=== PATIENT | female | born 1945 | race Caucasian/White ===

== ENCOUNTER 2016-05-20 13:05 | Observation (INO) | payer MEDICARE, OTHER ==
[2016-05-20] MEDS ORDERED: NITROGLYCERIN SL TABS 0.4 MG TAB SUBLINGUAL STA (13:31)
--- NOTE | 2016-05-20 13:36 | ED ---
Chest Pain HPI - General Chief Complaint: Chest Pain Stated Complaint: Gas, Chest Ache Time Seen by Provider: 05/20/16 13:17 Source: patient, RN notes reviewed Mode of arrival: wheelchair Limitations: no limitations - History of Present Illness Initial Comments: This is a 71-year-old female with a history of extensive heart disease including ND. A cath with stents and coronary artery bypass 3 who states she had the onset of chest pain and pressure for the past couple days. She states it's 4-5/10 in severity she then belching a lot which does seem to help the pain and pressure. She does have a history of cholecystectomy in the past. She also has reflux no history of ulcers. She denies any fevers chills overt nausea vomiting or sweats. MD Complaint: chest pain, other - Related Data Home Medications Medication Instructions Recorded Confirmed Atorvastatin [Lipitor] 80 mg PO DAILY 08/08/14 05/20/16 Calcium Carbonate/Vitamin D3 2 tab PO DAILY 08/08/14 05/20/16 [Calcium 600-Vit D3 400 Tablet] Fenofibrate Nanocrystallized 145 mg PO DAILY 08/08/14 05/20/16 [Tricor] Insulin Glargine [Lantus] 50 unit SQ HS 08/08/14 05/20/16 Insulin Glulisine [Apidra] See Protocol SQ ACHS PRN 08/08/14 05/20/16 Nitroglycerin Sl Tabs [Nitrostat] 0.4 mg SUBLINGUAL Q5M PRN 08/08/14 05/20/16 Sertraline [Zoloft] 50 mg PO DAILY 08/08/14 05/20/16 Isosorbide Mononitrate ER [Imdur] 60 mg PO DAILY 11/14/14 05/20/16 Clopidogrel [Plavix] 75 mg PO HS 11/22/14 05/20/16 Lansoprazole [Prevacid] 30 mg PO DAILY 11/22/14 05/20/16 Aspirin EC [Ecotrin] 325 mg PO DAILY 05/20/16 05/20/16 Carvedilol [Coreg] 25 mg PO BID 05/20/16 05/20/16 Previous Rx's Medication Instructions Recorded Lisinopril [Zestril] 10 mg PO DAILY #30 tab 08/10/14 Spironolactone [Aldactone] 25 mg PO DAILY #30 tab 08/10/14 Allergies Allergy/AdvReac Type Severity Reaction Status Date / Time adhesive Allergy Itching Verified 05/20/16 14:03 codeine Allergy Hallucinati Verified 05/20/16 14:03 ons dipyridamole Allergy heart Verified 05/20/16 14:03 [From Persantine] stopped metformin AdvReac Unknown Verified 05/20/16 14:03 Review of Systems ROS Statement: Those systems with pertinent positive or pertinent negative responses have been documented in the HPI. ROS Other: All systems not noted in ROS Statement are negative. EKG Findings - EKG Results: EKG: interpreted by ERMD (Additionally the EKG was compared with one submitted from 12/15/14 no definite acute changes), sinus rhythm (Sinus rhythm a rate of 83 OK interval 198 QRS duration 122 QT/QTC of 420/493 evidence of old inferior changes nonspecific ST-T wave configuration.) Past Medical History Past Medical History: Coronary Artery Disease (CAD), Chest Pain / Angina, Diabetes Mellitus, GERD/Reflux, Hyperlipidemia, Hypertension, Myocardial Infarction (ND), Osteoarthritis (OA), Syncope Additional Past Medical History / Comment(s): POLIO, ISCHEMIC CARDIOMYOPATHY EF 30%, PAD, ARRYTHMIA, SEE H&P Last Myocardial Infarction Date:: 2012 History of Any Multi-Drug Resistant Organisms: None Reported Past Surgical History: Appendectomy, Cholecystectomy, Coronary Bypass/CABG, Heart Catheterization, Heart Catheterization With Stent, Hysterectomy Additional Past Surgical History / Comment(s): joanna carotid endarderectomies, ovarian cyst, STENT LT SUBCLAVIAN - TOTAL 4 STENTS. Past Anesthesia/Blood Transfusion Reactions: No Reported Reaction Date of Last Stent Placement:: 11/2014 Type of Cardiac Device: AICD Past Psychological History: Depression Smoking Status: Never smoker Past Alcohol Use History: None Reported Past Drug Use History: None Reported - Past Family History Father Family Medical History: Cancer Mother Family Medical History: Coronary Artery Disease (CAD), Hyperlipidemia, Hypertension Additional Family Medical History / Comment(s): CABG General Exam - General Exam Comments Initial Comments: This is a well-developed well-nourished awake alert oriented 3 female she is actively belching Limitations: no limitations General appearance: alert, anxious Head exam: Present: atraumatic, normocephalic, normal inspection Eye exam: Present: normal appearance, PERRL, EOMI. Absent: scleral icterus, conjunctival injection, periorbital swelling ENT exam: Present: normal exam, mucous membranes moist Neck exam: Present: normal inspection. Absent: tenderness, meningismus, lymphadenopathy Respiratory exam: Present: normal lung sounds bilaterally. Absent: respiratory distress, wheezes, rales, rhonchi, stridor Cardiovascular Exam: Present: regular rate, normal rhythm, normal heart sounds. Absent: systolic murmur, diastolic murmur, rubs, gallop, clicks GI/Abdominal exam: Present: soft, normal bowel sounds, other (Increased tympany no tenderness on palpation no guarding rebound masses or bruits). Absent: distended, tenderness, guarding, rebound, rigid Extremities exam: Present: normal inspection, full ROM, normal capillary refill. Absent: tenderness, pedal edema, joint swelling, calf tenderness Back exam: Present: normal inspection Neurological exam: Present: alert, oriented X3, CN II-XII intact Psychiatric exam: Present: normal affect, normal mood Skin exam: Present: warm, dry, intact, normal color. Absent: rash Course Vital Signs 05/20/16 05/20/16 05/20/16 13:12 15:25 16:08 Temperature 98.4 F Pulse Rate 82 86 82 Respiratory 16 16 Rate Blood Pressure 165/67 163/74 155/64 O2 Sat by Pulse 95 97 100 Oximetry - Reevaluation(s) Reevaluation #1: 05/20/16 16:14 Patient states he had minimal relief from nitroglycerin the GI cocktail however did help somewhat Chest Pain MDM - MDM Any review the imaging no acute findings. Patient states she still have recurrent retrosternal chest discomfort with belching she later stated that she has she did get some relief in the nitroglycerin. I did discuss the case with Dr. Lewis the patient will be admitted with cardiology consultation. Critical Care Time Critical Care Time: Yes Critical Care Time: 31 minutes of critical care time which includes initial presentation with history physical lab and x-ray orders. Reevaluation the patient multiple occasions discussion with the patient and family regarding findings as well as the admitting physician. Evaluation x-ray and lab orders documentation. Disposition Clinical Impression: Unstable angina pectoris, Atypical chest pain Disposition: [facility] Condition: Stable
[2016-05-20 13:48] LABS: Basophils % (A) 0 %; CH 28.8; CHCM 33.3; Eosinophils # (A) 0.1 k/uL (0-0.7); Eosinophils % (A) 0 %; HCT 34.8 % (34.0-46.0); HDW 2.94; HGB 11.5 gm/dL (11.4-16.0); Luc # (Auto) 0.12; Luc % (Auto) 1; Lymphocytes # (A) 0.8 k/uL (1.0-4.8); Lymphocytes % (A) 7 %; MCH 28.8 pg (25.0-35.0); MCHC 33.1 g/dL (31.0-37.0); MCV 86.9 fL (80.0-100.0); Monocytes # (A) 0.5 k/uL (0-1.0); Monocytes % (A) 4 %; Neutrophils # (A) 10.7 k/uL (1.3-7.7); Neutrophils % (A) 88 %; WBC 12.1 k/uL (3.8-10.6); WBC (Perox) 12.68
--- NOTE | 2016-05-20 13:56 | XR ---
EXAMINATION TYPE: XR chest 2V DATE OF EXAM: 05/20/2016 1:48 PM COMPARISON: 01/11/2015 HISTORY: Chest pain FINDINGS: The lungs are clear and there is no pneumothorax, pleural effusion, or focal pneumonia. Heart is enl arged, cardiac device, and postsurgical changes noted. Atherosclerotic change aorta. Surgical clips in the abdomen. Hypertrophic change of the spine. IMPRESSION: 1. No acute process.
[2016-05-20] MEDS ORDERED: MAG HYDROX/AL HYDROX/SIMETH 30 ML, HYOSCYAMINE ELIXIR 10 ML, CIMETIDINE HCL 300 MG PO STA ×3 (14:00)
[2016-05-20 14:01] LABS: ALT 30 U/L (9-52); AST 26 U/L (14-36); Alkaline Phosphatase 66 U/L (38-126); Amylase <30 U/L (30-110); Anion Gap 17 mmol/L; Blood Urea Nitrogen 25 mg/dL (7-17); Calcium 9.7 mg/dL (8.4-10.2); Carbon Dioxide 24 mmol/L (22-30); Chloride 95 mmol/L (98-107); Glucose 356 mg/dL (74-99); INR 1.2 (<1.1); Magnesium 1.3 mg/dL (1.6-2.3); Non-African American GFR(MDRD) >60 (>60 ml/min/1.73 sqM); Partial Thromboplastin Time 23.2 sec (22.0-30.0); Potassium 4.5 mmol/L (3.5-5.1); Prothrombin Time 11.7 sec (9.0-12.0); Sodium 136 mmol/L (137-145); Total Bilirubin 0.9 mg/dL (0.2-1.3)
[2016-05-20 14:07] LABS: Creatine Kinase 21 U/L (30-135)
[2016-05-20] MEDS ORDERED: MAGNESIUM SULFATE-D5W PMX 1 GM in DEXTROSE/WATER 1 100ML.BAG IVPB ONE (14:09)
[2016-05-20] MEDS ORDERED: SODIUM CHLORIDE 0.9% 1,000 ML IV STA (14:09)
[2016-05-20 14:20] LABS: Creatine Kinase MB <0.2 ng/mL (0.0-2.4); Troponin I <0.012 ng/mL (0.000-0.034)
[2016-05-20] MEDS ORDERED: NITROGLYCERIN OINT 1 INCH/GM PACKET TOPICAL STA (16:13)
[2016-05-20] MEDS ORDERED: HEPARIN SODIUM,PORCINE 5,000 UNIT/ML 1 ML VIAL IV ONE (16:17)
[2016-05-20] MEDS ORDERED: NITROGLYCERIN SL TABS 0.4 MG TAB SUBLINGUAL PRN (16:17)
[2016-05-20] MEDS ORDERED: HEPARIN SODIUM,PORCINE/D5W PMX 25,000 UNIT in DEXTROSE/WATER 1 500ML.BAG IV SCH (16:30)
[2016-05-20 17:16] LABS: Glucose,Whole Blood 294 mg/dL (75-99)
[2016-05-20 18:12] VITALS: BMI 29.2
[2016-05-20] MEDS: NITROGLYCERIN OINT 1 INCH/GM PACKET TOPICAL SCH (18:40)
[2016-05-20] MEDS: CARVEDILOL 12.5 MG TAB PO SCH (18:44)
[2016-05-20] MEDS: CLOPIDOGREL 75 MG TAB PO SCH (20:26)
[2016-05-20 20:28] LABS: Creatine Kinase 27 U/L (30-135)
[2016-05-20] MEDS: MAG HYDROX/AL HYDROX/SIMETH 30 ML CUP PO PRN (20:28)
[2016-05-20] MEDS ORDERED: PROCHLORPERAZINE 5 MG TAB PO PRN (20:45)
[2016-05-20] MEDS: ONDANSETRON 4 MG/2 ML VIAL IVP PRN (20:49)
[2016-05-20 21:09] LABS: Creatine Kinase MB <0.2 ng/mL (0.0-2.4); Troponin I 0.013 ng/mL (0.000-0.034)
[2016-05-20 21:29] LABS: Glucose,Whole Blood 335 mg/dL (75-99)
[2016-05-20] MEDS: INSULIN LISPRO (humaLOG) 300 UNIT/3 ML VIAL SQ SCH (21:34)
[2016-05-20] MEDS: INSULIN GLARGINE 100 UNIT/ML 10 ML VIAL SQ SCH (21:34)
[2016-05-20] MEDS: PANTOPRAZOLE 40 MG/10 ML VIAL IVP SCH (22:12)
[2016-05-21] MEDS ORDERED: HEPARIN SODIUM,PORCINE 5,000 UNIT/ML 1 ML VIAL IV STA (00:44)
[2016-05-21] MEDS: NITROGLYCERIN OINT 1 INCH/GM PACKET TOPICAL SCH ×4 (01:10→17:48)
[2016-05-21 02:04] LABS: Creatine Kinase 35 U/L (30-135)
[2016-05-21 02:18] LABS: Creatine Kinase MB <0.2 ng/mL (0.0-2.4); Troponin I 0.021 ng/mL (0.000-0.034)
[2016-05-21] MEDS: ONDANSETRON 4 MG/2 ML VIAL IVP PRN ×2 (04:30→12:31)
[2016-05-21 06:37] LABS: Glucose,Whole Blood 99 mg/dL (75-99)
[2016-05-21] MEDS ORDERED: PANTOPRAZOLE 40 MG TABLET PO SCH (07:30)
[2016-05-21 08:27] LABS: Anion Gap 12 mmol/L; Blood Urea Nitrogen 20 mg/dL (7-17); Calcium 8.8 mg/dL (8.4-10.2); Carbon Dioxide 27 mmol/L (22-30); Chloride 100 mmol/L (98-107); Cholesterol 114 mg/dL (<200); Glucose 88 mg/dL (74-99); HDL Cholesterol 31 mg/dL (40-60); Magnesium 1.8 mg/dL (1.6-2.3); Non-African American GFR(MDRD) >60 (>60 ml/min/1.73 sqM); Sodium 139 mmol/L (137-145); Triglycerides 130 mg/dL (<150)
[2016-05-21] MEDS ORDERED: ISOSORBIDE MONONITRATE ER 60 MG TAB.ER.24H PO SCH (09:00)
--- NOTE | 2016-05-21 09:10 | P.CRDCN ---
History of Present Illness Consult date: 05/21/16 History of present illness: This is a 71-year-old female with history of coronary artery disease and previous bypass surgery and also subclavian stenosis status post stent placement comes to the hospital with complaints of gaseous abdominal and chest discomfort and belching. She doesn't complain of any significant chest pain that reminded her off the previous ischemic episodes. She did have a bowel movement prior to coming to the hospital. Doesn't seem to be warming. She still has mild discomfort in the abdomen. Abdomen is distended. This patient has history of previous bypass surgery and also AICD placement and follows with Dr. Gutierrez. Her EKGs did not reveal any acute changes of ischemia. Her cardiac enzymes studies are negative for myocardial infarction. At this point I 'm going to get a plain x-ray of the abdomen and also get a the surgical or GI consult for further evaluation of the symptoms which seemed to be continue. If GI workup is negative, may consider doing a nuclear stress test to rule out any progression of ischemic heart disease. We'll also obtain an echocardiogram Review of Systems As per the chart Past Medical History Past Medical History: Coronary Artery Disease (CAD), Chest Pain / Angina, Diabetes Mellitus, GERD/Reflux, Hyperlipidemia, Hypertension, Myocardial Infarction (HI), Osteoarthritis (OA), Syncope Additional Past Medical History / Comment(s): POLIO, ISCHEMIC CARDIOMYOPATHY EF 30%, PAD, ARRYTHMIA, SEE H&P Last Myocardial Infarction Date:: 2012 History of Any Multi-Drug Resistant Organisms: None Reported Past Surgical History: Appendectomy, Cholecystectomy, Coronary Bypass/CABG, Heart Catheterization, Heart Catheterization With Stent, Hysterectomy Additional Past Surgical History / Comment(s): joanna carotid endarderectomies, ovarian cyst, STENT LT SUBCLAVIAN - TOTAL 4 STENTS. Past Anesthesia/Blood Transfusion Reactions: No Reported Reaction Date of Last Stent Placement:: 11/2014 Type of Cardiac Device: AICD Past Psychological History: Anxiety Additional Psychological History / Comment(s): pt. states she has a history of anxiety and it is controlled with Zoloft Smoking Status: Never smoker Past Alcohol Use History: None Reported Past Drug Use History: None Reported - Past Family History Father Family Medical History: Cancer Additional Family Medical History / Comment(s): pt. states her father had throat cancer Mother Family Medical History: Coronary Artery Disease (CAD), Hyperlipidemia, Hypertension Additional Family Medical History / Comment(s): CABG Medications and Allergies Home Medications Medication Instructions Recorded Confirmed Type Atorvastatin [Lipitor] 80 mg PO DAILY 08/08/14 05/20/16 History Calcium Carbonate/Vitamin D3 2 tab PO DAILY 08/08/14 05/20/16 History [Calcium 600-Vit D3 400 Tablet] Fenofibrate Nanocrystallized 145 mg PO DAILY 08/08/14 05/20/16 History [Tricor] Insulin Glargine [Lantus] 50 unit SQ HS 08/08/14 05/20/16 History Insulin Glulisine [Apidra] See Protocol SQ ACHS PRN 08/08/14 05/20/16 History Nitroglycerin Sl Tabs [Nitrostat] 0.4 mg SUBLINGUAL Q5M PRN 08/08/14 05/20/16 History Sertraline [Zoloft] 50 mg PO DAILY 08/08/14 05/20/16 History Isosorbide Mononitrate ER [Imdur] 60 mg PO DAILY 11/14/14 05/20/16 History Clopidogrel [Plavix] 75 mg PO HS 11/22/14 05/20/16 History Lansoprazole [Prevacid] 30 mg PO DAILY 11/22/14 05/20/16 History Aspirin EC [Ecotrin] 325 mg PO DAILY 05/20/16 05/20/16 History Carvedilol [Coreg] 25 mg PO BID 05/20/16 05/20/16 History Allergies Allergy/AdvReac Type Severity Reaction Status Date / Time adhesive Allergy Itching Verified 05/20/16 14:03 codeine Allergy Hallucinati Verified 05/20/16 14:03 ons dipyridamole Allergy heart Verified 05/20/16 14:03 [From Persantine] stopped metformin AdvReac Unknown Verified 05/20/16 14:03 Physical Exam Vitals: Vital Signs Temp Pulse Pulse Resp BP BP Pulse Ox 05/21/16 07:34 100.7 F H 82 16 133/52 95 05/21/16 04:00 100.1 F H 82 18 104/48 98 05/21/16 00:00 100 F H 84 18 120/50 94 L 05/20/16 20:00 84 16 05/20/16 19:54 98.2 F 84 16 151/61 97 05/20/16 19:05 18 01/02/17 17:14 92 20 132/62 97 05/20/16 16:39 99.0 F 85 16 158/61 97 Intake and Output 05/20/16 05/21/16 05/21/16 22:59 06:59 14:59 Intake Total 222 645.192 Balance 222 645.192 Intake: IV 463 0.9 NS @ KVO 240 Heparin Sodium,Porcine/ 223 D5w Pmx 25,000 unit In Dextrose/Water 1 500ml. bag @ 12 UNITS/KG/HR 16. 32 mls/hr IV .Q24H NOE Rx #:[id number] Intake, IV Titration 132.192 Amount Heparin Sodium,Porcine/ 132.192 D5w Pmx 25,000 unit In Dextrose/Water 1 500ml. bag @ 12 UNITS/KG/HR 16. 32 mls/hr IV .Q24H NOE Rx #:[id number] Oral 222 50 Other: Voiding Method Toilet Toilet # Voids 1 1 Weight 68.039 kg GENERAL EXAM: Patient is alert and oriented and doesn't appear to be in any acute distress HEENT: Normocephalic. Normal reaction of pupils, equal size, normal range of extraocular motion. NECK: No masses, no nuchal rigidity. Carotid bruit heard bilaterally CHEST: No chest wall deformity. LUNGS: Equal air entry with no crackles or wheeze. HEART: S1 and S2 normal systolic murmur heard in the aortic area ABDOMEN: Distended, soft, and no rigidity or guarding. Mild tenderness SKIN: No rashes CENTRAL NERVOUS SYSTEM: No focal deficits. EXTREMITIES: No cyanosis, clubbing or edema. Results 05/20/16 13:31 05/21/16 07:20 Cardiac Enzymes 05/20/16 05/21/16 Range/Units 19:45 01:11 CK-MB (CK-2) <0.2 <0.2 (0.0-2.4) ng/mL Troponin I 0.013 0.021 (0.000-0.034) ng/mL Coagulation 05/20/16 05/21/16 Range/Units 23:30 07:20 APTT 30.9 H 49.6 H (22.0-30.0) sec Lipids 05/21/16 Range/Units 07:20 Triglycerides 130 (<150) mg/dL Cholesterol 114 (<200) mg/dL HDL Cholesterol 31 L (40-60) mg/dL Comprehensive Metabolic Panel 05/21/16 Range/Units 07:20 Sodium 139 (137-145) mmol/L Potassium 4.0 (3.5-5.1) mmol/L Chloride 100 (98-107) mmol/L Carbon Dioxide 27 (22-30) mmol/L BUN 20 H (7-17) mg/dL Creatinine 0.85 (0.52-1.04) mg/dL Glucose 88 (74-99) mg/dL Calcium 8.8 (8.4-10.2) mg/dL Current Medications Generic Name Dose Route Start Last Admin Trade Name Freq PRN Reason Stop Dose Admin Al Hydroxide/Mg Hydroxide 30 ml 05/20/16 18:30 05/20/16 20:28 Maalox PO 30 ml QID PRN Administration GI Upset Aspirin 325 mg 05/21/16 09:00 Aspirin PO DAILY [facility] Atorvastatin Calcium 80 mg 05/21/16 09:00 Lipitor PO DAILY [facility] Calcium Carbonate 2 each 05/21/16 09:00 Oscal 500+D PO DAILY [facility] Carvedilol 25 mg 05/20/16 17:30 05/20/16 18:44 Coreg PO 25 mg BID-W/MEALS NOE Administration Clopidogrel Bisulfate 75 mg 05/20/16 21:00 05/20/16 20:26 Plavix PO 75 mg HS [facility] Administration Fenofibrate 160 mg 05/21/16 09:00 Lofibra PO DAILY [facility] Heparin Sodium/Dextrose 25,000 500 mls @ 16.32 mls/hr 05/20/16 16:30 00:42 unit/ IV Solution IV 15 units/kg/hr .Q24H [facility] 20.41 mls/hr Protocol Titration 12 UNITS/KG/HR Insulin Glargine 50 unit 05/20/16 21:00 05/20/16 21:34 Lantus SQ 50 unit HS [facility] Administration Insulin Human Lispro 0 unit 05/20/16 21:00 05/20/16 21:34 Humalog SQ 6 unit ACHS [facility] Administration Protocol Lisinopril 10 mg 05/21/16 09:00 Zestril PO DAILY [facility] Nitroglycerin 1 inch 05/20/16 18:00 05/21/16 05:45 Nitro-Bid Oint TOPICAL Not Given Q6HR [facility] Nitroglycerin 0.4 mg 05/20/16 16:17 Nitrostat SUBLINGUAL Q5M PRN Chest Pain Ondansetron HCl 4 mg 05/20/16 18:29 05/21/16 04:30 Zofran IVP 4 mg Q6HR PRN Administration Nausea And Vomiting Pantoprazole Sodium 40 mg 05/20/16 20:45 05/20/16 22:12 Protonix IVP 40 mg DAILY NOE Administration Prochlorperazine Maleate 5 mg 05/20/16 20:45 Compazine PO Q6HR PRN Nausea And Vomiting Sertraline HCl 50 mg 05/21/16 09:00 Zoloft PO DAILY NOE Spironolactone 25 mg 05/21/16 09:00 Aldactone PO DAILY NOE Intake and Output 05/20/16 05/21/16 05/21/16 22:59 06:59 14:59 Intake Total 222 645.192 Balance 222 645.192 Intake: IV 463 0.9 NS @ KVO 240 Heparin Sodium,Porcine/ 223 D5w Pmx 25,000 unit In Dextrose/Water 1 500ml. bag @ 12 UNITS/KG/HR 16. 32 mls/hr IV .Q24H NOE Rx #:[id number] Intake, IV Titration 132.192 Amount Heparin Sodium,Porcine/ 132.192 D5w Pmx 25,000 unit In Dextrose/Water 1 500ml. bag @ 12 UNITS/KG/HR 16. 32 mls/hr IV .Q24H NOE Rx #:[id number] Oral 222 50 Other: Voiding Method Toilet Toilet # Voids 1 1 Weight 68.039 kg 05/21/16 07:20 EKG Interpretations (text) Sinus rhythm without any acute changes Assessment and Plan (1) Flatulence, eructation and gas pain Status: Acute (2) Atypical chest pain Status: Acute (3) Diabetes Status: Acute (4) Hx of CABG Status: Acute (5) Hyperlipidemia Status: Acute (6) Hypotension Status: Acute (7) Ischemic cardiomyopathy Status: Acute Plan: Her symptoms appear to be atypical for angina. I would recommend obtaining GI/ surgical consult. We'll get a plain x-ray of the abdomen. I'll also obtain an echocardiogram to assess LV function and also to rule out significant aortic stenosis. If GI workup is negative, may consider doing a Lexiscan stress test to rule out any progression of ischemic heart disease.
[2016-05-21 09:11] LABS: Basophils % (A) 0 %; CH 28.6; CHCM 33.3; Eosinophils % (A) 0 %; HCT 29.6 % (34.0-46.0); HDW 2.86; Luc # (Auto) 0.09; Luc % (Auto) 1; Lymphocytes % (A) 12 %; MCH 29.1 pg (25.0-35.0); MCHC 33.8 g/dL (31.0-37.0); MCV 86.2 fL (80.0-100.0); Mean Platelet Volume 9.4; Monocytes # (A) 0.4 k/uL (0-1.0); Monocytes % (A) 5 %; Neutrophils # (A) 6.8 k/uL (1.3-7.7); Neutrophils % (A) 82 %; RBC 3.43 m/uL (3.80-5.40); WBC 8.3 k/uL (3.8-10.6); WBC (Perox) 8.73
[2016-05-21] MEDS: PANTOPRAZOLE 40 MG/10 ML VIAL IVP SCH (09:33)
[2016-05-21] MEDS: INSULIN LISPRO (humaLOG) 300 UNIT/3 ML VIAL SQ SCH ×4 (09:33→22:18)
[2016-05-21 11:07] LABS: Glucose,Whole Blood 90 mg/dL (75-99)
[2016-05-21] MEDS ORDERED: RX INFO: IV CONTRAST WAS GIVEN 1 EACH MISC MISCELLANE PRN (11:49)
[2016-05-21] MEDS: IOHEXOL 350 MG/ML 25 ML BOTTLE (ORAL USE) PO PRN ×2 (12:23→13:33)
--- NOTE | 2016-05-21 12:26 | XR ---
Abdomen HISTORY: Distention, left lower quadrant pain Of the abdomen submitted on 2 images and correlated to previous of 16 November 2012 Surgical clips again noted in the right upper quadrant and right groin. There are vascular calcificat ions present. Intracardiac defibrillator lead is overlying the right ventricle. There is a spinal cur vature. There are overlying cardiac leads. No pneumoperitoneum or bowel obstruction. IMPRESSION: No acute abnormalities evident.
--- NOTE | 2016-05-21 12:26 | ECHOF ---
Referral Reason:assess LV function,rule out stenosis MEASUREMENTS -------- HEIGHT: 152.4 cm WEIGHT: 68.0 kg BP: IVSd: 1.3 cm (0.6 - 1.1) LVIDd: 4.8 cm (3.9 - 5.3) LVPWd: 1.0 cm (0.6 - 1.1) IVSs: 1.7 cm LVIDs: 4.0 cm LVPWs: 0.9 cm Ao Diam: 2.4 cm (2.0 - 3.7) AV Cusp: 1.6 cm (1.5 - 2.6) LA Diam: 4.1 cm (2.7 - 3.8) MV EXCURSION: 21.171 mm (> 18.000) MV EF SLOPE: 73 mm/s (70 - 150) EPSS: 0.7 cm MV E Chauncey: 1.25 m/s MV DecT: 152 ms MV A Chauncey: 1.17 m/s MV E/A Ratio: 1.07 RAP: 5.00 mmHg RVSP: 13.75 mmHg FINDINGS -------- Sinus rhythm. Pacerwire seen in RV and RA. AICD This was a technically good study. There is mild concentric left ventricular hypertrophy. Overall left ventricular systolic function is moderate-severely impaired with, an EF between 30 - 35 %. Inferiorlateral Hypokinesis Septal Hypokinesis The right ventricle is normal in size and function. The left atrium is mildly dilated. The right atrium is normal in size. Aortic valve is trileaflet and is mildly thickened. The mitral valve leaflets are mildly thickened. Mild mitral annular calcification present. Moderate mitral regurgitation is present. Mild tricuspid regurgitation present. The right ventricular systolic pressure, as measured by Doppler, is 13.75mmHg. Pulmonic valve appears structurally normal. The aortic root size is normal. The pericardium is normal. CONCLUSIONS -------- 1. Sinus rhythm. 2. The left atrium is mildly dilated. 3. The right atrium is normal in size. 4. Aortic valve is trileaflet and is mildly thickened. 5. The mitral valve leaflets are mildly thickened. 6. Mild mitral annular calcification present. 7. Moderate mitral regurgitation is present. 8. Mild tricuspid regurgitation present. 9. The right ventricular systolic pressure, as measured by Doppler, is 13.75mmHg. 10. Pulmonic valve appears structurally normal. 11. The aortic root size is normal. 12. Pacerwire seen in RV and RA. 13. The pericardium is normal. 14. AICD 15. This was a technically good study. 16. There is mild concentric left ventricular hypertrophy. 17. Overall left ventricular systolic function is moderate-severely impaired with, an EF between 30 - 35 %. 18. Inferiorlateral Hypokinesis 19. Septal Hypokinesis 20. The right ventricle is normal in size and function. PROTOTYPE CARPENTER: Rima Christianson RDCS
[2016-05-21 12:54] LABS: Hemoglobin A1C 6.4 % (4.2-6.1)
--- NOTE | 2016-05-21 14:17 | P.CONS ---
History of Present Illness - Reason for Consult Consult date: 05/21/16 Abdominal distention excessive belching Requesting physician: Adriana Lewis - History of Present Illness 71-year-old female patient of Dr. Azul with a past medical history of coronary artery disease on aspirin and Plavix, ischemic cardiomyopathy, carotid endarterectomy, subclavian stenosis with stent, AICD, CABG, diabetes mellitus, hypertension, [place], and hyperlipidemia. Presents with 4 day history of abdominal distention, nausea, excessive gaseous belching without chest pain. No history of GERD or EGD. Denies weight loss, vomiting, fever, chills, hematemesis, hematochezia, or melena however T-max 100.7 early this morning. Evaluated by cardiology; EKG did not reveal acute changes of ischemia, troponins negative for [place]. GI workup recommended by cardiology. White count 12.1 currently 8.1. Hemoglobin 11.5 currently 10. Platelet 118. Abdominal x-ray no acute abnormalities evident. Review of Systems All systems: negative (See HPI) Past Medical History Past Medical History: Coronary Artery Disease (CAD), Chest Pain / Angina, Diabetes Mellitus, GERD/Reflux, Hyperlipidemia, Hypertension, Myocardial Infarction ([place]), Osteoarthritis (OA), Syncope Additional Past Medical History / Comment(s): POLIO, ISCHEMIC CARDIOMYOPATHY EF 30%, PAD, ARRYTHMIA, SEE H&P Last Myocardial Infarction Date:: 2012 History of Any Multi-Drug Resistant Organisms: None Reported Past Surgical History: Appendectomy, Cholecystectomy, Coronary Bypass/CABG, Heart Catheterization, Heart Catheterization With Stent, Hysterectomy Additional Past Surgical History / Comment(s): joanna carotid endarderectomies, ovarian cyst, STENT LT SUBCLAVIAN - TOTAL 4 STENTS. Past Anesthesia/Blood Transfusion Reactions: No Reported Reaction Date of Last Stent Placement:: 11/2014 Type of Cardiac Device: AICD Past Psychological History: Anxiety Additional Psychological History / Comment(s): pt. states she has a history of anxiety and it is controlled with Zoloft Smoking Status: Never smoker Past Alcohol Use History: None Reported Past Drug Use History: None Reported - Past Family History Father Family Medical History: Cancer Additional Family Medical History / Comment(s): pt. states her father had throat cancer Mother Family Medical History: Coronary Artery Disease (CAD), Hyperlipidemia, Hypertension Additional Family Medical History / Comment(s): CABG Medications and Allergies Home Medications Medication Instructions Recorded Confirmed Type Atorvastatin [Lipitor] 80 mg PO DAILY 08/08/14 05/20/16 History Calcium Carbonate/Vitamin D3 2 tab PO DAILY 08/08/14 05/20/16 History [Calcium 600-Vit D3 400 Tablet] Fenofibrate Nanocrystallized 145 mg PO DAILY 08/08/14 05/20/16 History [Tricor] Insulin Glargine [Lantus] 50 unit SQ HS 08/08/14 05/20/16 History Insulin Glulisine [Apidra] See Protocol SQ ACHS PRN 08/08/14 05/20/16 History Nitroglycerin Sl Tabs [Nitrostat] 0.4 mg SUBLINGUAL Q5M PRN 08/08/14 05/20/16 History Sertraline [Zoloft] 50 mg PO DAILY 08/08/14 05/20/16 History Isosorbide Mononitrate ER [Imdur] 60 mg PO DAILY 11/14/14 05/20/16 History Clopidogrel [Plavix] 75 mg PO HS 11/22/14 05/20/16 History Lansoprazole [Prevacid] 30 mg PO DAILY 11/22/14 05/20/16 History Aspirin EC [Ecotrin] 325 mg PO DAILY 05/20/16 05/20/16 History Carvedilol [Coreg] 25 mg PO BID 05/20/16 05/20/16 History Allergies Allergy/AdvReac Type Severity Reaction Status Date / Time adhesive Allergy Itching Verified 05/20/16 14:03 codeine Allergy Hallucinati Verified 05/20/16 14:03 ons dipyridamole Allergy heart Verified 05/20/16 14:03 [From Persantine] stopped metformin AdvReac Unknown Verified 05/20/16 14:03 Physical Exam Vitals: Vital Signs Temp Pulse Pulse Resp BP BP Pulse Ox 05/21/16 12:00 86 16 05/21/16 11:41 99.1 F 86 16 97/50 96 05/21/16 08:00 82 16 05/21/16 07:34 100.7 F H 82 16 133/52 95 05/21/16 04:00 100.1 F H 82 18 104/48 98 05/21/16 00:00 100 F H 84 18 120/50 94 L 05/20/16 20:00 84 16 05/20/16 19:54 98.2 F 84 16 151/61 97 05/20/16 19:05 18 05/20/16 17:14 92 20 132/62 97 05/20/16 16:39 99.0 F 85 16 158/61 97 Intake and Output 05/20/16 05/21/16 05/21/16 22:59 06:59 14:59 Intake Total 222 645.192 Balance 222 645.192 Intake: IV 463 0.9 NS @ KVO 240 Heparin Sodium,Porcine/ 223 D5w Pmx 25,000 unit In Dextrose/Water 1 500ml. bag @ 12 UNITS/KG/HR 16. 32 mls/hr IV .Q24H NOE Rx #:[id number] Intake, IV Titration 132.192 Amount Heparin Sodium,Porcine/ 132.192 D5w Pmx 25,000 unit In Dextrose/Water 1 500ml. bag @ 12 UNITS/KG/HR 16. 32 mls/hr IV .Q24H NOE Rx #:[id number] Oral 222 50 Other: Voiding Method Toilet Toilet Toilet # Voids 1 1 Weight 68.039 kg General appearance: The patient is alert, oriented, in no acute distress. Excessive belching throughout exam. HET: Head is normocephalic and atraumatic. Pupils are equal and reactive. Oropharynx is clear without lesions. Neck: Supple without lymphadenopathy. Trachea midline. Heart: S1 S2. Regular rate and rhythm. Lungs: No crackles or wheezes are heard. Abdomen: Soft, nontender, nondistended with bowel sounds. No peritoneal signs. No palpable organomegaly or masses. Extremities: Normal skin color and turgor. No cyanosis, rash, ulceration, clubbing, or edema. Radial and pedal pulses are 2/4 bilaterally. Neurological: No focal deficits. Strength and sensation are grossly intact. Results CBC & Chem 7: 05/21/16 07:20 05/21/16 07:20 Labs: Abnormal Lab Results - Last 24 Hours (Table) 05/20/16 05/20/16 05/20/16 Range/Units 17:09 19:45 21:17 RBC (3.80-5.40) m/uL Hgb (11.4-16.0) gm/dL Hct (34.0-46.0) % Plt Count (150-450) k/uL APTT (22.0-30.0) sec BUN (7-17) mg/dL POC Glucose (mg/dL) 294 H 335 H (75-99) mg/dL Total Creatine Kinase 27 L (30-135) U/L HDL Cholesterol (40-60) mg/dL 05/20/16 05/21/16 05/21/16 Range/Units 23:30 07:20 07:20 RBC 3.43 L (3.80-5.40) m/uL Hgb 10.0 L D (11.4-16.0) gm/dL Hct 29.6 L (34.0-46.0) % Plt Count 118 L (150-450) k/uL APTT 30.9 H (22.0-30.0) sec BUN 20 H (7-17) mg/dL POC Glucose (mg/dL) (75-99) mg/dL Total Creatine Kinase (30-135) U/L HDL Cholesterol 31 L (40-60) mg/dL 05/21/16 Range/Units 07:20 RBC (3.80-5.40) m/uL Hgb (11.4-16.0) gm/dL Hct (34.0-46.0) % Plt Count (150-450) k/uL APTT 49.6 H (22.0-30.0) sec BUN (7-17) mg/dL POC Glucose (mg/dL) (75-99) mg/dL Total Creatine Kinase (30-135) U/L HDL Cholesterol (40-60) mg/dL Abdominal x-ray: report reviewed (Review by Dr. Oro) Assessment and Plan (1) Eructation Narrative/Plan: 71-year-old female with significant cardiac history presents with 4 day history of excessive belching gaseous distention without abdominal pain and weight loss. Status: Acute (2) Abdominal distension (gaseous) Status: Acute Plan: 1. Continue with IV Protonix daily. Hold aspirin and Plavix tonight may resume after EGD evaluation tomorrow. 2. Will proceed with EGD evaluation tomorrow. The aerial tram operator has discussed the risks, benefits and alternative therapies for the above-mentioned procedure and for both sedation/analgesia as well as necessary blood product administration, if indicated, as they pertain to this patient. The patient has indicated understanding and acceptance of the risks and procedures discussed. Thank you for this kind referral and the opportunity to participate in the care of your patient. This consultation was discussed with Dr. Oro. The impression and plan of care have been directed as dictated.
[2016-05-21] MEDS: CARVEDILOL 12.5 MG TAB PO SCH ×2 (14:45→17:48)
[2016-05-21] MEDS: ASPIRIN 325 MG TAB PO SCH (14:46)
[2016-05-21] MEDS: LISINOPRIL 10 MG TAB PO SCH (14:46)
[2016-05-21] MEDS: ATORVASTATIN 80 MG TAB PO SCH (14:46)
[2016-05-21] MEDS: FENOFIBRATE 160 MG TAB PO SCH (14:46)
[2016-05-21] MEDS: CALCIUM CARB-VIT D 500MG-200UN 1 EACH TAB PO SCH (14:46)
[2016-05-21] MEDS: SPIRONOLACTONE 25 MG TAB PO SCH (14:47)
[2016-05-21] MEDS: SERTRALINE 50 MG TAB PO SCH (14:47)
[2016-05-21] MEDS ORDERED: NITROGLYCERIN SL TABS 0.4 MG TAB SUBLINGUAL PRN (15:46)
--- NOTE | 2016-05-21 15:50 | P.HPIM ---
History of Present Illness H&P Date: 05/21/16 Chief Complaint: Belching This is a 71-year-old female patient of Dr. Azul with past history of coronary artery disease status post coronary artery bypass graft and ischemic cardiomyopathy with EF 30%status post AICD placement, diabetes mellitus type 2, gastroesophageal reflux disease, hyperlipidemia, hypertension, syncope episode, polio, peripheral artery disease. Patient states that she had sudden onset of belching for the past 3-4 days that is bothering her a lot. She denies having any diarrhea, blood in her stools. She states she vomited once after she took medications but has not been vomiting regularly. She denies any weight loss. She complains of pain in her left shoulder and left groin. She states her last colonoscopy was 10 years ago without any abnormal findings. She complains of abdominal bloating. She is passing flatus. She has some left lower quadrant pain. The belching does not seem to be related to food that happens all day long. Patient was placed in the observation unit and consult placed with cardiology for chest pain. Cardiology has seen her and recommended GI consult. Echocardiogram was ordered. Consult with Dr. Lopez added and CT of the abdomen and pelvis with contrast ordered. She is scheduled for EGD tomorrow. Temperature max is 100.7. No leukocytosis. Hemoglobin 10.0 hemoglobin A1c 6.4.. Troponin 0.0-1. Triglycerides 1:30, cholesterol 114, LDL 57, HDL 31. Chest x-ray showed no acute process. Abdominal film shows no acute abnormalities. Echocardiogram reveals moderate mitral regurgitation, mild tricuspid regurgitation, mild concentric left ventricular hypertrophy, EF 30-35%. Review of Systems All systems: negative Constitutional: Denies chills, Denies fever Eyes: denies blurred vision, denies pain Ears, nose, mouth and throat: Denies headache, Denies sore throat Cardiovascular: Reports chest pain, Denies shortness of breath Respiratory: Denies cough Gastrointestinal: Reports abdominal pain, Reports belching, Reports bloating, Reports loss of appetite, Denies diarrhea, Denies nausea, Denies vomiting Genitourinary: Denies dysuria, Denies hematuria Musculoskeletal: Denies myalgias Integumentary: Denies pruritus, Denies rash Neurological: Denies numbness, Denies weakness Psychiatric: Denies anxiety, Denies depression Endocrine: Denies fatigue, Denies weight change Past Medical History Past Medical History: Coronary Artery Disease (CAD), Chest Pain / Angina, Diabetes Mellitus, GERD/Reflux, Hyperlipidemia, Hypertension, Myocardial Infarction ([place]), Osteoarthritis (OA), Syncope Additional Past Medical History / Comment(s): POLIO, ISCHEMIC CARDIOMYOPATHY EF 30%, PAD, ARRYTHMIA, SEE H&P Last Myocardial Infarction Date:: 2012 History of Any Multi-Drug Resistant Organisms: None Reported Past Surgical History: Appendectomy, Cholecystectomy, Coronary Bypass/CABG, Heart Catheterization, Heart Catheterization With Stent, Hysterectomy Additional Past Surgical History / Comment(s): joanna carotid endarderectomies, ovarian cyst, STENT LT SUBCLAVIAN - TOTAL 4 STENTS 1. Past Anesthesia/Blood Transfusion Reactions: No Reported Reaction Date of Last Stent Placement:: 11/2014 Type of Cardiac Device: AICD Past Psychological History: Anxiety Additional Psychological History / Comment(s): pt. states she has a history of anxiety and it is controlled with Zoloft Smoking Status: Never smoker Past Alcohol Use History: None Reported Past Drug Use History: None Reported - Past Family History Father Family Medical History: Cancer Additional Family Medical History / Comment(s): pt. states her father had throat cancer Mother Family Medical History: Coronary Artery Disease (CAD), Hyperlipidemia, Hypertension Additional Family Medical History / Comment(s): CABG Medications and Allergies Home Medications Medication Instructions Recorded Confirmed Type Atorvastatin [Lipitor] 80 mg PO DAILY 08/08/14 05/20/16 History Calcium Carbonate/Vitamin D3 2 tab PO DAILY 08/08/14 05/20/16 History [Calcium 600-Vit D3 400 Tablet] Fenofibrate Nanocrystallized 145 mg PO DAILY 08/08/14 05/20/16 History [Tricor] Insulin Glargine [Lantus] 50 unit SQ HS 08/08/14 05/20/16 History Insulin Glulisine [Apidra] See Protocol SQ ACHS PRN 08/08/14 05/20/16 History Nitroglycerin Sl Tabs [Nitrostat] 0.4 mg SUBLINGUAL Q5M PRN 08/08/14 05/20/16 History Sertraline [Zoloft] 50 mg PO DAILY 08/08/14 05/20/16 History Isosorbide Mononitrate ER [Imdur] 60 mg PO DAILY 11/14/14 05/20/16 History Clopidogrel [Plavix] 75 mg PO HS 11/22/14 05/20/16 History Lansoprazole [Prevacid] 30 mg PO DAILY 11/22/14 05/20/16 History Aspirin EC [Ecotrin] 325 mg PO DAILY 05/20/16 05/20/16 History Carvedilol [Coreg] 25 mg PO BID 05/20/16 05/20/16 History Allergies Allergy/AdvReac Type Severity Reaction Status Date / Time adhesive Allergy Itching Verified 05/20/16 14:03 codeine Allergy Hallucinati Verified 05/20/16 14:03 ons dipyridamole Allergy heart Verified 05/20/16 14:03 [From Persantine] stopped metformin AdvReac Unknown Verified 05/20/16 14:03 Physical Exam Vitals: Vital Signs Temp Pulse Pulse Resp BP BP Pulse Ox 05/21/16 11:41 99.1 F 86 16 97/50 96 05/21/16 08:00 82 16 05/21/16 07:34 100.7 F H 82 16 133/52 95 05/21/16 04:00 100.1 F H 82 18 104/48 98 05/21/16 00:00 100 F H 84 18 120/50 94 L 05/20/16 20:00 84 16 05/20/16 19:54 98.2 F 84 16 151/61 97 05/20/16 19:05 18 05/20/16 17:14 92 20 132/62 97 05/20/16 16:39 99.0 F 85 16 158/61 97 Intake and Output 05/20/16 05/21/16 05/21/16 22:59 06:59 14:59 Intake Total 222 645.192 Balance 222 645.192 Intake: IV 463 0.9 NS @ KVO 240 Heparin Sodium,Porcine/ 223 D5w Pmx 25,000 unit In Dextrose/Water 1 500ml. bag @ 12 UNITS/KG/HR 16. 32 mls/hr IV .Q24H NOE Rx #:[id number] Intake, IV Titration 132.192 Amount Heparin Sodium,Porcine/ 132.192 D5w Pmx 25,000 unit In Dextrose/Water 1 500ml. bag @ 12 UNITS/KG/HR 16. 32 mls/hr IV .Q24H NOE Rx #:[id number] Oral 222 50 Other: Voiding Method Toilet Toilet Toilet # Voids 1 1 Weight 68.039 kg Gen: This is a 71-year-old female. She is sitting up in bed and appears to be somewhat uncomfortable due to constant belching. HEENT: Head is atraumatic, normocephalic. Pupils equal, round. Sclerae is anicteric. NECK: Supple. No JVD. No lymphadenopathy. No thyromegaly. LUNGS: Clear to auscultation. No wheezes or rhonchi. No intercostal retractions. HEART: Regular rate and rhythm. Systolic murmur. ABDOMEN: Soft. Distended. Bowel sounds are present. No masses. Mild tenderness to the left lower quadrant. EXTREMITIES: No pedal edema. No calf tenderness. NEUROLOGICAL: Patient is awake, alert and oriented x3. Cranial nerves 2 through 12 are grossly intact. Results CBC & Chem 7: 05/21/16 07:20 05/21/16 07:20 Labs: Abnormal Lab Results - Last 24 Hours (Table) 05/20/16 05/20/16 05/20/16 Range/Units 17:09 19:45 21:17 RBC (3.80-5.40) m/uL Hgb (11.4-16.0) gm/dL Hct (34.0-46.0) % Plt Count (150-450) k/uL APTT (22.0-30.0) sec BUN (7-17) mg/dL POC Glucose (mg/dL) 294 H 335 H (75-99) mg/dL Total Creatine Kinase 27 L (30-135) U/L HDL Cholesterol (40-60) mg/dL 05/20/16 05/21/16 05/21/16 Range/Units 23:30 07:20 07:20 RBC 3.43 L (3.80-5.40) m/uL Hgb 10.0 L D (11.4-16.0) gm/dL Hct 29.6 L (34.0-46.0) % Plt Count 118 L (150-450) k/uL APTT 30.9 H (22.0-30.0) sec BUN 20 H (7-17) mg/dL POC Glucose (mg/dL) (75-99) mg/dL Total Creatine Kinase (30-135) U/L HDL Cholesterol 31 L (40-60) mg/dL 05/21/16 Range/Units 07:20 RBC (3.80-5.40) m/uL Hgb (11.4-16.0) gm/dL Hct (34.0-46.0) % Plt Count (150-450) k/uL APTT 49.6 H (22.0-30.0) sec BUN (7-17) mg/dL POC Glucose (mg/dL) (75-99) mg/dL Total Creatine Kinase (30-135) U/L HDL Cholesterol (40-60) mg/dL Thrombosis Risk Factor Assmnt - DVT/VTE Prophylaxis DVT/VTE Prophylaxis: Pharmacologic Prophylaxis ordered - Choose All That Apply Any of the Below Risk Factors Present?: Yes Each Factor Represents 1 point: Obesity (BMI >25) Other Risk Factors: Yes Each Risk Factor Represents 2 Points: Age 61-74 years Other congenital or acquired thrombophilia - If yes, enter type in comment: No Thrombosis Risk Factor Assessment Total Risk Factor Score: 3 Thrombosis Risk Factor Assessment Level: Moderate Risk Assessment and Plan Plan: 1. Severe eructation. Consult with Dr. Lopez in place with plan for EGD tomorrow. 2. Chest pain most likely due to irritation. Cardiology consult is appreciated. Echocardiogram as above. 3. Severe ischemic cardiomyopathy, stable. Patient is normally on Imdur 60 mg daily, TriCor 45 mg daily, Plavix and aspirin, Coreg 25 mg twice daily, Lipitor. 4. Severe PAD: Patient had subclavian artery repair recently and stent placement and had carotid surgery in the past. 5. Diabetes mellitus type II, insulin requiring. Continue Humalog scale before meals and at bedtime, Lantus 15 units at bedtime. 6. Hypertension. Continue lisinopril 10 mg daily, Coreg 25 mg twice daily. 7. Hyperlipidemia. Continue TriCor 145 mg daily and Lipitor 80 mg daily. 8. Severe GERD. Continue Protonix 40 mg IV push daily 9. Depression, recurrent. Continue Zoloft 50 mg daily. Discharge plan: To be determined most likely return home. Patient placed in the observation unit. Impression and plan of care have been directed as dictated by the signing physician. Edie Martinez nurse practitioner acting as scribe for signing physician. Time with Patient: Greater than 30
[2016-05-21] MEDS ORDERED: ACETAMINOPHEN TAB 325 MG TAB PO PRN (16:10)
[2016-05-21 16:21] LABS: Glucose,Whole Blood 108 mg/dL (75-99)
--- NOTE | 2016-05-21 16:37 | CT ---
EXAMINATION TYPE: CT abdomen pelvis w con DATE OF EXAM: 05/21/2016 2:34 PM COMPARISON: NONE INDICATION: Patient having left sided pain for past 2-3 days DLP: 592.9 mGycm, Automated exposure control for dose reduction was used. CONTRAST: 100 mL of Omnipaque 300. Study performed with Oral Contrast TECHNIQUE: Axial images were obtained from above the diaphragm to the pubic rami in the axial plane a t 5 mm thick sections. Reconstructed images are reviewed on the computer in the coronal plane. FINDINGS: Limited CT sections are obtained the lung bases. The lung bases are clear. CT ABDOMEN: Liver: Normal Spleen: Normal Pancreas: Normal Adrenal glands: The adrenal glands are normal. Gallbladder: Normal Kidneys: No masses are evident. No hydronephrosis is present. No cysts are present. Aorta: Vascular calcification is within the aorta. Inferior vena cava: Normal. CT PELVIS: Loops of bowel within the abdomen and pelvis are normal. There are loops of bowel which are incom pletely distended or lack oral contrast limiting their evaluation. Appendix: Normal as visualized. Urinary bladder: Normal. Genitourinary structures: Uterus is absent. Adnexal regions are clear. Osseous structures: No suspicious lytic or sclerotic lesions. IMPRESSIONS: 1. Unremarkable CT abdomen and pelvis.
[2016-05-21] MEDS: MAG HYDROX/AL HYDROX/SIMETH 30 ML CUP PO PRN (17:51)
[2016-05-21] MEDS ORDERED: LIDOCAINE 1% 20 ML VIAL (10MG/ML) FOR IV START INTRADERMA PRN (18:27)
[2016-05-21] MEDS ORDERED: LACTATED RINGERS 1,000 ML IV SCH (18:30)
[2016-05-21 20:56] LABS: Glucose,Whole Blood 151 mg/dL (75-99)
[2016-05-21] MEDS: INSULIN GLARGINE 100 UNIT/ML 10 ML VIAL SQ SCH (22:18)
[2016-05-22] MEDS: CLOPIDOGREL 75 MG TAB PO SCH (02:50)
[2016-05-22] MEDS: NITROGLYCERIN OINT 1 INCH/GM PACKET TOPICAL SCH ×4 (02:51→17:17)
[2016-05-22 07:14] LABS: Glucose,Whole Blood 182 mg/dL (75-99)
[2016-05-22 08:09] VITALS: RESP 18
[2016-05-22] MEDS: INSULIN LISPRO (humaLOG) 300 UNIT/3 ML VIAL SQ SCH ×3 (08:47→17:21)
[2016-05-22] MEDS: FENOFIBRATE 160 MG TAB PO SCH (08:51)
[2016-05-22] MEDS: CARVEDILOL 12.5 MG TAB PO SCH ×2 (08:51→17:46)
[2016-05-22] MEDS: PANTOPRAZOLE 40 MG/10 ML VIAL IVP SCH (08:51)
[2016-05-22] MEDS: SERTRALINE 50 MG TAB PO SCH (08:51)
[2016-05-22] MEDS: ATORVASTATIN 80 MG TAB PO SCH (08:52)
[2016-05-22] MEDS: CALCIUM CARB-VIT D 500MG-200UN 1 EACH TAB PO SCH (08:52)
[2016-05-22] MEDS ORDERED: PROPOFOL 10 MG/ML 20 ML VIAL IV ONE (10:54)
[2016-05-22] MEDS ORDERED: LIDOCAINE 1% INJ 10MG/ML (20 ML MDV) ONE (10:54)
[2016-05-22] MEDS ORDERED: IV FLUID CONTINUATION 1,000 ML IV ONE ×2 (10:56)
--- NOTE | 2016-05-22 11:16 | P.PCN ---
Date of Procedure: 05/22/16 Procedure(s) Performed: BRIEF HISTORY: Patient is a 71-year-old, pleasant, white female, admitted to the hospital with atypical chest pain, abdominal pain, excessive belching for the last 3-4 days duration. She had CT of the abdomen and pelvis done yesterday was unremarkable. Because of the symptoms she is scheduled for an upper endoscopy to evaluate further. PROCEDURE PERFORMED: Esophagogastroduodenoscopy with biopsy. PREOPERATIVE DIAGNOSIS: Abdominal pain, excessive belching and atypical chest pain. IV sedation per anesthesia. PROCEDURE: After informed consent was obtained, the patient was brought into the endoscopy unit. IV conscious sedation was administered by Anesthesia under continuous monitoring. Initially the Olympus GIF-140 video endoscope was inserted into the mouth. Esophagus intubated without any difficulty. It was gradually advanced into the stomach and duodenum and carefully examined. The bulb and the second part of the duodenum appeared normal. The scope at this time was withdrawn to the stomach, adequately insufflated with air, and upon careful examination, mucosa of the antrum, had mild mottling of the mucosa and biopsies were done from this area. The body, cardia and the fundus appeared normal. The scope was then withdrawn into the esophagus. Small hiatal hernia noted. The GE junction was located at 36 cm from the incisors. The esophagus appeared normal. There were no erosions or ulcerations seen and the patient tolerated the procedure well. IMPRESSION: 1. Mild antral gastritis. 2. Small hiatal hernia, no evidence of esophagitis or Lee's esophagus. RECOMMENDATIONS: The findings of this examination were discussed with the patient . She was advised to follow with the biopsy results. She can continue with Protonix 40 mg daily.
[2016-05-22 12:09] LABS: Glucose,Whole Blood 179 mg/dL (75-99)
[2016-05-22] MEDS: LISINOPRIL 10 MG TAB PO SCH (12:09)
[2016-05-22] MEDS: SPIRONOLACTONE 25 MG TAB PO SCH (12:12)
[2016-05-22 12:19] VITALS: BP 101/49; PULSE 81; TEMP 98.2
[2016-05-22] MEDS: ASPIRIN 325 MG TAB PO SCH (13:05)
[2016-05-22] MEDS ORDERED: LOPERAMIDE 2 MG CAP PO STA (13:53)
[2016-05-22 17:18] LABS: Glucose,Whole Blood 215 mg/dL (75-99)
--- NOTE | 2016-05-23 10:21 | P.DS ---
Providers Date of admission: 05/20/16 16:17 Expected date of discharge: 05/22/16 Attending physician: Adriana Lewis Consults: 05/21/16 11:44 Consult Physician Urgent Consulting Provider: Matt Dixon Consult Reason/Comments: Belching,abdomen distention,nausea,fever Do you want consulting provider notified?: Yes Primary care physician: Vladimir Azul Hospital Course: This is a 71-year-old female patient of Dr. Azul with past history of coronary artery disease status post coronary artery bypass graft and ischemic cardiomyopathy with EF 30%status post AICD placement, diabetes mellitus type 2, gastroesophageal reflux disease, hyperlipidemia, hypertension, syncope episode, polio, peripheral artery disease. Patient states that she had sudden onset of belching for the past 3-4 days that is bothering her a lot. She denies having any diarrhea, blood in her stools. She states she vomited once after she took medications but has not been vomiting regularly. She denies any weight loss. She complains of pain in her left shoulder and left groin. She states her last colonoscopy was 10 years ago without any abnormal findings. She complains of abdominal bloating. She is passing flatus. She has some left lower quadrant pain. The belching does not seem to be related to food that happens all day long. Patient was placed in the observation unit and consult placed with cardiology for chest pain. Cardiology has seen her and recommended GI consult. Echocardiogram was ordered. Consult with Dr. Lopez added and CT of the abdomen and pelvis with contrast ordered. She is scheduled for EGD tomorrow. Temperature max is 100.7. No leukocytosis. Hemoglobin 10.0 hemoglobin A1c 6.4.. Troponin 0.0-1. Triglycerides 1:30, cholesterol 114, LDL 57, HDL 31. Chest x-ray showed no acute process. Abdominal film shows no acute abnormalities. Echocardiogram reveals moderate mitral regurgitation, mild tricuspid regurgitation, mild concentric left ventricular hypertrophy, EF 30-35%. Tatian by Dr. Lopez and underwent EGD that showed mild antral gastritis and small hiatal hernia with no evidence of esophagitis or Lee's esophagus. Recommendations for 4 Protonix 40 mg daily. Patient did have 4 episodes of diarrhea following the EGD for which she was given Imodium with improvement. Patient was discharged home in stable condition. Belching did improve but continued to be frequent. Discharge diagnoses: 1. Severe eructation. 2. Chest pain most likely due to eructation. 3. Severe ischemic cardiomyopathy, stable. 4. Severe PAD: Patient had subclavian artery repair and stent placement and had carotid surgery in the past. 5. Diabetes mellitus type II, insulin requiring. 6. Hypertension. 7. Hyperlipidemia. 8. Severe GERD. 9. Depression, recurrent. Discharge plan: return home. Impression and plan of care have been directed as dictated by the signing physician. Edie Martinez nurse practitioner acting as scribe for signing physician. Patient Condition at Discharge: Good Plan - Discharge Summary New Discharge Prescriptions: Carvedilol [Coreg] 25 mg PO BID #60 tablet Discharge Medication List Atorvastatin [Lipitor] 80 mg PO DAILY 08/08/14 [History] Calcium Carbonate/Vitamin D3 [Calcium 600-Vit D3 400 Tablet] 2 tab PO DAILY [History] Fenofibrate Nanocrystallized [Tricor] 145 mg PO DAILY 08/08/14 [History] Insulin Glargine [Lantus] 50 unit SQ HS 08/08/14 [History] Insulin Glulisine [Apidra] See Protocol SQ ACHS PRN 08/08/14 [History] Nitroglycerin Sl Tabs [Nitrostat] 0.4 mg SUBLINGUAL Q5M PRN 08/08/14 [History] Sertraline [Zoloft] 50 mg PO DAILY 08/08/14 [History] Lisinopril [Zestril] 10 mg PO DAILY #30 tab 08/10/14 [Rx] Spironolactone [Aldactone] 25 mg PO DAILY #30 tab 08/10/14 [Rx] Isosorbide Mononitrate ER [Imdur] 60 mg PO DAILY 11/14/14 [History] Clopidogrel [Plavix] 75 mg PO HS 11/22/14 [History] Aspirin EC [Ecotrin] 325 mg PO DAILY 05/20/16 [History] Carvedilol [Coreg] 25 mg PO BID #60 tablet 05/22/16 [Rx] Pantoprazole [Protonix] 0 mg PO DAILY #30 tablet. 05/22/16 [Rx] Follow up Appointment(s)/Referral(s): Vladimir Azul MD [Primary Care Provider] - 05/29/16 2:15 pm () Glenny Oro MD [STAFF PHYSICIAN] - 2 Weeks (Appointment made for at3:30pm.) Preethi Carpio MD [STAFF PHYSICIAN] - 1 Week (keep appointment for at 3:30pm.) Patient Instructions/Handouts: Chest Pain (DC) Discharge Disposition: HOME SELF-CARE
== END 2016-05-22 17:50 | disposition home or self-care (01) ==
LOC: EC 13:05 → 3OBS 16:17
PROVIDERS: ADMIT Internal Medicine; ATTEND Internal Medicine
DX: K29.50 Unspecified chronic gastritis without bleeding (principal); R07.89 Other chest pain; I25.5 Ischemic cardiomyopathy; I10 Essential (primary) hypertension; I73.9 Peripheral vascular disease, unspecified; E78.5 Hyperlipidemia, unspecified; K44.9 Diaphragmatic hernia without obstruction or gangrene; R19.7 Diarrhea, unspecified; E11.9 Type 2 diabetes mellitus without complications; K21.9 Gastro-esophageal reflux disease without esophagitis; F32.9 Major depressive disorder, single episode, unspecified; I95.9 Hypotension, unspecified; F41.9 Anxiety disorder, unspecified; M19.90 Unspecified osteoarthritis, unspecified site; I25.2 Old myocardial infarction; I25.10 Atherosclerotic heart disease of native coronary artery without angina pectoris; I08.1 Rheumatic disorders of both mitral and tricuspid valves; Z95.1 Presence of aortocoronary bypass graft; Z95.5 Presence of coronary angioplasty implant and graft; Z95.810 Presence of automatic (implantable) cardiac defibrillator; Z86.12 Personal history of poliomyelitis; Z79.4 Long term (current) use of insulin; Z79.02 Long term (current) use of antithrombotics/antiplatelets; Z79.82 Long term (current) use of aspirin; Z79.899 Other long term (current) drug therapy; Z88.5 Allergy status to narcotic agent; Z82.49 Family history of ischemic heart disease and other diseases of the circulatory system; Z80.8 Family history of malignant neoplasm of other organs or systems
CPT/HCPCS: 99291 ×2; 96365 ×2; 96367 ×2; 96376 ×2; 96361 ×2; 36415; 93005; 93306; 85379; 88305; 83880; 80061; 80053; 80048; 82150; 83036; 82550 ×2; 82553 ×2; 83690; 83735 ×2; 84484 ×2; 85025 ×2; 85610; 85730 ×2; 88342; 71020; 74000; 74177; 43239; G0378 ×3; J1644 ×3; J2405 ×2; J2001; J3475; Q9967; J2704; C9113 ×3; 96366; 96375

== ENCOUNTER 2016-08-21 14:37 | Emergency (ER) | payer MEDICARE, OTHER ==
[2016-08-21 14:48] VITALS: RESP 18
[2016-08-21] MEDS ORDERED: SODIUM CHLORIDE 0.9% 500 ML IV ONE (15:16)
--- NOTE | 2016-08-21 15:25 | ED ---
General Adult HPI - General Chief complaint: Extremity Problem,Nontraumatic Stated complaint: NUMBNESS AND TINGLING, RT LEG Time Seen by Provider: 08/21/16 14:54 Source: patient, family, EMS, RN notes reviewed, old records reviewed Mode of arrival: EMS Limitations: no limitations - History of Present Illness Initial comments: Chief complaint and history of present illness this is a 71-year-old female here with her . Patient reports that around 12:30 noon today she had difficulty getting out of her chair because she felt numb and tingling to her right leg. She reports she has this happen on occasion every night she has numbness tingling to her right foot. She does have a past history of polio that affected the right leg. Patient was able to ambulate with the use of holding onto furniture to the bathroom where she had a bowel movement. At that time she said urine and stool Hemoccult on their own. But now she has control over sphincters. Denies any headache or any other problems - Related Data Home Medications Medication Instructions Recorded Confirmed Atorvastatin [Lipitor] 80 mg PO DAILY 08/08/14 08/21/16 Calcium Carbonate/Vitamin D3 2 tab PO DAILY 08/08/14 08/21/16 [Calcium 600-Vit D3 400 Tablet] Fenofibrate Nanocrystallized 145 mg PO DAILY 08/08/14 08/21/16 [Tricor] Insulin Glargine [Lantus] 50 unit SQ HS 08/08/14 08/21/16 Insulin Glulisine [Apidra] See Protocol SQ ACHS PRN 08/08/14 08/21/16 Nitroglycerin Sl Tabs [Nitrostat] 0.4 mg SUBLINGUAL Q5M PRN 08/08/14 08/21/16 Sertraline [Zoloft] 50 mg PO DAILY 08/08/14 08/21/16 Isosorbide Mononitrate ER [Imdur] 60 mg PO DAILY 11/14/14 08/21/16 Clopidogrel [Plavix] 75 mg PO HS 11/22/14 08/21/16 Aspirin EC [Ecotrin] 325 mg PO DAILY 05/20/16 08/21/16 Pantoprazole [Protonix] 40 mg PO DAILY 08/21/16 08/21/16 Previous Rx's Medication Instructions Recorded Lisinopril [Zestril] 10 mg PO DAILY #30 tab 08/10/14 Spironolactone [Aldactone] 25 mg PO DAILY #30 tab 08/10/14 Carvedilol [Coreg] 25 mg PO BID #60 tablet 05/22/16 Allergies Allergy/AdvReac Type Severity Reaction Status Date / Time adhesive Allergy Itching Verified 08/21/16 15:52 codeine Allergy Hallucinati Verified 08/21/16 15:52 ons dipyridamole Allergy heart Verified 08/21/16 15:52 [From Persantine] stopped latex AdvReac Rash/Hives Verified 08/21/16 15:52 metformin AdvReac Unknown Verified 08/21/16 15:52 Review of Systems ROS Statement: Those systems with pertinent positive or pertinent negative responses have been documented in the HPI. Review of systems no complaints of any headache or visual acuity changes no chest pain or shortness of breath no abdominal pain. No back pain. She describes chronic problems with her right leg because of previous polio. States she's had on-again off-again numbness tingling. All systems are reviewed. Past medical problems significant for coronary artery disease, insulin- dependent diabetes mellitus, GERD, hyperlipidemia, hypertension, previous PA, osteoarthritis, syncopal episodes, polio and ischemic peripheral vascular disease. Her surgeries include appendectomy, cholecystectomy,s graft, several heart catheterizations with 45 stents. Partial hysterectomy and bilateral carotid endarterectomy. She has ALLERGIES to adhesives, codeine, dipyridamole and metformin. Patient reports she does not smoke usually drink alcohol socially rarely. ROS Other: All systems not noted in ROS Statement are negative. Past Medical History Past Medical History: Coronary Artery Disease (CAD), Chest Pain / Angina, Diabetes Mellitus, GERD/Reflux, Hyperlipidemia, Hypertension, Myocardial Infarction (PA), Osteoarthritis (OA), Syncope Additional Past Medical History / Comment(s): POLIO, ISCHEMIC CARDIOMYOPATHY EF 30%, PAD, ARRYTHMIA, SEE H&P Last Myocardial Infarction Date:: 2012 History of Any Multi-Drug Resistant Organisms: None Reported Past Surgical History: Appendectomy, Cholecystectomy, Coronary Bypass/CABG, Heart Catheterization, Heart Catheterization With Stent, Hysterectomy Additional Past Surgical History / Comment(s): joanna carotid endarderectomies, ovarian cyst, STENT LT SUBCLAVIAN - TOTAL 4 STENTS 1. Past Anesthesia/Blood Transfusion Reactions: No Reported Reaction Date of Last Stent Placement:: 11/2014 Type of Cardiac Device: AICD Past Psychological History: Anxiety Additional Psychological History / Comment(s): pt. states she has a history of anxiety and it is controlled with Zoloft Smoking Status: Never smoker Past Alcohol Use History: None Reported Past Drug Use History: None Reported - Past Family History Father Family Medical History: Cancer Additional Family Medical History / Comment(s): pt. states her father had throat cancer Mother Family Medical History: Coronary Artery Disease (CAD), Hyperlipidemia, Hypertension Additional Family Medical History / Comment(s): CABG General Exam - General Exam Comments Initial Comments: General: The patient is awake and alert, in no distress, and does not appear acutely ill. Patient states the symptoms lasted approximately 90 minutes are gone now. She is able ambulate no known usual fashion and just the normal amount of numbness and tingling to her foot which she has almost every day. She denies having any chest pain or back pain. No nausea no vomiting. No injuries. Patient has not fallen. Vital signs show temperature 96.9 pulse 70 her story rate 18 pulse ox 97% room air blood pressure 97/44 Eye: Pupils are equal, , pupils equal reactive to light, extra-ocular movements are intact; there is normal conjunctiva bilaterally. No signs of icterus. Ears, nose, mouth and throat: There are moist mucous membranes and no oral lesions. Poor dentition. Neck: The neck is supple, no neck pain. Cardiovascular: There is a regular rate and rhythm. Faint systolic murmur, no rub or gallop is appreciated. Respiratory: Lungs are clear to auscultation, respirations are non-labored, breath sounds are equal. No wheezes, stridor, rales, or rhonchi. Gastrointestinal: Soft, non-distended, non-tender abdomen without masses or organomegaly noted. There is no rebound or guarding present. No CVA tenderness. Bowel sounds are unremarkable. Back: There is no tenderness to palpation in the midline. There is no obvious deformity. No rashes noted. Musculoskeletal: Normal ROM, no tenderness, There is no pedal edema. There is no calf tenderness or swelling. Sensation intact. Pulses equal bilaterally 2+. Patient's had polio affecting the right leg and states she's had on-again off-again numbness tingling especially to her feet at night. Earlier today she had weakness after sitting in a chair for half an hour, affect in the right leg which is since come back to normal. Neurological: Neurologically: Intact except for her complaint of some numbness and increased weakness to the right leg. Past history of polio. Cranial nerves II through XII intact. No drift in the upper extremities. Patient is able to hold the right leg up against gravity but with some movement as compared to the left, i.e. right leg weaker than the left which has been chronic problems since she had polio. Posterior tibial pulse palpable Skin: Skin is warm and dry and no rashes or lesions are noted. Patient does often pick it small lesions on her legs. No signs of cellulitis. Limitations: no limitations Course Vital Signs 08/21/16 14:44 Temperature 96.9 F L Pulse Rate 70 Respiratory 18 Rate Blood Pressure 97/44 O2 Sat by Pulse 97 Oximetry Medical Decision Making - Medical Decision Making Medical decision making; patient's white count 12.8 hemoglobin 11 hematocrit 34 , potassium 5.7. BUN 43 creatinine 1.14 GFR 47. Glucose 162 X-rays of the lumbosacral spine were done and reviewed by radiologist his final impression is; right L5 assimilation joint with the sacrum. 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 Leftward truncal shift could reflect muscle spasm. Advanced hypertrophic facet arthropathy mid to lower lumbar spine with grade 1 anterolisthesis at L3-L4 and L4-L5. Mild to moderate multilevel degenerative disc disease especially lower lumbar spine. Baastrop's disease lower lumbar spine. As read by Dr. Mcdonald Patient received IV fluids states she is feeling much better. States her leg is back to normal with no complaints of any loss of rectal or bladder control. Patient states she wants to go home and admission was offered but she states she is back to normal again. We did discuss dehydration and her current kidney function numbers. This with her family physician and discuss whether or not there are some medication that can be stopped if needed because of possible nephrotoxicity. - Lab Data Result diagrams: 08/21/16 15:45 08/21/16 15:45 Lab Results 08/21/16 08/21/16 Range/Units 15:45 15:45 WBC 12.8 H (3.8-10.6) k/uL RBC 4.08 (3.80-5.40) m/uL Hgb 11.5 (11.4-16.0) gm/dL Hct 34.1 (34.0-46.0) % MCV 83.5 (80.0-100.0) fL MCH 28.3 (25.0-35.0) pg MCHC 33.9 (31.0-37.0) g/dL RDW 15.2 (11.5-15.5) % Plt Count 211 (150-450) k/uL Neutrophils % 85 % Lymphocytes % 11 % Monocytes % 3 % Eosinophils % 1 % Basophils % 0 % Neutrophils # 10.9 H (1.3-7.7) k/uL Lymphocytes # 1.4 (1.0-4.8) k/uL Monocytes # 0.3 (0-1.0) k/uL Eosinophils # 0.2 (0-0.7) k/uL Basophils # 0.0 (0-0.2) k/uL Sodium 142 (137-145) mmol/L Potassium 5.7 H (3.5-5.1) mmol/L Chloride 106 (98-107) mmol/L Carbon Dioxide 22 (22-30) mmol/L Anion Gap 14 mmol/L BUN 43 H (7-17) mg/dL Creatinine 1.14 H (0.52-1.04) mg/dL Est GFR (MDRD) Af Amer 57 (>60 ml/min/1.73 sqM) Est GFR (MDRD) Non-Af 47 (>60 ml/min/1.73 sqM) Glucose 162 H (74-99) mg/dL Calcium 10.2 (8.4-10.2) mg/dL Total Bilirubin 0.7 (0.2-1.3) mg/dL AST 33 (14-36) U/L ALT 29 (9-52) U/L Alkaline Phosphatase 44 (38-126) U/L Total Protein 7.2 (6.3-8.2) g/dL Albumin 4.4 (3.5-5.0) g/dL Disposition Clinical Impression: Post-polio limb muscle weakness, Renal insufficiency, Dehydration Disposition: HOME SELF-CARE Condition: Fair Instructions: Dehydration (ED) Additional Instructions: Increase fluid intake. Follow-up with family physician and discuss medications and kidney function. Time of Disposition: 16:42
[2016-08-21] MEDS ORDERED: SODIUM CHLORIDE 0.9% 1,000 ML IV SCH (15:30)
[2016-08-21 15:54] LABS: Basophils % (A) 0 %; CH 28.3; CHCM 34.1; Eosinophils # (A) 0.2 k/uL (0-0.7); Eosinophils % (A) 1 %; HCT 34.1 % (34.0-46.0); HDW 2.99; HGB 11.5 gm/dL (11.4-16.0); Luc % (Auto) 1; Lymphocytes # (A) 1.4 k/uL (1.0-4.8); Lymphocytes % (A) 11 %; MCH 28.3 pg (25.0-35.0); MCHC 33.9 g/dL (31.0-37.0); MCV 83.5 fL (80.0-100.0); Mean Platelet Volume 8.4; Monocytes # (A) 0.3 k/uL (0-1.0); Monocytes % (A) 3 %; Neutrophils # (A) 10.9 k/uL (1.3-7.7); Neutrophils % (A) 85 %; RBC 4.08 m/uL (3.80-5.40); RDW 15.2 % (11.5-15.5); WBC 12.8 k/uL (3.8-10.6); WBC (Perox) 13.04
[2016-08-21 16:04] LABS: Calcium 10.2 mg/dL (8.4-10.2); Potassium 5.7 mmol/L (3.5-5.1); Total Bilirubin 0.7 mg/dL (0.2-1.3); Total Protein 7.2 g/dL (6.3-8.2)
--- NOTE | 2016-08-21 16:04 | XR ---
EXAMINATION TYPE: XR lumbosacral spine min 4V DATE OF EXAM: 08/21/2016 4:00 PM COMPARISON: NONE HISTORY: 71-year-old female with back pain radiating to the right leg TECHNIQUE: 5 views FINDINGS: Leftward truncal shift is noted. Vertebral body heights are preserved. There appears to be a right L5 assimilation joint with the ipsilateral sacroiliac. No pars interarticularis defect. Multilevel mild to moderate endplate spondylosis. There is hypertrophic facet arthropathy mid to lower lumbar spine with trace grade 1 anterolisthesis at L3-L4 and L4-L5. Mild to moderate degenerative disc height loss at L5-S1. Baastrup's disease lower lumbar spine. Dense atherosclerotic calcifications throughout the abdominal aorta. Cholecystectomy clips. IMPRESSION: 1. Right L5 assimilation joint with the sacrum. Findings can be a source of Bertolotti's syndrome. 2. Leftward truncal shift could reflect muscle spasm. 3. Advanced hypertrophic facet arthropathy mid to lower lumbar spine with grade 1 anterolisthesis at L3-L4 and L4-L5. 4. [id number] multilevel degenerative disc disease especially lower lumbar spine. 5. Baastrup's disease lower lumbar spine.
[2016-08-21 16:50] VITALS: BP 122/72; PULSE 89; TEMP 98.3
== END 2016-08-21 16:50 | disposition home or self-care (01) ==
LOC: EC 14:37
DX: M62.81 Muscle weakness (generalized) (principal); N28.9 Disorder of kidney and ureter, unspecified; E86.0 Dehydration; I25.10 Atherosclerotic heart disease of native coronary artery without angina pectoris; E11.9 Type 2 diabetes mellitus without complications; K21.9 Gastro-esophageal reflux disease without esophagitis; E78.5 Hyperlipidemia, unspecified; I10 Essential (primary) hypertension; I25.2 Old myocardial infarction; M19.90 Unspecified osteoarthritis, unspecified site; Z86.12 Personal history of poliomyelitis; F41.9 Anxiety disorder, unspecified; Z79.4 Long term (current) use of insulin; Z79.899 Other long term (current) drug therapy; Z79.82 Long term (current) use of aspirin; Z88.5 Allergy status to narcotic agent; Z91.040 Latex allergy status
CPT/HCPCS: 36415; 72110; 80053; 85025; 99284

== ENCOUNTER 2016-11-26 11:56 | Emergency (ER) | payer MEDICARE, OTHER ==
[2016-11-26] MEDS ORDERED: SODIUM CHLORIDE 0.9% 1,000 ML IV STA ×3 (12:01→15:47)
[2016-11-26 12:06] VITALS: RESP 18
[2016-11-26 12:08] LABS: Glucose,Whole Blood 219 mg/dL (75-99)
[2016-11-26 12:15] LABS: Basophils % (A) 0 %; CH 28.5; CHCM 34.6; Eosinophils # (A) 0.3 k/uL (0-0.7); Eosinophils % (A) 2 %; HCT 31.4 % (34.0-46.0); HDW 3.19; HGB 11.2 gm/dL (11.4-16.0); Luc % (Auto) 1; Lymphocytes # (A) 2.1 k/uL (1.0-4.8); Lymphocytes % (A) 19 %; MCH 29.6 pg (25.0-35.0); MCHC 35.6 g/dL (31.0-37.0); MCV 83.1 fL (80.0-100.0); Mean Platelet Volume 8.7; Monocytes # (A) 0.4 k/uL (0-1.0); Monocytes % (A) 4 %; Neutrophils # (A) 8.1 k/uL (1.3-7.7); Neutrophils % (A) 74 %; RBC 3.78 m/uL (3.80-5.40); RDW 14.3 % (11.5-15.5); WBC 11.1 k/uL (3.8-10.6); WBC (Perox) 10.62
--- NOTE | 2016-11-26 12:20 | ED ---
Extremity Problem HPI - General Chief complaint: Extremity Problem,Nontraumatic Stated complaint: Extremity Numbness Time Seen by Provider: 11/26/16 11:56 Source: patient, EMS, RN notes reviewed, old records reviewed Mode of arrival: EMS Limitations: no limitations - History of Present Illness Initial comments: This is a 70-year-old female with a history of postpolio syndrome chronic low back pain and numbness to her lower extremities who states she's had increased numbness over last day or so with frequent falls he fell several times yesterday and once this morning. She states she has numbness from her toes up to her low back. She denies any new trauma other than the falls. She did have urinary incontinence apparently this morning also. She states she had a previous similar episode earlier this year which should respond to fluids. She was noted per paramedics have a low blood pressure. / also she is insulin- dependent her glucose was 232 per paramedics. She denies any fevers chills sweats any fecal incontinence. She also complains some slurred speech MD Complaint: other - Related Data Home Medications Medication Instructions Recorded Confirmed Calcium Carbonate/Vitamin D3 1 tab PO BID 08/08/14 11/26/16 [Calcium 600-Vit D3 400 Tablet] Fenofibrate Nanocrystallized 145 mg PO DAILY 08/08/14 11/26/16 [Tricor] Insulin Glargine [Lantus] 51 unit SQ HS 08/08/14 11/26/16 Insulin Glulisine [Apidra] See Protocol SQ ACHS 08/08/14 11/26/16 Nitroglycerin Sl Tabs [Nitrostat] 0.4 mg SUBLINGUAL Q5M PRN 08/08/14 11/26/16 Sertraline [Zoloft] 150 mg PO HS 08/08/14 11/26/16 Isosorbide Mononitrate ER [Imdur] 60 mg PO DAILY 11/14/14 11/26/16 Clopidogrel [Plavix] 75 mg PO HS 11/22/14 11/26/16 Aspirin EC [Ecotrin] 325 mg PO DAILY 05/20/16 11/26/16 Pantoprazole [Protonix] 40 mg PO DAILY 08/21/16 11/26/16 Atorvastatin [Lipitor] 80 mg PO DAILY 11/26/16 11/26/16 Gabapentin [Neurontin] 300 mg PO BID 11/26/16 11/26/16 Multivitamins, Thera [Multivitamin 1 tab PO DAILY 11/26/16 11/26/16 (formulary)] Ubidecarenone [Co Q-10] 100 mg PO DAILY 11/26/16 11/26/16 Previous Rx's Medication Instructions Recorded Lisinopril [Zestril] 10 mg PO DAILY #30 tab 08/10/14 Spironolactone [Aldactone] 25 mg PO DAILY #30 tab 08/10/14 Magnesium 200 mg PO DAILY #14 tablet 11/26/16 Allergies Allergy/AdvReac Type Severity Reaction Status Date / Time adhesive Allergy Itching Verified 11/26/16 13:30 codeine Allergy Hallucinati Verified 11/26/16 13:30 ons dipyridamole Allergy heart Verified 11/26/16 13:30 [From Persantine] stopped latex AdvReac Rash/Hives Verified 11/26/16 13:30 metformin AdvReac Unknown Verified 11/26/16 13:30 Review of Systems ROS Statement: Those systems with pertinent positive or pertinent negative responses have been documented in the HPI. ROS Other: All systems not noted in ROS Statement are negative. Past Medical History Past Medical History: Coronary Artery Disease (CAD), Chest Pain / Angina, Diabetes Mellitus, GERD/Reflux, Hyperlipidemia, Hypertension, Myocardial Infarction (MT), Osteoarthritis (OA), Syncope Additional Past Medical History / Comment(s): POLIO, ISCHEMIC CARDIOMYOPATHY EF 30%, PAD, ARRYTHMIA, SEE H&P Last Myocardial Infarction Date:: 2012 History of Any Multi-Drug Resistant Organisms: None Reported Past Surgical History: Appendectomy, Cholecystectomy, Coronary Bypass/CABG, Heart Catheterization, Heart Catheterization With Stent, Hysterectomy Additional Past Surgical History / Comment(s): joanna carotid endarderectomies, ovarian cyst, STENT LT SUBCLAVIAN - TOTAL 4 STENTS 1. Past Anesthesia/Blood Transfusion Reactions: No Reported Reaction Date of Last Stent Placement:: 11/2014 Type of Cardiac Device: AICD Past Psychological History: Anxiety Smoking Status: Never smoker Past Alcohol Use History: None Reported Past Drug Use History: None Reported - Past Family History Father Family Medical History: Cancer Additional Family Medical History / Comment(s): pt. states her father had throat cancer Mother Family Medical History: Coronary Artery Disease (CAD), Hyperlipidemia, Hypertension Additional Family Medical History / Comment(s): CABG General Exam - General Exam Comments Initial Comments: This is a well-developed well-nourished awake alert oriented 3 female Limitations: no limitations, physical limitation General appearance: alert, in no apparent distress Head exam: Present: atraumatic, normocephalic, normal inspection Eye exam: Present: normal appearance, PERRL, EOMI. Absent: scleral icterus, conjunctival injection, periorbital swelling ENT exam: Present: mucous membranes dry Neck exam: Present: normal inspection. Absent: tenderness, meningismus, lymphadenopathy Respiratory exam: Present: normal lung sounds bilaterally. Absent: respiratory distress, wheezes, rales, rhonchi, stridor Cardiovascular Exam: Present: regular rate, normal rhythm, normal heart sounds. Absent: systolic murmur, diastolic murmur, rubs, gallop, clicks GI/Abdominal exam: Present: soft, normal bowel sounds. Absent: distended, tenderness, guarding, rebound, rigid Extremities exam: Present: full ROM, normal capillary refill, other (Patient states she has numbness to light touch on both extremities though she is able to feel touch to her lateral and medial aspects of her thighs and legs as well as her feet and toes. She does demonstrate multiple excoriations on both extremities). Absent: tenderness, pedal edema, joint swelling, calf tenderness Back exam: Present: normal inspection, tenderness (Tenderness over the mid to lower lumbar spine no step-off or crepitation this is the same area she has chronic pain) Neurological exam: Present: alert, oriented X3, CN II-XII intact, motor sensory deficit Psychiatric exam: Present: normal affect, normal mood Skin exam: Present: warm, dry, normal color. Absent: rash Course Vital Signs 11/26/16 11/26/16 11/26/16 11:56 12:54 13:16 Temperature 97.9 F 97.6 F Pulse Rate 67 93 69 Respiratory 18 18 18 Rate Blood Pressure 85/42 104/46 94/46 O2 Sat by Pulse 96 96 94 L Oximetry 11/26/16 11/26/16 11/26/16 14:06 14:39 15:48 Temperature Pulse Rate 69 74 70 Respiratory 18 18 18 Rate Blood Pressure 100/46 111/53 109/52 O2 Sat by Pulse 96 95 94 L Oximetry - Reevaluation(s) Reevaluation #1: 11/26/16 15:38 EKG showed normal sinus rhythm a 69 appear 200 QRS 118 QT since QTC of 442/473 old inferior changes nonspecific ST-T wave configuration. Medical Decision Making - Medical Decision Making I did qureshi ve several long discussions with the patient and the family who have agreed to take the patient home and follow up in the office to seek home care assistance. I did discuss the case with Dr. Barragan. The patient feels much better and improved and would like to go home. - Lab Data Result diagrams: 11/26/16 12:03 11/26/16 12:03 Lab Results 11/26/16 11/26/16 11/26/16 Range/Units 12:01 12:03 12:03 WBC 11.1 H (3.8-10.6) k/uL RBC 3.78 L (3.80-5.40) m/uL Hgb 11.2 L (11.4-16.0) gm/dL Hct 31.4 L (34.0-46.0) % MCV 83.1 (80.0-100.0) fL MCH 29.6 (25.0-35.0) pg MCHC 35.6 (31.0-37.0) g/dL RDW 14.3 (11.5-15.5) % Plt Count 184 (150-450) k/uL Neutrophils % 74 % Lymphocytes % 19 % Monocytes % 4 % Eosinophils % 2 % Basophils % 0 % Neutrophils # 8.1 H (1.3-7.7) k/uL Lymphocytes # 2.1 (1.0-4.8) k/uL Monocytes # 0.4 (0-1.0) k/uL Eosinophils # 0.3 (0-0.7) k/uL Basophils # 0.0 (0-0.2) k/uL Sodium (137-145) mmol/L Potassium (3.5-5.1) mmol/L Chloride (98-107) mmol/L Carbon Dioxide (22-30) mmol/L Anion Gap mmol/L BUN (7-17) mg/dL Creatinine (0.52-1.04) mg/dL Est GFR (MDRD) Af Amer (>60 ml/min/1.73 sqM) Est GFR (MDRD) Non-Af (>60 ml/min/1.73 sqM) Glucose (74-99) mg/dL POC Glucose (mg/dL) 219 H (75-99) mg/dL POC Glu Non Destructive Testing Inspector ID Ike Jackson Calcium (8.4-10.2) mg/dL Magnesium (1.6-2.3) mg/dL Total Bilirubin (0.2-1.3) mg/dL AST (14-36) U/L ALT (9-52) U/L Alkaline Phosphatase (38-126) U/L Total Creatine Kinase 40 (30-135) U/L CK-MB (CK-2) 0.7 (0.0-2.4) ng/mL CK-MB (CK-2) Rel Index 1.8 Total Protein (6.3-8.2) g/dL Albumin (3.5-5.0) g/dL Urine Color Urine Appearance (Clear) Urine pH (5.0-8.0) Ur Specific [place] (1.001-1.035) Urine Protein (Negative) Urine Glucose (UA) (Negative) Urine Ketones (Negative) Urine Blood (Negative) Urine Nitrite (Negative) Urine Bilirubin (Negative) Urine Urobilinogen (<2.0) mg/dL Ur Leukocyte Esterase (Negative) Urine RBC (0-5) /hpf Urine WBC (0-5) /hpf Ur Squamous Epith Cells (0-4) /hpf Hyaline Casts (0-2) /lpf Urine Mucus (None) /hpf 11/26/16 11/26/16 Range/Units 12:03 12:20 WBC (3.8-10.6) k/uL RBC (3.80-5.40) m/uL Hgb (11.4-16.0) gm/dL Hct (34.0-46.0) % MCV (80.0-100.0) fL MCH (25.0-35.0) pg MCHC (31.0-37.0) g/dL RDW (11.5-15.5) % Plt Count (150-450) k/uL Neutrophils % % Lymphocytes % % Monocytes % % Eosinophils % % Basophils % % Neutrophils # (1.3-7.7) k/uL Lymphocytes # (1.0-4.8) k/uL Monocytes # (0-1.0) k/uL Eosinophils # (0-0.7) k/uL Basophils # (0-0.2) k/uL Sodium 133 L (137-145) mmol/L Potassium 4.3 (3.5-5.1) mmol/L Chloride 99 (98-107) mmol/L Carbon Dioxide 19 L (22-30) mmol/L Anion Gap 15 mmol/L BUN 40 H (7-17) mg/dL Creatinine 1.83 H (0.52-1.04) mg/dL Est GFR (MDRD) Af Amer 33 (>60 ml/min/1.73 sqM) Est GFR (MDRD) Non-Af 27 (>60 ml/min/1.73 sqM) Glucose 208 H (74-99) mg/dL POC Glucose (mg/dL) (75-99) mg/dL POC Glu Non Destructive Testing Inspector ID Calcium 8.9 (8.4-10.2) mg/dL Magnesium 1.5 L (1.6-2.3) mg/dL Total Bilirubin 0.4 (0.2-1.3) mg/dL AST 20 (14-36) U/L ALT 13 (9-52) U/L Alkaline Phosphatase 52 (38-126) U/L Total Creatine Kinase (30-135) U/L CK-MB (CK-2) (0.0-2.4) ng/mL CK-MB (CK-2) Rel Index Total Protein 6.2 L (6.3-8.2) g/dL Albumin 3.6 (3.5-5.0) g/dL Urine Color Yellow Urine Appearance Cloudy H (Clear) Urine pH 5.0 (5.0-8.0) Ur Specific [place] 1.018 (1.001-1.035) Urine Protein Trace H (Negative) Urine Glucose (UA) Negative (Negative) Urine Ketones Negative (Negative) Urine Blood Negative (Negative) Urine Nitrite Negative (Negative) Urine Bilirubin Negative (Negative) Urine Urobilinogen 2.0 (<2.0) mg/dL Ur Leukocyte Esterase Trace H (Negative) Urine RBC 1 (0-5) /hpf Urine WBC 9 H (0-5) /hpf Ur Squamous Epith Cells 2 (0-4) /hpf Hyaline Casts 17 H (0-2) /lpf Urine Mucus Rare H (None) /hpf - EKG Data -: EKG Interpreted by Me (Sinus rhythm rate of 69 RI interval 200 QRS 118 daily since QTC of 442/473 ) - Radiology Data Radiology results: report reviewed, image reviewed (Review of the inaging reveals no acute findings.) Disposition Clinical Impression: Dehydration, Hypomagnesemia syndrome, Prerenal azotemia, Post-polio syndrome, Fall Disposition: HOME SELF-CARE Condition: Good Instructions: Dehydration (ED), Hypomagnesemia (ED), Fall Prevention (ED), Fall Prevention for Older Adults (ED) Prescriptions: Magnesium 200 mg PO DAILY #14 tablet Referrals: Vladimir Azul MD [Primary Care Provider] - 1-2 days
[2016-11-26 12:23] LABS: Calcium 8.9 mg/dL (8.4-10.2); Magnesium 1.5 mg/dL (1.6-2.3); Potassium 4.3 mmol/L (3.5-5.1); Total Bilirubin 0.4 mg/dL (0.2-1.3); Total Protein 6.2 g/dL (6.3-8.2)
[2016-11-26 12:33] LABS: Appearance,Urine Cloudy (Clear); Bilirubin,Urine Negative (Negative); Glucose,Urine (UA) Negative (Negative); Ketones,Urine Negative (Negative); Leukocyte Esterase,Urine Trace (Negative); Mucus,Urine Rare /hpf; Nitrite,Urine Negative (Negative); Particle Count 2123; Protein,Urine Trace (Negative); RBC,Urine 1 /hpf (0-5); Specific Gravity,Urine 1.018 (1.001-1.035); Squamous Epithelial Cell,Urine 2 /hpf (0-4); UA Billing (MACRO vs. MICRO) MICRO; WBC,Urine 9 /hpf (0-5)
[2016-11-26 12:45] LABS: Creatine Kinase MB 0.7 ng/mL (0.0-2.4)
--- NOTE | 2016-11-26 12:56 | CT ---
EXAMINATION TYPE: CT brain wo con DATE OF EXAM: 11/26/2016 COMPARISON: 12/16/2014 HISTORY: 71-year-old female with complaints of headache and bilateral pelvic and extremity numbness t o the toes. TECHNIQUE: Examination was done in axial plane without intravenous contrast. Coronal and sagittal r econstructions performed. CT DLP: 1058 mGycm Automated exposure control for dose reduction was used. FINDINGS: There is no evidence of acute intracranial hemorrhage, acute ischemic changes, mass, mass-effect, or extra-axial fluid collection. There is no effacement of cerebral sulci or basal subarachnoid cister ns. There is no hydrocephalus. There is no midline shift. Pearson-white matter distinction is preserv ed. There is mild generalized supratentorial volume loss and old area of encephalomalacia within the left occipital lobe. Paranasal sinuses and mastoid air cells well pneumatized. Orbits and globes are intact. IMPRESSION: No acute intracranial abnormality seen. Stable mild generalized atrophy and encephalomalacia in the l eft occipital lobe from prior vascular or traumatic insult.
--- NOTE | 2016-11-26 13:03 | CT ---
EXAMINATION TYPE: CT lumbar spine wo con DATE OF EXAM: 11/26/2016 COMPARISON: Lumbar spine x-ray August 21, 2016. CT abdomen and pelvis May 21, 2016 HISTORY: Patient complains of headache and bilateral pelvic and extremity numbness to the toes. CT DLP: 976 mGycm Automated exposure control for dose reduction was used. FINDINGS: There is transitional-type L6 vertebra which is sacralized on the right only. Abnormal unilateral art iculation L6 S1 level can cause symptoms of pain. Given above assumption 5 lumbar type vertebra ident ified. There is slight dextroconvex scoliotic positioning again seen. Vertebral body heights and disc space heights are fairly well-maintained. Spinal canal is grossly preserved. No large posterior disc herniations are present. No significant spurring is seen. Review of axial images shows T12-L1 through L2-L3 levels to appear within normal limits. Axial images at L3-L4 level show mild to moderate facet arthropathy and ligamentum flavum hypertrophy effacing posterior lateral thecal sac and mild broad disc bulge effacing anterior thecal sac on axia l image 39. Bilateral neural foramina are patent. Axial images at L4-L5 level shows severe facet arthropathy and ligamentum flavum hypertrophy with mod erate broad disc bulge. There is prominent spinal canal stenosis at this level on axial image 50. Thi s is not significantly changed from prior study. There is moderate to severe left and and mild to mod erate right-sided neural foraminal narrowing at this level identified. Axial images at L5-L6 level show advanced facet arthropathy. There is perhaps surgical change posteri ashia with partial spinous process resection. Clinical correlation advised. There is broad-based poste rior disc protrusion. There is spinal canal stenosis at this level near axial image 60. There is mode rate left-sided neural foraminal narrowing and mild right-sided neural foraminal narrowing at this le mary identified. Axial images at L6-S1 level show moderate facet arthropathy bilaterally. Spinal canal is preserved. Densely calcified severe atherosclerotic change of the aorta is redemonstrated extending into branch vessels. Significant central calcification is most prominent on axial image 33. IMPRESSION: MULTILEVEL DEGENERATIVE CHANGES IN LUMBAR SPINE DETAILED ABOVE WITH SPINAL CANAL STENOSIS NOTED AT L4-L5 AND TO GREATER DEGREE AT L3-L4 LEVELS. IN ADDITION THERE IS SEVERE ATHEROSCLEROTIC CALCIFICATI ON WITH SIGNIFICANT STENOSIS DIFFICULT TO EXCLUDE IN THE DISTAL ABDOMINAL AORTA. EITHER CHRONIC FINDI NG COULD ACCOUNT FOR PATIENT'S SYMPTOMS. NO SIGNIFICANT CHANGE FROM PRIOR CT NOTED.
[2016-11-26] MEDS ORDERED: MAGNESIUM SULFATE-D5W PMX 1 GM in DEXTROSE/WATER 1 100ML.BAG IVPB ONE (14:14)
[2016-11-26] MEDS ORDERED: SODIUM CHLORIDE 0.9% 500 ML IV STA (14:15)
[2016-11-26 17:42] VITALS: BP 113/79; PULSE 79; TEMP 97
== END 2016-11-26 17:35 | disposition home or self-care (01) ==
LOC: EC 11:56
DX: G14 Postpolio syndrome (principal); E83.42 Hypomagnesemia; E86.0 Dehydration; R32 Unspecified urinary incontinence; R29.6 Repeated falls; E78.5 Hyperlipidemia, unspecified; I10 Essential (primary) hypertension; E11.9 Type 2 diabetes mellitus without complications; I25.10 Atherosclerotic heart disease of native coronary artery without angina pectoris; K21.9 Gastro-esophageal reflux disease without esophagitis; M19.90 Unspecified osteoarthritis, unspecified site; F41.9 Anxiety disorder, unspecified; I25.2 Old myocardial infarction; Z79.02 Long term (current) use of antithrombotics/antiplatelets; Z79.4 Long term (current) use of insulin; Z79.82 Long term (current) use of aspirin; Z79.899 Other long term (current) drug therapy; Z88.5 Allergy status to narcotic agent; Z88.8 Allergy status to other drugs, medicaments and biological substances; Z91.040 Latex allergy status; Z91.09 Other allergy status, other than to drugs and biological substances; Z86.79 Personal history of other diseases of the circulatory system
CPT/HCPCS: 99285; 96365; 96361 ×4; 36415; 93005; 80053; 82550; 82553; 83735; 85025; 81001; 72131; 70450; J3475

== ENCOUNTER 2017-02-02 09:24 | Inpatient (IN) | payer MEDICARE, OTHER ==
[2017-02-02 09:44] LABS: Glucose,Whole Blood 312 mg/dL (75-99)
[2017-02-02] MEDS ORDERED: SODIUM CHLORIDE 0.9% 1,000 ML IV STA ×4 (09:45→14:04)
--- NOTE | 2017-02-02 09:47 | ED ---
Recheck HPI - General Chief Complaint: Recheck/Abnormal Lab/Rx Stated Complaint: Sugar is high Time Seen by Provider: 02/02/17 09:35 Source: patient, RN notes reviewed Mode of arrival: wheelchair Limitations: no limitations - History of Present Illness Initial Comments: This is a 70-year-old female who presents with complaints of not feeling well she initially we is had low blood pressure elevated glucose of glucose was 295 at home she has some nausea she states she's been on Keflex since the of this month for an ear infection she was cut down from 3 times a day to twice a day recently. Also she has had some other medication changes recently. She denies any cough or phlegm production rhinorrhea earaches dysuria or hematuria. She believes she drinks enough fluids. She's not sure where the infection is a she's being treated for. - Related Data Home Medications Medication Instructions Recorded Confirmed Calcium Carbonate/Vitamin D3 1 tab PO BID 08/08/14 02/02/17 [Calcium 600-Vit D3 400 Tablet] Insulin Glargine [Lantus] 51 unit SQ HS 08/08/14 02/02/17 Clopidogrel [Plavix] 75 mg PO DAILY 11/22/14 02/02/17 Atorvastatin [Lipitor] 40 mg PO BID 11/26/16 02/02/17 Ubidecarenone [Co Q-10] 100 mg PO DAILY 11/26/16 02/02/17 Aspirin [Adult Low Dose Aspirin EC] 81 mg PO DAILY 02/02/17 02/02/17 Carvedilol 25 mg PO DAILY 02/02/17 02/02/17 Cholecalciferol [Vitamin D3] 1,000 unit PO DAILY 02/02/17 02/02/17 Cilostazol [Pletal] 100 mg PO BID 02/02/17 02/02/17 DULoxetine HCL [Cymbalta] 60 mg PO DAILY 02/02/17 02/02/17 Lansoprazole [Prevacid] 30 mg PO DAILY 02/02/17 02/02/17 Previous Rx's Medication Instructions Recorded Ondansetron [Zofran ODT] 4 mg PO Q8HR #12 tab 02/02/17 Allergies Allergy/AdvReac Type Severity Reaction Status Date / Time adhesive Allergy Itching Verified 02/02/17 10:17 codeine Allergy Hallucinati Verified 02/02/17 10:17 ons dipyridamole Allergy heart Verified 02/02/17 10:17 [From Persantine] stopped latex AdvReac Rash/Hives Verified 02/02/17 10:17 metformin AdvReac Unknown Verified 02/02/17 10:17 Review of Systems ROS Statement: Those systems with pertinent positive or pertinent negative responses have been documented in the HPI. ROS Other: All systems not noted in ROS Statement are negative. Past Medical History Past Medical History: Coronary Artery Disease (CAD), Chest Pain / Angina, Diabetes Mellitus, GERD/Reflux, Hyperlipidemia, Hypertension, Myocardial Infarction (HI), Osteoarthritis (OA), Syncope Additional Past Medical History / Comment(s): POLIO, ISCHEMIC CARDIOMYOPATHY EF 30%, PAD, ARRYTHMIA, SEE H&P Last Myocardial Infarction Date:: 2012 History of Any Multi-Drug Resistant Organisms: None Reported Past Surgical History: Appendectomy, Cholecystectomy, Coronary Bypass/CABG, Heart Catheterization, Heart Catheterization With Stent, Hysterectomy Additional Past Surgical History / Comment(s): joanna carotid endarderectomies, ovarian cyst, STENT LT SUBCLAVIAN - TOTAL 4 STENTS 1. Past Anesthesia/Blood Transfusion Reactions: No Reported Reaction Date of Last Stent Placement:: 11/2014 Type of Cardiac Device: AICD Past Psychological History: Anxiety Smoking Status: Never smoker Past Alcohol Use History: None Reported Past Drug Use History: None Reported - Past Family History Father Family Medical History: Cancer Additional Family Medical History / Comment(s): pt. states her father had throat cancer Mother Family Medical History: Coronary Artery Disease (CAD), Hyperlipidemia, Hypertension Additional Family Medical History / Comment(s): CABG General Exam - General Exam Comments Initial Comments: This is a well-developed well-nourished awake alert oriented 3 female Limitations: no limitations General appearance: alert, in no apparent distress Head exam: Present: atraumatic, normocephalic, normal inspection Eye exam: Present: normal appearance, PERRL, EOMI. Absent: scleral icterus, conjunctival injection, periorbital swelling ENT exam: Present: mucous membranes dry Neck exam: Present: normal inspection. Absent: tenderness, meningismus, lymphadenopathy Respiratory exam: Present: normal lung sounds bilaterally. Absent: respiratory distress, wheezes, rales, rhonchi, stridor Cardiovascular Exam: Present: regular rate, normal rhythm, normal heart sounds. Absent: systolic murmur, diastolic murmur, rubs, gallop, clicks GI/Abdominal exam: Present: soft, normal bowel sounds. Absent: distended, tenderness, guarding, rebound, rigid Extremities exam: Present: normal inspection, full ROM, normal capillary refill. Absent: tenderness, pedal edema, joint swelling, calf tenderness Back exam: Present: normal inspection Neurological exam: Present: alert, oriented X3, CN II-XII intact Psychiatric exam: Present: normal affect, normal mood Skin exam: Present: warm, dry, intact, normal color. Absent: rash Course Vital Signs 02/02/17 02/02/17 09:30 12:19 Temperature 97.4 F L Pulse Rate 96 101 H Respiratory 20 16 Rate Blood Pressure 94/51 97/54 O2 Sat by Pulse 95 Oximetry Medical Decision Making - Medical Decision Making Patient is feeling much improved. Patient will be discharged she will get a prescription for Zofran. She is follow-up with her doctor return when necessary - Lab Data Result diagrams: 02/02/17 09:51 02/02/17 09:51 Lab Results 02/02/17 02/02/17 02/02/17 Range/Units 09:41 09:51 09:51 WBC (3.8-10.6) k/uL RBC (3.80-5.40) m/uL Hgb (11.4-16.0) gm/dL Hct (34.0-46.0) % MCV (80.0-100.0) fL MCH (25.0-35.0) pg MCHC (31.0-37.0) g/dL RDW (11.5-15.5) % Plt Count (150-450) k/uL Neutrophils % % Lymphocytes % % Monocytes % % Eosinophils % % Basophils % % Neutrophils # (1.3-7.7) k/uL Lymphocytes # (1.0-4.8) k/uL Monocytes # (0-1.0) k/uL Eosinophils # (0-0.7) k/uL Basophils # (0-0.2) k/uL Sodium 130 L (137-145) mmol/L Potassium 5.5 H (3.5-5.1) mmol/L Chloride 95 L (98-107) mmol/L Carbon Dioxide 22 (22-30) mmol/L Anion Gap 13 mmol/L BUN 32 H (7-17) mg/dL Creatinine 1.38 H (0.52-1.04) mg/dL Est GFR (MDRD) Af Amer 46 (>60 ml/min/1.73 sqM) Est GFR (MDRD) Non-Af 38 (>60 ml/min/1.73 sqM) Glucose 336 H (74-99) mg/dL POC Glucose (mg/dL) 312 H (75-99) mg/dL POC Glu Superintendent Pipelines ID Joseph Fields Calcium 11.7 H (8.4-10.2) mg/dL Magnesium 1.4 L (1.6-2.3) mg/dL Total Bilirubin 0.7 (0.2-1.3) mg/dL AST 25 (14-36) U/L ALT 30 (9-52) U/L Alkaline Phosphatase 57 (38-126) U/L Total Creatine Kinase 26 L (30-135) U/L CK-MB (CK-2) 0.8 (0.0-2.4) ng/mL CK-MB (CK-2) Rel Index 3.1 Troponin I 0.028 (0.000-0.034) ng/mL Total Protein 7.2 (6.3-8.2) g/dL Albumin 4.6 (3.5-5.0) g/dL Amylase 37 (30-110) U/L Lipase 160 (23-300) U/L Urine Color Urine Appearance (Clear) Urine pH (5.0-8.0) Ur Specific [place] (1.001-1.035) Urine Protein (Negative) Urine Glucose (UA) (Negative) Urine Ketones (Negative) Urine Blood (Negative) Urine Nitrite (Negative) Urine Bilirubin (Negative) Urine Urobilinogen (<2.0) mg/dL Ur Leukocyte Esterase (Negative) Acetone, Qual Negative (Negative) 02/02/17 02/02/17 Range/Units 09:51 09:51 WBC 10.5 (3.8-10.6) k/uL RBC 4.47 (3.80-5.40) m/uL Hgb 12.7 (11.4-16.0) gm/dL Hct 37.7 (34.0-46.0) % MCV 84.2 (80.0-100.0) fL MCH 28.5 (25.0-35.0) pg MCHC 33.8 (31.0-37.0) g/dL RDW 15.2 (11.5-15.5) % Plt Count 262 (150-450) k/uL Neutrophils % 72 % Lymphocytes % 19 % Monocytes % 4 % Eosinophils % 3 % Basophils % 0 % Neutrophils # 7.5 (1.3-7.7) k/uL Lymphocytes # 2.0 (1.0-4.8) k/uL Monocytes # 0.4 (0-1.0) k/uL Eosinophils # 0.3 (0-0.7) k/uL Basophils # 0.0 (0-0.2) k/uL Sodium (137-145) mmol/L Potassium (3.5-5.1) mmol/L Chloride (98-107) mmol/L Carbon Dioxide (22-30) mmol/L Anion Gap mmol/L BUN (7-17) mg/dL Creatinine (0.52-1.04) mg/dL Est GFR (MDRD) Af Amer (>60 ml/min/1.73 sqM) Est GFR (MDRD) Non-Af (>60 ml/min/1.73 sqM) Glucose (74-99) mg/dL POC Glucose (mg/dL) (75-99) mg/dL POC Glu Superintendent Pipelines ID Calcium (8.4-10.2) mg/dL Magnesium (1.6-2.3) mg/dL Total Bilirubin (0.2-1.3) mg/dL AST (14-36) U/L ALT (9-52) U/L Alkaline Phosphatase (38-126) U/L Total Creatine Kinase (30-135) U/L CK-MB (CK-2) (0.0-2.4) ng/mL CK-MB (CK-2) Rel Index Troponin I (0.000-0.034) ng/mL Total Protein (6.3-8.2) g/dL Albumin (3.5-5.0) g/dL Amylase (30-110) U/L Lipase (23-300) U/L Urine Color Yellow Urine Appearance Clear (Clear) Urine pH 5.5 (5.0-8.0) Ur Specific [place] 1.019 (1.001-1.035) Urine Protein Trace H (Negative) Urine Glucose (UA) 3+ H (Negative) Urine Ketones Negative (Negative) Urine Blood Negative (Negative) Urine Nitrite Negative (Negative) Urine Bilirubin Negative (Negative) Urine Urobilinogen 2.0 (<2.0) mg/dL Ur Leukocyte Esterase Negative (Negative) Acetone, Qual (Negative) - EKG Data -: EKG Interpreted by Me EKG shows normal: sinus rhythm (Sinus rhythm a rate 93. Interval 194 QRS 118 QT /QTC of 366/455 nonspecific anterior changes also nonspecific ST configuration.) - Radiology Data Radiology results: report reviewed (I did review the imaging and reports no acute findings.), image reviewed Disposition Clinical Impression: Uncontrolled diabetes mellitus, Dehydration, Hypotensive episode Disposition: HOME SELF-CARE Condition: Good Instructions: Type 1 Diabetes in Adults (ED), Type 2 Diabetes in Adults (ED), Dehydration (ED) Prescriptions: Ondansetron [Zofran ODT] 4 mg PO Q8HR #12 tab Referrals: Vladimir Azul MD [Primary Care Provider] - 1-2 days
[2017-02-02 10:15] LABS: Basophils % (A) 0 %; CH 29.8; CHCM 35.6; Eosinophils # (A) 0.3 k/uL (0-0.7); Eosinophils % (A) 3 %; HCT 37.7 % (34.0-46.0); HDW 2.88; HGB 12.7 gm/dL (11.4-16.0); Luc # (Auto) 0.19; Luc % (Auto) 2; Lymphocytes % (A) 19 %; MCH 28.5 pg (25.0-35.0); MCHC 33.8 g/dL (31.0-37.0); MCV 84.2 fL (80.0-100.0); Mean Platelet Volume 8.7; Monocytes # (A) 0.4 k/uL (0-1.0); Monocytes % (A) 4 %; Neutrophils # (A) 7.5 k/uL (1.3-7.7); Neutrophils % (A) 72 %; RBC 4.47 m/uL (3.80-5.40); RDW 15.2 % (11.5-15.5); WBC 10.5 k/uL (3.8-10.6); WBC (Perox) 11.06
[2017-02-02 10:23] LABS: Appearance,Urine Clear (Clear); Bilirubin,Urine Negative (Negative); Glucose,Urine (UA) 3+ (Negative); Ketones,Urine Negative (Negative); Leukocyte Esterase,Urine Negative (Negative); Nitrite,Urine Negative (Negative); PH, Urine 5.5 (5.0-8.0); Protein,Urine Trace (Negative); Specific Gravity,Urine 1.019 (1.001-1.035); UA Billing (MACRO vs. MICRO) CHEM
[2017-02-02 10:28] LABS: ALT 30 U/L (9-52); AST 25 U/L (14-36); Alkaline Phosphatase 57 U/L (38-126); Amylase 37 U/L (30-110); Anion Gap 13 mmol/L; Blood Urea Nitrogen 32 mg/dL (7-17); Calcium 11.7 mg/dL (8.4-10.2); Carbon Dioxide 22 mmol/L (22-30); Chloride 95 mmol/L (98-107); Glucose 336 mg/dL (74-99); Magnesium 1.4 mg/dL (1.6-2.3); Non-African American GFR(MDRD) 38 (>60 ml/min/1.73 sqM); Potassium 5.5 mmol/L (3.5-5.1); Sodium 130 mmol/L (137-145); Total Bilirubin 0.7 mg/dL (0.2-1.3); Total Protein 7.2 g/dL (6.3-8.2)
--- NOTE | 2017-02-02 10:46 | XR ---
EXAMINATION TYPE: XR chest 2V DATE OF EXAM: 02/02/2017 HISTORY: cough. REFERENCE: Previous study dated 05/20/2016. FINDINGS: There has been a midline sternotomy. There is a unipolar pacemaker place on the left. The heart is upper limits of normal in size. The lungs are clear. Pleural spaces are clear. IMPRESSION: BORDERLINE CARDIOMEGALY.
[2017-02-02 10:48] LABS: Creatine Kinase MB 0.8 ng/mL (0.0-2.4); Troponin I 0.028 ng/mL (0.000-0.034)
[2017-02-02] MEDS ORDERED: MAGNESIUM SULFATE-D5W PMX 1 GM in DEXTROSE/WATER 1 100ML.BAG IVPB ONE (10:57)
[2017-02-02] MEDS ORDERED: INSULIN REGULAR 100 UNIT/ML VIAL IV ONE (10:59)
[2017-02-02] MEDS ORDERED: ONDANSETRON 4 MG/2 ML VIAL IVP STA (11:36)
[2017-02-02 14:05] LABS: Glucose,Whole Blood 324 mg/dL (75-99)
--- NOTE | 2017-02-02 15:06 | ED ---
Medical Decision Making - Medical Decision Making The initial plan was discharge the patient she was feeling improved her blood pressure however remained low the patient's blood pressure did improve but she started developing chest pain. She still has some nausea. She will be admitted. The case will be discussed with Dr. Lewis - Lab Data Result diagrams: 02/02/17 09:51 02/02/17 09:51 Lab Results 02/02/17 02/02/17 02/02/17 Range/Units 09:41 09:51 09:51 WBC (3.8-10.6) k/uL RBC (3.80-5.40) m/uL Hgb (11.4-16.0) gm/dL Hct (34.0-46.0) % MCV (80.0-100.0) fL MCH (25.0-35.0) pg MCHC (31.0-37.0) g/dL RDW (11.5-15.5) % Plt Count (150-450) k/uL Neutrophils % % Lymphocytes % % Monocytes % % Eosinophils % % Basophils % % Neutrophils # (1.3-7.7) k/uL Lymphocytes # (1.0-4.8) k/uL Monocytes # (0-1.0) k/uL Eosinophils # (0-0.7) k/uL Basophils # (0-0.2) k/uL Sodium 130 L (137-145) mmol/L Potassium 5.5 H (3.5-5.1) mmol/L Chloride 95 L (98-107) mmol/L Carbon Dioxide 22 (22-30) mmol/L Anion Gap 13 mmol/L BUN 32 H (7-17) mg/dL Creatinine 1.38 H (0.52-1.04) mg/dL Est GFR (MDRD) Af Amer 46 (>60 ml/min/1.73 sqM) Est GFR (MDRD) Non-Af 38 (>60 ml/min/1.73 sqM) Glucose 336 H (74-99) mg/dL POC Glucose (mg/dL) 312 H (75-99) mg/dL POC Glu Industrial Engineering Professor ID Joseph Fields Calcium 11.7 H (8.4-10.2) mg/dL Magnesium 1.4 L (1.6-2.3) mg/dL Total Bilirubin 0.7 (0.2-1.3) mg/dL AST 25 (14-36) U/L ALT 30 (9-52) U/L Alkaline Phosphatase 57 (38-126) U/L Total Creatine Kinase 26 L (30-135) U/L CK-MB (CK-2) 0.8 (0.0-2.4) ng/mL CK-MB (CK-2) Rel Index 3.1 Troponin I 0.028 (0.000-0.034) ng/mL Total Protein 7.2 (6.3-8.2) g/dL Albumin 4.6 (3.5-5.0) g/dL Amylase 37 (30-110) U/L Lipase 160 (23-300) U/L Cortisol ug/dL Urine Color Urine Appearance (Clear) Urine pH (5.0-8.0) Ur Specific Clarence (1.001-1.035) Urine Protein (Negative) Urine Glucose (UA) (Negative) Urine Ketones (Negative) Urine Blood (Negative) Urine Nitrite (Negative) Urine Bilirubin (Negative) Urine Urobilinogen (<2.0) mg/dL Ur Leukocyte Esterase (Negative) Acetone, Qual Negative (Negative) 02/02/17 02/02/17 02/02/17 Range/Units 09:51 09:51 09:51 WBC 10.5 (3.8-10.6) k/uL RBC 4.47 (3.80-5.40) m/uL Hgb 12.7 (11.4-16.0) gm/dL Hct 37.7 (34.0-46.0) % MCV 84.2 (80.0-100.0) fL MCH 28.5 (25.0-35.0) pg MCHC 33.8 (31.0-37.0) g/dL RDW 15.2 (11.5-15.5) % Plt Count 262 (150-450) k/uL Neutrophils % 72 % Lymphocytes % 19 % Monocytes % 4 % Eosinophils % 3 % Basophils % 0 % Neutrophils # 7.5 (1.3-7.7) k/uL Lymphocytes # 2.0 (1.0-4.8) k/uL Monocytes # 0.4 (0-1.0) k/uL Eosinophils # 0.3 (0-0.7) k/uL Basophils # 0.0 (0-0.2) k/uL Sodium (137-145) mmol/L Potassium (3.5-5.1) mmol/L Chloride (98-107) mmol/L Carbon Dioxide (22-30) mmol/L Anion Gap mmol/L BUN (7-17) mg/dL Creatinine (0.52-1.04) mg/dL Est GFR (MDRD) Af Amer (>60 ml/min/1.73 sqM) Est GFR (MDRD) Non-Af (>60 ml/min/1.73 sqM) Glucose (74-99) mg/dL POC Glucose (mg/dL) (75-99) mg/dL POC Glu Industrial Engineering Professor ID Calcium (8.4-10.2) mg/dL Magnesium (1.6-2.3) mg/dL Total Bilirubin (0.2-1.3) mg/dL AST (14-36) U/L ALT (9-52) U/L Alkaline Phosphatase (38-126) U/L Total Creatine Kinase (30-135) U/L CK-MB (CK-2) (0.0-2.4) ng/mL CK-MB (CK-2) Rel Index Troponin I (0.000-0.034) ng/mL Total Protein (6.3-8.2) g/dL Albumin (3.5-5.0) g/dL Amylase (30-110) U/L Lipase (23-300) U/L Cortisol 39 ug/dL Urine Color Yellow Urine Appearance Clear (Clear) Urine pH 5.5 (5.0-8.0) Ur Specific Clarence 1.019 (1.001-1.035) Urine Protein Trace H (Negative) Urine Glucose (UA) 3+ H (Negative) Urine Ketones Negative (Negative) Urine Blood Negative (Negative) Urine Nitrite Negative (Negative) Urine Bilirubin Negative (Negative) Urine Urobilinogen 2.0 (<2.0) mg/dL Ur Leukocyte Esterase Negative (Negative) Acetone, Qual (Negative) 02/02/17 Range/Units 14:01 WBC (3.8-10.6) k/uL RBC (3.80-5.40) m/uL Hgb (11.4-16.0) gm/dL Hct (34.0-46.0) % MCV (80.0-100.0) fL MCH (25.0-35.0) pg MCHC (31.0-37.0) g/dL RDW (11.5-15.5) % Plt Count (150-450) k/uL Neutrophils % % Lymphocytes % % Monocytes % % Eosinophils % % Basophils % % Neutrophils # (1.3-7.7) k/uL Lymphocytes # (1.0-4.8) k/uL Monocytes # (0-1.0) k/uL Eosinophils # (0-0.7) k/uL Basophils # (0-0.2) k/uL Sodium (137-145) mmol/L Potassium (3.5-5.1) mmol/L Chloride (98-107) mmol/L Carbon Dioxide (22-30) mmol/L Anion Gap mmol/L BUN (7-17) mg/dL Creatinine (0.52-1.04) mg/dL Est GFR (MDRD) Af Amer (>60 ml/min/1.73 sqM) Est GFR (MDRD) Non-Af (>60 ml/min/1.73 sqM) Glucose (74-99) mg/dL POC Glucose (mg/dL) 324 H (75-99) mg/dL POC Glu Industrial Engineering Professor ID Anel Heard Calcium (8.4-10.2) mg/dL Magnesium (1.6-2.3) mg/dL Total Bilirubin (0.2-1.3) mg/dL AST (14-36) U/L ALT (9-52) U/L Alkaline Phosphatase (38-126) U/L Total Creatine Kinase (30-135) U/L CK-MB (CK-2) (0.0-2.4) ng/mL CK-MB (CK-2) Rel Index Troponin I (0.000-0.034) ng/mL Total Protein (6.3-8.2) g/dL Albumin (3.5-5.0) g/dL Amylase (30-110) U/L Lipase (23-300) U/L Cortisol ug/dL Urine Color Urine Appearance (Clear) Urine pH (5.0-8.0) Ur Specific Clarence (1.001-1.035) Urine Protein (Negative) Urine Glucose (UA) (Negative) Urine Ketones (Negative) Urine Blood (Negative) Urine Nitrite (Negative) Urine Bilirubin (Negative) Urine Urobilinogen (<2.0) mg/dL Ur Leukocyte Esterase (Negative) Acetone, Qual (Negative) Disposition Clinical Impression: Uncontrolled diabetes mellitus, Dehydration, Hypotensive episode, Chest pain Disposition: ADMITTED IP TO THIS HOSP Condition: Good Prescriptions: Ondansetron [Zofran ODT] 4 mg PO Q8HR #12 tab
[2017-02-02] MEDS ORDERED: NALOXONE 0.4 MG/ML 1 ML VIAL IV PRN (15:09)
[2017-02-02 16:14] LABS: Glucose,Whole Blood 248 mg/dL (75-99)
[2017-02-02] MEDS: INSULIN LISPRO (humaLOG) 300 UNIT/3 ML VIAL SQ SCH ×2 (16:53→21:50)
[2017-02-02] MEDS: CALCIUM CARB-VIT D 500MG-200UN 1 EACH TAB PO SCH (16:53)
[2017-02-02] MEDS: CARVEDILOL 12.5 MG TAB PO SCH (16:54)
[2017-02-02 20:49] LABS: Glucose,Whole Blood 258 mg/dL (75-99)
[2017-02-02] MEDS: CILOSTAZOL 100 MG TAB PO SCH (21:49)
[2017-02-02] MEDS: INSULIN GLARGINE 100 UNIT/ML 10 ML VIAL SQ SCH (21:49)
[2017-02-02] MEDS: ACETAMINOPHEN TAB 325 MG TAB PO PRN (21:49)
[2017-02-02] MEDS: SODIUM CHLORIDE 0.9% 1,000 ML IV SCH (21:54)
[2017-02-03 05:55] LABS: Glucose,Whole Blood 199 mg/dL (75-99)
[2017-02-03 06:17] LABS: Basophils % (A) 1 %; CH 28.6; CHCM 33.4; Eosinophils # (A) 0.2 k/uL (0-0.7); Eosinophils % (A) 4 %; HCT 29.9 % (34.0-46.0); HDW 2.83; HGB 10.1 gm/dL (11.4-16.0); Luc % (Auto) 2; Lymphocytes # (A) 1.6 k/uL (1.0-4.8); Lymphocytes % (A) 27 %; MCH 28.9 pg (25.0-35.0); MCHC 33.7 g/dL (31.0-37.0); MCV 85.7 fL (80.0-100.0); Mean Platelet Volume 7.9; Monocytes # (A) 0.3 k/uL (0-1.0); Monocytes % (A) 6 %; Neutrophils # (A) 3.5 k/uL (1.3-7.7); Neutrophils % (A) 61 %; RBC 3.49 m/uL (3.80-5.40); RDW 14.2 % (11.5-15.5); WBC 5.7 k/uL (3.8-10.6); WBC (Perox) 5.87
[2017-02-03 06:25] LABS: Calcium 9.8 mg/dL (8.4-10.2); Potassium 5.1 mmol/L (3.5-5.1); Total Bilirubin 0.2 mg/dL (0.2-1.3); Total Protein 5.5 g/dL (6.3-8.2)
[2017-02-03] MEDS: PANTOPRAZOLE 40 MG TABLET PO SCH (06:54)
[2017-02-03] MEDS: CALCIUM CARB-VIT D 500MG-200UN 1 EACH TAB PO SCH ×2 (06:54→21:03)
[2017-02-03] MEDS: CARVEDILOL 12.5 MG TAB PO SCH ×2 (06:54→16:25)
[2017-02-03] MEDS: INSULIN LISPRO (humaLOG) 300 UNIT/3 ML VIAL SQ SCH ×4 (06:55→21:03)
[2017-02-03] MEDS: ATORVASTATIN 40 MG TAB PO SCH (08:20)
[2017-02-03] MEDS: ASPIRIN 81 MG PO SCH (08:20)
[2017-02-03] MEDS: CLOPIDOGREL 75 MG TAB PO SCH (08:21)
[2017-02-03] MEDS: DULoxetine HCL 60 MG CAPSULE.DR PO SCH (08:21)
[2017-02-03] MEDS: CHOLECALCIFEROL 1,000 UNIT TAB PO SCH (08:21)
[2017-02-03] MEDS: CILOSTAZOL 100 MG TAB PO SCH ×2 (08:21→21:03)
[2017-02-03] MEDS: ACETAMINOPHEN TAB 325 MG TAB PO PRN ×2 (08:21→21:06)
[2017-02-03] MEDS: SODIUM CHLORIDE 0.9% 1,000 ML IV SCH ×2 (08:26→21:03)
[2017-02-03] MEDS ORDERED: NON-FORMULARY DRUG (Ubidecarenone [Co Q-10] 100 MG) PO SCH (09:00)
[2017-02-03 10:01] VITALS: BMI 30.7
--- NOTE | 2017-02-03 10:40 | P.HPIM ---
History of Present Illness H&P Date: 02/03/17 Chief Complaint: chest pain/uncontrolled diabetes mellitus type 2 This is a 71-year-old female one of my patient with a previous medical history significant for coronary artery disease status post coronary artery bypass graft with ischemic cardio myopathy and percutaneous coronary intervention and a total of 4 stents placement last one was put in the LAD back in November 2014, AICD placement, history of left subclavian stenosis status post stenting, carotid artery disease status post bilateral carotid endarterectomies , severe peripheral arterial occlusive disease, patient was recently seen by Dr. Amezcua at [facility], for possible revascularization of the left lower extremity, however patient underwent angiogram was not a candidate for any surgical intervention according to him and she was placed on Pletal 100 mg orally twice every day, patient was doing fine up until recently when she woke up but yesterday took her medication and developed to have a significant left sided chest pressure associated with increased diaphoresis at the same time she was quite hypotensive, she ended up coming to the ER at [facility] she was admitted to the hospital for evaluation she was seen in consultation by cardiology for further recommendation. Review of Systems Constitutional: Reports weakness, Denies anorexia, Denies chronic pain, Denies lethargy, Denies malaise, Denies weight gain, Denies weight loss Eyes: bilateral blurred vision, denies bulging eye, denies decreased vision, denies diplopia, denies discharge Ears: deny: decreased hearing Ears, nose, mouth and throat: Reports vertigo, Denies dysphagia, Denies neck fullness/pressure, Denies neck lump, Denies swelling in throat, Denies sore throat Cardiovascular: Reports chest pain, Reports decreased exercise tolerance, Reports dyspnea on exertion, Reports high blood pressure, Reports shortness of breath, Denies phlebitis, Denies rapid heart beat, Denies syncope Respiratory: Denies congestion, Denies cough, Denies cough with sputum, Denies hemoptysis, Denies home oxygen, Denies sleep apnea, Denies snoring, Denies wheezing Gastrointestinal: Reports bloating, Denies abdominal pain, Denies belching, Denies BRBPR, Denies change in bowel habits, Denies heartburn, Denies hematemesis, Denies hematochezia, Denies melena, Denies nausea, Denies vomiting Genitourinary: Denies dysuria, Denies hematuria Menstruation: Reports post hysterectomy Musculoskeletal: Reports atrophy, Reports gait dysfunction Musculoskeletal: absent: ankle pain, ankle stiffness, ankle swelling, elbow pain , elbow stiffness, elbow swelling, foot pain, foot stiffness, foot swelling, hand pain, hand stiffness, hand swelling, hip pain, hip stiffness, hip swelling , knee pain, knee stiffness, knee swelling, shoulder pain, shoulder stiffness, shoulder swelling, wrist pain, wrist stiffness, wrist swelling Integumentary: Denies pruritus, Denies rash Neurological: Denies numbness, Denies weakness Psychiatric: Reports anxiety, Reports depression Endocrine: Denies fatigue, Denies weight change Past Medical History Past Medical History: Coronary Artery Disease (CAD), Chest Pain / Angina, Heart Failure, CVA/TIA, Diabetes Mellitus, GERD/Reflux, Hyperlipidemia, Hypertension, Myocardial Infarction (CT), Osteoarthritis (OA), Syncope Additional Past Medical History / Comment(s): POLIO, ISCHEMIC CARDIOMYOPATHY EF 30%, PAD, ARRYTHMIA, SEE H&P Last Myocardial Infarction Date:: 2012 History of Any Multi-Drug Resistant Organisms: None Reported Past Surgical History: Appendectomy, Cholecystectomy, Coronary Bypass/CABG, Heart Catheterization, Heart Catheterization With Stent, Hysterectomy Additional Past Surgical History / Comment(s): joanna carotid endarderectomies, ovarian cyst, STENT LT SUBCLAVIAN - TOTAL 4 STENTS 1. Past Anesthesia/Blood Transfusion Reactions: No Reported Reaction Date of Last Stent Placement:: 11/2014 Type of Cardiac Device: AICD Past Psychological History: Anxiety Additional Psychological History / Comment(s): pt. states she has a history of anxiety and it is controlled with Zoloft Smoking Status: Never smoker Past Alcohol Use History: None Reported Past Drug Use History: None Reported - Past Family History Father Family Medical History: Cancer Additional Family Medical History / Comment(s): pt. states her father had throat cancer Mother Family Medical History: Coronary Artery Disease (CAD), Hyperlipidemia, Hypertension Additional Family Medical History / Comment(s): CABG Medications and Allergies Home Medications Medication Instructions Recorded Confirmed Type Calcium Carbonate/Vitamin D3 1 tab PO BID 08/08/14 02/02/17 History [Calcium 600-Vit D3 400 Tablet] Insulin Glargine [Lantus] 51 unit SQ HS 08/08/14 02/02/17 History Clopidogrel [Plavix] 75 mg PO DAILY 11/22/14 02/02/17 History Atorvastatin [Lipitor] 40 mg PO DAILY 11/26/16 02/02/17 History Ubidecarenone [Co Q-10] 100 mg PO DAILY 11/26/16 02/02/17 History Aspirin [Adult Low Dose Aspirin EC] 81 mg PO DAILY 02/02/17 02/02/17 History Carvedilol 25 mg PO BID 02/02/17 02/02/17 History Cholecalciferol [Vitamin D3] 1,000 unit PO DAILY 02/02/17 02/02/17 History Cilostazol [Pletal] 100 mg PO BID 02/02/17 02/02/17 History DULoxetine HCL [Cymbalta] 60 mg PO DAILY 02/02/17 02/02/17 History Lansoprazole [Prevacid] 30 mg PO DAILY 02/02/17 02/02/17 History Ondansetron [Zofran ODT] 4 mg PO Q8HR #12 tab 02/02/17 Rx Allergies Allergy/AdvReac Type Severity Reaction Status Date / Time adhesive Allergy Itching Verified 02/02/17 10:17 codeine Allergy Hallucinati Verified 02/02/17 10:17 ons dipyridamole Allergy heart Verified 02/02/17 10:17 [From Persantine] stopped latex AdvReac Rash/Hives Verified 02/02/17 10:17 metformin AdvReac Unknown Verified 02/02/17 10:17 Physical Exam Vitals: Vital Signs Temp Pulse Pulse Resp BP BP Pulse Ox 02/03/17 04:00 97.6 F 81 18 111/55 98 02/03/17 00:00 96.1 F L 90 18 143/63 96 02/02/17 20:00 97.7 F 98 18 102/52 95 02/02/17 16:48 97 F L 84 16 157/67 97 02/02/17 16:15 98 F 81 16 121/58 95 02/02/17 15:45 98 F 81 16 121/58 95 02/02/17 14:50 95 18 124/57 95 02/02/17 14:05 97 02/02/17 13:54 106 H 18 86/48 02/02/17 12:19 101 H 16 97/54 02/02/17 09:30 97.4 F L 96 20 94/51 95 Intake and Output 02/02/17 02/03/17 02/03/17 22:59 06:59 14:59 Intake Total 600 Balance 600 Intake: IV 600 Sodium Chloride 0.9% 1, 600 000 ml @ 75 mls/hr IV . [id number] [facility] Rx#:[id number] Other: Voiding Method Toilet Toilet # Voids 1 2 # Bowel Movements 1 Weight 69.8 kg 71.2 kg - Constitutional General appearance: average body habitus, mild distress, no acute distress - EENT Eyes: anicteric sclerae, EOMI, PERRLA, no ptosis, no scleral icterus, normal appearance ENT: hearing grossly normal, NA/AT, normal oropharynx, no thrush Ears: bilateral: normal - Neck Neck: no lymphadenopathy, normal ROM, no rigidity, no stridor, no thyromegaly Carotids: bilateral: upstroke delayed - Respiratory Respiratory: bilateral: diminished, negative: dullness, rales, rhonchi, wheezing , prolonged expiration - Cardiovascular Rhythm: regular Heart sounds: normal: S1, S2 Abnormal Heart Sounds: systolic murmur, no rub, S3 Gallop, no click - Gastrointestinal General gastrointestinal: normal bowel sounds, soft, no splenomegaly, no tenderness, no umbilical hernia, no ventral hernia - Integumentary Integumentary: normal, normal turgor - Neurologic Neurologic: CNII-XII intact - Musculoskeletal Musculoskeletal: generalized weakness, strength equal bilaterally - Psychiatric Psychiatric: A&O x's 3, appropriate affect, intact judgment & insight Results CBC & Chem 7: 02/03/17 05:46 02/03/17 05:50 Labs: Abnormal Lab Results - Last 24 Hours (Table) 02/02/17 02/02/17 02/02/17 Range/Units 09:41 09:51 09:51 RBC (3.80-5.40) m/uL Hgb (11.4-16.0) gm/dL Hct (34.0-46.0) % Plt Count (150-450) k/uL Sodium 130 L (137-145) mmol/L Potassium 5.5 H (3.5-5.1) mmol/L Chloride 95 L (98-107) mmol/L BUN 32 H (7-17) mg/dL Creatinine 1.38 H (0.52-1.04) mg/dL Glucose 336 H (74-99) mg/dL POC Glucose (mg/dL) 312 H (75-99) mg/dL Calcium 11.7 H (8.4-10.2) mg/dL Magnesium 1.4 L (1.6-2.3) mg/dL Total Creatine Kinase 26 L (30-135) U/L Total Protein (6.3-8.2) g/dL Albumin (3.5-5.0) g/dL Urine Protein (Negative) Urine Glucose (UA) (Negative) 02/02/17 02/02/17 02/02/17 Range/Units 09:51 14:01 16:12 RBC (3.80-5.40) m/uL Hgb (11.4-16.0) gm/dL Hct (34.0-46.0) % Plt Count (150-450) k/uL Sodium (137-145) mmol/L Potassium (3.5-5.1) mmol/L Chloride (98-107) mmol/L BUN (7-17) mg/dL Creatinine (0.52-1.04) mg/dL Glucose (74-99) mg/dL POC Glucose (mg/dL) 324 H 248 H (75-99) mg/dL Calcium (8.4-10.2) mg/dL Magnesium (1.6-2.3) mg/dL Total Creatine Kinase (30-135) U/L Total Protein (6.3-8.2) g/dL Albumin (3.5-5.0) g/dL Urine Protein Trace H (Negative) Urine Glucose (UA) 3+ H (Negative) 02/02/17 02/03/17 02/03/17 Range/Units 20:46 05:46 05:50 RBC 3.49 L (3.80-5.40) m/uL Hgb 10.1 L (11.4-16.0) gm/dL Hct 29.9 L (34.0-46.0) % Plt Count 147 L (150-450) k/uL Sodium 135 L (137-145) mmol/L Potassium (3.5-5.1) mmol/L Chloride (98-107) mmol/L BUN 25 H (7-17) mg/dL Creatinine 1.10 H (0.52-1.04) mg/dL Glucose 196 H (74-99) mg/dL POC Glucose (mg/dL) 258 H (75-99) mg/dL Calcium (8.4-10.2) mg/dL Magnesium (1.6-2.3) mg/dL Total Creatine Kinase (30-135) U/L Total Protein 5.5 L (6.3-8.2) g/dL Albumin 3.3 L (3.5-5.0) g/dL Urine Protein (Negative) Urine Glucose (UA) (Negative) 02/03/17 Range/Units 05:52 RBC (3.80-5.40) m/uL Hgb (11.4-16.0) gm/dL Hct (34.0-46.0) % Plt Count (150-450) k/uL Sodium (137-145) mmol/L Potassium (3.5-5.1) mmol/L Chloride (98-107) mmol/L BUN (7-17) mg/dL Creatinine (0.52-1.04) mg/dL Glucose (74-99) mg/dL POC Glucose (mg/dL) 199 H (75-99) mg/dL Calcium (8.4-10.2) mg/dL Magnesium (1.6-2.3) mg/dL Total Creatine Kinase (30-135) U/L Total Protein (6.3-8.2) g/dL Albumin (3.5-5.0) g/dL Urine Protein (Negative) Urine Glucose (UA) (Negative) Thrombosis Risk Factor Assmnt - DVT/VTE Prophylaxis DVT/VTE Prophylaxis: Pharmacologic Prophylaxis ordered, Mechanical Prophylaxis ordered Assessment and Plan Plan: Assessment and plan: 1. Chest discomfort and the patient with a prior history of CAD with ischemic cardiomyopathy and multiple PCI's including the last one in then LAD back in 2014 and left subclavian stenosis post intervention as well, patient will be admitted to the hospital, she will be kept on heparin drip for now continue aspirin 81 mg once every day, Plavix 75 mg orally once every day Lipitor 80 mg orally once every day, Coreg 25 mg orally twice every day, cardiology evaluation , echocardiogram. 2. CAD post CABG with ischemic cardiopathy post AICD. Continue treatment as in paragraph #1. 3. Severe PAD post evaluation by vascular surgery. Continue Pletal 100 mg orally twice every day. 4. Carotid artery disease status post carotid endarterectomies. Continue with aspirin, Plavix, Lipitor for secondary prevention. 5. Ucontrolled diabetes mellitus type 2. Continue Lantus 51 units at bedtime along with the Humalog per sliding scale. Continue BGM before each meal and bedtime. 6. Hypertension and hypertensive cardio vascular disease. Continue patient on Coreg 25 mg orally twice every day. 7. Hyperlipidemia. Continue patient on Lipitor 80 mg orally once every day. 8. History of left subclavian stenosis. Post stenting. Stable at this time. 9. Post polio. 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 10. History of GERD. Continue patient on Prevacid 30 mg orally once every day. 11. Vitamin D deficiency. Continue patient on vitamin D 1000 units once every day. 12. Depression. Continue Cymbalta 60 mg orally once every day. 13. DVT prophylaxis. Continue heparin drip. 14. GI prophylaxis. Continue PPI. 15. Admit to inpatient. Estimated length of stay 2 midnights. 16. Patient is full code.
--- NOTE | 2017-02-03 10:52 | P.CRDCN ---
History of Present Illness Consult date: 02/03/17 Chief complaint: Chest discomfort History of present illness: This is a pleasant 71-year-old female patient who was a patient of Dr. Gutierrez in the past with a past medical history significant for CAD with prior revascularization in the term of bypass surgery as well as stenting with unknown details, severe ischemic cardiomyopathy with a known EF around 30%, diabetes, hypertension, dyslipidemia, and extensive peripheral arterial disease , presented to the hospital complaining of chest discomfort. The patient describes intermittent episodes of chest discomfort, as a dull sensation in the chest, without any radiation to the left arm or to the neck or the shoulder. She was also experiencing some shortness of breath and dizziness and lightheadedness with this. The discomfort is of variable duration but it was lasted for few minutes most of the time. She was not having any chest discomfort prior to the last several days. She noticed that the blood sugar was high and the blood pressure was low over the last few days. The EKG showed sinus rhythm with non-specific changes in the high lateral leads 1 and aVL which seems to be the same as before. We have only one set of cardiac enzyme came in to be unremarkable. The patient has been chest pain-free. She is known to have severe underlying PAD with known severe aortoiliac disease and she was seen recently by a vascular surgeon out of the town who performed a peripheral angiogram on her and that showed severe disease where the patient deemed to be not candidate for surgical and or percutaneous revascularization. On physical examination I was unable to feed any pulse in both femoral arteries. She has good bilateral radial pulses. She is also known to have severe bilateral carotid disease and she underwent bilateral carotid endarterectomy in the past. Past Medical History Past Medical History: Coronary Artery Disease (CAD), Chest Pain / Angina, Heart Failure, CVA/TIA, Diabetes Mellitus, GERD/Reflux, Hyperlipidemia, Hypertension, Myocardial Infarction ([place]), Osteoarthritis (OA), Syncope Additional Past Medical History / Comment(s): POLIO, ISCHEMIC CARDIOMYOPATHY EF 30%, PAD, ARRYTHMIA, SEE H&P Last Myocardial Infarction Date:: 2012 History of Any Multi-Drug Resistant Organisms: None Reported Past Surgical History: Appendectomy, Cholecystectomy, Coronary Bypass/CABG, Heart Catheterization, Heart Catheterization With Stent, Hysterectomy Additional Past Surgical History / Comment(s): joanna carotid endarderectomies, ovarian cyst, STENT LT SUBCLAVIAN - TOTAL 4 STENTS 1. Past Anesthesia/Blood Transfusion Reactions: No Reported Reaction Date of Last Stent Placement:: 11/2014 Type of Cardiac Device: AICD Past Psychological History: Anxiety Additional Psychological History / Comment(s): pt. states she has a history of anxiety and it is controlled with Zoloft Smoking Status: Never smoker Past Alcohol Use History: None Reported Past Drug Use History: None Reported - Past Family History Father Family Medical History: Cancer Additional Family Medical History / Comment(s): pt. states her father had throat cancer Mother Family Medical History: Coronary Artery Disease (CAD), Hyperlipidemia, Hypertension Additional Family Medical History / Comment(s): CABG Medications and Allergies Home Medications Medication Instructions Recorded Confirmed Type Calcium Carbonate/Vitamin D3 1 tab PO BID 08/08/14 02/02/17 History [Calcium 600-Vit D3 400 Tablet] Insulin Glargine [Lantus] 51 unit SQ HS 08/08/14 02/02/17 History Clopidogrel [Plavix] 75 mg PO DAILY 11/22/14 02/02/17 History Atorvastatin [Lipitor] 40 mg PO DAILY 11/26/16 02/02/17 History Ubidecarenone [Co Q-10] 100 mg PO DAILY 11/26/16 02/02/17 History Aspirin [Adult Low Dose Aspirin EC] 81 mg PO DAILY 02/02/17 02/02/17 History Carvedilol 25 mg PO BID 02/02/17 02/02/17 History Cholecalciferol [Vitamin D3] 1,000 unit PO DAILY 02/02/17 02/02/17 History Cilostazol [Pletal] 100 mg PO BID 02/02/17 02/02/17 History DULoxetine HCL [Cymbalta] 60 mg PO DAILY 02/02/17 02/02/17 History Lansoprazole [Prevacid] 30 mg PO DAILY 02/02/17 02/02/17 History Ondansetron [Zofran ODT] 4 mg PO Q8HR #12 tab 02/02/17 Rx Allergies Allergy/AdvReac Type Severity Reaction Status Date / Time adhesive Allergy Itching Verified 02/02/17 10:17 codeine Allergy Hallucinati Verified 02/02/17 10:17 ons dipyridamole Allergy heart Verified 02/02/17 10:17 [From Persantine] stopped latex AdvReac Rash/Hives Verified 02/02/17 10:17 metformin AdvReac Unknown Verified 02/02/17 10:17 Physical Exam Vitals: Vital Signs Temp Pulse Pulse Resp BP BP Pulse Ox 02/03/17 08:00 97.7 F 80 18 119/58 95 02/03/17 04:00 97.6 F 81 18 111/55 98 02/03/17 00:00 96.1 F L 90 18 143/63 96 02/02/17 20:00 97.7 F 98 18 102/52 95 02/02/17 16:48 97 F L 84 16 157/67 97 02/02/17 16:15 98 F 81 16 121/58 95 02/02/17 15:45 98 F 81 16 121/58 95 02/02/17 14:50 95 18 124/57 95 02/02/17 14:05 97 02/02/17 13:54 106 H 18 86/48 02/02/17 12:19 101 H 16 97/54 Intake and Output 02/02/17 02/03/17 02/03/17 22:59 06:59 14:59 Intake Total 600 Balance 600 Intake: IV 600 Sodium Chloride 0.9% 1, 600 000 ml @ 75 mls/hr IV . [id number] [facility] Rx#:[id number] Other: Voiding Method Toilet Toilet Toilet # Voids 1 2 # Bowel Movements 1 Weight 69.8 kg 71.2 kg 71.2 kg Patient Weight 02/04/17 06:59 Weight 71.2 kg - Constitutional General appearance: no acute distress - Respiratory Respiratory: bilateral: CTA - Cardiovascular Rhythm: regular Heart sounds: normal: S1, S2 Abnormal Heart Sounds: systolic murmur Results 02/03/17 05:46 02/03/17 05:50 Cardiac Enzymes 02/02/17 02/03/17 Range/Units 09:51 05:50 AST 19 (14-36) U/L CK-MB (CK-2) 0.8 (0.0-2.4) ng/mL Troponin I 0.028 (0.000-0.034) ng/mL CBC 02/03/17 Range/Units 05:46 WBC 5.7 (3.8-10.6) k/uL RBC 3.49 L (3.80-5.40) m/uL Hgb 10.1 L (11.4-16.0) gm/dL Hct 29.9 L (34.0-46.0) % Plt Count 147 L (150-450) k/uL Comprehensive Metabolic Panel 02/03/17 Range/Units 05:50 Sodium 135 L (137-145) mmol/L Potassium 5.1 (3.5-5.1) mmol/L Chloride 106 (98-107) mmol/L Carbon Dioxide 22 (22-30) mmol/L BUN 25 H (7-17) mg/dL Creatinine 1.10 H (0.52-1.04) mg/dL Glucose 196 H (74-99) mg/dL Calcium 9.8 (8.4-10.2) mg/dL AST 19 (14-36) U/L ALT 31 (9-52) U/L Alkaline Phosphatase 42 (38-126) U/L Total Protein 5.5 L (6.3-8.2) g/dL Albumin 3.3 L (3.5-5.0) g/dL Current Medications Generic Name Dose Route Start Last Admin Trade Name Freq PRN Reason Stop Dose Admin Acetaminophen 650 mg 02/02/17 21:19 02/03/17 08:21 Tylenol Tab PO 650 mg Q4HR PRN Administration Fever and/ or Mild Pain Aspirin 81 mg 02/03/17 09:00 02/03/17 08:20 Aspirin PO 81 mg DAILY NOE Administration Atorvastatin Calcium 40 mg 02/03/17 09:00 02/03/17 08:20 Lipitor PO 40 mg DAILY NOE Administration Calcium Carbonate 1 each 02/02/17 17:30 02/03/17 06:54 Oscal 500+D PO 1 each BID-W/MEALS NOE Administration Carvedilol 25 mg 02/02/17 17:30 02/03/17 06:54 Coreg PO 25 mg BID-W/MEALS NOE Administration Cholecalciferol 1,000 unit 02/03/17 12:00 02/03/17 08:21 Vitamin D3 PO 1,000 unit 1200 NOE Administration Cilostazol 100 mg 02/02/17 21:00 02/03/17 08:21 Pletal PO 100 mg BID NOE Administration Clopidogrel Bisulfate 75 mg 02/03/17 09:00 02/03/17 08:21 Plavix PO 75 mg DAILY NOE Administration Duloxetine HCl 60 mg 02/03/17 09:00 02/03/17 08:21 Cymbalta PO 60 mg DAILY NOE Administration Sodium Chloride 1,000 mls @ 75 mls/hr 02/02/17 21:30 02/03/17 08:26 Saline 0.9% IV 75 mls/hr .[id number] NOE Administration Insulin Glargine 51 unit 02/02/17 21:00 02/02/17 21:49 Lantus SQ 51 unit HS NOE Administration Insulin Human Lispro 0 unit 02/02/17 17:30 02/03/17 06:55 Humalog SQ 2 unit ACHS NOE Administration Protocol Naloxone HCl 0.2 mg 02/02/17 15:09 Narcan IV Q2M PRN Opioid Reversal Pantoprazole Sodium 40 mg 02/03/17 07:30 02/03/17 06:54 Protonix PO 40 mg [id number] NOE Administration Intake and Output 02/02/17 02/03/17 02/03/17 22:59 06:59 14:59 Intake Total 600 Balance 600 Intake: IV 600 Sodium Chloride 0.9% 1, 600 000 ml @ 75 mls/hr IV . [id number] [facility] Rx#:[id number] Other: Voiding Method Toilet Toilet Toilet # Voids 1 2 # Bowel Movements 1 Weight 69.8 kg 71.2 kg 71.2 kg Patient Weight 02/04/17 06:59 Weight 71.2 kg 02/03/17 05:46 02/03/17 05:50 Assessment and Plan Plan: This is a pleasant 71-year-old female patient with a known CAD, PAD, diabetes, hypertension, dyslipidemia as well as carotid disease presented to the hospital complaining of intermittent episodes of chest discomfort. The EKG showed no evidence of changes compared to before. We have only one set of cardiac enzyme came in to be unremarkable. We'll follow-up with the serial cardiac enzymes before we decide the next step in management. Currently the patient is on aspirin, statin, beta adilia we'll continue that. We will obtain an echocardiogram was Doppler to assess the LV function. Obtain the previous medical records from the office. Follow-up with the patient.
[2017-02-03 11:23] LABS: Glucose,Whole Blood 198 mg/dL (75-99)
[2017-02-03 12:05] LABS: Hemoglobin A1C 9.2 % (4.2-6.1)
[2017-02-03 16:30] LABS: Glucose,Whole Blood 234 mg/dL (75-99)
[2017-02-03 20:42] LABS: Glucose,Whole Blood 199 mg/dL (75-99)
[2017-02-03] MEDS: INSULIN GLARGINE 100 UNIT/ML 10 ML VIAL SQ SCH (21:03)
[2017-02-04 06:04] LABS: Glucose,Whole Blood 163 mg/dL (75-99)
[2017-02-04] MEDS: CALCIUM CARB-VIT D 500MG-200UN 1 EACH TAB PO SCH ×2 (06:55→15:47)
[2017-02-04] MEDS: INSULIN LISPRO (humaLOG) 300 UNIT/3 ML VIAL SQ SCH ×6 (06:55→22:13)
[2017-02-04] MEDS: CARVEDILOL 12.5 MG TAB PO SCH ×2 (06:55→15:47)
[2017-02-04] MEDS: PANTOPRAZOLE 40 MG TABLET PO SCH (06:56)
[2017-02-04] MEDS: SODIUM CHLORIDE 0.9% 1,000 ML IV SCH (06:59)
[2017-02-04 08:57] LABS: Basophils % (A) 0 %; CH 28.1; CHCM 33.1; Eosinophils # (A) 0.2 k/uL (0-0.7); Eosinophils % (A) 4 %; HDW 2.88; HGB 10.4 gm/dL (11.4-16.0); Luc # (Auto) 0.07; Luc % (Auto) 1; Lymphocytes # (A) 1.2 k/uL (1.0-4.8); Lymphocytes % (A) 24 %; MCH 28.6 pg (25.0-35.0); MCHC 33.5 g/dL (31.0-37.0); MCV 85.3 fL (80.0-100.0); Mean Platelet Volume 7.6; Monocytes # (A) 0.2 k/uL (0-1.0); Monocytes % (A) 5 %; Neutrophils # (A) 3.4 k/uL (1.3-7.7); Neutrophils % (A) 67 %; RBC 3.63 m/uL (3.80-5.40); RDW 14.5 % (11.5-15.5); WBC 5.1 k/uL (3.8-10.6); WBC (Perox) 5.18
[2017-02-04 09:00] LABS: INR 1.1 (<1.2); Prothrombin Time 11.4 sec (9.0-12.0)
[2017-02-04 09:05] LABS: ALT 31 U/L (9-52); AST 20 U/L (14-36); Alkaline Phosphatase 38 U/L (38-126); Anion Gap 10 mmol/L; Blood Urea Nitrogen 17 mg/dL (7-17); Calcium 9.2 mg/dL (8.4-10.2); Carbon Dioxide 21 mmol/L (22-30); Chloride 109 mmol/L (98-107); Glucose 144 mg/dL (74-99); Magnesium 1.3 mg/dL (1.6-2.3); Non-African American GFR(MDRD) 57 (>60 ml/min/1.73 sqM); Potassium 4.7 mmol/L (3.5-5.1); Sodium 140 mmol/L (137-145); Total Bilirubin 0.2 mg/dL (0.2-1.3); Total Protein 5.9 g/dL (6.3-8.2)
[2017-02-04] MEDS: CLOPIDOGREL 75 MG TAB PO SCH (09:40)
[2017-02-04] MEDS: ATORVASTATIN 40 MG TAB PO SCH (09:40)
[2017-02-04] MEDS: CILOSTAZOL 100 MG TAB PO SCH ×2 (09:40→22:13)
[2017-02-04] MEDS: ASPIRIN 81 MG PO SCH (09:40)
[2017-02-04] MEDS: DULoxetine HCL 60 MG CAPSULE.DR PO SCH (09:40)
[2017-02-04] MEDS: CHOLECALCIFEROL 1,000 UNIT TAB PO SCH (09:41)
[2017-02-04] MEDS ORDERED: AMINOPHYLLINE 500 MG/20 ML VIAL IV PRN (09:53)
[2017-02-04] MEDS ORDERED: REGADENOSON 0.4 MG/5 ML SYRINGE IV ONE (09:53)
--- NOTE | 2017-02-04 11:08 | P.PN ---
Subjective Principal diagnosis: Chest discomfort This is a pleasant 71-year-old female who used to follow regularly with Dr. Gutierrez in the office. She has a known history of coronary artery disease with prior bypass surgery, severe ischemic cardio myopathy with documented ejection fraction of 30%, diabetes, hypertension, hyperlipidemia, and extensive peripheral arterial disease. She presented to the hospital with symptoms of chest discomfort. EKG showed normal sinus rhythm with nonspecific ST-T wave changes similar to prior EKGs. Initial troponin on admission 0.028, subsequent troponin 0.021. Hemoglobin 10.4 this morning, 12.7 on admission, potassium 4.7, BUN 17, creatinine 0.9. Blood pressure 130/50 with a heart rate in the 70s, 94% on room air. Patient denies any chest discomfort this morning, no difficulty in breathing. We will schedule the patient for a Lexiscan stress test today, based on those findings further recommendations will be made. Objective - Vital Signs Vital signs: Vital Signs Temp 97.1 F L 02/04/17 08:00 Pulse 79 02/04/17 08:00 Resp 18 02/04/17 08:00 BP 132/54 02/04/17 08:00 Pulse Ox 94 L 02/04/17 08:00 Intake & Output 02/03/17 02/04/17 02/04/17 18:59 06:59 18:59 Intake Total 420 600 Output Total 700 1 Balance -280 599 Weight 71.2 kg 71.6 kg Intake: IV 600 Sodium Chloride 0.9% 1, 600 000 ml @ 75 mls/hr IV . [id number] [facility] Rx#:[id number] Oral 420 Output: Urine 700 Urine/Stool Mix 1 Other: Voiding Method Toilet Toilet Toilet # Voids 2 1 - Exam PHYSICAL EXAMINATION: HEENT: Head is atraumatic, normocephalic. Pupils equal, round. Neck is supple. There is no elevated jugular venous pressure. HEART EXAMINATION: Heart S1 and S2 systolic murmur is heard. CHEST EXAMINATION: Lungs are clear to auscultation and precussion. No chest wall tenderness is noted on palpation or with deep breathing. ABDOMEN: Soft, nontender. Bowel sounds are heard. No organomegaly noted. EXTREMITIES: No palpable femoral pulses, patient does have palpable radial pulses. . NEUROLOGIC patient is awake, alert and oriented -3. . - Labs CBC & Chem 7: 02/04/17 08:48 02/04/17 08:48 Labs: Abnormal Lab Results - Last 24 Hours (Table) 02/02/17 02/03/17 02/03/17 Range/Units 09:51 11:17 16:24 RBC (3.80-5.40) m/uL Hgb (11.4-16.0) gm/dL Hct (34.0-46.0) % Chloride (98-107) mmol/L Carbon Dioxide (22-30) mmol/L Glucose (74-99) mg/dL POC Glucose (mg/dL) 198 H 234 H (75-99) mg/dL Hemoglobin A1c 9.2 H (4.2-6.1) % Magnesium (1.6-2.3) mg/dL Total Protein (6.3-8.2) g/dL 02/03/17 02/04/17 02/04/17 Range/Units 20:40 05:55 08:48 RBC 3.63 L (3.80-5.40) m/uL Hgb 10.4 L (11.4-16.0) gm/dL Hct 31.0 L (34.0-46.0) % Chloride (98-107) mmol/L Carbon Dioxide (22-30) mmol/L Glucose (74-99) mg/dL POC Glucose (mg/dL) 199 H 163 H (75-99) mg/dL Hemoglobin A1c (4.2-6.1) % Magnesium (1.6-2.3) mg/dL Total Protein (6.3-8.2) g/dL 02/04/17 Range/Units 08:48 RBC (3.80-5.40) m/uL Hgb (11.4-16.0) gm/dL Hct (34.0-46.0) % Chloride 109 H (98-107) mmol/L Carbon Dioxide 21 L (22-30) mmol/L Glucose 144 H (74-99) mg/dL POC Glucose (mg/dL) (75-99) mg/dL Hemoglobin A1c (4.2-6.1) % Magnesium 1.3 L (1.6-2.3) mg/dL Total Protein 5.9 L (6.3-8.2) g/dL Assessment and Plan (1) Chest pain Status: Acute (2) PAD (peripheral artery disease) Status: Acute (3) Uncontrolled diabetes mellitus Status: Acute (4) CAD (coronary artery disease) Status: Acute (5) Diabetes Status: Acute (6) HTN (hypertension) Status: Acute (7) Hx of CABG Status: Acute (8) Hyperlipidemia Status: Acute (9) Ischemic cardiomyopathy Status: Acute Plan: From cardiology standpoint, patient is scheduled to undergo a Lexiscan stress test today. Further recommendations will be based on these findings. DNP note has been reviewed, I agree with a documented findings and plan of care. Patient was seen and examined.
[2017-02-04 12:35] LABS: Glucose,Whole Blood 147 mg/dL (75-99)
--- NOTE | 2017-02-04 12:49 | NM ---
EXAMINATION TYPE: NM stress lexiscan cardiolite DATE OF EXAM: 02/04/2017 COMPARISON: NONE HISTORY: Precordial chest pain and abnormal EKG. TECHNIQUE: After the intravenous administration of 10.74 mCi Tc 99m Sestamibi - Cardiolite resting S PECT images acquired 45 minutes post injection. The patient received 0.4mg Lexiscan, 26.9 mCi Tc 99m Sestamibi - Stress images obtained [address] injection FINDINGS: Review of stress and rest SPECT images demonstrates fixed defect in the region of the cardiac apex an d lateral wall near its base. Decreased perfusion anterior lateral wall on the stress images compatib le with stress-induced ischemia. Probable attenuation artifact inferior wall. There is global hypokin esia. Estimated ejection fraction of 33%. IMPRESSION: 1. Stress-induced ischemia anterolateral wall. 2. Areas of remote insult as noted. Hypokinesia and diminished ejection fraction.
[2017-02-04] MEDS: ACETAMINOPHEN TAB 325 MG TAB PO PRN ×2 (13:41→23:45)
[2017-02-04] MEDS ORDERED: NITROGLYCERIN SL TABS 0.4 MG TAB SUBLINGUAL PRN (13:49)
[2017-02-04] MEDS ORDERED: ATORVASTATIN 80 MG TAB PO STA (13:49)
[2017-02-04] MEDS ORDERED: ALPRAZolam 0.25 MG TAB PO PRN (13:49)
[2017-02-04] MEDS ORDERED: ASPIRIN 325 MG TAB PO STA (13:49)
[2017-02-04] MEDS ORDERED: SODIUM CHLORIDE 0.9% 1,000 ML in EMPTY BAG 1 BAG IV ONE (13:49)
--- NOTE | 2017-02-04 13:57 | P.PN ---
Subjective This is a 71-year-old female one of my patient with a previous medical history significant for coronary artery disease status post coronary artery bypass graft with ischemic cardio myopathy and percutaneous coronary intervention and a total of 4 stents placement last one was put in the LAD back in November 2014, AICD placement, history of left subclavian stenosis status post stenting, carotid artery disease status post bilateral carotid endarterectomies , severe peripheral arterial occlusive disease, patient was recently seen by Dr. Amezcua at [facility], for possible revascularization of the left lower extremity, however patient underwent angiogram was not a candidate for any surgical intervention according to him and she was placed on Pletal 100 mg orally twice every day, patient was doing fine up until recently when she woke up but yesterday took her medication and developed to have a significant left sided chest pressure associated with increased diaphoresis at the same time she was quite hypotensive, she ended up coming to the ER at [facility] she was admitted to the hospital for evaluation she was seen in consultation by cardiology for further recommendation. 02/04: Patient was seen and evaluated today. Patient denies any further episodes of chest pain, and her blood pressure remains stable, she is not had any further episodes of hypotension. She was seen in consultation by Dr. Brady yesterday. Her EKG showed no evidence of any acute changes as compared to prior , cardiac enzymes have been negative so far. She is scheduled for echocardiogram with Doppler to assess LV function today and also a Lexiscan scan stress test today. Her A1c was noted to be 9.2%, Accu-Cheks have been elevated, Humalog increased to 7 units. Objective - Vital Signs Vital signs: Vital Signs Temp 96.8 F L 02/04/17 04:00 Pulse 84 02/04/17 04:00 Resp 18 02/04/17 04:00 BP 99/45 02/04/17 04:00 Pulse Ox 97 02/04/17 04:00 Intake & Output 02/03/17 02/04/17 02/04/17 18:59 06:59 18:59 Intake Total 420 600 Output Total 700 1 Balance -280 599 Weight 71.2 kg 71.6 kg Intake: IV 600 Sodium Chloride 0.9% 1, 600 000 ml @ 75 mls/hr IV . [id number] [facility] Rx#:[id number] Oral 420 Output: Urine 700 Urine/Stool Mix 1 Other: Voiding Method Toilet Toilet # Voids 2 - Exam - Constitutional General appearance: average body habitus, mild distress, no acute distress - EENT Eyes: anicteric sclerae, EOMI, PERRLA, no ptosis, no scleral icterus, normal appearance ENT: hearing grossly normal, NA/AT, normal oropharynx, no thrush Ears: bilateral: normal - Neck Neck: no lymphadenopathy, normal ROM, no rigidity, no stridor, no thyromegaly Carotids: bilateral: upstroke delayed - Respiratory Respiratory: bilateral: diminished, negative: dullness, rales, rhonchi, wheezing , prolonged expiration - Cardiovascular Rhythm: regular Heart sounds: normal: S1, S2 Abnormal Heart Sounds: systolic murmur, no rub, S3 Gallop, no click - Gastrointestinal General gastrointestinal: normal bowel sounds, soft, no splenomegaly, no tenderness, no umbilical hernia, no ventral hernia - Integumentary Integumentary: normal, normal turgor - Neurologic Neurologic: CNII-XII intact - Musculoskeletal Musculoskeletal: generalized weakness, strength equal bilaterally - Psychiatric Psychiatric: A&O x's 3, appropriate affect, intact judgment & insight - Labs CBC & Chem 7: 02/04/17 08:48 02/04/17 08:48 Labs: Abnormal Lab Results - Last 24 Hours (Table) 02/02/17 02/03/17 02/03/17 Range/Units 09:51 11:17 16:24 POC Glucose (mg/dL) 198 H 234 H (75-99) mg/dL Hemoglobin A1c 9.2 H (4.2-6.1) % 02/03/17 02/04/17 Range/Units 20:40 05:55 POC Glucose (mg/dL) 199 H 163 H (75-99) mg/dL Hemoglobin A1c (4.2-6.1) % Assessment and Plan Plan: 1. Chest discomfort and the patient with a prior history of CAD with ischemic cardiomyopathy and multiple PCI's including the last one in then LAD back in 2014 and left subclavian stenosis post intervention as well, patient will be admitted to the hospital, she will be kept on heparin drip for now continue aspirin 81 mg once every day, Plavix 75 mg orally once every day Lipitor 80 mg orally once every day, Coreg 25 mg orally twice every day. Cardiology is on consult, patient is scheduled for a Lexiscan stress test today. 2. CAD post CABG with ischemic cardiopathy post AICD. Continue treatment as in paragraph #1 3. Severe PAD post evaluation by vascular surgery. Continue Pletal 100 mg orally twice every day. 4. Carotid artery disease status post carotid endarterectomies. Continue with aspirin, Plavix, Lipitor for secondary prevention. 5. Ucontrolled diabetes mellitus type 2. Continue Lantus 51 units at bedtime, Humalog was increased to 7 units. Continue BGM before each meal and bedtime. A1c was 9.2. 6. Hypertension and hypertensive cardio vascular disease. Continue patient on Coreg 25 mg orally twice every day. 7. Hyperlipidemia. Continue patient on Lipitor 80 mg orally once every day. 8. History of left subclavian stenosis. Post stenting. Stable at this time. 9. Post polio. 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 10. History of GERD. Continue patient on Prevacid 30 mg orally once every day. 11. Vitamin D deficiency. Continue patient on vitamin D 1000 units once every day. 12. Depression. Continue Cymbalta 60 mg orally once every day. 13. DVT prophylaxis. Continue heparin drip. 14. GI prophylaxis. Continue PPI. 15. Admit to inpatient. Estimated length of stay 2 midnights. 16. Patient is full code. The above impression and plan of care have been discussed and directed by signing physician. Rosetta Whatley nurse practitioner acting as scribe for signing physician.
[2017-02-04 17:35] LABS: Glucose,Whole Blood 172 mg/dL (75-99)
--- NOTE | 2017-02-04 18:25 | ECHOF ---
Referral Reason:chest pain MEASUREMENTS -------- HEIGHT: 152.4 cm WEIGHT: 71.2 kg BP: 99/45 RVIDd: 2.2 cm (< 3.3) IVSd: 1.1 cm (0.6 - 1.1) LVIDd: 5.1 cm (3.9 - 5.3) LVPWd: 0.6 cm (0.6 - 1.1) IVSs: 1.4 cm LVIDs: 4.3 cm LVPWs: 0.8 cm LA Diam: 4.0 cm (2.7 - 3.8) LAESV Index (A-L): 34.91 ml/m Ao Diam: 2.7 cm (2.0 - 3.7) AV Cusp: 0.9 cm (1.5 - 2.6) LA Diam: 3.9 cm (2.7 - 3.8) MV EXCURSION: 19.089 mm (> 18.000) MV EF SLOPE: 62 mm/s (70 - 150) EPSS: 0.9 cm MV E Chauncey: 0.92 m/s MV DecT: 227 ms MV A Chauncey: 0.91 m/s MV E/A Ratio: 1.02 RAP: 5.00 mmHg RVSP: 19.30 mmHg FINDINGS -------- Paced rhythm. This was a technically adequate study. There is mild concentric left ventricular hypertrophy. Overall left ventricular systolic function is mild-moderately impaired with, an EF between 40 - 45 %. Mid posterior LV wall motion is akinetic. Mid inferior LV wall motion is akinetic. Posterior hypokinesis The right ventricle is normal in size. LA is moderately dilated 34-39 ml/m2 The right atrial size is normal. There is mild aortic valve sclerosis. There is no evidence of aortic regurgitation. Mild mitral annular calcification present. Mild mitral regurgitation is present. Mild tricuspid regurgitation present. There is no evidence of pulmonary hypertension. The right ventricular systolic pressure, as measured by Doppler, is 19.30mmHg. Trace/mild (physiologic) pulmonic regurgitation. The aortic root size is normal. There is no pericardial effusion. CONCLUSIONS -------- 1. There is mild concentric left ventricular hypertrophy. 2. There is no evidence of pulmonary hypertension. 3. The right ventricular systolic pressure, as measured by Doppler, is 19.30mmHg. 4. Trace/mild (physiologic) pulmonic regurgitation. 5. The aortic root size is normal. 6. There is no pericardial effusion. 7. Overall left ventricular systolic function is mild-moderately impaired with, an EF between 40 - 45 %. 8. Posterior hypokinesis 9. LA is moderately dilated 34-39 ml/m2 10. The right atrial size is normal. 11. There is mild aortic valve sclerosis. 12. Mild mitral annular calcification present. 13. Mild mitral regurgitation is present. 14. Mild tricuspid regurgitation present. DIE STAMPING PRESS OPERATOR: Alyssa Winter RDCS
--- NOTE | 2017-02-04 19:57 | EST ---
EXERCISE STRESS AGE: 71 SEX: Female HT: 60" WT: 157 lbs. PROTOCOL: Lexiscan Cardiolite STAGE: DURATION OF EXERCISE: HEART RATE REST: 76 BLOOD PRESSURE REST: 169/54 MAXIMUM HEART RATE ACHIEVED: 101 MAXIMUM BLOOD PRESSURE: 173/55 85% MPHR: 128 100% MPHR: 151 METS: INDICATIONS: Chest pain. CLINICAL INFORMATION: History of chest discomfort. Baseline heart rate 76 beats per minute. Baseline blood pressure 169/54 mmHg. Baseline 12-lead ECG shows sinus rhythm with a mildly prolonged [place] interval, narrow QRS, poor R-wave progression in the anterior and precordial leads. No definite ST-segment abnormalities. The patient received Lexiscan infusion per protocol. There was no definite ECG evidence for ischemia. No arrhythmias. Nuclear portion of the stress test will be reported separately. MMODL / IJN: [id number] /
[2017-02-04 20:48] LABS: Glucose,Whole Blood 213 mg/dL (75-99)
[2017-02-04] MEDS: INSULIN GLARGINE 100 UNIT/ML 10 ML VIAL SQ SCH (22:13)
[2017-02-04] MEDS: ALPRAZolam 0.5 MG TAB PO PRN (23:45)
[2017-02-05] MEDS ORDERED: ASPIRIN 325 MG TAB PO ONE (06:00)
[2017-02-05] MEDS ORDERED: ATORVASTATIN 80 MG TAB PO ONE (06:00)
[2017-02-05] MEDS: ATORVASTATIN 40 MG TAB PO SCH (06:06)
[2017-02-05] MEDS: ASPIRIN 81 MG PO SCH (06:06)
[2017-02-05 06:09] LABS: Glucose,Whole Blood 145 mg/dL (75-99)
[2017-02-05] MEDS: CARVEDILOL 12.5 MG TAB PO SCH ×2 (06:28→16:53)
[2017-02-05] MEDS: CLOPIDOGREL 75 MG TAB PO SCH (06:28)
[2017-02-05] MEDS: CALCIUM CARB-VIT D 500MG-200UN 1 EACH TAB PO SCH ×2 (06:28→16:53)
[2017-02-05] MEDS: DULoxetine HCL 60 MG CAPSULE.DR PO SCH (06:28)
[2017-02-05] MEDS: INSULIN LISPRO (humaLOG) 300 UNIT/3 ML VIAL SQ SCH ×7 (06:28→21:39)
[2017-02-05] MEDS: CILOSTAZOL 100 MG TAB PO SCH ×2 (06:28→21:57)
[2017-02-05] MEDS: SODIUM CHLORIDE 0.9% 1,000 ML IV SCH ×2 (06:29→11:17)
[2017-02-05] MEDS: CHOLECALCIFEROL 1,000 UNIT TAB PO SCH (09:05)
[2017-02-05] MEDS: PANTOPRAZOLE 40 MG TABLET PO SCH (09:05)
[2017-02-05] MEDS ORDERED: MIDAZOLAM 2 MG/2 ML VIAL IV ONE (11:25)
[2017-02-05] MEDS ORDERED: LIDOCAINE 2% INJ 20 MG/ML SQ ONE (11:27)
[2017-02-05] MEDS: VERAPAMIL SYRINGE (5 MG/10 ML) INTRAARTER ONE ×2 (11:28→12:19)
[2017-02-05] MEDS: HYDROmorphone 2 MG/ML 1 ML SYRINGE IV ONE ×2 (11:44→11:57)
[2017-02-05] MEDS ORDERED: IODIXANOL 320 MG/ML 100 ML INTRAARTER ONE (12:19)
[2017-02-05] MEDS ORDERED: RX INFO: IV CONTRAST WAS GIVEN 1 EACH MISC MISCELLANE PRN (12:27)
--- NOTE | 2017-02-05 12:27 | P.PN ---
Subjective This is a 71-year-old female one of my patient with a previous medical history significant for coronary artery disease status post coronary artery bypass graft with ischemic cardio myopathy and percutaneous coronary intervention and a total of 4 stents placement last one was put in the LAD back in November 2014, AICD placement, history of left subclavian stenosis status post stenting, carotid artery disease status post bilateral carotid endarterectomies , severe peripheral arterial occlusive disease, patient was recently seen by Dr. Amezcua at [facility], for possible revascularization of the left lower extremity, however patient underwent angiogram was not a candidate for any surgical intervention according to him and she was placed on Pletal 100 mg orally twice every day, patient was doing fine up until recently when she woke up but yesterday took her medication and developed to have a significant left sided chest pressure associated with increased diaphoresis at the same time she was quite hypotensive, she ended up coming to the ER at [facility] she was admitted to the hospital for evaluation she was seen in consultation by cardiology for further recommendation. 02/04: Patient was seen and evaluated today. Patient denies any further episodes of chest pain, and her blood pressure remains stable, she is not had any further episodes of hypotension. She was seen in consultation by Dr. Brady yesterday. Her EKG showed no evidence of any acute changes as compared to prior , cardiac enzymes have been negative so far. She is scheduled for echocardiogram with Doppler to assess LV function today and also a Lexiscan scan stress test today. Her A1c was noted to be 9.2%, Accu-Cheks have been elevated, Humalog increased to 7 units. 02/05: Lexiscan stress test showed stress-induced ischemia and anterior lateral wall. Areas of remote insult as noted. Hypokinesia and diminished ejection fraction. Echocardiogram reveals mild concentric left ventricular hypertrophy, EF 40-45%, posterior hypokinesia, elevated moderately dilated 34-39, mild mitral regurgitation, mild tricuspid regurgitation. Patient is scheduled for heart catheterization this afternoon. She denies any chest pain at this time. She does states she has shortness of breath with activity.. Her blood glucoses are running between 145 and 213. Patient is currently on Lantus 51 units at bedtime and Humalog scheduled 7 units with meals and scale. Objective - Vital Signs Vital signs: Vital Signs Temp 97 F L 02/05/17 04:00 Pulse 84 02/05/17 04:00 Resp 18 02/05/17 04:00 BP 113/50 02/05/17 04:00 Pulse Ox 96 02/05/17 04:00 Intake & Output 02/04/17 02/05/17 02/05/17 18:59 06:59 18:59 Intake Total 360 600 Balance 360 600 Weight 71.214 kg 71.1 kg Intake: IV 600 Sodium Chloride 0.9% 1, 600 000 ml @ 75 mls/hr IV . [id number] [facility] Rx#:[id number] Oral 360 Other: Voiding Method Toilet Toilet # Voids 2 1 - Exam General appearance: average body habitus, mild distress, no acute distress - EENT Eyes: anicteric sclerae, EOMI, PERRLA, no ptosis, no scleral icterus, normal appearance ENT: hearing grossly normal, NA/AT, normal oropharynx, no thrush Ears: bilateral: normal - Neck Neck: no lymphadenopathy, normal ROM, no rigidity, no stridor, no thyromegaly Carotids: bilateral: upstroke delayed - Respiratory Respiratory: bilateral: diminished, negative: dullness, rales, rhonchi, wheezing , prolonged expiration - Cardiovascular Rhythm: regular Heart sounds: normal: S1, S2 Abnormal Heart Sounds: systolic murmur, no rub, S3 Gallop, no click - Gastrointestinal General gastrointestinal: normal bowel sounds, soft, no splenomegaly, no tenderness, no umbilical hernia, no ventral hernia - Integumentary Integumentary: normal, normal turgor - Neurologic Neurologic: CNII-XII intact - Musculoskeletal Musculoskeletal: generalized weakness, strength equal bilaterally - Psychiatric Psychiatric: A&O x's 3, appropriate affect, intact judgment & insight - Labs CBC & Chem 7: 02/04/17 08:48 02/04/17 08:48 Labs: Abnormal Lab Results - Last 24 Hours (Table) 02/04/17 02/04/17 02/04/17 Range/Units 08:48 08:48 12:31 RBC 3.63 L (3.80-5.40) m/uL Hgb 10.4 L (11.4-16.0) gm/dL Hct 31.0 L (34.0-46.0) % Chloride 109 H (98-107) mmol/L Carbon Dioxide 21 L (22-30) mmol/L Glucose 144 H (74-99) mg/dL POC Glucose (mg/dL) 147 H (75-99) mg/dL Magnesium 1.3 L (1.6-2.3) mg/dL Total Protein 5.9 L (6.3-8.2) g/dL 02/04/17 02/04/17 02/05/17 Range/Units 17:32 20:46 06:07 RBC (3.80-5.40) m/uL Hgb (11.4-16.0) gm/dL Hct (34.0-46.0) % Chloride (98-107) mmol/L Carbon Dioxide (22-30) mmol/L Glucose (74-99) mg/dL POC Glucose (mg/dL) 172 H 213 H 145 H (75-99) mg/dL Magnesium (1.6-2.3) mg/dL Total Protein (6.3-8.2) g/dL Assessment and Plan Plan: 1. Chest discomfort and the patient with a prior history of CAD with ischemic cardiomyopathy and multiple PCI's including the last one in then LAD back in 2014 and left subclavian stenosis post intervention as well, continue aspirin 81 mg once every day, Plavix 75 mg orally once every day Lipitor 80 mg orally once every day, Coreg 25 mg orally twice every day. Cardiology is on consult, heart catheterization today. 2. CAD post CABG with ischemic cardiopathy post AICD. Continue treatment as in paragraph #1 3. Severe PAD post evaluation by vascular surgery. Continue Pletal 100 mg orally twice every day. 4. Carotid artery disease status post carotid endarterectomies. Continue with aspirin, Plavix, Lipitor for secondary prevention. 5. Ucontrolled diabetes mellitus type 2. Continue Lantus 51 units at bedtime, Humalog was increased to 7 units. Continue BGM before each meal and bedtime. A1c was 9.2. 6. Hypertension and hypertensive cardio vascular disease. Continue patient on Coreg 25 mg orally twice every day. 7. Hyperlipidemia. Continue patient on Lipitor 80 mg orally once every day. 8. History of left subclavian stenosis. Post stenting. Stable at this time. 9. Post polio. 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 10. History of GERD. Continue patient on Prevacid 30 mg orally once every day. 11. Vitamin D deficiency. Continue patient on vitamin D 1000 units once every day. 12. Depression. Continue Cymbalta 60 mg orally once every day. 13. DVT prophylaxis. Continue heparin drip. 14. GI prophylaxis. Continue PPI. 15. Admit to inpatient. Estimated length of stay 2 midnights. 16. Patient is full code. Discharge plan: Return home Impression and plan of care have been directed as dictated by the signing physician. Edie Martinez nurse practitioner acting as scribe for signing physician.
[2017-02-05] MEDS ORDERED: SODIUM CHLORIDE 0.9% 1,000 ML IV SCH (12:30)
[2017-02-05] MEDS: ACETAMINOPHEN TAB 325 MG TAB PO PRN ×2 (16:52→21:58)
[2017-02-05 17:16] LABS: Glucose,Whole Blood 171 mg/dL (75-99)
--- NOTE | 2017-02-05 18:08 | CC ---
CARDIAC CATHETERIZATION REPORT DATE OF PROCEDURE: 02/05/2017. PERFORMING PHYSICIAN: Jean Pierre Lizama M.D., finishing room operator. PROCEDURES PERFORMED: 1. Selective left and right coronary angiogram. 2. SVG to RCA angiogram. 3. Left internal mammary artery angiogram. 4. Abdominal aortogram. 5. Bilateral iliac artery angiogram. INDICATION: This is a pleasant 71-year-old female patient who used to see Dr. Yonatan Carpio in the past with a known history of coronary artery disease. Her last heart catheterization in 2014 showed severe left and right coronary systems with patent HA to LAD and patent SVG to RCA. She presented to the hospital with chest discomfort and underwent myocardial perfusion imaging stress test that showed apical ischemia. In view of that, she was scheduled to undergo a heart catheterization. Please note that the patient also was noted to have severe PAD with severe infrarenal aortic disease. APPROACH: Left radial artery. COMPLICATIONS: None. LEVEL OF SEDATION: Moderate with sedation length of 57 minutes. PROCEDURE DESCRIPTION: After obtaining informed consent, the patient was brought to the cardiac blood bank laboratory technologist. The left radial artery was cannulated using micropuncture technique and ultrasound guidance. The micropuncture wire passed easily. Then I placed a 6-Ecuadorean sheath in the left radial artery. Subsequently I did selective left and right coronary angiogram using JL3.5 and JR4 catheters. After that, I did SVG to RCA angiogram using multipurpose catheter. The HA to LAD angiogram was performed using the IM catheter. After that, I did an abdominal aortogram and bilateral iliac artery angiogram using a pigtail catheter as well as a multipurpose catheter. The procedure was completed without any complication. SELECTIVE CORONARY ANGIOGRAM: 1. The left main is angiographically normal. 2. The left circumflex is chronically occluded in the proximal portion. 3. The LAD is chronically occluded in the proximal portion. 4. The RCA is chronically occluded by the ostium. CORONARY BYPASS ANGIOGRAM: 1. HA to LAD is patent. 2. The SVG to RCA is patent. SELECTIVE PERIPHERAL ANGIOGRAM: 1. The infrarenal aorta has critical disease and seems to be subtotally occluded. 2. Common iliac arteries. The left common iliac artery has mild disease only and the right common iliac artery is occluded. 3. External iliac arteries. The right external iliac artery is occluded and the left external iliac artery appeared to be patent. CONCLUSION: 1. Severe triple-vessel coronary artery disease. 2. Patent HA to LAD. 3. Patent SVG to RCA. 4. The SVG to left circumflex is known to be occluded in the past. 5. Severe peripheral arterial disease with severe infrarenal aortic disease and severe bilateral iliac disease. POSTPROCEDURE MANAGEMENT: 1. Maximize medical treatment. 2. Follow up with the patient. MMODL / IJN: [id number] /
[2017-02-05 21:44] LABS: Glucose,Whole Blood 94 mg/dL (75-99)
[2017-02-05] MEDS: INSULIN GLARGINE 100 UNIT/ML 10 ML VIAL SQ SCH (21:57)
[2017-02-05] MEDS: ALPRAZolam 0.5 MG TAB PO PRN (21:57)
[2017-02-06] MEDS: SODIUM CHLORIDE 0.9% 1,000 ML IV SCH (05:02)
[2017-02-06 05:33] VITALS: RESP 18
[2017-02-06 06:03] LABS: Glucose,Whole Blood 131 mg/dL (75-99)
[2017-02-06] MEDS: CARVEDILOL 12.5 MG TAB PO SCH (06:40)
[2017-02-06] MEDS: CALCIUM CARB-VIT D 500MG-200UN 1 EACH TAB PO SCH (06:40)
[2017-02-06] MEDS: PANTOPRAZOLE 40 MG TABLET PO SCH (06:40)
[2017-02-06] MEDS: INSULIN LISPRO (humaLOG) 300 UNIT/3 ML VIAL SQ SCH ×2 (06:54)
[2017-02-06 06:58] LABS: CH 29.6; CHCM 33.8; HCT 30.7 % (34.0-46.0); HGB 10.1 gm/dL (11.4-16.0); MCH 28.8 pg (25.0-35.0); MCHC 32.8 g/dL (31.0-37.0); Mean Platelet Volume 8.6; RBC 3.49 m/uL (3.80-5.40); RDW 15.7 % (11.5-15.5); WBC 5.3 k/uL (3.8-10.6)
[2017-02-06 07:13] LABS: Anion Gap 9 mmol/L; Blood Urea Nitrogen 13 mg/dL (7-17); Calcium 9.4 mg/dL (8.4-10.2); Carbon Dioxide 23 mmol/L (22-30); Chloride 108 mmol/L (98-107); Glucose 123 mg/dL (74-99); Non-African American GFR(MDRD) >60 (>60 ml/min/1.73 sqM); Potassium 4.5 mmol/L (3.5-5.1); Sodium 140 mmol/L (137-145)
[2017-02-06] MEDS: CHOLECALCIFEROL 1,000 UNIT TAB PO SCH (09:27)
[2017-02-06] MEDS: CILOSTAZOL 100 MG TAB PO SCH (09:28)
[2017-02-06] MEDS: ATORVASTATIN 40 MG TAB PO SCH (09:28)
[2017-02-06] MEDS: CLOPIDOGREL 75 MG TAB PO SCH (09:28)
[2017-02-06] MEDS: ASPIRIN 81 MG PO SCH (09:28)
[2017-02-06] MEDS: DULoxetine HCL 60 MG CAPSULE.DR PO SCH (09:28)
[2017-02-06] MEDS ORDERED: ISOSORBIDE MONONITRATE ER 30 MG TAB.ER.24H PO SCH (09:30)
[2017-02-06 10:05] VITALS: BP 118/55; PULSE 86; TEMP 97
[2017-02-06 11:41] LABS: Glucose,Whole Blood 168 mg/dL (75-99)
--- NOTE | 2017-02-07 14:07 | P.DS ---
Providers Date of admission: 02/02/17 15:10 Expected date of discharge: 02/06/17 Attending physician: Adriana Lewis Consults: 02/02/17 17:03 Consult Physician Routine Consulting Provider: Jean Pierre Lizama Consult Reason/Comments: Chest Pain Do you want consulting provider notified?: Yes [facility] Course: This is a 71-year-old female one of my patient with a previous medical history significant for coronary artery disease status post coronary artery bypass graft with ischemic cardio myopathy and percutaneous coronary intervention and a total of 4 stents placement last one was put in the LAD back in November 2014, AICD placement, history of left subclavian stenosis status post stenting, carotid artery disease status post bilateral carotid endarterectomies , severe peripheral arterial occlusive disease, patient was recently seen by Dr. Amezcua at [facility], for possible revascularization of the left lower extremity, however patient underwent angiogram was not a candidate for any surgical intervention according to him and she was placed on Pletal 100 mg orally twice every day, patient was doing fine up until recently when she woke up but yesterday took her medication and developed to have a significant left sided chest pressure associated with increased diaphoresis at the same time she was quite hypotensive, she ended up coming to the ER at [facility] she was admitted to the hospital for evaluation she was seen in consultation by cardiology for further recommendation. 02/04: Patient was seen and evaluated today. Patient denies any further episodes of chest pain, and her blood pressure remains stable, she is not had any further episodes of hypotension. She was seen in consultation by Dr. Brady yesterday. Her EKG showed no evidence of any acute changes as compared to prior , cardiac enzymes have been negative so far. She is scheduled for echocardiogram with Doppler to assess LV function today and also a Lexiscan scan stress test today. Her A1c was noted to be 9.2%, Accu-Cheks have been elevated, Humalog increased to 7 units. 02/05: Lexiscan stress test showed stress-induced ischemia and anterior lateral wall. Areas of remote insult as noted. Hypokinesia and diminished ejection fraction. Echocardiogram reveals mild concentric left ventricular hypertrophy, EF 40-45%, posterior hypokinesia, elevated moderately dilated 34-39, mild mitral regurgitation, mild tricuspid regurgitation. Patient is scheduled for heart catheterization this afternoon. She denies any chest pain at this time. She does states she has shortness of breath with activity.. Her blood glucoses are running between 145 and 213. Patient is currently on Lantus 51 units at bedtime and Humalog scheduled 7 units with meals and scale. 02/06: Patient has been cleared by mechanical designer for discharge home. Patient is on Imdur 60 mg daily which is not on her home medication list. Insulin dosing is slightly different from home. Patient will be discharged home today in stable condition. Discharge diagnoses: 1. Chest discomfort and the patient with a prior history of CAD with ischemic cardiomyopathy and multiple PCI's including the last one in then LAD back in 2014 and left subclavian stenosis post intervention as well 2. CAD post CABG with ischemic cardiopathy post AICD. 3. Severe PAD post evaluation by vascular surgery. 4. Carotid artery disease status post carotid endarterectomies. 5. Ucontrolled diabetes mellitus type 2. 6. Hypertension and hypertensive cardio vascular disease. 7. Hyperlipidemia. 8. History of left subclavian stenosis. Post stenting. Stable at this time. 9. Post polio. 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 10. History of GERD. 11. Vitamin D deficiency. 12. Depression, recurrent. Discharge plan: Return home Impression and plan of care have been directed as dictated by the signing physician. Edie Martinez nurse practitioner acting as scribe for signing physician. Patient Condition at Discharge: Good Plan - Discharge Summary New Discharge Prescriptions: New INSULIN LISPRO (humaLOG) [humaLOG (formulary)] 7 unit SQ AC-TID vial INSULIN LISPRO (humaLOG) [humaLOG (formulary)] 0 unit SQ ACHS vial Isosorbide Mononitrate ER [Imdur] 60 mg PO DAILY tab Magnesium Oxide 400 mg PO DAILY #30 tablet Continue Calcium Carbonate/Vitamin D3 [Calcium 600-Vit D3 400 Tablet] 1 tab PO BID Insulin Glargine [Lantus] 51 unit SQ HS Clopidogrel [Plavix] 75 mg PO DAILY Ubidecarenone [Co Q-10] 100 mg PO DAILY Atorvastatin [Lipitor] 40 mg PO DAILY Lansoprazole [Prevacid] 30 mg PO DAILY Cilostazol [Pletal] 100 mg PO BID DULoxetine HCL [Cymbalta] 60 mg PO DAILY Cholecalciferol [Vitamin D3] 1,000 unit PO DAILY Carvedilol 25 mg PO BID Aspirin [Adult Low Dose Aspirin EC] 81 mg PO DAILY Discharge Medication List Calcium Carbonate/Vitamin D3 [Calcium 600-Vit D3 400 Tablet] 1 tab PO BID [History] Insulin Glargine [Lantus] 51 unit SQ HS 08/08/14 [History] Clopidogrel [Plavix] 75 mg PO DAILY 11/22/14 [History] Atorvastatin [Lipitor] 40 mg PO DAILY 11/26/16 [History] Ubidecarenone [Co Q-10] 100 mg PO DAILY 11/26/16 [History] Aspirin [Adult Low Dose Aspirin EC] 81 mg PO DAILY 02/02/17 [History] Carvedilol 25 mg PO BID 02/02/17 [History] Cholecalciferol [Vitamin D3] 1,000 unit PO DAILY 02/02/17 [History] Cilostazol [Pletal] 100 mg PO BID 02/02/17 [History] DULoxetine HCL [Cymbalta] 60 mg PO DAILY 02/02/17 [History] Lansoprazole [Prevacid] 30 mg PO DAILY 02/02/17 [History] INSULIN LISPRO (humaLOG) [humaLOG (formulary)] 0 unit SQ ACHS vial 02/06/17 [Rx ] INSULIN LISPRO (humaLOG) [humaLOG (formulary)] 7 unit SQ AC-TID vial 02/06/17 [ Rx] Isosorbide Mononitrate ER [Imdur] 60 mg PO DAILY tab 02/06/17 [Rx] Magnesium Oxide 400 mg PO DAILY #30 tablet 02/06/17 [Rx] Follow up Appointment(s)/Referral(s): Vladimir Azul MD [Primary Care Provider] - 02/11/17 3:30 pm Jean Pierre Lizama MD [STAFF PHYSICIAN] - 02/11/17 3:00 pm Patient Instructions/Handouts: *Surgery [facility] - After Heart Catheterization - Pediatric Psychiatrist Instructions, Hypotension (DC), Hypomagnesemia (DC), Diabetic Hyperglycemia (DC) Discharge Disposition: HOME SELF-CARE
== END 2017-02-06 11:48 | disposition home or self-care (01) | DRG 287 ==
LOC: EC 09:24 → 6SEL 15:10
PROVIDERS: ADMIT Internal Medicine; ATTEND Internal Medicine
PROC: B2181ZZ Fluoroscopy of Left Internal Mammary Bypass Graft using Low Osmolar Contrast (ICD-10-PCS; principal; 2017-02-05 11:00)
PROC: B41D1ZZ Fluoroscopy of Aorta and Bilateral Lower Extremity Arteries using Low Osmolar Contrast (ICD-10-PCS; principal; 2017-02-05 11:00)
PROC: B2121ZZ Fluoroscopy of Single Coronary Artery Bypass Graft using Low Osmolar Contrast (ICD-10-PCS; principal; 2017-02-05 11:00)
PROC: B2111ZZ Fluoroscopy of Multiple Coronary Arteries using Low Osmolar Contrast (ICD-10-PCS; principal; 2017-02-05 11:00)
DX: I25.10 Atherosclerotic heart disease of native coronary artery without angina pectoris (principal); I11.0 Hypertensive heart disease with heart failure; I50.9 Heart failure, unspecified; E11.65 Type 2 diabetes mellitus with hyperglycemia; I70.1 Atherosclerosis of renal artery; I70.203 Unspecified atherosclerosis of native arteries of extremities, bilateral legs; I70.0 Atherosclerosis of aorta; E55.9 Vitamin D deficiency, unspecified; E78.5 Hyperlipidemia, unspecified; E86.0 Dehydration; F32.9 Major depressive disorder, single episode, unspecified; F41.9 Anxiety disorder, unspecified; I08.1 Rheumatic disorders of both mitral and tricuspid valves; I25.2 Old myocardial infarction; I25.5 Ischemic cardiomyopathy; K21.9 Gastro-esophageal reflux disease without esophagitis; Z79.02 Long term (current) use of antithrombotics/antiplatelets; Z79.4 Long term (current) use of insulin; Z79.82 Long term (current) use of aspirin; Z79.899 Other long term (current) drug therapy; Z80.8 Family history of malignant neoplasm of other organs or systems; Z82.49 Family history of ischemic heart disease and other diseases of the circulatory system; Z86.73 Personal history of transient ischemic attack (TIA), and cerebral infarction without residual deficits; Z95.1 Presence of aortocoronary bypass graft; Z95.810 Presence of automatic (implantable) cardiac defibrillator; Z95.5 Presence of coronary angioplasty implant and graft; Z88.5 Allergy status to narcotic agent; Z91.040 Latex allergy status
CPT/HCPCS: 36200; 36415; 71020; 75625; 75716; 78452; 80048; 80053; 81003; 82009; 82150; 82533; 82550; 82553; 83036; 83690; 83735; 84484; 85025; 85027; 85610; 93005; 93017; 93306; 93459; 96361; 96365; 96366; 96375; 99285

== ENCOUNTER 2017-06-24 07:18 | Day surgery (SDC) | payer MEDICARE, OTHER ==
[~2017-06-24 07:18] MED LIST: DEXAMETHASONE SOD PHOSPHATE 10 MG/ML 1 ML VIAL IV ONE; LACTATED RINGERS 1,000 ML IV SCH; LIDOCAINE 1% 20 ML VIAL (10MG/ML) FOR IV START INTRADERMA PRN; ONDANSETRON 4 MG/2 ML VIAL IVP ONE
[2017-06-24] MEDS: PHENYLEPHRINE 10% OPHTH DROPS 5 ML BTL OP ONE ×3 (07:45→08:03)
[2017-06-24] MEDS: CYCLOPENTOLATE 1% OPHTH SOLN 2 ML BTL OP ONE ×3 (07:48→08:06)
[2017-06-24] MEDS: FLURBIPROFEN 0.03% OPHTH DROPS 2.5 ML BTL OP ONE ×3 (07:51→08:09)
[2017-06-24 08:13] VITALS: TEMP 97.3
[2017-06-24] MEDS ORDERED: INSULIN ASPART 100 UNIT/ML 1 ML 10 ML VIAL SQ ONE (08:22)
[2017-06-24 08:41] LABS: Glucose,Whole Blood 311 mg/dL (75-99)
[2017-06-24] MEDS ORDERED: PROPOFOL 10 MG/ML 20 ML VIAL IV ONE (08:42)
[2017-06-24] MEDS ORDERED: BALANCED SALT IRRIG SOLN COMB2 15 ML IRRIG.SOLN INTRAOCULA ONE (08:51)
[2017-06-24] MEDS ORDERED: NEOMYCIN-POLYMYXIN-DEXAMETH OINT 3.5 GM TUBE LEFT EYE ONE (08:51)
[2017-06-24] MEDS ORDERED: HYALURONATE SODIUM INTRAOCULAR 1 EACH SYRINGE (10MG/ML) INTRAOCULA ONE (08:52)
[2017-06-24] MEDS ORDERED: EPINEPHrine (PF) 0.5 ML in BALANCED SALT IRRIG SOLN COMB2 500 ML IRRIGATION ONE (08:57)
--- NOTE | 2017-06-24 09:10 | P.OP ---
Date of Procedure: 06/24/17 Procedure(s) Performed: PREOPERATIVE DIAGNOSIS: Cataract, left eye. POSTOPERATIVE DIAGNOSIS: Cataract, left eye. OPERATION: Phacoemulsification cataract, left eye. DESCRIPTION OF PROCEDURE: The patient was taken to the preoperative holding area. Intravenous Propofol was given so as to bring about adequate sedation. The following mixture was given for local anesthesia: 5 mL of 2% lidocaine, 5 mL of 0.75% Marcaine, and 1 mL of Wydase. Approximately 4 mL was injected in the retrobulbar space of the surgical eye. Additional 1 mL was then directed to the temporal area of the surgical eye. This was performed to allow adequate neurological block of the facial muscles. The patient was revived and then taken into the operative room. The patient was prepped and draped in the usual sterile manner for the operative eye. A lid speculum was put into position. The conjunctiva was resected back from the limbus in the 12 o'clock position. Bleeding was controlled with electrocautery. A #69 blade was then used and a half-thickness scleral incision approximately 1-mm posterior to the limbus was made on bare sclera. This was shelved in the clear cornea using a crescent knife. Next a 15-degree blade was used to make a stab incision at the 3 o' clock position at the corneolimbal interface. Keratome blade was then used and the superior wound was extended into the anterior chamber. Viscoelastic was injected into the anterior chamber and to maintain its form. Next, a cystotome was used and a continuous anterior capsulotomy was made without difficulty. Hydrodissection using a blunt cannula and BSS was performed. Phaco probe was then employed and a groove extending from 12 to 6 o'clock in the lens was created. A Antione wand was used through the stab incision so as to perform a divide and conquer technique. Next an irrigation aspiration probe was utilized and any residual cortex was removed from the eye. Again, viscoelastic was injected into the anterior chamber. An Elier Restor 2.5 posterior chamber lens implant was placed in the cartridge and injected into the anterior chamber without difficulty. The Sinskey hook was utilized to spin the lens into position and this was again performed without any difficulty. The irrigation and aspiration probe was again employed and any residual viscoelastic was removed from the eye. Then BSS was injected into the limbal stab incision and the anterior chamber re-inflated. The conjunctiva was reapproximated using electrocautery. One drop of 0.25% Timoptic was placed over the corneal along with TobraDex ophthalmic ointment. Two sterile patches and a [place] eye shield were taped into position. The patient was transported to the recovery room in stable condition. Pathology: none sent Condition: stable Disposition: same day
[2017-06-24 09:39] VITALS: BP 187/70; PULSE 62; RESP 18
[2017-06-24] MEDS ORDERED: BUPIVACAINE (PF) 0.75% 5 ML, HYALURONIDASE, HUMAN RECOMB 150 UNIT, LIDOCAINE 2% (PF) 10... MISCELLANE ONE ×3 (23:00)
[2017-06-24] MEDS ORDERED: GENTAMICIN/PREDNISOL AC OPHTH OINT 3.5GM OPHTHALMIC ONE (23:00)
[2017-06-24] MEDS ORDERED: TIMOLOL 0.5% OPHTH DROPS 5 ML BTL OP ONE (23:00)
== END 2017-06-24 09:45 | disposition home or self-care (01) ==
LOC: OR 07:18
PROVIDERS: ATTEND Ophthalmology
DX: E11.36 Type 2 diabetes mellitus with diabetic cataract (principal); M19.90 Unspecified osteoarthritis, unspecified site; K21.9 Gastro-esophageal reflux disease without esophagitis; I25.10 Atherosclerotic heart disease of native coronary artery without angina pectoris; I11.0 Hypertensive heart disease with heart failure; I50.9 Heart failure, unspecified; Z95.810 Presence of automatic (implantable) cardiac defibrillator; Z95.1 Presence of aortocoronary bypass graft; Z88.5 Allergy status to narcotic agent; Z88.8 Allergy status to other drugs, medicaments and biological substances; Z91.040 Latex allergy status; Z91.048 Other nonmedicinal substance allergy status; Z86.73 Personal history of transient ischemic attack (TIA), and cerebral infarction without residual deficits; Z79.02 Long term (current) use of antithrombotics/antiplatelets; Z79.4 Long term (current) use of insulin; Z79.82 Long term (current) use of aspirin; Z79.899 Other long term (current) drug therapy; Z95.5 Presence of coronary angioplasty implant and graft
CPT/HCPCS: 66984; V2632; V2788; J3470; J2001; J0171; J2704

== ENCOUNTER 2017-08-05 06:52 | Day surgery (SDC) | payer MEDICARE, OTHER ==
[~2017-08-05 06:52] MED LIST changes: -DEXAMETHASONE SOD PHOSPHATE 10 MG/ML 1 ML VIAL IV ONE
[2017-08-05] MEDS: PHENYLEPHRINE 10% OPHTH DROPS 5 ML BTL OP ONE ×3 (07:17→07:35)
[2017-08-05] MEDS: CYCLOPENTOLATE 1% OPHTH SOLN 2 ML BTL OP ONE ×2 (07:20→07:29)
[2017-08-05] MEDS: FLURBIPROFEN 0.03% OPHTH DROPS 2.5 ML BTL OP ONE ×2 (07:23→07:32)
[2017-08-05 07:31] VITALS: RESP 16; TEMP 97.7
[2017-08-05 07:35] LABS: Glucose,Whole Blood 109 mg/dL (75-99)
[2017-08-05] MEDS ORDERED: LIDOCAINE 1% INJ 10MG/ML (20 ML MDV) ONE (08:29)
[2017-08-05] MEDS ORDERED: PROPOFOL 10 MG/ML 20 ML VIAL IV ONE (08:29)
[2017-08-05] MEDS ORDERED: TETRACAINE 0.5% OPHTH (PF) DROPS 4 ML BTL RIGHT EYE ONE (08:30)
[2017-08-05] MEDS ORDERED: EPINEPHrine (PF) 0.5 ML in BALANCED SALT IRRIG SOLN COMB2 500 ML IRRIGATION ONE (08:31)
[2017-08-05] MEDS ORDERED: BALANCED SALT IRRIG SOLN COMB2 15 ML IRRIG.SOLN INTRAOCULA ONE (08:37)
[2017-08-05] MEDS ORDERED: HYALURONATE SODIUM INTRAOCULAR 1 EACH SYRINGE (10MG/ML) INTRAOCULA ONE (08:37)
--- NOTE | 2017-08-05 09:00 | P.OP ---
Date of Procedure: 08/05/17 Procedure(s) Performed: PREOPERATIVE DIAGNOSIS: Cataract, right eye. POSTOPERATIVE DIAGNOSIS: Cataract, right eye. OPERATION: Phacoemulsification cataract, right eye. DESCRIPTION OF PROCEDURE: The patient was taken to the preoperative holding area. Intravenous Propofol was given so as to bring about adequate sedation. The following mixture was given for local anesthesia: 5 mL of 2% lidocaine, 5 mL of 0.75% Marcaine, and 1 mL of Wydase. Approximately 4 mL was injected in the retrobulbar space of the surgical eye. Additional 1 mL was then directed to the temporal area of the surgical eye. This was performed to allow adequate neurological block of the facial muscles. The patient was revived and then taken into the operative room. The patient was prepped and draped in the usual sterile manner for the operative eye. A lid speculum was put into position. The conjunctiva was resected back from the limbus in the 12 o'clock position. Bleeding was controlled with electrocautery. A #69 blade was then used and a half-thickness scleral incision approximately 1-mm posterior to the limbus was made on bare sclera. This was shelved in the clear cornea using a crescent knife. The steep axis of astigmatism was marked using a pre-inked corneal marking device. Next a 15-degree blade was used to make a stab incision at the 3 o'clock position at the corneolimbal interface. Keratome blade was then used and the superior wound was extended into the anterior chamber. Viscoelastic was injected into the anterior chamber and to maintain its form. Next, a cystotome was used and a continuous anterior capsulotomy was made without difficulty. Hydrodissection using a blunt cannula and BSS was performed. Phaco probe was then employed and a groove extending from 12 to 6 o' clock in the lens was created. A Antione wand was used through the stab incision so as to perform a divide and conquer technique. Next an irrigation aspiration probe was utilized and any residual cortex was removed from the eye. Again, viscoelastic was injected into the anterior chamber. An RAUDEL Symfony toric posterior chamber lens implant was placed in the cartridge and injected into the anterior chamber without difficulty. The Sinskey hook was utilized to spin the lens into position and this was again performed without any difficulty. The irrigation and aspiration probe was again employed and any residual viscoelastic was removed from the eye. Then BSS was injected into the limbal stab incision and the anterior chamber re-inflated. The conjunctiva was reapproximated using electrocautery. One drop of 0.25% Timoptic was placed over the corneal along with TobraDex ophthalmic ointment. Two sterile patches and a [place] eye shield were taped into position. The patient was transported to the recovery room in stable condition. Pathology: none sent Condition: stable Disposition: same day
[2017-08-05 09:09] LABS: Glucose,Whole Blood 108 mg/dL (75-99)
[2017-08-05 09:23] VITALS: BP 186/66; PULSE 73
[2017-08-05] MEDS ORDERED: GENTAMICIN/PREDNISOL AC OPHTH OINT 3.5GM OPHTHALMIC ONE (23:00)
[2017-08-05] MEDS ORDERED: TIMOLOL 0.5% OPHTH DROPS 5 ML BTL OP ONE (23:00)
[2017-08-05] MEDS ORDERED: BUPIVACAINE (PF) 0.75% 5 ML, HYALURONIDASE, HUMAN RECOMB 150 UNIT, LIDOCAINE 2% (PF) 10... MISCELLANE ONE ×3 (23:00)
== END 2017-08-05 09:35 | disposition home or self-care (01) ==
LOC: OR 06:52
PROVIDERS: ATTEND Ophthalmology
DX: E11.36 Type 2 diabetes mellitus with diabetic cataract (principal); I10 Essential (primary) hypertension; M19.90 Unspecified osteoarthritis, unspecified site; Z95.1 Presence of aortocoronary bypass graft; Z95.810 Presence of automatic (implantable) cardiac defibrillator; I25.10 Atherosclerotic heart disease of native coronary artery without angina pectoris; I25.2 Old myocardial infarction; E78.5 Hyperlipidemia, unspecified; K21.9 Gastro-esophageal reflux disease without esophagitis; Z86.73 Personal history of transient ischemic attack (TIA), and cerebral infarction without residual deficits; Z79.02 Long term (current) use of antithrombotics/antiplatelets; Z79.4 Long term (current) use of insulin; Z79.899 Other long term (current) drug therapy; Z90.710 Acquired absence of both cervix and uterus; Z88.5 Allergy status to narcotic agent; Z91.040 Latex allergy status; Z91.048 Other nonmedicinal substance allergy status; Z88.8 Allergy status to other drugs, medicaments and biological substances; Z81.1 Family history of alcohol abuse and dependence; Z82.61 Family history of arthritis; Z83.3 Family history of diabetes mellitus; Z82.49 Family history of ischemic heart disease and other diseases of the circulatory system; Z83.511 Family history of glaucoma
CPT/HCPCS: 66984; V2787; C1780; J3470; J2001 ×2; J0171; J2704

== ENCOUNTER 2017-09-18 12:27 | Emergency (ER) | payer MEDICARE, OTHER ==
[2017-09-18] MEDS ORDERED: ONDANSETRON 4 MG/2 ML VIAL IVP STA (13:21)
[2017-09-18] MEDS ORDERED: HYDROcodone/APAP 5-325MG 1 EACH TAB PO STA (13:21)
[2017-09-18] MEDS ORDERED: SODIUM CHLORIDE 0.9% 1,000 ML IV STA (13:21)
--- NOTE | 2017-09-18 13:32 | ED ---
Recheck HPI - General Chief Complaint: Recheck/Abnormal Lab/Rx Stated Complaint: bilat diabetic foot sores Time Seen by Provider: 09/18/17 13:11 Source: patient, RN notes reviewed Mode of arrival: wheelchair Limitations: no limitations - History of Present Illness Initial Comments: This is a 72-year-old female presents emergency Department with multiple complaints. Patient states that she has chronic issues leg and which she is scheduled see vascular surgery again she has several times. Patient states that she currently takes. Aspirin and Plavix. She states her feet have become red and has sores. She states that she has sores on her left foot third and fourth digit along with an injury to her right foot from dropping a phone on it. Patient also complains of nauseated today with vomiting. She has had nausea the last 3-4 days. She denies any chest pain or shortness of breath. She states she has some abdominal cramping diarrhea. No dysuria no hematuria at this time. - Related Data Home Medications Medication Instructions Recorded Confirmed Calcium Carbonate/Vitamin D3 1 tab PO BID 08/08/14 09/18/17 [Calcium 600-Vit D3 400 Tablet] Clopidogrel [Plavix] 75 mg PO DAILY 11/22/14 09/18/17 Atorvastatin [Lipitor] 40 mg PO BID 11/26/16 09/18/17 Cholecalciferol [Vitamin D3] 2,000 unit PO DAILY 02/02/17 09/18/17 Cilostazol [Pletal] 100 mg PO BID 02/02/17 09/18/17 DULoxetine HCL [Cymbalta] 60 mg PO DAILY 02/02/17 09/18/17 Lansoprazole [Prevacid] 30 mg PO DAILY 02/02/17 09/18/17 Aspirin 325 mg PO HS 06/16/17 09/18/17 Fenofibrate Nanocrystallized 145 mg PO DAILY 06/16/17 09/18/17 [Tricor] Insulin Aspart [NovoLOG Flexpen] 7 units SQ AC-BRKFST 06/16/17 09/18/17 Insulin Aspart [NovoLOG Flexpen] 10 units SQ AC-SUPPER 06/16/17 09/18/17 Insulin Aspart [NovoLOG Flexpen] 12 units SQ AC-LUNCH 06/16/17 09/18/17 Insulin Glargine,Hum.rec.anlog 48 units SQ HS 06/16/17 09/18/17 [Cruz Castrejon] Multivitamins, Thera [Multivitamin 1 tab PO DAILY 06/16/17 09/18/17 (formulary)] Ubidecarenone [Co Q-10] 400 mg PO DAILY 06/16/17 09/18/17 Bifidobacterium Infantis [Align] 4 mg PO DAILY 09/18/17 09/18/17 Isosorbide Mononitrate ER [Imdur] 60 mg PO DAILY 09/18/17 09/18/17 Lisinopril [Zestril] 10 mg PO DAILY 09/18/17 09/18/17 Metoprolol Tartrate [Lopressor] 100 mg PO BID 09/18/17 09/18/17 Nitroglycerin Sl Tabs [Nitrostat] 0.4 mg SUBLINGUAL Q5M PRN 09/18/17 09/18/17 Previous Rx's Medication Instructions Recorded Hydrocodone/Acetaminophen [[place] 1 tab PO Q6HR PRN #12 tab 09/18/17 5-325] Sulfamethox-Tmp 800-160Mg [Bactrim 1 each PO Q12HR #20 tab 09/18/17 Ds] Allergies Allergy/AdvReac Type Severity Reaction Status Date / Time adhesive Allergy Itching Verified 09/18/17 13:16 codeine Allergy Hallucinati Verified 09/18/17 13:16 ons dipyridamole Allergy heart Verified 09/18/17 13:16 [From Persantine] stopped latex AdvReac Rash/Hives Verified 09/18/17 13:16 metformin AdvReac "passed Verified 09/18/17 13:16 out" Review of Systems ROS Statement: Those systems with pertinent positive or pertinent negative responses have been documented in the HPI. ROS Other: All systems not noted in ROS Statement are negative. Past Medical History Past Medical History: Coronary Artery Disease (CAD), Chest Pain / Angina, Heart Failure, CVA/TIA, Diabetes Mellitus, GERD/Reflux, Hyperlipidemia, Hypertension, Myocardial Infarction ([place]), Osteoarthritis (OA), Syncope Additional Past Medical History / Comment(s): HX OF POLIO, PAD, ISCHEMIC CARDIOMYOPATHY., RT CATARACTS., USES WALKER. Last Myocardial Infarction Date:: 2012 History of Any Multi-Drug Resistant Organisms: None Reported Past Surgical History: AICD, Appendectomy, Section, Cholecystectomy, Coronary Bypass/CABG, Heart Catheterization, Heart Catheterization With Stent, Hysterectomy Additional Past Surgical History / Comment(s): ABIMBOLA CAROTID ENDARTERECTOMY., OVARIAN CYST., STENT LT SUBCLAVIAN - TOTAL 4 STENTS ., [employer]IFIC AICD. , LT CATARACT REMOVED Past Anesthesia/Blood Transfusion Reactions: No Reported Reaction Date of Last Stent Placement:: 11/2014 Type of Cardiac Device: AICD Device Placement Date:: 2014 Past Psychological History: Anxiety, Depression Smoking Status: Never smoker Past Alcohol Use History: None Reported Past Drug Use History: None Reported - Past Family History Father Family Medical History: Cancer Additional Family Medical History / Comment(s): pt. states her father had throat cancer Mother Family Medical History: Coronary Artery Disease (CAD), Hyperlipidemia, Hypertension Additional Family Medical History / Comment(s): CABG General Exam Limitations: no limitations General appearance: alert, in no apparent distress Head exam: Present: atraumatic, normocephalic, normal inspection Eye exam: Present: normal appearance, PERRL, EOMI. Absent: scleral icterus, conjunctival injection, periorbital swelling Respiratory exam: Present: normal lung sounds bilaterally. Absent: respiratory distress, wheezes, rales, rhonchi, stridor Cardiovascular Exam: Present: regular rate, normal rhythm, normal heart sounds. Absent: systolic murmur, diastolic murmur, rubs, gallop, clicks GI/Abdominal exam: Present: soft, tenderness (Mild left-sided), normal bowel sounds. Absent: distended, guarding, rebound, rigid Extremities exam: Present: other (Bilateral lower extremities there are multiple erythematous ulcerated areas, bilateral erythematous feet from the mid foot to the toes legs are cool and very faint pulse palpable.) Back exam: Absent: CVA tenderness (R), CVA tenderness (L) Skin exam: Present: warm, dry Course Vital Signs 09/18/17 09/18/17 12:47 15:51 Temperature 98.1 F Pulse Rate 100 98 Respiratory 20 18 Rate Blood Pressure 120/62 137/60 O2 Sat by Pulse 98 97 Oximetry Medical Decision Making - Medical Decision Making 72-year-old female presented for multiple complaints. Patient has had some nausea no vomiting here. She was hydrated. Patient is found a urinary tract infection. Patient is no chest pain no shortness of breath. Patient has no vascular disease has pulses in bilateral lower extremities. She does have some mild cellulitis no evidence of osteomyelitis. Patient had bilateral foot x- rays. Patient will be in antibiotics here, discharge on antibiotics she is to follow-up tomorrow for recheck and return return for any worsening symptoms. - Lab Data Result diagrams: 09/18/17 13:46 09/18/17 13:46 Lab Results 09/18/17 09/18/17 09/18/17 Range/Units 13:46 13:46 13:46 WBC 13.0 H (3.8-10.6) k/uL RBC 4.34 (3.80-5.40) m/uL Hgb 12.6 (11.4-16.0) gm/dL Hct 37.9 (34.0-46.0) % MCV 87.2 (80.0-100.0) fL MCH 29.0 (25.0-35.0) pg MCHC 33.2 (31.0-37.0) g/dL RDW 14.6 (11.5-15.5) % Plt Count 300 (150-450) k/uL Neutrophils % 79 % Lymphocytes % 13 % Monocytes % 5 % Eosinophils % 2 % Basophils % 0 % Neutrophils # 10.2 H (1.3-7.7) k/uL Lymphocytes # 1.7 (1.0-4.8) k/uL Monocytes # 0.6 (0-1.0) k/uL Eosinophils # 0.3 (0-0.7) k/uL Basophils # 0.0 (0-0.2) k/uL PT (9.0-12.0) sec INR (<1.2) APTT (22.0-30.0) sec Sodium 141 (137-145) mmol/L Potassium 4.6 (3.5-5.1) mmol/L Chloride 101 (98-107) mmol/L Carbon Dioxide 25 (22-30) mmol/L Anion Gap 15 mmol/L BUN 20 H (7-17) mg/dL Creatinine 0.82 (0.52-1.04) mg/dL Est GFR (CKD-EPI)AfAm 84 (>60 ml/min/1.73 sqM) Est GFR (CKD-EPI)NonAf 73 (>60 ml/min/1.73 sqM) Glucose 180 H (74-99) mg/dL Calcium 10.2 (8.4-10.2) mg/dL Total Bilirubin 0.6 (0.2-1.3) mg/dL AST 22 (14-36) U/L ALT 16 (9-52) U/L Alkaline Phosphatase 69 (38-126) U/L Total Creatine Kinase 42 (30-135) U/L CK-MB (CK-2) 0.9 (0.0-2.4) ng/mL CK-MB (CK-2) Rel Index 2.1 Troponin I 0.017 (0.000-0.034) ng/mL Total Protein 6.8 (6.3-8.2) g/dL Albumin 4.2 (3.5-5.0) g/dL Amylase 57 (30-110) U/L Lipase 210 (23-300) U/L Urine Color Urine Appearance (Clear) Urine pH (5.0-8.0) Ur Specific [place] (1.001-1.035) Urine Protein (Negative) Urine Glucose (UA) (Negative) Urine Ketones (Negative) Urine Blood (Negative) Urine Nitrite (Negative) Urine Bilirubin (Negative) Urine Urobilinogen (<2.0) mg/dL Ur Leukocyte Esterase (Negative) Urine RBC (0-5) /hpf Urine WBC (0-5) /hpf Ur Squamous Epith Cells (0-4) /hpf Urine Bacteria (None) /hpf Urine Mucus (None) /hpf 09/18/17 09/18/17 Range/Units 13:46 15:10 WBC (3.8-10.6) k/uL RBC (3.80-5.40) m/uL Hgb (11.4-16.0) gm/dL Hct (34.0-46.0) % MCV (80.0-100.0) fL MCH (25.0-35.0) pg MCHC (31.0-37.0) g/dL RDW (11.5-15.5) % Plt Count (150-450) k/uL Neutrophils % % Lymphocytes % % Monocytes % % Eosinophils % % Basophils % % Neutrophils # (1.3-7.7) k/uL Lymphocytes # (1.0-4.8) k/uL Monocytes # (0-1.0) k/uL Eosinophils # (0-0.7) k/uL Basophils # (0-0.2) k/uL PT 10.3 (9.0-12.0) sec INR 1.1 (<1.2) APTT 21.6 L (22.0-30.0) sec Sodium (137-145) mmol/L Potassium (3.5-5.1) mmol/L Chloride (98-107) mmol/L Carbon Dioxide (22-30) mmol/L Anion Gap mmol/L BUN (7-17) mg/dL Creatinine (0.52-1.04) mg/dL Est GFR (CKD-EPI)AfAm (>60 ml/min/1.73 sqM) Est GFR (CKD-EPI)NonAf (>60 ml/min/1.73 sqM) Glucose (74-99) mg/dL Calcium (8.4-10.2) mg/dL Total Bilirubin (0.2-1.3) mg/dL AST (14-36) U/L ALT (9-52) U/L Alkaline Phosphatase (38-126) U/L Total Creatine Kinase (30-135) U/L CK-MB (CK-2) (0.0-2.4) ng/mL CK-MB (CK-2) Rel Index Troponin I (0.000-0.034) ng/mL Total Protein (6.3-8.2) g/dL Albumin (3.5-5.0) g/dL Amylase (30-110) U/L Lipase (23-300) U/L Urine Color Light Yellow Urine Appearance Clear (Clear) Urine pH 7.5 (5.0-8.0) Ur Specific [place] 1.007 (1.001-1.035) Urine Protein Negative (Negative) Urine Glucose (UA) Negative (Negative) Urine Ketones Negative (Negative) Urine Blood Negative (Negative) Urine Nitrite Negative (Negative) Urine Bilirubin Negative (Negative) Urine Urobilinogen <2.0 (<2.0) mg/dL Ur Leukocyte Esterase Small H (Negative) Urine RBC <1 (0-5) /hpf Urine WBC 24 H (0-5) /hpf Ur Squamous Epith Cells <1 (0-4) /hpf Urine Bacteria Occasional H (None) /hpf Urine Mucus Rare H (None) /hpf Disposition Clinical Impression: Cellulitis of both feet, UTI (urinary tract infection), PVD (peripheral vascular disease), Nausea Disposition: HOME SELF-CARE Condition: Stable Instructions: Cellulitis (ED) Prescriptions: Hydrocodone/Acetaminophen [[place] 5-325] 1 tab PO Q6HR PRN #12 tab PRN Reason: Pain Sulfamethox-Tmp 800-160Mg [Bactrim Ds] 1 each PO Q12HR #20 tab Is patient prescribed a controlled substance at d/c from ED?: Yes If prescribed controlled substance>3 days was MAPS reviewed?: No When asked, does pt state using other controlled substances?: No Referrals: Vladimir Azul MD [Primary Care Provider] - 1-2 days Time of Disposition: 15:57
[2017-09-18 14:01] LABS: Basophils % (A) 0 %; Eosinophils # (A) 0.3 k/uL (0-0.7); Eosinophils % (A) 2 %; HCT 37.9 % (34.0-46.0); HGB 12.6 gm/dL (11.4-16.0); Lymphocytes # (A) 1.7 k/uL (1.0-4.8); Lymphocytes % (A) 13 %; MCHC 33.2 g/dL (31.0-37.0); MCV 87.2 fL (80.0-100.0); Mean Platelet Volume 8.2; Monocytes # (A) 0.6 k/uL (0-1.0); Monocytes % (A) 5 %; Neutrophils # (A) 10.2 k/uL (1.3-7.7); Neutrophils % (A) 79 %; Platelet Count 300 k/uL (150-450); RBC 4.34 m/uL (3.80-5.40); RDW 14.6 % (11.5-15.5)
[2017-09-18 14:11] LABS: Albumin 4.2 g/dL (3.5-5.0); Calcium 10.2 mg/dL (8.4-10.2); Potassium 4.6 mmol/L (3.5-5.1); Total Bilirubin 0.6 mg/dL (0.2-1.3); Total Protein 6.8 g/dL (6.3-8.2)
[2017-09-18 14:24] LABS: INR 1.1 (<1.2); Prothrombin Time 10.3 sec (9.0-12.0)
[2017-09-18 14:34] LABS: Partial Thromboplastin Time 21.6 sec (22.0-30.0)
[2017-09-18 14:49] LABS: Creatine Kinase MB 0.9 ng/mL (0.0-2.4); Troponin I 0.017 ng/mL (0.000-0.034)
--- NOTE | 2017-09-18 15:01 | XR ---
EXAMINATION TYPE: XR KUB DATE OF EXAM: 09/18/2017 2:54 PM CLINICAL HISTORY: Abdominal pain TECHNIQUE: Single upright image of the abdomen is obtained. COMPARISON: 11/16/2012. FINDINGS: Scattered gas is seen in nondilated small bowel loops. Gas and fecal material is seen in no n-distended colon. There coronary partial visualization of is no visceromegaly, pneumoperitoneum, or abnormal calcification appreciated. The lung bases are clear and the osseous structures are intact. C holecystectomy clips are noted within the right upper quadrant. Vascular calcifications are seen with in the abdomen. Coronary artery stent graft is seen with median sternotomy wires and cardiac device l ead. Moderate degenerative changes of the lumbosacral spine are present. IMPRESSION: Nonobstructive bowel gas pattern.
--- NOTE | 2017-09-18 15:06 | XR ---
EXAMINATION TYPE: XR foot complete bilateral DATE OF EXAM: 09/18/2017 CLINICAL HISTORY: Bilateral foot pain. History of diabetes with right fourth digit wound. TECHNIQUE: Frontal, lateral, and oblique images of both feet are obtained. COMPARISON: None FINDINGS: There is no acute fracture/dislocation evident in either foot. There is generalized osseous demineral ization of both feet and peripheral arterial atherosclerosis. Mild degenerative changes of the first metatarsophalangeal joint and distal interphalangeal joints are seen as minimal joint space narrowing , marginal osteophytes and subchondral sclerosis. No subcutaneous emphysema is seen. Healed fracture deformity of the proximal phalanx of the distal metaphysis is noted. With attention to the fourth dig it of the right foot in the area the patient's stated ulcer no periosteal reaction or cortical thicke julius is present. Small Achilles enthesophyte is seen on the right. Bilateral mild talonavicular arth ropathy is seen as osseous irregularity. IMPRESSION: 1. No acute fracture or dislocation in either foot. 2. No radiographic sequela of osteomyelitis. 2. Generalized osseous demineralization, mild degenerative changes, and right Achilles enthesophyte a re incidentally noted.
[2017-09-18 15:49] LABS: Appearance,Urine Clear (Clear); Bacteria,Urine Occasional /hpf; Bilirubin,Urine Negative (Negative); Blood,Urine Negative (Negative); Color,Urine Light Yellow; Glucose,Urine (UA) Negative (Negative); Ketones,Urine Negative (Negative); Leukocyte Esterase,Urine Small (Negative); Mucus,Urine Rare /hpf; Nitrite,Urine Negative (Negative); PH, Urine 7.5 (5.0-8.0); Protein,Urine Negative (Negative); RBC,Urine <1 /hpf (0-5); Specific Gravity,Urine 1.007 (1.001-1.035); Squamous Epithelial Cell,Urine <1 /hpf (0-4); Urobilinogen,Urine <2.0 mg/dL (<2.0); WBC,Urine 24 /hpf (0-5)
[2017-09-18 15:53] VITALS: PULSE 98; RESP 18
[2017-09-18] MEDS ORDERED: ceFAZolin IN SWFI 2 GM/20 ML SYRINGE IVP STA (15:55)
[2017-09-18 16:25] VITALS: BP 122/66; TEMP 98.4
== END 2017-09-18 16:25 | disposition home or self-care (01) ==
LOC: EC 12:27
DX: E11.628 Type 2 diabetes mellitus with other skin complications (principal); L03.116 Cellulitis of left lower limb; L03.115 Cellulitis of right lower limb; L03.032 Cellulitis of left toe; L03.031 Cellulitis of right toe; N39.0 Urinary tract infection, site not specified; E11.51 Type 2 diabetes mellitus with diabetic peripheral angiopathy without gangrene; R11.0 Nausea; R10.9 Unspecified abdominal pain; R19.7 Diarrhea, unspecified; E78.5 Hyperlipidemia, unspecified; I11.0 Hypertensive heart disease with heart failure; I50.9 Heart failure, unspecified; I25.10 Atherosclerotic heart disease of native coronary artery without angina pectoris; K21.9 Gastro-esophageal reflux disease without esophagitis; M19.90 Unspecified osteoarthritis, unspecified site; F32.9 Major depressive disorder, single episode, unspecified; F41.9 Anxiety disorder, unspecified; I25.2 Old myocardial infarction; Z79.02 Long term (current) use of antithrombotics/antiplatelets; Z79.4 Long term (current) use of insulin; Z79.82 Long term (current) use of aspirin; Z79.899 Other long term (current) drug therapy; Z88.5 Allergy status to narcotic agent; Z88.8 Allergy status to other drugs, medicaments and biological substances; Z91.040 Latex allergy status; Z91.09 Other allergy status, other than to drugs and biological substances; Z86.79 Personal history of other diseases of the circulatory system; Z86.73 Personal history of transient ischemic attack (TIA), and cerebral infarction without residual deficits; Z82.49 Family history of ischemic heart disease and other diseases of the circulatory system; Z90.49 Acquired absence of other specified parts of digestive tract; W20.8XXA Other cause of strike by thrown, projected or falling object, initial encounter
CPT/HCPCS: 36415; 93005; 80053; 82150; 82550; 82553; 83690; 84484; 85025; 85610; 85730; 81001; 87086; 73630; 74018; 99284; 96374; 96375; 96361 ×2; J2405; J0690

== ENCOUNTER 2017-09-22 18:53 | Observation (INO) | payer MEDICARE, OTHER ==
[2017-09-22] MEDS ORDERED: SODIUM CHLORIDE 0.9% 1,000 ML IV ONE ×2 (19:27)
[2017-09-22] MEDS ORDERED: MORPHINE SULFATE 4 MG/ML SYRINGE IV STA (19:27)
--- NOTE | 2017-09-22 19:58 | ED ---
Fall HPI - General Chief Complaint: Fall Stated Complaint: weakness Time Seen by Provider: 09/22/17 19:18 Source: EMS, RN notes reviewed, old records reviewed Mode of arrival: EMS - History of Present Illness Initial Comments: 72-year-old female presents emergency Department a chief complaint of frequent falls today. She complains of left hip pain. She states that she also has a bruise over her left ribs. She is on blood thinners. She states that she did not hit her head. Denies any neck pain. Patient states that she felt like her legs were just giving way she was getting up to go the bathroom and she fell on her hip and knee. Patient denies any fevers or chills. She denies any chest pain or shortness of breath. She denies him to home pain, nausea or vomiting. Normal bowel habits. She reports that she does have peripheral vascular disease. She states that her legs and to have chronic pain and they feel better with her significant on the edge of the bed. Patient states that she follows up with the vascular surgeon [place]. - Related Data Home Medications Medication Instructions Recorded Confirmed Calcium Carbonate/Vitamin D3 1 tab PO BID 08/08/14 09/22/17 [Calcium 600-Vit D3 400 Tablet] Clopidogrel [Plavix] 75 mg PO DAILY 11/22/14 09/22/17 Atorvastatin [Lipitor] 40 mg PO BID 11/26/16 09/22/17 Cholecalciferol [Vitamin D3] 2,000 unit PO DAILY 02/02/17 09/22/17 Cilostazol [Pletal] 100 mg PO BID 02/02/17 09/22/17 DULoxetine HCL [Cymbalta] 60 mg PO DAILY 02/02/17 09/22/17 Lansoprazole [Prevacid] 30 mg PO DAILY 02/02/17 09/22/17 Aspirin 325 mg PO HS 06/16/17 09/22/17 Fenofibrate Nanocrystallized 145 mg PO DAILY 06/16/17 09/22/17 [Tricor] Insulin Aspart [NovoLOG Flexpen] 7 units SQ AC-BRKFST 06/16/17 09/22/17 Insulin Aspart [NovoLOG Flexpen] 10 units SQ AC-SUPPER 06/16/17 09/22/17 Insulin Aspart [NovoLOG Flexpen] 12 units SQ AC-LUNCH 06/16/17 09/22/17 Insulin Glargine,Hum.rec.anlog 55 units SQ HS 06/16/17 09/22/17 [Cruz Castrejon] Multivitamins, Thera [Multivitamin 1 tab PO DAILY 06/16/17 09/22/17 (formulary)] Ubidecarenone [Co Q-10] 400 mg PO DAILY 06/16/17 09/22/17 Bifidobacterium Infantis [Align] 4 mg PO DAILY 09/18/17 09/22/17 Isosorbide Mononitrate ER [Imdur] 60 mg PO DAILY 09/18/17 09/22/17 Lisinopril [Zestril] 10 mg PO DAILY 09/18/17 09/22/17 Metoprolol Tartrate [Lopressor] 100 mg PO BID 09/18/17 09/22/17 Nitroglycerin Sl Tabs [Nitrostat] 0.4 mg SUBLINGUAL Q5M PRN 09/18/17 09/22/17 Dulaglutide [Trulicity] 0.75 mg SQ WE 09/22/17 09/22/17 Sulfamethox-Tmp 800-160Mg [Bactrim 1 tab PO Q12HR 09/22/17 09/22/17 Ds] Previous Rx's Medication Instructions Recorded Hydrocodone/Acetaminophen [[place] 1 tab PO Q6HR PRN #12 tab 09/18/17 5-325] Allergies Allergy/AdvReac Type Severity Reaction Status Date / Time adhesive Allergy Itching Verified 09/22/17 20:21 codeine Allergy Hallucinati Verified 09/22/17 20:21 ons dipyridamole Allergy heart Verified 09/22/17 20:21 [From Persantine] stopped latex AdvReac Rash/Hives Verified 09/22/17 20:21 metformin AdvReac "passed Verified 09/22/17 20:21 out" Review of Systems ROS Statement: Those systems with pertinent positive or pertinent negative responses have been documented in the HPI. ROS Other: All systems not noted in ROS Statement are negative. Past Medical History Past Medical History: Coronary Artery Disease (CAD), Chest Pain / Angina, Heart Failure, CVA/TIA, Diabetes Mellitus, GERD/Reflux, Hyperlipidemia, Hypertension, Myocardial Infarction ([place]), Osteoarthritis (OA), Syncope Additional Past Medical History / Comment(s): HX OF POLIO, PAD, ISCHEMIC CARDIOMYOPATHY., RT CATARACTS., USES WALKER. Last Myocardial Infarction Date:: 2012 History of Any Multi-Drug Resistant Organisms: None Reported Past Surgical History: AICD, Appendectomy, Section, Cholecystectomy, Coronary Bypass/CABG, Heart Catheterization, Heart Catheterization With Stent, Hysterectomy Additional Past Surgical History / Comment(s): ABIMBOLA CAROTID ENDARTERECTOMY., OVARIAN CYST., STENT LT SUBCLAVIAN - TOTAL 4 STENTS ., [employer] AICD. , LT CATARACT REMOVED Past Anesthesia/Blood Transfusion Reactions: No Reported Reaction Date of Last Stent Placement:: 11/2014 Type of Cardiac Device: AICD Device Placement Date:: 2014 Past Psychological History: Anxiety, Depression Smoking Status: Never smoker Past Alcohol Use History: None Reported Past Drug Use History: None Reported - Past Family History Father Family Medical History: Cancer Additional Family Medical History / Comment(s): pt. states her father had throat cancer Mother Family Medical History: Coronary Artery Disease (CAD), Hyperlipidemia, Hypertension Additional Family Medical History / Comment(s): CABG General Exam - General Exam Comments Initial Comments: Alert 72-year-old female. No distress. Limitations: no limitations General appearance: alert, in no apparent distress Head exam: Present: atraumatic, normocephalic, normal inspection Eye exam: Present: normal appearance, PERRL, EOMI. Absent: scleral icterus, conjunctival injection, periorbital swelling ENT exam: Present: normal exam, mucous membranes moist Neck exam: Present: normal inspection. Absent: tenderness, meningismus, lymphadenopathy Respiratory exam: Present: normal lung sounds bilaterally. Absent: respiratory distress, wheezes, rales, rhonchi, stridor Cardiovascular Exam: Present: regular rate, normal rhythm, normal heart sounds. Absent: systolic murmur, diastolic murmur, rubs, gallop, clicks GI/Abdominal exam: Present: soft, normal bowel sounds. Absent: distended, tenderness, guarding, rebound, rigid Back exam: Present: normal inspection Neurological exam: Present: alert, oriented X3, CN II-XII intact Psychiatric exam: Present: normal affect, normal mood Skin exam: Present: warm, dry, intact, normal color, other (Patient has multiple nonhealing wounds of her bilateral lower extremities.). Absent: rash Course Vital Signs 09/22/17 09/22/17 09/22/17 19:10 21:58 23:26 Temperature 97.4 F L 97.9 F 97.8 F Pulse Rate 92 98 95 Respiratory 18 16 18 Rate Blood Pressure 116/55 102/57 108/58 O2 Sat by Pulse 98 100 100 Oximetry - Reevaluation(s) Reevaluation #1: 09/22/17 21:29 Patient was reevaluated and resting comfortably in bed. Medical Decision Making - Medical Decision Making 9-year-old female presents today after 2 falls. She is of left hip pain. She reports really fever down her left she fell. Did not hit her head. Patient was evaluated in the ER a few days ago for wounds on her legs. She was given Bactrim. This time her wounds did not appear to be acute or worsening. She does have vascular disease, does follow with a vascular surgeon and multiple mother. She does have an appointment next Friday. Patient was given IV fluids and lab work obtained. EKG reading did show A. fib however there are some P waves noted. Troponins negative. She does have an elevation of BUN/ creatinine. Hyperkalemia. Given a dose of Kayexalate. Patient admitted at this time for acute kidney injury, hyperkalemia. Discussed with Dr. Doss. - Lab Data Result diagrams: 09/22/17 19:50 09/22/17 19:50 Lab Results 09/22/17 09/22/17 09/22/17 Range/Units 19:50 19:50 19:50 WBC 12.0 H (3.8-10.6) k/uL RBC 3.84 (3.80-5.40) m/uL Hgb 11.4 (11.4-16.0) gm/dL Hct 33.1 L (34.0-46.0) % MCV 86.3 (80.0-100.0) fL MCH 29.6 (25.0-35.0) pg MCHC 34.3 (31.0-37.0) g/dL RDW 14.8 (11.5-15.5) % Plt Count 358 (150-450) k/uL Neutrophils % 76 % Lymphocytes % 18 % Monocytes % 3 % Eosinophils % 1 % Basophils % 0 % Neutrophils # 9.1 H (1.3-7.7) k/uL Lymphocytes # 2.2 (1.0-4.8) k/uL Monocytes # 0.4 (0-1.0) k/uL Eosinophils # 0.2 (0-0.7) k/uL Basophils # 0.0 (0-0.2) k/uL PT 10.4 (9.0-12.0) sec INR 1.1 (<1.2) APTT 22.9 (22.0-30.0) sec Sodium 134 L (137-145) mmol/L Potassium 5.7 H (3.5-5.1) mmol/L Chloride 99 (98-107) mmol/L Carbon Dioxide 19 L (22-30) mmol/L Anion Gap 16 mmol/L BUN 29 H (7-17) mg/dL Creatinine 1.80 H (0.52-1.04) mg/dL Est GFR (CKD-EPI)AfAm 32 (>60 ml/min/1.73 sqM) Est GFR (CKD-EPI)NonAf 28 (>60 ml/min/1.73 sqM) Glucose 137 H (74-99) mg/dL Calcium 10.4 H (8.4-10.2) mg/dL Total Bilirubin 0.4 (0.2-1.3) mg/dL AST 31 (14-36) U/L ALT 18 (9-52) U/L Alkaline Phosphatase 68 (38-126) U/L Troponin I (0.000-0.034) ng/mL Total Protein 6.1 L (6.3-8.2) g/dL Albumin 3.8 (3.5-5.0) g/dL Urine Color Urine Appearance (Clear) Urine pH (5.0-8.0) Ur Specific [place] (1.001-1.035) Urine Protein (Negative) Urine Glucose (UA) (Negative) Urine Ketones (Negative) Urine Blood (Negative) Urine Nitrite (Negative) Urine Bilirubin (Negative) Urine Urobilinogen (<2.0) mg/dL Ur Leukocyte Esterase (Negative) Ur Squamous Epith Cells (0-4) /hpf Uric Acid Crystals (None) /hpf Hyaline Casts (0-2) /lpf 09/22/17 09/22/17 Range/Units 19:50 21:25 WBC (3.8-10.6) k/uL RBC (3.80-5.40) m/uL Hgb (11.4-16.0) gm/dL Hct (34.0-46.0) % MCV (80.0-100.0) fL MCH (25.0-35.0) pg MCHC (31.0-37.0) g/dL RDW (11.5-15.5) % Plt Count (150-450) k/uL Neutrophils % % Lymphocytes % % Monocytes % % Eosinophils % % Basophils % % Neutrophils # (1.3-7.7) k/uL Lymphocytes # (1.0-4.8) k/uL Monocytes # (0-1.0) k/uL Eosinophils # (0-0.7) k/uL Basophils # (0-0.2) k/uL PT (9.0-12.0) sec INR (<1.2) APTT (22.0-30.0) sec Sodium (137-145) mmol/L Potassium (3.5-5.1) mmol/L Chloride (98-107) mmol/L Carbon Dioxide (22-30) mmol/L Anion Gap mmol/L BUN (7-17) mg/dL Creatinine (0.52-1.04) mg/dL Est GFR (CKD-EPI)AfAm (>60 ml/min/1.73 sqM) Est GFR (CKD-EPI)NonAf (>60 ml/min/1.73 sqM) Glucose (74-99) mg/dL Calcium (8.4-10.2) mg/dL Total Bilirubin (0.2-1.3) mg/dL AST (14-36) U/L ALT (9-52) U/L Alkaline Phosphatase (38-126) U/L Troponin I 0.016 (0.000-0.034) ng/mL Total Protein (6.3-8.2) g/dL Albumin (3.5-5.0) g/dL Urine Color Yellow Urine Appearance Turbid H (Clear) Urine pH 5.5 (5.0-8.0) Ur Specific [place] 1.019 (1.001-1.035) Urine Protein Negative (Negative) Urine Glucose (UA) Negative (Negative) Urine Ketones Negative (Negative) Urine Blood Negative (Negative) Urine Nitrite Negative (Negative) Urine Bilirubin Negative (Negative) Urine Urobilinogen <2.0 (<2.0) mg/dL Ur Leukocyte Esterase Negative (Negative) Ur Squamous Epith Cells 3 (0-4) /hpf Uric Acid Crystals Many H (None) /hpf Hyaline Casts 14 H (0-2) /lpf - Radiology Data Radiology results: report reviewed EKG shows atrial fibrillation. Ventricular rate of 97 bpm. Animal detected. Inferior infarct age undetermined. ST wave and T-wave abnormality considering lateral ischemia. QRS duration 110 ms. QT QTc is 4 5412/523 ms. 09/22/17 22:00 Patient's chest x-ray was reviewed and shows no acute abnormalities. Hip and pelvis x-ray performed and shows no acute abdomen maladies as well. Disposition Clinical Impression: Fall, Contusion of rib on left side, Dehydration, [place] (acute kidney injury), Hyperkalemia Disposition: ADMITTED IP TO THIS HOSP Condition: Stable Is patient prescribed a controlled substance at d/c from ED?: No If prescribed controlled substance>3 days was MAPS reviewed?: No When asked, does pt state using other controlled substances?: No Time of Disposition: 22:18
[2017-09-22 20:13] LABS: INR 1.1 (<1.2); Partial Thromboplastin Time 22.9 sec (22.0-30.0); Prothrombin Time 10.4 sec (9.0-12.0)
[2017-09-22 20:14] LABS: Basophils % (A) 0 %; Eosinophils # (A) 0.2 k/uL (0-0.7); Eosinophils % (A) 1 %; HCT 33.1 % (34.0-46.0); HGB 11.4 gm/dL (11.4-16.0); Lymphocytes # (A) 2.2 k/uL (1.0-4.8); Lymphocytes % (A) 18 %; MCH 29.6 pg (25.0-35.0); MCHC 34.3 g/dL (31.0-37.0); MCV 86.3 fL (80.0-100.0); Mean Platelet Volume 7.4; Monocytes # (A) 0.4 k/uL (0-1.0); Monocytes % (A) 3 %; Neutrophils # (A) 9.1 k/uL (1.3-7.7); Neutrophils % (A) 76 %; Platelet Count 358 k/uL (150-450); RBC 3.84 m/uL (3.80-5.40); RDW 14.8 % (11.5-15.5)
[2017-09-22 20:15] LABS: Albumin 3.8 g/dL (3.5-5.0); Calcium 10.4 mg/dL (8.4-10.2); Potassium 5.7 mmol/L (3.5-5.1); Total Bilirubin 0.4 mg/dL (0.2-1.3); Total Protein 6.1 g/dL (6.3-8.2)
--- NOTE | 2017-09-22 21:13 | XR ---
EXAMINATION TYPE: XR chest 2V DATE OF EXAM: 09/22/2017 COMPARISON: 02/02/2017 HISTORY: Fall. Chest pain. TECHNIQUE: Frontal and lateral views of the chest are obtained. FINDINGS: There is no heart failure nor confluent pneumonic infiltrate. Heart size is normal. There is left axillary pacemaker with the lead tip in the right ventricle. There are chest leads. There are sternal wires. Diaphragm is normal. Bony thorax appears intact. IMPRESSION: No active cardiopulmonary disease. No change.
--- NOTE | 2017-09-22 21:22 | XR ---
EXAMINATION TYPE: XR Hip LT and AP Pelvis DATE OF EXAM: 09/22/2017 COMPARISON: NONE HISTORY: Left hip pain TECHNIQUE: A single AP view of the pelvis is obtained. Two views of the left hip are obtained. FINDINGS: The pelvic ring appears intact. There is vascular calcification. Proximal left femur and h ip joint appear intact. Sacroiliac joints appear normal. CONCLUSION: Negative pelvis and left hip exam.
[2017-09-22] MEDS ORDERED: SODIUM POLYSTYRENE SULFONATE 15 GM/60 ML BOTTLE PO STA (22:10)
[2017-09-22 22:29] LABS: Appearance,Urine Turbid (Clear); Bilirubin,Urine Negative (Negative); Blood,Urine Negative (Negative); Color,Urine Yellow; Glucose,Urine (UA) Negative (Negative); Hyaline Casts,Urine 14 /lpf (0-2); Ketones,Urine Negative (Negative); Leukocyte Esterase,Urine Negative (Negative); Nitrite,Urine Negative (Negative); PH, Urine 5.5 (5.0-8.0); Protein,Urine Negative (Negative); Specific Gravity,Urine 1.019 (1.001-1.035); Squamous Epithelial Cell,Urine 3 /hpf (0-4); Uric Acid Crystals,Urine Many /hpf; Urobilinogen,Urine <2.0 mg/dL (<2.0)
[2017-09-22] MEDS ORDERED: NALOXONE 0.4 MG/ML 1 ML VIAL IV PRN (23:02)
[2017-09-22] MEDS ORDERED: ONDANSETRON 4 MG/2 ML VIAL IVP PRN (23:02)
[2017-09-22] MEDS ORDERED: IBUPROFEN 400 MG TAB PO PRN (23:02)
[2017-09-22] MEDS ORDERED: ACETAMINOPHEN TAB 325 MG TAB PO PRN (23:02)
[2017-09-22] MEDS ORDERED: HYDROcodone/APAP 5-325MG 1 EACH TAB PO PRN ×2 (23:02→23:04)
[2017-09-22] MEDS ORDERED: NITROGLYCERIN SL TABS 0.4 MG TAB SUBLINGUAL PRN (23:04)
[2017-09-23] MEDS: SODIUM CHLORIDE 0.9% 1,000 ML IV SCH ×4 (00:05→20:45)
[2017-09-23] MEDS: MORPHINE SULFATE 4 MG/ML SYRINGE IV PRN ×2 (03:08→09:18)
[2017-09-23 07:23] LABS: Glucose,Whole Blood 123 mg/dL (75-99)
[2017-09-23] MEDS: INSULIN ASPART 100 UNIT/ML 1 ML 10 ML VIAL SQ SCH ×2 (08:20→12:46)
[2017-09-23] MEDS: ATORVASTATIN 40 MG TAB PO SCH ×2 (08:21→20:46)
[2017-09-23] MEDS: CLOPIDOGREL 75 MG TAB PO SCH (08:21)
[2017-09-23] MEDS: CHOLECALCIFEROL 1,000 UNIT TAB PO SCH (08:21)
[2017-09-23] MEDS: DULoxetine HCL 60 MG CAPSULE.DR PO SCH (08:21)
[2017-09-23] MEDS: CILOSTAZOL 100 MG TAB PO SCH ×2 (08:21→20:46)
[2017-09-23] MEDS: CALCIUM CARB-VIT D 500MG-200UN 1 EACH TAB PO SCH ×2 (08:21→20:46)
[2017-09-23] MEDS: FENOFIBRATE 160 MG TAB PO SCH (08:22)
[2017-09-23] MEDS: ISOSORBIDE MONONITRATE ER 60 MG TAB.ER.24H PO SCH (08:22)
[2017-09-23] MEDS: METOPROLOL TARTRATE 50 MG TAB PO SCH ×2 (08:22→20:46)
[2017-09-23] MEDS: MULTIVITAMINS, THERA 1 EACH TAB PO SCH (08:23)
[2017-09-23] MEDS: PANTOPRAZOLE 40 MG TABLET PO SCH (08:23)
[2017-09-23] MEDS: LACTOBACILLUS ACIDOPH & BULGAR 1 EACH PACKET PO SCH (08:48)
[2017-09-23] MEDS ORDERED: PANTOPRAZOLE 40 MG/10 ML VIAL IV SCH (09:00)
[2017-09-23] MEDS ORDERED: LISINOPRIL 10 MG TAB PO SCH (09:00)
[2017-09-23] MEDS ORDERED: NON-FORMULARY DRUG (Ubidecarenone [Co Q-10] 400 MG) PO SCH (09:00)
--- NOTE | 2017-09-23 10:11 | US ---
EXAMINATION TYPE: US kidneys/renal and bladder DATE OF EXAM: 09/23/2017 COMPARISON: CT 05/21/2016, US 11/15/2011 CLINICAL HISTORY: 72-year-old female acute kidney injury. TECHNIQUE: Multiple sonographic images of the kidneys and bladder are obtained. FINDINGS: EXAM MEASUREMENTS: Right Kidney: 10.2 x 5.8 x 5.3 cm Left Kidney: 10.6 x 5.1 x 4.5 cm Right Kidney: No hydronephrosis. Left Kidney: No hydronephrosis. Lobular renal contour incidentally noted. Bladder: wnl Bilateral Jets seen: yes IMPRESSION: No hydronephrosis. Both ureteral jets are seen.
[2017-09-23 11:35] LABS: Glucose,Whole Blood 90 mg/dL (75-99)
[2017-09-23] MEDS: MORPHINE ORAL SOLN 10 MG/5 ML CUP PO PRN ×2 (13:22→18:15)
--- NOTE | 2017-09-23 16:21 | P.HPIM ---
History of Present Illness H&P Date: 09/23/17 Chief Complaint: Acute sudden inability to walk numbness both legs, falls This is a 71-year-old female one of Dr. Azul with a previous medical history significant for coronary artery disease status post coronary artery bypass graft with ischemic cardio myopathy and percutaneous coronary intervention and a total of 4 stents placement last one was put in the LAD back in November 2014, AICD placement, history of left subclavian stenosis status post stenting, carotid artery disease status post bilateral carotid endarterectomies , severe peripheral arterial occlusive disease, vasculitis patient was recently seen by Dr. Amezcua at [facility], for possible revascularization of the left lower extremity, however patient underwent angiogram was not a candidate for any surgical intervention according to him and she was placed on Pletal She presented to emergency room secondary to falls as the patient was not able to feel the legs and cannot move the legs and has subsequently fallen down. This has lasted for approximately 3 hours, both legs are symmetrically involved , patient complains offnumbness bilaterally from the sacral region downward, no trauma to the spine, patient denies any spinnous process pain, has history of polio in the past affecting right leg weakness, patient denies any other focal neurologic deficits in speech and vision and both upper extremity motor functioning. Patient denies loss of consciousness or headache or visual changes or visual pain. 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 neck pain, Denies bleeding gums, Denies dental pain, Denies dysphagia, Denies epistaxis, Denies headache, Denies hoarseness, Denies mouth pain, Denies nasal congestion, Denies nasal discharge, Denies neck fullness/pressure, Denies neck lump, Denies nose pain, Denies odynophagia, Denies post-nasal drip, Denies sinus pain, Denies sinus pressure, Denies swelling in mouth, Denies swelling in throat, Denies sore throat, Denies vertigo, Denies voice changes Cardiovascular: Reports as per HPI, Denies chest pain, Denies claudication, Denies decreased exercise tolerance, Denies dyspnea on exertion, Denies edema, Denies high blood pressure, Denies irregular heart beat, Denies leg edema, Denies lightheadedness, Denies orthopnea, Denies palpitations, Denies paroxysmal nocturnal dyspnea, Denies phlebitis, Denies rapid heart beat, Denies shortness of breath, Denies syncope Respiratory: Reports as per HPI Gastrointestinal: Reports as per HPI, Denies abdominal pain, Denies belching, Denies bloating, Denies BRBPR, Denies change in bowel habits, Denies coffee ground emesis, Denies constipation, Denies diarrhea, Denies dyspepsia, Denies early satiety, Denies excessive gas, Denies heartburn, Denies hematemesis, Denies hematochezia, Denies indigestion, Denies jaundice, Denies lactose intolerance, Denies loss of appetite, Denies melena, Denies nausea, Denies vomiting Genitourinary: Reports as per HPI, Denies abnormal vaginal bleeding, Denies decreased libido, Denies difficulty conceiving, Denies difficulty voiding, Denies dysmenorrhea, Denies dyspareunia, Denies dysuria, Denies flank pain, Denies genital sores, Denies hematuria, Denies hot flashes, Denies incomplete emptying, Denies kidney stones, Denies menorrhagia, Denies mixed incontinence, Denies nocturia, Denies pelvic pain, Denies post void dribbling, Denies , Denies prolapse symptoms, Denies stress incontinence, Denies urge incontinence , Denies urgency, Denies urinary frequency, Denies vaginal discharge, Denies vaginal dryness, Denies vaginal itching, Denies vaginal odor Musculoskeletal: Reports as per HPI, Reports arm numbness/tingling, Reports gait dysfunction, Reports leg numbness/tingling, Reports limitation of motion, Reports low back pain, Reports muscle weakness, Reports shooting leg pain Integumentary: Reports as per HPI, Denies acne, Denies boils, Denies brittle nails, Denies change in hair/nails, Denies color changes, Denies darkening of skin, Denies depigmentation, Denies dryness, Denies foot/leg ulcers, Denies growths, Denies hirsutism, Denies lesions, Denies onychomycosis, Denies pruritus , Denies rash, Denies sores, Denies striae, Denies unusual bruising, Denies wounds Neurological: Reports as per HPI, Denies aphasia, Denies ataxia, Denies balance difficulties, Denies burning pain, Denies change in mentation, Denies change in smell/taste, Denies change in speech, Denies confusion, Denies convulsions, Denies double vision, Denies gait dysfunction, Denies head injury, Denies headaches, Denies hearing difficulties, Denies lack of coordination, Denies loss of vision, Denies memory loss, Denies migraines, Denies motor disturbance, Denies numbness, Denies paralysis, Denies paresthesias, Denies seizures, Denies sensory deficit, Denies spasticity, Denies syncope, Denies tic, Denies tingling , Denies transient paralysis, Denies tremors, Denies vertigo, Denies weakness, Denies visual changes Psychiatric: Reports as per HPI, Denies anhedonia, Denies anxiety, Denies anxiety attacks, Denies change in appetite, Denies change in libido, Denies change in sleep habits, Denies confusion, Denies depression, Denies difficulty concentrating, Denies disorientation, Denies hallucinations, Denies hopelessness , Denies hypersomnia, Denies insomnia, Denies irritability, Denies memory loss, Denies mood swings, Denies paranoia, Denies sadness/tearfulness, Denies sleep disturbances, Denies suicidal ideation Endocrine: Reports as per HPI, Denies cold intolerance, Denies deepening of the voice, Denies excessive sweating, Denies excessive thirst, Denies fatigue, Denies flushing, Denies heat intolerance, Denies high blood sugars, Denies increase in ring/shoe/hat size, Denies low blood sugars, Denies nocturia, Denies palpitations, Denies polydipsia, Denies polyphagia, Denies polyuria, Denies proptosis, Denies recent glucocorticoid use, Denies thyroid mass, Denies weight change Hematologic/Lymphatic: Reports as per HPI, Denies easy bleeding, Denies easy bruising, Denies lymphadenopathy, Denies lymphedema, Denies thrombophilia Allergic/Immunologic: Reports as per HPI, Denies allergic rhinitis, Denies anaphylaxis, Denies angioedema, Denies gluten intolerance, Denies persistent infections, Denies seasonal allergies, Denies urticaria, Denies wheezing Past Medical History Past Medical History: Coronary Artery Disease (CAD), Chest Pain / Angina, Heart Failure, CVA/TIA, Diabetes Mellitus, GERD/Reflux, Hyperlipidemia, Hypertension, Myocardial Infarction (NE), Osteoarthritis (OA), Syncope Additional Past Medical History / Comment(s): HX OF POLIO, PAD, ISCHEMIC CARDIOMYOPATHY., RT CATARACTS., USES WALKER. Last Myocardial Infarction Date:: 2012 History of Any Multi-Drug Resistant Organisms: None Reported Past Surgical History: AICD, Appendectomy, Section, Cholecystectomy, Coronary Bypass/CABG, Heart Catheterization, Heart Catheterization With Stent, Hysterectomy Additional Past Surgical History / Comment(s): ABIMBOLA CAROTID ENDARTERECTOMY., OVARIAN CYST., STENT LT SUBCLAVIAN - TOTAL 4 STENTS ., [employer] AICD. , LT CATARACT REMOVED Past Anesthesia/Blood Transfusion Reactions: No Reported Reaction Date of Last Stent Placement:: 11/2014 Type of Cardiac Device: AICD Device Placement Date:: 2014 Past Psychological History: Anxiety, Depression Smoking Status: Never smoker Past Alcohol Use History: None Reported Past Drug Use History: None Reported - Past Family History Father Family Medical History: Cancer Additional Family Medical History / Comment(s): pt. states her father had throat cancer Mother Family Medical History: Coronary Artery Disease (CAD), Hyperlipidemia, Hypertension Additional Family Medical History / Comment(s): CABG Medications and Allergies Home Medications Medication Instructions Recorded Confirmed Type Calcium Carbonate/Vitamin D3 1 tab PO BID 08/08/14 09/22/17 History [Calcium 600-Vit D3 400 Tablet] Clopidogrel [Plavix] 75 mg PO DAILY 11/22/14 09/22/17 History Atorvastatin [Lipitor] 40 mg PO BID 11/26/16 09/22/17 History Cholecalciferol [Vitamin D3] 2,000 unit PO DAILY 02/02/17 09/22/17 History Cilostazol [Pletal] 100 mg PO BID 02/02/17 09/22/17 History DULoxetine HCL [Cymbalta] 60 mg PO DAILY 02/02/17 09/22/17 History Lansoprazole [Prevacid] 30 mg PO DAILY 02/02/17 09/22/17 History Aspirin 325 mg PO HS 06/16/17 09/22/17 History Fenofibrate Nanocrystallized 145 mg PO DAILY 06/16/17 09/22/17 History [Tricor] Insulin Aspart [NovoLOG Flexpen] 7 units SQ AC-BRKFST 06/16/17 09/22/17 History Insulin Aspart [NovoLOG Flexpen] 10 units SQ AC-SUPPER 06/16/17 09/22/17 History Insulin Aspart [NovoLOG Flexpen] 12 units SQ AC-LUNCH 06/16/17 09/22/17 History Insulin Glargine,Hum.rec.anlog 55 units SQ HS 06/16/17 09/22/17 History [Cruz Castrejon] Multivitamins, Thera [Multivitamin 1 tab PO DAILY 06/16/17 09/22/17 History (formulary)] Ubidecarenone [Co Q-10] 400 mg PO DAILY 06/16/17 09/22/17 History Bifidobacterium Infantis [Align] 4 mg PO DAILY 09/18/17 09/22/17 History Hydrocodone/Acetaminophen [[place]ron 1 tab PO Q6HR PRN #12 tab 09/18/17 09/22/17 Rx 5-325] Isosorbide Mononitrate ER [Imdur] 60 mg PO DAILY 09/18/17 09/22/17 History Lisinopril [Zestril] 10 mg PO DAILY 09/18/17 09/22/17 History Metoprolol Tartrate [Lopressor] 100 mg PO BID 09/18/17 09/22/17 History Nitroglycerin Sl Tabs [Nitrostat] 0.4 mg SUBLINGUAL Q5M PRN 09/18/17 09/22/17 History Dulaglutide [Trulicity] 0.75 mg SQ WE 09/22/17 09/22/17 History Sulfamethox-Tmp 800-160Mg [Bactrim 1 tab PO Q12HR 09/22/17 09/22/17 History Ds] Allergies Allergy/AdvReac Type Severity Reaction Status Date / Time adhesive Allergy Itching Verified 09/22/17 20:21 codeine Allergy Hallucinati Verified 09/22/17 20:21 ons dipyridamole Allergy heart Verified 09/22/17 20:21 [From Persantine] stopped latex AdvReac Rash/Hives Verified 09/22/17 20:21 metformin AdvReac "passed Verified 09/22/17 20:21 out" Physical Exam Vitals: Vital Signs Temp Pulse Pulse Resp BP BP Pulse Ox 09/23/17 14:05 98.3 F 102 H 16 116/54 96 09/23/17 07:03 97.8 F 102 H 16 143/65 99 09/23/17 00:02 96.8 F L 90 18 110/45 97 09/22/17 23:26 97.8 F 95 18 108/58 100 09/22/17 21:58 97.9 F 98 16 102/57 100 09/22/17 19:10 97.4 F L 92 18 116/55 98 Intake and Output 09/23/17 09/23/17 09/23/17 06:59 14:59 22:59 Intake Total 350 Balance 350 Intake: Intake, IV Titration 350 Amount Sodium Chloride 0.9% 1, 200 000 ml @ 100 mls/hr IV . Q10H NOE Rx#:[id number] Sodium Chloride 0.9% 1, 150 000 ml @ 75 mls/hr IV . [id number] NOE Rx#:[id number] Other: Voiding Method Bedside Commode Diaper # Voids 1 3 Weight 69.853 kg - Constitutional General appearance: cooperative, no acute distress - EENT Eyes: anicteric sclerae, EOMI, PERRLA ENT: NA/AT, normal oropharynx - Neck Neck: no lymphadenopathy, normal ROM, no other, no rigidity, no stridor, no thyromegaly - Respiratory Respiratory: bilateral: CTA, negative: diminished, dullness, rales, rhonchi - Cardiovascular Rhythm: regular Heart sounds: normal: S1, S2 Abnormal Heart Sounds: no systolic murmur, no diastolic murmur, no rub, no S3 Gallop, no S4 Gallop, no click, no other - Gastrointestinal General gastrointestinal: normal bowel sounds, soft - Integumentary Integumentary: normal, normal turgor - Neurologic Neurologic: CNII-XII intact - Musculoskeletal Musculoskeletal: gait normal, strength equal bilaterally - Psychiatric Psychiatric: A&O x's 3, appropriate affect, intact judgment & insight Results CBC & Chem 7: 09/22/17 19:50 09/22/17 19:50 Labs: Abnormal Lab Results - Last 24 Hours (Table) 09/22/17 09/22/17 09/22/17 Range/Units 19:50 19:50 21:25 WBC 12.0 H (3.8-10.6) k/uL Hct 33.1 L (34.0-46.0) % Neutrophils # 9.1 H (1.3-7.7) k/uL Sodium 134 L (137-145) mmol/L Potassium 5.7 H (3.5-5.1) mmol/L Carbon Dioxide 19 L (22-30) mmol/L BUN 29 H (7-17) mg/dL Creatinine 1.80 H (0.52-1.04) mg/dL Glucose 137 H (74-99) mg/dL POC Glucose (mg/dL) (75-99) mg/dL Calcium 10.4 H (8.4-10.2) mg/dL Total Protein 6.1 L (6.3-8.2) g/dL Urine Appearance Turbid H (Clear) Uric Acid Crystals Many H (None) /hpf Hyaline Casts 14 H (0-2) /lpf 09/23/17 Range/Units 07:04 WBC (3.8-10.6) k/uL Hct (34.0-46.0) % Neutrophils # (1.3-7.7) k/uL Sodium (137-145) mmol/L Potassium (3.5-5.1) mmol/L Carbon Dioxide (22-30) mmol/L BUN (7-17) mg/dL Creatinine (0.52-1.04) mg/dL Glucose (74-99) mg/dL POC Glucose (mg/dL) 123 H (75-99) mg/dL Calcium (8.4-10.2) mg/dL Total Protein (6.3-8.2) g/dL Urine Appearance (Clear) Uric Acid Crystals (None) /hpf Hyaline Casts (0-2) /lpf Microbiology - Last 24 Hours (Table) 09/23/17 08:35 Urine Culture - Preliminary Urine,Clean Catch Laboratory Results WBC 12.0 k/uL (3.8-10.6) H 09/22/17 19:50 RBC 3.84 m/uL (3.80-5.40) 09/22/17 19:50 Hgb 11.4 gm/dL (11.4-16.0) 09/22/17 19:50 Hct 33.1 % (34.0-46.0) L 09/22/17 19:50 MCV 86.3 fL (80.0-100.0) 09/22/17 19:50 MCH 29.6 pg (25.0-35.0) 09/22/17 19:50 MCHC 34.3 g/dL (31.0-37.0) 09/22/17 19:50 RDW 14.8 % (11.5-15.5) 09/22/17 19:50 Plt Count 358 k/uL (150-450) 09/22/17 19:50 Neutrophils % 76 % 09/22/17 19:50 Lymphocytes % 18 % 09/22/17 19:50 Monocytes % 3 % 09/22/17 19:50 Eosinophils % 1 % 09/22/17 19:50 Basophils % 0 % 09/22/17 19:50 Neutrophils # 9.1 k/uL (1.3-7.7) H 09/22/17 19:50 Lymphocytes # 2.2 k/uL (1.0-4.8) 09/22/17 19:50 Monocytes # 0.4 k/uL (0-1.0) 09/22/17 19:50 Eosinophils # 0.2 k/uL (0-0.7) 09/22/17 19:50 Basophils # 0.0 k/uL (0-0.2) 09/22/17 19:50 PT 10.4 sec (9.0-12.0) 09/22/17 19:50 INR 1.1 (<1.2) 09/22/17 19:50 APTT 22.9 sec (22.0-30.0) 09/22/17 19:50 Sodium 134 mmol/L (137-145) L 09/22/17 19:50 Potassium 5.7 mmol/L (3.5-5.1) H 09/22/17 19:50 Chloride 99 mmol/L (98-107) 09/22/17 19:50 Carbon Dioxide 19 mmol/L (22-30) L 09/22/17 19:50 Anion Gap 16 mmol/L 09/22/17 19:50 BUN 29 mg/dL (7-17) H 09/22/17 19:50 Creatinine 1.80 mg/dL (0.52-1.04) H 09/22/17 19:50 Est GFR (CKD-EPI)AfAm 32 (>60 ml/min/1.73 sqM) 09/22/17 19:50 Est GFR (CKD-EPI)NonAf 28 (>60 ml/min/1.73 sqM) 09/22/17 19:50 Glucose 137 mg/dL (74-99) H 09/22/17 19:50 POC Glucose (mg/dL) 90 mg/dL (75-99) 09/23/17 11:33 POC Glu Programmer Operator Numerical Control Slime Baker 09/23/17 11:33 Calcium 10.4 mg/dL (8.4-10.2) H 09/22/17 19:50 Total Bilirubin 0.4 mg/dL (0.2-1.3) 09/22/17 19:50 AST 31 U/L (14-36) 09/22/17 19:50 ALT 18 U/L (9-52) 09/22/17 19:50 Alkaline Phosphatase 68 U/L (38-126) 09/22/17 19:50 Troponin I 0.016 ng/mL (0.000-0.034) 09/22/17 19:50 Total Protein 6.1 g/dL (6.3-8.2) L 09/22/17 19:50 Albumin 3.8 g/dL (3.5-5.0) 09/22/17 19:50 Urine Color Yellow 09/22/17 21:25 Urine Appearance Turbid (Clear) H 09/22/17 21:25 Urine pH 5.5 (5.0-8.0) 09/22/17 21:25 Ur Specific [place] 1.019 (1.001-1.035) 09/22/17 21:25 Urine Protein Negative (Negative) 09/22/17 21:25 Urine Glucose (UA) Negative (Negative) 09/22/17 21:25 Urine Ketones Negative (Negative) 09/22/17 21:25 Urine Blood Negative (Negative) 09/22/17 21:25 Urine Nitrite Negative (Negative) 09/22/17 21:25 Urine Bilirubin Negative (Negative) 09/22/17 21:25 Urine Urobilinogen <2.0 mg/dL (<2.0) 09/22/17 21:25 Ur Leukocyte Esterase Negative (Negative) 09/22/17 21:25 Ur Squamous Epith Cells 3 /hpf (0-4) 09/22/17 21:25 Uric Acid Crystals Many /hpf (None) H 09/22/17 21:25 Hyaline Casts 14 /lpf (0-2) H 09/22/17 21:25 Thrombosis Risk Factor Assmnt - DVT/VTE Prophylaxis DVT/VTE Prophylaxis: Pharmacologic Prophylaxis ordered, Contraindicated - See note - Choose All That Apply Each Factor Represents 1 point: Obesity (BMI >25) Each Risk Factor Represents 2 Points: Age 61-74 years Thrombosis Risk Factor Assessment Total Risk Factor Score: 3 Thrombosis Risk Factor Assessment Level: Moderate Risk Assessment and Plan Plan: 1. Acute loss of motor functioning bilateral leg accompanied by sudden paresthesias bilaterally lower extremity, underlying history of vasculitis, MRI of the brain with and without contrast and MRI of lumbar spine to evaluate for spinal stenosis, neurology consultation, physical therapy consultation patient follows with Dr. Amezcua at the vascular clinic along with Dr. Lizama cardiology. 2. 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 discontinue Bactrim. Admitting creatinine of 1.8. Motrin discontinued, GELA inhibitor is currently on hold once creatinine would improve, his room lisinopril 3. CAD post CABG with ischemic cardiopathy post AICD. Continue treatment as in paragraph #1. 4. Severe PAD post evaluation by vascular surgery. Continue Pletal 100 mg orally twice every day. 5. Carotid artery disease status post carotid endarterectomies. Continue with aspirin, Plavix, Lipitor for secondary prevention. 6. Ucontrolled diabetes mellitus type 2 with PVD complications, neuropathy, A1c 9.2 last January 2017, recently started on trulicity. tudjeo 55 units at bedtime along with the Humalog per sliding scale. Continue BGM before each meal and bedtime. 7. Hypertension and hypertensive cardio vascular disease. Continue patient on Coreg 25 mg orally twice every day. 8. Hyperlipidemia. Continue patient on Lipitor 80 mg orally once every day. 9. History of left subclavian stenosis. Post stenting. Stable at this time. 10 Hyperkalemia most likely secondary to rise in creatinine, GELA inhibitor would be temporarily be held, Kayexalate given from the emergency room 10. History of GERD. Continue patient on Prevacid 30 mg orally once every day. 11. Vitamin D deficiency. Continue patient on vitamin D 1000 units once every day. 12. Depression. Continue Cymbalta 60 mg orally once every day. 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 14. 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 Discontinue Bactrim, will replace with doxycycline DVT prophylaxis. GI prophylaxis. Continue PPI. 15. Admit to inpatient. Estimated length of stay 2 midnights. 16. Patient is full code. 17. Recurrent falls, physical therapy and occupational therapy to see the patient
[2017-09-23 17:22] LABS: Glucose,Whole Blood 87 mg/dL (75-99)
[2017-09-23] MEDS ORDERED: INSULIN ASPART 100 UNIT/ML 1 ML 10 ML VIAL SQ SCH (17:30)
[2017-09-23 20:28] LABS: Glucose,Whole Blood 138 mg/dL (75-99)
[2017-09-23] MEDS ORDERED: ASPIRIN 325 MG TAB PO SCH (21:00)
[2017-09-23] MEDS ORDERED: INSULIN DETEMIR 100 UNIT/ML 10 ML VIAL SQ SCH (21:00)
--- NOTE | 2017-09-23 21:34 | CT ---
EXAMINATION TYPE: CT lumbar spine wo con DATE OF EXAM: 09/23/2017 8:22 PM COMPARISON: 11/26/2016 HISTORY: Patient complains of bilateral leg numbness. CT DLP: 777 mGycm Automated exposure control for dose reduction was used. Unenhanced CT of the lumbar spine was performed. Bone and soft tissue window settings are submitted as well as coronal and sagittal reconstructions. The lumbar vertebra have fairly normal alignment. There is no significant disc space narrowing. There is no compression fracture. There is posterior disc bulging with facet arthropathy and ligamentum fl avum thickening at L3-4 with moderately severe spinal stenosis. There is similar less severe stenosis at L4-5. I see no focal bone destruction. There is no lumbar paraspinal mass. There is multilevel fa cet arthropathy. Abdominal aorta is atheromatous. There is significant calcification in the abdominal aorta and probably aortic stenosis. This is seen in the lower abdominal aorta. The sacroiliac joints are intact. I see no focal bone destruction. IMPRESSION: There is spinal stenosis at L3-4 and L4-5. This is worse at L3-4. There is not a significant change c ompared to old exam. No compression fracture. Atherosclerotic vascular disease. There is probably abd ominal aortic stenosis. There is calcification in the lumen of the lower abdominal aorta that appears to completely occlude the lumen. This is seen at the L2 level. Are there femoral pulses?
[2017-09-24] MEDS: MORPHINE ORAL SOLN 10 MG/5 ML CUP PO PRN ×2 (01:40→10:28)
[2017-09-24 07:35] LABS: Glucose,Whole Blood 112 mg/dL (75-99)
[2017-09-24 07:52] VITALS: RESP 16; TEMP 97.9
[2017-09-24] MEDS: INSULIN ASPART 100 UNIT/ML 1 ML 10 ML VIAL SQ SCH ×2 (08:20→12:53)
[2017-09-24] MEDS: ISOSORBIDE MONONITRATE ER 60 MG TAB.ER.24H PO SCH (08:24)
[2017-09-24] MEDS: METOPROLOL TARTRATE 50 MG TAB PO SCH ×2 (08:25→13:12)
[2017-09-24] MEDS: FENOFIBRATE 160 MG TAB PO SCH ×2 (08:27→08:28)
[2017-09-24] MEDS: PANTOPRAZOLE 40 MG TABLET PO SCH (08:27)
[2017-09-24] MEDS: MULTIVITAMINS, THERA 1 EACH TAB PO SCH (08:27)
[2017-09-24] MEDS: CHOLECALCIFEROL 1,000 UNIT TAB PO SCH (08:27)
[2017-09-24] MEDS: CALCIUM CARB-VIT D 500MG-200UN 1 EACH TAB PO SCH (08:27)
[2017-09-24] MEDS: CILOSTAZOL 100 MG TAB PO SCH (08:27)
[2017-09-24] MEDS: ATORVASTATIN 40 MG TAB PO SCH (08:27)
[2017-09-24] MEDS: LACTOBACILLUS ACIDOPH & BULGAR 1 EACH PACKET PO SCH (08:28)
[2017-09-24] MEDS: CLOPIDOGREL 75 MG TAB PO SCH (08:28)
[2017-09-24] MEDS: DULoxetine HCL 60 MG CAPSULE.DR PO SCH (08:28)
[2017-09-24] MEDS: SODIUM CHLORIDE 0.9% 1,000 ML IV SCH (08:36)
[2017-09-24] MEDS ORDERED: Dulaglutide [Trulicity] 0.75 MG SQ SCH (09:00)
[2017-09-24 09:18] LABS: HCT 32.3 % (34.0-46.0); HGB 10.5 gm/dL (11.4-16.0); Hypochromasia Slight; MCH 29.8 pg (25.0-35.0); MCHC 32.5 g/dL (31.0-37.0); Mean Platelet Volume 7.7; Platelet Count 281 k/uL (150-450); RBC 3.53 m/uL (3.80-5.40); WBC 8.6 k/uL (3.8-10.6)
[2017-09-24 09:31] LABS: MCV 91.5 fL (80.0-100.0)
--- NOTE | 2017-09-24 09:34 | CONS ---
CONSULTATION DATE OF CONSULTATION: 09/23/2017 CHIEF COMPLAINT: Recurrent lower extremity numbness. HISTORY OF PRESENT ILLNESS: Mrs. Colon is a pleasant 72-year-old female who is being evaluated by the Neurology Service today on 09/23/2017 per the request of Dr. Mcginnis for recurrent lower extremity numbness. The patient was brought into [facility] Emergency Room with the main complaints of recurrent episodes of lower extremity numbness and weakness. The patient states that she has had at least 4 of these episodes over the past 2 weeks where she suddenly feels numb from waist down and believes that she is weaker at that time because she has difficulty ambulating. The symptoms last anywhere from 2-4 hours and the symptoms are symmetrical involving both legs. She denies any low back pain and denies any recent injuries. She states that she has had these episodes over the past few years, but they would occur once every 3-6 months back then. She does have a history of vascular disease and has had coronary artery stenting done before. She also has history of bilateral carotid endarterectomies and subclavian artery stent placements. Her CBC on admission was normal except for mild leukocytosis at 12.0. Her comprehensive metabolic profile showed mild hyponatremia at 134, hyperkalemia at 5.7, and renal insufficiency with a BUN of 29 and creatinine of 1.8. Her urinalysis was normal. At the time of my evaluation, she is lying in her bed and appears to be in no acute distress. She denies any current neurological symptoms. PAST MEDICAL HISTORY: Coronary artery disease, angina, heart failure, transient ischemic attacks, diabetes, gastroesophageal reflux disease, dyslipidemia, hypertension, history of myocardial infarction, arthritis, polio, peripheral vascular disease, ischemic cardiomyopathy, history of cataract surgery, pacemaker placement, appendectomy, , cholecystectomy, coronary artery bypass grafting, hysterectomy, bilateral carotid endarterectomies, multiple peripheral vascular stent placements. She also has history of depression and anxiety disorder. SOCIAL HISTORY: She denies any tobacco, alcohol or drug use. FAMILY HISTORY: Positive for heart disease and cancer. HOME MEDICATIONS: Reviewed in the chart. ALLERGIES: ADHESIVE TAPE, CODEINE, PERSANTINE, LATEX, METFORMIN. REVIEW OF SYSTEM: CONSTITUTIONAL: Negative. EYES: Positive for chronic diminished vision. ENT: Negative. CARDIOVASCULAR: As mentioned above. RESPIRATORY: Negative. NEUROLOGICAL: As mentioned above. MUSCULOSKELETAL: Positive for occasional joint pain. She denies any low back pain. GASTROINTESTINAL: Positive for occasional heartburn. GENITOURINARY: Negative. DERMATOLOGICAL: Negative. ENDOCRINE: Positive for diabetes. PSYCHIATRIC: Positive for history of depression and anxiety disorder. PHYSICAL EXAM: Vital signs show a temperature of 98.3, pulse 102, respirations 16, blood pressure 116/54. GENERAL APPEARANCE: The patient is a well-developed, elderly female, who appears to be in no acute distress. HEENT: Normocephalic, atraumatic. \no facial asymmetry is seen. NECK: Supple with no masses felt. CARDIOVASCULAR: Regular rate and rhythm. ABDOMEN: Nontender, nondistended. Extremities showed no edema. Multiple skin lesions are noticed in the lower extremities. NEUROLOGICAL EXAM: The patient is alert, aware and oriented x3. Speech and language are normal. Strength is full in all 4 extremities. Sensory exam was normal to light touch in all 4 extremities. No pronator drift is seen. No tremors or seizure-like activity is noticed. No facial asymmetry is seen on cranial nerve testing. IMPRESSION: 1. Recurrent lower extremity numbness. 2. Recurrent lower extremity weakness. 3. Renal insufficiency. 4. History of peripheral vascular disease. RECOMMENDATION: The patient's symptoms are not consistent with any neurological disorder. Her symptoms are symmetrical and involving both lower extremities every time. She does have a significant history of peripheral arterial disease and I do recommend a Vascular Surgery consultation. The patient will likely need a lower extremity arterial Doppler and possibly an aortogram to check for the abdominal aorta. Continue anti-platelet therapy. Although it is less likely, I will order a CT scan of the lumbar spine to rule out any structural abnormality. Continue physical therapy and neuro checks. I will continue to follow with you. Further recommendations to follow. Thank you for allowing me to participate in the care of your patient. If you have any questions, please feel free to contact me. MMODL / IJN: [id number] /
[2017-09-24 09:49] LABS: Calcium 9.5 mg/dL (8.4-10.2)
[2017-09-24 11:08] LABS: Glucose,Whole Blood 152 mg/dL (75-99)
[2017-09-24 13:10] VITALS: BP 98/52; PULSE 105
--- NOTE | 2017-09-24 14:20 | P.PN ---
Subjective Progress Note Date: 09/24/17 Principal diagnosis: Lower extremity numbness Is a pleasant 72-year-old female continuing be evaluated by the neurology service for recurrent lower extremity numbness. She has experienced at least 4 episodes in the last 2 weeks of bilateral numbness from the waist down. Each episode lasts anywhere from 2-4 hours. She has had similar episodes over the last few years but they are worsening. She has a very significant history of peripheral vascular disease and aortic stenosis. She does have a history of some back pain so we did obtain a CT of the lumbar spine which showed no obvious etiology for her bilateral leg numbness. CT did show some mild spinal canal stenosis and degenerative disc disease. No evidence of nerve root impingement was seen. A CT was unchanged from her previous study. Exam she is sitting up at her bedside in no acute distress. Objective - Vital Signs Vital signs: Vital Signs Temp 97.9 F 09/24/17 07:15 Pulse 105 H 09/24/17 13:09 Resp 16 09/24/17 07:15 BP 98/52 09/24/17 13:09 Pulse Ox 97 09/24/17 07:15 Intake & Output 09/23/17 09/24/17 09/24/17 18:59 06:59 18:59 Intake Total 350 1380 Balance 350 1380 Intake: Intake, IV Titration 350 900 Amount Sodium Chloride 0.9% 1, 200 000 ml @ 100 mls/hr IV . Q10H NOE Rx#:[id number] Sodium Chloride 0.9% 1, 150 900 000 ml @ 75 mls/hr IV . [id number] NOE Rx#:[id number] Oral 480 Other: Voiding Method Bedside Commode Bedside Commode Bedside Commode Diaper Diaper Diaper # Voids 3 1 - Constitutional General appearance: Present: average body habitus, cooperative, no acute distress - EENT Eyes: Present: EOMI, PERRLA. Absent: abnormal pupil ENT: Present: hearing grossly normal - Neck Neck: Present: normal ROM. Absent: rigidity - Respiratory Respiratory: negative: prolonged expiration, prolonged inspiration - Cardiovascular Rhythm: regular - Gastrointestinal General gastrointestinal: Absent: distended - Neurologic Neurologic Comment(s): The patient is alert awake and oriented 3. Speech and language are normal. There is no facial asymmetry. Strength is 5 out of 5 in bilateral upper and lower extremities. There is no sensory deficit. No tremors or seizures are seen. Cranial nerves II through XII are intact globally. - Labs CBC & Chem 7: 09/24/17 07:39 09/24/17 07:39 Labs: Abnormal Lab Results - Last 24 Hours (Table) 09/23/17 09/24/17 09/24/17 Range/Units 20:26 07:16 07:39 RBC 3.53 L (3.80-5.40) m/uL Hgb 10.5 L (11.4-16.0) gm/dL Hct 32.3 L (34.0-46.0) % POC Glucose (mg/dL) 138 H 112 H (75-99) mg/dL 09/24/17 Range/Units 11:04 RBC (3.80-5.40) m/uL Hgb (11.4-16.0) gm/dL Hct (34.0-46.0) % POC Glucose (mg/dL) 152 H (75-99) mg/dL Microbiology - Last 24 Hours (Table) 09/23/17 08:35 Urine Culture - Final Urine,Clean Catch 09/23/17 04:41 Blood Culture - Preliminary Blood No Growth after 24 hours Assessment and Plan (1) Lower extremity numbness Current Visit: Yes Status: Chronic Code(s): R20.0 - ANESTHESIA OF SKIN SNOMED Code(s): 673585142 (2) YASMANY (acute kidney injury) Current Visit: Yes Status: Acute Code(s): N17.9 - ACUTE KIDNEY FAILURE, UNSPECIFIED SNOMED Code(s): 48018096 (3) PAD (peripheral artery disease) Current Visit: No Status: Chronic Code(s): I73.9 - PERIPHERAL VASCULAR DISEASE, UNSPECIFIED SNOMED Code(s): 156432653 Plan: The patient's symptoms are symmetrical in both lower extremities. This is not consistent with any neurological disorder. As above her CT lumbar spine was relatively unchanged from her previous study. She does have significant, we'll aortic stenosis which is being followed in outpatient setting. No further neurological workup is needed. I have performed a history and physical on the above patient. I have reviewed the above note, and agree.
--- NOTE | 2017-09-24 14:28 | P.DS ---
Providers Date of admission: 09/22/17 22:52 Expected date of discharge: 09/24/17 Attending physician: Audra Mcginnis Consults: 09/23/17 12:45 Consult Physician Routine Consulting Provider: Lashaun Nelson Consult Reason/Comments: numbness bilat lower extremity Do you want consulting provider notified?: Yes Primary care physician: Vladimir Azul [facility] Course: This is a 71-year-old female one of Dr. Azul with a previous medical history significant for coronary artery disease status post coronary artery bypass graft with ischemic cardio myopathy and percutaneous coronary intervention and a total of 4 stents placement last one was put in the LAD back in November 2014, AICD placement, history of left subclavian stenosis status post stenting, carotid artery disease status post bilateral carotid endarterectomies , severe peripheral arterial occlusive disease, vasculitis patient was recently seen by Dr. Amezcua at [facility], for possible revascularization of the left lower extremity, however patient underwent angiogram was not a candidate for any surgical intervention according to him and she was placed on Pletal She presented to emergency room secondary to falls as the patient was not able to feel the legs and cannot move the legs and has subsequently fallen down. This has lasted for approximately 3 hours, both legs are symmetrically involved , patient complains offnumbness bilaterally from the sacral region downward, no trauma to the spine, patient denies any spinnous process pain, has history of polio in the past affecting right leg weakness, patient denies any other focal neurologic deficits in speech and vision and both upper extremity motor functioning. Patient denies loss of consciousness or headache or visual changes or visual pain. Patient has chronic lower extremity folliculitis scattered all throughout bilateral legs In the emergency room and was noted to have hyperkalemia, urinalysis was negative except for hyaline cast specific gravity for 1.019, satting of 1.8 glucose 137% count of 12.0 09/24: CT of the lumbar spine showed spinal stenosis at L3 4 and L4 5 worse at L3 4. Not a significant change compared to old exam. No compression fracture. Atherosclerotic vascular disease. Probably abdominal aortic stenosis. Calcification in the lumen of the lower abdominal aorta that appears to be completely occluded the lumen. This is at the L2 level. Renal ultrasound showed no hydronephrosis. Both ureteral jets are seen. Urine culture is in progress. Blood cultures showing no growth after [address] Nelson with symptoms not consistent with neurological disorder. He recommended a vascular surgery consultation. Patient is not have asked her problems and has appointment tomorrow with Dr. Barker. Plan is a patient will be discharged today, follow-up with her vascular surgeon as scheduled and home care with physical therapy will be arranged. Patient's lisinopril dose has been decreased from 10 mg to 2 mg due to renal failure and Bactrim was discontinued. Patient will be placed on doxycycline instead. Patient will be discharged home today in stable condition. Repeat BUN 15 and creatinine 0.91. Discharge diagnoses: 1. Acute loss of motor functioning bilateral leg accompanied by sudden paresthesias bilaterally lower extremity, underlying history of vasculitis, due to spinal stenosis 2. Acute renal failure on chronic CKD stage II due to Bactrim most likely secondary to interstitial nephritis 3. CAD post CABG with ischemic cardiopathy post AICD. 4. Severe PAD 5. Carotid artery disease status post carotid endarterectomies. 6. Uncontrolled diabetes mellitus type 2 with PVD complications, neuropathy, A1c 9.2 01/2017 7. Hypertension and hypertensive cardio vascular disease. 8. Hyperlipidemia. 9. History of left subclavian stenosis. Post stenting. 10 Hyperkalemia secondary to renal failure 11. History of GERD. 12. Vitamin D deficiency. 13. Recurrent depression. 14. Post polio. 17. 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 Discharge plan: PT and OT consults. Impression and plan of care have been directed as dictated by the signing physician. Edie Martinez nurse practitioner acting as scribe for signing physician. Patient Condition at Discharge: Good Plan - Discharge Summary New Discharge Prescriptions: New Doxycycline Hyclate 100 mg PO TID #30 tab Lisinopril [Zestril] 2.5 mg PO HS #30 tab Gabapentin [Neurontin] 100 mg PO TID #90 cap Continue Calcium Carbonate/Vitamin D3 [Calcium 600-Vit D3 400 Tablet] 1 tab PO BID Clopidogrel [Plavix] 75 mg PO DAILY Atorvastatin [Lipitor] 40 mg PO BID Lansoprazole [Prevacid] 30 mg PO DAILY Cilostazol [Pletal] 100 mg PO BID DULoxetine HCL [Cymbalta] 60 mg PO DAILY Cholecalciferol [Vitamin D3] 2,000 unit PO DAILY Fenofibrate Nanocrystallized [Tricor] 145 mg PO DAILY Multivitamins, Thera [Multivitamin (formulary)] 1 tab PO DAILY Insulin Glargine,Hum.rec.anlog [Toujeo Solostar] 55 units SQ HS Aspirin 325 mg PO HS Ubidecarenone [Co Q-10] 400 mg PO DAILY Insulin Aspart [NovoLOG Flexpen] 7 units SQ AC-BRKFST Insulin Aspart [NovoLOG Flexpen] 12 units SQ AC-LUNCH Insulin Aspart [NovoLOG Flexpen] 10 units SQ AC-SUPPER Nitroglycerin Sl Tabs [Nitrostat] 0.4 mg SUBLINGUAL Q5M PRN PRN Reason: Chest Pain Bifidobacterium Infantis [Align] 4 mg PO DAILY Metoprolol Tartrate [Lopressor] 100 mg PO BID Isosorbide Mononitrate ER [Imdur] 60 mg PO DAILY Hydrocodone/Acetaminophen [[place] 5-325] 1 tab PO Q6HR PRN #12 tab PRN Reason: Pain Dulaglutide [Trulicity] 0.75 mg SQ WE Discontinued Lisinopril [Zestril] 10 mg PO DAILY Sulfamethox-Tmp 800-160Mg [Bactrim Ds] 1 tab PO Q12HR Discharge Medication List Calcium Carbonate/Vitamin D3 [Calcium 600-Vit D3 400 Tablet] 1 tab PO BID [History] Clopidogrel [Plavix] 75 mg PO DAILY 11/22/14 [History] Atorvastatin [Lipitor] 40 mg PO BID 11/26/16 [History] Cholecalciferol [Vitamin D3] 2,000 unit PO DAILY 02/02/17 [History] Cilostazol [Pletal] 100 mg PO BID 02/02/17 [History] DULoxetine HCL [Cymbalta] 60 mg PO DAILY 02/02/17 [History] Lansoprazole [Prevacid] 30 mg PO DAILY 02/02/17 [History] Aspirin 325 mg PO HS 06/16/17 [History] Fenofibrate Nanocrystallized [Tricor] 145 mg PO DAILY 06/16/17 [History] Insulin Aspart [NovoLOG Flexpen] 7 units SQ AC-BRKFST 06/16/17 [History] Insulin Aspart [NovoLOG Flexpen] 10 units SQ AC-SUPPER 06/16/17 [History] Insulin Aspart [NovoLOG Flexpen] 12 units SQ AC-LUNCH 06/16/17 [History] Insulin Glargine,Hum.rec.anlog [Toujeo Solostar] 55 units SQ HS 06/16/17 [ History] Multivitamins, Thera [Multivitamin (formulary)] 1 tab PO DAILY 06/16/17 [History ] Ubidecarenone [Co Q-10] 400 mg PO DAILY 06/16/17 [History] Bifidobacterium Infantis [Align] 4 mg PO DAILY 09/18/17 [History] Hydrocodone/Acetaminophen [[place] 5-325] 1 tab PO Q6HR PRN #12 tab 09/18/17 [Rx] Isosorbide Mononitrate ER [Imdur] 60 mg PO DAILY 09/18/17 [History] Metoprolol Tartrate [Lopressor] 100 mg PO BID 09/18/17 [History] Nitroglycerin Sl Tabs [Nitrostat] 0.4 mg SUBLINGUAL Q5M PRN 09/18/17 [History] Dulaglutide [Trulicity] 0.75 mg SQ WE 09/22/17 [History] Doxycycline Hyclate 100 mg PO TID #30 tab 09/24/17 [Rx] Gabapentin [Neurontin] 100 mg PO TID #90 cap 09/24/17 [Rx] Lisinopril [Zestril] 2.5 mg PO HS #30 tab 09/24/17 [Rx] Follow up Appointment(s)/Referral(s): Vladimir Azul MD [Primary Care Provider] - 10/01/17 10:30 am René Ortiz DO [Doctor of Osteopathic Medicine] - 2 Weeks (neurogenic claudication, spinal stenosis) Lashaun Nelson MD [STAFF PHYSICIAN] - 3 Weeks ( office will call patient to set up appt) Patient Instructions/Handouts: Lisinopril (By mouth), Doxycycline (By mouth), Gabapentin (By mouth), Dehydration (DC), Acute Kidney Injury (DC), Foot Care for People with Diabetes (DC), Hyperkalemia (DC) Activity/Diet/Wound Care/Special Instructions: Follow up with Dr. Barker tomorrow as scheduled.
--- NOTE | 2017-09-27 10:41 | CDI ---
Outpatient Documentation Clarification Form Date: 09-27-17 CDS/Rental Car Porter Name: KARI CRAIG Phone: If any questions, call Stephanie Chaudhry Director Of Market Analysis at [phone] Patient Name: DIONI LAO Admit Date: 09-22-17 Discharge Date: 09-24-17 ATTENTION: The [facility] Coding Staff appreciate your assistance in clarifying documentation. Please respond to the clarification below the line at the bottom and electronically sign. The [facility] Coding staff will review the response and follow-up if needed. Please note: Queries are made part of the Legal Health Record. If you have any questions, please contact the Director Of Market Analysis. Dear , Please specify the uncontrolled diabetes mellitus as "hyperglycemia or hypoglycemia below the line. Thank you for your time, Kari Craig diabetes mellitus with hyperglycemia and severe PAD, neuralgia/neuropathy MTDD
== END 2017-09-24 14:25 | disposition home or self-care (01) ==
LOC: EC 18:53 → 5MS5E 22:52
PROVIDERS: ADMIT Family Medicine; ATTEND Family Medicine
DX: M48.061 Spinal stenosis, lumbar region without neurogenic claudication (principal); I77.6 Arteritis, unspecified; E86.0 Dehydration; R29.6 Repeated falls; M25.552 Pain in left hip; E11.51 Type 2 diabetes mellitus with diabetic peripheral angiopathy without gangrene; G89.29 Other chronic pain; I25.10 Atherosclerotic heart disease of native coronary artery without angina pectoris; K21.9 Gastro-esophageal reflux disease without esophagitis; E78.5 Hyperlipidemia, unspecified; I50.9 Heart failure, unspecified; I11.9 Hypertensive heart disease without heart failure; I25.2 Old myocardial infarction; E11.22 Type 2 diabetes mellitus with diabetic chronic kidney disease; I13.0 Hypertensive heart and chronic kidney disease with heart failure and stage 1 through stage 4 chronic kidney disease, or unspecified chronic kidney disease; N17.9 Acute kidney failure, unspecified; N18.2 Chronic kidney disease, stage 2 (mild); M19.90 Unspecified osteoarthritis, unspecified site; S20.212A Contusion of left front wall of thorax, initial encounter; I25.5 Ischemic cardiomyopathy; F41.9 Anxiety disorder, unspecified; E11.65 Type 2 diabetes mellitus with hyperglycemia; E87.5 Hyperkalemia; E87.1 Hypo-osmolality and hyponatremia; E55.9 Vitamin D deficiency, unspecified; L73.9 Follicular disorder, unspecified; F33.9 Major depressive disorder, recurrent, unspecified; I35.0 Nonrheumatic aortic (valve) stenosis; M54.9 Dorsalgia, unspecified; E66.9 Obesity, unspecified; Z68.30 Body mass index [BMI] 30.0-30.9, adult; N12 Tubulo-interstitial nephritis, not specified as acute or chronic; Z79.02 Long term (current) use of antithrombotics/antiplatelets; Z79.82 Long term (current) use of aspirin; Z79.899 Other long term (current) drug therapy; Z88.5 Allergy status to narcotic agent; Z91.048 Other nonmedicinal substance allergy status; Z79.4 Long term (current) use of insulin; Z86.12 Personal history of poliomyelitis; Z88.8 Allergy status to other drugs, medicaments and biological substances; Z91.040 Latex allergy status; Z86.73 Personal history of transient ischemic attack (TIA), and cerebral infarction without residual deficits; Z79.2 Long term (current) use of antibiotics; Z95.810 Presence of automatic (implantable) cardiac defibrillator; Z95.5 Presence of coronary angioplasty implant and graft; Z95.1 Presence of aortocoronary bypass graft; Z95.828 Presence of other vascular implants and grafts; Z80.8 Family history of malignant neoplasm of other organs or systems; W19.XXXA Unspecified fall, initial encounter; T37.0X5A Adverse effect of sulfonamides, initial encounter; E11.40 Type 2 diabetes mellitus with diabetic neuropathy, unspecified
CPT/HCPCS: 99285 ×2; 96374 ×2; 96361 ×5; 96376; 36415; 93005; 97161; 97165; 80053; 80048; 84484; 85025; 85027; 85610; 85730; 81001; 87040; 87086; 73502; 71046; 76770; 72131; G0378 ×3; J2270 ×2

== ENCOUNTER 2017-10-31 23:02 | Inpatient (IN) | payer MEDICARE, OTHER ==
[2017-10-31] MEDS ORDERED: ONDANSETRON 4 MG/2 ML VIAL IVP STA (23:08)
[2017-10-31] MEDS ORDERED: FAMOTIDINE 20 MG/2 ML VIAL IV STA (23:08)
[2017-10-31] MEDS ORDERED: LORazepam 2 MG/ML INJ IV STA (23:08)
[2017-10-31] MEDS ORDERED: PANTOPRAZOLE 40 MG/10 ML VIAL IVP STA (23:08)
--- NOTE | 2017-10-31 23:10 | ED ---
General Adult HPI - General Stated complaint: Vomiting Time Seen by Provider: 10/31/17 23:03 Source: RN notes reviewed, old records reviewed - History of Present Illness Initial comments: This is a 9-year-old female the ER for evaluation. Patient was essay for evaluation regarding positive nausea vomiting, severe nausea vomiting with chest pain. Patient is complicated recent medical history surgical history. Multiple vascular surgery secondary to severe prefer and atherosclerotic arterial disease. Patient just discharged from hospital yesterday. She states she is taking all medication as prescribed. Denies fever, she is actively vomiting, unable to keep anything down. No modifying factors for symptoms, patient's poor historian secondary to severe medical condition - Related Data Home Medications Medication Instructions Recorded Confirmed Clopidogrel [Plavix] 75 mg PO DAILY@89911/22/14 11/01/17 Cholecalciferol [Vitamin D3] 2,000 unit PO DAILY@89902/02/17 11/01/17 DULoxetine HCL [Cymbalta] 60 mg PO DAILY@89902/02/17 11/01/17 Lansoprazole [Prevacid] 30 mg PO DAILY@89902/02/17 11/01/17 Multivitamins, Thera [Multivitamin 1 tab PO DAILY@89906/16/17 11/01/17 (formulary)] Ubidecarenone [Co Q-10] 400 mg PO DAILY@89906/16/17 11/01/17 Bifidobacterium Infantis [Align] 4 mg PO DAILY@89909/18/17 11/01/17 Isosorbide Mononitrate ER [Imdur] 60 mg PO DAILY@89909/18/17 11/01/17 Nitroglycerin Sl Tabs [Nitrostat] 0.4 mg SUBLINGUAL Q5M PRN 09/18/17 11/01/17 Apixaban [Eliquis] 5 mg PO BID@899,209910/31/17 11/01/17 Aspirin 81 mg PO DAILY@89910/31/17 11/01/17 Atorvastatin [Lipitor] 80 mg PO HS@209910/31/17 11/01/17 Calcium Carbonate 648mg 648 mg PO BID@10/31/17 11/01/17 Dulaglutide [Trulicity] 0.75 mg SQ WE 10/31/17 11/01/17 Fenofibrate [Lofibra] 160 mg PO DAILY@0900 10/31/17 11/01/17 Gabapentin [Neurontin] 100 mg PO TID@0900,1200,1700 10/31/17 11/01/17 INSULIN LISPRO (humaLOG) [humaLOG] 4 units SQ AC-TID@09,12,17 10/31/17 11/01/17 INSULIN LISPRO (humaLOG) [humaLOG] See Protocol SQ ACHS 10/31/17 11/01/17 Insulin Glargine [Lantus] 10 units SQ HS@2100 10/31/17 11/01/17 Ketorolac 0.5% Ophth Soln [Acular 1 drops LEFT EYE BID 10/31/17 11/01/17 0.5%] Lifitegrast [Xiidra] 1 drop BOTH EYES BID 10/31/17 11/01/17 Lisinopril [Zestril] 5 mg PO DAILY@0900 10/31/17 11/01/17 Previous Rx's Medication Instructions Recorded Metoprolol Succinate (ER) [Toprol 100 mg PO DAILY@0900 tab.er.24h 11/05/17 XL] Midodrine [ProAmatine] 5 mg PO TID #30 tablet 11/05/17 Spironolactone [Aldactone] 25 mg PO DAILY@1200 tab 11/05/17 metroNIDAZOLE [Flagyl] 500 mg PO TID #15 tab 11/05/17 traMADol HCL [Ultram] 50 mg PO Q4HR PRN #30 tablet 11/05/17 Metoprolol Succinate (ER) [Toprol 100 mg PO DAILY #30 tab 11/06/17 XL] Midodrine [ProAmatine] 5 mg PO TID #30 tablet 11/06/17 Spironolactone [Aldactone] 25 mg PO DAILY #20 tablet 11/06/17 metroNIDAZOLE [Flagyl] 500 mg PO TID #15 tab 11/06/17 Allergies Allergy/AdvReac Type Severity Reaction Status Date / Time adhesive Allergy Itching Verified 11/01/17 11:24 codeine Allergy Hallucinati Verified 11/01/17 11:24 ons dipyridamole Allergy heart Verified 11/01/17 11:24 [From Persantine] stopped latex AdvReac Rash/Hives Verified 11/01/17 11:24 metformin AdvReac "passed Verified 11/01/17 11:24 out" Review of Systems ROS Statement: Those systems with pertinent positive or pertinent negative responses have been documented in the HPI. ROS Other: All systems not noted in ROS Statement are negative. Past Medical History Past Medical History: Coronary Artery Disease (CAD), Chest Pain / Angina, Heart Failure, CVA/TIA, Diabetes Mellitus, GERD/Reflux, Hyperlipidemia, Hypertension, Myocardial Infarction ([place]), Osteoarthritis (OA), Syncope Additional Past Medical History / Comment(s): HX OF POLIO, PAD, ISCHEMIC CARDIOMYOPATHY., RT CATARACTS., USES WALKER. Last Myocardial Infarction Date:: 2012 History of Any Multi-Drug Resistant Organisms: None Reported Past Surgical History: AICD, Appendectomy, Section, Cholecystectomy, Coronary Bypass/CABG, Heart Catheterization, Heart Catheterization With Stent, Hysterectomy Additional Past Surgical History / Comment(s): ABIMBOLA CAROTID ENDARTERECTOMY., OVARIAN CYST., STENT LT SUBCLAVIAN - TOTAL 4 STENTS ., [employer] AICD. , LT CATARACT REMOVED Past Anesthesia/Blood Transfusion Reactions: No Reported Reaction Date of Last Stent Placement:: 11/2014 Type of Cardiac Device: AICD Device Placement Date:: 2014 Past Psychological History: Anxiety, Depression Smoking Status: Never smoker Past Alcohol Use History: None Reported Past Drug Use History: None Reported - Past Family History Father Family Medical History: Cancer Additional Family Medical History / Comment(s): pt. states her father had throat cancer Mother Family Medical History: Coronary Artery Disease (CAD), Hyperlipidemia, Hypertension Additional Family Medical History / Comment(s): CABG General Exam General appearance: alert, anxious, in distress Head exam: Present: atraumatic, normocephalic, normal inspection Eye exam: Present: normal appearance, PERRL, EOMI. Absent: scleral icterus, conjunctival injection, periorbital swelling ENT exam: Present: normal exam, mucous membranes moist Neck exam: Present: normal inspection. Absent: tenderness, meningismus, lymphadenopathy Respiratory exam: Present: normal lung sounds bilaterally. Absent: respiratory distress, wheezes, rales, rhonchi, stridor Cardiovascular Exam: Present: regular rate, normal rhythm, normal heart sounds. Absent: systolic murmur, diastolic murmur, rubs, gallop, clicks GI/Abdominal exam: Present: soft, normal bowel sounds. Absent: distended, tenderness, guarding, rebound, rigid Extremities exam: Present: normal inspection, full ROM, normal capillary refill. Absent: tenderness, pedal edema, joint swelling, calf tenderness Back exam: Present: normal inspection Neurological exam: Present: alert, oriented X3, CN II-XII intact Psychiatric exam: Present: normal affect, normal mood Skin exam: Present: warm, dry, intact, normal color. Absent: rash Course Vital Signs 10/31/17 10/31/17 11/01/17 23:06 23:36 00:22 Temperature 97 F L Pulse Rate 122 H 116 H 118 H Pulse Rate [ Pulse Oximetery ] Respiratory 20 18 16 Rate Blood Pressure 162/80 147/75 137/75 Blood Pressure [Left Arm] O2 Sat by Pulse 96 97 98 Oximetry 11/01/17 11/01/17 00:48 00:58 Temperature 97 F L 97.1 F L Pulse Rate 119 H Pulse Rate [ 116 H Pulse Oximetery ] Respiratory 18 18 Rate Blood Pressure 137/87 Blood Pressure 132/80 [Left Arm] O2 Sat by Pulse 97 97 Oximetry EKG Findings - EKG Comments: EKG Findings:: EKG shows sinus tachycardia rate 120, MI 192, QRS 114, QTc 503 Medical Decision Making - Medical Decision Making 72 female the ER for evasive persistent nausea vomiting, patient will be admitted to the ER for evaluation of electronically replacement, monitoring control symptoms - Lab Data Result diagrams: 11/06/17 05:35 11/05/17 06:08 Lab Results 10/31/17 10/31/17 10/31/17 Range/Units 23:24 23:24 23:24 WBC 8.4 (3.8-10.6) k/uL RBC 3.89 (3.80-5.40) m/uL Hgb 11.8 (11.4-16.0) gm/dL Hct 36.0 (34.0-46.0) % MCV 92.5 (80.0-100.0) fL MCH 30.2 (25.0-35.0) pg MCHC 32.6 (31.0-37.0) g/dL RDW 15.7 H (11.5-15.5) % Plt Count 378 (150-450) k/uL Neutrophils % 85 % Lymphocytes % 10 % Monocytes % 4 % Eosinophils % 0 % Basophils % 0 % Neutrophils # 7.1 (1.3-7.7) k/uL Lymphocytes # 0.8 L (1.0-4.8) k/uL Monocytes # 0.3 (0-1.0) k/uL Eosinophils # 0.0 (0-0.7) k/uL Basophils # 0.0 (0-0.2) k/uL Hypochromasia Marked Poikilocytosis Slight PT (9.0-12.0) sec INR (<1.2) APTT (22.0-30.0) sec Sodium (137-145) mmol/L Potassium (3.5-5.1) mmol/L Chloride (98-107) mmol/L Carbon Dioxide (22-30) mmol/L Anion Gap mmol/L BUN (7-17) mg/dL Creatinine (0.52-1.04) mg/dL Est GFR (CKD-EPI)AfAm (>60 ml/min/1.73 sqM) Est GFR (CKD-EPI)NonAf (>60 ml/min/1.73 sqM) Glucose (74-99) mg/dL Calcium (8.4-10.2) mg/dL Magnesium (1.6-2.3) mg/dL Total Bilirubin (0.2-1.3) mg/dL AST (14-36) U/L ALT (9-52) U/L Alkaline Phosphatase (38-126) U/L Total Creatine Kinase 30 (30-135) U/L CK-MB (CK-2) 1.4 (0.0-2.4) ng/mL CK-MB (CK-2) Rel Index 4.7 Troponin I 0.060 H* (0.000-0.034) ng/mL NT-Pro-B Natriuret Pep pg/mL Total Protein (6.3-8.2) g/dL Albumin (3.5-5.0) g/dL Lipase (23-300) U/L Blood Type A Positive Blood Type Recheck No Antibody Screen NEGATIVE Spec Expiration Date 11/03/2017 - 232310/31/17 10/31/17 10/31/17 Range/Units 23:24 23:24 23:24 WBC (3.8-10.6) k/uL RBC (3.80-5.40) m/uL Hgb (11.4-16.0) gm/dL Hct (34.0-46.0) % MCV (80.0-100.0) fL MCH (25.0-35.0) pg MCHC (31.0-37.0) g/dL RDW (11.5-15.5) % Plt Count (150-450) k/uL Neutrophils % % Lymphocytes % % Monocytes % % Eosinophils % % Basophils % % Neutrophils # (1.3-7.7) k/uL Lymphocytes # (1.0-4.8) k/uL Monocytes # (0-1.0) k/uL Eosinophils # (0-0.7) k/uL Basophils # (0-0.2) k/uL Hypochromasia Poikilocytosis PT 11.5 (9.0-12.0) sec INR 1.2 H (<1.2) APTT 22.4 (22.0-30.0) sec Sodium 137 (137-145) mmol/L Potassium 4.2 (3.5-5.1) mmol/L Chloride 101 (98-107) mmol/L Carbon Dioxide 17 L (22-30) mmol/L Anion Gap 19 mmol/L BUN 19 H (7-17) mg/dL Creatinine 0.80 (0.52-1.04) mg/dL Est GFR (CKD-EPI)AfAm 87 (>60 ml/min/1.73 sqM) Est GFR (CKD-EPI)NonAf 75 (>60 ml/min/1.73 sqM) Glucose 336 H (74-99) mg/dL Calcium 9.6 (8.4-10.2) mg/dL Magnesium 1.5 L (1.6-2.3) mg/dL Total Bilirubin 0.6 (0.2-1.3) mg/dL AST 26 (14-36) U/L ALT 25 (9-52) U/L Alkaline Phosphatase 79 (38-126) U/L Total Creatine Kinase (30-135) U/L CK-MB (CK-2) (0.0-2.4) ng/mL CK-MB (CK-2) Rel Index Troponin I (0.000-0.034) ng/mL NT-Pro-B Natriuret Pep 9330 pg/mL Total Protein 6.0 L (6.3-8.2) g/dL Albumin 3.8 (3.5-5.0) g/dL Lipase 276 (23-300) U/L Blood Type Blood Type Recheck Antibody Screen Spec Expiration Date - Radiology Data Radiology results: report reviewed (X-ray abdominal series negative for acute disease), image reviewed Disposition Clinical Impression: Nausea with vomiting, Dehydration Disposition: ADMITTED IP TO THIS HOSP Condition: Good Is patient prescribed a controlled substance at d/c from ED?: No
[2017-10-31] MEDS: SODIUM CHLORIDE 0.9% 1,000 ML IV STA (23:28)
[2017-10-31 23:41] LABS: Basophils % (A) 0 %; Eosinophils % (A) 0 %; HGB 11.8 gm/dL (11.4-16.0); Hypochromasia Marked; Lymphocytes # (A) 0.8 k/uL (1.0-4.8); Lymphocytes % (A) 10 %; MCH 30.2 pg (25.0-35.0); MCHC 32.6 g/dL (31.0-37.0); MCV 92.5 fL (80.0-100.0); Mean Platelet Volume 7.6; Monocytes # (A) 0.3 k/uL (0-1.0); Monocytes % (A) 4 %; Neutrophils # (A) 7.1 k/uL (1.3-7.7); Neutrophils % (A) 85 %; Platelet Count 378 k/uL (150-450); Poikilocytosis Slight; RBC 3.89 m/uL (3.80-5.40); RDW 15.7 % (11.5-15.5); WBC 8.4 k/uL (3.8-10.6)
[2017-10-31 23:43] LABS: INR 1.2 (<1.2); Partial Thromboplastin Time 22.4 sec (22.0-30.0); Prothrombin Time 11.5 sec (9.0-12.0)
[2017-10-31 23:47] LABS: Albumin 3.8 g/dL (3.5-5.0); Calcium 9.6 mg/dL (8.4-10.2); Magnesium 1.5 mg/dL (1.6-2.3); Potassium 4.2 mmol/L (3.5-5.1); Total Bilirubin 0.6 mg/dL (0.2-1.3)
[2017-11-01] MEDS: MAGNESIUM SULFATE-D5W PMX 1 GM in DEXTROSE/WATER 1 100ML.BAG IVPB SCH ×4 (00:17→15:12)
[2017-11-01 00:27] LABS: Creatine Kinase MB 1.4 ng/mL (0.0-2.4)
--- NOTE | 2017-11-01 00:28 | XR ---
EXAMINATION TYPE: XR abdomen acute w cxr DATE OF EXAM: 11/01/2017 COMPARISON: 09/18/2017 HISTORY: Short of breath and nausea TECHNIQUE: Chest x-ray and supine and upright abdomen FINDINGS: There is no sign of intestinal obstruction or pneumoperitoneum. There is left iliac artery stent. The re are no pathologic calcifications over the kidneys. There is no heart failure nor confluent pneumon ic infiltrate. There are sternal wires. There are chest leads. There is left axillary pacemaker with the lead tip in the right ventricle. IMPRESSION: Nonacute abdomen. No active cardiopulmonary disease.
[2017-11-01 00:32] LABS: Troponin I 0.06 ng/mL (0.000-0.034)
[2017-11-01] MEDS ORDERED: MORPHINE SULFATE 2 MG/ML SYRINGE IVP PRN (00:33)
[2017-11-01] MEDS ORDERED: SODIUM CHLORIDE 0.9% 1,000 ML IV ONE ×2 (00:33→08:32)
[2017-11-01] MEDS ORDERED: MORPHINE SULFATE 2 MG/ML SYRINGE IVP STA (00:33)
[2017-11-01] MEDS ORDERED: SODIUM CHLORIDE 0.9% 1,000 ML IV STA (00:33)
[2017-11-01] MEDS ORDERED: LORazepam 2 MG/ML INJ IV STA (00:33)
[2017-11-01] MEDS ORDERED: SODIUM CHLORIDE 0.9% 500 ML IV STA (00:33)
[2017-11-01] MEDS: ONDANSETRON 4 MG/2 ML VIAL IVP PRN ×2 (01:28→08:26)
[2017-11-01 01:29] LABS: Glucose,Whole Blood 313 mg/dL (75-99)
[2017-11-01] MEDS: SODIUM CHLORIDE 0.9% 1,000 ML IV STA (01:29)
[2017-11-01 01:38] VITALS: BMI 24.2
[2017-11-01] MEDS ORDERED: INSULIN ASPART 100 UNIT/ML 1 ML 10 ML VIAL SQ ONE (01:45)
[2017-11-01 05:45] LABS: Glucose,Whole Blood 254 mg/dL (75-99)
[2017-11-01] MEDS: INSULIN ASPART 100 UNIT/ML 1 ML 10 ML VIAL SQ SCH ×6 (05:48→20:50)
[2017-11-01] MEDS ORDERED: HEPARIN SODIUM,PORCINE 5,000 UNIT/ML 1 ML VIAL IV PRN (08:56)
[2017-11-01] MEDS ORDERED: IOPAMIDOL-300 CONTRAST 30 ML VIAL (ORAL USE) PO PRN ×2 (08:59→10:20)
[2017-11-01] MEDS ORDERED: METOPROLOL SUCCINATE (ER) 25 MG TAB.ER.24H PO SCH (09:45)
[2017-11-01] MEDS ORDERED: HEPARIN SODIUM,PORCINE 5,000 UNIT/ML 1 ML VIAL IV ONE (09:45)
[2017-11-01] MEDS ORDERED: LEVOFLOXACIN 500MG-D5W PMX 500 MG in DEXTROSE/WATER 1 100ML.BAG IVPB SCH (10:00)
[2017-11-01] MEDS: IOPAMIDOL-300 CONTRAST 30 ML VIAL (ORAL USE) PO PRN ×2 (10:25→11:23)
[2017-11-01] MEDS ORDERED: Magnesium Replacement Protocol 1 EACH MISC MISCELLANE PRN (11:07)
--- NOTE | 2017-11-01 11:12 | P.HPIM ---
History of Present Illness H&P Date: 11/01/17 Chief Complaint: Nausea, vomiting This is a 72-year-old female patient of Dr. Azul with a previous medical history significant for coronary artery disease status post coronary artery bypass graft with ischemic cardiomyopathy and percutaneous coronary intervention and a total of 4 stents placement last one was put in the LAD back in November 2014, AICD placement, history of left subclavian stenosis status post stenting, carotid artery disease status post bilateral carotid endarterectomies , severe peripheral arterial occlusive disease. She follows with Dr. Amezcua at [facility], vascular surgeon for possible revascularization of the left lower extremity, however patient underwent angiogram was not a candidate for any surgical intervention according to him and she was placed on Pletal. She had a recent hospitalization in September for acute loss of motor functioning bilateral leg accompanied by sudden paresthesias bilaterally lower extremity due to spinal stenosis and acute kidney injury and discharged home. Pataient was recently hospitalized at [facility] for total of 5 weeks and 3 weeks of that being rehab. She had extensive procedures done by her vascular surgeon. She apparently was discharged from rehab yesterday. Last night Dr. Polanco received a call from her regarding her blood pressure being high. She also had nausea and vomiting. Patient is also complaining of abdominal pain. She denies any blood in her stools. Her stools have been dark but not black. She came into [facility] emergency center for evaluation. White count was 8.4, troponins were 0.060 and 0.308. Patient did develop chest pain after she was here and she received M morphine 4 mg which has resolved the pain. She stated the pain was in the midsternal area. Chest x -ray showed no acute findings as well as abdominal series. Patient was admitted to the selective care unit and has been seen by Dr. Ying and patient was started on heparin drip. Consult was also admitted for Dr. Jimenez. Patient is noted to have black toes on the left third and fourth digits and blackness at the tips of toes on the right. Patient is to return to Dr. Amezcua in 2 weeks for removal of stitches. Review of Systems All systems: negative Constitutional: Denies chills, Denies fever, Denies weight loss Eyes: denies blurred vision, denies pain Ears, nose, mouth and throat: Denies headache, Denies sore throat Cardiovascular: Reports chest pain, Reports leg edema, Denies lightheadedness, Denies shortness of breath, Denies syncope Respiratory: Denies cough, Denies cough with sputum, Denies dyspnea, Denies excessive sputum, Denies hemoptysis, Denies home oxygen Gastrointestinal: Reports abdominal pain, Reports nausea, Reports vomiting, Denies diarrhea Genitourinary: Denies dysuria, Denies hematuria, Denies urgency, Denies urinary frequency Musculoskeletal: Denies myalgias Integumentary: Reports wounds, Denies pruritus, Denies rash Neurological: Denies numbness, Denies weakness Psychiatric: Denies anxiety, Denies depression Endocrine: Denies fatigue, Denies weight change Past Medical History Past Medical History: Coronary Artery Disease (CAD), Chest Pain / Angina, Heart Failure, CVA/TIA, Diabetes Mellitus, GERD/Reflux, Hyperlipidemia, Hypertension, Myocardial Infarction ([place]), Osteoarthritis (OA), Syncope Additional Past Medical History / Comment(s): HX OF POLIO, PAD, ISCHEMIC CARDIOMYOPATHY., RT CATARACTS., USES WALKER. Last Myocardial Infarction Date:: 2012 History of Any Multi-Drug Resistant Organisms: None Reported Past Surgical History: AICD, Appendectomy, Section, Cholecystectomy, Coronary Bypass/CABG, Heart Catheterization, Heart Catheterization With Stent, Hysterectomy Additional Past Surgical History / Comment(s): ABIMBOLA CAROTID ENDARTERECTOMY., OVARIAN CYST., STENT LT SUBCLAVIAN - TOTAL 4 STENTS ., [employer] AICD. , LT CATARACT REMOVED Past Anesthesia/Blood Transfusion Reactions: No Reported Reaction Date of Last Stent Placement:: 11/2014 Type of Cardiac Device: AICD Device Placement Date:: 2014 Past Psychological History: Anxiety, Depression Additional Psychological History / Comment(s): . Smoking Status: Never smoker Past Alcohol Use History: None Reported Past Drug Use History: None Reported - Past Family History Father Family Medical History: Cancer Additional Family Medical History / Comment(s): pt. states her father had throat cancer Mother Family Medical History: Coronary Artery Disease (CAD), Hyperlipidemia, Hypertension Additional Family Medical History / Comment(s): CABG Medications and Allergies Home Medications Medication Instructions Recorded Confirmed Type Clopidogrel [Plavix] 75 mg PO DAILY@0900 11/22/14 10/31/17 History Cholecalciferol [Vitamin D3] 2,000 unit PO DAILY@0900 09/17/17 06/15/18 History DULoxetine HCL [Cymbalta] 60 mg PO DAILY@89902/02/17 10/31/17 History Lansoprazole [Prevacid] 30 mg PO DAILY@89902/02/17 10/31/17 History Multivitamins, Thera [Multivitamin 1 tab PO DAILY@89906/16/17 10/31/17 History (formulary)] Ubidecarenone [Co Q-10] 400 mg PO DAILY@89906/16/17 10/31/17 History Bifidobacterium Infantis [Align] 4 mg PO DAILY@89909/18/17 10/31/17 History Isosorbide Mononitrate ER [Imdur] 60 mg PO DAILY@89909/18/17 10/31/17 History Nitroglycerin Sl Tabs [Nitrostat] 0.4 mg SUBLINGUAL Q5M PRN 09/18/17 10/31/17 History Apixaban [Eliquis] 5 mg PO BID@10/31/17 10/31/17 History Aspirin 81 mg PO DAILY@89910/31/17 10/31/17 History Atorvastatin [Lipitor] 80 mg PO HS@2100 10/31/17 10/31/17 History Calcium Carbonate 648mg 648 mg PO BID@10/31/17 10/31/17 History Dulaglutide [Trulicity] 0.75 mg SQ WE 10/31/17 10/31/17 History Fenofibrate [Lofibra] 160 mg PO DAILY@89910/31/17 10/31/17 History Gabapentin [Neurontin] 100 mg PO TID@,,10/31/17 10/31/17 History HYDROcodone/APAP 10-325MG [[place] 1 tab PO Q4HR PRN 10/31/17 10/31/17 History 10-325] INSULIN LISPRO (humaLOG) [humaLOG] 4 units SQ AC-TID@,,10/31/17 10/31/17 History INSULIN LISPRO (humaLOG) [humaLOG] See Protocol SQ ACHS 10/31/17 10/31/17 History Insulin Glargine [Lantus] 10 units SQ HS@2100 10/31/17 10/31/17 History Ketorolac 0.5% Ophth Soln [Acular] 1 drops LEFT EYE BID 10/31/17 10/31/17 History Lifitegrast [Xiidra] 1 drop BOTH EYES BID 10/31/17 10/31/17 History Lisinopril [Zestril] 5 mg PO DAILY@0900 10/31/17 10/31/17 History Metoprolol Succinate (ER) [Toprol 75 mg PO DAILY@0910/31/17 10/31/17 History Xl] traMADol HCL [Ultram] 50 mg PO Q4HR PRN 10/31/17 10/31/17 History Allergies Allergy/AdvReac Type Severity Reaction Status Date / Time adhesive Allergy Itching Verified 10/31/17 23:33 codeine Allergy Hallucinati Verified 10/31/17 23:33 ons dipyridamole Allergy heart Verified 10/31/17 23:33 [From Persantine] stopped latex AdvReac Rash/Hives Verified 10/31/17 23:33 metformin AdvReac "passed Verified 10/31/17 23:33 out" Physical Exam Vitals: Vital Signs Temp Pulse Pulse Resp BP BP Pulse Ox 11/01/17 02:16 97.4 F L 116 H 18 109/70 97 11/01/17 00:58 97.1 F L 116 H 18 132/80 97 11/01/17 00:48 97 F L 119 H 18 137/87 97 11/01/17 00:22 118 H 16 137/75 98 10/31/17 23:36 116 H 18 147/75 97 10/31/17 23:06 97 F L 122 H 20 162/80 96 Intake and Output 10/31/17 11/01/17 11/01/17 22:59 06:59 14:59 Intake Total 0 Output Total 250 Balance -250 Intake: Oral 0 Output: Urine 250 Other: Voiding Method Toilet Diaper Weight 60 kg General appearance: cooperative, no acute distress - EENT Eyes: anicteric sclerae, EOMI, PERRLA ENT: NA/AT, normal oropharynx - Neck Neck: no lymphadenopathy, normal ROM, no other, no rigidity, no stridor, no thyromegaly - Respiratory Respiratory: bilateral: CTA, negative: diminished, dullness, rales, rhonchi - Cardiovascular Rhythm: regular Heart sounds: normal: S1, S2 Abnormal Heart Sounds: systolic murmur, no diastolic murmur, no rub, no S3 Gallop, no S4 Gallop, no click, no other - Gastrointestinal General gastrointestinal: normal bowel sounds, soft - Integumentary Integumentary: normal, normal turgor. There is 1+ pedal edema bilaterally. On the right foot tips of all her toes are black. On the left third and fourth toes are black at the distal phalanx. Pulses by Doppler. - Neurologic Neurologic: CNII-XII intact - Musculoskeletal Musculoskeletal: gait normal, strength equal bilaterally - Psychiatric Psychiatric: A&O x's 3, appropriate affect, intact judgment & insight Results CBC & Chem 7: 10/31/17 23:24 10/31/17 23:24 Labs: Abnormal Lab Results - Last 24 Hours (Table) 10/31/17 10/31/17 10/31/17 Range/Units 23:24 23:24 23:24 RDW 15.7 H (11.5-15.5) % Lymphocytes # 0.8 L (1.0-4.8) k/uL INR (<1.2) Carbon Dioxide 17 L (22-30) mmol/L BUN 19 H (7-17) mg/dL Glucose 336 H (74-99) mg/dL POC Glucose (mg/dL) (75-99) mg/dL Magnesium 1.5 L (1.6-2.3) mg/dL Troponin I 0.060 H* (0.000-0.034) ng/mL Total Protein 6.0 L (6.3-8.2) g/dL 10/31/17 11/01/17 11/01/17 Range/Units 23:24 01:27 05:42 RDW (11.5-15.5) % Lymphocytes # (1.0-4.8) k/uL INR 1.2 H (<1.2) Carbon Dioxide (22-30) mmol/L BUN (7-17) mg/dL Glucose (74-99) mg/dL POC Glucose (mg/dL) 313 H 254 H (75-99) mg/dL Magnesium (1.6-2.3) mg/dL Troponin I (0.000-0.034) ng/mL Total Protein (6.3-8.2) g/dL 11/01/17 Range/Units 05:49 RDW (11.5-15.5) % Lymphocytes # (1.0-4.8) k/uL INR (<1.2) Carbon Dioxide (22-30) mmol/L BUN (7-17) mg/dL Glucose (74-99) mg/dL POC Glucose (mg/dL) (75-99) mg/dL Magnesium (1.6-2.3) mg/dL Troponin I 0.308 H* (0.000-0.034) ng/mL Total Protein (6.3-8.2) g/dL Thrombosis Risk Factor Assmnt - DVT/VTE Prophylaxis DVT/VTE Prophylaxis: Pharmacologic Prophylaxis ordered - Choose All That Apply Each Risk Factor Represents 2 Points: Age 61-74 years, Arthroscopic surgery Thrombosis Risk Factor Assessment Total Risk Factor Score: 4 Thrombosis Risk Factor Assessment Level: Moderate Risk Assessment and Plan Plan: 1. Acute nausea and vomiting most likely secondary to gastroenteritis, possible viral. Continue Levaquin and Flagyl, morphine for pain, Zofran for nausea. Diet clear liquid only. CAT scan of the abdomen and pelvis with contrast ordered. 2. Chest pain with abnormal EKG and elevated the second troponin, rule out for non-ST elevated myocardial infarction. Dr. Ying has evaluated and patient started on heparin drip. Continue aspirin, Lipitor, Imdur, Pradaxa, Plavix, fenofibrate, Toprol-XL. Echocardiogram ordered 3. Severe peripheral artery disease post extensive surgical treatment by her vascular surgeon at [facility] and subsequently completed 3 weeks of rehab. Patient is noted to have a black toes on her left and black tips of her toes on the right with pulses by Doppler. Consult with Dr. Jimenez. We have requested records from [facility]. 4. Hypertension, hypertensive cardiovascular disease with elevated blood sugars at home. Continue lisinopril 5 mg daily, Imdur 60 mg daily, Toprol-XL. 5. Chronic CKD stage II, stable. 6. CAD post CABG with ischemic cardiopathy post AICD. Continue treatment as in paragraph #2. 7. Carotid artery disease status post carotid endarterectomies. Continue with aspirin, Plavix, Lipitor for secondary prevention. 8. Ucontrolled diabetes mellitus type 2 with hyperglycemia and PVD complications, neuropathy. Check A1c. Continue Levemir 10 units at bedtime, NovoLog 4 units with meals and scale. At home patient is on trulicity, Lantus 10 units at bedtime and Humalog 4 units with meals and as scheduled. 9. Hyperlipidemia. Continue patient on Lipitor 80 mg orally once every day. 10. History of left subclavian stenosis. Post stenting. Stable at this time. 11. Hypomagnesemia, replacement. 12. History of GERD. Continue patient on Prevacid 30 mg orally once every day. 13. Vitamin D deficiency. Continue patient on vitamin D 1000 units once every day. 14. Recurrent depression. Continue Cymbalta 60 mg orally once every day. 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 18. DVT prophylaxis. 19. GI prophylaxis. Continue PPI. CODE STATUS: full code. Patient will be admitted for a minimum of 2 night stay. Discharge plan: To be determined Impression and plan of care have been directed as dictated by the signing physician. Edie Martinez nurse practitioner acting as scribe for signing physician.
[2017-11-01] MEDS: HEPARIN SODIUM,PORCINE/D5W PMX 25,000 UNIT in DEXTROSE/WATER 1 500ML.BAG IV SCH (11:26)
--- NOTE | 2017-11-01 11:26 | CONS ---
CONSULTATION Caren Colon was admitted with nausea, vomiting, and abdominal pain. Cardiology is consulted because this morning she started complaining of severe chest discomfort that was relieved with nitroglycerin. When I saw her, the pain was relieved with nitroglycerin and morphine. A 12-lead ECG showed sinus tachycardia with ST depression in lead V6. This patient is initially admitted with nausea, vomiting. She has been taking medications regularly. MEDICATIONS: Her medications include Plavix, vitamins, isosorbide, apixaban, aspirin, atorvastatin, insulin, lisinopril metoprolol. She did not receive her metoprolol yesterday and she did not receive any IV metoprolol either when she came in with nausea and vomiting. ALLERGIES: To ADHESIVE TAPE, LATEX, METFORMIN. REVIEW OF SYSTEMS: No fever chills or night. No cough or expectoration. She had nausea, vomiting. No diarrhea, hematuria, dysuria. No strokes, seizures or skin lesions. No musculoskeletal complaints. PAST HISTORY: Past history of coronary artery disease, status post stenting. Past history of peripheral vascular disease, status post stenting and surgery. Past history coronary artery bypass grafting, past surgery of hysterectomy and bilateral carotid endarterectomy. EXAMINATION: On examination her blood pressure was 162/80 mmHg, 147/75 mmHg and was elevated and she had not taken her medications yesterday. Pulse rate is 118 beats per minute. She is afebrile. Bilateral carotid bruits are audible. Systolic murmur over the precordium. Breath sounds are reduced bilaterally. Abdomen is soft. Extremities are warm. Trophic changes are noted. LABS: Reviewed. First troponin was normal. ECG was reviewed. ST depression noted in V6 only. IMPRESSION: A 72-year-old female with known severe coronary artery disease and peripheral vascular disease, who initially and was admitted with nausea and vomiting, could not keep her medications down, did not receive oral medications. Her blood pressure is elevated this morning. She was having chest pain with sinus tachycardia with ST depression in V6 only. First troponin normal. SUGGEST: 1. Start IV heparin. 2. Blood pressure control. Discussed with primary attending. Resumption of home medications discussed. 3. Serial cardiac enzymes and a 2D echo and Doppler study. MMODL / IJN: [id number] /
[2017-11-01] MEDS: ASPIRIN 81 MG PO SCH (12:40)
[2017-11-01] MEDS: CHOLECALCIFEROL 1,000 UNIT TAB PO SCH (12:40)
[2017-11-01] MEDS: FENOFIBRATE 160 MG TAB PO SCH (12:41)
[2017-11-01] MEDS: CLOPIDOGREL 75 MG TAB PO SCH (12:41)
[2017-11-01] MEDS: GABAPENTIN 100 MG CAP PO SCH ×3 (12:41→16:53)
[2017-11-01] MEDS: APIXABAN 5 MG TAB PO SCH ×2 (12:41→20:16)
[2017-11-01] MEDS: DULoxetine HCL 60 MG CAPSULE.DR PO SCH (12:41)
[2017-11-01] MEDS: ISOSORBIDE MONONITRATE ER 60 MG TAB.ER.24H PO SCH (12:42)
[2017-11-01] MEDS: CALCIUM CARBONATE 500 MG CHEWABLE PO SCH ×2 (12:42→20:16)
[2017-11-01] MEDS: LACTOBACILLUS ACIDOPH & BULGAR 1 EACH PACKET PO SCH (12:42)
[2017-11-01] MEDS: LISINOPRIL 5 MG TAB PO SCH (12:43)
[2017-11-01] MEDS: PANTOPRAZOLE 40 MG TABLET PO SCH (12:43)
[2017-11-01] MEDS: Lifitegrast [Xiidra] 1 DROP BOTH EYES SCH ×2 (12:43→20:19)
[2017-11-01] MEDS: metroNIDAZOLE 500 MG TAB PO SCH ×3 (12:43→20:16)
[2017-11-01 12:44] LABS: Glucose,Whole Blood 281 mg/dL (75-99)
--- NOTE | 2017-11-01 12:47 | CONS ---
CONSULTATION This is 72-year-old female. She has been admitted with history of chest pain, nausea, vomiting. The patient had a long-standing history of coronary artery disease. Patient had a coronary stent surgery inserted and CABG in the past. The patient also has history of subclavian carotid stenting and also post bilateral carotid endarterectomy. The patient has severe peripheral vascular disease. Patient went to [facility]. The patient had extensive vascular procedure done, most likely aortobifemoral bypass. She has developed some dry gangrene changes of the toes and she has some chronic wound on the dorsal aspect of the foot. The patient is supposed to see her vascular surgeon in 2 weeks period of time. She has been admitted for medical reason. PAST SURGICAL HISTORY: History of coronary artery disease and bypass, history of CVA in the past, history of diabetes mellitus, history of hyperlipidemia, hypertension. EXAMINATION: Patient was seen in her room patient and lying comfortably. NECK: Supple. Chest has a few crackles. ABDOMEN: Soft. The patient has abdominal incision and also both groin incision from the bypass. Posterior tibial by the Doppler. The patient has some pregangrenous changes of the toes. At this point, patient is stable from a vascular point of view. When patient is discharged from the hospital, she will follow with his vascular surgeon at [facility]. At this point, patient does not need any major vascular intervention. MMODL / IJN: [id number] /
--- NOTE | 2017-11-01 12:49 | CT ---
EXAMINATION TYPE: CT abdomen pelvis w con DATE OF EXAM: 11/01/2017 COMPARISON: 05/21/2016 HISTORY: Abdominal pain, vomiting, nausea and diarrhea CT DLP: 1192 mGycm Automated exposure control for dose reduction was used. TECHNIQUE: Helical acquisition of images was performed from the lung bases through the pelvis. CONTRAST: Performed with Oral Contrast and with IV Contrast, patient injected with 100 mL of Isovue 3 00. FINDINGS: LUNG BASES: Tiny pleural effusions noted, greater on the right. There is evidence of mild interstitia l phase pulmonary edema. Cardiac pacemaker, changes incidentals to CABG, mild-moderate cardiomegaly. No pericardial effusion. LIVER/GB: No significant abnormality is appreciated. PANCREAS: No significant abnormality is seen. SPLEEN: No significant abnormality is seen. ADRENALS: No significant abnormality is seen. KIDNEYS: No significant abnormality is seen. PERITONEAL CAVITY: No free air is visualized. ABDOMINAL ADENOPATHY: None visualized REPRODUCTIVE ORGANS: No significant abnormality is seen URINARY BLADDER: No significant abnormality is seen. PELVIC ADENOPATHY: None visualized. OSSEOUS STRUCTURES: No significant abnormality is seen. BOWEL: The colon is collapsed and rather featureless, nonspecific findings. There are occasional subc entimeter diverticula noted. The small bowel is collapsed. The stomach is distended, the duodenum is collapsed. VASCULATURE: No acute findings. IMPRESSION: 1. HOLLOW VISCERA: NONSPECIFIC GASTRIC DISTENTION. 2. INCIDENTAL: MILD INTERSTITIAL PHASE PULMONARY EDEMA WITH BILATERAL SMALL PLEURAL EFFUSIONS, GREAT ER ON THE RIGHT.
[2017-11-01 13:41] LABS: Hemoglobin A1C 5.2 % (4.0-6.0)
[2017-11-01] MEDS: HYDROcodone/APAP 10-325MG 1 EACH TAB PO PRN ×2 (15:31→20:21)
[2017-11-01 16:39] LABS: Glucose,Whole Blood 313 mg/dL (75-99)
[2017-11-01] MEDS: KETOROLAC 0.5% OPHTH DROPS 5 ML BTL LEFT EYE SCH ×2 (16:54→20:19)
[2017-11-01] MEDS: LEVOFLOXACIN 500MG-D5W PMX 500 MG in DEXTROSE/WATER 1 100ML.BAG IVPB SCH (18:30)
[2017-11-01] MEDS: ATORVASTATIN 80 MG TAB PO SCH (20:16)
[2017-11-01 20:36] LABS: Glucose,Whole Blood 99 mg/dL (75-99)
[2017-11-01] MEDS: INSULIN DETEMIR 100 UNIT/ML 10 ML VIAL SQ SCH (20:54)
[2017-11-02 06:07] LABS: Glucose,Whole Blood 170 mg/dL (75-99)
[2017-11-02] MEDS: INSULIN ASPART 100 UNIT/ML 1 ML 10 ML VIAL SQ SCH ×7 (06:34→21:08)
[2017-11-02 06:37] LABS: Basophils % (A) 0 %; Eosinophils # (A) 0.1 k/uL (0-0.7); Eosinophils % (A) 1 %; HCT 29.7 % (34.0-46.0); Hypochromasia Marked; Lymphocytes # (A) 1.2 k/uL (1.0-4.8); Lymphocytes % (A) 18 %; MCH 28.7 pg (25.0-35.0); MCHC 30.8 g/dL (31.0-37.0); MCV 93.3 fL (80.0-100.0); Mean Platelet Volume 7.6; Monocytes # (A) 0.4 k/uL (0-1.0); Monocytes % (A) 5 %; Neutrophils # (A) 5.3 k/uL (1.3-7.7); Neutrophils % (A) 75 %; Platelet Count 258 k/uL (150-450); Poikilocytosis Slight; RBC 3.18 m/uL (3.80-5.40); RDW 15.7 % (11.5-15.5)
[2017-11-02 06:43] LABS: Calcium 8.8 mg/dL (8.4-10.2); Potassium 4.5 mmol/L (3.5-5.1)
[2017-11-02 06:44] LABS: HGB 9.1 gm/dL (11.4-16.0)
[2017-11-02] MEDS: ASPIRIN 81 MG PO SCH (09:55)
[2017-11-02] MEDS: CALCIUM CARBONATE 500 MG CHEWABLE PO SCH ×2 (09:55→19:49)
[2017-11-02] MEDS: LACTOBACILLUS ACIDOPH & BULGAR 1 EACH PACKET PO SCH (10:03)
[2017-11-02] MEDS: METOPROLOL SUCCINATE (ER) 100 MG TAB.ER.24H PO SCH (10:03)
[2017-11-02] MEDS: Lifitegrast [Xiidra] 1 DROP BOTH EYES SCH ×2 (10:03→19:45)
[2017-11-02] MEDS: CHOLECALCIFEROL 1,000 UNIT TAB PO SCH (10:07)
[2017-11-02] MEDS: DULoxetine HCL 60 MG CAPSULE.DR PO SCH (10:07)
[2017-11-02] MEDS: CLOPIDOGREL 75 MG TAB PO SCH (10:07)
[2017-11-02] MEDS: FENOFIBRATE 160 MG TAB PO SCH (10:07)
[2017-11-02] MEDS: GABAPENTIN 100 MG CAP PO SCH ×3 (10:08→19:45)
[2017-11-02] MEDS: ISOSORBIDE MONONITRATE ER 60 MG TAB.ER.24H PO SCH (10:08)
[2017-11-02] MEDS: KETOROLAC 0.5% OPHTH DROPS 5 ML BTL LEFT EYE SCH ×2 (10:09→19:45)
[2017-11-02] MEDS: metroNIDAZOLE 500 MG TAB PO SCH ×3 (10:09→19:46)
[2017-11-02] MEDS: PANTOPRAZOLE 40 MG TABLET PO SCH (10:10)
[2017-11-02] MEDS: HYDROcodone/APAP 10-325MG 1 EACH TAB PO PRN (10:14)
[2017-11-02] MEDS: LISINOPRIL 5 MG TAB PO SCH (10:15)
--- NOTE | 2017-11-02 11:38 | P.PN ---
Subjective Progress Note Date: 11/02/17 This is a 72-year-old female patient of Dr. Azul with a previous medical history significant for coronary artery disease status post coronary artery bypass graft with ischemic cardiomyopathy and percutaneous coronary intervention and a total of 4 stents placement last one was put in the LAD back in November 2014, AICD placement, history of left subclavian stenosis status post stenting, carotid artery disease status post bilateral carotid endarterectomies , severe peripheral arterial occlusive disease. She follows with Dr. Amezcua at [facility], vascular surgeon for possible revascularization of the left lower extremity, however patient underwent angiogram was not a candidate for any surgical intervention according to him and she was placed on Pletal. She had a recent hospitalization in September for acute loss of motor functioning bilateral leg accompanied by sudden paresthesias bilaterally lower extremity due to spinal stenosis and acute kidney injury and discharged home. Pataialbino was recently hospitalized at [facility] for total of 5 weeks and 3 weeks of that being rehab. She had extensive procedures done by her vascular surgeon. She apparently was discharged from rehab yesterday. Last night Dr. Polanco received a call from her regarding her blood pressure being high. She also had nausea and vomiting. Patient is also complaining of abdominal pain. She denies any blood in her stools. Her stools have been dark but not black. She came into [facility] emergency center for evaluation. White count was 8.4, troponins were 0.060 and 0.308. Patient did develop chest pain after she was here and she received M morphine 4 mg which has resolved the pain. She stated the pain was in the midsternal area. Chest x -ray showed no acute findings as well as abdominal series. Patient was admitted to the selective care unit and has been seen by Dr. Ying and patient was started on heparin drip. Consult was also admitted for Dr. Jimenez. Patient is noted to have black toes on the left third and fourth digits and blackness at the tips of toes on the right. Patient is to return to Dr. Amezcua in 2 weeks for removal of stitches. 11/02: : Nonspecific gastric distention. Incidental mild interstitial phase pulmonary edema with bilateral small pleural effusions greater on the right. Patient is followed by cardiology. Dr. Jimenez has seen the patient and from a vascular point of view, is stable for discharge and follow-up with her vascular surgeon in [facility]. Third troponin was 0.445. She is tentatively scheduled for heart catheterization tomorrow. She denies having any chest pain. Capillary blood glucose has been running anywhere from 99-313. Diet will be advanced to full liquid for today. Objective - Vital Signs Vital signs: Vital Signs Temp 97.6 F 11/01/17 20:00 Pulse 128 H 11/02/17 04:00 Resp 18 11/02/17 04:00 BP 132/80 11/02/17 04:00 Pulse Ox 96 11/02/17 04:00 Intake & Output 11/01/17 11/02/17 11/02/17 18:59 06:59 18:59 Intake Total 1404.88 466.4 Output Total 0 Balance 1404.88 466.4 Weight 63.7 kg Intake: Intake, IV Titration 1404.88 176.4 Amount Heparin Sodium,Porcine/ 104.88 176.4 D5w Pmx 25,000 unit In Dextrose/Water 1 500ml. bag @ 12 UNITS/KG/HR 14.4 mls/hr IV .Q24H [facility] Rx#: [id number] Magnesium Sulfate-D5w Pmx 200 1 gm In Dextrose/Water 1 100ml.bag @ 100 mls/hr IVPB Q1H [facility] Rx#: [id number] Sodium Chloride 0.9% 1, 100 000 ml @ 100 mls/hr IV . Q10H [facility] Rx#:[id number] Sodium Chloride 0.9% 1, 1000 000 ml @ 999 mls/hr IV . Q1H1M [facility] Rx#:[id number] Oral 290 Output: Urine 0 Other: Voiding Method Toilet Toilet Diaper Diaper # Voids 2 - Exam General appearance: cooperative, no acute distress - EENT Eyes: anicteric sclerae, EOMI, PERRLA ENT: NA/AT, normal oropharynx - Neck Neck: no lymphadenopathy, normal ROM, no other, no rigidity, no stridor, no thyromegaly - Respiratory Respiratory: bilateral: CTA, negative: diminished, dullness, rales, rhonchi - Cardiovascular Rhythm: regular Heart sounds: normal: S1, S2 Abnormal Heart Sounds: systolic murmur, no diastolic murmur, no rub, no S3 Gallop, no S4 Gallop, no click, no other - Gastrointestinal General gastrointestinal: normal bowel sounds, soft - Integumentary Integumentary: normal, normal turgor. There is 1+ pedal edema bilaterally. On the right foot tips of all her toes are black. On the left third and fourth toes are black at the distal phalanx. Pulses by Doppler. - Neurologic Neurologic: CNII-XII intact - Musculoskeletal Musculoskeletal: gait normal, strength equal bilaterally - Psychiatric Psychiatric: A&O x's 3, appropriate affect, intact judgment & insight - Labs CBC & Chem 7: 11/02/17 05:38 11/02/17 05:38 Labs: Abnormal Lab Results - Last 24 Hours (Table) 11/01/17 11/01/17 11/01/17 Range/Units 08:45 12:40 16:35 RBC (3.80-5.40) m/uL Hgb (11.4-16.0) gm/dL Hct (34.0-46.0) % MCHC (31.0-37.0) g/dL RDW (11.5-15.5) % APTT (22.0-30.0) sec Sodium (137-145) mmol/L Glucose (74-99) mg/dL POC Glucose (mg/dL) 281 H 313 H (75-99) mg/dL Troponin I 0.445 H* (0.000-0.034) ng/mL 11/01/17 11/02/17 11/02/17 Range/Units 18:06 05:38 05:38 RBC 3.18 L (3.80-5.40) m/uL Hgb 9.1 L D (11.4-16.0) gm/dL Hct 29.7 L (34.0-46.0) % MCHC 30.8 L (31.0-37.0) g/dL RDW 15.7 H (11.5-15.5) % APTT 65.7 H (22.0-30.0) sec Sodium 136 L (137-145) mmol/L Glucose 147 H (74-99) mg/dL POC Glucose (mg/dL) (75-99) mg/dL Troponin I (0.000-0.034) ng/mL 11/02/17 11/02/17 Range/Units 05:38 06:06 RBC (3.80-5.40) m/uL Hgb (11.4-16.0) gm/dL Hct (34.0-46.0) % MCHC (31.0-37.0) g/dL RDW (11.5-15.5) % APTT 35.2 H (22.0-30.0) sec Sodium (137-145) mmol/L Glucose (74-99) mg/dL POC Glucose (mg/dL) 170 H (75-99) mg/dL Troponin I (0.000-0.034) ng/mL Assessment and Plan Plan: 1. Acute nausea and vomiting most likely secondary to gastroenteritis, possible viral. Continue Levaquin and Flagyl, morphine for pain, Zofran for nausea. Diet advanced to full liquids. CAT scan of the abdomen and pelvis with contrast ordered. 2. Chest pain with non-ST elevated myocardial infarction. Dr. Ying has evaluated and patient started on heparin drip. Continue aspirin, Lipitor, Imdur , Pradaxa, Plavix, fenofibrate, Toprol-XL. Echocardiogram as above. Heart catheterization for tomorrow. 3. Severe peripheral artery disease post extensive surgical treatment by her vascular surgeon at [facility] and subsequently completed 3 weeks of rehab. Patient is noted to have a black toes on her left and black tips of her toes on the right with pulses by Doppler. Consult with Dr. Jimenez is appreciated. Patient has been cleared for discharge with recommendations to follow up with her vascular surgeon at [facility]. 4. Hypertension, hypertensive cardiovascular disease with elevated blood sugars at home. Continue lisinopril 5 mg daily, Imdur 60 mg daily, Toprol-XL. 5. Chronic CKD stage II, stable. 6. CAD post CABG with ischemic cardiopathy post AICD. Continue treatment as in paragraph #2. 7. Carotid artery disease status post carotid endarterectomies. Continue with aspirin, Plavix, Lipitor for secondary prevention. 8. Ucontrolled diabetes mellitus type 2 with hyperglycemia and PVD complications, neuropathy. Check A1c. Continue Levemir 10 units at bedtime, NovoLog 4 units with meals and scale. At home patient is on trulicity, Lantus 10 units at bedtime and Humalog 4 units with meals and as scheduled. 9. Hyperlipidemia. Continue patient on Lipitor 80 mg orally once every day. 10. History of left subclavian stenosis. Post stenting. Stable at this time. 11. Hypomagnesemia, replacement. 12. History of GERD. Continue patient on Prevacid 30 mg orally once every day. 13. Vitamin D deficiency. Continue patient on vitamin D 1000 units once every day. 14. Recurrent depression. Continue Cymbalta 60 mg orally once every day. 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 18. DVT prophylaxis. 19. GI prophylaxis. Continue PPI. CODE STATUS: full code. Discharge plan: To be determined Impression and plan of care have been directed as dictated by the signing physician. Edie Martinez nurse practitioner acting as scribe for signing physician.
[2017-11-02] MEDS: ONDANSETRON 4 MG/2 ML VIAL IVP PRN ×2 (11:50→17:48)
[2017-11-02 11:58] LABS: Glucose,Whole Blood 197 mg/dL (75-99)
--- NOTE | 2017-11-02 12:15 | PN ---
PROGRESS NOTE Caren Colon is a 72-year-old female who had chest discomfort yesterday consistent with angina. She did have abnormal cardiac enzymes consistent with acute myocardial injury. She also has sinus tachycardia and I am not sure why. EXAMINATION: Her blood pressure is 101/55 mmHg, pulse rate is 100 beats per minute. She is afebrile. SUGGEST: Increase her dose of metoprolol to 100 mg p.o. daily. Hemoglobin is 9.1. Continue aspirin, atorvastatin and Plavix and continue IV heparin and stop IV heparin tomorrow. I will review her data from the office and I may consider further workup for coronary artery disease. I will discuss this with the primary whizzer operator tomorrow. MMODL / IJN: [id number] /
[2017-11-02] MEDS: HEPARIN SODIUM,PORCINE/D5W PMX 25,000 UNIT in DEXTROSE/WATER 1 500ML.BAG IV SCH (12:47)
[2017-11-02 16:24] LABS: Glucose,Whole Blood 169 mg/dL (75-99)
[2017-11-02] MEDS: NITROGLYCERIN SL TABS 0.4 MG TAB SUBLINGUAL PRN ×2 (16:49→16:55)
[2017-11-02] MEDS: LEVOFLOXACIN 500MG-D5W PMX 500 MG in DEXTROSE/WATER 1 100ML.BAG IVPB SCH (17:44)
[2017-11-02] MEDS: LORazepam 2 MG/ML INJ IV PRN (19:46)
[2017-11-02] MEDS: ATORVASTATIN 80 MG TAB PO SCH (19:49)
[2017-11-02 20:49] LABS: Glucose,Whole Blood 200 mg/dL (75-99)
[2017-11-02] MEDS: INSULIN DETEMIR 100 UNIT/ML 10 ML VIAL SQ SCH (21:08)
[2017-11-03] MEDS: NITROGLYCERIN OINT 1 INCH/GM PACKET TOPICAL SCH ×4 (00:23→21:45)
[2017-11-03] MEDS: LORazepam 2 MG/ML INJ IV PRN (02:03)
[2017-11-03 06:20] LABS: Glucose,Whole Blood 190 mg/dL (75-99)
[2017-11-03 06:24] LABS: Basophils % (A) 0 %; Eosinophils % (A) 0 %; HCT 32.6 % (34.0-46.0); Hypochromasia Marked; Lymphocytes # (A) 1.2 k/uL (1.0-4.8); Lymphocytes % (A) 17 %; MCH 28.7 pg (25.0-35.0); MCHC 30.6 g/dL (31.0-37.0); MCV 93.6 fL (80.0-100.0); Mean Platelet Volume 7.6; Monocytes # (A) 0.4 k/uL (0-1.0); Monocytes % (A) 5 %; Neutrophils # (A) 5.3 k/uL (1.3-7.7); Neutrophils % (A) 76 %; Platelet Count 265 k/uL (150-450); RBC 3.49 m/uL (3.80-5.40); RDW 15.4 % (11.5-15.5)
[2017-11-03] MEDS: INSULIN ASPART 100 UNIT/ML 1 ML 10 ML VIAL SQ SCH ×7 (06:33→21:33)
[2017-11-03] MEDS ORDERED: ALPRAZolam 0.5 MG TAB PO PRN (08:36)
[2017-11-03] MEDS ORDERED: NITROGLYCERIN SL TABS 0.4 MG TAB SUBLINGUAL PRN (08:36)
[2017-11-03] MEDS ORDERED: SODIUM CHLORIDE 0.9% 1,000 ML in EMPTY BAG 1 BAG IV ONE (08:36)
[2017-11-03] MEDS ORDERED: ALPRAZolam 0.25 MG TAB PO PRN (08:36)
[2017-11-03] MEDS ORDERED: ASPIRIN 325 MG TAB PO STA (08:36)
[2017-11-03] MEDS ORDERED: ATORVASTATIN 80 MG TAB PO STA (08:36)
[2017-11-03] MEDS: ASPIRIN 81 MG PO SCH (08:49)
[2017-11-03] MEDS: CALCIUM CARBONATE 500 MG CHEWABLE PO SCH ×2 (08:49→21:40)
[2017-11-03] MEDS: GABAPENTIN 100 MG CAP PO SCH ×3 (08:50→17:07)
[2017-11-03] MEDS: metroNIDAZOLE 500 MG TAB PO SCH ×3 (08:50→21:43)
[2017-11-03] MEDS: CHOLECALCIFEROL 1,000 UNIT TAB PO SCH (08:51)
[2017-11-03] MEDS: LACTOBACILLUS ACIDOPH & BULGAR 1 EACH PACKET PO SCH (08:51)
[2017-11-03] MEDS: DULoxetine HCL 60 MG CAPSULE.DR PO SCH (08:51)
[2017-11-03] MEDS: FENOFIBRATE 160 MG TAB PO SCH (08:51)
[2017-11-03] MEDS: CLOPIDOGREL 75 MG TAB PO SCH (08:51)
[2017-11-03] MEDS: METOPROLOL SUCCINATE (ER) 100 MG TAB.ER.24H PO SCH (08:52)
[2017-11-03] MEDS: PANTOPRAZOLE 40 MG TABLET PO SCH (08:52)
[2017-11-03] MEDS: ISOSORBIDE MONONITRATE ER 60 MG TAB.ER.24H PO SCH (08:52)
[2017-11-03] MEDS: LISINOPRIL 5 MG TAB PO SCH (08:53)
[2017-11-03] MEDS: Lifitegrast [Xiidra] 1 DROP BOTH EYES SCH ×2 (08:53→21:45)
[2017-11-03 09:41] LABS: Glucose,Whole Blood 230 mg/dL (75-99)
[2017-11-03] MEDS: KETOROLAC 0.5% OPHTH DROPS 5 ML BTL LEFT EYE SCH ×2 (09:50→21:45)
--- NOTE | 2017-11-03 10:23 | ECHOF ---
Referral Reason:cp/cad MEASUREMENTS -------- HEIGHT: 165.1 cm WEIGHT: 59.9 kg BP: IVSd: 1.3 cm (0.6 - 1.1) LVIDd: 5.4 cm (3.9 - 5.3) LVPWd: 0.8 cm (0.6 - 1.1) IVSs: 1.6 cm LVIDs: 5.0 cm LVPWs: 0.6 cm LA Diam: 4.2 cm (2.7 - 3.8) LAESV Index (A-L): 34.34 ml/m Ao Diam: 2.4 cm (2.0 - 3.7) AV Cusp: 1.1 cm (1.5 - 2.6) LA Diam: 4.8 cm (2.7 - 3.8) MV EXCURSION: 16.659 mm (> 18.000) MV EF SLOPE: 125 mm/s (70 - 150) EPSS: 1.0 cm MV E Chauncey: 1.77 m/s MV DecT: 84 ms MV A Chauncey: 0.65 m/s MV E/A Ratio: 2.71 RAP: 5.00 mmHg RVSP: 63.30 mmHg FINDINGS -------- Paced rhythm. There is a severe generalized hypokinesia with evidence of akinetic anteroapical and also mid and apical septal area suggestive of ischemic cardiomyopathy This was a technically adequate study. The left ventricular size is normal. There is severe global hypokinesis of LV . Overall left vent ricular systolic function is severely impaired with, an EF between 20 - 25 %. The right ventricle is normal in size. The left atrium is markedly dilated. LA is moderately dilated 34-39 ml/m2 The right atrial size is normal. There is mild aortic valve sclerosis. There is no evidence of aortic regurgitation. Mild mitral annular calcification present. Moderate mitral regurgitation is present. Mild tricuspid regurgitation present. There is moderate pulmonary hypertension. The right ventric ular systolic pressure, as measured by Doppler, is 63.30mmHg. Trace/mild (physiologic) pulmonic regurgitation. The aortic root size is normal. There is no pericardial effusion. CONCLUSIONS -------- 1. Paced rhythm. 2. There is a severe generalized hypokinesia with evidence of akinetic anteroapical and also mid and apical septal area suggestive of ischemic cardiomyopathy 3. The left ventricular size is normal. 4. There is severe global hypokinesis of LV . 5. Overall left ventricular systolic function is severely impaired with, an EF between 20 - 25 %. 6. The right ventricle is normal in size. 7. The left atrium is markedly dilated. 8. LA is moderately dilated 34-39 ml/m2 9. There is mild aortic valve sclerosis. 10. Mild mitral annular calcification present. 11. Moderate mitral regurgitation is present. 12. Mild tricuspid regurgitation present. 13. There is moderate pulmonary hypertension. 14. The right ventricular systolic pressure, as measured by Doppler, is 63.30mmHg. 15. Trace/mild (physiologic) pulmonic regurgitation. 16. The aortic root size is normal. 17. There is no pericardial effusion. PLANT UTILITY PERSON: Alyssa Winter RDCS
[2017-11-03 11:10] LABS: Glucose,Whole Blood 226 mg/dL (75-99)
--- NOTE | 2017-11-03 11:36 | P.PN ---
Subjective Progress Note Date: 11/03/17 This is a 72-year-old female patient of Dr. Azul with a previous medical history significant for coronary artery disease status post coronary artery bypass graft with ischemic cardiomyopathy and percutaneous coronary intervention and a total of 4 stents placement last one was put in the LAD back in November 2014, AICD placement, history of left subclavian stenosis status post stenting, carotid artery disease status post bilateral carotid endarterectomies , severe peripheral arterial occlusive disease. She follows with Dr. Amezcua at [facility], vascular surgeon for possible revascularization of the left lower extremity, however patient underwent angiogram was not a candidate for any surgical intervention according to him and she was placed on Pletal. She had a recent hospitalization in September for acute loss of motor functioning bilateral leg accompanied by sudden paresthesias bilaterally lower extremity due to spinal stenosis and acute kidney injury and discharged home. Pataialbino was recently hospitalized at [facility] for total of 5 weeks and 3 weeks of that being rehab. She had extensive procedures done by her vascular surgeon. She apparently was discharged from rehab yesterday. Last night Dr. Polanco received a call from her regarding her blood pressure being high. She also had nausea and vomiting. Patient is also complaining of abdominal pain. She denies any blood in her stools. Her stools have been dark but not black. She came into [facility] emergency center for evaluation. White count was 8.4, troponins were 0.060 and 0.308. Patient did develop chest pain after she was here and she received M morphine 4 mg which has resolved the pain. She stated the pain was in the midsternal area. Chest x -ray showed no acute findings as well as abdominal series. Patient was admitted to the selective care unit and has been seen by Dr. Ying and patient was started on heparin drip. Consult was also admitted for Dr. Jimenez. Patient is noted to have black toes on the left third and fourth digits and blackness at the tips of toes on the right. Patient is to return to Dr. Amezcua in 2 weeks for removal of stitches. 11/02: : Nonspecific gastric distention. Incidental mild interstitial phase pulmonary edema with bilateral small pleural effusions greater on the right. Patient is followed by cardiology. Dr. Jimenez has seen the patient and from a vascular point of view, is stable for discharge and follow-up with her vascular surgeon in [facility]. Third troponin was 0.445. She is tentatively scheduled for heart catheterization tomorrow. She denies having any chest pain. Capillary blood glucose has been running anywhere from 99-313. Diet will be advanced to full liquid for today. 11/03: Echocardiogram reveals EF of 20-25% with severe global hypokinesia of the LV, LA moderately dilated at 34-39, mild aortic valve sclerosis, moderate mitral regurgitation, mild tricuspid regurgitation, moderate pulmonary hypertension. Yesterday, patient had episode of nausea and retching with chest pain. She received nitroglycerin 2. Cardiology was contacted and Nitropaste was placed and additional dose of metoprolol succinate with increased to 100 mg daily. Heart rate is running now in the 90s. Pulse ox is 97 on room air. Patient are interested in subacute rehab at [facility]. PT and OT will be added. Objective - Vital Signs Vital signs: Vital Signs Temp 97.4 F L 11/02/17 19:54 Pulse 102 H 11/03/17 03:41 Resp 18 11/03/17 03:41 BP 125/58 11/03/17 03:41 Pulse Ox 97 11/03/17 03:41 Intake & Output 11/02/17 11/03/17 11/03/17 18:59 06:59 18:59 Intake Total 584.7 842.44 Output Total 0 Balance 584.7 842.44 Weight 63.7 kg Intake: Intake, IV Titration 104.7 362.44 Amount Heparin Sodium,Porcine/ 104.7 362.44 D5w Pmx 25,000 unit In Dextrose/Water 1 500ml. bag @ 12 UNITS/KG/HR 14.4 mls/hr IV .Q[facility]H [facility] Rx#: [id number] Oral 480 480 Output: Urine 0 Other: Voiding Method Toilet Diaper # Voids 1 2 # Bowel Movements 1 1 - Exam General appearance: cooperative, no acute distress - EENT Eyes: anicteric sclerae, EOMI, PERRLA ENT: NA/AT, normal oropharynx - Neck Neck: no lymphadenopathy, normal ROM, no other, no rigidity, no stridor, no thyromegaly - Respiratory Respiratory: bilateral: CTA, negative: diminished, dullness, rales, rhonchi - Cardiovascular Rhythm: regular Heart sounds: normal: S1, S2 Abnormal Heart Sounds: systolic murmur, no diastolic murmur, no rub, no S3 Gallop, no S4 Gallop, no click, no other - Gastrointestinal General gastrointestinal: normal bowel sounds, soft - Integumentary Integumentary: normal, normal turgor. There is 1+ pedal edema bilaterally. On the right foot tips of all her toes are black. On the left third and fourth toes are black at the distal phalanx. Pulses by Doppler. - Neurologic Neurologic: CNII-XII intact - Musculoskeletal Musculoskeletal: gait normal, strength equal bilaterally - Psychiatric Psychiatric: A&O x's 3, appropriate affect, intact judgment & insight - Labs CBC & Chem 7: 11/03/17 05:48 11/02/17 05:38 Labs: Abnormal Lab Results - Last 24 Hours (Table) 11/02/17 11/02/17 11/02/17 Range/Units 11:52 11:56 16:20 RBC (3.80-5.40) m/uL Hgb (11.4-16.0) gm/dL Hct (34.0-46.0) % MCHC (31.0-37.0) g/dL APTT 43.9 H (22.0-30.0) sec POC Glucose (mg/dL) 197 H 169 H (75-99) mg/dL 11/02/17 11/02/17 11/03/17 Range/Units 18:51 20:47 05:48 RBC 3.49 L (3.80-5.40) m/uL Hgb 10.0 L (11.4-16.0) gm/dL Hct 32.6 L (34.0-46.0) % MCHC 30.6 L (31.0-37.0) g/dL APTT 65.1 H (22.0-30.0) sec POC Glucose (mg/dL) 200 H (75-99) mg/dL 11/03/17 Range/Units :18 RBC (3.80-5.40) m/uL Hgb (11.4-16.0) gm/dL Hct (34.0-46.0) % MCHC (31.0-37.0) g/dL APTT (22.0-30.0) sec POC Glucose (mg/dL) 190 H (75-99) mg/dL Assessment and Plan Plan: 1. Acute nausea and vomiting most likely secondary to gastroenteritis, possible viral. Continue Levaquin and Flagyl, morphine for pain, Zofran for nausea. Diet was advanced and the patient is nothing by mouth for heart cath. CAT scan of the abdomen and pelvis as above. 2. Chest pain with abnormal EKG and elevated the second troponin, rule out for non-ST elevated myocardial infarction. Dr. Ying has evaluated and patient started on heparin drip. Continue aspirin, Lipitor, Imdur, Pradaxa, Plavix, fenofibrate, Toprol-XL. Echocardiogram as above. Heart catheterization today with Dr. Lizama. 3. Tachycardia. Dr. Ying has increased metoprolol succinate to 100 mg daily. 4. Severe peripheral artery disease post extensive surgical treatment by her vascular surgeon at [facility] and subsequently completed 3 weeks of rehab. Patient is noted to have a black toes on her left and black tips of her toes on the right with pulses by Doppler. Consult with Dr. Tony osorio. We have requested records from [facility]. 5. Hypertension, hypertensive cardiovascular disease with elevated blood sugars at home. Continue lisinopril 5 mg daily, Imdur 60 mg daily, Toprol-XL. 6. Chronic CKD stage II, stable. 7. CAD post CABG with ischemic cardiopathy post AICD. Continue treatment as in paragraph #2. 7. Carotid artery disease status post carotid endarterectomies. Continue with aspirin, Plavix, Lipitor for secondary prevention. 8. Ucontrolled diabetes mellitus type 2 with hyperglycemia and PVD complications, neuropathy. Check A1c. Continue Levemir 10 units at bedtime, NovoLog 4 units with meals and scale. At home patient is on trulicity, Lantus 10 units at bedtime and Humalog 4 units with meals and as scheduled. 9. Hyperlipidemia. Continue patient on Lipitor 80 mg orally once every day. 10. History of left subclavian stenosis. Post stenting. Stable at this time. 11. Hypomagnesemia, replacement. 12. History of GERD. Continue patient on Prevacid 30 mg orally once every day. 13. Vitamin D deficiency. Continue patient on vitamin D 1000 units once every day. 14. Recurrent depression. Continue Cymbalta 60 mg orally once every day. 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 18. DVT prophylaxis. 19. GI prophylaxis. Continue PPI. CODE STATUS: full code. Discharge plan: PT and OT. Case management is following. Impression and plan of care have been directed as dictated by the signing physician. Edie Martinez nurse practitioner acting as scribe for signing physician.
[2017-11-03] MEDS: HEPARIN SODIUM,PORCINE/D5W PMX 25,000 UNIT in DEXTROSE/WATER 1 500ML.BAG IV SCH (13:38)
--- NOTE | 2017-11-03 14:22 | P.PN ---
Subjective Progress Note Date: 11/03/17 This is a 72-year-old female patient of Dr. Lizama in the office with a previous medical history significant for coronary artery disease status post coronary artery bypass graft with ischemic cardiomyopathy and percutaneous coronary intervention and a total of 4 stents placement last one was put in the LAD back in November 2014, AICD placement, history of left subclavian stenosis status post stenting, carotid artery disease status post bilateral carotid endarterectomies, severe peripheral arterial occlusive disease. She follows with Dr. Amezcua at [facility], vascular surgeon for possible revascularization of the left lower extremity, however patient underwent angiogram was not a candidate for any surgical intervention according to him and she was placed on Pletal. She had a recent hospitalization in September for acute loss of motor functioning bilateral leg accompanied by sudden paresthesias bilaterally lower extremity due to spinal stenosis and acute kidney injury and discharged home. Pataient was recently hospitalized at [facility] for total of 5 weeks and 3 weeks of that being rehab. She had extensive procedures done by her vascular surgeon. Patient underwent exploratory laparotomy, aortogram with runoff via ultrasound-guided access to the left arm approach, endovascular placement of aortic stents for occlusive disease of the aorta. Left iliac stents, fem-fem bypass with right great saphenous vein. During that hospitalization patient also underwent a Lexiscan which revealed a perfusion defect in the apical anterior wall region subsequently patient underwent a cardiac catheterization which revealed stable ischemic heart disease with a patent HA, saphenous vein graft to the RCA. 100% occluded circumflex with collaterals. Abnormal systolic/diastolic function, PAD. Medical therapy advised at that time. She also underwent an echocardiogram with Doppler study during that admission to [facility] which revealed an ejection fraction of 43%. Patient presented to the hospital with symptoms of nausea and vomiting, subsequent to her admission here she developed chest discomfort . Most of the data from [facility] was just received today, patient was actually scheduled to undergo cardiac catheterization today by Dr. Brady, once the information from [facility] was reviewed, the cardiac catheterization was deferred. She is denying any chest discomfort today, just complains of feeling tired. Echocardiogram with Doppler study which was performed here revealed an ejection fraction of 20-25% with severe global hypokinesia, moderate mitral regurg and moderate pulmonary hypertension. Objective - Vital Signs Vital signs: Vital Signs Temp 98.0 F 11/03/17 11:13 Pulse 79 11/03/17 13:12 Resp 16 11/03/17 13:12 BP 128/76 11/03/17 11:13 Pulse Ox 97 11/03/17 11:13 Intake & Output 11/02/17 11/03/17 11/03/17 18:59 06:59 18:59 Intake Total 584.7 842.44 456 Output Total 0 Balance 584.7 842.44 456 Weight 63.7 kg Intake: Intake, IV Titration 104.7 362.44 106 Amount Heparin Sodium,Porcine/ 104.7 362.44 106 D5w Pmx 25,000 unit In Dextrose/Water 1 500ml. bag @ 12 UNITS/KG/HR 14.4 mls/hr IV .Q24H [facility] Rx#: [id number] Oral 480 480 350 Output: Urine 0 Other: Voiding Method Toilet Toilet Diaper Diaper # Voids 1 2 # Bowel Movements 1 1 - Exam PHYSICAL EXAMINATION: GENERAL: HEENT: Head is atraumatic, normocephalic. Pupils equal, round. Sclera anicteric. Conjunctiva are clear. Mucous membranes of the mouth are moist. Neck is supple. There is no elevated jugular venous pressure.] bruit is heard. HEART EXAMINATION: Heart S1 and S2 1 systolic murmur is heard. CHEST EXAMINATION: Lungs are clear to auscultation and precussion. No chest wall tenderness is noted on palpation or with deep breathing. ABDOMEN: Soft, nontender. Bowel sounds are heard. No organomegaly noted. EXTREMITIES: 1+ bilateral peripheral edema. On the right foot, tips of the toes are black, on the left third and fourth toes a blackened discoloration is also noted. Patient has an incision at the right inner thigh, dry and intact, and place.. NEUROLOGIC patient is awake, alert and oriented -3. . - Labs CBC & Chem 7: 11/03/17 05:48 11/02/17 05:38 Labs: Abnormal Lab Results - Last 24 Hours (Table) 11/02/17 11/02/17 11/02/17 Range/Units 16:20 18:51 20:47 RBC (3.80-5.40) m/uL Hgb (11.4-16.0) gm/dL Hct (34.0-46.0) % MCHC (31.0-37.0) g/dL APTT 65.1 H (22.0-30.0) sec POC Glucose (mg/dL) 169 H 200 H (75-99) mg/dL 11/03/17 11/03/17 11/03/17 Range/Units 05:48 06:18 09:29 RBC 3.49 L (3.80-5.40) m/uL Hgb 10.0 L (11.4-16.0) gm/dL Hct 32.6 L (34.0-46.0) % MCHC 30.6 L (31.0-37.0) g/dL APTT (22.0-30.0) sec POC Glucose (mg/dL) 190 H 230 H (75-99) mg/dL 11/03/17 Range/Units 11:09 RBC (3.80-5.40) m/uL Hgb (11.4-16.0) gm/dL Hct (34.0-46.0) % MCHC (31.0-37.0) g/dL APTT (22.0-30.0) sec POC Glucose (mg/dL) 226 H (75-99) mg/dL Assessment and Plan Plan: Assessment and plan #1 acute nausea and vomiting, likely secondary to gastroenteritis, possibly viral #2 chest pain with abnormal EKG and mildly abnormal troponin. Patient recently underwent a cardiac catheterization earlier this month medical therapy advised. #3 severe peripheral arterial disease, status post recent endovascular placement of aortic stent for occlusive disease of the aorta, left iliac stent, and fem-fem bypass with great saphenous vein at [facility]. #4 Severe peripheral vascular disease #5 Hypertension #6 Chronic kidney disease stage II stable #7 Hypertension #8 CAD with prior bypass surgery and stent placements #9 Ischemic cardiomyopathy with prior AICD #10 Diabetes, uncontrolled #11 Hyperlipidemia #12 History of left subclavian stenosis status post stenting #13 Post polio #14 GERD #15 anemia Plan From cardiology's perspective, we'll maximize medical therapy. Continue IV heparin for 24 hours. Continue beta adilia, GELA inhibitor, aspirin, Lipitor, at a small dose of Aldactone to her medication regime. DNP note has been reviewed, I agree with a documented findings and plan of care. Patient was seen and examined.
[2017-11-03 16:40] LABS: Glucose,Whole Blood 103 mg/dL (75-99)
[2017-11-03] MEDS: SPIRONOLACTONE 25 MG TAB PO SCH (17:07)
[2017-11-03] MEDS: LEVOFLOXACIN 500MG-D5W PMX 500 MG in DEXTROSE/WATER 1 100ML.BAG IVPB SCH (17:13)
[2017-11-03] MEDS: HYDROcodone/APAP 10-325MG 1 EACH TAB PO PRN (17:14)
[2017-11-03 20:56] LABS: Glucose,Whole Blood 107 mg/dL (75-99)
[2017-11-03] MEDS ORDERED: METOPROLOL SUCCINATE (ER) 50 MG TAB.ER.24H PO SCH (21:00)
[2017-11-03] MEDS: INSULIN DETEMIR 100 UNIT/ML 10 ML VIAL SQ SCH (21:33)
[2017-11-03] MEDS: ATORVASTATIN 80 MG TAB PO SCH (21:40)
[2017-11-03] MEDS: APIXABAN 5 MG TAB PO SCH (21:40)
[2017-11-04 00:01] LABS: Basophils % (A) 0 %; Eosinophils # (A) 0.1 k/uL (0-0.7); Eosinophils % (A) 2 %; HCT 29.9 % (34.0-46.0); HGB 9.4 gm/dL (11.4-16.0); Hypochromasia Marked; Lymphocytes # (A) 1.5 k/uL (1.0-4.8); Lymphocytes % (A) 28 %; MCH 28.8 pg (25.0-35.0); MCHC 31.3 g/dL (31.0-37.0); Mean Platelet Volume 7.9; Monocytes # (A) 0.3 k/uL (0-1.0); Monocytes % (A) 6 %; Neutrophils # (A) 3.2 k/uL (1.3-7.7); Neutrophils % (A) 62 %; Platelet Count 215 k/uL (150-450); RBC 3.26 m/uL (3.80-5.40); RDW 15.3 % (11.5-15.5); WBC 5.2 k/uL (3.8-10.6)
[2017-11-04] MEDS: HYDROcodone/APAP 10-325MG 1 EACH TAB PO PRN ×4 (03:53→20:16)
[2017-11-04 06:09] LABS: Basophils % (A) 0 %; Eosinophils # (A) 0.1 k/uL (0-0.7); Eosinophils % (A) 2 %; HGB 9.1 gm/dL (11.4-16.0); Hypochromasia Marked; Lymphocytes # (A) 1.1 k/uL (1.0-4.8); Lymphocytes % (A) 23 %; MCH 28.1 pg (25.0-35.0); MCHC 30.5 g/dL (31.0-37.0); MCV 92.3 fL (80.0-100.0); Mean Platelet Volume 8.1; Monocytes # (A) 0.3 k/uL (0-1.0); Monocytes % (A) 6 %; Neutrophils # (A) 3.2 k/uL (1.3-7.7); Neutrophils % (A) 67 %; Platelet Count 209 k/uL (150-450); RBC 3.25 m/uL (3.80-5.40); RDW 15.2 % (11.5-15.5); WBC 4.8 k/uL (3.8-10.6)
[2017-11-04 06:10] LABS: Glucose,Whole Blood 143 mg/dL (75-99)
[2017-11-04 06:18] LABS: Calcium 8.4 mg/dL (8.4-10.2)
[2017-11-04] MEDS: INSULIN ASPART 100 UNIT/ML 1 ML 10 ML VIAL SQ SCH ×7 (06:40→21:24)
[2017-11-04] MEDS: SPIRONOLACTONE 25 MG TAB PO SCH ×2 (09:00→11:30)
[2017-11-04] MEDS: LISINOPRIL 5 MG TAB PO SCH ×2 (09:00→11:30)
[2017-11-04] MEDS: NITROGLYCERIN OINT 1 INCH/GM PACKET TOPICAL SCH (09:14)
[2017-11-04] MEDS: CHOLECALCIFEROL 1,000 UNIT TAB PO SCH (09:37)
[2017-11-04] MEDS: ASPIRIN 81 MG PO SCH (09:37)
[2017-11-04] MEDS: METOPROLOL SUCCINATE (ER) 100 MG TAB.ER.24H PO SCH (09:37)
[2017-11-04] MEDS: metroNIDAZOLE 500 MG TAB PO SCH ×3 (09:38→20:15)
[2017-11-04] MEDS: DULoxetine HCL 60 MG CAPSULE.DR PO SCH (09:38)
[2017-11-04] MEDS: FENOFIBRATE 160 MG TAB PO SCH (09:38)
[2017-11-04] MEDS: CALCIUM CARBONATE 500 MG CHEWABLE PO SCH ×2 (09:38→20:15)
[2017-11-04] MEDS: APIXABAN 5 MG TAB PO SCH ×2 (09:38→20:14)
[2017-11-04] MEDS: ISOSORBIDE MONONITRATE ER 60 MG TAB.ER.24H PO SCH (09:38)
[2017-11-04] MEDS: CLOPIDOGREL 75 MG TAB PO SCH (09:38)
[2017-11-04] MEDS: GABAPENTIN 100 MG CAP PO SCH ×3 (09:38→16:30)
[2017-11-04] MEDS: LACTOBACILLUS ACIDOPH & BULGAR 1 EACH PACKET PO SCH (09:39)
[2017-11-04] MEDS: Lifitegrast [Xiidra] 1 DROP BOTH EYES SCH ×2 (09:39→20:15)
[2017-11-04] MEDS: PANTOPRAZOLE 40 MG TABLET PO SCH (09:39)
[2017-11-04] MEDS: KETOROLAC 0.5% OPHTH DROPS 5 ML BTL LEFT EYE SCH ×2 (10:19→20:15)
[2017-11-04 10:51] LABS: Cholesterol 96 mg/dL (<200); HDL Cholesterol 34 mg/dL (40-60); LDL Cholesterol,Calculated 42 mg/dL (0-99); Triglycerides 101 mg/dL (<150)
[2017-11-04 11:07] LABS: Glucose,Whole Blood 146 mg/dL (75-99)
--- NOTE | 2017-11-04 12:24 | P.PN ---
Subjective Progress Note Date: 11/04/17 This is a 72-year-old female patient of Dr. Azul with a previous medical history significant for coronary artery disease status post coronary artery bypass graft with ischemic cardiomyopathy and percutaneous coronary intervention and a total of 4 stents placement last one was put in the LAD back in November 2014, AICD placement, history of left subclavian stenosis status post stenting, carotid artery disease status post bilateral carotid endarterectomies , severe peripheral arterial occlusive disease. She follows with Dr. Amezcua at [facility], vascular surgeon for possible revascularization of the left lower extremity, however patient underwent angiogram was not a candidate for any surgical intervention according to him and she was placed on Pletal. She had a recent hospitalization in September for acute loss of motor functioning bilateral leg accompanied by sudden paresthesias bilaterally lower extremity due to spinal stenosis and acute kidney injury and discharged home. Pataialbino was recently hospitalized at [facility] for total of 5 weeks and 3 weeks of that being rehab. She had extensive procedures done by her vascular surgeon. She apparently was discharged from rehab yesterday. Last night Dr. Polanco received a call from her regarding her blood pressure being high. She also had nausea and vomiting. Patient is also complaining of abdominal pain. She denies any blood in her stools. Her stools have been dark but not black. She came into [facility] emergency center for evaluation. White count was 8.4, troponins were 0.060 and 0.308. Patient did develop chest pain after she was here and she received M morphine 4 mg which has resolved the pain. She stated the pain was in the midsternal area. Chest x -ray showed no acute findings as well as abdominal series. Patient was admitted to the selective care unit and has been seen by Dr. Ying and patient was started on heparin drip. Consult was also admitted for Dr. Jimenez. Patient is noted to have black toes on the left third and fourth digits and blackness at the tips of toes on the right. Patient is to return to Dr. Amezcua in 2 weeks for removal of stitches. 11/02: : Nonspecific gastric distention. Incidental mild interstitial phase pulmonary edema with bilateral small pleural effusions greater on the right. Patient is followed by cardiology. Dr. Jimenez has seen the patient and from a vascular point of view, is stable for discharge and follow-up with her vascular surgeon in [facility]. Third troponin was 0.445. She is tentatively scheduled for heart catheterization tomorrow. She denies having any chest pain. Capillary blood glucose has been running anywhere from 99-313. Diet will be advanced to full liquid for today. 11/03: Echocardiogram reveals EF of 20-25% with severe global hypokinesia of the LV, LA moderately dilated at 34-39, mild aortic valve sclerosis, moderate mitral regurgitation, mild tricuspid regurgitation, moderate pulmonary hypertension. Yesterday, patient had episode of nausea and retching with chest pain. She received nitroglycerin 2. Cardiology was contacted and Nitropaste was placed and additional dose of metoprolol succinate with increased to 100 mg daily. Heart rate is running now in the 90s. Pulse ox is 97 on room air. Patient are interested in subacute rehab at [facility] [place]. PT and OT will be added. 11/04: [place] information was received yesterday and on review patient had a heart catheterization done at [facility] recently. Heart catheterization planned for yesterday with Dr. Lizama was then deferred. Dr. Ying would like to start the patient on new medication for hyperlipidemia and Aldactone was added. Patient is now planning to go to [facility] which will occur tomorrow. Objective - Vital Signs Vital signs: Vital Signs Temp 97.1 F L 11/04/17 11:50 Pulse 56 L 11/04/17 11:50 Resp 16 11/04/17 11:50 BP 112/64 11/04/17 11:50 Pulse Ox 98 11/04/17 11:50 Intake & Output 11/03/17 11/04/17 11/04/17 18:59 06:59 18:59 Intake Total 816 170 222 Output Total 225 Balance 591 170 222 Weight 66 kg Intake: IV 170 0.9 170 Intake, IV Titration 346 Amount Heparin Sodium,Porcine/ 106 D5w Pmx 25,000 unit In Dextrose/Water 1 500ml. bag @ 12 UNITS/KG/HR 14.4 mls/hr IV .Q24H [facility] Rx#: [id number] Sodium Chloride 0.9% 1, 240 000 ml In Empty Bag 1 bag @ 1 ML/KG/HR 63.7 mls/hr IV .[id number] [facility] Rx#: [id number] Oral 470 222 Output: Urine 225 Other: Voiding Method Toilet Bedside Commode Bedside Commode Diaper # Voids 1 # Bowel Movements 1 - Exam General appearance: cooperative, no acute distress - EENT Eyes: anicteric sclerae, EOMI, PERRLA ENT: NA/AT, normal oropharynx - Neck Neck: no lymphadenopathy, normal ROM, no other, no rigidity, no stridor, no thyromegaly - Respiratory Respiratory: bilateral: CTA, negative: diminished, dullness, rales, rhonchi - Cardiovascular Rhythm: regular Heart sounds: normal: S1, S2 Abnormal Heart Sounds: systolic murmur, no diastolic murmur, no rub, no S3 Gallop, no S4 Gallop, no click, no other - Gastrointestinal General gastrointestinal: normal bowel sounds, soft - Integumentary Integumentary: normal, normal turgor. There is 1+ pedal edema bilaterally. On the right foot tips of all her toes are black. On the left third and fourth toes are black at the distal phalanx. Pulses by Doppler. - Neurologic Neurologic: CNII-XII intact - Musculoskeletal Musculoskeletal: gait normal, strength equal bilaterally - Psychiatric Psychiatric: A&O x's 3, appropriate affect, intact judgment & insight - Labs CBC & Chem 7: 11/04/17 05:40 11/04/17 05:40 Labs: Abnormal Lab Results - Last 24 Hours (Table) 11/03/17 11/03/17 11/03/17 Range/Units 16:25 20:50 23:18 RBC 3.26 L (3.80-5.40) m/uL Hgb 9.4 L (11.4-16.0) gm/dL Hct 29.9 L (34.0-46.0) % MCHC (31.0-37.0) g/dL Sodium (137-145) mmol/L BUN (7-17) mg/dL Glucose (74-99) mg/dL POC Glucose (mg/dL) 103 H 107 H (75-99) mg/dL HDL Cholesterol (40-60) mg/dL 11/04/17 11/04/17 11/04/17 Range/Units 05:40 05:40 05:40 RBC 3.25 L (3.80-5.40) m/uL Hgb 9.1 L (11.4-16.0) gm/dL Hct 30.0 L (34.0-46.0) % MCHC 30.5 L (31.0-37.0) g/dL Sodium 134 L (137-145) mmol/L BUN 20 H (7-17) mg/dL Glucose 140 H (74-99) mg/dL POC Glucose (mg/dL) (75-99) mg/dL HDL Cholesterol 34 L (40-60) mg/dL 11/04/17 11/04/17 Range/Units 05:49 11:05 RBC (3.80-5.40) m/uL Hgb (11.4-16.0) gm/dL Hct (34.0-46.0) % MCHC (31.0-37.0) g/dL Sodium (137-145) mmol/L BUN (7-17) mg/dL Glucose (74-99) mg/dL POC Glucose (mg/dL) 143 H 146 H (75-99) mg/dL HDL Cholesterol (40-60) mg/dL Assessment and Plan Plan: 1. Acute nausea and vomiting most likely secondary to gastroenteritis, possible viral. Continue Levaquin and Flagyl, morphine for pain, Zofran for nausea. Diet full liquid and advance as tolerated. CAT scan of the abdomen and pelvis as above. 2. Chest pain with abnormal EKG and elevated the second troponin, rule out for non-ST elevated myocardial infarction. Heparin drip discontinued. Continue aspirin, Lipitor, Imdur, Pradaxa, Plavix, fenofibrate, Toprol-XL. Echocardiogram as above. Heart catheterization done recently at [facility] 3. Tachycardia. [address] Ying has increased metoprolol succinate to 100 mg daily. 4. Severe peripheral artery disease post extensive surgical treatment by her vascular surgeon at [facility] and subsequently completed 3 weeks of rehab. Patient is noted to have a black toes on her left and black tips of her toes on the right with pulses by Doppler. Consult with Dr. Jimenez appreciated. We have requested records from [facility]. 5. Hypertension, hypertensive cardiovascular disease with elevated blood sugars at home. Continue lisinopril 5 mg daily, Imdur 60 mg daily, Toprol-XL. 6. Chronic CKD stage II, stable. 7. CAD post CABG with ischemic cardiopathy post AICD. Continue treatment as in paragraph #2. 7. Carotid artery disease status post carotid endarterectomies. Continue with aspirin, Plavix, Lipitor for secondary prevention. 8. Ucontrolled diabetes mellitus type 2 with hyperglycemia and PVD complications, neuropathy. Check A1c. Continue Levemir 10 units at bedtime, NovoLog 4 units with meals and scale. At home patient is on trulicity, Lantus 10 units at bedtime and Humalog 4 units with meals and as scheduled. 9. Hyperlipidemia. Continue patient on Lipitor 80 mg orally once every day. 10. History of left subclavian stenosis. Post stenting. Stable at this time. 11. Hypomagnesemia, replacement. 12. History of GERD. Continue patient on Prevacid 30 mg orally once every day. 13. Vitamin D deficiency. Continue patient on vitamin D 1000 units once every day. 14. Recurrent depression. Continue Cymbalta 60 mg orally once every day. 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 18. DVT prophylaxis. 19. GI prophylaxis. Continue PPI. CODE STATUS: full code. [facility] Impression and plan of care have been directed as dictated by the signing physician. Edie Martinez nurse practitioner acting as scribe for signing physician.
--- NOTE | 2017-11-04 12:36 | P.PN ---
Subjective Progress Note Date: 11/04/17 This is a 72-year-old female patient of Dr. Lizama in the office with a previous medical history significant for coronary artery disease status post coronary artery bypass graft with ischemic cardiomyopathy and percutaneous coronary intervention and a total of 4 stents placement last one was put in the LAD back in November 2014, AICD placement, history of left subclavian stenosis status post stenting, carotid artery disease status post bilateral carotid endarterectomies, severe peripheral arterial occlusive disease. She follows with Dr. Amezcua at [facility], vascular surgeon for possible revascularization of the left lower extremity, however patient underwent angiogram was not a candidate for any surgical intervention according to him and she was placed on Pletal. She had a recent hospitalization in September for acute loss of motor functioning bilateral leg accompanied by sudden paresthesias bilaterally lower extremity due to spinal stenosis and acute kidney injury and discharged home. Pataient was recently hospitalized at [facility] for total of 5 weeks and 3 weeks of that being rehab. She had extensive procedures done by her vascular surgeon. Patient underwent exploratory laparotomy, aortogram with runoff via ultrasound-guided access to the left arm approach, endovascular placement of aortic stents for occlusive disease of the aorta. Left iliac stents, fem-fem bypass with right great saphenous vein. During that hospitalization patient also underwent a Lexiscan which revealed a perfusion defect in the apical anterior wall region subsequently patient underwent a cardiac catheterization which revealed stable ischemic heart disease with a patent HA, saphenous vein graft to the RCA. 100% occluded circumflex with collaterals. Abnormal systolic/diastolic function, PAD. Medical therapy advised at that time. She also underwent an echocardiogram with Doppler study during that admission to [place] which revealed an ejection fraction of 43%. Patient presented to the hospital with symptoms of nausea and vomiting, subsequent to her admission here she developed chest discomfort . Most of the data from [facility] was just received today, patient was actually scheduled to undergo cardiac catheterization today by Dr. Brady, once the information from [place] was reviewed, the cardiac catheterization was deferred. She is denying any chest discomfort today, just complains of feeling tired. Echocardiogram with Doppler study which was performed here revealed an ejection fraction of 20-25% with severe global hypokinesia, moderate mitral regurg and moderate pulmonary hypertension. 11/04/2017 Patient was seen and examined this morning, overall feeling stronger today. Denies any chest discomfort, breathing overall is stable. Let pressure 112/60 with a heart rate in the 60s, 98% on room air. White blood cell count 4.8, hemoglobin 9.1, platelet count 209. Sodium 134, potassium 4.0, BUN 20, creatinine 0.8. Objective - Vital Signs Vital signs: Vital Signs Temp 97.1 F L 11/04/17 11:50 Pulse 56 L 11/04/17 11:50 Resp 16 11/04/17 11:50 BP 112/64 11/04/17 11:50 Pulse Ox 98 11/04/17 11:50 Intake & Output 11/03/17 11/04/17 11/04/17 18:59 06:59 18:59 Intake Total 816 170 222 Output Total 225 Balance 591 170 222 Weight 66 kg Intake: IV 170 0.9 170 Intake, IV Titration 346 Amount Heparin Sodium,Porcine/ 106 D5w Pmx 25,000 unit In Dextrose/Water 1 500ml. bag @ 12 UNITS/KG/HR 14.4 mls/hr IV .Q24H [facility] Rx#: [id number] Sodium Chloride 0.9% 1, 240 000 ml In Empty Bag 1 bag @ 1 ML/KG/HR 63.7 mls/hr IV .[id number] ONE Rx#: [id number] Oral 470 222 Output: Urine 225 Other: Voiding Method Toilet Bedside Commode Bedside Commode Diaper # Voids 1 # Bowel Movements 1 - Exam PHYSICAL EXAMINATION: GENERAL: HEENT: Head is atraumatic, normocephalic. Pupils equal, round. Sclera anicteric. Conjunctiva are clear. Mucous membranes of the mouth are moist. Neck is supple. There is no elevated jugular venous pressure.] bruit is heard. HEART EXAMINATION: Heart S1 and S2 1 systolic murmur is heard. CHEST EXAMINATION: Lungs are clear to auscultation and precussion. No chest wall tenderness is noted on palpation or with deep breathing. ABDOMEN: Soft, nontender. Bowel sounds are heard. No organomegaly noted. EXTREMITIES: 1+ bilateral peripheral edema. On the right foot, tips of the toes are black, on the left third and fourth toes a blackened discoloration is also noted. Patient has an incision at the right inner thigh, dry and intact, and place.. NEUROLOGIC patient is awake, alert and oriented -3. . - Labs CBC & Chem 7: 11/04/17 05:40 11/04/17 05:40 Labs: Abnormal Lab Results - Last 24 Hours (Table) 11/03/17 11/03/17 11/03/17 Range/Units 16:25 20:50 23:18 RBC 3.26 L (3.80-5.40) m/uL Hgb 9.4 L (11.4-16.0) gm/dL Hct 29.9 L (34.0-46.0) % MCHC (31.0-37.0) g/dL Sodium (137-145) mmol/L BUN (7-17) mg/dL Glucose (74-99) mg/dL POC Glucose (mg/dL) 103 H 107 H (75-99) mg/dL HDL Cholesterol (40-60) mg/dL 11/04/17 11/04/17 11/04/17 Range/Units 05:40 05:40 05:40 RBC 3.25 L (3.80-5.40) m/uL Hgb 9.1 L (11.4-16.0) gm/dL Hct 30.0 L (34.0-46.0) % MCHC 30.5 L (31.0-37.0) g/dL Sodium 134 L (137-145) mmol/L BUN 20 H (7-17) mg/dL Glucose 140 H (74-99) mg/dL POC Glucose (mg/dL) (75-99) mg/dL HDL Cholesterol 34 L (40-60) mg/dL 11/04/17 11/04/17 Range/Units 05:49 11:05 RBC (3.80-5.40) m/uL Hgb (11.4-16.0) gm/dL Hct (34.0-46.0) % MCHC (31.0-37.0) g/dL Sodium (137-145) mmol/L BUN (7-17) mg/dL Glucose (74-99) mg/dL POC Glucose (mg/dL) 143 H 146 H (75-99) mg/dL HDL Cholesterol (40-60) mg/dL Assessment and Plan Plan: Assessment and plan #1 acute nausea and vomiting, likely secondary to gastroenteritis, possibly viral #2 chest pain with abnormal EKG and mildly abnormal troponin. Patient recently underwent a cardiac catheterization earlier this month medical therapy advised. #3 severe peripheral arterial disease, status post recent endovascular placement of aortic stent for occlusive disease of the aorta, left iliac stent, and fem-fem bypass with great saphenous vein at [facility]. #4 Severe peripheral vascular disease #5 Hypertension #6 Chronic kidney disease stage II stable #7 Hypertension #8 CAD with prior bypass surgery and stent placements #9 Ischemic cardiomyopathy with prior AICD #10 Diabetes, uncontrolled #11 Hyperlipidemia #12 History of left subclavian stenosis status post stenting #13 Post polio #14 GERD #15 anemia Plan From cardiology's perspective, we'll maximize medical therapy. We will check a fasting lipid profile, if LDL remains above 50 we will consider initiating a PCSK9 inhibitor. DNP note has been reviewed, I agree with a documented findings and plan of care. Patient was seen and examined.
[2017-11-04 16:17] LABS: Glucose,Whole Blood 112 mg/dL (75-99)
[2017-11-04] MEDS: LEVOFLOXACIN 500MG-D5W PMX 500 MG in DEXTROSE/WATER 1 100ML.BAG IVPB SCH (16:29)
[2017-11-04 17:32] LABS: Hemoglobin A1C 5.3 % (4.0-6.0)
[2017-11-04] MEDS: ATORVASTATIN 80 MG TAB PO SCH (20:14)
[2017-11-04 21:08] LABS: Glucose,Whole Blood 133 mg/dL (75-99)
[2017-11-04] MEDS: INSULIN DETEMIR 100 UNIT/ML 10 ML VIAL SQ SCH (21:25)
[2017-11-05 06:22] LABS: Glucose,Whole Blood 118 mg/dL (75-99)
[2017-11-05 06:26] LABS: Basophils % (A) 0 %; Eosinophils # (A) 0.2 k/uL (0-0.7); Eosinophils % (A) 3 %; HCT 30.9 % (34.0-46.0); HGB 9.3 gm/dL (11.4-16.0); Hypochromasia Marked; Lymphocytes % (A) 22 %; MCH 27.4 pg (25.0-35.0); MCV 91.3 fL (80.0-100.0); Mean Platelet Volume 8.3; Monocytes # (A) 0.3 k/uL (0-1.0); Monocytes % (A) 8 %; Neutrophils % (A) 65 %; Platelet Count 195 k/uL (150-450); RBC 3.38 m/uL (3.80-5.40); RDW 15.4 % (11.5-15.5); WBC 4.6 k/uL (3.8-10.6)
[2017-11-05] MEDS: INSULIN ASPART 100 UNIT/ML 1 ML 10 ML VIAL SQ SCH ×7 (06:35→22:03)
[2017-11-05] MEDS ORDERED: ACETAMINOPHEN TAB 325 MG TAB PO PRN (06:35)
[2017-11-05 07:22] LABS: Calcium 8.8 mg/dL (8.4-10.2); Magnesium 1.6 mg/dL (1.6-2.3); Potassium 4.7 mmol/L (3.5-5.1)
[2017-11-05] MEDS: DULoxetine HCL 60 MG CAPSULE.DR PO SCH (08:39)
[2017-11-05] MEDS: ISOSORBIDE MONONITRATE ER 60 MG TAB.ER.24H PO SCH (08:39)
[2017-11-05] MEDS: CALCIUM CARBONATE 500 MG CHEWABLE PO SCH ×2 (08:39→22:03)
[2017-11-05] MEDS: APIXABAN 5 MG TAB PO SCH ×2 (08:39→22:02)
[2017-11-05] MEDS: LACTOBACILLUS ACIDOPH & BULGAR 1 EACH PACKET PO SCH (08:39)
[2017-11-05] MEDS: PANTOPRAZOLE 40 MG TABLET PO SCH (08:39)
[2017-11-05] MEDS: CLOPIDOGREL 75 MG TAB PO SCH (08:40)
[2017-11-05] MEDS: CHOLECALCIFEROL 1,000 UNIT TAB PO SCH (08:40)
[2017-11-05] MEDS: metroNIDAZOLE 500 MG TAB PO SCH ×3 (08:40→23:45)
[2017-11-05] MEDS: FENOFIBRATE 160 MG TAB PO SCH (08:40)
[2017-11-05] MEDS: KETOROLAC 0.5% OPHTH DROPS 5 ML BTL LEFT EYE SCH ×2 (08:41→22:04)
[2017-11-05] MEDS: Lifitegrast [Xiidra] 1 DROP BOTH EYES SCH ×2 (08:41→23:44)
[2017-11-05] MEDS: ASPIRIN 81 MG PO SCH ×2 (08:42→08:43)
[2017-11-05] MEDS: METOPROLOL SUCCINATE (ER) 100 MG TAB.ER.24H PO SCH (08:43)
[2017-11-05] MEDS: GABAPENTIN 100 MG CAP PO SCH ×3 (08:43→17:31)
[2017-11-05] MEDS: HYDROcodone/APAP 10-325MG 1 EACH TAB PO PRN ×2 (08:59→13:35)
[2017-11-05] MEDS ORDERED: Dulaglutide [Trulicity] 0.75 MG SQ SCH (09:00)
[2017-11-05] MEDS: LISINOPRIL 5 MG TAB PO SCH (11:03)
[2017-11-05] MEDS: SPIRONOLACTONE 25 MG TAB PO SCH (11:03)
--- NOTE | 2017-11-05 11:08 | P.DS ---
Providers Date of admission: 11/01/17 00:33 Expected date of discharge: 11/05/17 Attending physician: Vladimir Azul Consults: 11/01/17 08:32 Consult Physician Stat Consulting Provider: Mc Ying Consult Reason/Comments: chest pain, elevated troponin on admission Do you want consulting provider notified?: Yes 11/01/17 09:03 Consult Physician Routine Consulting Provider: Darius Jimenez Consult Reason/Comments: eval bilat feet, sees Dr. Amezcua Do you want consulting provider notified?: Yes [facility] Course: This is a 72-year-old female patient of Dr. Azul with a previous medical history significant for coronary artery disease status post coronary artery bypass graft with ischemic cardiomyopathy and percutaneous coronary intervention and a total of 4 stents placement last one was put in the LAD back in November 2014, AICD placement, history of left subclavian stenosis status post stenting, carotid artery disease status post bilateral carotid endarterectomies , severe peripheral arterial occlusive disease. She follows with Dr. Amezcua at [facility], vascular surgeon for possible revascularization of the left lower extremity, however patient underwent angiogram was not a candidate for any surgical intervention according to him and she was placed on Pletal. She had a recent hospitalization in September for acute loss of motor functioning bilateral leg accompanied by sudden paresthesias bilaterally lower extremity due to spinal stenosis and acute kidney injury and discharged home. Pataient was recently hospitalized at [facility] for total of 5 weeks and 3 weeks of that being rehab. She had extensive procedures done by her vascular surgeon. She apparently was discharged from rehab yesterday. Last night Dr. Polanco received a call from her regarding her blood pressure being high. She also had nausea and vomiting. Patient is also complaining of abdominal pain. She denies any blood in her stools. Her stools have been dark but not black. She came into [facility] emergency center for evaluation. White count was 8.4, troponins were 0.060 and 0.308. Patient did develop chest pain after she was here and she received M morphine 4 mg which has resolved the pain. She stated the pain was in the midsternal area. Chest x -ray showed no acute findings as well as abdominal series. Patient was admitted to the selective care unit and has been seen by Dr. Ying and patient was started on heparin drip. Consult was also admitted for Dr. Jimenez. Patient is noted to have black toes on the left third and fourth digits and blackness at the tips of toes on the right. Patient is to return to Dr. Amezcua in 2 weeks for removal of stitches. 11/02: : Nonspecific gastric distention. Incidental mild interstitial phase pulmonary edema with bilateral small pleural effusions greater on the right. Patient is followed by cardiology. Dr. Jimenez has seen the patient and from a vascular point of view, is stable for discharge and follow-up with her vascular surgeon in [facility]. Third troponin was 0.445. She is tentatively scheduled for heart catheterization tomorrow. She denies having any chest pain. Capillary blood glucose has been running anywhere from 99-313. Diet will be advanced to full liquid for today. 11/03: Echocardiogram reveals EF of 20-25% with severe global hypokinesia of the LV, LA moderately dilated at 34-39, mild aortic valve sclerosis, moderate mitral regurgitation, mild tricuspid regurgitation, moderate pulmonary hypertension. Yesterday, patient had episode of nausea and retching with chest pain. She received nitroglycerin 2. Cardiology was contacted and Nitropaste was placed and additional dose of metoprolol succinate with increased to 100 mg daily. Heart rate is running now in the 90s. Pulse ox is 97 on room air. Patient are interested in subacute rehab at [facility] [place]. PT and OT will be added. 11/04: [place] information was received yesterday and on review patient had a heart catheterization done at [facility] recently. Heart catheterization planned for yesterday with Dr. Lizama was then deferred. Dr. Ying would like to start the patient on new medication for hyperlipidemia and Aldactone was added. [facility] [place] [facility] will occur [facility]. 11/05: His blood pressure has been running on the low side. She has been increased and metipranolol Gil 8-100 mg daily and also Aldactone was added during this hospitalization. Med a drain will be added 5 mg 3 times daily if needed for systolic blood pressure less than 100. Patient will be discharged to [facility] today in stable condition. Discharge diagnoses: 1. Acute nausea and vomiting most likely secondary to gastroenteritis, possible viral. 2. Chest pain with abnormal EKG and elevated the second troponin, rule out for non-ST elevated myocardial infarction. 3. Tachycardia. 4. Severe peripheral artery disease post extensive surgical treatment by her vascular surgeon at [facility] and subsequently completed 3 weeks of rehab. Patient is noted to have a black toes on her left and black tips of her toes on the right with pulses by Doppler. 5. Hypertension, hypertensive cardiovascular disease with elevated blood pressures at home. 6. Chronic CKD stage II, stable. 7. CAD post CABG with ischemic cardiopathy post AICD. 7. Carotid artery disease status post carotid endarterectomies. 8. Ucontrolled diabetes mellitus type 2 with hyperglycemia and PVD complications, neuropathy. 9. Hyperlipidemia. 10. History of left subclavian stenosis. Post stenting. 11. Hypomagnesemia, replacement. 12. History of GERD. 13. Vitamin D deficiency. 14. Recurrent depression. 14. Post polio. Stable Discharge plan: [facility] under the care of Dr. Azul. Impression and plan of care have been directed as dictated by the signing physician. Edie Martinez nurse practitioner acting as scribe for signing physician. Patient Condition at Discharge: Good Plan - Discharge Summary Discharge Rx Participant: No New Discharge Prescriptions: New Metoprolol Succinate (ER) [Toprol XL] 100 mg PO DAILY@0900 tab.er.24h metroNIDAZOLE [Flagyl] 500 mg PO TID #15 tab Spironolactone [Aldactone] 25 mg PO DAILY@1200 tab Midodrine [ProAmatine] 5 mg PO TID #30 tablet Continue Clopidogrel [Plavix] 75 mg PO DAILY@0900 Lansoprazole [Prevacid] 30 mg PO DAILY@0900 DULoxetine HCL [Cymbalta] 60 mg PO DAILY@0900 Cholecalciferol [Vitamin D3] 2,000 unit PO DAILY@0900 Multivitamins, Thera [Multivitamin (formulary)] 1 tab PO DAILY@0900 Ubidecarenone [Co Q-10] 400 mg PO DAILY@0900 Nitroglycerin Sl Tabs [Nitrostat] 0.4 mg SUBLINGUAL Q5M PRN PRN Reason: Chest Pain Bifidobacterium Infantis [Align] 4 mg PO DAILY@0900 Isosorbide Mononitrate ER [Imdur] 60 mg PO DAILY@09 Lifitegrast [Xiidra] 1 drop BOTH EYES BID Dulaglutide [Trulicity] 0.75 mg SQ WE Lisinopril [Zestril] 5 mg PO DAILY@0900 Ketorolac 0.5% Ophth Soln [Acular 0.5%] 1 drops LEFT EYE BID INSULIN LISPRO (humaLOG) [humaLOG] 4 units SQ AC-TID@,, Insulin Glargine [Lantus] 10 units SQ HS@2100 INSULIN LISPRO (humaLOG) [humaLOG] See Protocol SQ ACHS Gabapentin [Neurontin] 100 mg PO TID@0900,1200,1700 Fenofibrate [Lofibra] 160 mg PO DAILY@09 Calcium Carbonate 648mg 648 mg PO BID@ Atorvastatin [Lipitor] 80 mg PO HS@2100 Aspirin 81 mg PO DAILY@09 Apixaban [Eliquis] 5 mg PO BID@09,2099 traMADol HCL [Ultram] 50 mg PO Q4HR PRN #30 tablet PRN Reason: Pain Discontinued Metoprolol Succinate (ER) [Toprol Xl] 75 mg PO DAILY@09 HYDROcodone/APAP 10-325MG [[place] 10-325] 1 tab PO Q4HR PRN PRN Reason: Moderate To Severe Pain Discharge Medication List Clopidogrel [Plavix] 75 mg PO DAILY@89911/22/14 [History] Cholecalciferol [Vitamin D3] 2,000 unit PO DAILY@89902/02/17 [History] DULoxetine HCL [Cymbalta] 60 mg PO DAILY@89902/02/17 [History] Lansoprazole [Prevacid] 30 mg PO DAILY@89902/02/17 [History] Multivitamins, Thera [Multivitamin (formulary)] 1 tab PO DAILY@89906/16/17 [ History] Ubidecarenone [Co Q-10] 400 mg PO DAILY@89906/16/17 [History] Bifidobacterium Infantis [Align] 4 mg PO DAILY@89909/18/17 [History] Isosorbide Mononitrate ER [Imdur] 60 mg PO DAILY@89909/18/17 [History] Nitroglycerin Sl Tabs [Nitrostat] 0.4 mg SUBLINGUAL Q5M PRN 09/18/17 [History] Apixaban [Eliquis] 5 mg PO BID@0900,209910/31/17 [History] Aspirin 81 mg PO DAILY@0910/31/17 [History] Atorvastatin [Lipitor] 80 mg PO HS@209910/31/17 [History] Calcium Carbonate 648mg 648 mg PO BID@,10/31/17 [History] Dulaglutide [Trulicity] 0.75 mg SQ WE 10/31/17 [History] Fenofibrate [Lofibra] 160 mg PO DAILY@89910/31/17 [History] Gabapentin [Neurontin] 100 mg PO TID@0900,1200,1700 10/31/17 [History] INSULIN LISPRO (humaLOG) [humaLOG] 4 units SQ AC-TID@09,12,17 10/31/17 [History] INSULIN LISPRO (humaLOG) [humaLOG] See Protocol SQ ACHS 10/31/17 [History] Insulin Glargine [Lantus] 10 units SQ HS@209910/31/17 [History] Ketorolac 0.5% Ophth Soln [Acular 0.5%] 1 drops LEFT EYE BID 10/31/17 [History] Lifitegrast [Xiidra] 1 drop BOTH EYES BID 10/31/17 [History] Lisinopril [Zestril] 5 mg PO DAILY@0900 10/31/17 [History] Metoprolol Succinate (ER) [Toprol XL] 100 mg PO DAILY@0900 tab.er.24h 11/05/17 [Rx] Midodrine [ProAmatine] 5 mg PO TID #30 tablet 11/05/17 [Rx] Spironolactone [Aldactone] 25 mg PO DAILY@1200 tab 11/05/17 [Rx] metroNIDAZOLE [Flagyl] 500 mg PO TID #15 tab 11/05/17 [Rx] traMADol HCL [Ultram] 50 mg PO Q4HR PRN #30 tablet 11/05/17 [Rx] Follow up Appointment(s)/Referral(s): Vladimir Azul MD [Primary Care Provider] - 11/10/17 2:00 pm (With Rosetta Azul rounding in hospital this week.) Jean Pierre Lizama MD [STAFF PHYSICIAN] - 1 Week Patient Instructions/Handouts: Acute Coronary Syndrome (DC) Activity/Diet/Wound Care/Special Instructions: Follow up with Dr. Amezcua as scheduled. Discharge Disposition: TRANSFER TO SNF/ECF
[2017-11-05 11:19] LABS: Glucose,Whole Blood 149 mg/dL (75-99)
[2017-11-05] MEDS: EZETIMIBE 10 MG TAB PO SCH (12:36)
--- NOTE | 2017-11-05 12:48 | P.PN ---
Subjective Progress Note Date: 11/05/17 This is a 72-year-old female patient of Dr. Lizama in the office with a previous medical history significant for coronary artery disease status post coronary artery bypass graft with ischemic cardiomyopathy and percutaneous coronary intervention and a total of 4 stents placement last one was put in the LAD back in November 2014, AICD placement, history of left subclavian stenosis status post stenting, carotid artery disease status post bilateral carotid endarterectomies, severe peripheral arterial occlusive disease. She follows with Dr. Amezcua at [facility], vascular surgeon for possible revascularization of the left lower extremity, however patient underwent angiogram was not a candidate for any surgical intervention according to him and she was placed on Pletal. She had a recent hospitalization in September for acute loss of motor functioning bilateral leg accompanied by sudden paresthesias bilaterally lower extremity due to spinal stenosis and acute kidney injury and discharged home. Pataient was recently hospitalized at [facility] for total of 5 weeks and 3 weeks of that being rehab. She had extensive procedures done by her vascular surgeon. Patient underwent exploratory laparotomy, aortogram with runoff via ultrasound-guided access to the left arm approach, endovascular placement of aortic stents for occlusive disease of the aorta. Left iliac stents, fem-fem bypass with right great saphenous vein. During that hospitalization patient also underwent a Lexiscan which revealed a perfusion defect in the apical anterior wall region subsequently patient underwent a cardiac catheterization which revealed stable ischemic heart disease with a patent HA, saphenous vein graft to the RCA. 100% occluded circumflex with collaterals. Abnormal systolic/diastolic function, PAD. Medical therapy advised at that time. She also underwent an echocardiogram with Doppler study during that admission to [place] which revealed an ejection fraction of 43%. Patient presented to the hospital with symptoms of nausea and vomiting, subsequent to her admission here she developed chest discomfort . Most of the data from [facility] was just received today, patient was actually scheduled to undergo cardiac catheterization today by Dr. Brady, once the information from [place] was reviewed, the cardiac catheterization was deferred. She is denying any chest discomfort today, just complains of feeling tired. Echocardiogram with Doppler study which was performed here revealed an ejection fraction of 20-25% with severe global hypokinesia, moderate mitral regurg and moderate pulmonary hypertension. 11/04/2017 Patient was seen and examined this morning, overall feeling stronger today. Denies any chest discomfort, breathing overall is stable. Let pressure 112/60 with a heart rate in the 60s, 98% on room air. White blood cell count 4.8, hemoglobin 9.1, platelet count 209. Sodium 134, potassium 4.0, BUN 20, creatinine 0.8. 11/05/2017 Patient was seen and examined this morning, she is feeling better overall. Slept well through the night last night. Blood pressure this morning 108/60 with a heart rate in the 70s, white blood cell count 4.6, hemoglobin 9.3, platelet count 195. Sodium 138, potassium 4.7, BUN 16, creatinine 0.8. Magnesium 1.6. Objective - Vital Signs Vital signs: Vital Signs Temp 97.3 F L 11/05/17 11:22 Pulse 73 11/05/17 11:24 Resp 18 11/05/17 11:22 BP 107/58 11/05/17 11:22 Pulse Ox 94 L 11/05/17 04:00 Intake & Output 11/04/17 11/05/17 11/05/17 18:59 06:59 18:59 Intake Total 784 20 Output Total 525 50 Balance 259 -30 Weight 65 kg Intake: IV 20 0.9 20 Intake, IV Titration 100 Amount Levofloxacin 500Mg-D5w 100 Pmx 500 mg In Dextrose/ Water 1 100ml.bag @ 100 mls/hr IVPB Q24H [facility] Rx#: [id number] Oral 684 Output: Urine 525 50 Other: Voiding Method Bedside Commode Bedside Commode Bedside Commode # Voids 1 - Exam PHYSICAL EXAMINATION: GENERAL: 72-year-old female in no apparent distress at the time of my examination HEENT: Head is atraumatic, normocephalic. Pupils equal, round. Sclera anicteric. Conjunctiva are clear. Mucous membranes of the mouth are moist. Neck is supple. There is no elevated jugular venous pressure.] bruit is heard. HEART EXAMINATION: Heart S1 and S2 1 systolic murmur is heard. CHEST EXAMINATION: Lungs are clear to auscultation and precussion. No chest wall tenderness is noted on palpation or with deep breathing. ABDOMEN: Soft, nontender. Bowel sounds are heard. No organomegaly noted. EXTREMITIES: 1+ bilateral peripheral edema. On the right foot, tips of the toes are black, on the left third and fourth toes a blackened discoloration is also noted. Patient has an incision at the right inner thigh, dry and intact, and place.. NEUROLOGIC patient is awake, alert and oriented -3. . - Labs CBC & Chem 7: 11/05/17 06:08 11/05/17 06:08 Labs: Abnormal Lab Results - Last 24 Hours (Table) 11/04/17 11/04/17 11/05/17 Range/Units 16:15 21:06 06:08 RBC 3.38 L (3.80-5.40) m/uL Hgb 9.3 L (11.4-16.0) gm/dL Hct 30.9 L (34.0-46.0) % MCHC 30.0 L (31.0-37.0) g/dL Glucose (74-99) mg/dL POC Glucose (mg/dL) 112 H 133 H (75-99) mg/dL 11/05/17 11/05/17 11/05/17 Range/Units 06:08 06:21 11:17 RBC (3.80-5.40) m/uL Hgb (11.4-16.0) gm/dL Hct (34.0-46.0) % MCHC (31.0-37.0) g/dL Glucose 110 H (74-99) mg/dL POC Glucose (mg/dL) 118 H 149 H (75-99) mg/dL Assessment and Plan Plan: Assessment and plan #1 acute nausea and vomiting, likely secondary to gastroenteritis, possibly viral #2 chest pain with abnormal EKG and mildly abnormal troponin. Patient recently underwent a cardiac catheterization earlier this month medical therapy advised. #3 severe peripheral arterial disease, status post recent endovascular placement of aortic stent for occlusive disease of the aorta, left iliac stent, and fem-fem bypass with great saphenous vein at [facility]. #4 Severe peripheral vascular disease #5 Hypertension #6 Chronic kidney disease stage II stable #7 Hypertension #8 CAD with prior bypass surgery and stent placements #9 Ischemic cardiomyopathy with prior AICD #10 Diabetes, uncontrolled #11 Hyperlipidemia #12 History of left subclavian stenosis status post stenting #13 Post polio #14 GERD #15 anemia Plan From cardiology's perspective, we'll continue current medications. She may be able to be discharged home once cleared by primary, we will make her a follow- up appointment to see Dr. Brady in the office post discharge. DNP note has been reviewed, I agree with a documented findings and plan of care. Patient was seen and examined.
[2017-11-05] MEDS ORDERED: MIDODRINE 5 MG TAB PO PRN (16:08)
[2017-11-05 16:40] LABS: Glucose,Whole Blood 109 mg/dL (75-99)
[2017-11-05] MEDS: LEVOFLOXACIN 500MG-D5W PMX 500 MG in DEXTROSE/WATER 1 100ML.BAG IVPB SCH (17:31)
[2017-11-05] MEDS: traMADol 50 MG TAB PO PRN ×2 (18:49→23:51)
[2017-11-05 20:59] LABS: Glucose,Whole Blood 113 mg/dL (75-99)
[2017-11-05] MEDS: ATORVASTATIN 80 MG TAB PO SCH (22:07)
[2017-11-05] MEDS: INSULIN DETEMIR 100 UNIT/ML 10 ML VIAL SQ SCH (22:07)
[2017-11-06 05:39] VITALS: RESP 18
[2017-11-06 06:03] LABS: Basophils % (A) 0 %; Eosinophils # (A) 0.2 k/uL (0-0.7); Eosinophils % (A) 5 %; HCT 32.4 % (34.0-46.0); HGB 9.9 gm/dL (11.4-16.0); Hypochromasia Marked; Lymphocytes % (A) 22 %; MCH 28.3 pg (25.0-35.0); MCHC 30.6 g/dL (31.0-37.0); MCV 92.5 fL (80.0-100.0); Mean Platelet Volume 8.2; Monocytes # (A) 0.4 k/uL (0-1.0); Monocytes % (A) 9 %; Neutrophils # (A) 2.9 k/uL (1.3-7.7); Neutrophils % (A) 63 %; Platelet Count 198 k/uL (150-450); RBC 3.51 m/uL (3.80-5.40); RDW 15.3 % (11.5-15.5); WBC 4.6 k/uL (3.8-10.6)
[2017-11-06 06:38] LABS: Glucose,Whole Blood 143 mg/dL (75-99)
[2017-11-06] MEDS: INSULIN ASPART 100 UNIT/ML 1 ML 10 ML VIAL SQ SCH ×4 (06:43→12:23)
[2017-11-06] MEDS: LACTOBACILLUS ACIDOPH & BULGAR 1 EACH PACKET PO SCH (08:23)
[2017-11-06] MEDS: ASPIRIN 81 MG PO SCH (08:28)
[2017-11-06] MEDS: CALCIUM CARBONATE 500 MG CHEWABLE PO SCH (08:28)
[2017-11-06] MEDS: DULoxetine HCL 60 MG CAPSULE.DR PO SCH (08:28)
[2017-11-06] MEDS: FENOFIBRATE 160 MG TAB PO SCH (08:28)
[2017-11-06] MEDS: CLOPIDOGREL 75 MG TAB PO SCH (08:28)
[2017-11-06] MEDS: GABAPENTIN 100 MG CAP PO SCH ×2 (08:28→12:22)
[2017-11-06] MEDS: CHOLECALCIFEROL 1,000 UNIT TAB PO SCH (08:28)
[2017-11-06] MEDS: EZETIMIBE 10 MG TAB PO SCH (08:28)
[2017-11-06] MEDS: APIXABAN 5 MG TAB PO SCH (08:28)
[2017-11-06] MEDS: metroNIDAZOLE 500 MG TAB PO SCH (08:28)
[2017-11-06] MEDS: METOPROLOL SUCCINATE (ER) 100 MG TAB.ER.24H PO SCH (08:29)
[2017-11-06] MEDS: traMADol 50 MG TAB PO PRN ×2 (08:29→12:29)
[2017-11-06] MEDS: PANTOPRAZOLE 40 MG TABLET PO SCH (08:29)
[2017-11-06] MEDS: ISOSORBIDE MONONITRATE ER 60 MG TAB.ER.24H PO SCH (08:29)
[2017-11-06] MEDS: KETOROLAC 0.5% OPHTH DROPS 5 ML BTL LEFT EYE SCH (08:29)
[2017-11-06] MEDS: Lifitegrast [Xiidra] 1 DROP BOTH EYES SCH (08:35)
--- NOTE | 2017-11-06 11:28 | P.PN ---
Subjective This is a 72-year-old female patient of Dr. Azul with a previous medical history significant for coronary artery disease status post coronary artery bypass graft with ischemic cardiomyopathy and percutaneous coronary intervention and a total of 4 stents placement last one was put in the LAD back in November 2014, AICD placement, history of left subclavian stenosis status post stenting, carotid artery disease status post bilateral carotid endarterectomies , severe peripheral arterial occlusive disease. She follows with Dr. Amezcua at [facility], vascular surgeon for possible revascularization of the left lower extremity, however patient underwent angiogram was not a candidate for any surgical intervention according to him and she was placed on Pletal. She had a recent hospitalization in September for acute loss of motor functioning bilateral leg accompanied by sudden paresthesias bilaterally lower extremity due to spinal stenosis and acute kidney injury and discharged home. Regina was recently hospitalized at [facility] for total of 5 weeks and 3 weeks of that being rehab. She had extensive procedures done by her vascular surgeon. She apparently was discharged from rehab yesterday. Last night Dr. Polanco received a call from her regarding her blood pressure being high. She also had nausea and vomiting. Patient is also complaining of abdominal pain. She denies any blood in her stools. Her stools have been dark but not black. She came into emergency center for evaluation. White count was 8.4, troponins were 0.060 and 0.308. Patient did develop chest pain after she was here and she received M morphine 4 mg which has resolved the pain. She stated the pain was in the midsternal area. Chest x -ray showed no acute findings as well as abdominal series. Patient was admitted to the selective care unit and has been seen by Dr. Ying and patient was started on heparin drip. Consult was also admitted for Dr. Jimenez. Patient is noted to have black toes on the left third and fourth digits and blackness at the tips of toes on the right. Patient is to return to Dr. Amezcua in 2 weeks for removal of stitches. 11/02: : Nonspecific gastric distention. Incidental mild interstitial phase pulmonary edema with bilateral small pleural effusions greater on the right. Patient is followed by cardiology. Dr. Jimenez has seen the patient and from a vascular point of view, is stable for discharge and follow-up with her vascular surgeon in [facility]. Third troponin was 0.445. She is tentatively scheduled for heart catheterization tomorrow. She denies having any chest pain. Capillary blood glucose has been running anywhere from 99-313. Diet will be advanced to full liquid for today. 11/03: Echocardiogram reveals EF of 20-25% with severe global hypokinesia of the LV, LA moderately dilated at 34-39, mild aortic valve sclerosis, moderate mitral regurgitation, mild tricuspid regurgitation, moderate pulmonary hypertension. Yesterday, patient had episode of nausea and retching with chest pain. She received nitroglycerin 2. Cardiology was contacted and Nitropaste was placed and additional dose of metoprolol succinate with increased to 100 mg daily. Heart rate is running now in the 90s. Pulse ox is 97 on room air. Patient are interested in subacute rehab at [facility]. PT and OT will be added. 11/04: [place] information was received yesterday and on review patient had a heart catheterization done at [facility] recently. Heart catheterization planned for yesterday with Dr. Lizama was then deferred. Dr. Ying would like to start the patient on new medication for hyperlipidemia and Aldactone was added. Patient is now planning to go to [facility] [place] which will occur tomorrow. 11/05: His blood pressure has been running on the low side. She has been increased and metipranolol Gil 8-100 mg daily and also Aldactone was added during this hospitalization. Med a drain will be added 5 mg 3 times daily if needed for systolic blood pressure less than 100. Patient will be discharged to ECF today in stable condition. 11/06: Table pressures improved, 105/67, heart rate of 79. She reports she is feeling well. She'll be discharged to ECF today. Agree with discharge planning already in place. Objective - Vital Signs Vital signs: Vital Signs Temp 98.3 F 11/06/17 08:00 Pulse 99 11/06/17 08:00 Resp 18 11/06/17 08:00 BP 115/57 11/06/17 08:00 Pulse Ox 100 11/06/17 08:00 Intake & Output 11/05/17 11/06/17 11/06/17 18:59 06:59 18:59 Intake Total 480 140 190 Output Total 900 Balance -420 140 190 Weight 62.9 kg Intake: IV 40 10 0.9 40 10 Intake, IV Titration 100 Amount Levofloxacin 500Mg-D5w 100 Pmx 500 mg In Dextrose/ Water 1 100ml.bag @ 100 mls/hr IVPB Q24H COUNT INCLUDES THE [facility] Rx#: [id number] Oral 480 180 Output: Urine 900 Other: Voiding Method Bedside Commode Bedside Commode Bedside Commode - Exam - Exam General appearance: cooperative, no acute distress - EENT Eyes: anicteric sclerae, EOMI, PERRLA ENT: NA/AT, normal oropharynx - Neck Neck: no lymphadenopathy, normal ROM, no other, no rigidity, no stridor, no thyromegaly - Respiratory Respiratory: bilateral: CTA, negative: diminished, dullness, rales, rhonchi - Cardiovascular Rhythm: regular Heart sounds: normal: S1, S2 Abnormal Heart Sounds: systolic murmur, no diastolic murmur, no rub, no S3 Gallop, no S4 Gallop, no click, no other - Gastrointestinal General gastrointestinal: normal bowel sounds, soft - Integumentary Integumentary: normal, normal turgor. There is 1+ pedal edema bilaterally. On the right foot tips of all her toes are black. On the left third and fourth toes are black at the distal phalanx. Pulses by Doppler. - Neurologic Neurologic: CNII-XII intact - Musculoskeletal Musculoskeletal: gait normal, strength equal bilaterally - Psychiatric Psychiatric: A&O x's 3, appropriate affect, intact judgment & insight - Labs CBC & Chem 7: 11/06/17 05:35 11/05/17 06:08 Labs: Abnormal Lab Results - Last 24 Hours (Table) 11/05/17 11/05/17 11/06/17 Range/Units 16:38 20:52 05:35 RBC 3.51 L (3.80-5.40) m/uL Hgb 9.9 L (11.4-16.0) gm/dL Hct 32.4 L (34.0-46.0) % MCHC 30.6 L (31.0-37.0) g/dL POC Glucose (mg/dL) 109 H 113 H (75-99) mg/dL 11/06/17 Range/Units 06:34 RBC (3.80-5.40) m/uL Hgb (11.4-16.0) gm/dL Hct (34.0-46.0) % MCHC (31.0-37.0) g/dL POC Glucose (mg/dL) 143 H (75-99) mg/dL Assessment and Plan Plan: 1. Acute nausea and vomiting most likely secondary to gastroenteritis, possible viral. 2. Chest pain with abnormal EKG and elevated the second troponin, rule out for non-ST elevated myocardial infarction. Continue medical management. 3. Tachycardia. Dr. Ying has increased metoprolol succinate to 100 mg daily. 4. Severe peripheral artery disease post extensive surgical treatment by her vascular surgeon at [facility] and subsequently completed 3 weeks of rehab. 5. Hypertension, hypertensive cardiovascular disease with elevated blood sugars at home. Continue lisinopril 5 mg daily, Imdur 60 mg daily, Toprol-XL. 6. Chronic CKD stage II, stable. 7. CAD post CABG with ischemic cardiopathy post AICD. 7. Carotid artery disease status post carotid endarterectomies. Continue with aspirin, Plavix, Lipitor for secondary prevention. 8. Ucontrolled diabetes mellitus type 2 with hyperglycemia and PVD complications, neuropathy. Check A1c. Continue Levemir 10 units at bedtime, NovoLog 4 units with meals and scale. At home patient is on trulicity, Lantus 10 units at bedtime and Humalog 4 units with meals and as scheduled. 9. Hyperlipidemia. Continue patient on Lipitor 80 mg orally once every day. 10. History of left subclavian stenosis. Post stenting. Stable at this time. 11. Hypomagnesemia, replacement. 12. History of GERD. Continue patient on Prevacid 30 mg orally once every day. 13. Vitamin D deficiency. Continue patient on vitamin D 1000 units once every day. 14. Recurrent depression. Continue Cymbalta 60 mg orally once every day. 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 18. DVT prophylaxis. 19. GI prophylaxis. Continue PPI. CODE STATUS: full code. Discharge plan: [facility] today The above impression and plan of care have been discussed and directed by signing physician. Rosetta Whatley nurse practitioner acting as scribe for signing physician.
[2017-11-06 11:33] VITALS: BP 123/58; PULSE 83; TEMP 97.2
--- NOTE | 2017-11-06 11:37 | P.PN ---
Subjective Progress Note Date: 11/06/17 This is a 72-year-old female patient of Dr. Lizama in the office with a previous medical history significant for coronary artery disease status post coronary artery bypass graft with ischemic cardiomyopathy and percutaneous coronary intervention and a total of 4 stents placement last one was put in the LAD back in November 2014, AICD placement, history of left subclavian stenosis status post stenting, carotid artery disease status post bilateral carotid endarterectomies, severe peripheral arterial occlusive disease. She follows with Dr. Amezcua at [facility], vascular surgeon for possible revascularization of the left lower extremity, however patient underwent angiogram was not a candidate for any surgical intervention according to him and she was placed on Pletal. She had a recent hospitalization in September for acute loss of motor functioning bilateral leg accompanied by sudden paresthesias bilaterally lower extremity due to spinal stenosis and acute kidney injury and discharged home. P[place]ient was recently hospitalized at [facility] for total of 5 weeks and 3 weeks of that being rehab. She had extensive procedures done by her vascular surgeon. Patient underwent exploratory laparotomy, aortogram with runoff via ultrasound-guided access to the left arm approach, endovascular placement of aortic stents for occlusive disease of the aorta. Left iliac stents, fem-fem bypass with right great saphenous vein. During that hospitalization patient also underwent a Lexiscan which revealed a perfusion defect in the apical anterior wall region subsequently patient underwent a cardiac catheterization which revealed stable ischemic heart disease with a patent HA, saphenous vein graft to the RCA. 100% occluded circumflex with collaterals. Abnormal systolic/diastolic function, PAD. Medical therapy advised at that time. She also underwent an echocardiogram with Doppler study during that admission to [place] which revealed an ejection fraction of 43%. Patient presented to the hospital with symptoms of nausea and vomiting, subsequent to her admission here she developed chest discomfort . Most of the data from [facility] was just received today, patient was actually scheduled to undergo cardiac catheterization today by Dr. Brady, once the information from [place] was reviewed, the cardiac catheterization was deferred. She is denying any chest discomfort today, just complains of feeling tired. Echocardiogram with Doppler study which was performed here revealed an ejection fraction of 20-25% with severe global hypokinesia, moderate mitral regurg and moderate pulmonary hypertension. 11/04/2017 Patient was seen and examined this morning, overall feeling stronger today. Denies any chest discomfort, breathing overall is stable. Let pressure 112/60 with a heart rate in the 60s, 98% on room air. White blood cell count 4.8, hemoglobin 9.1, platelet count 209. Sodium 134, potassium 4.0, BUN 20, creatinine 0.8. 11/05/2017 Patient was seen and examined this morning, she is feeling better overall. Slept well through the night last night. Blood pressure this morning 108/60 with a heart rate in the 70s, white blood cell count 4.6, hemoglobin 9.3, platelet count 195. Sodium 138, potassium 4.7, BUN 16, creatinine 0.8. Magnesium 1.6. 11/06/2017 was seen and examined this morning, no complaints. Let pressure 122/58, heart rate in the 80s, 100% on room air. White blood cell count 4.6, hemoglobin 9.9, platelet count 198. Objective - Vital Signs Vital signs: Vital Signs Temp 97.2 F L 11/06/17 11:29 Pulse 83 11/06/17 11:29 Resp 18 11/06/17 11:29 BP 123/58 11/06/17 11:29 Pulse Ox 100 11/06/17 11:29 Intake & Output 11/05/17 11/06/17 11/06/17 18:59 06:59 18:59 Intake Total 480 140 190 Output Total 900 Balance -420 140 190 Weight 62.9 kg Intake: IV 40 10 0.9 40 10 Intake, IV Titration 100 Amount Levofloxacin 500Mg-D5w 100 Pmx 500 mg In Dextrose/ Water 1 100ml.bag @ 100 mls/hr IVPB Q24H [facility] Rx#: [id number] Oral 480 180 Output: Urine 900 Other: Voiding Method Bedside Commode Bedside Commode Bedside Commode - Exam PHYSICAL EXAMINATION: GENERAL: 72-year-old female in no apparent distress at the time of my examination HEENT: Head is atraumatic, normocephalic. Pupils equal, round. Sclera anicteric. Conjunctiva are clear. Mucous membranes of the mouth are moist. Neck is supple. There is no elevated jugular venous pressure.] bruit is heard. HEART EXAMINATION: Heart S1 and S2 1 systolic murmur is heard. CHEST EXAMINATION: Lungs are clear to auscultation and precussion. No chest wall tenderness is noted on palpation or with deep breathing. ABDOMEN: Soft, nontender. Bowel sounds are heard. No organomegaly noted. EXTREMITIES: 1+ bilateral peripheral edema. On the right foot, tips of the toes are black, on the left third and fourth toes a blackened discoloration is also noted. Patient has an incision at the right inner thigh, dry and intact, and place.. NEUROLOGIC patient is awake, alert and oriented -3. . - Labs CBC & Chem 7: 11/06/17 05:35 11/05/17 06:08 Labs: Abnormal Lab Results - Last 24 Hours (Table) 11/05/17 11/05/17 11/06/17 Range/Units 16:38 20:52 05:35 RBC 3.51 L (3.80-5.40) m/uL Hgb 9.9 L (11.4-16.0) gm/dL Hct 32.4 L (34.0-46.0) % MCHC 30.6 L (31.0-37.0) g/dL POC Glucose (mg/dL) 109 H 113 H (75-99) mg/dL 11/06/17 Range/Units 06:34 RBC (3.80-5.40) m/uL Hgb (11.4-16.0) gm/dL Hct (34.0-46.0) % MCHC (31.0-37.0) g/dL POC Glucose (mg/dL) 143 H (75-99) mg/dL Assessment and Plan Plan: Assessment and plan #1 acute nausea and vomiting, likely secondary to gastroenteritis, possibly viral #2 chest pain with abnormal EKG and mildly abnormal troponin. Patient recently underwent a cardiac catheterization earlier this month medical therapy advised. #3 severe peripheral arterial disease, status post recent endovascular placement of aortic stent for occlusive disease of the aorta, left iliac stent, and fem-fem bypass with great saphenous vein at [facility]. #4 Severe peripheral vascular disease #5 Hypertension #6 Chronic kidney disease stage II stable #7 Hypertension #8 CAD with prior bypass surgery and stent placements #9 Ischemic cardiomyopathy with prior AICD #10 Diabetes, uncontrolled #11 Hyperlipidemia #12 History of left subclavian stenosis status post stenting #13 Post polio #14 GERD #15 anemia Plan From cardiology's perspective, we'll continue current medications. She may be able to be discharged home once cleared by primary, we will make her a follow- up appointment to see Dr. Brady in the office post discharge. DNP note has been reviewed, I agree with a documented findings and plan of care. Patient was seen and examined.
[2017-11-06 12:10] LABS: Glucose,Whole Blood 183 mg/dL (75-99)
[2017-11-06] MEDS: SPIRONOLACTONE 25 MG TAB PO SCH (12:22)
[2017-11-06] MEDS: LISINOPRIL 5 MG TAB PO SCH (12:22)
== END 2017-11-06 15:34 | DRG 392 ==
LOC: EC 23:02 → 6SEL 11-01 00:33
PROVIDERS: ADMIT Internal Medicine; ATTEND Internal Medicine
DX: K52.9 Noninfective gastroenteritis and colitis, unspecified (principal); E11.52 Type 2 diabetes mellitus with diabetic peripheral angiopathy with gangrene; F33.9 Major depressive disorder, recurrent, unspecified; I13.0 Hypertensive heart and chronic kidney disease with heart failure and stage 1 through stage 4 chronic kidney disease, or unspecified chronic kidney disease; D64.9 Anemia, unspecified; E11.65 Type 2 diabetes mellitus with hyperglycemia; E11.22 Type 2 diabetes mellitus with diabetic chronic kidney disease; E78.5 Hyperlipidemia, unspecified; E83.42 Hypomagnesemia; E86.0 Dehydration; F41.9 Anxiety disorder, unspecified; I08.3 Combined rheumatic disorders of mitral, aortic and tricuspid valves; I25.119 Atherosclerotic heart disease of native coronary artery with unspecified angina pectoris; I25.2 Old myocardial infarction; I25.5 Ischemic cardiomyopathy; I25.82 Chronic total occlusion of coronary artery; I27.20 Pulmonary hypertension, unspecified; I50.9 Heart failure, unspecified; K21.9 Gastro-esophageal reflux disease without esophagitis; N18.2 Chronic kidney disease, stage 2 (mild); Z79.01 Long term (current) use of anticoagulants; Z79.02 Long term (current) use of antithrombotics/antiplatelets; Z79.4 Long term (current) use of insulin; Z79.82 Long term (current) use of aspirin; Z79.899 Other long term (current) drug therapy; Z80.8 Family history of malignant neoplasm of other organs or systems; Z82.49 Family history of ischemic heart disease and other diseases of the circulatory system; Z86.12 Personal history of poliomyelitis; Z86.73 Personal history of transient ischemic attack (TIA), and cerebral infarction without residual deficits; Z90.710 Acquired absence of both cervix and uterus; Z95.1 Presence of aortocoronary bypass graft; Z95.5 Presence of coronary angioplasty implant and graft; Z95.810 Presence of automatic (implantable) cardiac defibrillator; R07.9 Chest pain, unspecified; I70.293 Other atherosclerosis of native arteries of extremities, bilateral legs; R00.0 Tachycardia, unspecified; Z88.5 Allergy status to narcotic agent; Z88.8 Allergy status to other drugs, medicaments and biological substances; Z91.040 Latex allergy status; Z90.49 Acquired absence of other specified parts of digestive tract; Z98.42 Cataract extraction status, left eye
CPT/HCPCS: 36415; 74022; 74177; 80048; 80053; 80061; 82550; 82553; 83036; 83690; 83735; 83880; 84484; 85025; 85610; 85730; 86850; 86900; 86901; 93005; 93306; 93458; 94760; 96361; 96365; 96375; 99285

== ENCOUNTER 2017-12-16 18:24 | Emergency (ER) | payer MEDICARE, OTHER ==
[2017-12-16] MEDS ORDERED: SODIUM CHLORIDE 0.9% 1,000 ML IV STA (18:27)
--- NOTE | 2017-12-16 18:28 | ED ---
General Adult HPI - General Stated complaint: Fall Time Seen by Provider: 12/16/17 18:25 Source: RN notes reviewed, old records reviewed - History of Present Illness Initial comments: This is a 9-year-old female. This patient resents today status post fall. Patient a fall forward hitting head. No loss of consciousness. Patient denies any other significant pain or injury. Patient denies current chest pain shortness of breath or abdominal pain. No recent change in medication - Related Data Home Medications Medication Instructions Recorded Confirmed Clopidogrel [Plavix] 75 mg PO DAILY@89911/22/14 12/19/17 Cholecalciferol [Vitamin D3] 2,000 unit PO DAILY@89902/02/17 12/19/17 DULoxetine HCL [Cymbalta] 60 mg PO DAILY@89902/02/17 12/19/17 Lansoprazole [Prevacid] 30 mg PO DAILY@89902/02/17 12/19/17 Multivitamins, Thera [Multivitamin 1 tab PO DAILY@89906/16/17 12/19/17 (formulary)] Ubidecarenone [Co Q-10] 400 mg PO DAILY@89906/16/17 12/19/17 Bifidobacterium Infantis [Align] 4 mg PO DAILY@89909/18/17 12/19/17 Isosorbide Mononitrate ER [Imdur] 60 mg PO DAILY@89909/18/17 12/19/17 Nitroglycerin Sl Tabs [Nitrostat] 0.4 mg SUBLINGUAL Q5M PRN 09/18/17 12/19/17 Apixaban [Eliquis] 5 mg PO BID@899,209910/31/17 12/19/17 Aspirin 81 mg PO DAILY@89910/31/17 12/19/17 Atorvastatin [Lipitor] 80 mg PO HS@209910/31/17 12/19/17 Calcium Carbonate 648mg 648 mg PO BID@10/31/17 12/19/17 Dulaglutide [Trulicity] 0.75 mg SQ WE 10/31/17 12/19/17 Fenofibrate [Lofibra] 160 mg PO DAILY@89910/31/17 12/19/17 Gabapentin [Neurontin] 100 mg PO TID@0900,1200,1700 06/15/18 08/03/18 INSULIN LISPRO (humaLOG) [humaLOG] 4 units SQ AC-TID@09,12,17 10/31/17 12/19/17 INSULIN LISPRO (humaLOG) [humaLOG] See Protocol SQ ACHS 10/31/17 12/19/17 Insulin Glargine [Lantus] 10 units SQ HS@2100 10/31/17 12/19/17 Ketorolac 0.5% Ophth Soln [Acular 1 drops LEFT EYE BID 10/31/17 12/19/17 0.5%] Lifitegrast [Xiidra] 1 drop BOTH EYES BID 10/31/17 12/19/17 Lisinopril [Zestril] 5 mg PO DAILY@0900 10/31/17 12/19/17 Previous Rx's Medication Instructions Recorded traMADol HCL [Ultram] 50 mg PO Q4HR PRN #30 tablet 11/05/17 Metoprolol Succinate (ER) [Toprol 100 mg PO DAILY #30 tab 11/06/17 XL] Midodrine [ProAmatine] 5 mg PO TID #30 tablet 11/06/17 Spironolactone [Aldactone] 25 mg PO DAILY #20 tablet 11/06/17 Allergies Allergy/AdvReac Type Severity Reaction Status Date / Time adhesive Allergy Itching Verified 12/19/17 14:47 codeine Allergy Hallucinati Verified 12/19/17 14:47 ons dipyridamole Allergy heart Verified 12/19/17 14:47 [From Persantine] stopped latex AdvReac Rash/Hives Verified 12/19/17 14:47 metformin AdvReac "passed Verified 12/19/17 14:47 out" Review of Systems ROS Statement: Those systems with pertinent positive or pertinent negative responses have been documented in the HPI. ROS Other: All systems not noted in ROS Statement are negative. Past Medical History Past Medical History: Coronary Artery Disease (CAD), Chest Pain / Angina, Heart Failure, CVA/TIA, Diabetes Mellitus, GERD/Reflux, Hyperlipidemia, Hypertension, Myocardial Infarction ([place]), Osteoarthritis (OA), Syncope Additional Past Medical History / Comment(s): HX OF POLIO, PAD, ISCHEMIC CARDIOMYOPATHY., RT CATARACTS., USES WALKER. Last Myocardial Infarction Date:: 2012 History of Any Multi-Drug Resistant Organisms: None Reported Past Surgical History: AICD, Appendectomy, Section, Cholecystectomy, Coronary Bypass/CABG, Heart Catheterization, Heart Catheterization With Stent, Hysterectomy Additional Past Surgical History / Comment(s): ABIMBOLA CAROTID ENDARTERECTOMY., OVARIAN CYST., STENT LT SUBCLAVIAN - TOTAL 4 STENTS ., [employer] AICD. , LT CATARACT REMOVED Past Anesthesia/Blood Transfusion Reactions: No Reported Reaction Date of Last Stent Placement:: 11/2014 Type of Cardiac Device: AICD Device Placement Date:: 2014 Past Psychological History: Anxiety, Depression Smoking Status: Never smoker Past Alcohol Use History: None Reported Past Drug Use History: None Reported - Past Family History Father Family Medical History: Cancer Additional Family Medical History / Comment(s): pt. states her father had throat cancer Mother Family Medical History: Coronary Artery Disease (CAD), Hyperlipidemia, Hypertension Additional Family Medical History / Comment(s): CABG General Exam - General Exam Comments Initial Comments: Small abrasion type lacerations to forehead minimal bleeding to no bleeding General appearance: alert, in no apparent distress Head exam: Present: atraumatic, normocephalic, normal inspection Eye exam: Present: normal appearance, PERRL, EOMI. Absent: scleral icterus, conjunctival injection, periorbital swelling ENT exam: Present: normal exam, mucous membranes moist Neck exam: Present: normal inspection. Absent: tenderness, meningismus, lymphadenopathy Respiratory exam: Present: normal lung sounds bilaterally. Absent: respiratory distress, wheezes, rales, rhonchi, stridor Cardiovascular Exam: Present: regular rate, normal rhythm, normal heart sounds. Absent: systolic murmur, diastolic murmur, rubs, gallop, clicks GI/Abdominal exam: Present: soft, normal bowel sounds. Absent: distended, tenderness, guarding, rebound, rigid Extremities exam: Present: normal inspection, full ROM, normal capillary refill. Absent: tenderness, pedal edema, joint swelling, calf tenderness Back exam: Present: normal inspection Neurological exam: Present: alert, oriented X3, CN II-XII intact Psychiatric exam: Present: normal affect, normal mood Skin exam: Present: warm, dry, intact, normal color. Absent: rash Course Vital Signs 12/16/17 18:31 Temperature 97.1 F L Pulse Rate 97 Respiratory 18 Rate Blood Pressure 112/60 O2 Sat by Pulse 100 Oximetry EKG Findings - EKG Comments: EKG Findings:: EKG shows sinus rhythm rate of 7, MA 196, QRS 112, QTc 469 Medical Decision Making - Medical Decision Making 72 female the ER status post fall. Patient is mild for her lacerations. Those are repaired with Dermabond. Patient has normal CT scans and patient can be discharged home - Lab Data Result diagrams: 12/16/17 18:40 12/16/17 18:40 Lab Results 12/16/17 12/16/17 12/16/17 Range/Units 18:40 18:40 18:40 WBC 6.3 (3.8-10.6) k/uL RBC 4.16 (3.80-5.40) m/uL Hgb 11.3 L (11.4-16.0) gm/dL Hct 35.4 (34.0-46.0) % MCV 85.3 D (80.0-100.0) fL MCH 27.3 (25.0-35.0) pg MCHC 32.0 (31.0-37.0) g/dL RDW 14.7 (11.5-15.5) % Plt Count 236 (150-450) k/uL Neutrophils % 71 % Lymphocytes % 22 % Monocytes % 4 % Eosinophils % 1 % Basophils % 0 % Neutrophils # 4.5 (1.3-7.7) k/uL Lymphocytes # 1.4 (1.0-4.8) k/uL Monocytes # 0.3 (0-1.0) k/uL Eosinophils # 0.1 (0-0.7) k/uL Basophils # 0.0 (0-0.2) k/uL Hypochromasia Slight PT (9.0-12.0) sec INR (<1.2) APTT (22.0-30.0) sec Sodium 131 L (137-145) mmol/L Potassium 4.4 (3.5-5.1) mmol/L Chloride 100 (98-107) mmol/L Carbon Dioxide 20 L (22-30) mmol/L Anion Gap 11 mmol/L BUN 20 H (7-17) mg/dL Creatinine 0.80 (0.52-1.04) mg/dL Est GFR (CKD-EPI)AfAm 87 (>60 ml/min/1.73 sqM) Est GFR (CKD-EPI)NonAf 75 (>60 ml/min/1.73 sqM) Glucose 333 H (74-99) mg/dL Plasma Lactic Acid Joshua (0.7-2.0) mmol/L Calcium 9.6 (8.4-10.2) mg/dL Total Bilirubin 0.6 (0.2-1.3) mg/dL AST 31 (14-36) U/L ALT 30 (9-52) U/L Alkaline Phosphatase 50 (38-126) U/L Total Creatine Kinase <20 L (30-135) U/L CK-MB (CK-2) 0.5 (0.0-2.4) ng/mL CK-MB (CK-2) Rel Index Troponin I 0.015 (0.000-0.034) ng/mL Total Protein 5.9 L (6.3-8.2) g/dL Albumin 3.6 (3.5-5.0) g/dL Amylase 44 (30-110) U/L Lipase 288 (23-300) U/L Serum Alcohol <10 mg/dL Blood Type Blood Type Recheck Antibody Screen Spec Expiration Date 12/16/17 12/16/17 12/16/17 Range/Units 18:40 18:40 18:40 WBC (3.8-10.6) k/uL RBC (3.80-5.40) m/uL Hgb (11.4-16.0) gm/dL Hct (34.0-46.0) % MCV (80.0-100.0) fL MCH (25.0-35.0) pg MCHC (31.0-37.0) g/dL RDW (11.5-15.5) % Plt Count (150-450) k/uL Neutrophils % % Lymphocytes % % Monocytes % % Eosinophils % % Basophils % % Neutrophils # (1.3-7.7) k/uL Lymphocytes # (1.0-4.8) k/uL Monocytes # (0-1.0) k/uL Eosinophils # (0-0.7) k/uL Basophils # (0-0.2) k/uL Hypochromasia PT 11.4 (9.0-12.0) sec INR 1.2 H (<1.2) APTT 24.1 (22.0-30.0) sec Sodium (137-145) mmol/L Potassium (3.5-5.1) mmol/L Chloride (98-107) mmol/L Carbon Dioxide (22-30) mmol/L Anion Gap mmol/L BUN (7-17) mg/dL Creatinine (0.52-1.04) mg/dL Est GFR (CKD-EPI)AfAm (>60 ml/min/1.73 sqM) Est GFR (CKD-EPI)NonAf (>60 ml/min/1.73 sqM) Glucose (74-99) mg/dL Plasma Lactic Acid Joshua 1.8 (0.7-2.0) mmol/L Calcium (8.4-10.2) mg/dL Total Bilirubin (0.2-1.3) mg/dL AST (14-36) U/L ALT (9-52) U/L Alkaline Phosphatase (38-126) U/L Total Creatine Kinase (30-135) U/L CK-MB (CK-2) (0.0-2.4) ng/mL CK-MB (CK-2) Rel Index Troponin I (0.000-0.034) ng/mL Total Protein (6.3-8.2) g/dL Albumin (3.5-5.0) g/dL Amylase (30-110) U/L Lipase (23-300) U/L Serum Alcohol mg/dL Blood Type A Positive Blood Type Recheck No Antibody Screen NEGATIVE Spec Expiration Date 12/19/2017 - 8236 - Radiology Data Radiology results: report reviewed (CT brain C-spine and facial bones negative for acute disease x-ray chest and pelvis negative), image reviewed Disposition Clinical Impression: Fall, Hand injury, Forehead laceration Disposition: HOME SELF-CARE Condition: Good Instructions: Laceration (ED), Fall Prevention for Older Adults (ED), Head Injury (ED) Is patient prescribed a controlled substance at d/c from ED?: No Referrals: Bernabe Azul MD [REFERRING] - 1-2 days
[2017-12-16 18:35] VITALS: BP 112/60; PULSE 97; RESP 18; TEMP 97.1
--- NOTE | 2017-12-16 18:52 | XR ---
EXAMINATION TYPE: XR chest 1V portable DATE OF EXAM: 12/16/2017 COMPARISON: 09/22/2017 HISTORY: Chest pain after trauma. TECHNIQUE: Single frontal view of the chest is obtained. FINDINGS: There is no focal air space opacity, pleural effusion, or pneumothorax seen. Single lead l eft-sided cardiac device, cardiac silhouette prominence, and post CABG changes the chest are similar to the prior. Cholecystectomy clips are also seen. The osseous structures are grossly intact with dif fuse osseous demineralization and degenerative changes of the spine and acromio clavicular joints. IMPRESSION: Chronic changes with no acute cardiopulmonary process.
--- NOTE | 2017-12-16 18:55 | XR ---
EXAMINATION TYPE: XR pelvis AP view DATE OF EXAM: 12/16/2017 CLINICAL HISTORY: Trauma and pelvic pain. TECHNIQUE: A single AP view of the pelvis is obtained. COMPARISON: None. FINDINGS: Aortoiliac stent is seen. Postsurgical change of the right inguinal region is also noted. Extensive vascular calcifications are seen of the abdominal aorta and its branches. There is diffuse osseous demineralization seen. No gross evidence of acute fracture or dislocation in the pelvis. Sacr oiliac joints appear symmetric. Degenerative changes of the lumbosacral spine are moderate. No dilate d bowel. Mild femoral acetabular arthropathy is also seen. IMPRESSION: There is no acute fracture or dislocation in the pelvis. Osseous demineralization, exten sive atherosclerosis, postsurgical changes of the vasculature, and degenerative changes of the lumbos acral spine and femoral acetabular joints.
[2017-12-16 19:01] LABS: Basophils % (A) 0 %; Eosinophils # (A) 0.1 k/uL (0-0.7); Eosinophils % (A) 1 %; HCT 35.4 % (34.0-46.0); HGB 11.3 gm/dL (11.4-16.0); Hypochromasia Slight; Lymphocytes # (A) 1.4 k/uL (1.0-4.8); Lymphocytes % (A) 22 %; MCH 27.3 pg (25.0-35.0); Mean Platelet Volume 7.6; Monocytes # (A) 0.3 k/uL (0-1.0); Monocytes % (A) 4 %; Neutrophils # (A) 4.5 k/uL (1.3-7.7); Neutrophils % (A) 71 %; Platelet Count 236 k/uL (150-450); RBC 4.16 m/uL (3.80-5.40); RDW 14.7 % (11.5-15.5); WBC 6.3 k/uL (3.8-10.6)
[2017-12-16 19:02] LABS: MCV 85.3 fL (80.0-100.0)
[2017-12-16 19:07] LABS: INR 1.2 (<1.2); Partial Thromboplastin Time 24.1 sec (22.0-30.0); Prothrombin Time 11.4 sec (9.0-12.0)
[2017-12-16 19:22] LABS: Creatine Kinase <20 U/L (30-135)
--- NOTE | 2017-12-16 19:25 | CT ---
EXAMINATION TYPE: CT brain brad carney con DATE OF EXAM: 12/16/2017 COMPARISON: 11/26/2016 HISTORY: trauma with head and neck pain CT DLP: 1014.9 mGycm. Automated Exposure Control for Dose Reduction was Utilized. TECHNIQUE: CT scan of the head and cervical spine are performed without contrast. FINDINGS: There is no acute intracranial hemorrhage, mass effect, or midline shift identified. The ventricles and sulci are symmetrically prominent compatible with age-related volume loss. The globe s are intact and the visualized sinuses are clear. There is a left frontal scalp hematoma measuring 9 mm in greatest thickness. There is mild grade 1 anterolisthesis of C2 on C3. There is no prevertebral soft tissue swelling evid ent. Subtle cortical defects of the lamina are seen on a single axial view only and not reproduced on the sagittal images and also not seen at the axial slices above or below likely representing promine nt vascular grooves. There are extensive degenerative changes of the cervical spine with advanced uncovertebral hypertroph y and facet arthropathy throughout creating variable degrees of neural foraminal narrowing. No verteb ral body height loss is seen although there is motion artifact within the inferior cervical spine. Th ere is also straightening of usual cervical lordosis. Extensive atherosclerosis is seen of the carotid arteries most significant within the right common ca rotid artery. There is motion artifact through the cervical thoracic junction, however there appears to be minimall y displaced fractures of the transverse processes of T1 and T2 that are indeterminate age as there do es appear to be some callus formation and sclerosis as well as subchondral cystic change. There is partial visualization of a vascular stent within the left subclavian artery. Lung apices dem onstrate no evidence of pneumothorax. Disc osteophyte complex that C2-C3 with small central disc jessica iation creates moderate to severe spinal canal stenosis. IMPRESSION: 1. Slight anterolisthesis of C2 on C3 without prevertebral soft tissue swelling or findings to sugges t acute fracture. This is likely degenerative basis, however slight unusually in location. If there i s focal tenderness MRI could be performed to evaluate for occult fracture and bone marrow edema. 2. Left frontal scalp hematoma measuring 9 mm in greatest thickness with no underlying calvarial frac ture or intracranial hemorrhage appreciated. No acute intracranial process is seen. 3. Likely subacute to chronic fractures of the transverse processes of T1 and T2 although these are a ge indeterminate. These are favored to be subacute to chronic as there is some callus formation and s ubchondral cystic change. 4. Central disc herniation/protrusion at C2-C3 creating moderate to severe spinal canal stenosis. 5. Extensive atherosclerosis of the carotid arteries, likely known to the patient as there is a left subclavian stent partially visualized.
--- NOTE | 2017-12-16 19:27 | CT ---
EXAMINATION TYPE: CT facial bones wo con DATE OF EXAM: 12/16/2017 HISTORY: trauma CT DLP: 795.9 mGycm. Automated Exposure Control for Dose Reduction was Utilized. TECHNIQUE: CT scan of the head is performed without contrast. COMPARISON: CT brain of the same date. FINDINGS: Visualized portions of the brain are discussed in the CT brain dictation of the same date. The paranasal sinuses and visualized portions of the mastoid air cells are well aerated other than a small osseous septum of the left maxillary sinus. Nasal septum and nasal bone appear intact. Orbits are symmetric. Globes appear to maintain a normal rounded morphology. Extraocular muscles are also sy mmetric. Maxillary spine and zygomatic arches are intact. No gross evidence of facial bone fracture. There is redemonstration of a left frontal scalp hematoma as visualized on the recent CT of the same date. Mandibular condyles are located within the mandibular fossa. Ocular lenses appear surgically ab sent or significantly atrophic. IMPRESSION: No evidence of acute facial bone fracture. Left frontal scalp hematoma is seen on the CT brain of the same date.
[2017-12-16 19:34] LABS: Creatine Kinase MB 0.5 ng/mL (0.0-2.4); Troponin I 0.015 ng/mL (0.000-0.034)
[2017-12-16 19:43] LABS: ALT 30 U/L (9-52); AST 31 U/L (14-36); Albumin 3.6 g/dL (3.5-5.0); Alcohol <10 mg/dL; Alkaline Phosphatase 50 U/L (38-126); Amylase 44 U/L (30-110); Anion Gap 11 mmol/L; Blood Urea Nitrogen 20 mg/dL (7-17); Calcium 9.6 mg/dL (8.4-10.2); Carbon Dioxide 20 mmol/L (22-30); Chloride 100 mmol/L (98-107); Glucose 333 mg/dL (74-99); Lipase 288 U/L (23-300); Potassium 4.4 mmol/L (3.5-5.1); Sodium 131 mmol/L (137-145); Total Bilirubin 0.6 mg/dL (0.2-1.3); Total Protein 5.9 g/dL (6.3-8.2)
[2017-12-16] MEDS ORDERED: TOPICAL SKIN ADHESIVE 1 EACH AMP TOPICAL ONE (20:10)
--- NOTE | 2017-12-24 05:01 | CDI ---
Documentation Clarification OP Dear Lopez Mena, DO Please do addendum to ED report for missing length of laceration repair done. Thank you, Nikolas Puri Engine Dynamometer Tester If you have any questions, please contact Ship Rigger Apprentice at [phone] [facility]
== END 2017-12-16 20:45 | disposition home or self-care (01) ==
LOC: EC 18:24
DX: S01.81XA Laceration without foreign body of other part of head, initial encounter (principal); I25.10 Atherosclerotic heart disease of native coronary artery without angina pectoris; I11.0 Hypertensive heart disease with heart failure; I50.9 Heart failure, unspecified; E11.9 Type 2 diabetes mellitus without complications; K21.9 Gastro-esophageal reflux disease without esophagitis; E78.5 Hyperlipidemia, unspecified; I25.2 Old myocardial infarction; M19.90 Unspecified osteoarthritis, unspecified site; I73.9 Peripheral vascular disease, unspecified; I42.9 Cardiomyopathy, unspecified; F41.9 Anxiety disorder, unspecified; F32.9 Major depressive disorder, single episode, unspecified; Z95.810 Presence of automatic (implantable) cardiac defibrillator; Z95.1 Presence of aortocoronary bypass graft; Z90.49 Acquired absence of other specified parts of digestive tract; Z95.5 Presence of coronary angioplasty implant and graft; Z98.890 Other specified postprocedural states; Z79.02 Long term (current) use of antithrombotics/antiplatelets; Z79.01 Long term (current) use of anticoagulants; Z79.82 Long term (current) use of aspirin; Z79.4 Long term (current) use of insulin; Z79.899 Other long term (current) drug therapy; Z88.5 Allergy status to narcotic agent; Z88.8 Allergy status to other drugs, medicaments and biological substances; Z91.040 Latex allergy status; Z91.048 Other nonmedicinal substance allergy status; W06.XXXA Fall from bed, initial encounter; Y92.009 Unspecified place in unspecified non-institutional (private) residence as the place of occurrence of the external cause
CPT/HCPCS: 12011; 36415; 70450; 70486; 71045; 72125; 72170; 80053; 80320; 82150; 82550; 82553; 83605; 83690; 84484; 85025; 85610; 85730; 86850; 86900; 86901; 93005; 99285

== ENCOUNTER 2017-12-19 14:19 | Inpatient (IN) | payer MEDICARE, OTHER ==
[2017-12-19] MEDS ORDERED: SODIUM CHLORIDE 0.9% 500 ML IV STA (14:23)
--- NOTE | 2017-12-19 14:44 | ED ---
General Adult HPI - General Chief complaint: Syncope Stated complaint: Near syncope Time Seen by Provider: 12/19/17 14:23 Source: patient, EMS, RN notes reviewed, old records reviewed Mode of arrival: EMS Limitations: no limitations - History of Present Illness Initial comments: 72-year-old female presents for evaluation of lightheadedness and dizziness. Patient states she has been symptomatic throughout the day today. She has had recent episodes of near-syncope and multiple falls. She most recently fell within the last week with head trauma. She has ecchymosis of the forehead, bilateral eyes and midface. She denies fall today. No new pain complaints. Denies chest pain. Denies abdominal pain. Denies nausea vomiting or diarrhea. Denies any extremity pain. - Related Data Home Medications Medication Instructions Recorded Confirmed Clopidogrel [Plavix] 75 mg PO DAILY@89911/22/14 12/19/17 Cholecalciferol [Vitamin D3] 2,000 unit PO DAILY@89902/02/17 12/19/17 DULoxetine HCL [Cymbalta] 60 mg PO DAILY@89902/02/17 12/19/17 Lansoprazole [Prevacid] 30 mg PO DAILY@89902/02/17 12/19/17 Multivitamins, Thera [Multivitamin 1 tab PO DAILY@89906/16/17 12/19/17 (formulary)] Ubidecarenone [Co Q-10] 400 mg PO DAILY@89906/16/17 12/19/17 Bifidobacterium Infantis [Align] 4 mg PO DAILY@89909/18/17 12/19/17 Isosorbide Mononitrate ER [Imdur] 60 mg PO DAILY@89909/18/17 12/19/17 Nitroglycerin Sl Tabs [Nitrostat] 0.4 mg SUBLINGUAL Q5M PRN 09/18/17 12/19/17 Apixaban [Eliquis] 5 mg PO BID@10/31/17 12/19/17 Aspirin 81 mg PO DAILY@89910/31/17 12/19/17 Atorvastatin [Lipitor] 80 mg PO HS@209910/31/17 12/19/17 Calcium Carbonate 648mg 648 mg PO BID@10/31/17 12/19/17 Dulaglutide [Trulicity] 0.75 mg SQ WE 10/31/17 12/19/17 Fenofibrate [Lofibra] 160 mg PO DAILY@0900 10/31/17 12/19/17 Gabapentin [Neurontin] 100 mg PO TID@0900,1200,1700 10/31/17 12/19/17 INSULIN LISPRO (humaLOG) [humaLOG] 4 units SQ AC-TID@09,12,17 10/31/17 12/19/17 INSULIN LISPRO (humaLOG) [humaLOG] See Protocol SQ ACHS 10/31/17 12/19/17 Insulin Glargine [Lantus] 10 units SQ HS@2100 10/31/17 12/19/17 Ketorolac 0.5% Ophth Soln [Acular 1 drops LEFT EYE BID 10/31/17 12/19/17 0.5%] Lifitegrast [Xiidra] 1 drop BOTH EYES BID 10/31/17 12/19/17 Lisinopril [Zestril] 5 mg PO DAILY@0900 10/31/17 12/19/17 Previous Rx's Medication Instructions Recorded traMADol HCL [Ultram] 50 mg PO Q4HR PRN #30 tablet 11/05/17 Metoprolol Succinate (ER) [Toprol 100 mg PO DAILY #30 tab 11/06/17 XL] Midodrine [ProAmatine] 5 mg PO TID #30 tablet 11/06/17 Spironolactone [Aldactone] 25 mg PO DAILY #20 tablet 11/06/17 Allergies Allergy/AdvReac Type Severity Reaction Status Date / Time adhesive Allergy Itching Verified 12/19/17 14:47 codeine Allergy Hallucinati Verified 12/19/17 14:47 ons dipyridamole Allergy heart Verified 12/19/17 14:47 [From Persantine] stopped latex AdvReac Rash/Hives Verified 12/19/17 14:47 metformin AdvReac "passed Verified 12/19/17 14:47 out" Review of Systems ROS Statement: Those systems with pertinent positive or pertinent negative responses have been documented in the HPI. ROS Other: All systems not noted in ROS Statement are negative. Past Medical History Past Medical History: Coronary Artery Disease (CAD), Chest Pain / Angina, Heart Failure, CVA/TIA, Diabetes Mellitus, GERD/Reflux, Hyperlipidemia, Hypertension, Myocardial Infarction ([place]), Osteoarthritis (OA), Syncope Additional Past Medical History / Comment(s): HX OF POLIO, PAD, ISCHEMIC CARDIOMYOPATHY., RT CATARACTS., USES WALKER. Last Myocardial Infarction Date:: 2012 History of Any Multi-Drug Resistant Organisms: None Reported Past Surgical History: AICD, Appendectomy, Section, Cholecystectomy, Coronary Bypass/CABG, Heart Catheterization, Heart Catheterization With Stent, Hysterectomy Additional Past Surgical History / Comment(s): ABIMBOLA CAROTID ENDARTERECTOMY., OVARIAN CYST., STENT LT SUBCLAVIAN - TOTAL 4 STENTS ., [employer] AICD. , LT CATARACT REMOVED Past Anesthesia/Blood Transfusion Reactions: No Reported Reaction Date of Last Stent Placement:: 11/2014 Type of Cardiac Device: AICD Device Placement Date:: 2014 Past Psychological History: Anxiety, Depression Smoking Status: Never smoker Past Alcohol Use History: None Reported Past Drug Use History: None Reported - Past Family History Father Family Medical History: Cancer Additional Family Medical History / Comment(s): pt. states her father had throat cancer Mother Family Medical History: Coronary Artery Disease (CAD), Hyperlipidemia, Hypertension Additional Family Medical History / Comment(s): CABG General Exam Limitations: no limitations General appearance: alert, in no apparent distress Head exam: Present: other (Significant periorbital ecchymosis, frontal contusion , abrasion, and hematoma) Eye exam: Present: normal appearance, PERRL, EOMI, periorbital swelling. Absent : nystagmus ENT exam: Present: normal exam Neck exam: Present: normal inspection. Absent: tenderness, meningismus Respiratory exam: Present: normal lung sounds bilaterally. Absent: respiratory distress, wheezes Cardiovascular Exam: Present: regular rate, normal rhythm, systolic murmur GI/Abdominal exam: Present: soft. Absent: distended, tenderness, guarding Extremities exam: Present: normal inspection, normal capillary refill. Absent: pedal edema Neurological exam: Present: alert, oriented X3, CN II-XII intact. Absent: motor sensory deficit Psychiatric exam: Present: normal affect, normal mood Skin exam: Present: warm, dry, intact. Absent: cyanosis, diaphoretic Course Vital Signs 12/19/17 12/19/17 12/19/17 14:28 14:50 15:20 Temperature 98.1 F Pulse Rate 69 68 69 Respiratory 18 18 Rate Blood Pressure 78/37 82/45 87/45 O2 Sat by Pulse 100 99 97 Oximetry EKG Findings - EKG Comments: EKG Findings:: EKG: Normal sinus rhythm, Q waves in the inferior lead suggestive of possible inferior infarct, T-wave abnormality in the lateral precordium with T wave inversion, rate of 68, NE interval 196, QRS duration 112 , QTC 476. T-wave inversion appears improved compared to previous EKG. Medical Decision Making - Medical Decision Making 72-year-old female with lightheadedness and near syncope. Found to be hypotensive by EMS. She continues to be hypotensive in the emergency department. She is given a total of 2 L of normal saline with some improvement although her blood pressure remains in the 80s systolic. She is mentating normally with a normal lactic acid. Hemoglobin is 9.4 which is down from previous however this appears close to the patient's baseline. Normal white blood cell count. Magnesium 1.5 which is replaced. Chest x-ray negative for focal pneumonia or air space disease CAT scan was obtained secondary to mild headache and recent facial trauma. This is negative for any acute intracranial pathology. Patient will be admitted for further IV hydration. Echo will be obtained, patient has systolic murmur and wide pulse pressure. Cardiology placed on consult at the request of the patient's admitting physician Dr. Mcginnis. - Lab Data Result diagrams: 12/19/17 14:48 12/19/17 14:48 Lab Results 12/19/17 12/19/17 12/19/17 Range/Units 14:48 14:48 14:48 WBC 6.1 (3.8-10.6) k/uL RBC 3.54 L (3.80-5.40) m/uL Hgb 9.5 L D (11.4-16.0) gm/dL Hct 29.8 L (34.0-46.0) % MCV 84.2 (80.0-100.0) fL MCH 26.8 (25.0-35.0) pg MCHC 31.9 (31.0-37.0) g/dL RDW 14.4 (11.5-15.5) % Plt Count 220 (150-450) k/uL Neutrophils % 64 % Lymphocytes % 27 % Monocytes % 5 % Eosinophils % 3 % Basophils % 0 % Neutrophils # 3.9 (1.3-7.7) k/uL Lymphocytes # 1.6 (1.0-4.8) k/uL Monocytes # 0.3 (0-1.0) k/uL Eosinophils # 0.2 (0-0.7) k/uL Basophils # 0.0 (0-0.2) k/uL Hypochromasia Slight PT (9.0-12.0) sec INR (<1.2) APTT (22.0-30.0) sec Sodium 136 L (137-145) mmol/L Potassium 4.1 (3.5-5.1) mmol/L Chloride 104 (98-107) mmol/L Carbon Dioxide 26 (22-30) mmol/L Anion Gap 6 mmol/L BUN 15 (7-17) mg/dL Creatinine 0.80 (0.52-1.04) mg/dL Est GFR (CKD-EPI)AfAm 87 (>60 ml/min/1.73 sqM) Est GFR (CKD-EPI)NonAf 75 (>60 ml/min/1.73 sqM) Glucose 114 H (74-99) mg/dL Plasma Lactic Acid Joshua (0.7-2.0) mmol/L Calcium 9.3 (8.4-10.2) mg/dL Magnesium 1.5 L (1.6-2.3) mg/dL Total Bilirubin 0.3 (0.2-1.3) mg/dL AST 25 (14-36) U/L ALT 30 (9-52) U/L Alkaline Phosphatase 35 L (38-126) U/L Total Creatine Kinase <20 L (30-135) U/L CK-MB (CK-2) 0.4 (0.0-2.4) ng/mL CK-MB (CK-2) Rel Index Troponin I 0.014 (0.000-0.034) ng/mL Total Protein 5.2 L (6.3-8.2) g/dL Albumin 3.0 L (3.5-5.0) g/dL 12/19/17 12/19/17 Range/Units 14:48 14:48 WBC (3.8-10.6) k/uL RBC (3.80-5.40) m/uL Hgb (11.4-16.0) gm/dL Hct (34.0-46.0) % MCV (80.0-100.0) fL MCH (25.0-35.0) pg MCHC (31.0-37.0) g/dL RDW (11.5-15.5) % Plt Count (150-450) k/uL Neutrophils % % Lymphocytes % % Monocytes % % Eosinophils % % Basophils % % Neutrophils # (1.3-7.7) k/uL Lymphocytes # (1.0-4.8) k/uL Monocytes # (0-1.0) k/uL Eosinophils # (0-0.7) k/uL Basophils # (0-0.2) k/uL Hypochromasia PT 11.6 (9.0-12.0) sec INR 1.2 H (<1.2) APTT 23.4 (22.0-30.0) sec Sodium (137-145) mmol/L Potassium (3.5-5.1) mmol/L Chloride (98-107) mmol/L Carbon Dioxide (22-30) mmol/L Anion Gap mmol/L BUN (7-17) mg/dL Creatinine (0.52-1.04) mg/dL Est GFR (CKD-EPI)AfAm (>60 ml/min/1.73 sqM) Est GFR (CKD-EPI)NonAf (>60 ml/min/1.73 sqM) Glucose (74-99) mg/dL Plasma Lactic Acid Joshua 1.1 (0.7-2.0) mmol/L Calcium (8.4-10.2) mg/dL Magnesium (1.6-2.3) mg/dL Total Bilirubin (0.2-1.3) mg/dL AST (14-36) U/L ALT (9-52) U/L Alkaline Phosphatase (38-126) U/L Total Creatine Kinase (30-135) U/L CK-MB (CK-2) (0.0-2.4) ng/mL CK-MB (CK-2) Rel Index Troponin I (0.000-0.034) ng/mL Total Protein (6.3-8.2) g/dL Albumin (3.5-5.0) g/dL Disposition Clinical Impression: Syncope and collapse, Hypotension, Dehydration Disposition: ADMITTED IP TO THIS [facility] Condition: Stable Is patient prescribed a controlled substance at d/c from ED?: No Referrals: Vladimir Azul MD [Primary Care Provider] - 1-2 days Decision to Admit Reason: Admit from EC Decision Date: 12/19/17 Decision Time: 15:48
[2017-12-19 15:11] LABS: Basophils % (A) 0 %; Eosinophils # (A) 0.2 k/uL (0-0.7); Eosinophils % (A) 3 %; HCT 29.8 % (34.0-46.0); Hypochromasia Slight; INR 1.2 (<1.2); Lymphocytes # (A) 1.6 k/uL (1.0-4.8); Lymphocytes % (A) 27 %; MCH 26.8 pg (25.0-35.0); MCHC 31.9 g/dL (31.0-37.0); MCV 84.2 fL (80.0-100.0); Mean Platelet Volume 7.7; Monocytes # (A) 0.3 k/uL (0-1.0); Monocytes % (A) 5 %; Neutrophils # (A) 3.9 k/uL (1.3-7.7); Neutrophils % (A) 64 %; Partial Thromboplastin Time 23.4 sec (22.0-30.0); Platelet Count 220 k/uL (150-450); Prothrombin Time 11.6 sec (9.0-12.0); RBC 3.54 m/uL (3.80-5.40); RDW 14.4 % (11.5-15.5); WBC 6.1 k/uL (3.8-10.6)
[2017-12-19 15:12] LABS: HGB 9.5 gm/dL (11.4-16.0)
[2017-12-19 15:19] LABS: Creatine Kinase <20 U/L (30-135)
[2017-12-19 15:21] LABS: Calcium 9.3 mg/dL (8.4-10.2); Magnesium 1.5 mg/dL (1.6-2.3); Potassium 4.1 mmol/L (3.5-5.1); Total Bilirubin 0.3 mg/dL (0.2-1.3); Total Protein 5.2 g/dL (6.3-8.2)
--- NOTE | 2017-12-19 15:25 | XR ---
EXAMINATION TYPE: XR chest 2V DATE OF EXAM: 12/19/2017 COMPARISON: 12/17/2019 INDICATION: Weakness fall TECHNIQUE: Frontal and lateral views of the chest are obtained. FINDINGS: The heart size is normal. The pulmonary vasculature is normal. The lungs are clear. No pneumothorax is evident. No displaced fractures are evident. Pacemaker overl ies left chest. Patient post CABG IMPRESSION: 1. No acute pulmonary process.
--- NOTE | 2017-12-19 15:28 | CT ---
EXAMINATION TYPE: CT brain wo con DATE OF EXAM: 12/19/2017 COMPARISON: 11/26/2016 and 12/16/2017 HISTORY: Fall 4 days ago. Continued weakness and headache CT DLP: 1165 mGycm Automated exposure control for dose reduction was used. TECHNIQUE: CT scan of the head is performed without contrast. FINDINGS: There is no acute intracranial hemorrhage or midline shift identified. There is diffuse v entricular and sulcal prominence consistent with diffuse age-related cerebral atrophy. There is dense atherosclerosis of the intracranial vasculature. There is low-attenuation in the periventricular whi te matter consistent with chronic small vessel ischemic change. Similar-appearing slight hyperintensi ty along the tentorium cerebelli relates to calcification as this was present on the prior exam of 03/2017. The globes are intact and the visualized sinuses are clear. 8mm left frontal scalp hematom a is present. IMPRESSION: No acute intracranial process, unchanged from the prior of 12/16/2017. Again there is dif fuse age-related cerebral atrophy and chronic small vessel ischemic change noted.
[2017-12-19 15:31] LABS: Creatine Kinase MB 0.4 ng/mL (0.0-2.4); Troponin I 0.014 ng/mL (0.000-0.034)
[2017-12-19] MEDS ORDERED: MAGNESIUM SULFATE-D5W PMX 1 GM in DEXTROSE/WATER 1 100ML.BAG IVPB ONE (15:33)
[2017-12-19] MEDS ORDERED: SODIUM CHLORIDE 0.9% 500 ML IV ONE ×2 (15:33→15:44)
[2017-12-19] MEDS ORDERED: ACETAMINOPHEN TAB 325 MG TAB PO PRN (15:43)
[2017-12-19] MEDS ORDERED: NALOXONE 0.4 MG/ML 1 ML VIAL IV PRN (15:43)
[2017-12-19] MEDS: SODIUM CHLORIDE 0.9% 1,000 ML IV SCH (16:55)
[2017-12-19] MEDS ORDERED: MIDODRINE 5 MG TAB PO SCH (17:15)
[2017-12-19 17:19] LABS: Appearance,Urine Clear (Clear); Bilirubin,Urine Negative (Negative); Blood,Urine Small (Negative); Color,Urine Yellow; Glucose,Urine (UA) Trace (Negative); Hyaline Casts,Urine 5 /lpf (0-2); Ketones,Urine Negative (Negative); Leukocyte Esterase,Urine Negative (Negative); Nitrite,Urine Negative (Negative); PH, Urine 5.5 (5.0-8.0); Protein,Urine Negative (Negative); RBC,Urine 1 /hpf (0-5); Specific Gravity,Urine 1.012 (1.001-1.035); Squamous Epithelial Cell,Urine 2 /hpf (0-4); Urobilinogen,Urine <2.0 mg/dL (<2.0); WBC,Urine 1 /hpf (0-5)
[2017-12-19] MEDS ORDERED: MIDODRINE 5 MG TAB PO ONE (17:45)
--- NOTE | 2017-12-19 18:28 | P.HPIM ---
History of Present Illness H&P Date: 12/19/17 This is a 72-year-old female one of Dr. Latha Amezcua with a previous medical history significant for coronary artery disease status post coronary artery bypass graft with ischemic cardio myopathy and percutaneous coronary intervention and a total of 4 stents placement last one was put in the LAD back in November 2014, AICD placement, cardiomyopathy EF 43%, CABG with ischemic heart disease, patent HA, saphenous vein graft to RCA, 100% occluded circumflex with collaterals, recent echocardiogram revealed echo 20-25% with severe global hypokinesia, moderate MR, moderate pulmonary hypertension October 2017 echocardiogram.history of left subclavian stenosis status post stenting, carotid artery disease status post bilateral carotid endarterectomies, severe peripheral arterial occlusive disease, vasculitis , severe PAD with recent endovascular placement of aortic stent for occlusive disease of the aorta, left iliac stent, fem-fem bypass with greater saphenous vein at [facility]. [facility]ie at [facility], She presented to emergency room secondary to recurrent fallswith multiple admissions from our facility secondary to falls,the patient was at bedside and attempted to stand, while still in sitting position whe felt light headed and fell forwards hitting face towards floor. sustained bruised in periorbits, face and cheekbones, patient was noted to be hypotensive emergency room with blood pressure of 66 systolic,fluid resuscitation provided, patient denies any lumbar spinnous process pain, has history of polio in the past affecting right leg weakness, patient denies any other focal neurologic deficits in speech and vision no syncope or chestpain. Patient has chronic lower extremity resolving folliculitis scattered all throughout bilateral legs Review of Systems Constitutional: Reports as per HPI, Reports fatigue, Reports malaise, Reports weakness, Denies anorexia, Denies chills, Denies chronic headaches, Denies chronic pain, Denies daytime sleepiness, Denies fever, Denies lethargy, Denies night sweats, Denies poor appetite, Denies sweats, Denies weight gain, Denies weight loss Ears, nose, mouth and throat: Reports as per HPI, Denies ant. neck pain, Denies bleeding gums, Denies dental pain, Denies dysphagia, Denies epistaxis, Denies headache, Denies hoarseness, Denies mouth pain, Denies nasal congestion, Denies nasal discharge, Denies neck fullness/pressure, Denies neck lump, Denies nose pain, Denies odynophagia, Denies post-nasal drip, Denies sinus pain, Denies sinus pressure, Denies swelling in mouth, Denies swelling in throat, Denies sore throat, Denies vertigo, Denies voice changes Cardiovascular: Reports as per HPI, Denies chest pain, Denies claudication, Denies decreased exercise tolerance, Denies dyspnea on exertion, Denies edema, Denies high blood pressure, Denies irregular heart beat, Denies leg edema, Denies lightheadedness, Denies orthopnea, Denies palpitations, Denies paroxysmal nocturnal dyspnea, Denies phlebitis, Denies rapid heart beat, Denies shortness of breath, Denies syncope Respiratory: Reports as per HPI Gastrointestinal: Reports as per HPI, Denies abdominal pain, Denies belching, Denies bloating, Denies BRBPR, Denies change in bowel habits, Denies coffee ground emesis, Denies constipation, Denies diarrhea, Denies dyspepsia, Denies early satiety, Denies excessive gas, Denies heartburn, Denies hematemesis, Denies hematochezia, Denies indigestion, Denies jaundice, Denies lactose intolerance, Denies loss of appetite, Denies melena, Denies nausea, Denies vomiting Genitourinary: Reports as per HPI Menstruation: Reports as per HPI Musculoskeletal: Reports as per HPI Integumentary: Reports as per HPI, Denies acne, Denies boils, Denies brittle nails, Denies change in hair/nails, Denies color changes, Denies darkening of skin, Denies depigmentation, Denies dryness, Denies foot/leg ulcers, Denies growths, Denies hirsutism, Denies lesions, Denies onychomycosis, Denies pruritus , Denies rash, Denies sores, Denies striae, Denies unusual bruising, Denies wounds Neurological: Reports as per HPI, Reports gait dysfunction, Reports lack of coordination, Reports memory loss, Reports weakness, Denies aphasia, Denies ataxia, Denies balance difficulties, Denies burning pain, Denies change in mentation, Denies change in smell/taste, Denies change in speech, Denies confusion, Denies convulsions, Denies double vision, Denies head injury, Denies headaches, Denies hearing difficulties, Denies loss of vision, Denies migraines , Denies motor disturbance, Denies numbness, Denies paralysis, Denies paresthesias, Denies seizures, Denies sensory deficit, Denies spasticity, Denies syncope, Denies tic, Denies tingling, Denies transient paralysis, Denies tremors, Denies vertigo, Denies visual changes Psychiatric: Reports as per HPI, Denies anhedonia, Denies anxiety, Denies anxiety attacks, Denies change in appetite, Denies change in libido, Denies change in sleep habits, Denies confusion, Denies depression, Denies difficulty concentrating, Denies disorientation, Denies hallucinations, Denies hopelessness , Denies hypersomnia, Denies insomnia, Denies irritability, Denies memory loss, Denies mood swings, Denies paranoia, Denies sadness/tearfulness, Denies sleep disturbances, Denies suicidal ideation Endocrine: Reports as per HPI Hematologic/Lymphatic: Reports as per HPI Allergic/Immunologic: Reports as per HPI Past Medical History Past Medical History: Coronary Artery Disease (CAD), Chest Pain / Angina, Heart Failure, CVA/TIA, Diabetes Mellitus, GERD/Reflux, Hyperlipidemia, Hypertension, Myocardial Infarction (IN), Osteoarthritis (OA), Syncope Additional Past Medical History / Comment(s): HX OF POLIO, PAD, ISCHEMIC CARDIOMYOPATHY., RT CATARACTS., USES WALKER. Last Myocardial Infarction Date:: 2012 History of Any Multi-Drug Resistant Organisms: None Reported Past Surgical History: AICD, Appendectomy, Section, Cholecystectomy, Coronary Bypass/CABG, Heart Catheterization, Heart Catheterization With Stent, Hysterectomy Additional Past Surgical History / Comment(s): ABIMBOLA CAROTID ENDARTERECTOMY., OVARIAN CYST., STENT LT SUBCLAVIAN - TOTAL 4 STENTS ., [employer] AICD. , LT CATARACT REMOVED Past Anesthesia/Blood Transfusion Reactions: No Reported Reaction Date of Last Stent Placement:: 11/2014 Type of Cardiac Device: AICD Device Placement Date:: 2014 Past Psychological History: Anxiety, Depression Smoking Status: Never smoker Past Alcohol Use History: None Reported Past Drug Use History: None Reported - Past Family History Father Family Medical History: Cancer Additional Family Medical History / Comment(s): pt. states her father had throat cancer Mother Family Medical History: Coronary Artery Disease (CAD), Hyperlipidemia, Hypertension Additional Family Medical History / Comment(s): CABG Medications and Allergies Home Medications Medication Instructions Recorded Confirmed Type Clopidogrel [Plavix] 75 mg PO DAILY@89911/22/14 12/19/17 History Cholecalciferol [Vitamin D3] 2,000 unit PO DAILY@89902/02/17 12/19/17 History DULoxetine HCL [Cymbalta] 60 mg PO DAILY@89902/02/17 12/19/17 History Lansoprazole [Prevacid] 30 mg PO DAILY@89902/02/17 12/19/17 History Multivitamins, Thera [Multivitamin 1 tab PO DAILY@89906/16/17 12/19/17 History (formulary)] Ubidecarenone [Co Q-10] 400 mg PO DAILY@89906/16/17 12/19/17 History Bifidobacterium Infantis [Align] 4 mg PO DAILY@89909/18/17 12/19/17 History Isosorbide Mononitrate ER [Imdur] 60 mg PO DAILY@89909/18/17 12/19/17 History Nitroglycerin Sl Tabs [Nitrostat] 0.4 mg SUBLINGUAL Q5M PRN 09/18/17 12/19/17 History Apixaban [Eliquis] 5 mg PO BID@0900,209910/31/17 12/19/17 History Aspirin 81 mg PO DAILY@89910/31/17 12/19/17 History Atorvastatin [Lipitor] 80 mg PO HS@2100 10/31/17 12/19/17 History Calcium Carbonate 648mg 648 mg PO BID@10/31/17 12/19/17 History Dulaglutide [Trulicity] 0.75 mg SQ WE 10/31/17 12/19/17 History Fenofibrate [Lofibra] 160 mg PO DAILY@89910/31/17 12/19/17 History Gabapentin [Neurontin] 100 mg PO TID@0900,1200,1700 10/31/17 12/19/17 History INSULIN LISPRO (humaLOG) [humaLOG] 4 units SQ AC-TID@09,12,17 10/31/17 12/19/17 History INSULIN LISPRO (humaLOG) [humaLOG] See Protocol SQ ACHS 10/31/17 12/19/17 History Insulin Glargine [Lantus] 10 units SQ HS@2100 10/31/17 12/19/17 History Ketorolac 0.5% Ophth Soln [Acular 1 drops LEFT EYE BID 10/31/17 12/19/17 History 0.5%] Lifitegrast [Xiidra] 1 drop BOTH EYES BID 10/31/17 12/19/17 History Lisinopril [Zestril] 5 mg PO DAILY@0900 10/31/17 12/19/17 History traMADol HCL [Ultram] 50 mg PO Q4HR PRN #30 tablet 11/05/17 12/19/17 Rx Metoprolol Succinate (ER) [Toprol 100 mg PO DAILY #30 tab 11/06/17 12/19/17 Rx XL] Midodrine [ProAmatine] 5 mg PO TID #30 tablet 11/06/17 12/19/17 Rx Spironolactone [Aldactone] 25 mg PO DAILY #20 tablet 11/06/17 12/19/17 Rx Allergies Allergy/AdvReac Type Severity Reaction Status Date / Time adhesive Allergy Itching Verified 12/19/17 14:47 codeine Allergy Hallucinati Verified 12/19/17 14:47 ons dipyridamole Allergy heart Verified 12/19/17 14:47 [From Persantine] stopped latex AdvReac Rash/Hives Verified 12/19/17 14:47 metformin AdvReac "passed Verified 12/19/17 14:47 out" Physical Exam Vitals: Vital Signs Temp Pulse Resp BP Pulse Ox 12/19/17 15:20 69 18 87/45 97 12/19/17 14:50 68 18 82/45 99 12/19/17 14:28 98.1 F 69 18 78/37 100 Intake and Output 12/19/17 12/19/17 12/19/17 06:59 14:59 22:59 Other: Weight 56.699 kg - Constitutional General appearance: cooperative, no acute distress - EENT Eyes: anicteric sclerae, PERRLA, dentition normal, normal appearance ENT: NA/AT, normal oropharynx - Neck Neck: normal ROM - Respiratory Respiratory: bilateral: CTA, negative: diminished, dullness, rales, rhonchi - Cardiovascular Rhythm: regular Heart sounds: normal: S1, S2 Abnormal Heart Sounds: systolic murmur - Gastrointestinal General gastrointestinal: no absent bowel sounds, no decreased bowel sounds, no distended, no hepatomegaly, no hyperactive bowel sounds, normal bowel sounds, no organomegaly, no rigid, no scaphoid, soft, no splenomegaly, no tenderness, no umbilical hernia, no ventral hernia - Integumentary Integumentary: no calor, no cellulitis, no cyanotic, decreased turgor, no flushed, no jaundiced, normal, no normal turgor, no pale, rash, no ulcer - Neurologic Neurologic: CNII-XII intact - Musculoskeletal Musculoskeletal: generalized weakness, strength equal bilaterally - Psychiatric Psychiatric: A&O x's 3, appropriate affect, intact judgment & insight Results CBC & Chem 7: 12/19/17 14:48 12/19/17 14:48 Labs: Abnormal Lab Results - Last 24 Hours (Table) 12/19/17 12/19/17 12/19/17 Range/Units 14:48 14:48 14:48 RBC 3.54 L (3.80-5.40) m/uL Hgb 9.5 L D (11.4-16.0) gm/dL Hct 29.8 L (34.0-46.0) % INR (<1.2) Sodium 136 L (137-145) mmol/L Glucose 114 H (74-99) mg/dL Magnesium 1.5 L (1.6-2.3) mg/dL Alkaline Phosphatase 35 L (38-126) U/L Total Creatine Kinase <20 L (30-135) U/L Total Protein 5.2 L (6.3-8.2) g/dL Albumin 3.0 L (3.5-5.0) g/dL 12/19/17 Range/Units 14:48 RBC (3.80-5.40) m/uL Hgb (11.4-16.0) gm/dL Hct (34.0-46.0) % INR 1.2 H (<1.2) Sodium (137-145) mmol/L Glucose (74-99) mg/dL Magnesium (1.6-2.3) mg/dL Alkaline Phosphatase (38-126) U/L Total Creatine Kinase (30-135) U/L Total Protein (6.3-8.2) g/dL Albumin (3.5-5.0) g/dL Thrombosis Risk Factor Assmnt - DVT/VTE Prophylaxis DVT/VTE Prophylaxis: Pharmacologic Prophylaxis ordered, Contraindicated - See note - Choose All That Apply Each Risk Factor Represents 2 Points: Age 61-74 years Thrombosis Risk Factor Assessment Total Risk Factor Score: 2 Thrombosis Risk Factor Assessment Level: Low Risk Assessment and Plan Plan: 1. recurrent syncope, with multiple falls, and head concussion last week, multiples, bruises in the facial structures, noted to be hypotensiveon initial ER evaluation. hypovolemic shock without any ongoing GI losses, fluid resuscitation,increase Proamatene 10 mg 3 times a day,all other anihypertensives like Aldactone Imdur Zestril is on hold. 2. 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 CAD post CABGand stent placements with ischemic cardiopathy post AICD. continue risk modifications,beta blockers would be continued with parameters on holding metoprolol, lisinopril and Imdur is on hold, 4. Severe PAD post evaluation by vascular surgery status post recent endovascular placement of aortic stent for occlusive disease of the aorta, left iliac stent, and fem-fem bypass with great saphenous vein at [facility]. Continue Pletal 100 mg orally twice every day. 5. Carotid artery disease status post carotid endarterectomies. Continue with aspirin, Plavix, Lipitor for secondary prevention. 6. Ucontrolled diabetes mellitus type 2 with PVD complications, neuropathy, Lantus 10 units daily NovoLog scale with 4 units pre-meal 3 times a day, on trulicity. along with the Humalog per sliding scale. Continue BGM before each meal and bedtime. 7. Hypertension and hypertensive cardio vascular disease. lisinopril on hold secondary to hypotension, Imdur and hold, metoprolol will be held based on systolic blood pressure less than 100 8. Hyperlipidemia. Continue patient on Lipitor 80 mg orally once every day. 9. History of left subclavian stenosis. Post stenting. Stable at this time. 10. History of GERD. Continue patient on Prevacid 30 mg orally once every day. 11. Vitamin D deficiency. Continue patient on vitamin D 1000 units once every day. 12. Depression. Continue Cymbalta 60 mg orally once every day. 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 14. 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 15 History of left subclavianstenosis status post stenting 16 spinal stenosis L3-L4, L4-L5, severe R L3-L4 area with moderate severe spinal stenosis posterior disc bulging with facet arthropathy, based on CAT scan 09/20/2017physical therapy, might need consult with Dr. Crocker DVT prophylaxis. GI prophylaxis. Continue PPI. 15. Admit to inpatient. Estimated length of stay 2 midnights. 16. Patient is full code. 17. Recurrent falls, physical therapy and occupational therapy to see the patient
[2017-12-19] MEDS: APIXABAN 5 MG TAB PO SCH (20:32)
[2017-12-19] MEDS: traMADol 50 MG TAB PO PRN (20:32)
[2017-12-19] MEDS: ATORVASTATIN 80 MG TAB PO SCH (20:32)
[2017-12-19] MEDS: KETOROLAC 0.5% OPHTH DROPS 5 ML BTL LEFT EYE SCH (20:33)
[2017-12-19] MEDS: NON-FORMULARY DRUG (Lifitegrast [Xiidra] 1 DROP) BOTH EYES SCH (20:33)
[2017-12-19] MEDS: MAGNESIUM OXIDE 400 MG TAB PO SCH (20:34)
[2017-12-19] MEDS: INSULIN DETEMIR 100 UNIT/ML 10 ML VIAL SQ SCH (20:36)
[2017-12-19 20:59] LABS: Glucose,Whole Blood 281 mg/dL (75-99)
[2017-12-20] MEDS: SODIUM CHLORIDE 0.9% 1,000 ML IV SCH ×2 (02:23→10:12)
[2017-12-20] MEDS: traMADol 50 MG TAB PO PRN ×2 (04:01→10:13)
[2017-12-20 06:14] LABS: Glucose,Whole Blood 105 mg/dL (75-99)
[2017-12-20 07:03] LABS: HCT 28.7 % (34.0-46.0); HGB 9.3 gm/dL (11.4-16.0); Hypochromasia Moderate; MCH 27.7 pg (25.0-35.0); MCHC 32.4 g/dL (31.0-37.0); MCV 85.6 fL (80.0-100.0); Mean Platelet Volume 7.3; Platelet Count 196 k/uL (150-450); RBC 3.35 m/uL (3.80-5.40); RDW 14.4 % (11.5-15.5); WBC 4.6 k/uL (3.8-10.6)
[2017-12-20 07:04] LABS: Anion Gap 4 mmol/L; Blood Urea Nitrogen 12 mg/dL (7-17); Calcium 8.7 mg/dL (8.4-10.2); Carbon Dioxide 27 mmol/L (22-30); Chloride 107 mmol/L (98-107); Glucose 115 mg/dL (74-99); Magnesium 1.6 mg/dL (1.6-2.3); Potassium 4.2 mmol/L (3.5-5.1); Sodium 138 mmol/L (137-145)
[2017-12-20] MEDS: MIDODRINE 5 MG TAB PO SCH ×3 (09:26→17:35)
[2017-12-20] MEDS: ASPIRIN 81 MG PO SCH (09:27)
[2017-12-20] MEDS: BIFIDOBACTERIUM INFANTIS 4 MG PO SCH (09:27)
[2017-12-20] MEDS: APIXABAN 5 MG TAB PO SCH ×2 (09:27→21:41)
[2017-12-20] MEDS: CHOLECALCIFEROL 1,000 UNIT TAB PO SCH (09:27)
[2017-12-20] MEDS: FENOFIBRATE 160 MG TAB PO SCH (09:28)
[2017-12-20] MEDS: DULoxetine HCL 60 MG CAPSULE.DR PO SCH (09:28)
[2017-12-20] MEDS: GABAPENTIN 100 MG CAP PO SCH ×2 (09:28→13:41)
[2017-12-20] MEDS: CLOPIDOGREL 75 MG TAB PO SCH (09:28)
[2017-12-20] MEDS: MULTIVITAMINS, THERA 1 EACH TAB PO SCH (09:29)
[2017-12-20] MEDS: KETOROLAC 0.5% OPHTH DROPS 5 ML BTL LEFT EYE SCH ×2 (09:29→20:17)
[2017-12-20] MEDS: MAGNESIUM OXIDE 400 MG TAB PO SCH ×2 (09:29→20:17)
[2017-12-20] MEDS: PANTOPRAZOLE 40 MG TABLET PO SCH (09:29)
[2017-12-20] MEDS: INSULIN ASPART 100 UNIT/ML 1 ML 10 ML VIAL SQ SCH ×3 (09:37→17:35)
[2017-12-20] MEDS: NON-FORMULARY DRUG (Lifitegrast [Xiidra] 1 DROP) BOTH EYES SCH ×2 (09:39→21:43)
--- NOTE | 2017-12-20 10:04 | P.CRDCN ---
History of Present Illness Consult date: 12/20/17 Requesting physician: Audra Mcginnis Consult reason: sycope Chief complaint: Dizziness and lightheadedness History of present illness: This is a 72-year-old female who follows regularly with Dr. Brady in the office. She has a known history of coronary artery disease with prior bypass surgery, ischemic cardio myopathy with prior AICD, prior stent placements , severe PAD with prior endovascular aortic stenting, prior fem-fem and iliac stenting, hypertension, diabetes, hyperlipidemia, prior subclavian stenting, history of falls, she presented to the hospital following a near syncopal episode. According to the patient, she was sitting on the side of her bed became extremely dizzy and lightheaded, the next thing she recalls is falling forward and hitting her face. According to the patient she does not think that she lost complete consciousness. Patient has been experiencing symptoms of dizziness and lightheadedness and states that approximately a month ago medication adjustments have been made in the office by Dr. Brady because her blood pressure was noted to be significantly low. That scan of the brain was performed on arrival here which did not reveal any acute intracranial process. Chest x-ray did not reveal any acute pulmonary process. EKG on arrival here showed a normal sinus rhythm with nonspecific ST-T wave changes in the anterolateral leads. Blood pressure on arrival here 78/30, heart rate in the 60s, 100% on room air. The pressure this morning 112/50 with a heart rate in the 80s, 100% on room air. The patient's home medications include Ultram, co- every 10, ductal and 25 mg daily, multivitamin, Toprol 100 mg daily, Zestril 5 mg daily, Imdur 60 mg daily, insulin, Plavix 75 mg daily, Lipitor 80 mg daily, baby aspirin 81 mg daily, Eliquis 5 mg twice a day. At the time of my examination this morning, patient denies any dizziness or lightheadedness. She did incur significant ecchymosis to her facial area, there is also a hematoma on the forehead noted. Past Medical History Past Medical History: Coronary Artery Disease (CAD), Chest Pain / Angina, Heart Failure, CVA/TIA, Diabetes Mellitus, GERD/Reflux, Hyperlipidemia, Hypertension, Myocardial Infarction ([place]), Osteoarthritis (OA), Syncope Additional Past Medical History / Comment(s): HX OF POLIO, PAD, ISCHEMIC CARDIOMYOPATHY., RT CATARACTS., USES WALKER. Last Myocardial Infarction Date:: 2012 History of Any Multi-Drug Resistant Organisms: None Reported Past Surgical History: AICD, Appendectomy, Section, Cholecystectomy, Coronary Bypass/CABG, Heart Catheterization, Heart Catheterization With Stent, Hysterectomy Additional Past Surgical History / Comment(s): ABIMBOLA CAROTID ENDARTERECTOMY., OVARIAN CYST., STENT LT SUBCLAVIAN - TOTAL 4 STENTS ., [employer] AICD. , LT CATARACT REMOVED Past Anesthesia/Blood Transfusion Reactions: No Reported Reaction Date of Last Stent Placement:: 11/2014 Type of Cardiac Device: AICD Device Placement Date:: 2014 Past Psychological History: Anxiety, Depression Smoking Status: Never smoker Past Alcohol Use History: None Reported Past Drug Use History: None Reported - Past Family History Father Family Medical History: Cancer Additional Family Medical History / Comment(s): pt. states her father had throat cancer Mother Family Medical History: Coronary Artery Disease (CAD), Hyperlipidemia, Hypertension Additional Family Medical History / Comment(s): CABG Medications and Allergies Home Medications Medication Instructions Recorded Confirmed Type Clopidogrel [Plavix] 75 mg PO DAILY@89911/22/14 12/19/17 History Cholecalciferol [Vitamin D3] 2,000 unit PO DAILY@89902/02/17 12/19/17 History DULoxetine HCL [Cymbalta] 60 mg PO DAILY@89902/02/17 12/19/17 History Lansoprazole [Prevacid] 30 mg PO DAILY@89902/02/17 12/19/17 History Multivitamins, Thera [Multivitamin 1 tab PO DAILY@89906/16/17 12/19/17 History (formulary)] Ubidecarenone [Co Q-10] 400 mg PO DAILY@89906/16/17 12/19/17 History Bifidobacterium Infantis [Align] 4 mg PO DAILY@89909/18/17 12/19/17 History Isosorbide Mononitrate ER [Imdur] 60 mg PO DAILY@89909/18/17 12/19/17 History Nitroglycerin Sl Tabs [Nitrostat] 0.4 mg SUBLINGUAL Q5M PRN 09/18/17 12/19/17 History Apixaban [Eliquis] 5 mg PO BID@0900,2100 06/15/18 08/03/18 History Aspirin 81 mg PO DAILY@0900 10/31/17 12/19/17 History Atorvastatin [Lipitor] 80 mg PO HS@209910/31/17 12/19/17 History Calcium Carbonate 648mg 648 mg PO BID@,21 10/31/17 12/19/17 History Dulaglutide [Trulicity] 0.75 mg SQ WE 10/31/17 12/19/17 History Fenofibrate [Lofibra] 160 mg PO DAILY@0900 10/31/17 12/19/17 History Gabapentin [Neurontin] 100 mg PO TID@0900,1200,1700 10/31/17 12/19/17 History INSULIN LISPRO (humaLOG) [humaLOG] 4 units SQ AC-TID@,12,17 10/31/17 12/19/17 History INSULIN LISPRO (humaLOG) [humaLOG] See Protocol SQ ACHS 10/31/17 12/19/17 History Insulin Glargine [Lantus] 10 units SQ HS@209910/31/17 12/19/17 History Ketorolac 0.5% Ophth Soln [Acular 1 drops LEFT EYE BID 10/31/17 12/19/17 History 0.5%] Lifitegrast [Xiidra] 1 drop BOTH EYES BID 10/31/17 12/19/17 History Lisinopril [Zestril] 5 mg PO DAILY@0900 10/31/17 12/19/17 History traMADol HCL [Ultram] 50 mg PO Q4HR PRN #30 tablet 11/05/17 12/19/17 Rx Metoprolol Succinate (ER) [Toprol 100 mg PO DAILY #30 tab 11/06/17 12/19/17 Rx XL] Midodrine [ProAmatine] 5 mg PO TID #30 tablet 11/06/17 12/19/17 Rx Spironolactone [Aldactone] 25 mg PO DAILY #20 tablet 11/06/17 12/19/17 Rx Allergies Allergy/AdvReac Type Severity Reaction Status Date / Time adhesive Allergy Itching Verified 12/19/17 14:47 codeine Allergy Hallucinati Verified 12/19/17 14:47 ons dipyridamole Allergy heart Verified 12/19/17 14:47 [From Persantine] stopped latex AdvReac Rash/Hives Verified 12/19/17 14:47 metformin AdvReac "passed Verified 12/19/17 14:47 out" Physical Exam Vitals: Vital Signs Temp Pulse Pulse Resp BP BP BP 12/20/17 08:00 97.1 F L 83 18 112/52 12/20/17 04:00 99.0 F 84 18 122/61 12/20/17 02:00 94/48 12/20/17 00:30 90/45 12/20/17 00:00 98.8 F 84 18 90/39 12/19/17 20:00 98.6 F 89 18 102/51 12/19/17 18:18 97.5 F L 85 16 125/61 12/19/17 17:33 98.1 F 86 16 96/57 12/19/17 16:55 85 18 90/55 12/19/17 15:20 69 18 87/45 12/19/17 14:50 68 18 82/45 12/19/17 14:28 98.1 F 69 18 78/37 Pulse Ox 12/20/17 08:00 100 12/20/17 04:00 99 12/20/17 02:00 12/20/17 00:30 12/20/17 00:00 97 12/19/17 20:00 98 12/19/17 18:18 98 12/19/17 17:33 100 12/19/17 16:55 100 12/19/17 15:20 97 12/19/17 14:50 99 12/19/17 14:28 100 Intake and Output 12/19/17 12/20/17 12/20/17 22:59 06:59 14:59 Intake Total 700 360 Balance 700 360 Intake: IV 700 Sodium Chloride 0.9% 1, 700 000 ml @ 100 mls/hr IV . Q10H [facility] Rx#:[id number] Oral 360 Other: Voiding Method Toilet Weight 60.1 kg PHYSICAL EXAMINATION: GENERAL: 72-year-old female in no acute distress at the time of my examination HEENT: Head is atraumatic, normocephalic. Significant facial ecchymosis noted, hematoma to the forehead, Pupils equal, round. Sclera anicteric. Conjunctiva are clear. Mucous membranes of the mouth are moist. Neck is supple. There is no elevated jugular venous pressure. No carotid bruit is heard. HEART EXAMINATION: Heart S1, S2 normal. No murmur or gallop heard. CHEST EXAMINATION: Lungs are clear to auscultation and precussion. No chest wall tenderness is noted on palpation or with deep breathing. ABDOMEN: Soft, nontender. Bowel sounds are heard. No organomegaly noted. EXTREMITIES: 2+ peripheral pulses with no evidence of peripheral edema and no calf tenderness noted. NEUROLOGIC patient is awake, alert and orientedX3. . Results 12/20/17 06:30 12/20/17 06:30 Cardiac Enzymes 12/19/17 12/19/17 Range/Units 14:48 14:48 AST 25 (14-36) U/L CK-MB (CK-2) 0.4 (0.0-2.4) ng/mL Troponin I 0.014 (0.000-0.034) ng/mL Coagulation 12/19/17 Range/Units 14:48 PT 11.6 (9.0-12.0) sec APTT 23.4 (22.0-30.0) sec CBC 12/19/17 12/20/17 Range/Units 14:48 06:30 WBC 6.1 4.6 (3.8-10.6) k/uL RBC 3.54 L 3.35 L (3.80-5.40) m/uL Hgb 9.5 L D 9.3 L (11.4-16.0) gm/dL Hct 29.8 L 28.7 L (34.0-46.0) % Plt Count 220 196 (150-450) k/uL Comprehensive Metabolic Panel 12/19/17 12/20/17 Range/Units 14:48 06:30 Sodium 136 L 138 (137-145) mmol/L Potassium 4.1 4.2 (3.5-5.1) mmol/L Chloride 104 107 (98-107) mmol/L Carbon Dioxide 26 27 (22-30) mmol/L BUN 15 12 (7-17) mg/dL Creatinine 0.80 0.75 (0.52-1.04) mg/dL Glucose 114 H 115 H (74-99) mg/dL Calcium 9.3 8.7 (8.4-10.2) mg/dL AST 25 (14-36) U/L ALT 30 (9-52) U/L Alkaline Phosphatase 35 L (38-126) U/L Total Protein 5.2 L (6.3-8.2) g/dL Albumin 3.0 L (3.5-5.0) g/dL Current Medications Generic Name Dose Route Start Last Admin Trade Name Freq PRN Reason Stop Dose Admin Acetaminophen 650 mg 12/19/17 15:43 Tylenol Tab PO Q6HR PRN Mild Pain or Fever > 100.5 Apixaban 5 mg 12/19/17 21:00 12/20/17 09:27 Eliquis PO 5 mg BID@0900,2100 NOE Administration Aspirin 81 mg 12/20/17 09:00 12/20/17 09:27 Aspirin PO 81 mg DAILY@0900 NOE Administration Atorvastatin Calcium 80 mg 12/19/17 21:00 12/19/17 20:32 Lipitor PO 80 mg HS@2100 NOE Administration Cholecalciferol 2,000 unit 12/20/17 09:00 12/20/17 09:27 Vitamin D3 PO 2,000 unit DAILY@0900 NOE Administration Clopidogrel Bisulfate 75 mg 12/20/17 09:00 12/20/17 09:28 Plavix PO 75 mg DAILY@0900 NOE Administration Duloxetine HCl 60 mg 12/20/17 09:00 12/20/17 09:28 Cymbalta PO 60 mg DAILY@0900 NOE Administration Fenofibrate 160 mg 12/20/17 09:00 12/20/17 09:28 Lofibra PO 160 mg DAILY@0900 NOE Administration Gabapentin 100 mg 12/20/17 09:00 12/20/17 09:28 Neurontin PO 100 mg TID@0900,1200,1700 NOE Administration Sodium Chloride 1,000 mls @ 100 mls/hr 12/19/17 15:45 12/20/17 02:23 Saline 0.9% IV 100 mls/hr .Q10H NOE Administration Insulin Aspart 4 unit 12/20/17 09:00 12/20/17 09:37 Novolog SQ 4 unit AC-TID@,,17 NOE Administration Insulin Detemir 10 unit 12/19/17 21:00 12/19/17 20:36 Levemir SQ 10 unit HS@2100 NOE Administration Ketorolac Tromethamine 1 drops 12/19/17 21:00 12/20/17 09:29 Acular LEFT EYE 1 drops BID [facility] Administration Magnesium Oxide 400 mg 12/19/17 21:00 12/20/17 09:29 Mag-Ox PO 400 mg BID@09,21 NOE Administration Midodrine 10 mg 12/20/17 08:00 12/20/17 09:26 Proamatine PO 10 mg TID@0800,1300,1700 [facility] Administration Multivitamins 1 each 12/20/17 09:00 12/20/17 09:29 Theragran PO 1 each DAILY@0900 [facility] Administration Naloxone HCl 0.2 mg 12/19/17 15:43 Narcan IV Q2M PRN Opioid Reversal Non-Formulary Medication 4 mg 12/20/17 09:00 12/20/17 09:27 Bifidobacterium Infantis [Align] PO Not Given DAILY@0900 [facility] Non-Formulary Medication 0.75 mg 12/24/17 17:12 Dulaglutide [Trulicity] SQ WE [facility] Non-Formulary Medication 1 drop 12/19/17 21:00 12/20/17 09:39 Lifitegrast [Xiidra] BOTH EYES Not Given BID [facility] Pantoprazole Sodium 40 mg 12/20/17 09:00 12/20/17 09:29 Protonix PO 40 mg DAILY@0900 [facility] Administration Tramadol HCl 50 mg 12/19/17 17:12 12/20/17 04:01 Ultram PO 50 mg Q4HR PRN Administration Pain Intake and Output 12/19/17 12/20/17 12/20/17 22:59 06:59 14:59 Intake Total 700 360 Balance 700 360 Intake: IV 700 Sodium Chloride 0.9% 1, 700 000 ml @ 100 mls/hr IV . Q10H [facility] Rx#:[id number] Oral 360 Other: Voiding Method Toilet Weight 60.1 kg 12/20/17 06:30 12/20/17 06:30 EKG Interpretations (text) EKG shows normal sinus rhythm with nonspecific ST-T wave changes in the anterolateral leads. Assessment and Plan Plan: Assessment and plan #1 symptoms of dizziness and lightheadedness with fall. No clear-cut syncope. Patient was hypotensive on admission with a blood pressure of 78/30. EKG showed normal sinus rhythm with nonspecific ST-T wave changes. #2 known history of coronary artery disease with prior bypass surgery and stent placements #3 diabetes #4 ischemic cardiomyopathy with prior AICD #5 hypertension history #6 hyperlipidemia #7 PAD and PPD, prior left Subclavian stenting, history of aortofemoral bypass #8 hypotension 9 chronic anemia Plan Patient had an echocardiogram with Doppler study performed in October which revealed an ejection fraction of 20-25%, moderate mitral regurgitation noted. Blood pressure on admission was noted to be quite low, patient did recently see Dr. Brady in the office in November, he stopped her midodrine at that time, and recommended if patient became hypotensive to reduce her dose of Imdur. Midodrine here was resumed by the primary care doctor. Imdur is currently on hold. Patient did receive significant IV fluid boluses and continues to be on 100 and hour, we will reduce the IV fluids to KVO this morning as the patient has known cardiomyopathy. We will also check the AICD. Continue to monitor blood pressures, check orthostatics. Further recommendations to follow. DNP note has been reviewed, I agree with a documented findings and plan of care. Patient was seen and examined.
[2017-12-20 12:08] LABS: Glucose,Whole Blood 150 mg/dL (75-99)
--- NOTE | 2017-12-20 12:58 | P.PN ---
Subjective Progress Note Date: 12/20/17 This is a 72-year-old female one of Dr. Latha Amezcua with a previous medical history significant for coronary artery disease status post coronary artery bypass graft with ischemic cardio myopathy and percutaneous coronary intervention and a total of 4 stents placement last one was put in the LAD back in November 2014, AICD placement, cardiomyopathy EF 43%, CABG with ischemic heart disease, patent HA, saphenous vein graft to RCA, 100% occluded circumflex with collaterals, recent echocardiogram revealed echo 20-25% with severe global hypokinesia, moderate MR, moderate pulmonary hypertension October 2017 echocardiogram.history of left subclavian stenosis status post stenting, carotid artery disease status post bilateral carotid endarterectomies, severe peripheral arterial occlusive disease, vasculitis , severe PAD with recent endovascular placement of aortic stent for occlusive disease of the aorta, left iliac stent, fem-fem bypass with greater saphenous vein at [facility]. [facility] at [facility], She presented to emergency room secondary to recurrent fallswith multiple admissions from our facility secondary to falls,the patient was at bedside and attempted to stand, while still in sitting position whe felt light headed and fell forwards hitting face towards floor. sustained bruised in periorbits, face and cheekbones, patient was noted to be hypotensive emergency room with blood pressure of 66 systolic,fluid resuscitation provided, patient denies any lumbar spinnous process pain, has history of polio in the past affecting right leg weakness, patient denies any other focal neurologic deficits in speech and vision no syncope or chestpain. 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 Is able to comprehend and answers all questions appropriately. Vital signs obtained this morning appears to be better than yesterday with negative orthostatics. We'll hold diuretics and blood pressure medication for now. Hold IV fluid as patient has cardiomyopathy with the EF last reported with 20-25%. Patient denies any further episode of dizziness or lightheadedness. Did complain of some on and off chest pain this morning for which nitro initiated. Objective - Vital Signs Vital signs: Vital Signs Temp 97.6 F 12/20/17 11:54 Pulse 70 12/20/17 11:54 Resp 18 12/20/17 11:54 BP 107/51 12/20/17 11:54 Pulse Ox 97 08/04/18 11:54 Intake & Output 12/19/17 12/20/17 12/20/17 18:59 06:59 18:59 Intake Total 700 1160 Balance 700 1160 Weight 56.699 kg 60.1 kg Intake: IV 700 800 Sodium Chloride 0.9% 1, 700 800 000 ml @ 20 mls/hr IV . Q24H [facility] Rx#:[id number] Oral 360 Other: Voiding Method Toilet # Voids 3 - Exam - Constitutional General appearance: cooperative, no acute distress - EENT Eyes: anicteric sclerae, PERRLA, dentition normal, normal appearance ENT: NA/AT, normal oropharynx - Neck Neck: normal ROM - Respiratory Respiratory: bilateral: CTA, negative: diminished, dullness, rales, rhonchi - Cardiovascular Rhythm: regular Heart sounds: normal: S1, S2 Abnormal Heart Sounds: systolic murmur - Gastrointestinal General gastrointestinal: no absent bowel sounds, no decreased bowel sounds, no distended, no hepatomegaly, no hyperactive bowel sounds, normal bowel sounds, no organomegaly, no rigid, no scaphoid, soft, no splenomegaly, no tenderness, no umbilical hernia, no ventral hernia - Integumentary Integumentary: Significant. Periorbital ecchymosis with a current ecchymosis involving the 4 head and the cheeks. With bumps over the forehead no bleeding Neurologic Neurologic: CNII-XII intact - Musculoskeletal Musculoskeletal: generalized weakness, strength equal bilaterally - Psychiatric Psychiatric: A&O x's 3, appropriate affect, intact judgment & insight - Labs CBC & Chem 7: 12/20/17 06:30 12/20/17 06:30 Labs: Abnormal Lab Results - Last 24 Hours (Table) 12/19/17 12/19/17 12/19/17 Range/Units 14:48 14:48 14:48 RBC 3.54 L (3.80-5.40) m/uL Hgb 9.5 L D (11.4-16.0) gm/dL Hct 29.8 L (34.0-46.0) % INR (<1.2) Sodium 136 L (137-145) mmol/L Glucose 114 H (74-99) mg/dL POC Glucose (mg/dL) (75-99) mg/dL Magnesium 1.5 L (1.6-2.3) mg/dL Alkaline Phosphatase 35 L (38-126) U/L Total Creatine Kinase <20 L (30-135) U/L Total Protein 5.2 L (6.3-8.2) g/dL Albumin 3.0 L (3.5-5.0) g/dL Urine Glucose (UA) (Negative) Urine Blood (Negative) Hyaline Casts (0-2) /lpf 12/19/17 12/19/17 12/19/17 Range/Units 14:48 16:54 20:57 RBC (3.80-5.40) m/uL Hgb (11.4-16.0) gm/dL Hct (34.0-46.0) % INR 1.2 H (<1.2) Sodium (137-145) mmol/L Glucose (74-99) mg/dL POC Glucose (mg/dL) 281 H (75-99) mg/dL Magnesium (1.6-2.3) mg/dL Alkaline Phosphatase (38-126) U/L Total Creatine Kinase (30-135) U/L Total Protein (6.3-8.2) g/dL Albumin (3.5-5.0) g/dL Urine Glucose (UA) Trace H (Negative) Urine Blood Small H (Negative) Hyaline Casts 5 H (0-2) /lpf 12/20/17 12/20/17 12/20/17 Range/Units 06:12 06:30 06:30 RBC 3.35 L (3.80-5.40) m/uL Hgb 9.3 L (11.4-16.0) gm/dL Hct 28.7 L (34.0-46.0) % INR (<1.2) Sodium (137-145) mmol/L Glucose 115 H (74-99) mg/dL POC Glucose (mg/dL) 105 H (75-99) mg/dL Magnesium (1.6-2.3) mg/dL Alkaline Phosphatase (38-126) U/L Total Creatine Kinase (30-135) U/L Total Protein (6.3-8.2) g/dL Albumin (3.5-5.0) g/dL Urine Glucose (UA) (Negative) Urine Blood (Negative) Hyaline Casts (0-2) /lpf 12/20/17 Range/Units 12:07 RBC (3.80-5.40) m/uL Hgb (11.4-16.0) gm/dL Hct (34.0-46.0) % INR (<1.2) Sodium (137-145) mmol/L Glucose (74-99) mg/dL POC Glucose (mg/dL) 150 H (75-99) mg/dL Magnesium (1.6-2.3) mg/dL Alkaline Phosphatase (38-126) U/L Total Creatine Kinase (30-135) U/L Total Protein (6.3-8.2) g/dL Albumin (3.5-5.0) g/dL Urine Glucose (UA) (Negative) Urine Blood (Negative) Hyaline Casts (0-2) /lpf Assessment and Plan Plan: 1. recurrent syncope, with multiple falls, and head concussion last week, multiples, bruises in the facial structures, noted to be hypotensiveon initial ER evaluation. hypovolemic shock without any ongoing GI losses, ejection fraction in the past reported to be 20-25%. Repeat echocardiogram orthostatic negative this morning hold fluid resuscitation, continue midodrine 10 mg 3 times a day,all other anihypertensives like Aldactone Imdur Zestril is on hold. 2. 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 CAD post CABGand stent placements with ischemic cardiopathy post AICD. continue risk modifications,beta blockers would be continued with parameters on holding metoprolol, lisinopril and Imdur is on hold, 4. Severe PAD post evaluation by vascular surgery status post recent endovascular placement of aortic stent for occlusive disease of the aorta, left iliac stent, and fem-fem bypass with great saphenous vein at [facility]. Continue Pletal 100 mg orally twice every day. 5. Carotid artery disease status post carotid endarterectomies. Continue with aspirin, Plavix, Lipitor for secondary prevention. 6. Ucontrolled diabetes mellitus type 2 with PVD complications, neuropathy, Lantus 10 units daily NovoLog scale with 4 units pre-meal 3 times a day, on trulicity. along with the Humalog per sliding scale. Continue BGM before each meal and bedtime. 7. Hypertension and hypertensive cardio vascular disease. lisinopril on hold secondary to hypotension, Imdur and hold, metoprolol will be held based on systolic blood pressure less than 100 8. Hyperlipidemia. Continue patient on Lipitor 80 mg orally once every day. 9. History of left subclavian stenosis. Post stenting. Stable at this time. 10. History of GERD. Continue patient on Prevacid 30 mg orally once every day. 11. Vitamin D deficiency. Continue patient on vitamin D 1000 units once every day. 12. Depression. Continue Cymbalta 60 mg orally once every day. 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 14. 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 15 History of left subclavianstenosis status post stenting 16 spinal stenosis L3-L4, L4-L5, severe R L3-L4 area with moderate severe spinal stenosis posterior disc bulging with facet arthropathy, based on CAT scan 09/20/2017physical therapy, might need consult with Dr. Crocker DVT prophylaxis. GI prophylaxis. Continue PPI.
[2017-12-20 17:28] LABS: Glucose,Whole Blood 91 mg/dL (75-99)
[2017-12-20] MEDS: ATORVASTATIN 80 MG TAB PO SCH (20:17)
[2017-12-20 21:14] LABS: Glucose,Whole Blood 83 mg/dL (75-99)
[2017-12-20] MEDS: INSULIN DETEMIR 100 UNIT/ML 10 ML VIAL SQ SCH (21:41)
[2017-12-21 06:25] LABS: Glucose,Whole Blood 112 mg/dL (75-99)
[2017-12-21] MEDS: APIXABAN 5 MG TAB PO SCH ×2 (09:45→20:46)
[2017-12-21] MEDS: MIDODRINE 5 MG TAB PO SCH ×3 (09:45→17:21)
[2017-12-21] MEDS: CHOLECALCIFEROL 1,000 UNIT TAB PO SCH (09:46)
[2017-12-21] MEDS: BIFIDOBACTERIUM INFANTIS 4 MG PO SCH (09:46)
[2017-12-21] MEDS: DULoxetine HCL 60 MG CAPSULE.DR PO SCH (09:46)
[2017-12-21] MEDS: ASPIRIN 81 MG PO SCH (09:46)
[2017-12-21] MEDS: FENOFIBRATE 160 MG TAB PO SCH (09:46)
[2017-12-21] MEDS: CLOPIDOGREL 75 MG TAB PO SCH (09:46)
[2017-12-21] MEDS: PANTOPRAZOLE 40 MG TABLET PO SCH (09:47)
[2017-12-21] MEDS: KETOROLAC 0.5% OPHTH DROPS 5 ML BTL LEFT EYE SCH ×2 (09:47→20:46)
[2017-12-21] MEDS: MAGNESIUM OXIDE 400 MG TAB PO SCH ×2 (09:47→20:46)
[2017-12-21] MEDS: NON-FORMULARY DRUG (Lifitegrast [Xiidra] 1 DROP) BOTH EYES SCH ×2 (09:47→22:42)
[2017-12-21] MEDS: MULTIVITAMINS, THERA 1 EACH TAB PO SCH (09:47)
[2017-12-21] MEDS: INSULIN ASPART 100 UNIT/ML 1 ML 10 ML VIAL SQ SCH ×3 (09:52→17:22)
[2017-12-21 12:06] LABS: Glucose,Whole Blood 132 mg/dL (75-99)
--- NOTE | 2017-12-21 12:47 | P.PN ---
Subjective Progress Note Date: 12/21/17 This is a 72-year-old female one of Dr. Latha Amezcua with a previous medical history significant for coronary artery disease status post coronary artery bypass graft with ischemic cardio myopathy and percutaneous coronary intervention and a total of 4 stents placement last one was put in the LAD back in November 2014, AICD placement, cardiomyopathy EF 43%, CABG with ischemic heart disease, patent HA, saphenous vein graft to RCA, 100% occluded circumflex with collaterals, recent echocardiogram revealed echo 20-25% with severe global hypokinesia, moderate MR, moderate pulmonary hypertension October 2017 echocardiogram.history of left subclavian stenosis status post stenting, carotid artery disease status post bilateral carotid endarterectomies, severe peripheral arterial occlusive disease, vasculitis , severe PAD with recent endovascular placement of aortic stent for occlusive disease of the aorta, left iliac stent, fem-fem bypass with greater saphenous vein at [facility]. Goldie at [facility], She presented to emergency room secondary to recurrent fallswith multiple admissions from our facility secondary to falls,the patient was at bedside and attempted to stand, while still in sitting position whe felt light headed and fell forwards hitting face towards floor. sustained bruised in periorbits, face and cheekbones, patient was noted to be hypotensive emergency room with blood pressure of 66 systolic,fluid resuscitation provided, patient denies any lumbar spinnous process pain, has history of polio in the past affecting right leg weakness, patient denies any other focal neurologic deficits in speech and vision no syncope or chestpain. Patient has chronic lower extremity resolving folliculitis scattered all throughout bilateral legs 12/20 Patient examined bedside. Is able to comprehend and answers all questions appropriately. Vital signs obtained this morning appears to be better than yesterday with negative orthostatics. We'll hold diuretics and blood pressure medication for now. Hold IV fluid as patient has cardiomyopathy with the EF last reported with 20-25%. Patient denies any further episode of dizziness or lightheadedness. Did complain of some on and off chest pain this morning for which nitro initiated. 12/21 Patient examined bedside. Is able to answer all the questions. Feels better does not have any dizziness since yesterday. No episodes of falls. Blood pressure is staying between systolic 1:30 to 160. Metoprolol initiated at 25 mg today. Continue to hold Imdur. Patient denies any chest pain or breathing difficulty. She does have some subtle throbbing pain in her toes from the peripheral vascular disease and is following with Dr. Amezcua Objective - Vital Signs Vital signs: Vital Signs Temp 96.1 F L 12/21/17 12:00 Pulse 84 12/21/17 12:00 Resp 18 12/21/17 12:00 BP 168/70 12/21/17 12:00 Pulse Ox 100 12/21/17 12:00 Intake & Output 12/20/17 12/21/17 12/21/17 18:59 06:59 18:59 Intake Total 1400 240 Balance 1400 240 Weight 60.4 kg Intake: IV 800 Sodium Chloride 0.9% 1, 800 000 ml @ 20 mls/hr IV . Q24H NOE Rx#:[id number] Oral 600 240 Other: Voiding Method Toilet Toilet Toilet # Voids 1 1 - Exam - Constitutional General appearance: cooperative, no acute distress - EENT Eyes: anicteric sclerae, PERRLA, dentition normal, normal appearance ENT: NA/AT, normal oropharynx - Neck Neck: normal ROM - Respiratory Respiratory: bilateral: CTA, negative: diminished, dullness, rales, rhonchi - Cardiovascular Rhythm: regular Heart sounds: normal: S1, S2 Abnormal Heart Sounds: systolic murmur - Gastrointestinal General gastrointestinal: no absent bowel sounds, no decreased bowel sounds, no distended, no hepatomegaly, no hyperactive bowel sounds, normal bowel sounds, no organomegaly, no rigid, no scaphoid, soft, no splenomegaly, no tenderness, no umbilical hernia, no ventral hernia - Integumentary Integumentary: Significant. Periorbital ecchymosis with a current ecchymosis involving the 4 head and the cheeks. With bumps over the forehead no bleeding Neurologic Neurologic: CNII-XII intact - Musculoskeletal Musculoskeletal: generalized weakness, strength equal bilaterally - Psychiatric Psychiatric: A&O x's 3, appropriate affect, intact judgment & insight - Labs CBC & Chem 7: 12/20/17 06:30 12/20/17 06:30 Labs: Abnormal Lab Results - Last 24 Hours (Table) 12/21/17 12/21/17 Range/Units 06:24 12:00 POC Glucose (mg/dL) 112 H 132 H (75-99) mg/dL Assessment and Plan Plan: 1. recurrent syncope, with multiple falls, and head concussion last week, multiples, bruises in the facial structures, noted to be hypotensiveon initial ER evaluation. hypovolemic shock without any ongoing GI losses, ejection fraction in the past reported to be 20-25%. Repeat echocardiogram orthostatic negative this morning hold fluid resuscitation, continue midodrine 10 mg 3 times a day,all other anihypertensives like Aldactone Imdur Zestril is on hold. 2. 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 CAD post CABGand stent placements with ischemic cardiopathy post AICD. continue risk modifications,beta blockers would be continued with parameters on holding lisinopril and Imdur is on hold. metoprolol initiated at 25 mg po daily 4. Severe PAD post evaluation by vascular surgery status post recent endovascular placement of aortic stent for occlusive disease of the aorta, left iliac stent, and fem-fem bypass with great saphenous vein at [facility]. Continue Pletal 100 mg orally twice every day. 5. Carotid artery disease status post carotid endarterectomies. Continue with aspirin, Plavix, Lipitor for secondary prevention. 6. Ucontrolled diabetes mellitus type 2 with PVD complications, neuropathy, Lantus 10 units daily NovoLog scale with 4 units pre-meal 3 times a day, on trulicity. along with the Humalog per sliding scale. Continue BGM before each meal and bedtime. 7. Hypertension and hypertensive cardio vascular disease. lisinopril on hold secondary to hypotension, Imdur and hold, metoprolol will be held based on systolic blood pressure less than 100 8. Hyperlipidemia. Continue patient on Lipitor 80 mg orally once every day. 9. History of left subclavian stenosis. Post stenting. Stable at this time. 10. History of GERD. Continue patient on Prevacid 30 mg orally once every day. 11. Vitamin D deficiency. Continue patient on vitamin D 1000 units once every day. 12. Depression. Continue Cymbalta 60 mg orally once every day. 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 14. 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 15 History of left subclavianstenosis status post stenting 16 spinal stenosis L3-L4, L4-L5, severe R L3-L4 area with moderate severe spinal stenosis posterior disc bulging with facet arthropathy, based on CAT scan 09/20/2017physical therapy, might need consult with Dr. Crocker DVT prophylaxis. GI prophylaxis. Continue PPI. Discharge plan likely tomorrow based on patient's blood pressure status
[2017-12-21] MEDS: traMADol 50 MG TAB PO PRN ×2 (13:03→20:53)
[2017-12-21] MEDS: METOPROLOL SUCCINATE (ER) 25 MG TAB.ER.24H PO SCH (13:03)
[2017-12-21] MEDS: SODIUM CHLORIDE 0.9% 1,000 ML IV SCH (13:04)
[2017-12-21 17:30] LABS: Glucose,Whole Blood 148 mg/dL (75-99)
[2017-12-21] MEDS: ATORVASTATIN 80 MG TAB PO SCH (20:46)
[2017-12-21] MEDS: INSULIN DETEMIR 100 UNIT/ML 10 ML VIAL SQ SCH (20:46)
[2017-12-21 21:35] LABS: Glucose,Whole Blood 148 mg/dL (75-99)
[2017-12-22 06:23] LABS: Glucose,Whole Blood 91 mg/dL (75-99)
[2017-12-22] MEDS: MIDODRINE 5 MG TAB PO SCH ×3 (08:10→16:57)
[2017-12-22] MEDS: ASPIRIN 81 MG PO SCH (08:10)
[2017-12-22] MEDS: KETOROLAC 0.5% OPHTH DROPS 5 ML BTL LEFT EYE SCH ×2 (08:11→20:51)
[2017-12-22] MEDS: CHOLECALCIFEROL 1,000 UNIT TAB PO SCH (08:11)
[2017-12-22] MEDS: MAGNESIUM OXIDE 400 MG TAB PO SCH ×2 (08:11→20:51)
[2017-12-22] MEDS: CLOPIDOGREL 75 MG TAB PO SCH (08:11)
[2017-12-22] MEDS: DULoxetine HCL 60 MG CAPSULE.DR PO SCH (08:11)
[2017-12-22] MEDS: METOPROLOL SUCCINATE (ER) 25 MG TAB.ER.24H PO SCH (08:11)
[2017-12-22] MEDS: MULTIVITAMINS, THERA 1 EACH TAB PO SCH (08:11)
[2017-12-22] MEDS: PANTOPRAZOLE 40 MG TABLET PO SCH (08:11)
[2017-12-22] MEDS: FENOFIBRATE 160 MG TAB PO SCH (08:11)
[2017-12-22] MEDS: INSULIN ASPART 100 UNIT/ML 1 ML 10 ML VIAL SQ SCH ×3 (08:15→17:01)
[2017-12-22] MEDS: NON-FORMULARY DRUG (Lifitegrast [Xiidra] 1 DROP) BOTH EYES SCH ×2 (08:16→20:49)
[2017-12-22] MEDS: BIFIDOBACTERIUM INFANTIS 4 MG PO SCH (08:16)
--- NOTE | 2017-12-22 09:02 | PN ---
PROGRESS NOTE This patient was admitted with recurrent falls and syncope. Patient's initial blood pressure was low. She is feeling better. Blood pressure is now better. Last blood pressure was 121/67 mmHg. First and second heart sounds are normal. Lungs are clinically clear to auscultation and percussion. I am exactly not sure why this patient is on Eliquis. We will look into the old charts. At present I would recommend to continue the patient on aspirin and Plavix. The patient's EKG this time showed evidence of normal sinus rhythm. The patient is considered a high risk for any treatment of anti thrombolytic therapy. MMODL / IJN: [id number] /
[2017-12-22 10:02] VITALS: BMI 25.7
[2017-12-22 11:30] LABS: Glucose,Whole Blood 119 mg/dL (75-99)
--- NOTE | 2017-12-22 13:08 | P.PN ---
Subjective Progress Note Date: 12/22/17 This is a 72-year-old female who follows regularly with Dr. Brady in the office. She has a known history of coronary artery disease with prior bypass surgery, ischemic cardio myopathy with prior AICD, prior stent placements , severe PAD with prior endovascular aortic stenting, prior fem-fem and iliac stenting, hypertension, diabetes, hyperlipidemia, prior subclavian stenting, history of falls, she presented to the hospital following a near syncopal episode. According to the patient, she was sitting on the side of her bed became extremely dizzy and lightheaded, the next thing she recalls is falling forward and hitting her face. According to the patient she does not think that she lost complete consciousness. Patient has been experiencing symptoms of dizziness and lightheadedness and states that approximately a month ago medication adjustments have been made in the office by Dr. Brady because her blood pressure was noted to be significantly low. That scan of the brain was performed on arrival here which did not reveal any acute intracranial process. Chest x-ray did not reveal any acute pulmonary process. EKG on arrival here showed a normal sinus rhythm with nonspecific ST-T wave changes in the anterolateral leads. Blood pressure on arrival here 78/30, heart rate in the 60s, 100% on room air. The pressure this morning 112/50 with a heart rate in the 80s, 100% on room air. The patient's home medications include Ultram, co- every 10, ductal and 25 mg daily, multivitamin, Toprol 100 mg daily, Zestril 5 mg daily, Imdur 60 mg daily, insulin, Plavix 75 mg daily, Lipitor 80 mg daily, baby aspirin 81 mg daily, Eliquis 5 mg twice a day. At the time of my examination this morning, patient denies any dizziness or lightheadedness. She did incur significant ecchymosis to her facial area, there is also a hematoma on the forehead noted. 12/23/2007. Patient seen and examined this morning, states that she's feeling significantly better overall. She is still noted to have orthostatic hypotension, denies any dizziness or lightheadedness. Patient had been taking Eliquis at home, we will discontinue the Eliquis and keep the patient on a baby aspirin and Plavix. When we reviewed the patient's office note, it does appear that Dr. Brady had instructed her to discontinue the Eliquis. We will continue metoprolol 25 mg daily. Schedule the patient to follow-up with Dr. Brady in the office post discharge. Objective - Vital Signs Vital signs: Vital Signs Temp 96.7 F L 12/22/17 08:00 Pulse 84 12/22/17 11:46 Resp 16 12/22/17 11:46 BP 135/61 12/22/17 11:46 Pulse Ox 99 12/22/17 08:00 Intake & Output 12/21/17 12/22/17 12/22/17 18:59 06:59 18:59 Intake Total 10 0 Balance 10 0 Weight 59.8 kg 59.8 kg Intake: IV 10 Sodium Chloride 0.9% 1, 10 000 ml @ 20 mls/hr IV . Q24H NOE Rx#:[id number] Oral 0 Other: Voiding Method Toilet Toilet # Voids 3 1 - Exam PHYSICAL EXAMINATION: GENERAL: 72-year-old female in no acute distress at the time of my examination HEENT: Head is atraumatic, normocephalic. Significant facial ecchymosis noted, hematoma to the forehead, Pupils equal, round. Sclera anicteric. Conjunctiva are clear. Mucous membranes of the mouth are moist. Neck is supple. There is no elevated jugular venous pressure. No carotid bruit is heard. HEART EXAMINATION: Heart S1, S2 normal. No murmur or gallop heard. CHEST EXAMINATION: Lungs are clear to auscultation and precussion. No chest wall tenderness is noted on palpation or with deep breathing. ABDOMEN: Soft, nontender. Bowel sounds are heard. No organomegaly noted. EXTREMITIES: 2+ peripheral pulses with no evidence of peripheral edema and no calf tenderness noted. NEUROLOGIC patient is awake, alert and orientedX3. . - Labs CBC & Chem 7: 12/20/17 06:30 12/20/17 06:30 Labs: Abnormal Lab Results - Last 24 Hours (Table) 12/21/17 12/21/17 12/22/17 Range/Units 17:14 21:34 11:29 POC Glucose (mg/dL) 148 H 148 H 119 H (75-99) mg/dL Assessment and Plan Plan: Assessment and plan #1 symptoms of dizziness and lightheadedness with fall. No clear-cut syncope. Patient was hypotensive on admission with a blood pressure of 78/30. EKG showed normal sinus rhythm with nonspecific ST-T wave changes. #2 known history of coronary artery disease with prior bypass surgery and stent placements #3 diabetes #4 ischemic cardiomyopathy with prior AICD #5 hypertension history #6 hyperlipidemia #7 PAD and PPD, prior left Subclavian stenting, history of aortofemoral bypass #8 hypotension 9 chronic anemia Plan From cardiology's perspective, patient may be able to be discharged home once cleared by primary. We will continue beta adilia 25 mg by mouth daily. Follow -up appointment with Dr. Brady will be as one week post discharge. DNP note has been reviewed, I agree with a documented findings and plan of care. Patient was seen and examined.
--- NOTE | 2017-12-22 13:58 | P.DS ---
Providers Date of admission: 12/19/17 15:44 Expected date of discharge: 12/22/17 Attending physician: Audra Mcginnis Consults: 12/19/17 15:43 Consult Physician Routine Consulting Provider: Dieter Chavira Consult Reason/Comments: Syncope, hypotension, dehydration Do you want consulting provider notified?: Yes Primary care physician: Vladimir Azul [facility] Course: This is a 72-year-old female one of Dr. Latha Amezcua with a previous medical history significant for coronary artery disease status post coronary artery bypass graft with ischemic cardio myopathy and percutaneous coronary intervention and a total of 4 stents placement last one was put in the LAD back in November 2014, AICD placement, cardiomyopathy EF 43%, CABG with ischemic heart disease, patent HA, saphenous vein graft to RCA, 100% occluded circumflex with collaterals, recent echocardiogram revealed echo 20-25% with severe global hypokinesia, moderate MR, moderate pulmonary hypertension October 2017 echocardiogram.history of left subclavian stenosis status post stenting, carotid artery disease status post bilateral carotid endarterectomies, severe peripheral arterial occlusive disease, vasculitis , severe PAD with recent endovascular placement of aortic stent for occlusive disease of the aorta, left iliac stent, fem-fem bypass with greater saphenous vein at [facility]. Goldie at [facility], She presented to emergency room secondary to recurrent fallswith multiple admissions from our facility secondary to falls,the patient was at bedside and attempted to stand, while still in sitting position whe felt light headed and fell forwards hitting face towards floor. sustained bruised in periorbits, face and cheekbones, patient was noted to be hypotensive emergency room with blood pressure of 66 systolic,fluid resuscitation provided, patient denies any lumbar spinnous process pain, has history of polio in the past affecting right leg weakness, patient denies any other focal neurologic deficits in speech and vision no syncope or chestpain. Patient has chronic lower extremity resolving folliculitis scattered all throughout bilateral legs 8/4 Patient examined bedside. Is able to comprehend and answers all questions appropriately. Vital signs obtained this morning appears to be better than yesterday with negative orthostatics. We'll hold diuretics and blood pressure medication for now. Hold IV fluid as patient has cardiomyopathy with the EF last reported with 20-25%. Patient denies any further episode of dizziness or lightheadedness. Did complain of some on and off chest pain this morning for which nitro initiated. 12/21 Patient examined bedside. Is able to answer all the questions. Feels better does not have any dizziness since yesterday. No episodes of falls. Blood pressure is staying between systolic 1:30 to 160. Metoprolol initiated at 25 mg today. Continue to hold Imdur. Patient denies any chest pain or breathing difficulty. She does have some subtle throbbing pain in her toes from the peripheral vascular disease and is following with Dr. Amezcua 12/22: Patient was orthostatic positive. Cardiology has held eliquis and plan to resume only aspirin and Plavix. They have also decreased Toprol-XL to 25 mg daily and discontinued indoor, lisinopril and Aldactone. Admitted rate was increased to 10 mg 3 times daily. Patient denies any lightheadedness or dizziness. We are planning for discharge to [facility] today once all arrangements are completed. Discharge diagnoses: 1. recurrent syncope, with multiple falls, and head concussion last week, multiples, bruises in the facial structures, secondary to orthostatic hypotension 2. Chronic kidney disease stage II, present on admission 3. CAD post CABG and stent placements with ischemic cardiopathy post AICD. 4. Severe PAD post evaluation by vascular surgery status post recent endovascular placement of aortic stent for occlusive disease of the aorta, left iliac stent, and fem-fem bypass with great saphenous vein at [facility]. 5. Carotid artery disease status post carotid endarterectomies. 6. Uncontrolled diabetes mellitus type 2 due to hyperglycemia with PVD and diabetic neuropathy 7. Hypertension and hypertensive cardio vascular disease. 8. Hyperlipidemia. 9. History of left subclavian stenosis. Post stenting. 10. History of GERD. 11. Vitamin D deficiency. 12. Recurrent depression. 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 14. 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 15 Spinal stenosis L3-L4, L4-L5, severe R L3-L4 area with moderate severe spinal stenosis posterior disc bulging with facet arthropathy, based on CAT scan 09/20/2017 Discharge plan: [facility] under the care of Dr. Azul Impression and plan of care have been directed as dictated by the signing physician. Edie Martinez nurse practitioner acting as scribe for signing physician. Patient Condition at Discharge: Good Plan - Discharge Summary Discharge Rx Participant: Yes New Discharge Prescriptions: New Metoprolol Succinate (ER) [Toprol XL] 25 mg PO DAILY #30 tab.er.24h Midodrine [ProAmatine] 10 mg PO TID@0800,1300,1700 #180 tab Continue Clopidogrel [Plavix] 75 mg PO DAILY@0900 Lansoprazole [Prevacid] 30 mg PO DAILY@0900 DULoxetine HCL [Cymbalta] 60 mg PO DAILY@0900 Cholecalciferol [Vitamin D3] 2,000 unit PO DAILY@0900 Multivitamins, Thera [Multivitamin (formulary)] 1 tab PO DAILY@0900 Ubidecarenone [Co Q-10] 400 mg PO DAILY@0900 Nitroglycerin Sl Tabs [Nitrostat] 0.4 mg SUBLINGUAL Q5M PRN PRN Reason: Chest Pain Bifidobacterium Infantis [Align] 4 mg PO DAILY@0900 Lifitegrast [Xiidra] 1 drop BOTH EYES BID Dulaglutide [Trulicity] 0.75 mg SQ WE Ketorolac 0.5% Ophth Soln [Acular 0.5%] 1 drops LEFT EYE BID INSULIN LISPRO (humaLOG) [humaLOG] 4 units SQ AC-TID@,, Insulin Glargine [Lantus] 10 units SQ HS@2100 INSULIN LISPRO (humaLOG) [humaLOG] See Protocol SQ ACHS Gabapentin [Neurontin] 100 mg PO TID@0900,1200,1700 Fenofibrate [Lofibra] 160 mg PO DAILY@0900 Calcium Carbonate 648mg 648 mg PO BID@ Atorvastatin [Lipitor] 80 mg PO HS@2100 Aspirin 81 mg PO DAILY@0900 traMADol HCL [Ultram] 50 mg PO Q4HR PRN #30 tablet PRN Reason: Pain Discontinued Isosorbide Mononitrate ER [Imdur] 60 mg PO DAILY@0900 Lisinopril [Zestril] 5 mg PO DAILY@0900 Apixaban [Eliquis] 5 mg PO BID@0900,2100 Metoprolol Succinate (ER) [Toprol XL] 100 mg PO DAILY #30 tab Midodrine [ProAmatine] 5 mg PO TID #30 tablet Spironolactone [Aldactone] 25 mg PO DAILY #20 tablet Discharge Medication List Clopidogrel [Plavix] 75 mg PO DAILY@89911/22/14 [History] Cholecalciferol [Vitamin D3] 2,000 unit PO DAILY@89902/02/17 [History] DULoxetine HCL [Cymbalta] 60 mg PO DAILY@89902/02/17 [History] Lansoprazole [Prevacid] 30 mg PO DAILY@89902/02/17 [History] Multivitamins, Thera [Multivitamin (formulary)] 1 tab PO DAILY@89906/16/17 [ History] Ubidecarenone [Co Q-10] 400 mg PO DAILY@89906/16/17 [History] Bifidobacterium Infantis [Align] 4 mg PO DAILY@89909/18/17 [History] Nitroglycerin Sl Tabs [Nitrostat] 0.4 mg SUBLINGUAL Q5M PRN 09/18/17 [History] Aspirin 81 mg PO DAILY@89910/31/17 [History] Atorvastatin [Lipitor] 80 mg PO HS@209910/31/17 [History] Calcium Carbonate 648mg 648 mg PO BID@,10/31/17 [History] Dulaglutide [Trulicity] 0.75 mg SQ WE 10/31/17 [History] Fenofibrate [Lofibra] 160 mg PO DAILY@89910/31/17 [History] Gabapentin [Neurontin] 100 mg PO TID@0900,1200,1700 10/31/17 [History] INSULIN LISPRO (humaLOG) [humaLOG] 4 units SQ AC-TID@,,10/31/17 [History] INSULIN LISPRO (humaLOG) [humaLOG] See Protocol SQ ACHS 10/31/17 [History] Insulin Glargine [Lantus] 10 units SQ HS@209910/31/17 [History] Ketorolac 0.5% Ophth Soln [Acular 0.5%] 1 drops LEFT EYE BID 10/31/17 [History] Lifitegrast [Xiidra] 1 drop BOTH EYES BID 10/31/17 [History] traMADol HCL [Ultram] 50 mg PO Q4HR PRN #30 tablet 11/05/17 [Rx] Metoprolol Succinate (ER) [Toprol XL] 25 mg PO DAILY #30 tab.er.24h 12/22/17 [Rx ] Midodrine [ProAmatine] 10 mg PO TID@0800,1300,1700 #180 tab 12/22/17 [Rx] Follow up Appointment(s)/Referral(s): [facility] [Provider Group] - 1 Week Vladimir Azul MD [Primary Care Provider] - 1 Week Activity/Diet/Wound Care/Special Instructions: ECF on DC Discharge Disposition: TRANSFER TO SNF/ECF
--- NOTE | 2017-12-22 14:34 | P.PN ---
Subjective Progress Note Date: 12/22/17 This is a 72-year-old female one of Dr. Latha Amezcua with a previous medical history significant for coronary artery disease status post coronary artery bypass graft with ischemic cardio myopathy and percutaneous coronary intervention and a total of 4 stents placement last one was put in the LAD back in November 2014, AICD placement, cardiomyopathy EF 43%, CABG with ischemic heart disease, patent HA, saphenous vein graft to RCA, 100% occluded circumflex with collaterals, recent echocardiogram revealed echo 20-25% with severe global hypokinesia, moderate MR, moderate pulmonary hypertension October 2017 echocardiogram.history of left subclavian stenosis status post stenting, carotid artery disease status post bilateral carotid endarterectomies, severe peripheral arterial occlusive disease, vasculitis , severe PAD with recent endovascular placement of aortic stent for occlusive disease of the aorta, left iliac stent, fem-fem bypass with greater saphenous vein at [facility]. Goldie at [facility], She presented to emergency room secondary to recurrent fallswith multiple admissions from our facility secondary to falls,the patient was at bedside and attempted to stand, while still in sitting position whe felt light headed and fell forwards hitting face towards floor. sustained bruised in periorbits, face and cheekbones, patient was noted to be hypotensive emergency room with blood pressure of 66 systolic,fluid resuscitation provided, patient denies any lumbar spinnous process pain, has history of polio in the past affecting right leg weakness, patient denies any other focal neurologic deficits in speech and vision no syncope or chestpain. Patient has chronic lower extremity resolving folliculitis scattered all throughout bilateral legs 12/20 Patient examined bedside. Is able to comprehend and answers all questions appropriately. Vital signs obtained this morning appears to be better than yesterday with negative orthostatics. We'll hold diuretics and blood pressure medication for now. Hold IV fluid as patient has cardiomyopathy with the EF last reported with 20-25%. Patient denies any further episode of dizziness or lightheadedness. Did complain of some on and off chest pain this morning for which nitro initiated. 12/21 Patient examined bedside. Is able to answer all the questions. Feels better does not have any dizziness since yesterday. No episodes of falls. Blood pressure is staying between systolic 1:30 to 160. Metoprolol initiated at 25 mg today. Continue to hold Imdur. Patient denies any chest pain or breathing difficulty. She does have some subtle throbbing pain in her toes from the peripheral vascular disease and is following with Dr. Amezcua 12/22: Patient was orthostatic positive. Cardiology has held eliquis and plan to resume only aspirin and Plavix. They have also decreased Toprol-XL to 25 mg daily and discontinued indoor, lisinopril and Aldactone. Midodrine was increased to 10 mg 3 times daily. Patient denies any lightheadedness or dizziness. We are planning for discharge to [facility] today once all arrangements are completed which will most likely be tomorrow as insurance authorization needs to be obtained.. Objective - Vital Signs Vital signs: Vital Signs Temp 96.7 F L 12/22/17 08:00 Pulse 67 12/22/17 08:00 Resp 16 12/22/17 08:00 BP 126/58 12/22/17 08:00 Pulse Ox 99 12/22/17 08:00 Intake & Output 12/21/17 12/22/17 12/22/17 18:59 06:59 18:59 Intake Total 10 0 Balance 10 0 Weight 59.8 kg 59.8 kg Intake: IV 10 Sodium Chloride 0.9% 1, 10 000 ml @ 20 mls/hr IV . Q24H [facility] Rx#:[id number] Oral 0 Other: Voiding Method Toilet # Voids 3 1 - Exam General appearance: cooperative, no acute distress - EENT Eyes: anicteric sclerae, PERRLA, dentition normal, normal appearance ENT: NA/AT, normal oropharynx - Neck Neck: normal ROM - Respiratory Respiratory: bilateral: CTA, negative: diminished, dullness, rales, rhonchi - Cardiovascular Rhythm: regular Heart sounds: normal: S1, S2 Abnormal Heart Sounds: systolic murmur - Gastrointestinal General gastrointestinal: no absent bowel sounds, no decreased bowel sounds, no distended, no hepatomegaly, no hyperactive bowel sounds, normal bowel sounds, no organomegaly, no rigid, no scaphoid, soft, no splenomegaly, no tenderness, no umbilical hernia, no ventral hernia - Integumentary Integumentary: Significant. Periorbital ecchymosis with a current ecchymosis involving the 4 head and the cheeks. With bumps over the forehead no bleeding Neurologic Neurologic: CNII-XII intact - Musculoskeletal Musculoskeletal: generalized weakness, strength equal bilaterally - Psychiatric Psychiatric: A&O x's 3, appropriate affect, intact judgment & insight - Labs CBC & Chem 7: 12/20/17 06:30 12/20/17 06:30 Labs: Abnormal Lab Results - Last 24 Hours (Table) 12/21/17 12/21/17 12/21/17 Range/Units 12:00 17:14 21:34 POC Glucose (mg/dL) 132 H 148 H 148 H (75-99) mg/dL Assessment and Plan Plan: 1. recurrent syncope, with multiple falls, and head concussion last week, multiples, bruises in the facial structures, secondary to orthostatic hypotension. Midodrine increased to 10 mg 3 times daily. Aldactone Imdur Zestril is on hold. 2. CKD stage II, monitor for renal hypoperfusion related to hypovolemia, maintain fluid resuscitation, 3. CAD post CABGand stent placements with ischemic cardiopathy post AICD. continue risk modifications,beta blockers would be continued with parameters on holding lisinopril and Imdur is on hold. metoprolol initiated at 25 mg po daily 4. Severe PAD post evaluation by vascular surgery status post recent endovascular placement of aortic stent for occlusive disease of the aorta, left iliac stent, and fem-fem bypass with great saphenous vein at [facility]. Continue Pletal 100 mg orally twice every day. 5. Carotid artery disease status post carotid endarterectomies. Continue with aspirin, Plavix, Lipitor for secondary prevention. 6. Ucontrolled diabetes mellitus type 2 with PVD complications, neuropathy, Lantus 10 units daily NovoLog scale with 4 units pre-meal 3 times a day, on trulicity. along with the Humalog per sliding scale. Continue BGM before each meal and bedtime. 7. Hypertension and hypertensive cardio vascular disease. lisinopril on hold secondary to hypotension, Imdur and hold, metoprolol will be held based on systolic blood pressure less than 100 8. Hyperlipidemia. Continue patient on Lipitor 80 mg orally once every day. 9. History of left subclavian stenosis. Post stenting. Stable at this time. 10. History of GERD. Continue patient on Prevacid 30 mg orally once every day. 11. Vitamin D deficiency. Continue patient on vitamin D 1000 units once every day. 12. Depression. Continue Cymbalta 60 mg orally once every day. 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 14. 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 15 History of left subclavianstenosis status post stenting 16 spinal stenosis L3-L4, L4-L5, severe R L3-L4 area with moderate severe spinal stenosis posterior disc bulging with facet arthropathy, based on CAT scan 09/20/2017physical therapy, might need consult with Dr. Crocker DVT prophylaxis. GI prophylaxis. Continue PPI. Discharge plan: To [facility] in the morning. Impression and plan of care have been directed as dictated by the signing physician. Edie Martinez nurse practitioner acting as scribe for signing physician.
[2017-12-22 16:56] LABS: Glucose,Whole Blood 128 mg/dL (75-99)
[2017-12-22] MEDS: SODIUM CHLORIDE 0.9% 1,000 ML IV SCH (20:50)
[2017-12-22] MEDS: ATORVASTATIN 80 MG TAB PO SCH (20:51)
[2017-12-22 20:54] LABS: Glucose,Whole Blood 174 mg/dL (75-99)
[2017-12-22] MEDS: INSULIN DETEMIR 100 UNIT/ML 10 ML VIAL SQ SCH (21:00)
[2017-12-22 21:55] VITALS: RESP 18
[2017-12-22] MEDS: traMADol 50 MG TAB PO PRN (22:01)
[2017-12-23 05:23] VITALS: BP 159/73; PULSE 80; TEMP 98
[2017-12-23 06:13] LABS: Glucose,Whole Blood 123 mg/dL (75-99)
[2017-12-23] MEDS ORDERED: ASPIRIN 81 MG PO SCH (09:00)
[2017-12-23] MEDS: MIDODRINE 5 MG TAB PO SCH ×2 (09:15→12:45)
[2017-12-23] MEDS: PANTOPRAZOLE 40 MG TABLET PO SCH (09:15)
[2017-12-23] MEDS: CHOLECALCIFEROL 1,000 UNIT TAB PO SCH (09:15)
[2017-12-23] MEDS: DULoxetine HCL 60 MG CAPSULE.DR PO SCH (09:15)
[2017-12-23] MEDS: MULTIVITAMINS, THERA 1 EACH TAB PO SCH (09:16)
[2017-12-23] MEDS: KETOROLAC 0.5% OPHTH DROPS 5 ML BTL LEFT EYE SCH (09:16)
[2017-12-23] MEDS: MAGNESIUM OXIDE 400 MG TAB PO SCH (09:16)
[2017-12-23] MEDS: METOPROLOL SUCCINATE (ER) 25 MG TAB.ER.24H PO SCH (09:16)
[2017-12-23] MEDS: CLOPIDOGREL 75 MG TAB PO SCH (09:17)
[2017-12-23] MEDS: FENOFIBRATE 160 MG TAB PO SCH (09:17)
[2017-12-23] MEDS: BIFIDOBACTERIUM INFANTIS 4 MG PO SCH (09:21)
[2017-12-23] MEDS: NON-FORMULARY DRUG (Lifitegrast [Xiidra] 1 DROP) BOTH EYES SCH (09:21)
[2017-12-23] MEDS: INSULIN ASPART 100 UNIT/ML 1 ML 10 ML VIAL SQ SCH ×2 (09:24→12:18)
[2017-12-23 11:59] LABS: Glucose,Whole Blood 101 mg/dL (75-99)
--- NOTE | 2017-12-23 15:07 | P.PN ---
Subjective Progress Note Date: 12/23/17 This is a 72-year-old female who follows regularly with Dr. Brady in the office. She has a known history of coronary artery disease with prior bypass surgery, ischemic cardio myopathy with prior AICD, prior stent placements , severe PAD with prior endovascular aortic stenting, prior fem-fem and iliac stenting, hypertension, diabetes, hyperlipidemia, prior subclavian stenting, history of falls, she presented to the hospital following a near syncopal episode. According to the patient, she was sitting on the side of her bed became extremely dizzy and lightheaded, the next thing she recalls is falling forward and hitting her face. According to the patient she does not think that she lost complete consciousness. Patient has been experiencing symptoms of dizziness and lightheadedness and states that approximately a month ago medication adjustments have been made in the office by Dr. Brady because her blood pressure was noted to be significantly low. That scan of the brain was performed on arrival here which did not reveal any acute intracranial process. Chest x-ray did not reveal any acute pulmonary process. EKG on arrival here showed a normal sinus rhythm with nonspecific ST-T wave changes in the anterolateral leads. Blood pressure on arrival here 78/30, heart rate in the 60s, 100% on room air. The pressure this morning 112/50 with a heart rate in the 80s, 100% on room air. The patient's home medications include Ultram, co- every 10, ductal and 25 mg daily, multivitamin, Toprol 100 mg daily, Zestril 5 mg daily, Imdur 60 mg daily, insulin, Plavix 75 mg daily, Lipitor 80 mg daily, baby aspirin 81 mg daily, Eliquis 5 mg twice a day. At the time of my examination this morning, patient denies any dizziness or lightheadedness. She did incur significant ecchymosis to her facial area, there is also a hematoma on the forehead noted. 12/23/2007. Patient seen and examined this morning, states that she's feeling significantly better overall. She is still noted to have orthostatic hypotension, denies any dizziness or lightheadedness. Patient had been taking Eliquis at home, we will discontinue the Eliquis and keep the patient on a baby aspirin and Plavix. When we reviewed the patient's office note, it does appear that Dr. Brady had instructed her to discontinue the Eliquis. We will continue metoprolol 25 mg daily. Schedule the patient to follow-up with Dr. Brady in the office post discharge. 12/23/2017 Patient seen and examined this morning, feeling well, eager to be discharged home.Hemodynamically stable. Denies any dizziness or lightheadedness. Objective - Vital Signs Vital signs: Vital Signs Temp 98.0 F 12/23/17 04:00 Pulse 80 12/23/17 04:00 Resp 18 12/23/17 11:49 BP 159/73 12/23/17 04:00 Pulse Ox 97 12/23/17 04:00 Intake & Output 12/22/17 12/23/17 12/23/17 18:59 06:59 18:59 Intake Total 150 118 Output Total 300 Balance -150 118 Weight 59.8 kg 57.4 kg Intake: Oral 150 118 Output: Urine 300 Other: Voiding Method Toilet Toilet # Voids 1 - Exam PHYSICAL EXAMINATION: GENERAL: 72-year-old female in no acute distress at the time of my examination HEENT: Head is atraumatic, normocephalic. Significant facial ecchymosis noted, hematoma to the forehead, Pupils equal, round. Sclera anicteric. Conjunctiva are clear. Mucous membranes of the mouth are moist. Neck is supple. There is no elevated jugular venous pressure. No carotid bruit is heard. HEART EXAMINATION: Heart S1, S2 normal. No murmur or gallop heard. CHEST EXAMINATION: Lungs are clear to auscultation and precussion. No chest wall tenderness is noted on palpation or with deep breathing. ABDOMEN: Soft, nontender. Bowel sounds are heard. No organomegaly noted. EXTREMITIES: 2+ peripheral pulses with no evidence of peripheral edema and no calf tenderness noted. NEUROLOGIC patient is awake, alert and orientedX3. . - Labs CBC & Chem 7: 12/20/17 06:30 12/20/17 06:30 Labs: Abnormal Lab Results - Last 24 Hours (Table) 12/22/17 12/22/17 12/23/17 Range/Units 16:55 20:52 06:11 POC Glucose (mg/dL) 128 H 174 H 123 H (75-99) mg/dL 12/23/17 Range/Units 11:57 POC Glucose (mg/dL) 101 H (75-99) mg/dL Assessment and Plan Plan: Assessment and plan #1 symptoms of dizziness and lightheadedness with fall. No clear-cut syncope. Patient was hypotensive on admission with a blood pressure of 78/30. EKG showed normal sinus rhythm with nonspecific ST-T wave changes. #2 known history of coronary artery disease with prior bypass surgery and stent placements #3 diabetes #4 ischemic cardiomyopathy with prior AICD #5 hypertension history #6 hyperlipidemia #7 PAD and PPD, prior left Subclavian stenting, history of aortofemoral bypass #8 hypotension 9 chronic anemia Plan From cardiology's perspective, patient may be able to be discharged home once cleared by primary. We will continue beta adilia 25 mg by mouth daily. Follow -up appointment with Dr. Brady will be as one week post discharge. DNP note has been reviewed, I agree with a documented findings and plan of care. Patient was seen and examined.
[2017-12-24] MEDS ORDERED: NON-FORMULARY DRUG (Dulaglutide [Trulicity] 0.75 MG) SQ SCH (17:12)
== END 2017-12-23 13:22 | disposition home health service (06) | DRG 312 ==
LOC: EC 14:19 → 6SEL 15:44
PROVIDERS: ADMIT Family Medicine; ATTEND Family Medicine
DX: I95.1 Orthostatic hypotension (principal); R57.1 Hypovolemic shock; S06.0X9A Concussion with loss of consciousness of unspecified duration, initial encounter; F33.9 Major depressive disorder, recurrent, unspecified; I13.0 Hypertensive heart and chronic kidney disease with heart failure and stage 1 through stage 4 chronic kidney disease, or unspecified chronic kidney disease; N17.9 Acute kidney failure, unspecified; E11.22 Type 2 diabetes mellitus with diabetic chronic kidney disease; E11.40 Type 2 diabetes mellitus with diabetic neuropathy, unspecified; E86.0 Dehydration; E11.51 Type 2 diabetes mellitus with diabetic peripheral angiopathy without gangrene; I27.20 Pulmonary hypertension, unspecified; I50.9 Heart failure, unspecified; E11.65 Type 2 diabetes mellitus with hyperglycemia; I25.5 Ischemic cardiomyopathy; I34.0 Nonrheumatic mitral (valve) insufficiency; S00.83XA Contusion of other part of head, initial encounter; E55.9 Vitamin D deficiency, unspecified; M48.061 Spinal stenosis, lumbar region without neurogenic claudication; R29.6 Repeated falls; N18.2 Chronic kidney disease, stage 2 (mild); K21.9 Gastro-esophageal reflux disease without esophagitis; E78.5 Hyperlipidemia, unspecified; D64.9 Anemia, unspecified; L73.9 Follicular disorder, unspecified; M46.96 Unspecified inflammatory spondylopathy, lumbar region; M19.91 Primary osteoarthritis, unspecified site; I70.8 Atherosclerosis of other arteries; I25.2 Old myocardial infarction; R53.1 Weakness; B91 Sequelae of poliomyelitis; I25.10 Atherosclerotic heart disease of native coronary artery without angina pectoris; F41.9 Anxiety disorder, unspecified; H26.9 Unspecified cataract; Z79.82 Long term (current) use of aspirin; Z79.01 Long term (current) use of anticoagulants; Z79.02 Long term (current) use of antithrombotics/antiplatelets; Z79.4 Long term (current) use of insulin; Z79.899 Other long term (current) drug therapy; Z86.73 Personal history of transient ischemic attack (TIA), and cerebral infarction without residual deficits; Z95.810 Presence of automatic (implantable) cardiac defibrillator; Z95.5 Presence of coronary angioplasty implant and graft; Z95.1 Presence of aortocoronary bypass graft; Z95.828 Presence of other vascular implants and grafts; Z90.710 Acquired absence of both cervix and uterus; Z90.49 Acquired absence of other specified parts of digestive tract; Z86.79 Personal history of other diseases of the circulatory system; Z91.81 History of falling; Z98.42 Cataract extraction status, left eye; Z91.040 Latex allergy status; Z88.5 Allergy status to narcotic agent; Z88.8 Allergy status to other drugs, medicaments and biological substances; Z91.048 Other nonmedicinal substance allergy status; W19.XXXA Unspecified fall, initial encounter; Z80.8 Family history of malignant neoplasm of other organs or systems; Z82.49 Family history of ischemic heart disease and other diseases of the circulatory system; Z83.49 Family history of other endocrine, nutritional and metabolic diseases
CPT/HCPCS: 36415; 70450; 71046; 80048; 80053; 81001; 82550; 82553; 83605; 83735; 84484; 85025; 85027; 85610; 85730; 93005; 96361; 96365; 96366; 99285

== ENCOUNTER 2017-12-25 11:50 | Inpatient (IN) | payer MEDICARE, OTHER ==
--- NOTE | 2017-12-25 12:01 | ED ---
Syncope HPI - General Stated Complaint: fall Time Seen by Provider: 12/25/17 11:50 Source: patient, EMS, RN notes reviewed, old records reviewed Mode of arrival: EMS - History of Present Illness Initial Comments: This is a 72-year-old female history of a fall in the last couple weeks with facial injuries who currently is in the process of healing who got up off a commode and became lightheaded dizzy with loss of consciousness no head or neck injury she was found have a blood pressure 60/38 she also states that she believes she is drinking enough fluids. She denies any fevers chills nausea vomiting sweats. She's had recent episodes similar to this in the past she did recently have aortic bypass surgery within the last 6 weeks. Per paramedics she did have an episode of passing out while in front of them. It was brief. With about 30 seconds of confusion MD Complaint: almost passed out - Related Data Home Medications Medication Instructions Recorded Confirmed Clopidogrel [Plavix] 75 mg PO DAILY@89911/22/14 12/25/17 Cholecalciferol [Vitamin D3] 2,000 unit PO DAILY@89902/02/17 12/25/17 DULoxetine HCL [Cymbalta] 60 mg PO DAILY@89902/02/17 12/25/17 Lansoprazole [Prevacid] 30 mg PO DAILY@89902/02/17 12/25/17 Multivitamins, Thera [Multivitamin 1 tab PO DAILY@89906/16/17 12/25/17 (formulary)] Ubidecarenone [Co Q-10] 400 mg PO DAILY@89906/16/17 12/25/17 Bifidobacterium Infantis [Align] 4 mg PO DAILY@89909/18/17 12/25/17 Nitroglycerin Sl Tabs [Nitrostat] 0.4 mg SUBLINGUAL Q5M PRN 09/18/17 12/25/17 Aspirin 81 mg PO DAILY@89910/31/17 12/25/17 Atorvastatin [Lipitor] 80 mg PO HS@2100 10/31/17 12/25/17 Calcium Carbonate 648mg 648 mg PO BID@10/31/17 12/25/17 Dulaglutide [Trulicity] 0.75 mg SQ WE 10/31/17 12/25/17 Fenofibrate [Lofibra] 160 mg PO DAILY@0900 10/31/17 12/25/17 Gabapentin [Neurontin] 100 mg PO TID@0900,1200,1700 10/31/17 12/25/17 INSULIN LISPRO (humaLOG) [humaLOG] 4 units SQ AC-TID@09,12,17 10/31/17 12/25/17 INSULIN LISPRO (humaLOG) [humaLOG] See Protocol SQ ACHS 10/31/17 12/25/17 Insulin Glargine [Lantus] 10 units SQ HS@2100 10/31/17 12/25/17 Ketorolac 0.5% Ophth Soln [Acular 1 drops LEFT EYE BID 10/31/17 12/25/17 0.5%] Lifitegrast [Xiidra] 1 drop BOTH EYES BID 10/31/17 12/25/17 Previous Rx's Medication Instructions Recorded traMADol HCL [Ultram] 50 mg PO Q4HR PRN #30 tablet 11/05/17 Metoprolol Succinate (ER) [Toprol 25 mg PO DAILY #30 tab.er.24h 12/22/17 XL] Midodrine [ProAmatine] 10 mg PO TID@0800,1300,1700 #180 12/22/17 tab Allergies Allergy/AdvReac Type Severity Reaction Status Date / Time adhesive Allergy Itching Verified 12/25/17 12:06 codeine Allergy Hallucinati Verified 12/25/17 12:06 ons dipyridamole Allergy heart Verified 12/25/17 12:06 [From Persantine] stopped latex AdvReac Rash/Hives Verified 12/25/17 12:06 metformin AdvReac "passed Verified 12/25/17 12:06 out" Review of Systems ROS Statement: Those systems with pertinent positive or pertinent negative responses have been documented in the HPI. ROS Other: All systems not noted in ROS Statement are negative. Past Medical History Past Medical History: Coronary Artery Disease (CAD), Chest Pain / Angina, Heart Failure, CVA/TIA, Diabetes Mellitus, GERD/Reflux, Hyperlipidemia, Hypertension, Myocardial Infarction (PA), Osteoarthritis (OA), Syncope Additional Past Medical History / Comment(s): HX OF POLIO, PAD, ISCHEMIC CARDIOMYOPATHY., RT CATARACTS., USES WALKER. Last Myocardial Infarction Date:: 2012 History of Any Multi-Drug Resistant Organisms: None Reported Past Surgical History: AICD, Appendectomy, Section, Cholecystectomy, Coronary Bypass/CABG, Heart Catheterization, Heart Catheterization With Stent, Hysterectomy Additional Past Surgical History / Comment(s): ABIMBOLA CAROTID ENDARTERECTOMY., OVARIAN CYST., STENT LT SUBCLAVIAN - TOTAL 4 STENTS ., [employer] AICD. , LT CATARACT REMOVED Past Anesthesia/Blood Transfusion Reactions: No Reported Reaction Date of Last Stent Placement:: 11/2014 Type of Cardiac Device: AICD Device Placement Date:: 2014 Past Psychological History: Anxiety, Depression Smoking Status: Never smoker Past Alcohol Use History: None Reported Past Drug Use History: None Reported - Past Family History Father Family Medical History: Cancer Additional Family Medical History / Comment(s): pt. states her father had throat cancer Mother Family Medical History: Coronary Artery Disease (CAD), Hyperlipidemia, Hypertension Additional Family Medical History / Comment(s): CABG General Exam - General Exam Comments Initial Comments: This a well-developed well-nourished awake alert oriented 3 female demonstrates a [place] Coma Scale 15 Limitations: no limitations General appearance: alert, in no apparent distress, other (He does demonstrate multiple healing bruises over the forehead and bilateral facial region) Head exam: Present: atraumatic, normocephalic, normal inspection Eye exam: Present: normal appearance, PERRL, EOMI. Absent: scleral icterus, conjunctival injection, periorbital swelling ENT exam: Present: mucous membranes dry Neck exam: Present: normal inspection. Absent: tenderness, meningismus, lymphadenopathy Respiratory exam: Present: normal lung sounds bilaterally. Absent: respiratory distress, wheezes, rales, rhonchi, stridor Cardiovascular Exam: Present: regular rate, normal rhythm, normal heart sounds. Absent: systolic murmur, diastolic murmur, rubs, gallop, clicks GI/Abdominal exam: Present: soft, other (Well-healing surgical scars seen over the mid abdomen consistent with her prior surgery a very well-healed right upper quadrant scar. Cystoscopy with a prior cholecystectomy). Absent: bruit, pulsatile mass, hernia Rectal exam: Present: deferred Extremities exam: Present: normal inspection, full ROM, normal capillary refill. Absent: tenderness, pedal edema, joint swelling, calf tenderness Back exam: Present: normal inspection Neurological exam: Present: alert, oriented X3, CN II-XII intact Psychiatric exam: Present: normal affect, normal mood Skin exam: Present: warm, dry, intact, normal color. Absent: rash Course Vital Signs 12/25/17 12/25/17 12/25/17 12:00 12:05 14:49 Temperature 97.4 F L Pulse Rate 75 83 Pulse Rate [ 70 Waxer Tender ] Respiratory 16 18 Rate Blood Pressure 111/53 108/54 O2 Sat by Pulse 100 99 Oximetry 12/25/17 16:25 Temperature Pulse Rate 83 Pulse Rate [ Waxer Tender ] Respiratory 18 Rate Blood Pressure 130/58 O2 Sat by Pulse 95 Oximetry EKG Findings - EKG Results: EKG: interpreted by ERMD, sinus rhythm (Sinus rhythm rate of 70. Interval 192 QRS 80 QT since QTC 426/460 nonspecific inferior and anterior changes as well as nonspecific ST configuration) Medical Decision Making - Medical Decision Making Patient will be admitted she did have a syncopal episode at home which was initially was not given in the information. She's been noted have episodes of hypotension. She will be at admitted for inpatient evaluation and rehydration - Lab Data Result diagrams: 12/25/17 12:25 12/25/17 12:25 Lab Results 12/25/17 12/25/17 12/25/17 Range/Units 12:23 12:25 12:25 WBC 6.2 (3.8-10.6) k/uL RBC 3.90 (3.80-5.40) m/uL Hgb 10.4 L (11.4-16.0) gm/dL Hct 33.1 L (34.0-46.0) % MCV 84.8 (80.0-100.0) fL MCH 26.6 (25.0-35.0) pg MCHC 31.4 (31.0-37.0) g/dL RDW 14.6 (11.5-15.5) % Plt Count 261 (150-450) k/uL Neutrophils % 66 % Lymphocytes % 25 % Monocytes % 5 % Eosinophils % 2 % Basophils % 0 % Neutrophils # 4.1 (1.3-7.7) k/uL Lymphocytes # 1.5 (1.0-4.8) k/uL Monocytes # 0.3 (0-1.0) k/uL Eosinophils # 0.1 (0-0.7) k/uL Basophils # 0.0 (0-0.2) k/uL Hypochromasia Slight PT (9.0-12.0) sec INR (<1.2) APTT (22.0-30.0) sec Sodium (137-145) mmol/L Potassium (3.5-5.1) mmol/L Chloride (98-107) mmol/L Carbon Dioxide (22-30) mmol/L Anion Gap mmol/L BUN (7-17) mg/dL Creatinine (0.52-1.04) mg/dL Est GFR (CKD-EPI)AfAm (>60 ml/min/1.73 sqM) Est GFR (CKD-EPI)NonAf (>60 ml/min/1.73 sqM) Glucose (74-99) mg/dL POC Glucose (mg/dL) 145 H (75-99) mg/dL POC Glu Associate Financial Representative ID Soliz, Donato Calcium (8.4-10.2) mg/dL Magnesium (1.6-2.3) mg/dL Total Bilirubin (0.2-1.3) mg/dL AST (14-36) U/L ALT (9-52) U/L Alkaline Phosphatase (38-126) U/L Total Creatine Kinase 20 L (30-135) U/L CK-MB (CK-2) 0.4 (0.0-2.4) ng/mL CK-MB (CK-2) Rel Index 2.0 Troponin I 0.012 (0.000-0.034) ng/mL Total Protein (6.3-8.2) g/dL Albumin (3.5-5.0) g/dL Urine Color Urine Appearance (Clear) Urine pH (5.0-8.0) Ur Specific [place] (1.001-1.035) Urine Protein (Negative) Urine Glucose (UA) (Negative) Urine Ketones (Negative) Urine Blood (Negative) Urine Nitrite (Negative) Urine Bilirubin (Negative) Urine Urobilinogen (<2.0) mg/dL Ur Leukocyte Esterase (Negative) Urine RBC (0-5) /hpf Urine WBC (0-5) /hpf Ur Squamous Epith Cells (0-4) /hpf Urine Bacteria (None) /hpf Hyaline Casts (0-2) /lpf Urine Mucus (None) /hpf 12/25/17 12/25/17 12/25/17 Range/Units 12:25 12:25 15:05 WBC (3.8-10.6) k/uL RBC (3.80-5.40) m/uL Hgb (11.4-16.0) gm/dL Hct (34.0-46.0) % MCV (80.0-100.0) fL MCH (25.0-35.0) pg MCHC (31.0-37.0) g/dL RDW (11.5-15.5) % Plt Count (150-450) k/uL Neutrophils % % Lymphocytes % % Monocytes % % Eosinophils % % Basophils % % Neutrophils # (1.3-7.7) k/uL Lymphocytes # (1.0-4.8) k/uL Monocytes # (0-1.0) k/uL Eosinophils # (0-0.7) k/uL Basophils # (0-0.2) k/uL Hypochromasia PT 11.0 (9.0-12.0) sec INR 1.1 (<1.2) APTT 21.9 L (22.0-30.0) sec Sodium 136 L (137-145) mmol/L Potassium 4.4 (3.5-5.1) mmol/L Chloride 103 (98-107) mmol/L Carbon Dioxide 23 (22-30) mmol/L Anion Gap 10 mmol/L BUN 28 H (7-17) mg/dL Creatinine 1.70 H (0.52-1.04) mg/dL Est GFR (CKD-EPI)AfAm 35 (>60 ml/min/1.73 sqM) Est GFR (CKD-EPI)NonAf 30 (>60 ml/min/1.73 sqM) Glucose 148 H (74-99) mg/dL POC Glucose (mg/dL) (75-99) mg/dL POC Glu Associate Financial Representative ID Calcium 10.1 (8.4-10.2) mg/dL Magnesium 1.8 (1.6-2.3) mg/dL Total Bilirubin 0.4 (0.2-1.3) mg/dL AST 20 (14-36) U/L ALT 23 (9-52) U/L Alkaline Phosphatase 42 (38-126) U/L Total Creatine Kinase (30-135) U/L CK-MB (CK-2) (0.0-2.4) ng/mL CK-MB (CK-2) Rel Index Troponin I (0.000-0.034) ng/mL Total Protein 5.7 L (6.3-8.2) g/dL Albumin 3.4 L (3.5-5.0) g/dL Urine Color Yellow Urine Appearance Cloudy H (Clear) Urine pH 5.0 (5.0-8.0) Ur Specific [place] 1.015 (1.001-1.035) Urine Protein Trace H (Negative) Urine Glucose (UA) 3+ H (Negative) Urine Ketones Negative (Negative) Urine Blood Negative (Negative) Urine Nitrite Negative (Negative) Urine Bilirubin Negative (Negative) Urine Urobilinogen <2.0 (<2.0) mg/dL Ur Leukocyte Esterase Negative (Negative) Urine RBC 1 (0-5) /hpf Urine WBC 3 (0-5) /hpf Ur Squamous Epith Cells 3 (0-4) /hpf Urine Bacteria Rare H (None) /hpf Hyaline Casts 14 H (0-2) /lpf Urine Mucus Rare H (None) /hpf - Radiology Data Radiology results: report reviewed (I did review the imaging and report no acute findings.), image reviewed Disposition Clinical Impression: Vasovagal syncope, Syncope due to orthostatic hypotension, Dehydration Disposition: ADMITTED IP TO THIS [facility] Condition: Stable Referrals: Vladimir Azul MD [Primary Care Provider] - 1-2 days
[2017-12-25 12:31] LABS: Glucose,Whole Blood 145 mg/dL (75-99)
[2017-12-25] MEDS ORDERED: SODIUM CHLORIDE 0.9% 1,000 ML IV STA (13:26)
[2017-12-25] MEDS ORDERED: SODIUM CHLORIDE 0.9% 500 ML IV STA (13:26)
[2017-12-25 14:02] LABS: Basophils % (A) 0 %; Eosinophils # (A) 0.1 k/uL (0-0.7); Eosinophils % (A) 2 %; HCT 33.1 % (34.0-46.0); HGB 10.4 gm/dL (11.4-16.0); Hypochromasia Slight; Lymphocytes # (A) 1.5 k/uL (1.0-4.8); Lymphocytes % (A) 25 %; MCH 26.6 pg (25.0-35.0); MCHC 31.4 g/dL (31.0-37.0); MCV 84.8 fL (80.0-100.0); Mean Platelet Volume 7.7; Monocytes # (A) 0.3 k/uL (0-1.0); Monocytes % (A) 5 %; Neutrophils # (A) 4.1 k/uL (1.3-7.7); Neutrophils % (A) 66 %; Platelet Count 261 k/uL (150-450); RDW 14.6 % (11.5-15.5); WBC 6.2 k/uL (3.8-10.6)
--- NOTE | 2017-12-25 14:07 | XR ---
EXAMINATION TYPE: XR chest 2V DATE OF EXAM: 12/25/2017 COMPARISON: Chest x-ray from 6 days ago. HISTORY: Syncope and weakness. TECHNIQUE: Frontal and lateral views of the chest are obtained. FINDINGS: Overlying sternal wires and mediastinal clips are redemonstrated. There is no focal air sp demetrice opacity, pleural effusion, or pneumothorax seen. The cardiac silhouette size is stable and upper limits of normal. Single lead pacemaker/AICD is redemonstrated. Atherotic change in aortic knob is a gain seen. Spine is straightened on lateral view. Surgical clips anteriorly upper abdomen are redemon strated likely product of cholecystectomy. IMPRESSION: No acute cardiopulmonary process. No significant change from prior.
--- NOTE | 2017-12-25 14:08 | CT ---
EXAMINATION TYPE: CT brain wo con DATE OF EXAM: 12/25/2017 COMPARISON: 12/19/2017 HISTORY: Multiple falls, possible seizure CT DLP: 994.1 mGycm Automated exposure control for dose reduction was used. TECHNIQUE: CT scan of the head is performed without contrast. FINDINGS: There is a similar appearing 7 mm left frontal scalp hematoma. There is no acute intracran ial hemorrhage or midline shift identified. There is diffuse ventricular and sulcal prominence consis tent with diffuse age-related cerebral atrophy. There is low-attenuation in the periventricular whit e matter consistent with chronic small vessel ischemic change. The globes are intact and the visuali zed sinuses are clear. IMPRESSION: 1. No acute intracranial process. Chronic findings unchanged from the prior of 12/19/2017. 2. Persistent left frontal scalp hematoma measuring 7 mm in greatest thickness.
[2017-12-25 14:14] LABS: INR 1.1 (<1.2); Partial Thromboplastin Time 21.9 sec (22.0-30.0)
[2017-12-25 14:29] LABS: Albumin 3.4 g/dL (3.5-5.0); Calcium 10.1 mg/dL (8.4-10.2); Magnesium 1.8 mg/dL (1.6-2.3); Potassium 4.4 mmol/L (3.5-5.1); Total Bilirubin 0.4 mg/dL (0.2-1.3); Total Protein 5.7 g/dL (6.3-8.2)
[2017-12-25 14:53] LABS: Creatine Kinase MB 0.4 ng/mL (0.0-2.4); Troponin I 0.012 ng/mL (0.000-0.034)
[2017-12-25 15:19] LABS: Appearance,Urine Cloudy (Clear); Bacteria,Urine Rare /hpf; Bilirubin,Urine Negative (Negative); Blood,Urine Negative (Negative); Color,Urine Yellow; Glucose,Urine (UA) 3+ (Negative); Hyaline Casts,Urine 14 /lpf (0-2); Ketones,Urine Negative (Negative); Leukocyte Esterase,Urine Negative (Negative); Mucus,Urine Rare /hpf; Nitrite,Urine Negative (Negative); Protein,Urine Trace (Negative); RBC,Urine 1 /hpf (0-5); Specific Gravity,Urine 1.015 (1.001-1.035); Squamous Epithelial Cell,Urine 3 /hpf (0-4); Urobilinogen,Urine <2.0 mg/dL (<2.0); WBC,Urine 3 /hpf (0-5)
[2017-12-25] MEDS ORDERED: NALOXONE 0.4 MG/ML 1 ML VIAL IV PRN (17:26)
[2017-12-25] MEDS ORDERED: NITROGLYCERIN SL TABS 0.4 MG TAB SUBLINGUAL PRN (17:28)
--- NOTE | 2017-12-25 17:31 | ED ---
Medical Decision Making - Lab Data Result diagrams: 12/25/17 12:25 12/25/17 12:25 Lab Results 12/25/17 12/25/17 12/25/17 Range/Units 12:23 12:25 12:25 WBC 6.2 (3.8-10.6) k/uL RBC 3.90 (3.80-5.40) m/uL Hgb 10.4 L (11.4-16.0) gm/dL Hct 33.1 L (34.0-46.0) % MCV 84.8 (80.0-100.0) fL MCH 26.6 (25.0-35.0) pg MCHC 31.4 (31.0-37.0) g/dL RDW 14.6 (11.5-15.5) % Plt Count 261 (150-450) k/uL Neutrophils % 66 % Lymphocytes % 25 % Monocytes % 5 % Eosinophils % 2 % Basophils % 0 % Neutrophils # 4.1 (1.3-7.7) k/uL Lymphocytes # 1.5 (1.0-4.8) k/uL Monocytes # 0.3 (0-1.0) k/uL Eosinophils # 0.1 (0-0.7) k/uL Basophils # 0.0 (0-0.2) k/uL Hypochromasia Slight PT (9.0-12.0) sec INR (<1.2) APTT (22.0-30.0) sec Sodium (137-145) mmol/L Potassium (3.5-5.1) mmol/L Chloride (98-107) mmol/L Carbon Dioxide (22-30) mmol/L Anion Gap mmol/L BUN (7-17) mg/dL Creatinine (0.52-1.04) mg/dL Est GFR (CKD-EPI)AfAm (>60 ml/min/1.73 sqM) Est GFR (CKD-EPI)NonAf (>60 ml/min/1.73 sqM) Glucose (74-99) mg/dL POC Glucose (mg/dL) 145 H (75-99) mg/dL POC Glu Barrel Loader And Cleaner ID Donato Soliz Calcium (8.4-10.2) mg/dL Magnesium (1.6-2.3) mg/dL Total Bilirubin (0.2-1.3) mg/dL AST (14-36) U/L ALT (9-52) U/L Alkaline Phosphatase (38-126) U/L Total Creatine Kinase 20 L (30-135) U/L CK-MB (CK-2) 0.4 (0.0-2.4) ng/mL CK-MB (CK-2) Rel Index 2.0 Troponin I 0.012 (0.000-0.034) ng/mL Total Protein (6.3-8.2) g/dL Albumin (3.5-5.0) g/dL Urine Color Urine Appearance (Clear) Urine pH (5.0-8.0) Ur Specific [place] (1.001-1.035) Urine Protein (Negative) Urine Glucose (UA) (Negative) Urine Ketones (Negative) Urine Blood (Negative) Urine Nitrite (Negative) Urine Bilirubin (Negative) Urine Urobilinogen (<2.0) mg/dL Ur Leukocyte Esterase (Negative) Urine RBC (0-5) /hpf Urine WBC (0-5) /hpf Ur Squamous Epith Cells (0-4) /hpf Urine Bacteria (None) /hpf Hyaline Casts (0-2) /lpf Urine Mucus (None) /hpf 12/25/17 12/25/17 12/25/17 Range/Units 12:25 12:25 15:05 WBC (3.8-10.6) k/uL RBC (3.80-5.40) m/uL Hgb (11.4-16.0) gm/dL Hct (34.0-46.0) % MCV (80.0-100.0) fL MCH (25.0-35.0) pg MCHC (31.0-37.0) g/dL RDW (11.5-15.5) % Plt Count (150-450) k/uL Neutrophils % % Lymphocytes % % Monocytes % % Eosinophils % % Basophils % % Neutrophils # (1.3-7.7) k/uL Lymphocytes # (1.0-4.8) k/uL Monocytes # (0-1.0) k/uL Eosinophils # (0-0.7) k/uL Basophils # (0-0.2) k/uL Hypochromasia PT 11.0 (9.0-12.0) sec INR 1.1 (<1.2) APTT 21.9 L (22.0-30.0) sec Sodium 136 L (137-145) mmol/L Potassium 4.4 (3.5-5.1) mmol/L Chloride 103 (98-107) mmol/L Carbon Dioxide 23 (22-30) mmol/L Anion Gap 10 mmol/L BUN 28 H (7-17) mg/dL Creatinine 1.70 H (0.52-1.04) mg/dL Est GFR (CKD-EPI)AfAm 35 (>60 ml/min/1.73 sqM) Est GFR (CKD-EPI)NonAf 30 (>60 ml/min/1.73 sqM) Glucose 148 H (74-99) mg/dL POC Glucose (mg/dL) (75-99) mg/dL POC Glu Barrel Loader And Cleaner ID Calcium 10.1 (8.4-10.2) mg/dL Magnesium 1.8 (1.6-2.3) mg/dL Total Bilirubin 0.4 (0.2-1.3) mg/dL AST 20 (14-36) U/L ALT 23 (9-52) U/L Alkaline Phosphatase 42 (38-126) U/L Total Creatine Kinase (30-135) U/L CK-MB (CK-2) (0.0-2.4) ng/mL CK-MB (CK-2) Rel Index Troponin I (0.000-0.034) ng/mL Total Protein 5.7 L (6.3-8.2) g/dL Albumin 3.4 L (3.5-5.0) g/dL Urine Color Yellow Urine Appearance Cloudy H (Clear) Urine pH 5.0 (5.0-8.0) Ur Specific [place] 1.015 (1.001-1.035) Urine Protein Trace H (Negative) Urine Glucose (UA) 3+ H (Negative) Urine Ketones Negative (Negative) Urine Blood Negative (Negative) Urine Nitrite Negative (Negative) Urine Bilirubin Negative (Negative) Urine Urobilinogen <2.0 (<2.0) mg/dL Ur Leukocyte Esterase Negative (Negative) Urine RBC 1 (0-5) /hpf Urine WBC 3 (0-5) /hpf Ur Squamous Epith Cells 3 (0-4) /hpf Urine Bacteria Rare H (None) /hpf Hyaline Casts 14 H (0-2) /lpf Urine Mucus Rare H (None) /hpf Disposition Clinical Impression: Vasovagal syncope, Syncope due to orthostatic hypotension, Dehydration, Renal insufficiency syndrome Disposition: ADMITTED IP TO THIS HOSP Condition: Stable Referrals: Vladimir Azul MD [Primary Care Provider] - 1-2 days
[2017-12-25 18:00] LABS: Glucose,Whole Blood 249 mg/dL (75-99)
[2017-12-25] MEDS: INSULIN ASPART 100 UNIT/ML 1 ML 10 ML VIAL SQ SCH ×2 (18:14→22:30)
[2017-12-25 20:51] LABS: Glucose,Whole Blood 236 mg/dL (75-99)
[2017-12-26] MEDS: HEPARIN SODIUM,PORCINE 5,000 UNIT/ML 1 ML VIAL SQ SCH ×4 (00:15→23:09)
[2017-12-26] MEDS: CALCIUM CARBONATE 500 MG CHEWABLE PO SCH ×3 (00:48→21:09)
[2017-12-26] MEDS: ATORVASTATIN 80 MG TAB PO SCH ×2 (00:48→21:09)
[2017-12-26] MEDS: INSULIN DETEMIR 100 UNIT/ML 10 ML VIAL SQ SCH ×2 (00:49→21:09)
[2017-12-26] MEDS: traMADol 50 MG TAB PO PRN ×2 (00:50→21:14)
[2017-12-26] MEDS: KETOROLAC 0.5% OPHTH DROPS 5 ML BTL LEFT EYE SCH ×3 (00:50→21:09)
[2017-12-26 05:54] LABS: Glucose,Whole Blood 147 mg/dL (75-99)
[2017-12-26] MEDS: SODIUM CHLORIDE 0.9% 1,000 ML IV SCH ×4 (06:20→17:08)
[2017-12-26] MEDS: NON-FORMULARY DRUG (Lifitegrast [Xiidra] 1 DROP) BOTH EYES SCH ×3 (06:21→20:47)
[2017-12-26] MEDS: INSULIN ASPART 100 UNIT/ML 1 ML 10 ML VIAL SQ SCH ×7 (06:22→21:09)
[2017-12-26] MEDS: MIDODRINE 5 MG TAB PO SCH ×3 (08:14→17:05)
[2017-12-26] MEDS: FENOFIBRATE 160 MG TAB PO SCH (08:14)
[2017-12-26] MEDS: MULTIVITAMINS, THERA 1 EACH TAB PO SCH (08:14)
[2017-12-26] MEDS: GABAPENTIN 100 MG CAP PO SCH ×3 (08:14→17:05)
[2017-12-26] MEDS: DULoxetine HCL 60 MG CAPSULE.DR PO SCH (08:14)
[2017-12-26] MEDS: CLOPIDOGREL 75 MG TAB PO SCH (08:14)
[2017-12-26] MEDS: PANTOPRAZOLE 40 MG TABLET PO SCH (08:14)
[2017-12-26] MEDS: CHOLECALCIFEROL 1,000 UNIT TAB PO SCH (08:15)
[2017-12-26] MEDS: METOPROLOL SUCCINATE (ER) 25 MG TAB.ER.24H PO SCH (08:15)
[2017-12-26] MEDS: LACTOBACILLUS ACIDOPH & BULGAR 1 EACH PACKET PO SCH (08:19)
[2017-12-26] MEDS ORDERED: NON-FORMULARY DRUG (Ubidecarenone [Co Q-10] 400 MG) PO SCH (09:00)
--- NOTE | 2017-12-26 09:54 | CONS ---
CONSULTATION This patient's emergency room records and the past records reviewed. The patient was just recently discharged from the hospital after being admitted with hypotension and syncope. Patient's most of the cardiac medications except was discontinued and the patient was discharged home on midodrine and Toprol XL 25 mg daily. Patient did well for a couple of days. Yesterday she was sitting on the commode and she tried to get up and became dizzy and passed out. Initial blood pressure was 60 systolic. This patient has a known history of coronary artery disease with a prior history of coronary artery bypass surgery, stent placement, ischemic cardiomyopathy, and status post AICD placement. The patient also has a severe peripheral vascular disease with prior history of endovascular aortic stenting and fem-pop surgery. Patient recently had surgery at [facility] in [place]. Patient denies any chest pain, denies any shortness of breath, orthopnea or PND, fever or chills. Denies any nausea, vomiting, or diarrhea. PAST MEDICAL HISTORY: Past medical history includes a history of hypertension, hyperlipidemia, ischemic cardiomyopathy, history of TIA and coronary artery disease. History of AICD placement, appendicectomy, hysterectomy, cholecystectomy, bilateral carotid endarterectomy, ovarian cyst, stent to the left subclavian total of 4 stents. MEDICATIONS: The patient's home medications included tramadol p.r.n., midodrine 10 mg t.i.d., metoprolol 25 mg daily, 100 mg t.i.d., Lofibra 160 mg daily, Trulicity 0.75 mg daily, Lipitor 80 mg daily, baby aspirin once a day and Plavix 75 mg daily. PHYSICAL EXAMINATION: Physical examination at present reveals a 72-year-old female, who does not appear to be in any acute distress. She is alert and awake. The patient is afebrile. Blood pressure is 114/56 mmHg. Head/ENT examination is negative. Neck is supple. No significant increase in jugular venous pressure is noted. Both the carotid pulses are felt. There is no bruit. Chest is symmetrical. HEART: The PMI is not felt. First and second heart sounds are normal. There is grade 2/6 ejection systolic murmur noted. Lungs are clinically clear to auscultation and percussion. Abdomen is soft. EXTREMITIES: Peripheral pulses are not palpable. No significant leg edema is noted. The patient's EKG shows normal sinus rhythm with diffuse ST wave changes noted in the anterolateral leads. The patient had an echocardiogram done in October of 2017, which showed overall generalized hypokinesia with akinetic anteroapical and apical septal area suggestive of ischemic cardiomyopathy, ejection fraction was noted to be 20% to 25%. FINAL IMPRESSION: 1. This patient is admitted with recurrent episodes of syncope. The patient was hypotensive at the time of syncope. Patient does have an underlying placement of the AICD. 2. History of severe ischemic cardiomyopathy with ejection fraction of 20% to 25%. 3. Severe peripheral vascular disease. RECOMMENDATIONS: The patient is currently being hydrated. We will check for orthostatic changes. We will also start the patient on Florinef 0.1 mg daily and schedule her for a tilt-table test to see if there is any evidence of significant orthostatic hypotension. The patient's AICD will be interrogated. It is possible that some of the orthostatic hypotension is secondary to patient's diabetic neuropathy. MMODL / IJN: [id number] /
[2017-12-26] MEDS: FLUDROCORTISONE 0.1 MG TAB PO SCH (11:14)
[2017-12-26 11:39] LABS: Glucose,Whole Blood 184 mg/dL (75-99)
--- NOTE | 2017-12-26 14:13 | P.HPIM ---
History of Present Illness H&P Date: 12/26/17 Chief Complaint: Syncope This is a 72-year-old female patient of Dr. Azul, Dr. Lizama, Dr. Amezcua with a previous medical history significant for coronary artery disease status post coronary artery bypass graft with ischemic cardiomyopathy and percutaneous coronary intervention and a total of 4 stents placement last one was put in the LAD back in November 2014, AICD placement, cardiomyopathy EF 43%, CABG with ischemic heart disease, patent HA, saphenous vein graft to RCA, 100 % occluded circumflex with collaterals, recent echocardiogram revealed echo 20- 25% with severe global hypokinesia, moderate MR, moderate pulmonary hypertension October 2017 echocardiogram.history of left subclavian stenosis status post stenting, carotid artery disease status post bilateral carotid endarterectomies, severe peripheral arterial occlusive disease, vasculitis , severe PAD with recent endovascular placement of aortic stent for occlusive disease of the aorta, left iliac stent, fem-fem bypass with greater saphenous vein at [facility]. [facility] at [facility]. Patient had hospitalization December 19 through December 23 at which time she was treated for syncopal episode with multiple falls was found to be hypotensive with systolic of 66 status post fluid resuscitation. Gradually metipranolol was initiated. She was seen by cardiology and eliquis was discontinued and patient was to resume only aspirin and Plavix. Medications Imdur, lisinopril and Aldactone were discontinued for home at the time of discharge. Patient states that when she went home she believes she continued to take her blood pressure medications that were discontinued. She ended up having a fall when she was getting up off the commode. Her was standing behind her was able to help her but she had a full loss of consciousness. She is found her blood pressure 60/38. She has not had any nausea or vomiting. While transported to the hospital, patient also had an episode of passing out while with paramedics. EKG was sinus rhythm. Hemoglobin at 10.4, BUN 28 creatinine 1.7 and blood sugar 148. Troponin was negative. Urinalysis was negative for urinary tract infection. Patient was admitted to the selective care unit and cardiology consult requested. Review of Systems All systems: negative Constitutional: Denies chills, Denies fatigue, Denies fever, Denies poor appetite, Denies weight loss Eyes: denies blurred vision, denies pain Ears, nose, mouth and throat: Denies dysphagia, Denies headache, Denies mouth pain, Denies sore throat Cardiovascular: Reports lightheadedness, Reports syncope, Denies chest pain, Denies decreased exercise tolerance, Denies dyspnea on exertion, Denies leg edema, Denies shortness of breath Respiratory: Denies cough, Denies cough with sputum, Denies dyspnea, Denies excessive sputum, Denies hemoptysis, Denies home oxygen, Denies wheezing Gastrointestinal: Denies abdominal pain, Denies diarrhea, Denies nausea, Denies vomiting Genitourinary: Denies dysuria, Denies hematuria Musculoskeletal: Denies myalgias Integumentary: Denies pruritus, Denies rash Neurological: Denies numbness, Denies weakness Psychiatric: Denies anxiety, Denies depression Endocrine: Denies fatigue, Denies weight change Past Medical History Past Medical History: Coronary Artery Disease (CAD), Chest Pain / Angina, Heart Failure, CVA/TIA, Diabetes Mellitus, GERD/Reflux, Hyperlipidemia, Hypertension, Myocardial Infarction (RI), Osteoarthritis (OA), Syncope Additional Past Medical History / Comment(s): HX OF POLIO, PAD, ISCHEMIC CARDIOMYOPATHY., RT CATARACTS., USES WALKER. Last Myocardial Infarction Date:: 2012 History of Any Multi-Drug Resistant Organisms: None Reported Past Surgical History: AICD, Appendectomy, Section, Cholecystectomy, Coronary Bypass/CABG, Heart Catheterization, Heart Catheterization With Stent, Hysterectomy Additional Past Surgical History / Comment(s): ABIMBOLA CAROTID ENDARTERECTOMY., OVARIAN CYST., STENT LT SUBCLAVIAN - TOTAL 4 STENTS ., [employer] AICD. , LT CATARACT REMOVED, multi surgery in bilateral legs to open arteries to help with blood flow Past Anesthesia/Blood Transfusion Reactions: No Reported Reaction Date of Last Stent Placement:: 11/2014 Type of Cardiac Device: AICD Device Placement Date:: 2014 Past Psychological History: Anxiety, Depression Additional Psychological History / Comment(s): LIVES WITH SPOUSE, USES WALKER WHEN UP. DOES'NT DRIVE. 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 Smoking Status: Never smoker Past Alcohol Use History: None Reported Past Drug Use History: None Reported - Past Family History Father Family Medical History: Cancer Additional Family Medical History / Comment(s): pt. states her father had throat cancer Mother Family Medical History: Coronary Artery Disease (CAD), Hyperlipidemia, Hypertension Additional Family Medical History / Comment(s): CABG Medications and Allergies Home Medications Medication Instructions Recorded Confirmed Type Clopidogrel [Plavix] 75 mg PO DAILY@89911/22/14 12/25/17 History Cholecalciferol [Vitamin D3] 2,000 unit PO DAILY@89902/02/17 12/25/17 History DULoxetine HCL [Cymbalta] 60 mg PO DAILY@89902/02/17 12/25/17 History Lansoprazole [Prevacid] 30 mg PO DAILY@89902/02/17 12/25/17 History Multivitamins, Thera [Multivitamin 1 tab PO DAILY@89906/16/17 12/25/17 History (formulary)] Ubidecarenone [Co Q-10] 400 mg PO DAILY@89906/16/17 12/25/17 History Bifidobacterium Infantis [Align] 4 mg PO DAILY@89909/18/17 12/25/17 History Nitroglycerin Sl Tabs [Nitrostat] 0.4 mg SUBLINGUAL Q5M PRN 09/18/17 12/25/17 History Aspirin 81 mg PO DAILY@89910/31/17 12/25/17 History Atorvastatin [Lipitor] 80 mg PO HS@2100 10/31/17 12/25/17 History Calcium Carbonate 648mg 648 mg PO BID@10/31/17 12/25/17 History Dulaglutide [Trulicity] 0.75 mg SQ WE 10/31/17 12/25/17 History Fenofibrate [Lofibra] 160 mg PO DAILY@89910/31/17 12/25/17 History Gabapentin [Neurontin] 100 mg PO TID@0900,1200,1700 10/31/17 12/25/17 History INSULIN LISPRO (humaLOG) [humaLOG] 4 units SQ AC-TID@,,10/31/17 12/25/17 History INSULIN LISPRO (humaLOG) [humaLOG] See Protocol SQ ACHS 10/31/17 12/25/17 History Insulin Glargine [Lantus] 10 units SQ HS@2100 10/31/17 12/25/17 History Ketorolac 0.5% Ophth Soln [Acular 1 drops LEFT EYE BID 10/31/17 12/25/17 History 0.5%] Lifitegrast [Xiidra] 1 drop BOTH EYES BID 10/31/17 12/25/17 History traMADol HCL [Ultram] 50 mg PO Q4HR PRN #30 tablet 11/05/17 12/25/17 Rx Metoprolol Succinate (ER) [Toprol 25 mg PO DAILY #30 tab.er.24h 12/22/17 Rx XL] Midodrine [ProAmatine] 10 mg PO TID@0800,1300,1700 #180 12/22/17 12/25/17 Rx tab Allergies Allergy/AdvReac Type Severity Reaction Status Date / Time adhesive Allergy Itching Verified 12/25/17 12:06 codeine Allergy Hallucinati Verified 12/25/17 12:06 ons dipyridamole Allergy heart Verified 12/25/17 12:06 [From Persantine] stopped latex AdvReac Rash/Hives Verified 12/25/17 12:06 metformin AdvReac "passed Verified 12/25/17 12:06 out" Physical Exam Vitals: Vital Signs Temp Pulse Pulse Resp BP BP Pulse Ox 12/26/17 08:24 97.6 F 80 16 114/56 99 12/26/17 04:00 97.7 F 84 18 137/63 98 12/26/17 00:00 97.7 F 81 18 148/67 98 12/25/17 21:25 97.6 F 93 18 141/80 100 12/25/17 20:00 93 18 12/25/17 17:59 99.1 F 93 18 115/58 95 12/25/17 16:25 83 18 130/58 95 12/25/17 14:49 83 18 108/54 99 12/25/17 12:05 70 12/25/17 12:00 97.4 F L 75 16 111/53 100 Intake and Output 12/25/17 12/26/17 12/26/17 22:59 06:59 14:59 Other: Voiding Method Toilet Toilet Toilet Weight 58.4 kg General appearance: cooperative, no acute distress - EENT Eyes: anicteric sclerae, PERRLA, dentition normal, normal appearance ENT: NA/AT, normal oropharynx - Neck Neck: normal ROM - Respiratory Respiratory: bilateral: CTA, negative: diminished, dullness, rales, rhonchi - Cardiovascular Rhythm: regular Heart sounds: normal: S1, S2 Abnormal Heart Sounds: systolic murmur - Gastrointestinal General gastrointestinal: no absent bowel sounds, no decreased bowel sounds, no distended, no hepatomegaly, no hyperactive bowel sounds, normal bowel sounds, no organomegaly, no rigid, no scaphoid, soft, no splenomegaly, no tenderness, no umbilical hernia, no ventral hernia - Integumentary Integumentary: Significant. Periorbital ecchymosis with a current ecchymosis involving the forehead and the cheeks. No bleeding Neurologic Neurologic: CNII-XII intact - Musculoskeletal Musculoskeletal: generalized weakness, strength equal bilaterally - Psychiatric Psychiatric: A&O x's 3, appropriate affect, intact judgment & insight Results CBC & Chem 7: 12/25/17 12:25 12/25/17 12:25 Labs: Abnormal Lab Results - Last 24 Hours (Table) 12/25/17 12/25/17 12/25/17 Range/Units 12:23 12:25 12:25 Hgb 10.4 L (11.4-16.0) gm/dL Hct 33.1 L (34.0-46.0) % APTT (22.0-30.0) sec Sodium (137-145) mmol/L BUN (7-17) mg/dL Creatinine (0.52-1.04) mg/dL Glucose (74-99) mg/dL POC Glucose (mg/dL) 145 H (75-99) mg/dL Total Creatine Kinase 20 L (30-135) U/L Total Protein (6.3-8.2) g/dL Albumin (3.5-5.0) g/dL Urine Appearance (Clear) Urine Protein (Negative) Urine Glucose (UA) (Negative) Urine Bacteria (None) /hpf Hyaline Casts (0-2) /lpf Urine Mucus (None) /hpf 12/25/17 12/25/17 12/25/17 Range/Units 12:25 12:25 15:05 Hgb (11.4-16.0) gm/dL Hct (34.0-46.0) % APTT 21.9 L (22.0-30.0) sec Sodium 136 L (137-145) mmol/L BUN 28 H (7-17) mg/dL Creatinine 1.70 H (0.52-1.04) mg/dL Glucose 148 H (74-99) mg/dL POC Glucose (mg/dL) (75-99) mg/dL Total Creatine Kinase (30-135) U/L Total Protein 5.7 L (6.3-8.2) g/dL Albumin 3.4 L (3.5-5.0) g/dL Urine Appearance Cloudy H (Clear) Urine Protein Trace H (Negative) Urine Glucose (UA) 3+ H (Negative) Urine Bacteria Rare H (None) /hpf Hyaline Casts 14 H (0-2) /lpf Urine Mucus Rare H (None) /hpf 12/25/17 12/25/17 12/26/17 Range/Units 17:58 20:49 05:53 Hgb (11.4-16.0) gm/dL Hct (34.0-46.0) % APTT (22.0-30.0) sec Sodium (137-145) mmol/L BUN (7-17) mg/dL Creatinine (0.52-1.04) mg/dL Glucose (74-99) mg/dL POC Glucose (mg/dL) 249 H 236 H 147 H (75-99) mg/dL Total Creatine Kinase (30-135) U/L Total Protein (6.3-8.2) g/dL Albumin (3.5-5.0) g/dL Urine Appearance (Clear) Urine Protein (Negative) Urine Glucose (UA) (Negative) Urine Bacteria (None) /hpf Hyaline Casts (0-2) /lpf Urine Mucus (None) /hpf Thrombosis Risk Factor Assmnt - DVT/VTE Prophylaxis DVT/VTE Prophylaxis: Pharmacologic Prophylaxis ordered - Choose All That Apply Each Risk Factor Represents 2 Points: Age 61-74 years Thrombosis Risk Factor Assessment Total Risk Factor Score: 2 Thrombosis Risk Factor Assessment Level: Low Risk Assessment and Plan Plan: 1. Recurrent syncope, with multiple falls, and head concussion last week, multiples, bruises in the facial structures, secondary to orthostatic hypotension. Patient did not stop blood pressure medications as advised from last discharge. On last admission, the following medications were discontinued : Imdur, lisinopril, spironolactone; 5 medications were changed metoprolol XL from 100 mg to 25 daily and admitted during 5 mg increased to 10 mg 3 times daily. Continue Midodrine 10 mg 3 times daily. Cardiology has added and Florinef 0.1 mg daily. 2. CKD stage II, monitor for renal hypoperfusion related to hypovolemia, maintain fluid resuscitation, 3. CAD post CABG and stent placements with ischemic cardiopathy post AICD. 4. Severe PAD post evaluation by vascular surgery status post recent endovascular placement of aortic stent for occlusive disease of the aorta, left iliac stent, and fem-fem bypass with great saphenous vein at [facility]. Continue Plavix 75 mg daily. 5. Carotid artery disease status post carotid endarterectomies. Continue with aspirin, Plavix, Lipitor for secondary prevention. 6. Uncontrolled diabetes mellitus type 2 with PVD, peripheral neuropathy. Continue Levemir 10 units at bedtime, NovoLog 9, 12 and 17 units with meals, NovoLog scale. 7. Hypertension and hypertensive cardiovascular disease. Continue metoprolol XL 25 mg daily. 8. Hyperlipidemia. Continue patient on Lipitor 80 mg orally once every day. 9. History of left subclavian stenosis. Post stenting. Stable at this time. 10. History of GERD. Continue Protonix. 11. Vitamin D deficiency. Continue patient on vitamin D 1000 units once every day. 12. Recurrent depression. Continue Cymbalta 60 mg orally once every day. 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 14. History of left subclavian stenosis status post stenting. 15. Spinal stenosis L3-L4, L4-L5, severe R L3-L4 area with moderate severe spinal stenosis posterior disc bulging with facet arthropathy, based on CAT scan 09/20/2017 physical therapy. DVT prophylaxis. GI prophylaxis. Continue PPI. Patient will be admitted to the hospital for a minimal of 2 night stay. Discharge plan:home with home care. Impression and plan of care have been directed as dictated by the signing physician. Edie Martinez nurse practitioner acting as scribe for signing physician.
--- NOTE | 2017-12-26 16:17 | CDI ---
Last Revision, April 2017 Documentation Clarification Form Date: 12/26/17 From: Cassi Jackman RN, CCDS Admit Date: 12/25/2017 5:26:00 PM Patient Name: Caren Colon Visit Number: [id number] Discharge Date: ATTENTION: The Clinical Documentation Specialists (CDI) and [facility] Coding Staff appreciate your assistance in clarifying documentation. Please respond to the clarification below the line at the bottom and electronically sign. The CDI & [facility] Coding staff will review the response and follow-up if needed. Please note: Queries are made part of the Legal Health Record. If you have any questions, please contact the author of this message via ITS. Marito Crowder MD H&P documentation has uncontrolled diabetes mellitus type 2 with PVD, peripheral neuropathy History/Risk Factors: DM type 2, Hypertension/Hypertensive cardiovascular disease, CKD stage II Clinical Indicators: Present with recurrent syncope episode ,with multiple falls. Glucose Readings: 145, 249, 236, 147, 184 Treatment: Levemir, Novolog, per orders and scale Monitor Blood sugar In order to capture the severity of Illness and necessary documentation specificity, please further clarify uncontrolled diabetes mellitus type 2: Hyperglycemia Hypoglycemia Other, please specify Unable to Determine Please continue to document in your progress notes and discharge summary in order to capture severity of illness and risk of mortality. Include clinical findings that support your diagnosis. MTDD
[2017-12-26 16:33] LABS: Glucose,Whole Blood 106 mg/dL (75-99)
[2017-12-26 20:55] LABS: Glucose,Whole Blood 140 mg/dL (75-99)
[2017-12-27] MEDS: SODIUM CHLORIDE 0.9% 1,000 ML IV SCH ×3 (01:48→20:49)
[2017-12-27] MEDS: traMADol 50 MG TAB PO PRN (04:43)
[2017-12-27 05:47] LABS: Glucose,Whole Blood 155 mg/dL (75-99)
[2017-12-27] MEDS: INSULIN ASPART 100 UNIT/ML 1 ML 10 ML VIAL SQ SCH ×7 (06:31→20:43)
[2017-12-27] MEDS: CHOLECALCIFEROL 1,000 UNIT TAB PO SCH (08:20)
[2017-12-27] MEDS: LACTOBACILLUS ACIDOPH & BULGAR 1 EACH PACKET PO SCH (08:20)
[2017-12-27] MEDS: CALCIUM CARBONATE 500 MG CHEWABLE PO SCH ×2 (08:20→20:45)
[2017-12-27] MEDS: ASPIRIN 81 MG PO SCH (08:21)
[2017-12-27] MEDS: MIDODRINE 5 MG TAB PO SCH ×3 (08:21→16:27)
[2017-12-27] MEDS: PANTOPRAZOLE 40 MG TABLET PO SCH (08:21)
[2017-12-27] MEDS: DULoxetine HCL 60 MG CAPSULE.DR PO SCH (08:21)
[2017-12-27] MEDS: CLOPIDOGREL 75 MG TAB PO SCH (08:21)
[2017-12-27] MEDS: KETOROLAC 0.5% OPHTH DROPS 5 ML BTL LEFT EYE SCH ×2 (08:21→20:45)
[2017-12-27] MEDS: MULTIVITAMINS, THERA 1 EACH TAB PO SCH (08:21)
[2017-12-27] MEDS: FLUDROCORTISONE 0.1 MG TAB PO SCH (08:21)
[2017-12-27] MEDS: FENOFIBRATE 160 MG TAB PO SCH (08:21)
[2017-12-27] MEDS: METOPROLOL SUCCINATE (ER) 25 MG TAB.ER.24H PO SCH (08:21)
[2017-12-27] MEDS: HEPARIN SODIUM,PORCINE 5,000 UNIT/ML 1 ML VIAL SQ SCH ×3 (08:21→23:30)
[2017-12-27] MEDS: GABAPENTIN 100 MG CAP PO SCH ×3 (08:21→16:27)
[2017-12-27] MEDS: NON-FORMULARY DRUG (Lifitegrast [Xiidra] 1 DROP) BOTH EYES SCH ×2 (08:22→20:46)
--- NOTE | 2017-12-27 09:52 | P.PN ---
Subjective Progress Note Date: 12/27/17 Principal diagnosis: Syncope and fall Patient continued to be hemodynamically stable overnight, her blood pressure was within normal range after holding her blood pressure medication, patient is denying chest pain, shortness breath, nausea, vomiting, dumping, dizziness, lightheadedness or blurry vision. Objective - Vital Signs Vital signs: Vital Signs Temp 97.7 F 12/27/17 08:25 Pulse 80 12/27/17 08:25 Resp 17 12/27/17 08:25 BP 118/50 12/27/17 08:25 Pulse Ox 95 12/27/17 08:25 Intake & Output 12/26/17 12/27/17 12/27/17 18:59 06:59 18:59 Intake Total 720 60 Balance 720 60 Weight 58.2 kg Intake: IV 60 Sodium Chloride 0.9% 1, 60 000 ml @ 20 mls/hr IV . Q24H NOE Rx#:[id number] Oral 720 Other: Voiding Method Toilet Toilet Toilet # Voids 1 1 - Exam Gen.: in stated age, no acute distress Heart: Normal S1-S2 Lungs: Clear to auscultation bilaterally Abdomen: Soft, no tenderness, positive bowel sounds in all 4 quadrant no guarding or rebound Skin: No new rash, multiple bruises on the face with small hematoma on the left front had without obvious bleeding Psych: Alert and oriented 3 Neuro: No focal deficit - Labs CBC & Chem 7: 12/25/17 12:25 12/25/17 12:25 Labs: Abnormal Lab Results - Last 24 Hours (Table) 12/26/17 12/26/17 12/26/17 Range/Units 11:37 16:28 20:53 POC Glucose (mg/dL) 184 H 106 H 140 H (75-99) mg/dL 12/27/17 Range/Units 05:46 POC Glucose (mg/dL) 155 H (75-99) mg/dL Assessment and Plan Assessment: 1. Syncope. 2. Profound hypotension. 3. Dehydration. 4. Mismanagement for medication at home. 5. Severe ischemic cardiomyopathy with ejection fraction 25% status post AICD placement. 6. Diabetes mellitus type 2. 7. Peripheral neuropathy. 8. Chronic kidney disease stage II. 9. Peripheral arterial disease status post intervention in the past. 10. Hyperlipidemia. 11. GERD. 12. Debility and deconditioning. Patient stated that she was rejected by rehab on prior admission and hoping that she can go home to stay with her independently. Cardiology ordered a tilt table test and we will follow-up on test results we would continue holding blood pressure medication, continue gentle hydration, monitor vital signs closely, repeat blood work in the morning and have physical and acute patient will therapy evaluated the patient and follow-up with the recommendation regarding discharge planning
[2017-12-27 11:54] LABS: Glucose,Whole Blood 264 mg/dL (75-99)
[2017-12-27 12:30] LABS: Hemoglobin A1C 7.1 % (4.0-6.0)
[2017-12-27 17:54] LABS: Glucose,Whole Blood 152 mg/dL (75-99)
[2017-12-27 20:40] LABS: Glucose,Whole Blood 102 mg/dL (75-99)
[2017-12-27] MEDS: INSULIN DETEMIR 100 UNIT/ML 10 ML VIAL SQ SCH (20:45)
[2017-12-27] MEDS: ATORVASTATIN 80 MG TAB PO SCH (20:45)
[2017-12-28] MEDS: traMADol 50 MG TAB PO PRN ×2 (00:22→05:45)
--- NOTE | 2017-12-28 03:54 | PN ---
PROGRESS NOTE This patient was admitted with syncope. The patient was noticed to be hypotensive at the time of syncope. The patient is feeling better. Denies any dizziness or lightheadedness. There is no evidence of any orthostatic hypotension. Patient was started on Florinef 0.1 mg daily. In view of this, patient's recurrent episodes of fall and syncope, patient is going to be evaluated with a tilt-table test on Friday. MMODL / IJN: [id number] /
[2017-12-28 07:15] LABS: Glucose,Whole Blood 127 mg/dL (75-99)
[2017-12-28] MEDS: INSULIN ASPART 100 UNIT/ML 1 ML 10 ML VIAL SQ SCH ×7 (07:53→21:48)
[2017-12-28] MEDS: LACTOBACILLUS ACIDOPH & BULGAR 1 EACH PACKET PO SCH (08:13)
[2017-12-28] MEDS: PANTOPRAZOLE 40 MG TABLET PO SCH (08:14)
[2017-12-28] MEDS: NON-FORMULARY DRUG (Lifitegrast [Xiidra] 1 DROP) BOTH EYES SCH ×2 (08:14→21:49)
[2017-12-28] MEDS: CALCIUM CARBONATE 500 MG CHEWABLE PO SCH ×2 (08:15→21:58)
[2017-12-28] MEDS: FLUDROCORTISONE 0.1 MG TAB PO SCH (08:15)
[2017-12-28] MEDS: CHOLECALCIFEROL 1,000 UNIT TAB PO SCH (08:15)
[2017-12-28] MEDS: CLOPIDOGREL 75 MG TAB PO SCH (08:15)
[2017-12-28] MEDS: FENOFIBRATE 160 MG TAB PO SCH (08:15)
[2017-12-28] MEDS: MIDODRINE 5 MG TAB PO SCH ×3 (08:15→17:18)
[2017-12-28] MEDS: ASPIRIN 81 MG PO SCH (08:15)
[2017-12-28] MEDS: METOPROLOL SUCCINATE (ER) 25 MG TAB.ER.24H PO SCH (08:15)
[2017-12-28] MEDS: GABAPENTIN 100 MG CAP PO SCH ×3 (08:15→17:19)
[2017-12-28] MEDS: DULoxetine HCL 60 MG CAPSULE.DR PO SCH (08:15)
[2017-12-28] MEDS: HEPARIN SODIUM,PORCINE 5,000 UNIT/ML 1 ML VIAL SQ SCH ×2 (08:16→17:18)
[2017-12-28] MEDS: SODIUM CHLORIDE 0.9% 1,000 ML IV SCH ×3 (08:16→21:41)
[2017-12-28] MEDS: KETOROLAC 0.5% OPHTH DROPS 5 ML BTL LEFT EYE SCH ×2 (09:35→21:49)
[2017-12-28 12:06] LABS: Glucose,Whole Blood 120 mg/dL (75-99)
[2017-12-28] MEDS: MULTIVITAMINS, THERA 1 EACH TAB PO SCH (12:35)
[2017-12-28 17:26] LABS: Glucose,Whole Blood 98 mg/dL (75-99)
--- NOTE | 2017-12-28 19:04 | P.PN ---
Subjective Progress Note Date: 12/28/17 Principal diagnosis: Syncope and fall Patient continued to be hemodynamically stable overnight, patient is denying any syncopal episode and said that she has been up ambulating without dizziness or lightheadedness tolerating diet without difficulty, patient is denying chest pain, shortness breath, nausea, vomiting, dumping, dizziness, lightheadedness or blurry vision. Objective - Vital Signs Vital signs: Vital Signs Temp 98.1 F 12/28/17 16:00 Pulse 69 12/28/17 16:20 Resp 20 12/28/17 16:20 BP 150/70 12/28/17 16:00 Pulse Ox 97 12/28/17 15:29 Intake & Output 12/28/17 12/28/17 12/29/17 06:59 18:59 06:59 Intake Total 360 240 Balance 360 240 Intake: IV 240 Sodium Chloride 0.9% 1, 240 000 ml @ 20 mls/hr IV . Q24H NOE Rx#:[id number] Oral 120 240 Other: Voiding Method Toilet Toilet # Voids 1 2 # Bowel Movements 1 - Exam Gen.: in stated age, no acute distress Heart: Normal S1-S2 Lungs: Clear to auscultation bilaterally Abdomen: Soft, no tenderness, positive bowel sounds in all 4 quadrant no guarding or rebound Skin: No new rash, multiple bruises on the face with small hematoma on the left front had without obvious bleeding Psych: Alert and oriented 3 Neuro: No focal deficit - Labs CBC & Chem 7: 12/25/17 12:25 12/25/17 12:25 Labs: Abnormal Lab Results - Last 24 Hours (Table) 12/25/17 12/27/17 12/28/17 Range/Units 12:25 20:38 07:14 POC Glucose (mg/dL) 102 H 127 H (75-99) mg/dL Hemoglobin A1c 7.1 H (4.0-6.0) % 12/28/17 Range/Units 12:05 POC Glucose (mg/dL) 120 H (75-99) mg/dL Hemoglobin A1c (4.0-6.0) % Assessment and Plan Assessment: 1. Syncope. 2. Profound hypotension. 3. Dehydration. 4. Mismanagement for medication at home. 5. Severe ischemic cardiomyopathy with ejection fraction 25% status post AICD placement. 6. Diabetes mellitus type 2. 7. Peripheral neuropathy. 8. Chronic kidney disease stage II. 9. Peripheral arterial disease status post intervention in the past. 10. Hyperlipidemia. 11. GERD. 12. Debility and deconditioning. Patient improved dramatically since we held her blood pressure medication and currently patient is normotensive I would like to keep patients over night and monitor vital signs closely consider discharging in the morning after finishing her tilt table test
[2017-12-28 20:29] LABS: Glucose,Whole Blood 141 mg/dL (75-99)
[2017-12-28] MEDS: ATORVASTATIN 80 MG TAB PO SCH (21:48)
[2017-12-28] MEDS: INSULIN DETEMIR 100 UNIT/ML 10 ML VIAL SQ SCH (21:49)
[2017-12-28 22:51] VITALS: RESP 16
[2017-12-29] MEDS: HEPARIN SODIUM,PORCINE 5,000 UNIT/ML 1 ML VIAL SQ SCH ×2 (00:27→08:05)
[2017-12-29 07:15] LABS: Glucose,Whole Blood 138 mg/dL (75-99)
[2017-12-29] MEDS: INSULIN ASPART 100 UNIT/ML 1 ML 10 ML VIAL SQ SCH ×4 (08:05→12:22)
[2017-12-29] MEDS: MIDODRINE 5 MG TAB PO SCH ×2 (08:06→12:22)
[2017-12-29] MEDS: CHOLECALCIFEROL 1,000 UNIT TAB PO SCH (08:06)
[2017-12-29] MEDS: ASPIRIN 81 MG PO SCH (08:06)
[2017-12-29] MEDS: DULoxetine HCL 60 MG CAPSULE.DR PO SCH (08:06)
[2017-12-29] MEDS: MULTIVITAMINS, THERA 1 EACH TAB PO SCH (08:06)
[2017-12-29] MEDS: CLOPIDOGREL 75 MG TAB PO SCH (08:06)
[2017-12-29] MEDS: METOPROLOL SUCCINATE (ER) 25 MG TAB.ER.24H PO SCH (08:06)
[2017-12-29] MEDS: PANTOPRAZOLE 40 MG TABLET PO SCH (08:06)
[2017-12-29] MEDS: GABAPENTIN 100 MG CAP PO SCH ×2 (08:06→16:22)
[2017-12-29] MEDS: CALCIUM CARBONATE 500 MG CHEWABLE PO SCH (08:06)
[2017-12-29] MEDS: FLUDROCORTISONE 0.1 MG TAB PO SCH (08:07)
[2017-12-29] MEDS: KETOROLAC 0.5% OPHTH DROPS 5 ML BTL LEFT EYE SCH (08:08)
[2017-12-29] MEDS: SODIUM CHLORIDE 0.9% 1,000 ML IV SCH ×2 (08:09→08:10)
[2017-12-29] MEDS: NON-FORMULARY DRUG (Lifitegrast [Xiidra] 1 DROP) BOTH EYES SCH (08:09)
[2017-12-29] MEDS: LACTOBACILLUS ACIDOPH & BULGAR 1 EACH PACKET PO SCH (08:10)
[2017-12-29] MEDS: FENOFIBRATE 160 MG TAB PO SCH (09:36)
[2017-12-29 11:13] LABS: Glucose,Whole Blood 150 mg/dL (75-99)
[2017-12-29 11:55] VITALS: BP 139/68; PULSE 69; TEMP 98.6
[2017-12-29] MEDS ORDERED: SODIUM CHLORIDE 0.9% 500 ML IV ONE (14:58)
--- NOTE | 2017-12-30 12:24 | P.PCN ---
Preoperative Diagnosis: Indication for the procedure Recurrent syncope Twelve-lead ECG shows sinus rhythm normal OK narrow QRS T-wave inversions in the lateral precordial leads normal QT interval Tilt table test per protocol Baseline blood pressure 183/83 mmHg patient was tilted upright at an angle of 70 per protocol There was about a 10-20 mm drop in blood pressure almost immediately without any symptoms but thereafter the blood pressure remained in the 150-160s systolic and heart rates remained in the 80s And she was laid supine a blood pressure increased to 186/84 mmHg Impression mild 20 mm orthostatic drop in blood pressure without any symptoms but no evidence for any other changes in the upright position
--- NOTE | 2017-12-30 15:02 | P.DS ---
Providers Date of admission: 12/25/17 17:26 Expected date of discharge: 12/29/17 Attending physician: Marito Polanco MD Consults: 12/26/17 14:00 Consult Physician Routine Consulting Provider: Maia Graves Consult Reason/Comments: syncope, did not stop meds as advised from last discharge Do you want consulting provider notified?: Yes Primary care physician: Vladimir Azul [facility] Course: This is a 72-year-old female patient of Dr. Azul, Dr. Lizama, Dr. Amezcua with a previous medical history significant for coronary artery disease status post coronary artery bypass graft with ischemic cardiomyopathy and percutaneous coronary intervention and a total of 4 stents placement last one was put in the LAD back in November 2014, AICD placement, cardiomyopathy EF 43%, CABG with ischemic heart disease, patent HA, saphenous vein graft to RCA, 100 % occluded circumflex with collaterals, recent echocardiogram revealed echo 20- 25% with severe global hypokinesia, moderate MR, moderate pulmonary hypertension October 2017 echocardiogram.history of left subclavian stenosis status post stenting, carotid artery disease status post bilateral carotid endarterectomies, severe peripheral arterial occlusive disease, vasculitis , severe PAD with recent endovascular placement of aortic stent for occlusive disease of the aorta, left iliac stent, fem-fem bypass with greater saphenous vein at [facility]. [facility] at [facility]. Patient had hospitalization December 19 through December 23 at which time she was treated for syncopal episode with multiple falls was found to be hypotensive with systolic of 66 status post fluid resuscitation. Gradually metipranolol was initiated. She was seen by cardiology and eliquis was discontinued and patient was to resume only aspirin and Plavix. Medications Imdur, lisinopril and Aldactone were discontinued for home at the time of discharge. Patient states that when she went home she believes she continued to take her blood pressure medications that were discontinued. She ended up having a fall when she was getting up off the commode. Her was standing behind her was able to help her but she had a full loss of consciousness. She is found her blood pressure 60/38. She has not had any nausea or vomiting. While transported to the hospital, patient also had an episode of passing out while with paramedics. EKG was sinus rhythm. Hemoglobin at 10.4, BUN 28 creatinine 1.7 and blood sugar 148. Troponin was negative. Urinalysis was negative for urinary tract infection. Patient was admitted to the selective care unit and cardiology consult requested. 12/27: Patient continued to be hemodynamically stable overnight, her blood pressure was within normal range after holding her blood pressure medication, patient is denying chest pain, shortness breath, nausea, vomiting, dumping, dizziness, lightheadedness or blurry vision. 12/28: Patient continued to be hemodynamically stable overnight, patient is denying any syncopal episode and said that she has been up ambulating without dizziness or lightheadedness tolerating diet without difficulty, patient is denying chest pain, shortness breath, nausea, vomiting, dumping, dizziness, lightheadedness or blurry vision. 12/29: Patient continues to be hemodynamically stable. She has a ganglion in her room with walker denies any lightheadedness or dizziness. She underwent a tilt table test that showed a mild 20 mm orthostatic drop in her blood pressure without any symptoms but no evidence of any other changes in the upright position. She will be discharged home today in stable condition. She was started on Florinef at the time of admission by cardiology which will be continued for home. Discharge diagnoses: 1. Recurrent syncope, with multiple falls, and head concussion last week, multiple bruises in the facial structures, secondary to orthostatic hypotension. In this admission, secondary to noncompliance as patient did not stop blood pressure medications as advised from last discharge. 2. CKD stage II 3. CAD post CABG and stent placements with ischemic cardiopathy post AICD. 4. Severe PAD post evaluation by vascular surgery status post recent endovascular placement of aortic stent for occlusive disease of the aorta, left iliac stent, and fem-fem bypass with great saphenous vein at [facility]. 5. Carotid artery disease status post carotid endarterectomies. 6. Uncontrolled diabetes mellitus type 2 with PVD, peripheral neuropathy hyperglycemia. 7. Hypertension and hypertensive cardiovascular disease. 8. Hyperlipidemia. 9. History of left subclavian stenosis. Post stenting. 10. History of GERD. 11. Vitamin D deficiency. 12. Recurrent depression. 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 14. History of left subclavian stenosis status post stenting. 15. Spinal stenosis L3-L4, L4-L5, severe R L3-L4 area with moderate severe spinal stenosis posterior disc bulging with facet arthropathy, based on CAT scan 09/20/2017 physical therapy. Discharge plan: home with [facility]. Impression and plan of care have been directed as dictated by the signing physician. Edie Martinez nurse practitioner acting as scribe for signing physician. Patient Condition at Discharge: Good Plan - Discharge Summary Discharge Rx Participant: Yes New Discharge Prescriptions: New Fludrocortisone [Florinef] 0.1 mg PO DAILY #30 tab Continue Clopidogrel [Plavix] 75 mg PO DAILY@0900 Lansoprazole [Prevacid] 30 mg PO DAILY@0900 DULoxetine HCL [Cymbalta] 60 mg PO DAILY@0900 Cholecalciferol [Vitamin D3] 2,000 unit PO DAILY@0900 Multivitamins, Thera [Multivitamin (formulary)] 1 tab PO DAILY@0900 Ubidecarenone [Co Q-10] 400 mg PO DAILY@0900 Nitroglycerin Sl Tabs [Nitrostat] 0.4 mg SUBLINGUAL Q5M PRN PRN Reason: Chest Pain Bifidobacterium Infantis [Align] 4 mg PO DAILY@0900 Lifitegrast [Xiidra] 1 drop BOTH EYES BID Dulaglutide [Trulicity] 0.75 mg SQ WE Ketorolac 0.5% Ophth Soln [Acular 0.5%] 1 drops LEFT EYE BID INSULIN LISPRO (humaLOG) [humaLOG] 4 units SQ AC-TID@09,,17 Insulin Glargine [Lantus] 10 units SQ HS@2100 INSULIN LISPRO (humaLOG) [humaLOG] See Protocol SQ ACHS Gabapentin [Neurontin] 100 mg PO TID@0900,1200,1700 Fenofibrate [Lofibra] 160 mg PO DAILY@0900 Calcium Carbonate 648mg 648 mg PO BID@09,21 Atorvastatin [Lipitor] 80 mg PO HS@2100 Aspirin 81 mg PO DAILY@0900 traMADol HCL [Ultram] 50 mg PO Q4HR PRN #30 tablet PRN Reason: Pain Metoprolol Succinate (ER) [Toprol XL] 25 mg PO DAILY #30 tab.er.24h Midodrine [ProAmatine] 10 mg PO TID@0800,1300,1700 #180 tab Discharge Medication List Clopidogrel [Plavix] 75 mg PO DAILY@0900 11/22/14 [History] Cholecalciferol [Vitamin D3] 2,000 unit PO DAILY@89902/02/17 [History] DULoxetine HCL [Cymbalta] 60 mg PO DAILY@89902/02/17 [History] Lansoprazole [Prevacid] 30 mg PO DAILY@89902/02/17 [History] Multivitamins, Thera [Multivitamin (formulary)] 1 tab PO DAILY@89906/16/17 [ History] Ubidecarenone [Co Q-10] 400 mg PO DAILY@89906/16/17 [History] Bifidobacterium Infantis [Align] 4 mg PO DAILY@89909/18/17 [History] Nitroglycerin Sl Tabs [Nitrostat] 0.4 mg SUBLINGUAL Q5M PRN 09/18/17 [History] Aspirin 81 mg PO DAILY@89910/31/17 [History] Atorvastatin [Lipitor] 80 mg PO HS@209910/31/17 [History] Calcium Carbonate 648mg 648 mg PO BID@10/31/17 [History] Dulaglutide [Trulicity] 0.75 mg SQ WE 10/31/17 [History] Fenofibrate [Lofibra] 160 mg PO DAILY@89910/31/17 [History] Gabapentin [Neurontin] 100 mg PO TID@0900,1200,1700 10/31/17 [History] INSULIN LISPRO (humaLOG) [humaLOG] 4 units SQ AC-TID@,,17 10/31/17 [History] INSULIN LISPRO (humaLOG) [humaLOG] See Protocol SQ ACHS 10/31/17 [History] Insulin Glargine [Lantus] 10 units SQ HS@2100 10/31/17 [History] Ketorolac 0.5% Ophth Soln [Acular 0.5%] 1 drops LEFT EYE BID 10/31/17 [History] Lifitegrast [Xiidra] 1 drop BOTH EYES BID 10/31/17 [History] traMADol HCL [Ultram] 50 mg PO Q4HR PRN #30 tablet 11/05/17 [Rx] Metoprolol Succinate (ER) [Toprol XL] 25 mg PO DAILY #30 tab.er.24h 12/22/17 [Rx ] Midodrine [ProAmatine] 10 mg PO TID@0800,1300,1700 #180 tab 12/22/17 [Rx] Fludrocortisone [Florinef] 0.1 mg PO DAILY #30 tab 12/29/17 [Rx] Follow up Appointment(s)/Referral(s): Vladimir Azul MD [Primary Care Provider] - 01/01/18 4:30 pm Patient Instructions/Handouts: Fludrocortisone Acetate (By mouth), Dehydration (DC), Syncope (DC) Activity/Diet/Wound Care/Special Instructions: Home Care [facility] - [phone] Discharge Disposition: HOME WITH HOME HEALTH SERVICES
[2017-12-31] MEDS ORDERED: NON-FORMULARY DRUG (Dulaglutide [Trulicity] 0.75 MG) SQ SCH (09:00)
== END 2017-12-29 16:23 | disposition home health service (06) | DRG 312 ==
LOC: EC 11:50 → 6SEL 17:26 → 5MS5E 12-27 12:23
PROVIDERS: ADMIT Internal Medicine; ATTEND Internal Medicine
PROC: 4A03XB1 Measurement of Arterial Pressure, Peripheral, External Approach (ICD-10-PCS; 2017-12-29)
PROC: 4A02XFZ Measurement of Cardiac Rhythm, External Approach (ICD-10-PCS; principal; 2017-12-29 14:30)
DX: I95.2 Hypotension due to drugs (principal); S06.0X9A Concussion with loss of consciousness of unspecified duration, initial encounter; F33.9 Major depressive disorder, recurrent, unspecified; I13.0 Hypertensive heart and chronic kidney disease with heart failure and stage 1 through stage 4 chronic kidney disease, or unspecified chronic kidney disease; E11.22 Type 2 diabetes mellitus with diabetic chronic kidney disease; E11.42 Type 2 diabetes mellitus with diabetic polyneuropathy; E86.0 Dehydration; E11.65 Type 2 diabetes mellitus with hyperglycemia; E11.51 Type 2 diabetes mellitus with diabetic peripheral angiopathy without gangrene; I27.20 Pulmonary hypertension, unspecified; I50.9 Heart failure, unspecified; I25.5 Ischemic cardiomyopathy; T46.5X5A Adverse effect of other antihypertensive drugs, initial encounter; N18.2 Chronic kidney disease, stage 2 (mild); E78.5 Hyperlipidemia, unspecified; R40.2142 Coma scale, eyes open, spontaneous, at arrival to emergency department; R40.2362 Coma scale, best motor response, obeys commands, at arrival to emergency department; R40.2252 Coma scale, best verbal response, oriented, at arrival to emergency department; I77.6 Arteritis, unspecified; E55.9 Vitamin D deficiency, unspecified; I70.8 Atherosclerosis of other arteries; M19.91 Primary osteoarthritis, unspecified site; I25.10 Atherosclerotic heart disease of native coronary artery without angina pectoris; M48.061 Spinal stenosis, lumbar region without neurogenic claudication; M47.816 Spondylosis without myelopathy or radiculopathy, lumbar region; R29.6 Repeated falls; K21.9 Gastro-esophageal reflux disease without esophagitis; I25.2 Old myocardial infarction; F41.9 Anxiety disorder, unspecified; H26.9 Unspecified cataract; Z91.19 Patient's noncompliance with other medical treatment and regimen; Z79.82 Long term (current) use of aspirin; Z79.02 Long term (current) use of antithrombotics/antiplatelets; Z79.4 Long term (current) use of insulin; Z79.899 Other long term (current) drug therapy; Z95.1 Presence of aortocoronary bypass graft; Z95.5 Presence of coronary angioplasty implant and graft; Z95.810 Presence of automatic (implantable) cardiac defibrillator; Z90.49 Acquired absence of other specified parts of digestive tract; Z86.12 Personal history of poliomyelitis; Z90.710 Acquired absence of both cervix and uterus; Z86.73 Personal history of transient ischemic attack (TIA), and cerebral infarction without residual deficits; Z95.828 Presence of other vascular implants and grafts; Z98.42 Cataract extraction status, left eye; Z91.040 Latex allergy status; Z88.5 Allergy status to narcotic agent; Z88.8 Allergy status to other drugs, medicaments and biological substances; Z91.048 Other nonmedicinal substance allergy status; W18.11XA Fall from or off toilet without subsequent striking against object, initial encounter; Y92.002 Bathroom of unspecified non-institutional (private) residence as the place of occurrence of the external cause; Z80.8 Family history of malignant neoplasm of other organs or systems; Z82.49 Family history of ischemic heart disease and other diseases of the circulatory system; Z83.49 Family history of other endocrine, nutritional and metabolic diseases
CPT/HCPCS: 36415; 70450; 71046; 80053; 81001; 82550; 82553; 83036; 83735; 84484; 85025; 85610; 85730; 93005; 93660; 96360; 96361; 99285

== ENCOUNTER 2018-04-07 20:00 | Inpatient (IN) | payer MEDICARE, OTHER ==
[2018-04-07] MEDS ORDERED: SODIUM CHLORIDE 0.9% 1,000 ML IV STA ×3 (20:23→21:43)
--- NOTE | 2018-04-07 20:23 | ED ---
Weakness HPI - General Stated complaint: Weakness/NeckPain Time Seen by Provider: 04/07/18 20:22 Source: RN notes reviewed, old records reviewed Mode of arrival: EMS Limitations: altered mental status - History of Present Illness Initial comments: This is a 73-year-old female the ER for evaluation of altered mental status, not acting appropriately per family. Patient has significant medical history, arterial disease atherosclerosis. Patient was weak all day laid down for nap and woke up significantly altered, family noted patient did may have been warm or had chills, patient herself denies any specific complaint currently. She is brought in by EMS history obtained by EMS and patient was having right-sided weakness with altered mental status and confusion per family MD Complaint: generalized weakness, focal weakness -: hour(s) (6) - Related Data Home Medications Medication Instructions Recorded Confirmed Clopidogrel [Plavix] 75 mg PO DAILY@89911/22/14 04/07/18 DULoxetine HCL [Cymbalta] 60 mg PO DAILY@89902/02/17 04/07/18 Lansoprazole [Prevacid] 30 mg PO DAILY@89902/02/17 04/07/18 Multivitamins, Thera [Multivitamin 1 tab PO DAILY@89906/16/17 04/07/18 (formulary)] Ubidecarenone [Co Q-10] 400 mg PO DAILY@89906/16/17 04/07/18 Bifidobacterium Infantis [Align] 4 mg PO DAILY@89909/18/17 04/07/18 Nitroglycerin Sl Tabs [Nitrostat] 0.4 mg SUBLINGUAL Q5M PRN 09/18/17 04/07/18 Calcium Carbonate 648mg 648 mg PO BID@,10/31/17 04/07/18 Dulaglutide [Trulicity] 0.75 mg SQ WE 10/31/17 04/07/18 Fenofibrate [Lofibra] 160 mg PO DAILY@89910/31/17 04/07/18 Gabapentin [Neurontin] 100 mg PO TID@0900,1200,1700 10/31/17 04/07/18 INSULIN LISPRO (humaLOG) [humaLOG] 4 units SQ AC-TID@,12,10/31/17 04/07/18 INSULIN LISPRO (humaLOG) [humaLOG] See Protocol SQ ACHS 10/31/17 04/07/18 Insulin Glargine [Lantus] 10 units SQ HS@2100 10/31/17 04/07/18 Ketorolac 0.5% Ophth Soln [Acular 1 drops LEFT EYE BID 10/31/17 04/07/18 0.5%] Lifitegrast [Xiidra] 1 drop BOTH EYES BID 10/31/17 04/07/18 Acetaminophen/Diphenhydramine 1 - 2 tab PO HS 04/07/18 04/07/18 [Tylenol PM 500-25mg] Aspirin EC [Ecotrin Low Dose] 81 mg PO DAILY 04/07/18 04/07/18 Atorvastatin [Lipitor] 80 mg PO HS 04/07/18 04/07/18 Cholecalciferol (Vitamin D3) 2,000 unit PO DAILY 04/07/18 04/07/18 [Vitamin D3] Lisinopril [Zestril] 5 mg PO DAILY 04/07/18 04/07/18 Spironolactone [Aldactone] 25 mg PO DAILY 04/07/18 04/07/18 Previous Rx's Medication Instructions Recorded Midodrine [ProAmatine] 10 mg PO TID@0800,1300,1700 #180 12/22/17 tab Allergies Allergy/AdvReac Type Severity Reaction Status Date / Time adhesive Allergy Itching Verified 04/07/18 21:43 codeine Allergy Hallucinati Verified 04/07/18 21:43 ons dipyridamole Allergy heart Verified 04/07/18 21:43 [From Persantine] stopped latex AdvReac Rash/Hives Verified 04/07/18 21:43 metformin AdvReac "passed Verified 04/07/18 21:43 out" Review of Systems ROS Statement: Those systems with pertinent positive or pertinent negative responses have been documented in the HPI. ROS Other: All systems not noted in ROS Statement are negative. Past Medical History Past Medical History: Coronary Artery Disease (CAD), Chest Pain / Angina, Heart Failure, CVA/TIA, Diabetes Mellitus, GERD/Reflux, Hyperlipidemia, Hypertension, Myocardial Infarction ([place]), Osteoarthritis (OA), Syncope Additional Past Medical History / Comment(s): HX OF POLIO, PAD, ISCHEMIC CARDIOMYOPATHY., RT CATARACTS., USES WALKER. Last Myocardial Infarction Date:: 2012 History of Any Multi-Drug Resistant Organisms: None Reported Past Surgical History: AICD, Appendectomy, Section, Cholecystectomy, Coronary Bypass/CABG, Heart Catheterization, Heart Catheterization With Stent, Hysterectomy Additional Past Surgical History / Comment(s): ABIMBOLA CAROTID ENDARTERECTOMY., OVARIAN CYST., STENT LT SUBCLAVIAN - TOTAL 4 STENTS ., [employer] SCI[employer]IFIC AICD. , LT CATARACT REMOVED, multi surgery in bilateral legs to open arteries to help with blood flow Past Anesthesia/Blood Transfusion Reactions: No Reported Reaction Date of Last Stent Placement:: 11/2014 Type of Cardiac Device: AICD Device Placement Date:: 2014 Past Psychological History: Anxiety, Depression Additional Psychological History / Comment(s): LIVES WITH SPOUSE, USES WALKER WHEN UP. DOES'NT DRIVE. 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 Smoking Status: Never smoker Past Alcohol Use History: None Reported Past Drug Use History: None Reported - Past Family History Father Family Medical History: Cancer Additional Family Medical History / Comment(s): pt. states her father had throat cancer Mother Family Medical History: Coronary Artery Disease (CAD), Hyperlipidemia, Hypertension Additional Family Medical History / Comment(s): CABG General Exam - General Exam Comments Initial Comments: NIH of 11 General appearance: alert, in no apparent distress Head exam: Present: atraumatic, normocephalic, normal inspection Eye exam: Present: normal appearance, PERRL, EOMI. Absent: scleral icterus, conjunctival injection, periorbital swelling ENT exam: Present: normal exam, mucous membranes moist Neck exam: Present: normal inspection. Absent: tenderness, meningismus, lymphadenopathy Respiratory exam: Present: normal lung sounds bilaterally. Absent: respiratory distress, wheezes, rales, rhonchi, stridor Cardiovascular Exam: Present: regular rate, normal rhythm, normal heart sounds. Absent: systolic murmur, diastolic murmur, rubs, gallop, clicks GI/Abdominal exam: Present: soft, normal bowel sounds. Absent: distended, tenderness, guarding, rebound, rigid Extremities exam: Present: normal inspection, full ROM, normal capillary refill. Absent: tenderness, pedal edema, joint swelling, calf tenderness Back exam: Present: normal inspection Neurological exam: Present: alert, oriented X3, CN II-XII intact Psychiatric exam: Present: normal affect, normal mood Skin exam: Present: warm, dry, intact, normal color. Absent: rash Course Vital Signs 04/07/18 04/07/18 04/07/18 20:19 20:30 20:40 Temperature 97.4 F L Pulse Rate 120 H 122 H Respiratory 24 16 Rate Blood Pressure 149/93 149/93 155/99 O2 Sat by Pulse 95 100 Oximetry 04/07/18 04/07/18 04/07/18 21:00 21:10 21:20 Temperature 99.3 F Pulse Rate 115 H 113 H 113 H Respiratory 24 22 0 L Rate Blood Pressure 153/94 149/89 149/91 O2 Sat by Pulse 99 100 100 Oximetry 04/07/18 04/07/18 04/07/18 21:30 21:40 21:50 Temperature Pulse Rate 113 H 111 H 115 H Respiratory 31 H 27 H 33 H Rate Blood Pressure 146/91 147/94 145/87 O2 Sat by Pulse 100 100 100 Oximetry 04/07/18 04/07/18 04/07/18 22:00 22:10 22:20 Temperature Pulse Rate 114 H 116 H 112 H Respiratory 33 H 30 H 15 Rate Blood Pressure 149/85 136/83 140/85 O2 Sat by Pulse 99 100 99 Oximetry 04/07/18 04/07/18 22:30 22:40 Temperature Pulse Rate 112 H 115 H Respiratory 16 14 Rate Blood Pressure 153/94 153/94 O2 Sat by Pulse 99 100 Oximetry - Reevaluation(s) Reevaluation #1: 04/07/18 23:36 Patient medical record is reviewed Reevaluation #2: 04/07/18 23:36 Patient showing mild improvement in mental status here in the emergency room Reevaluation #3: 04/07/18 23:37 Spoke with on-call interventional neurology, no treatment for patient's findings and CTA Reevaluation #4: 04/07/18 23:37 Spoke with family, they're aware patient's illness and prognosis questions answered EKG Findings - EKG Comments: EKG Findings:: EKG shows Sinus rhythm rate of 1221 MN 178 QRS 120 QTc 579 Medical Decision Making - Medical Decision Making 73 female the ER for altered mental status, patient has significant urinary tract infection sepsis shock liver, patient be admitted for significant rehydration, IV antibiotics and monitoring by neurology for evaluation of possible CVA. - Lab Data Result diagrams: 04/07/18 20:25 04/07/18 20:25 Lab Results 04/07/18 04/07/18 04/07/18 Range/Units 20:25 20:25 20:25 WBC 10.2 (3.8-10.6) k/uL RBC 4.83 (3.80-5.40) m/uL Hgb 12.0 (11.4-16.0) gm/dL Hct 38.2 (34.0-46.0) % MCV 79.2 L (80.0-100.0) fL MCH 24.9 L (25.0-35.0) pg MCHC 31.4 (31.0-37.0) g/dL RDW 14.6 (11.5-15.5) % Plt Count 209 (150-450) k/uL Neutrophils % 81 % Lymphocytes % 10 % Monocytes % 7 % Eosinophils % 0 % Basophils % 0 % Neutrophils # 8.2 H (1.3-7.7) k/uL Lymphocytes # 1.0 (1.0-4.8) k/uL Monocytes # 0.7 (0-1.0) k/uL Eosinophils # 0.0 (0-0.7) k/uL Basophils # 0.0 (0-0.2) k/uL Hypochromasia Moderate Poikilocytosis Slight PT (9.0-12.0) sec INR (<1.2) APTT (22.0-30.0) sec Sodium 131 L (137-145) mmol/L Potassium 4.8 (3.5-5.1) mmol/L Chloride 93 L (98-107) mmol/L Carbon Dioxide 23 (22-30) mmol/L Anion Gap 15 mmol/L BUN 43 H (7-17) mg/dL Creatinine 0.97 (0.52-1.04) mg/dL Est GFR (CKD-EPI)AfAm 68 (>60 ml/min/1.73 sqM) Est GFR (CKD-EPI)NonAf 59 (>60 ml/min/1.73 sqM) Glucose 226 H (74-99) mg/dL Plasma Lactic Acid Joshua (0.7-2.0) mmol/L Calcium 10.0 (8.4-10.2) mg/dL Phosphorus 2.5 (2.5-4.5) mg/dL Magnesium 1.6 (1.6-2.3) mg/dL Total Bilirubin 2.5 H (0.2-1.3) mg/dL AST 3607 H (14-36) U/L ALT 2075 H (9-52) U/L Alkaline Phosphatase 214 H (38-126) U/L Ammonia (<30) umol/L Total Creatine Kinase 131 (30-135) U/L CK-MB (CK-2) 2.6 H (0.0-2.4) ng/mL CK-MB (CK-2) Rel Index 2.0 Troponin I (0.000-0.034) ng/mL Total Protein 6.9 (6.3-8.2) g/dL Albumin 4.0 (3.5-5.0) g/dL Urine Color Urine Appearance (Clear) Urine pH (5.0-8.0) Ur Specific [place] (1.001-1.035) Urine Protein (Negative) Urine Glucose (UA) (Negative) Urine Ketones (Negative) Urine Blood (Negative) Urine Nitrite (Negative) Urine Bilirubin (Negative) Urine Urobilinogen (<2.0) mg/dL Ur Leukocyte Esterase (Negative) Urine RBC (0-5) /hpf Urine WBC (0-5) /hpf Ur Squamous Epith Cells (0-4) /hpf Urine Bacteria (None) /hpf Hyaline Casts (0-2) /lpf Urine Mucus (None) /hpf Acetaminophen ug/mL 04/07/18 04/07/18 04/07/18 Range/Units 20:25 20:25 20:25 WBC (3.8-10.6) k/uL RBC (3.80-5.40) m/uL Hgb (11.4-16.0) gm/dL Hct (34.0-46.0) % MCV (80.0-100.0) fL MCH (25.0-35.0) pg MCHC (31.0-37.0) g/dL RDW (11.5-15.5) % Plt Count (150-450) k/uL Neutrophils % % Lymphocytes % % Monocytes % % Eosinophils % % Basophils % % Neutrophils # (1.3-7.7) k/uL Lymphocytes # (1.0-4.8) k/uL Monocytes # (0-1.0) k/uL Eosinophils # (0-0.7) k/uL Basophils # (0-0.2) k/uL Hypochromasia Poikilocytosis PT 22.0 H (9.0-12.0) sec INR 2.4 H (<1.2) APTT 24.1 (22.0-30.0) sec Sodium (137-145) mmol/L Potassium (3.5-5.1) mmol/L Chloride (98-107) mmol/L Carbon Dioxide (22-30) mmol/L Anion Gap mmol/L BUN (7-17) mg/dL Creatinine (0.52-1.04) mg/dL Est GFR (CKD-EPI)AfAm (>60 ml/min/1.73 sqM) Est GFR (CKD-EPI)NonAf (>60 ml/min/1.73 sqM) Glucose (74-99) mg/dL Plasma Lactic Acid Joshua 5.2 H* (0.7-2.0) mmol/L Calcium (8.4-10.2) mg/dL Phosphorus (2.5-4.5) mg/dL Magnesium (1.6-2.3) mg/dL Total Bilirubin (0.2-1.3) mg/dL AST (14-36) U/L ALT (9-52) U/L Alkaline Phosphatase (38-126) U/L Ammonia (<30) umol/L Total Creatine Kinase (30-135) U/L CK-MB (CK-2) (0.0-2.4) ng/mL CK-MB (CK-2) Rel Index Troponin I (0.000-0.034) ng/mL Total Protein (6.3-8.2) g/dL Albumin (3.5-5.0) g/dL Urine Color Dark Yellow Urine Appearance Cloudy H (Clear) Urine pH 5.5 (5.0-8.0) Ur Specific [place] 1.018 (1.001-1.035) Urine Protein 1+ H (Negative) Urine Glucose (UA) Trace H (Negative) Urine Ketones 1+ H (Negative) Urine Blood Small H (Negative) Urine Nitrite Negative (Negative) Urine Bilirubin 1+ H (Negative) Urine Urobilinogen 4.0 (<2.0) mg/dL Ur Leukocyte Esterase Large H (Negative) Urine RBC 11 H (0-5) /hpf Urine WBC 81 H (0-5) /hpf Ur Squamous Epith Cells 1 (0-4) /hpf Urine Bacteria Rare H (None) /hpf Hyaline Casts 25 H (0-2) /lpf Urine Mucus Rare H (None) /hpf Acetaminophen ug/mL 04/07/18 04/07/18 04/07/18 Range/Units 20:25 20:25 21:25 WBC (3.8-10.6) k/uL RBC (3.80-5.40) m/uL Hgb (11.4-16.0) gm/dL Hct (34.0-46.0) % MCV (80.0-100.0) fL MCH (25.0-35.0) pg MCHC (31.0-37.0) g/dL RDW (11.5-15.5) % Plt Count (150-450) k/uL Neutrophils % % Lymphocytes % % Monocytes % % Eosinophils % % Basophils % % Neutrophils # (1.3-7.7) k/uL Lymphocytes # (1.0-4.8) k/uL Monocytes # (0-1.0) k/uL Eosinophils # (0-0.7) k/uL Basophils # (0-0.2) k/uL Hypochromasia Poikilocytosis PT (9.0-12.0) sec INR (<1.2) APTT (22.0-30.0) sec Sodium (137-145) mmol/L Potassium (3.5-5.1) mmol/L Chloride (98-107) mmol/L Carbon Dioxide (22-30) mmol/L Anion Gap mmol/L BUN (7-17) mg/dL Creatinine (0.52-1.04) mg/dL Est GFR (CKD-EPI)AfAm (>60 ml/min/1.73 sqM) Est GFR (CKD-EPI)NonAf (>60 ml/min/1.73 sqM) Glucose (74-99) mg/dL Plasma Lactic Acid Joshua (0.7-2.0) mmol/L Calcium (8.4-10.2) mg/dL Phosphorus (2.5-4.5) mg/dL Magnesium (1.6-2.3) mg/dL Total Bilirubin (0.2-1.3) mg/dL AST (14-36) U/L ALT (9-52) U/L Alkaline Phosphatase (38-126) U/L Ammonia 13 (<30) umol/L Total Creatine Kinase (30-135) U/L CK-MB (CK-2) (0.0-2.4) ng/mL CK-MB (CK-2) Rel Index Troponin I 0.238 H* (0.000-0.034) ng/mL Total Protein (6.3-8.2) g/dL Albumin (3.5-5.0) g/dL Urine Color Urine Appearance (Clear) Urine pH (5.0-8.0) Ur Specific [place] (1.001-1.035) Urine Protein (Negative) Urine Glucose (UA) (Negative) Urine Ketones (Negative) Urine Blood (Negative) Urine Nitrite (Negative) Urine Bilirubin (Negative) Urine Urobilinogen (<2.0) mg/dL Ur Leukocyte Esterase (Negative) Urine RBC (0-5) /hpf Urine WBC (0-5) /hpf Ur Squamous Epith Cells (0-4) /hpf Urine Bacteria (None) /hpf Hyaline Casts (0-2) /lpf Urine Mucus (None) /hpf Acetaminophen <10.0 ug/mL - Radiology Data Radiology results: report reviewed (CT brain CTA had not shows significant right -sided atherosclerotic this is chronic disease. Patient is CTA of abdomen and pelvis is negative for acute disease chest x-ray negative), image reviewed Critical Care Time Critical Care Time: Yes Total Critical Care Time: 65 Disposition Clinical Impression: Altered mental status, Delirium due to general medical condition, Uremic encephalopathy, Shock liver, UTI (urinary tract infection), Sepsis Disposition: ADMITTED IP TO THIS HOSP Condition: Fair Is patient prescribed a controlled substance at d/c from ED?: No Referrals: Vladimir Azul MD [Primary Care Provider] - 1-2 days
[2018-04-07] MEDS ORDERED: ACETAMINOPHEN IV (For NPO) 1,000 MG in EMPTY BAG 1 BAG IVPB STA (20:31)
[2018-04-07 20:53] LABS: INR 2.4 (<1.2); Partial Thromboplastin Time 24.1 sec (22.0-30.0)
[2018-04-07 20:55] LABS: Magnesium 1.6 mg/dL (1.6-2.3); Phosphorus 2.5 mg/dL (2.5-4.5); Potassium 4.8 mmol/L (3.5-5.1); Total Bilirubin 2.5 mg/dL (0.2-1.3); Total Protein 6.9 g/dL (6.3-8.2)
[2018-04-07 21:03] LABS: Appearance,Urine Cloudy (Clear); Bacteria,Urine Rare /hpf; Bilirubin,Urine 1+ (Negative); Blood,Urine Small (Negative); Color,Urine Dark Yellow; Glucose,Urine (UA) Trace (Negative); Hyaline Casts,Urine 25 /lpf (0-2); Ketones,Urine 1+ (Negative); Leukocyte Esterase,Urine Large (Negative); Mucus,Urine Rare /hpf; Nitrite,Urine Negative (Negative); PH, Urine 5.5 (5.0-8.0); Protein,Urine 1+ (Negative); RBC,Urine 11 /hpf (0-5); Specific Gravity,Urine 1.018 (1.001-1.035); Squamous Epithelial Cell,Urine 1 /hpf (0-4); WBC,Urine 81 /hpf (0-5)
[2018-04-07 21:09] LABS: Creatine Kinase MB 2.6 ng/mL (0.0-2.4)
[2018-04-07 21:11] LABS: Basophils % (A) 0 %; Eosinophils % (A) 0 %; HCT 38.2 % (34.0-46.0); Hypochromasia Moderate; Lymphocytes % (A) 10 %; MCH 24.9 pg (25.0-35.0); MCHC 31.4 g/dL (31.0-37.0); MCV 79.2 fL (80.0-100.0); Mean Platelet Volume 8.8; Monocytes # (A) 0.7 k/uL (0-1.0); Monocytes % (A) 7 %; Neutrophils # (A) 8.2 k/uL (1.3-7.7); Neutrophils % (A) 81 %; Platelet Count 209 k/uL (150-450); Poikilocytosis Slight; RBC 4.83 m/uL (3.80-5.40); RDW 14.6 % (11.5-15.5); WBC 10.2 k/uL (3.8-10.6)
--- NOTE | 2018-04-07 21:14 | CT ---
EXAMINATION: CT brain wo con DATE AND TIME: 04/07/2018 9:07 PM CLINICAL INDICATION: CVA; pain TECHNIQUE: Standard departmental protocol. COMPARISON: CT 12/25/2017 FINDINGS: The calvarium is intact. There is no intracranial hemorrhage. There is no intracranial mass or mass effect. No definite new intra-axial or extra-axial attenuation defect. The paranasal sinuses, middle ear cavities, and mastoid sinus air cells are clear. The orbits are unremarkable. IMPRESSION: NO ACUTE PROCESS.
[2018-04-07] MEDS ORDERED: cefTRIAXone 2,000 MG in SODIUM CHLORIDE 0.9% 100 ML IVPB STA (21:27)
[2018-04-07] MEDS ORDERED: SODIUM CHLORIDE 0.9% 500 ML 500 ML IV STA (21:43)
--- NOTE | 2018-04-07 22:02 | XR ---
EXAMINATION: XR chest 1V DATE AND TIME: 04/07/2018 9:50 PM CLINICAL INDICATION: Weakness TECHNIQUE: AP upright portable COMPARISON: 12/25/2017 FINDINGS: Cardiac pacemaker, sternal sutures, mediastinal clips, EKG leads. The lungs are predominantly clear. The pleural spaces are negative. The cardiac silhouette is markedly enlarged, stable. The skeletal structures and soft tissues are negative for acute findings. IMPRESSION: NO ACUTE PROCESS.
--- NOTE | 2018-04-07 23:07 | CT ---
EXAMINATION TYPE: CT angio head neck DATE OF EXAM: 04/07/2018 HISTORY: cva COMPARISON: CT DLP: 1922.7 combined DLP mGycm. Automated Exposure Control for Dose Reduction was Utilized. TECHNIQUE: CTA scan of the neck is performed with IV Contrast, patient injected with 65 mL of Isovue 370, axial images are obtained, coronal and sagittal reformatted images are reviewed. Three-D recons tructed images are created on an independent workstation and reviewed. FINDINGS: There is normal branching pattern of the great vessels on the aortic arch. There is no definite flow in the a right vertebral artery. The left vertebral artery is patent. The distal left vertebral arter y is probably filling retrograde. There appears to be a stent in the proximal left subclavian artery. There is extensive atherosclerotic calcification at the aortic arch. There is significant plaque in the proximal right subclavian artery. There is arterial flow in the common carotid arteries. There is significant plaque formation at the r ight carotid artery bifurcation. There is absent flow seen in the right internal carotid artery. There is soft tissue air on the right side of the face that could relate to advertent venous air. The re is atherosclerotic calcification and plaque formation in the intracranial left internal carotid ar lissette. I see no flow in the right internal carotid artery within the skull. There is apparent patency of the anterior communicating artery and filling of the right anterior cerebral artery from the left side. There is filling of the right posterior cerebral arteries from the right posterior communicatin g artery. There is normal contrast opacification of the venous sinuses. I see no evidence of intracranial aneur ysm or neovascularity. IMPRESSION: The exam shows significant atherosclerotic plaque formation and calcification. There is stenosis prox imal right subclavian artery. There is absent flow in the right vertebral artery. There is absent lisa w in the entire right internal carotid artery. There is patency of the left subclavian artery stent.
--- NOTE | 2018-04-07 23:27 | CT ---
EXAMINATION TYPE: CT abdomen pelvis wo con DATE OF EXAM: 04/07/2018 COMPARISON: 11/01/2017 HISTORY: Abdominal pain. CT DLP: 444.3 mGycm Automated exposure control for dose reduction was used. TECHNIQUE: Helical acquisition of images was performed from the lung bases through the pelvis. FINDINGS: There is a right pleural effusion. Heart is enlarged. There is no pericardial effusion. There is some patchy atelectasis at the lung bases. Stomach appears normal. There is no evidence of a splenic mass . There are clips from cholecystectomy. Liver shows no focal defect. There is mild ascites fluid in t he abdomen. Bladder distends smoothly with contrast from recent exam. There are multiple diverticula in the sigmoid colon. There is no sign of free air. There is no inguinal hernia. Abdominal aorta is atheromatous. There is contrast in both kidneys. There is decreased cortical densi ty in the lower pole right kidney. I see no mesenteric edema. There is no retroperitoneal adenopathy. There is subcutaneous edema over the lower lumbar spine. There are spondylotic changes in the lumbar spine. I see no focal bone destruction. IMPRESSION: ATHEROSCLEROTIC VASCULAR DISEASE. THERE IS PROBABLY MODERATE L3-4 BONY SPINAL STENOSIS. SIGMOID DIVERTICULOSIS WITHOUT DIVERTICULITIS. MILD ASCITES. DECREASED DENSITY IN THE LOWER POLE RIGHT KIDNEY COULD RELATE TO RENAL ISCHEMIA. NO FELIPE DENCE OF A RENAL MASS. COMPARED TO OLD EXAM RIGHT PLEURAL EFFUSION IS INCREASED. RIGHT KIDNEY UNCHANGED. ASCITES FLUID IS NE W.
[2018-04-08 01:15] LABS: Cholesterol 97 mg/dL (<200); HDL Cholesterol 20 mg/dL (40-60); LDL Cholesterol,Calculated 56 mg/dL (0-99); Triglycerides 105 mg/dL (<150)
[2018-04-08] MEDS ORDERED: ONDANSETRON 4 MG/2 ML VIAL IVP STA (02:11)
[2018-04-08] MEDS: SODIUM CHLORIDE 0.9% 500 ML 500 ML IV SCH ×3 (02:13→03:30)
[2018-04-08] MEDS: SODIUM CHLORIDE 0.9% 1,000 ML IV SCH ×2 (02:14→07:18)
[2018-04-08 03:29] LABS: Amphetamine Screen,Urine Not Detected (NotDetected); Barbiturate Screen,Urine Not Detected (NotDetected); Benzodiazepines Screen,Urine Not Detected (NotDetected); Cocaine Screen,Urine Not Detected (NotDetected); Methadone Screen, Urine Not Detected (NotDetected); Opiate Screen,Urine Not Detected (NotDetected); Oxycodone Screen, Urine Not Detected (NotDetected); Phencyclidine Screen,Urine Not Detected (NotDetected); Tricyclic Antidepressant,Urine Not Detected (NotDetected); Urn Cannabinoid Scrn Not Detected (NotDetected)
[2018-04-08 03:33] LABS: Glucose,Whole Blood 134 mg/dL (75-99)
--- NOTE | 2018-04-08 04:18 | CT ---
EXAMINATION TYPE: CT brain wo con DATE OF EXAM: 04/08/2018 COMPARISON: Yesterday HISTORY: AMS CT DLP: 1101.4 mGycm Automated exposure control for dose reduction was used. FINDINGS: There is cerebral cortical atrophy. There is no mass effect nor midline shift. There is no sign of in tracranial hemorrhage. There is a 1.5 x 1 cm area of hypodensity left occipital lobe cortex consisten t with old cortical infarct. Calvarium is intact. IMPRESSION: CEREBRAL ATROPHY. OLD LEFT SMALL OCCIPITAL LOBE CORTICAL INFARCT. NO CHANGE.
[2018-04-08] MEDS ORDERED: ETOMIDATE 2 MG/ML 10 ML VIAL IVP STA (04:40)
[2018-04-08] MEDS ORDERED: SUCCINYLCHOLINE CHLORIDE VIAL 200 MG/10 ML VIAL IV STA (04:40)
[2018-04-08 04:55] LABS: Basophils % (A) 0 %; Eosinophils % (A) 0 %; HCT 38.6 % (34.0-46.0); HGB 11.6 gm/dL (11.4-16.0); Hypochromasia Marked; Lymphocytes # (A) 1.2 k/uL (1.0-4.8); Lymphocytes % (A) 10 %; MCH 24.7 pg (25.0-35.0); MCHC 30.2 g/dL (31.0-37.0); MCV 81.8 fL (80.0-100.0); Mean Platelet Volume 8.6; Monocytes # (A) 0.8 k/uL (0-1.0); Monocytes % (A) 7 %; Neutrophils # (A) 9.4 k/uL (1.3-7.7); Neutrophils % (A) 81 %; Platelet Count 187 k/uL (150-450); RBC 4.71 m/uL (3.80-5.40); RDW 14.7 % (11.5-15.5); WBC 11.7 k/uL (3.8-10.6)
[2018-04-08 04:58] LABS: Appearance,Urine Clear (Clear); Bilirubin,Urine Negative (Negative); Blood,Urine Trace (Negative); Color,Urine Yellow; Glucose,Urine (UA) Negative (Negative); Ketones,Urine Negative (Negative); Leukocyte Esterase,Urine Negative (Negative); Mucus,Urine Rare /hpf; Nitrite,Urine Negative (Negative); PH, Urine 5.5 (5.0-8.0); Protein,Urine 1+ (Negative); RBC,Urine 6 /hpf (0-5); Squamous Epithelial Cell,Urine <1 /hpf (0-4); WBC,Urine 6 /hpf (0-5)
[2018-04-08 05:03] LABS: Ammonia <9 umol/L (<30)
[2018-04-08 05:04] LABS: Albumin 3.5 g/dL (3.5-5.0); Potassium 4.7 mmol/L (3.5-5.1); Total Bilirubin 3.3 mg/dL (0.2-1.3); Total Protein 6.2 g/dL (6.3-8.2)
[2018-04-08 05:05] LABS: INR 3.4 (<1.2); Partial Thromboplastin Time 24.9 sec (22.0-30.0); Prothrombin Time 30.2 sec (9.0-12.0)
[2018-04-08 05:08] LABS: Lactic Acid, Venous 7.6 mmol/L (0.7-2.0)
[2018-04-08 05:09] LABS: Specific Gravity,Urine >1.050 (1.001-1.035)
--- NOTE | 2018-04-08 05:11 | XR ---
EXAMINATION TYPE: XR chest 1V portable DATE OF EXAM: 04/08/2018 COMPARISON: Yesterday HISTORY: Intubation TECHNIQUE: Single frontal view of the chest is obtained. FINDINGS: Endotracheal tube is low and within millimeters of the shannan. There is pulmonary vascular congestion. Heart is enlarged. There is left axillary pacemaker with the lead tip over the right paul tricle. There is nasogastric tube that is probably in good position. There are chest leads. IMPRESSION: New pulmonary edema compared to yesterday and consistent with congestive heart failure. Endotracheal tube should be pulled back 4 cm.
[2018-04-08 05:16] LABS: Glucose,Whole Blood 135 mg/dL (75-99)
[2018-04-08] MEDS: PROPOFOL 1,000 MG in EMPTY BAG 1 BAG IV SCH ×4 (05:24→22:29)
[2018-04-08 05:26] LABS: Creatine Kinase MB 2.5 ng/mL (0.0-2.4)
[2018-04-08 05:31] LABS: Troponin I 0.213 ng/mL (0.000-0.034)
[2018-04-08 05:37] LABS: ABG Base Excess -13.6 mmol/L; ABG HCO3 14 mmol/L (21-25); ABG Oxygen Saturation 98.6 % (94-97); ABG PCO2 31 mmHg (35-45); ABG PH 7.25 (7.35-7.45); ABG PO2 397 mmHg (83-108); ABG TCO2 15 mmol/L (19-24)
[2018-04-08 05:46] LABS: Appearance,Urine Cloudy (Clear); Bacteria,Urine Rare /hpf; Bilirubin,Urine 1+ (Negative); Blood,Urine Moderate (Negative); Color,Urine Yellow; Glucose,Urine (UA) Negative (Negative); Ketones,Urine Trace (Negative); Leukocyte Esterase,Urine Large (Negative); Mucus,Urine Occasional /hpf; Nitrite,Urine Negative (Negative); PH, Urine 5.5 (5.0-8.0); Protein,Urine 1+ (Negative); RBC,Urine 64 /hpf (0-5); Specific Gravity,Urine 1.043 (1.001-1.035); Squamous Epithelial Cell,Urine 5 /hpf (0-4); WBC,Urine 38 /hpf (0-5)
[2018-04-08] MEDS ORDERED: FUROSEMIDE 10 MG/ML 10 ML VIAL IV STA (06:12)
[2018-04-08] MEDS: DEXTROSE 5% IN WATER 1,000 ML with SODIUM BICARB (1 MEQ/ML) 150 ML IV SCH (07:15)
[2018-04-08] MEDS: CHLORHEXIDINE GLUCONATE 15 ML CUP MUCOUS MEM SCH ×2 (08:56→20:55)
[2018-04-08] MEDS: ENOXAPARIN 30 MG/0.3 ML SYRINGE SQ SCH (08:56)
[2018-04-08] MEDS: PANTOPRAZOLE 40 MG/10 ML VIAL IVP SCH (08:56)
[2018-04-08] MEDS ORDERED: FUROSEMIDE 10 MG/ML 10 ML VIAL IV SCH (09:00)
--- NOTE | 2018-04-08 10:23 | P.CNPUL ---
History of Present Illness Consult date: 04/08/18 Requesting physician: Audra Mcginnis Reason for consult: other (Acute hypoxic respiratory failure, cardiogenic shock) Chief complaint: Altered mental status History of present illness: This is a 73-year-old female with history of multiple medical problems including coronary artery disease, ischemic cardiomyopathy, peripheral vessel occlusive disease with bilateral carotid endarterectomy, CABG, subclavian stent placement and multiple peripheral stents placed in the past, patient obviously has severe vasculopathy. Severe peripheral vessel occlusive disease involving lower extremities. Previous AICD placement 4 severe ischemic cardiomyopathy. Patient was last admitted to [facility] about 3 months ago, at that time she was admitted with recurrent syncope and multiple falls secondary to recurrent syncope. Patient was seen by many consultants during the last admission, and she was eventually discharged home on 12/29/2017. During that admission the patient had tilt table test that showed orthostatic drop in blood pressure without any symptoms. Patient was placed on Florinef by cardiology. Last night the patient presented to the ER with altered mental status, and according to the family she was not acting appropriately, she was confused, and there was questionable right-sided weakness noted by EMS upon arrival. Workup in the ER included CT of the brain, CT of the abdomen and pelvis, chest x-ray, CT angiogram of the brain, EKG, workup was basically nondiagnostic except for the chest x-ray showing some evidence of pulmonary edema. Her liver enzymes were noted to be significantly elevated. With significantly elevated transaminases, and total bilirubin was 3.3. Her urinalysis showed evidence of pyuria and bacteriuria, and wild in the ER, just before transferring the patient to the ICU, patient deteriorated, and her respiration became agonal. Patient was intubated by the ER physician, and transferred to the ICU. I saw the patient in the ICU, presently sedated, on propofol at 30 mcg/kg/m, she is on mechanical ventilation with tidal volume of 400, assist control rate of 20 FiO2 45% and PEEP of 5. Her peak airway pressure is 28, and plateau pressure is 14. Patient is not responsive to any stimuli. Her pupils seem to be pinpoint. ABG post intubation showed it be O2 of 397 pCO2 of 31, pH of 7.5. Apparently the patient was developing significant metabolic acidosis, could be related to global hypoperfusion could also be related to sepsis, assuming the most likely source would be the urine. Her initial lactic acid was 7.6, follow- up lactic acid post fluid boluses of 2 L, came back down to 5.9. Review of Systems ROS unobtainable: due to endotracheal tube Past Medical History Past Medical History: Coronary Artery Disease (CAD), Chest Pain / Angina, Heart Failure, CVA/TIA, Diabetes Mellitus, GERD/Reflux, Hyperlipidemia, Hypertension, Myocardial Infarction (MO), Osteoarthritis (OA), Syncope Additional Past Medical History / Comment(s): HX OF POLIO, PAD, ISCHEMIC CARDIOMYOPATHY., RT CATARACTS., USES WALKER. Last Myocardial Infarction Date:: 2012 History of Any Multi-Drug Resistant Organisms: None Reported Past Surgical History: AICD, Appendectomy, Section, Cholecystectomy, Coronary Bypass/CABG, Heart Catheterization, Heart Catheterization With Stent, Hysterectomy Additional Past Surgical History / Comment(s): ABIMBOLA CAROTID ENDARTERECTOMY., OVARIAN CYST., STENT LT SUBCLAVIAN - TOTAL 4 STENTS ., [employer] AICD. , LT CATARACT REMOVED, multi surgery in bilateral legs to open arteries to help with blood flow Past Anesthesia/Blood Transfusion Reactions: No Reported Reaction Date of Last Stent Placement:: 11/2014 Type of Cardiac Device: AICD Device Placement Date:: 2014 Past Psychological History: Anxiety, Depression Additional Psychological History / Comment(s): LIVES WITH SPOUSE, USES WALKER WHEN UP. DOES'NT DRIVE. CURRENTLY RECIEVING [employer] [facility](HOME CARE). Smoking Status: Never smoker Past Alcohol Use History: None Reported Past Drug Use History: None Reported - Past Family History Father Family Medical History: Cancer Additional Family Medical History / Comment(s): pt. states her father had throat cancer Mother Family Medical History: Coronary Artery Disease (CAD), Hyperlipidemia, Hypertension Additional Family Medical History / Comment(s): CABG Medications and Allergies Home Medications Medication Instructions Recorded Confirmed Type Clopidogrel [Plavix] 75 mg PO DAILY@89911/22/14 04/07/18 History DULoxetine HCL [Cymbalta] 60 mg PO DAILY@89902/02/17 04/07/18 History Lansoprazole [Prevacid] 30 mg PO DAILY@89902/02/17 04/07/18 History Multivitamins, Thera [Multivitamin 1 tab PO DAILY@89906/16/17 04/07/18 History (formulary)] Ubidecarenone [Co Q-10] 400 mg PO DAILY@0900 06/16/17 04/07/18 History Bifidobacterium Infantis [Align] 4 mg PO DAILY@0900 09/18/17 04/07/18 History Nitroglycerin Sl Tabs [Nitrostat] 0.4 mg SUBLINGUAL Q5M PRN 09/18/17 04/07/18 History Calcium Carbonate 648mg 648 mg PO BID@09,21 10/31/17 04/07/18 History Dulaglutide [Trulicity] 0.75 mg SQ WE 10/31/17 04/07/18 History Fenofibrate [Lofibra] 160 mg PO DAILY@0900 10/31/17 04/07/18 History Gabapentin [Neurontin] 100 mg PO TID@0900,1200,1700 10/31/17 04/07/18 History INSULIN LISPRO (humaLOG) [humaLOG] 4 units SQ AC-TID@09,12,17 10/31/17 04/07/18 History INSULIN LISPRO (humaLOG) [humaLOG] See Protocol SQ ACHS 10/31/17 04/07/18 History Insulin Glargine [Lantus] 10 units SQ HS@2100 10/31/17 04/07/18 History Ketorolac 0.5% Ophth Soln [Acular 1 drops LEFT EYE BID 10/31/17 04/07/18 History 0.5%] Lifitegrast [Xiidra] 1 drop BOTH EYES BID 10/31/17 04/07/18 History Midodrine [ProAmatine] 10 mg PO TID@0800,1300,1700 #180 12/22/17 04/07/18 Rx tab Acetaminophen/Diphenhydramine 1 - 2 tab PO HS 04/07/18 04/07/18 History [Tylenol PM 500-25mg] Aspirin EC [Ecotrin Low Dose] 81 mg PO DAILY 04/07/18 04/07/18 History Atorvastatin [Lipitor] 80 mg PO HS 04/07/18 04/07/18 History Cholecalciferol (Vitamin D3) 2,000 unit PO DAILY 04/07/18 04/07/18 History [Vitamin D3] Lisinopril [Zestril] 5 mg PO DAILY 04/07/18 04/07/18 History Spironolactone [Aldactone] 25 mg PO DAILY 04/07/18 04/07/18 History Allergies Allergy/AdvReac Type Severity Reaction Status Date / Time adhesive Allergy Itching Verified 04/07/18 21:43 codeine Allergy Hallucinati Verified 04/07/18 21:43 ons dipyridamole Allergy heart Verified 04/07/18 21:43 [From Persantine] stopped latex AdvReac Rash/Hives Verified 04/07/18 21:43 metformin AdvReac "passed Verified 04/07/18 21:43 out" Physical Exam Vitals: Vital Signs Temp Pulse Pulse Resp BP BP Pulse Ox 04/08/18 08:30 110 H 21 100 04/08/18 08:00 97.5 F L 108 H 22 100 04/08/18 07:56 105 H 24 100 04/08/18 07:00 104 H 24 150/78 04/08/18 06:00 104 H 24 137/87 04/08/18 05:00 98.0 F 105 H 104 H 24 165/94 168/88 100 04/08/18 04:45 117 H 10 L 100 04/08/18 04:40 110 H 10 L 100 04/08/18 04:30 112 H 24 169/99 100 04/08/18 04:15 110 H 24 180/90 98 04/08/18 04:00 110 H 24 176/81 98 04/08/18 03:45 112 H 24 184/101 100 04/08/18 03:30 112 H 22 169/89 100 04/08/18 03:15 110 H 22 158/88 98 04/08/18 03:00 111 H 19 170/87 98 04/08/18 02:05 105 H 20 157/91 04/08/18 01:10 112 H 18 158/104 99 04/08/18 01:00 110 H 16 153/93 04/08/18 00:50 112 H 3 L 168/108 04/08/18 00:40 111 H 16 160/92 04/08/18 00:30 114 H 24 150/98 100 04/08/18 00:20 108 H 20 148/98 99 04/08/18 00:10 113 H 14 153/101 99 04/08/18 00:00 113 H 14 161/125 100 04/07/18 23:50 112 H 18 148/102 100 04/07/18 23:40 112 H 20 155/97 98 04/07/18 23:39 112 H 14 155/97 99 04/07/18 23:30 113 H 14 155/97 99 04/07/18 23:20 114 H 14 157/95 99 04/07/18 23:10 114 H 19 158/94 100 04/07/18 22:50 112 H 15 161/94 100 04/07/18 22:40 115 H 14 153/94 100 04/07/18 22:30 112 H 16 153/94 99 04/07/18 22:20 112 H 15 140/85 99 04/07/18 22:10 116 H 30 H 136/83 100 04/07/18 22:00 114 H 33 H 149/85 99 04/07/18 21:50 115 H 33 H 145/87 100 04/07/18 21:40 111 H 27 H 147/94 100 04/07/18 21:30 113 H 31 H 146/91 100 04/07/18 21:20 113 H 0 L 149/91 100 04/07/18 21:10 113 H 22 149/89 100 04/07/18 21:00 99.3 F 115 H 24 153/94 99 04/07/18 20:40 155/99 04/07/18 20:30 122 H 16 149/93 100 04/07/18 20:19 97.4 F L 120 H 24 149/93 95 Intake and Output 04/07/18 04/08/18 04/08/18 22:59 06:59 14:59 Intake Total 170 56.067 Output Total 10 0 Balance 160 56.067 Intake: Intake, IV Titration 170 56.067 Amount Propofol 1,000 mg In 36.067 Empty Bag 1 bag @ Titrate IV .Q0M NOE Rx#: [id number] Sodium Chloride 0.9% 1, 170 000 ml @ 150 mls/hr IV . Q6H40M NOE Rx#:[id number] Sodium Chloride 0.9% 1, 20 000 ml @ 20 mls/hr IV . Q24H STA Rx#:[id number] Output: Urine 10 0 Other: Voiding Method Indwelling Catheter Indwelling Catheter Weight 58.967 kg 58.967 kg Physical Exam: Revealed a 73-year-old female sedated, unresponsive to any painful stimuli, on mechanical ventilation, in no distress. Head: Atraumatic, normocephalic. HEENT:[Neck is supple.] [No neck masses.] [No thyromegaly.] [No JVD.] Positive icterus. Mouth dry mucous membranes. Endotracheal tube and orogastric tube are intact. Chest: [Crackles and rhonchi noted bilaterally, symmetrical expansion, no chest wall tenderness. Cardiac Exam: [Normal S1 and S2, no S3 gallop, no murmur.] Abdomen: [Soft, nontender, no megaly, no rebound, no guarding, normal bowel sounds.] Extremities: [No clubbing, no edema, no cyanosis.] Diminished distal pulses bilaterally. Neurological Exam: Cannot be assessed, patient is sedated, presently unresponsive to painful stimuli. Pupils are pinpoint. Psychiatric: Cannot be assessed. Skin: No rashes. Results - Laboratory Findings CBC and BMP: 04/08/18 04:42 04/08/18 04:42 ABG ABG pH 7.25 (7.35-7.45) L 04/08/18 05:35 ABG pCO2 31 mmHg (35-45) L 04/08/18 05:35 ABG pO2 397 mmHg (83-108) H 04/08/18 05:35 ABG O2 Saturation 98.6 % (94-97) H 04/08/18 05:35 PT/INR, D-dimer PT 30.2 sec (9.0-12.0) H 04/08/18 04:42 INR 3.4 (<1.2) H 04/08/18 04:42 Abnormal lab findings: Abnormal Labs 04/07/18 04/07/18 04/07/18 20:25 20:25 20:25 WBC MCV 79.2 L MCH 24.9 L MCHC Neutrophils # 8.2 H PT INR ABG pH ABG pCO2 ABG pO2 ABG HCO3 ABG Total CO2 ABG O2 Saturation Sodium 131 L Chloride 93 L Carbon Dioxide BUN 43 H Glucose 226 H POC Glucose (mg/dL) Plasma Lactic Acid Joshua Total Bilirubin 2.5 H AST 3607 H ALT 2075 H Alkaline Phosphatase 214 H CK-MB (CK-2) 2.6 H Troponin I Total Protein HDL Cholesterol Urine Appearance Ur Specific [place] Urine Protein Urine Glucose (UA) Urine Ketones Urine Blood Urine Bilirubin Ur Leukocyte Esterase Urine RBC Urine WBC Urine WBC Clumps Ur Squamous Epith Cells Urine Bacteria Hyaline Casts Urine Mucus 04/07/18 04/07/18 04/07/18 20:25 20:25 20:25 WBC MCV MCH MCHC Neutrophils # PT 22.0 H INR 2.4 H ABG pH ABG pCO2 ABG pO2 ABG HCO3 ABG Total CO2 ABG O2 Saturation Sodium Chloride Carbon Dioxide BUN Glucose POC Glucose (mg/dL) Plasma Lactic Acid Joshua 5.2 H* Total Bilirubin AST ALT Alkaline Phosphatase CK-MB (CK-2) Troponin I Total Protein HDL Cholesterol Urine Appearance Cloudy H Ur Specific [place] Urine Protein 1+ H Urine Glucose (UA) Trace H Urine Ketones 1+ H Urine Blood Small H Urine Bilirubin 1+ H Ur Leukocyte Esterase Large H Urine RBC 11 H Urine WBC 81 H Urine WBC Clumps Ur Squamous Epith Cells Urine Bacteria Rare H Hyaline Casts 25 H Urine Mucus Rare H 04/07/18 04/07/18 04/08/18 20:25 21:25 00:55 WBC MCV MCH MCHC Neutrophils # PT INR ABG pH ABG pCO2 ABG pO2 ABG HCO3 ABG Total CO2 ABG O2 Saturation Sodium Chloride Carbon Dioxide BUN Glucose POC Glucose (mg/dL) Plasma Lactic Acid Joshua 4.4 H* Total Bilirubin AST ALT Alkaline Phosphatase CK-MB (CK-2) Troponin I 0.238 H* Total Protein HDL Cholesterol 20 L Urine Appearance Ur Specific [place] Urine Protein Urine Glucose (UA) Urine Ketones Urine Blood Urine Bilirubin Ur Leukocyte Esterase Urine RBC Urine WBC Urine WBC Clumps Ur Squamous Epith Cells Urine Bacteria Hyaline Casts Urine Mucus 04/08/18 04/08/18 04/08/18 02:56 03:26 04:42 WBC 11.7 H MCV MCH 24.7 L MCHC 30.2 L Neutrophils # 9.4 H PT INR ABG pH ABG pCO2 ABG pO2 ABG HCO3 ABG Total CO2 ABG O2 Saturation Sodium Chloride Carbon Dioxide BUN Glucose POC Glucose (mg/dL) 134 H Plasma Lactic Acid Joshua Total Bilirubin AST ALT Alkaline Phosphatase CK-MB (CK-2) Troponin I Total Protein HDL Cholesterol Urine Appearance Ur Specific [place] >1.050 H Urine Protein 1+ H Urine Glucose (UA) Urine Ketones Urine Blood Trace H Urine Bilirubin Ur Leukocyte Esterase Urine RBC 6 H Urine WBC 6 H Urine WBC Clumps Ur Squamous Epith Cells Urine Bacteria Hyaline Casts Urine Mucus Rare H 04/08/18 04/08/18 04/08/18 04:42 04:42 04:42 WBC MCV MCH MCHC Neutrophils # PT 30.2 H INR 3.4 H ABG pH ABG pCO2 ABG pO2 ABG HCO3 ABG Total CO2 ABG O2 Saturation Sodium 135 L Chloride Carbon Dioxide 15 L BUN 39 H Glucose 137 H POC Glucose (mg/dL) Plasma Lactic Acid Joshua Total Bilirubin 3.3 H AST 2827 H ALT 1667 H Alkaline Phosphatase 235 H CK-MB (CK-2) 2.5 H Troponin I 0.213 H* Total Protein 6.2 L HDL Cholesterol Urine Appearance Ur Specific [place] Urine Protein Urine Glucose (UA) Urine Ketones Urine Blood Urine Bilirubin Ur Leukocyte Esterase Urine RBC Urine WBC Urine WBC Clumps Ur Squamous Epith Cells Urine Bacteria Hyaline Casts Urine Mucus 04/08/18 04/08/18 04/08/18 04:42 05:15 05:30 WBC MCV MCH MCHC Neutrophils # PT INR ABG pH ABG pCO2 ABG pO2 ABG HCO3 ABG Total CO2 ABG O2 Saturation Sodium Chloride Carbon Dioxide BUN Glucose POC Glucose (mg/dL) 135 H Plasma Lactic Acid Joshua 7.6 H* Total Bilirubin AST ALT Alkaline Phosphatase CK-MB (CK-2) Troponin I Total Protein HDL Cholesterol Urine Appearance Cloudy H Ur Specific [place] 1.043 H Urine Protein 1+ H Urine Glucose (UA) Urine Ketones Trace H Urine Blood Moderate H Urine Bilirubin 1+ H Ur Leukocyte Esterase Large H Urine RBC 64 H Urine WBC 38 H Urine WBC Clumps Many H Ur Squamous Epith Cells 5 H Urine Bacteria Rare H Hyaline Casts Urine Mucus Occasional H 04/08/18 04/08/18 05:35 08:24 WBC MCV MCH MCHC Neutrophils # PT INR ABG pH 7.25 L ABG pCO2 31 L ABG pO2 397 H ABG HCO3 14 L ABG Total CO2 15 L ABG O2 Saturation 98.6 H Sodium Chloride Carbon Dioxide BUN Glucose POC Glucose (mg/dL) Plasma Lactic Acid Joshua 5.9 H* Total Bilirubin AST ALT Alkaline Phosphatase CK-MB (CK-2) Troponin I Total Protein HDL Cholesterol Urine Appearance Ur Specific [place] Urine Protein Urine Glucose (UA) Urine Ketones Urine Blood Urine Bilirubin Ur Leukocyte Esterase Urine RBC Urine WBC Urine WBC Clumps Ur Squamous Epith Cells Urine Bacteria Hyaline Casts Urine Mucus - Diagnostic Findings Chest x-ray: image reviewed (Chest x-ray is consistent with pulmonary edema and congestive heart failure. Endotracheal tube was noted to be low, hence it was pulled back about 3 CM) Assessment and Plan Assessment: Impression: 1 acute hypoxic respiratory failure secondary to congestive heart failure, systolic in nature patient is known to have history of ischemic cardiomyopathy. And LV dysfunction. 2 acute urinary tract infection, strongly suspect sepsis secondary to UTI. 3 acute shock liver with elevated transaminases most likely secondary to hypoperfusion. 4 coronary artery disease and previous CABG with stent placements and ischemic cardiomyopathy post-AICD. 5 severe peripheral artery disease and multiple endovascular placement of stents including aortic stent left iliac femoral-femoral bypass surgery and great saphenous vein at [facility]. 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 14 history of recurrent episodes of syncope secondary to orthostatic hypotension. 15 history of mixed hyperlipidemia. Recommendation: Continue ventilatory support, antibiotics, GI and DVT prophylaxis, nutritional support to be initiated, neurological assessment, suggest neurological consultation. Patient may also need GI evaluation for her abnormal liver enzymes. And cardiology will be consulted since I believe patient is known to have severe ischemic cardiomyopathy and LV dysfunction, has been seen by cardiology on multiple occasions even on her last admission. Prognosis is at this point poor and guarded, we'll continue to follow. Patient is critically ill. She may have even sustained some component of anoxic brain injury. Or she could have metabolic encephalopathy at this point. Time with Patient: Greater than 30
--- NOTE | 2018-04-08 11:02 | CONS ---
CONSULTATION Mrs. Colon is a 73-year-old female who is seen for cardiac evaluation. This patient currently is intubated. The history obtained from the nurse as well as the charts, patient's medical records reviewed. Patient was brought to the emergency room with change in the mental status. Patient was not acting appropriately according to the family members. According to the family member, she did had some warm feeling and some chills. She denied any other definite complaints. Initially, the patient was also noticed to have some right-sided weakness. The CT scan of the brain was negative. CT angiogram shows diffuse cerebrovascular disease, but there was no evidence of any acute stroke. This patient has a history of ischemic cardiomyopathy, prior history of coronary artery bypass surgery, AICD placement, history of congestive cardiac failure and stent placement. Patient had been doing fairly well till the current admission. PAST MEDICAL HISTORY: Includes history of appendicectomy, AICD, , cholecystectomy, coronary artery bypass surgery, prior history of stent, bilateral carotid end arterectomy, left subclavian stent placement, left cataracts surgery placement social history patient lives with a soft spouse. Uses walker when up. Does not drive. Patient currently is getting home care. HOME MEDICATIONS: Align, Nitrostat, Trulicity, Lofibra, insulin, Lantus insulin and aspirin Lipitor 80 mg daily, vitamin D3, Zestril, Aldactone, Prevacid, Cymbalta, and the Plavix. PHYSICAL EXAMINATION: This patient is currently intubated in the emergency room. Patient was afebrile, CF sinus tachycardia. Oxygen saturation was 95%. At present, the patient's heart rate is 110,, blood pressure is 150/78 mmHg, respiratory rate is 24, oxygen saturation is 100%. HEENT examination is negative. Neck is supple. Both the carotid pulses are felt, there is a bruit noted. Chest is symmetrical. PMI is diffuse. HEART: First and second heart sounds are heard. Lungs reveals bilateral basal rales. ABDOMEN: Soft. EXTREMITIES: Peripheral pulsations are not felt. Initial chest x-ray was unremarkable. The chest x-ray done this morning is suggestive of acute pulmonary edema. Patient's arterial blood gases shows pH is 7.25, pCO2 is 31, PO2 is 397. Patient's lactic acidosis is 5.9. Initial lactic acid was 7.6. Patient's initial troponin is 0.213 and the second troponin is 0.238. FINAL IMPRESSION: This patient is admitted with change in the mental status secondary to sepsis. Patient has evidence of lactic acidosis. The source of infection exactly unclear, but it could be the urosepsis. The patient also has elevated liver enzymes suggestive of shocked liver. The patient is hemodynamically stable. The chest x-ray shows evidence of congestive cardiac failure. We will recommend to treat the patient with Lasix 80 mg IV q.12 hourly. Patient has a mildly elevated troponin which is not suggestive of acute coronary syndrome or type 1 myocardial injury. This could be secondary to patient's septic shock. This may represent a myocardial injury secondary to septic shock. We will obtain echo and Doppler study. MMODL / IJN: [id number] /
[2018-04-08] MEDS: IPRATROPIUM-ALBUTEROL 3 ML NEB INHALATION SCH ×3 (11:20→19:53)
--- NOTE | 2018-04-08 11:22 | P.CONS ---
History of Present Illness - Reason for Consult Consult date: 04/08/18 elevated liver enzymes Requesting physician: Audra Mcginnis - Chief Complaint altered mental status - History of Present Illness 73-year-old female with a past medical history of peripheral vascular disease with intervention earlier this year May 2017 at [facility], CAD, diabetes, CVA, CT, hypertension, polio, ischemia cardiomyopathy, CABG, open cholecystectomy presents with altered mental status changes. History obtained from her spouse secondary to intubation status. states over the last few days she's had difficulty walking week staggering around the house generalized weakness with altered mental status. He did not witness any episodes of hematemesis hematochezia or melena. Normally her blood pressures run high he's not sure if she was experiencing low blood pressures prior to admission. Consult requested for elevated liver enzymes. According to the nursing staff earlier this morning she arrested on the medical floor was down for about 40 minutes presently she is intubated. LFTs in December were within normal limits. On admission total bilirubin 2.5. AST 3607. ALT 2075. AP 214. Ammonia less than 9. Troponin 0.2. Lactic acid 5.2. BUN 43. Creatinine 0.9. White count 10.2. He will and 12. MCV 79-81. Platelet 209. INR 2.4 presently 3.4. Patient is not on anticoagulant therapy at home. LFTs today total bilirubin 3.3. AST 2827. ALT 1667. AP to 35. No history of liver disorders. No history of alcoholism. Open cholecystectomy many years ago no history of stones. CT abdomen sigmoid diverticulosis mild ascites. Review of Systems Obtained from spouse Constitutional: Denies fever, chills, sweats, weight gain, or loss. HEENT: Negative for migraines, blurred vision or loss, earaches, drainage, tinnitus, oral mucosal lesions, dysphagia, or odynophagia. CARDIAC: Negative for chest pain, arrhythmias, or palpitation. RESPIRATORY: Negative for shortness of breath, hemoptysis, cough, or sputum production. GI: See HPI for pertinent findings. : Negative for hematuria, urgency, frequency, polyuria, or dysuria. GYNc: Negative vaginal discharge. MUSCULOSKELETAL: Negative for muscle aches, swelling, arthritis, and arthralgias. NEUROLOGIC: Negative for stroke or TIA. ENDOCRINE: Negative for thyroid problems. SKIN: Negative for rash or itching. PSYCHIATRIC: History of depression and anxiety ROS unobtainable: due to endotracheal tube, due to mental status Past Medical History Past Medical History: Coronary Artery Disease (CAD), Chest Pain / Angina, Heart Failure, CVA/TIA, Diabetes Mellitus, GERD/Reflux, Hyperlipidemia, Hypertension, Myocardial Infarction (CT), Osteoarthritis (OA), Syncope Additional Past Medical History / Comment(s): HX OF POLIO, PAD, ISCHEMIC CARDIOMYOPATHY., RT CATARACTS., USES WALKER. Last Myocardial Infarction Date:: 2012 History of Any Multi-Drug Resistant Organisms: None Reported Past Surgical History: AICD, Appendectomy, Section, Cholecystectomy, Coronary Bypass/CABG, Heart Catheterization, Heart Catheterization With Stent, Hysterectomy Additional Past Surgical History / Comment(s): ABIMBOLA CAROTID ENDARTERECTOMY., OVARIAN CYST., STENT LT SUBCLAVIAN - TOTAL 4 STENTS ., [employer] AICD. , LT CATARACT REMOVED, multi surgery in bilateral legs to open arteries to help with blood flow Past Anesthesia/Blood Transfusion Reactions: No Reported Reaction Date of Last Stent Placement:: 11/2014 Type of Cardiac Device: AICD Device Placement Date:: 2014 Past Psychological History: Anxiety, Depression Additional Psychological History / Comment(s): LIVES WITH SPOUSE, USES WALKER WHEN UP. DOES'NT DRIVE. 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 Smoking Status: Never smoker Past Alcohol Use History: None Reported Past Drug Use History: None Reported - Past Family History Father Family Medical History: Cancer Additional Family Medical History / Comment(s): pt. states her father had throat cancer Mother Family Medical History: Coronary Artery Disease (CAD), Hyperlipidemia, Hypertension Additional Family Medical History / Comment(s): CABG Medications and Allergies Home Medications Medication Instructions Recorded Confirmed Type Clopidogrel [Plavix] 75 mg PO DAILY@89911/22/14 04/07/18 History DULoxetine HCL [Cymbalta] 60 mg PO DAILY@89902/02/17 04/07/18 History Lansoprazole [Prevacid] 30 mg PO DAILY@89902/02/17 04/07/18 History Multivitamins, Thera [Multivitamin 1 tab PO DAILY@89906/16/17 04/07/18 History (formulary)] Ubidecarenone [Co Q-10] 400 mg PO DAILY@89906/16/17 04/07/18 History Bifidobacterium Infantis [Align] 4 mg PO DAILY@0900 09/18/17 04/07/18 History Nitroglycerin Sl Tabs [Nitrostat] 0.4 mg SUBLINGUAL Q5M PRN 09/18/17 04/07/18 History Calcium Carbonate 648mg 648 mg PO BID@09,21 10/31/17 04/07/18 History Dulaglutide [Trulicity] 0.75 mg SQ WE 10/31/17 04/07/18 History Fenofibrate [Lofibra] 160 mg PO DAILY@0900 10/31/17 04/07/18 History Gabapentin [Neurontin] 100 mg PO TID@0900,1200,1700 10/31/17 04/07/18 History INSULIN LISPRO (humaLOG) [humaLOG] 4 units SQ AC-TID@09,12,17 10/31/17 04/07/18 History INSULIN LISPRO (humaLOG) [humaLOG] See Protocol SQ ACHS 10/31/17 04/07/18 History Insulin Glargine [Lantus] 10 units SQ HS@2100 10/31/17 04/07/18 History Ketorolac 0.5% Ophth Soln [Acular 1 drops LEFT EYE BID 10/31/17 04/07/18 History 0.5%] Lifitegrast [Xiidra] 1 drop BOTH EYES BID 10/31/17 04/07/18 History Midodrine [ProAmatine] 10 mg PO TID@0800,1300,1700 #180 12/22/17 04/07/18 Rx tab Acetaminophen/Diphenhydramine 1 - 2 tab PO HS 04/07/18 04/07/18 History [Tylenol PM 500-25mg] Aspirin EC [Ecotrin Low Dose] 81 mg PO DAILY 04/07/18 04/07/18 History Atorvastatin [Lipitor] 80 mg PO HS 04/07/18 04/07/18 History Cholecalciferol (Vitamin D3) 2,000 unit PO DAILY 04/07/18 04/07/18 History [Vitamin D3] Lisinopril [Zestril] 5 mg PO DAILY 04/07/18 04/07/18 History Spironolactone [Aldactone] 25 mg PO DAILY 04/07/18 04/07/18 History Allergies Allergy/AdvReac Type Severity Reaction Status Date / Time adhesive Allergy Itching Verified 04/07/18 21:43 codeine Allergy Hallucinati Verified 04/07/18 21:43 ons dipyridamole Allergy heart Verified 04/07/18 21:43 [From Persantine] stopped latex AdvReac Rash/Hives Verified 04/07/18 21:43 metformin AdvReac "passed Verified 04/07/18 21:43 out" Physical Exam Vitals: Vital Signs Temp Pulse Pulse Resp BP BP Pulse Ox 04/08/18 10:00 130 H 21 140/87 98 04/08/18 09:30 147 H 21 137/62 99 04/08/18 09:00 110 H 20 135/80 100 04/08/18 08:30 110 H 21 100 04/08/18 08:00 97.5 F L 108 H 22 100 04/08/18 07:56 105 H 24 100 04/08/18 07:00 104 H 24 150/78 04/08/18 06:00 104 H 24 137/87 04/08/18 05:00 98.0 F 105 H 104 H 24 165/94 168/88 100 04/08/18 04:45 117 H 10 L 100 04/08/18 04:40 110 H 10 L 100 04/08/18 04:30 112 H 24 169/99 100 04/08/18 04:15 110 H 24 180/90 98 04/08/18 04:00 110 H 24 176/81 98 04/08/18 03:45 112 H 24 184/101 100 04/08/18 03:30 112 H 22 169/89 100 04/08/18 03:15 110 H 22 158/88 98 04/08/18 03:00 111 H 19 170/87 98 04/08/18 02:05 105 H 20 157/91 04/08/18 01:10 112 H 18 158/104 99 04/08/18 01:00 110 H 16 153/93 04/08/18 00:50 112 H 3 L 168/108 04/08/18 00:40 111 H 16 160/92 04/08/18 00:30 114 H 24 150/98 100 04/08/18 00:20 108 H 20 148/98 99 04/08/18 00:10 113 H 14 153/101 99 04/08/18 00:00 113 H 14 161/125 100 04/07/18 23:50 112 H 18 148/102 100 04/07/18 23:40 112 H 20 155/97 98 04/07/18 23:39 112 H 14 155/97 99 04/07/18 23:30 113 H 14 155/97 99 04/07/18 23:20 114 H 14 157/95 99 04/07/18 23:10 114 H 19 158/94 100 04/07/18 22:50 112 H 15 161/94 100 04/07/18 22:40 115 H 14 153/94 100 04/07/18 22:30 112 H 16 153/94 99 04/07/18 22:20 112 H 15 140/85 99 04/07/18 22:10 116 H 30 H 136/83 100 04/07/18 22:00 114 H 33 H 149/85 99 04/07/18 21:50 115 H 33 H 145/87 100 04/07/18 21:40 111 H 27 H 147/94 100 04/07/18 21:30 113 H 31 H 146/91 100 04/07/18 21:20 113 H 0 L 149/91 100 04/07/18 21:10 113 H 22 149/89 100 04/07/18 21:00 99.3 F 115 H 24 153/94 99 04/07/18 20:40 155/99 04/07/18 20:30 122 H 16 149/93 100 04/07/18 20:19 97.4 F L 120 H 24 149/93 95 Intake and Output 04/07/18 04/08/18 04/08/18 22:59 06:59 14:59 Intake Total 170 206.067 Output Total 10 450 Balance 160 -243.933 Intake: IV 150 Dextrose 5% in Water 1, 150 000 ml @ 50 mls/hr IV . Q23H NOE with Sodium Bicarb (1 Meq/ml) 150 ml Rx#:[id number] Intake, IV Titration 170 56.067 Amount Propofol 1,000 mg In 36.067 Empty Bag 1 bag @ Titrate IV .Q0M NOE Rx#: [id number] Sodium Chloride 0.9% 1, 170 000 ml @ 150 mls/hr IV . Q6H40M NOE Rx#:[id number] Sodium Chloride 0.9% 1, 20 000 ml @ 20 mls/hr IV . Q24H [facility] Rx#:[id number] Output: Urine 10 450 Other: Voiding Method Indwelling Catheter Indwelling Catheter Weight 58.967 kg 58.967 kg General appearance: The patient is intubated sedated. HEENT: Head is normocephalic and atraumatic. Pupils are equal and reactive. The nares are patent. Oropharynx is clear without lesions. Oral gastric tube with bilious fluid. Neck: Supple without lymphadenopathy. Trachea midline. Heart: S1 S2. Regular rate and rhythm. Lungs: No crackles or wheezes are heard. Abdomen: Soft, nontender, nondistended with good bowel sounds. No peritoneal signs. No palpable organomegaly or masses. Extremities: Normal skin color and turgor. No cyanosis, rash, ulceration, clubbing, or edema. Radial and pedal pulses are 2/4 bilaterally. Neurological: Cannot be assessed at this time since the patient is intubated and sedated. Results CBC & Chem 7: 04/08/18 04:42 04/08/18 04:42 Labs: Abnormal Lab Results - Last 24 Hours (Table) 04/07/18 04/07/18 04/07/18 Range/Units 20:25 20:25 20:25 WBC (3.8-10.6) k/uL MCV 79.2 L (80.0-100.0) fL MCH 24.9 L (25.0-35.0) pg MCHC (31.0-37.0) g/dL Neutrophils # 8.2 H (1.3-7.7) k/uL PT (9.0-12.0) sec INR (<1.2) ABG pH (7.35-7.45) ABG pCO2 (35-45) mmHg ABG pO2 (83-108) mmHg ABG HCO3 (21-25) mmol/L ABG Total CO2 (19-24) mmol/L ABG O2 Saturation (94-97) % Sodium 131 L (137-145) mmol/L Chloride 93 L (98-107) mmol/L Carbon Dioxide (22-30) mmol/L BUN 43 H (7-17) mg/dL Glucose 226 H (74-99) mg/dL POC Glucose (mg/dL) (75-99) mg/dL Plasma Lactic Acid Joshua (0.7-2.0) mmol/L Total Bilirubin 2.5 H (0.2-1.3) mg/dL AST 3607 H (14-36) U/L ALT 2075 H (9-52) U/L Alkaline Phosphatase 214 H (38-126) U/L CK-MB (CK-2) 2.6 H (0.0-2.4) ng/mL Troponin I (0.000-0.034) ng/mL Total Protein (6.3-8.2) g/dL HDL Cholesterol (40-60) mg/dL Urine Appearance (Clear) Ur Specific Russell (1.001-1.035) Urine Protein (Negative) Urine Glucose (UA) (Negative) Urine Ketones (Negative) Urine Blood (Negative) Urine Bilirubin (Negative) Ur Leukocyte Esterase (Negative) Urine RBC (0-5) /hpf Urine WBC (0-5) /hpf Urine WBC Clumps (None) /hpf Ur Squamous Epith Cells (0-4) /hpf Urine Bacteria (None) /hpf Hyaline Casts (0-2) /lpf Urine Mucus (None) /hpf 04/07/18 04/07/18 04/07/18 Range/Units 20:25 20:25 20:25 WBC (3.8-10.6) k/uL MCV (80.0-100.0) fL MCH (25.0-35.0) pg MCHC (31.0-37.0) g/dL Neutrophils # (1.3-7.7) k/uL PT 22.0 H (9.0-12.0) sec INR 2.4 H (<1.2) ABG pH (7.35-7.45) ABG pCO2 (35-45) mmHg ABG pO2 (83-108) mmHg ABG HCO3 (21-25) mmol/L ABG Total CO2 (19-24) mmol/L ABG O2 Saturation (94-97) % Sodium (137-145) mmol/L Chloride (98-107) mmol/L Carbon Dioxide (22-30) mmol/L BUN (7-17) mg/dL Glucose (74-99) mg/dL POC Glucose (mg/dL) (75-99) mg/dL Plasma Lactic Acid Joshua 5.2 H* (0.7-2.0) mmol/L Total Bilirubin (0.2-1.3) mg/dL AST (14-36) U/L ALT (9-52) U/L Alkaline Phosphatase (38-126) U/L CK-MB (CK-2) (0.0-2.4) ng/mL Troponin I (0.000-0.034) ng/mL Total Protein (6.3-8.2) g/dL HDL Cholesterol (40-60) mg/dL Urine Appearance Cloudy H (Clear) Ur Specific Russell (1.001-1.035) Urine Protein 1+ H (Negative) Urine Glucose (UA) Trace H (Negative) Urine Ketones 1+ H (Negative) Urine Blood Small H (Negative) Urine Bilirubin 1+ H (Negative) Ur Leukocyte Esterase Large H (Negative) Urine RBC 11 H (0-5) /hpf Urine WBC 81 H (0-5) /hpf Urine WBC Clumps (None) /hpf Ur Squamous Epith Cells (0-4) /hpf Urine Bacteria Rare H (None) /hpf Hyaline Casts 25 H (0-2) /lpf Urine Mucus Rare H (None) /hpf 04/07/18 04/07/18 04/08/18 Range/Units 20:25 21:25 00:55 WBC (3.8-10.6) k/uL MCV (80.0-100.0) fL MCH (25.0-35.0) pg MCHC (31.0-37.0) g/dL Neutrophils # (1.3-7.7) k/uL PT (9.0-12.0) sec INR (<1.2) ABG pH (7.35-7.45) ABG pCO2 (35-45) mmHg ABG pO2 (83-108) mmHg ABG HCO3 (21-25) mmol/L ABG Total CO2 (19-24) mmol/L ABG O2 Saturation (94-97) % Sodium (137-145) mmol/L Chloride (98-107) mmol/L Carbon Dioxide (22-30) mmol/L BUN (7-17) mg/dL Glucose (74-99) mg/dL POC Glucose (mg/dL) (75-99) mg/dL Plasma Lactic Acid Joshua 4.4 H* (0.7-2.0) mmol/L Total Bilirubin (0.2-1.3) mg/dL AST (14-36) U/L ALT (9-52) U/L Alkaline Phosphatase (38-126) U/L CK-MB (CK-2) (0.0-2.4) ng/mL Troponin I 0.238 H* (0.000-0.034) ng/mL Total Protein (6.3-8.2) g/dL HDL Cholesterol 20 L (40-60) mg/dL Urine Appearance (Clear) Ur Specific Russell (1.001-1.035) Urine Protein (Negative) Urine Glucose (UA) (Negative) Urine Ketones (Negative) Urine Blood (Negative) Urine Bilirubin (Negative) Ur Leukocyte Esterase (Negative) Urine RBC (0-5) /hpf Urine WBC (0-5) /hpf Urine WBC Clumps (None) /hpf Ur Squamous Epith Cells (0-4) /hpf Urine Bacteria (None) /hpf Hyaline Casts (0-2) /lpf Urine Mucus (None) /hpf 04/08/18 04/08/18 04/08/18 Range/Units 02:56 03:26 04:42 WBC 11.7 H (3.8-10.6) k/uL MCV (80.0-100.0) fL MCH 24.7 L (25.0-35.0) pg MCHC 30.2 L (31.0-37.0) g/dL Neutrophils # 9.4 H (1.3-7.7) k/uL PT (9.0-12.0) sec INR (<1.2) ABG pH (7.35-7.45) ABG pCO2 (35-45) mmHg ABG pO2 (83-108) mmHg ABG HCO3 (21-25) mmol/L ABG Total CO2 (19-24) mmol/L ABG O2 Saturation (94-97) % Sodium (137-145) mmol/L Chloride (98-107) mmol/L Carbon Dioxide (22-30) mmol/L BUN (7-17) mg/dL Glucose (74-99) mg/dL POC Glucose (mg/dL) 134 H (75-99) mg/dL Plasma Lactic Acid Joshua (0.7-2.0) mmol/L Total Bilirubin (0.2-1.3) mg/dL AST (14-36) U/L ALT (9-52) U/L Alkaline Phosphatase (38-126) U/L CK-MB (CK-2) (0.0-2.4) ng/mL Troponin I (0.000-0.034) ng/mL Total Protein (6.3-8.2) g/dL HDL Cholesterol (40-60) mg/dL Urine Appearance (Clear) Ur Specific Russell >1.050 H (1.001-1.035) Urine Protein 1+ H (Negative) Urine Glucose (UA) (Negative) Urine Ketones (Negative) Urine Blood Trace H (Negative) Urine Bilirubin (Negative) Ur Leukocyte Esterase (Negative) Urine RBC 6 H (0-5) /hpf Urine WBC 6 H (0-5) /hpf Urine WBC Clumps (None) /hpf Ur Squamous Epith Cells (0-4) /hpf Urine Bacteria (None) /hpf Hyaline Casts (0-2) /lpf Urine Mucus Rare H (None) /hpf 04/08/18 04/08/18 04/08/18 Range/Units 04:42 04:42 04:42 WBC (3.8-10.6) k/uL MCV (80.0-100.0) fL MCH (25.0-35.0) pg MCHC (31.0-37.0) g/dL Neutrophils # (1.3-7.7) k/uL PT 30.2 H (9.0-12.0) sec INR 3.4 H (<1.2) ABG pH (7.35-7.45) ABG pCO2 (35-45) mmHg ABG pO2 (83-108) mmHg ABG HCO3 (21-25) mmol/L ABG Total CO2 (19-24) mmol/L ABG O2 Saturation (94-97) % Sodium 135 L (137-145) mmol/L Chloride (98-107) mmol/L Carbon Dioxide 15 L (22-30) mmol/L BUN 39 H (7-17) mg/dL Glucose 137 H (74-99) mg/dL POC Glucose (mg/dL) (75-99) mg/dL Plasma Lactic Acid Joshua (0.7-2.0) mmol/L Total Bilirubin 3.3 H (0.2-1.3) mg/dL AST 2827 H (14-36) U/L ALT 1667 H (9-52) U/L Alkaline Phosphatase 235 H (38-126) U/L CK-MB (CK-2) 2.5 H (0.0-2.4) ng/mL Troponin I 0.213 H* (0.000-0.034) ng/mL Total Protein 6.2 L (6.3-8.2) g/dL HDL Cholesterol (40-60) mg/dL Urine Appearance (Clear) Ur Specific Russell (1.001-1.035) Urine Protein (Negative) Urine Glucose (UA) (Negative) Urine Ketones (Negative) Urine Blood (Negative) Urine Bilirubin (Negative) Ur Leukocyte Esterase (Negative) Urine RBC (0-5) /hpf Urine WBC (0-5) /hpf Urine WBC Clumps (None) /hpf Ur Squamous Epith Cells (0-4) /hpf Urine Bacteria (None) /hpf Hyaline Casts (0-2) /lpf Urine Mucus (None) /hpf 04/08/18 04/08/18 04/08/18 Range/Units 04:42 05:15 05:30 WBC (3.8-10.6) k/uL MCV (80.0-100.0) fL MCH (25.0-35.0) pg MCHC (31.0-37.0) g/dL Neutrophils # (1.3-7.7) k/uL PT (9.0-12.0) sec INR (<1.2) ABG pH (7.35-7.45) ABG pCO2 (35-45) mmHg ABG pO2 (83-108) mmHg ABG HCO3 (21-25) mmol/L ABG Total CO2 (19-24) mmol/L ABG O2 Saturation (94-97) % Sodium (137-145) mmol/L Chloride (98-107) mmol/L Carbon Dioxide (22-30) mmol/L BUN (7-17) mg/dL Glucose (74-99) mg/dL POC Glucose (mg/dL) 135 H (75-99) mg/dL Plasma Lactic Acid Joshua 7.6 H* (0.7-2.0) mmol/L Total Bilirubin (0.2-1.3) mg/dL AST (14-36) U/L ALT (9-52) U/L Alkaline Phosphatase (38-126) U/L CK-MB (CK-2) (0.0-2.4) ng/mL Troponin I (0.000-0.034) ng/mL Total Protein (6.3-8.2) g/dL HDL Cholesterol (40-60) mg/dL Urine Appearance Cloudy H (Clear) Ur Specific Russell 1.043 H (1.001-1.035) Urine Protein 1+ H (Negative) Urine Glucose (UA) (Negative) Urine Ketones Trace H (Negative) Urine Blood Moderate H (Negative) Urine Bilirubin 1+ H (Negative) Ur Leukocyte Esterase Large H (Negative) Urine RBC 64 H (0-5) /hpf Urine WBC 38 H (0-5) /hpf Urine WBC Clumps Many H (None) /hpf Ur Squamous Epith Cells 5 H (0-4) /hpf Urine Bacteria Rare H (None) /hpf Hyaline Casts (0-2) /lpf Urine Mucus Occasional H (None) /hpf 04/08/18 04/08/18 Range/Units 05:35 08:24 WBC (3.8-10.6) k/uL MCV (80.0-100.0) fL MCH (25.0-35.0) pg MCHC (31.0-37.0) g/dL Neutrophils # (1.3-7.7) k/uL PT (9.0-12.0) sec INR (<1.2) ABG pH 7.25 L (7.35-7.45) ABG pCO2 31 L (35-45) mmHg ABG pO2 397 H (83-108) mmHg ABG HCO3 14 L (21-25) mmol/L ABG Total CO2 15 L (19-24) mmol/L ABG O2 Saturation 98.6 H (94-97) % Sodium (137-145) mmol/L Chloride (98-107) mmol/L Carbon Dioxide (22-30) mmol/L BUN (7-17) mg/dL Glucose (74-99) mg/dL POC Glucose (mg/dL) (75-99) mg/dL Plasma Lactic Acid Joshua 5.9 H* (0.7-2.0) mmol/L Total Bilirubin (0.2-1.3) mg/dL AST (14-36) U/L ALT (9-52) U/L Alkaline Phosphatase (38-126) U/L CK-MB (CK-2) (0.0-2.4) ng/mL Troponin I (0.000-0.034) ng/mL Total Protein (6.3-8.2) g/dL HDL Cholesterol (40-60) mg/dL Urine Appearance (Clear) Ur Specific Russell (1.001-1.035) Urine Protein (Negative) Urine Glucose (UA) (Negative) Urine Ketones (Negative) Urine Blood (Negative) Urine Bilirubin (Negative) Ur Leukocyte Esterase (Negative) Urine RBC (0-5) /hpf Urine WBC (0-5) /hpf Urine WBC Clumps (None) /hpf Ur Squamous Epith Cells (0-4) /hpf Urine Bacteria (None) /hpf Hyaline Casts (0-2) /lpf Urine Mucus (None) /hpf Microbiology - Last 24 Hours (Table) 04/08/18 05:30 Urine Culture - Preliminary Urine,Catheterized 04/08/18 06:01 Sputum Culture - Preliminary Sputum 04/07/18 20:25 Urine Culture - Preliminary Urine,Voided CT scan - abdomen: report reviewed (Dr. Yap) Assessment and Plan (1) Elevated liver enzymes Narrative/Plan: Acute hepatocellular injury acute hepatic failure suspect shock liver with coagulopathy. 73-year-old female with a history of multiple medical comorbidities including CAD ischemic cardiomyopathy severe peripheral artery disease hypertension diabetes presents with changes in mental status generalized weakness and lethargy prior to admission. Current Visit: Yes Status: Acute Code(s): R74.8 - ABNORMAL LEVELS OF OTHER SERUM ENZYMES SNOMED Code(s): 721002722 (2) Respiratory failure Current Visit: Yes Status: Acute Code(s): J96.90 - RESPIRATORY FAILURE, UNSP , UNSP W HYPOXIA OR HYPERCAPNIA SNOMED Code(s): 357758109 (3) Ascites Current Visit: Yes Status: Acute Code(s): R18.8 - OTHER ASCITES SNOMED Code(s): 751717802 (4) Coagulopathy Current Visit: Yes Status: Acute Code(s): D68.9 - COAGULATION DEFECT, UNSPECIFIED SNOMED Code(s): 80287062 Plan: 1. Hepatitis screen. Daily monitoring of CMP PT/INR. Further recognitions to follow if LFTs do not improve. 2. No appreciable ascites on exam CT mentioned ascites but not enough for paracentesis at this time. We'll monitor on a daily basis. Thank you for this kind referral and the opportunity to participate in the care of your patient. This consultation was discussed with Dr. Yap. The impression and plan of care have been directed as dictated.
[2018-04-08 12:10] LABS: Glucose,Whole Blood 233 mg/dL (75-99)
[2018-04-08] MEDS: METOPROLOL TARTRATE 25 MG TAB PO SCH ×2 (12:47→21:01)
[2018-04-08] MEDS: MORPHINE SULFATE 2 MG/ML SYRINGE IVP PRN ×2 (12:48→18:17)
--- NOTE | 2018-04-08 12:50 | ECHOF ---
Referral Reason:chf MEASUREMENTS -------- HEIGHT: 157.5 cm WEIGHT: 59.0 kg BP: RVIDd: 2.6 cm (< 3.3) IVSd: 1.3 cm (0.6 - 1.1) LVIDd: 4.9 cm (3.9 - 5.3) LVPWd: 1.0 cm (0.6 - 1.1) IVSs: 1.4 cm LVIDs: 4.6 cm LVPWs: 1.2 cm LA Diam: 3.9 cm (2.7 - 3.8) LAESV Index (A-L): 29.51 ml/m Ao Diam: 2.8 cm (2.0 - 3.7) AV Cusp: 1.6 cm (1.5 - 2.6) MV EXCURSION: 16.703 mm (> 18.000) MV EF SLOPE: 128 mm/s (70 - 150) EPSS: 1.1 cm RAP: 15.00 mmHg RVSP: 59.83 mmHg FINDINGS -------- Paced rhythm. This was a technically good study. The left ventricular size is normal. There is borderline concentric left ventricular hypertrophy. Overall left ventricular systolic function is severely impaired with, an EF < 20%. The right ventricle is normal in size. LA is midly dilated 29-33ml/m2. The right atrium is normal in size. Aortic valve is trileaflet and is mildly thickened. Trace to mild aortic regurgitation. The mitral valve leaflets are mildly thickened. Mild mitral annular calcification present. Modera pw-jf-lewbvj mitral regurgitation is present. Edgu-hu-zmguoyrb tricuspid regurgitation present. There is severe pulmonary hypertension. The rig ht ventricular systolic pressure, as measured by Doppler, is 59.83mmHg. Trace/mild (physiologic) pulmonic regurgitation. The aortic root size is normal. Normal inferior vena cava with less than 50% inspiratory collapse consistent with estimated right atr ial pressure of 15 mmHg. There is no pericardial effusion. Moderate Pleural Effusion. CONCLUSIONS -------- 1. Paced rhythm. 2. This was a technically good study. 3. The left ventricular size is normal. 4. There is borderline concentric left ventricular hypertrophy. 5. Overall left ventricular systolic function is severely impaired with, an EF < 20%. 6. The right ventricle is normal in size. 7. LA is midly dilated 29-33ml/m2. 8. The right atrium is normal in size. 9. Aortic valve is trileaflet and is mildly thickened. 10. Trace to mild aortic regurgitation. 11. The mitral valve leaflets are mildly thickened. 12. Mild mitral annular calcification present. 13. [id number] mitral regurgitation is present. 14. [id number]-ffvbfypz tricuspid regurgitation present. 15. There is severe pulmonary hypertension. 16. The right ventricular systolic pressure, as measured by Doppler, is 59.83mmHg. 17. Trace/mild (physiologic) pulmonic regurgitation. 18. The aortic root size is normal. 19. Normal inferior vena cava with less than 50% inspiratory collapse consistent with estimated right atrial pressure of 15 mmHg. 20. There is no pericardial effusion. 21. Moderate Pleural Effusion. [employer]EN[employer] WORKER: Cathryn Palacio RDCS
[2018-04-08 13:29] LABS: Glucose,Whole Blood 252 mg/dL (75-99)
[2018-04-08] MEDS ORDERED: INSULIN ASPART 100 UNIT/ML 1 ML 10 ML VIAL SQ SCH (14:00)
[2018-04-08] MEDS ORDERED: DILTIAZEM DRIP BOLUS FROM BAG 1 MG SOLN IV ONE (14:30)
[2018-04-08 15:23] LABS: INR 3.1 (<1.2); Prothrombin Time 27.5 sec (9.0-12.0)
[2018-04-08] MEDS: PHYTONADIONE 10 MG in SODIUM CHLORIDE 0.9% 50 ML IVPB SCH (15:46)
[2018-04-08] MEDS: DILTIAZEM 50 MG in SODIUM CHLORIDE 0.9% 40 ML IV SCH ×2 (15:49→20:50)
[2018-04-08 15:57] LABS: Glucose,Whole Blood 275 mg/dL (75-99)
--- NOTE | 2018-04-08 16:38 | P.HPIM ---
History of Present Illness H&P Date: 04/08/18 Chief Complaint: Weakness abdominal pain and weight loss This is a 73-year-old female one of Dr. Latha Amezcua with a previous medical history significant for coronary artery disease status post coronary artery bypass graft with ischemic cardio myopathy and percutaneous coronary intervention and a total of 4 stents placement last one was put in the LAD back in November 2014, AICD placement, cardiomyopathy EF 43%, CABG with ischemic heart disease, patent HA, saphenous vein graft to RCA, 100% occluded circumflex with collaterals, recent echocardiogram revealed echo 20-25% with severe global hypokinesia, moderate MR, moderate pulmonary hypertension October 2017 echocardiogram.history of left subclavian stenosis status post stenting, carotid artery disease status post bilateral carotid endarterectomies, severe peripheral arterial occlusive disease, vasculitis , severe PAD with recent endovascular placement of aortic stent for occlusive disease of the aorta, left iliac stent, fem-fem bypass with greater saphenous vein at [facility]. [facility]ie at [facility], her arterial ulcers in the legs have since then resolved after vascular intervention. She has a tilt table positive test with drop on systolic blood pressure, required florinef Patient complained of early satiety, bloating, weight loss, was seen in the office and was prescribed Reglan, no antibiotic was given, patient now comes in with increasing fatigue, started getting around the house, altered mentation, no melena hematochezia, no diarrhea, has chills, she comes in septic, she got into respiratory failure, 4 hours after initial ER evaluation, requiring intubation. In the emergency room. Her liver function tests in December were normal, however on presentation, ammonia was 9 troponin 0.2 lactic acid 5.2 BUN 43 creatinine 0.9 bilirubin 2.5 AST 3607 ALT 2075, the basic count 10.2 INR 2.4 patient is not on any anticoagulation at home urinalysis shows significant pyuria of 81 with many WBC clumping noted cloudy urine specific gravity of 1.043 , urine drug screen negative.. CAT scan of the abdomen shows moderate L3-L4 bony spinal stenosis, sigmoid diverticulosis without diverticulitis, mild ascites, decreased density lower lobe right kidney related to renal ischemia and no evidence of renal mass patchy atelectasis lung bases prior cholecystectomy no mesenteric edema Patient currently is in ICU, sedated, mechanical ventilation tidal volume 400 assist control 20 FiO2 45% with PEEP of 5 patient is not responsive to any stimuli, follows in the ICU by multiple specialists including administrative office manager Dr. Madrid, cardiology, GI, services Review of Systems ROS unobtainable: due to endotracheal tube Constitutional: Reports as per HPI Ears, nose, mouth and throat: Reports as per HPI Cardiovascular: Reports as per HPI Respiratory: Reports as per HPI Gastrointestinal: Reports as per HPI Genitourinary: Reports as per HPI Menstruation: Reports as per HPI Musculoskeletal: Reports as per HPI Integumentary: Reports as per HPI Neurological: Reports as per HPI Psychiatric: Reports as per HPI Endocrine: Reports as per HPI Hematologic/Lymphatic: Reports as per HPI Allergic/Immunologic: Reports as per HPI Past Medical History Past Medical History: Coronary Artery Disease (CAD), Chest Pain / Angina, Heart Failure, CVA/TIA, Diabetes Mellitus, GERD/Reflux, Hyperlipidemia, Hypertension, Myocardial Infarction (CT), Osteoarthritis (OA), Syncope Additional Past Medical History / Comment(s): HX OF POLIO, PAD, ISCHEMIC CARDIOMYOPATHY., RT CATARACTS., USES WALKER. Last Myocardial Infarction Date:: 2012 History of Any Multi-Drug Resistant Organisms: None Reported Past Surgical History: AICD, Appendectomy, Section, Cholecystectomy, Coronary Bypass/CABG, Heart Catheterization, Heart Catheterization With Stent, Hysterectomy Additional Past Surgical History / Comment(s): ABIMBOLA CAROTID ENDARTERECTOMY., OVARIAN CYST., STENT LT SUBCLAVIAN - TOTAL 4 STENTS ., [employer] AICD. , LT CATARACT REMOVED, multi surgery in bilateral legs to open arteries to help with blood flow Past Anesthesia/Blood Transfusion Reactions: No Reported Reaction Date of Last Stent Placement:: 11/2014 Type of Cardiac Device: AICD Device Placement Date:: 2014 Smoking Status: Never smoker - Past Family History Father Family Medical History: Cancer Additional Family Medical History / Comment(s): pt. states her father had throat cancer Mother Family Medical History: Coronary Artery Disease (CAD), Hyperlipidemia, Hypertension Additional Family Medical History / Comment(s): CABG Medications and Allergies Home Medications Medication Instructions Recorded Confirmed Type Clopidogrel [Plavix] 75 mg PO DAILY@0900 11/22/14 04/07/18 History DULoxetine HCL [Cymbalta] 60 mg PO DAILY@0902/02/17 04/07/18 History Lansoprazole [Prevacid] 30 mg PO DAILY@0900 02/02/17 04/07/18 History Multivitamins, Thera [Multivitamin 1 tab PO DAILY@0900 06/16/17 04/07/18 History (formulary)] Ubidecarenone [Co Q-10] 400 mg PO DAILY@0900 06/16/17 04/07/18 History Bifidobacterium Infantis [Align] 4 mg PO DAILY@0900 09/18/17 04/07/18 History Nitroglycerin Sl Tabs [Nitrostat] 0.4 mg SUBLINGUAL Q5M PRN 09/18/17 04/07/18 History Calcium Carbonate 648mg 648 mg PO BID@,10/31/17 04/07/18 History Dulaglutide [Trulicity] 0.75 mg SQ WE 10/31/17 04/07/18 History Fenofibrate [Lofibra] 160 mg PO DAILY@0900 10/31/17 04/07/18 History Gabapentin [Neurontin] 100 mg PO TID@0900,1200,1700 10/31/17 04/07/18 History INSULIN LISPRO (humaLOG) [humaLOG] 4 units SQ AC-TID@09,12,17 10/31/17 04/07/18 History INSULIN LISPRO (humaLOG) [humaLOG] See Protocol SQ ACHS 10/31/17 04/07/18 History Insulin Glargine [Lantus] 10 units SQ HS@2100 10/31/17 04/07/18 History Ketorolac 0.5% Ophth Soln [Acular 1 drops LEFT EYE BID 10/31/17 04/07/18 History 0.5%] Lifitegrast [Xiidra] 1 drop BOTH EYES BID 10/31/17 04/07/18 History Midodrine [ProAmatine] 10 mg PO TID@0800,1300,1700 #180 12/22/17 04/07/18 Rx tab Acetaminophen/Diphenhydramine 1 - 2 tab PO HS 04/07/18 04/07/18 History [Tylenol PM 500-25mg] Aspirin EC [Ecotrin Low Dose] 81 mg PO DAILY 04/07/18 04/07/18 History Atorvastatin [Lipitor] 80 mg PO HS 04/07/18 04/07/18 History Cholecalciferol (Vitamin D3) 2,000 unit PO DAILY 04/07/18 04/07/18 History [Vitamin D3] Lisinopril [Zestril] 5 mg PO DAILY 04/07/18 04/07/18 History Spironolactone [Aldactone] 25 mg PO DAILY 04/07/18 04/07/18 History Allergies Allergy/AdvReac Type Severity Reaction Status Date / Time adhesive Allergy Itching Verified 04/07/18 21:43 codeine Allergy Hallucinati Verified 04/07/18 21:43 ons dipyridamole Allergy heart Verified 04/07/18 21:43 [From Persantine] stopped latex AdvReac Rash/Hives Verified 04/07/18 21:43 metformin AdvReac "passed Verified 04/07/18 21:43 out" Physical Exam Vitals: Vital Signs Temp Pulse Pulse Resp BP BP Pulse Ox 04/08/18 15:37 122 H 04/08/18 15:07 105 H 04/08/18 11:45 122 H 04/08/18 11:28 135 H 04/08/18 10:00 130 H 21 140/87 98 04/08/18 09:30 147 H 21 137/62 99 04/08/18 09:00 110 H 20 135/80 100 04/08/18 08:30 110 H 21 100 04/08/18 08:00 97.5 F L 108 H 22 100 04/08/18 07:56 105 H 24 100 04/08/18 07:00 104 H 24 150/78 04/08/18 06:00 104 H 24 137/87 04/08/18 05:00 98.0 F 105 H 104 H 24 165/94 168/88 100 04/08/18 04:45 117 H 10 L 100 04/08/18 04:40 110 H 10 L 100 04/08/18 04:30 112 H 24 169/99 100 04/08/18 04:15 110 H 24 180/90 98 04/08/18 04:00 110 H 24 176/81 98 04/08/18 03:45 112 H 24 184/101 100 04/08/18 03:30 112 H 22 169/89 100 04/08/18 03:15 110 H 22 158/88 98 04/08/18 03:00 111 H 19 170/87 98 04/08/18 02:05 105 H 20 157/91 04/08/18 01:10 112 H 18 158/104 99 04/08/18 01:00 110 H 16 153/93 04/08/18 00:50 112 H 3 L 168/108 04/08/18 00:40 111 H 16 160/92 04/08/18 00:30 114 H 24 150/98 100 04/08/18 00:20 108 H 20 148/98 99 04/08/18 00:10 113 H 14 153/101 99 04/08/18 00:00 113 H 14 161/125 100 04/07/18 23:50 112 H 18 148/102 100 04/07/18 23:40 112 H 20 155/97 98 04/07/18 23:39 112 H 14 155/97 99 04/07/18 23:30 113 H 14 155/97 99 04/07/18 23:20 114 H 14 157/95 99 04/07/18 23:10 114 H 19 158/94 100 04/07/18 22:50 112 H 15 161/94 100 18 22:40 115 H 14 153/94 100 04/07/18 22:30 112 H 16 153/94 99 04/07/18 22:20 112 H 15 140/85 99 04/07/18 22:10 116 H 30 H 136/83 100 04/07/18 22:00 114 H 33 H 149/85 99 04/07/18 21:50 115 H 33 H 145/87 100 04/07/18 21:40 111 H 27 H 147/94 100 04/07/18 21:30 113 H 31 H 146/91 100 04/07/18 21:20 113 H 0 L 149/91 100 04/07/18 21:10 113 H 22 149/89 100 04/07/18 21:00 99.3 F 115 H 24 153/94 99 04/07/18 20:40 155/99 04/07/18 20:30 122 H 16 149/93 100 04/07/18 20:19 97.4 F L 120 H 24 149/93 95 Intake and Output 04/08/18 04/08/18 04/08/18 06:59 14:59 22:59 Intake Total 170 206.067 Output Total 10 450 Balance 160 -243.933 Intake: IV 150 Dextrose 5% in Water 1, 150 000 ml @ 50 mls/hr IV . Q23H NOE with Sodium Bicarb (1 Meq/ml) 150 ml Rx#:[id number] Intake, IV Titration 170 56.067 Amount Propofol 1,000 mg In 36.067 Empty Bag 1 bag @ Titrate IV .Q0M NOE Rx#: [id number] Sodium Chloride 0.9% 1, 170 000 ml @ 150 mls/hr IV . Q6H40M NOE Rx#:[id number] Sodium Chloride 0.9% 1, 20 000 ml @ 20 mls/hr IV . Q24H STA Rx#:[id number] Output: Urine 10 450 Other: Voiding Method Indwelling Catheter Indwelling Catheter Weight 58.967 kg - Constitutional General appearance: average body habitus, no acute distress - EENT Eyes: anicteric sclerae, PERRLA, normal appearance ENT: NA/AT - Neck Neck: normal ROM - Respiratory Respiratory: bilateral: CTA, diminished, negative: dullness, rales, rhonchi - Cardiovascular Rhythm: regular Heart sounds: normal: S1, S2 Abnormal Heart Sounds: systolic murmur - Gastrointestinal General gastrointestinal: decreased bowel sounds, soft - Integumentary Integumentary: decreased turgor, normal - Musculoskeletal Unable sedated on vent Results CBC & Chem 7: 04/08/18 04:42 04/08/18 04:42 Labs: Abnormal Lab Results - Last 24 Hours (Table) 04/07/18 04/07/18 04/07/18 Range/Units 20:25 20:25 20:25 WBC (3.8-10.6) k/uL MCV 79.2 L (80.0-100.0) fL MCH 24.9 L (25.0-35.0) pg MCHC (31.0-37.0) g/dL Neutrophils # 8.2 H (1.3-7.7) k/uL PT (9.0-12.0) sec INR (<1.2) ABG pH (7.35-7.45) ABG pCO2 (35-45) mmHg ABG pO2 (83-108) mmHg ABG HCO3 (21-25) mmol/L ABG Total CO2 (19-24) mmol/L ABG O2 Saturation (94-97) % Sodium 131 L (137-145) mmol/L Chloride 93 L (98-107) mmol/L Carbon Dioxide (22-30) mmol/L BUN 43 H (7-17) mg/dL Glucose 226 H (74-99) mg/dL POC Glucose (mg/dL) (75-99) mg/dL Plasma Lactic Acid Joshua (0.7-2.0) mmol/L Total Bilirubin 2.5 H (0.2-1.3) mg/dL AST 3607 H (14-36) U/L ALT 2075 H (9-52) U/L Alkaline Phosphatase 214 H (38-126) U/L CK-MB (CK-2) 2.6 H (0.0-2.4) ng/mL Troponin I (0.000-0.034) ng/mL Total Protein (6.3-8.2) g/dL HDL Cholesterol (40-60) mg/dL Urine Appearance (Clear) Ur Specific [place] (1.001-1.035) Urine Protein (Negative) Urine Glucose (UA) (Negative) Urine Ketones (Negative) Urine Blood (Negative) Urine Bilirubin (Negative) Ur Leukocyte Esterase (Negative) Urine RBC (0-5) /hpf Urine WBC (0-5) /hpf Urine WBC Clumps (None) /hpf Ur Squamous Epith Cells (0-4) /hpf Urine Bacteria (None) /hpf Hyaline Casts (0-2) /lpf Urine Mucus (None) /hpf 04/07/18 04/07/18 04/07/18 Range/Units 20:25 20:25 20:25 WBC (3.8-10.6) k/uL MCV (80.0-100.0) fL MCH (25.0-35.0) pg MCHC (31.0-37.0) g/dL Neutrophils # (1.3-7.7) k/uL PT 22.0 H (9.0-12.0) sec INR 2.4 H (<1.2) ABG pH (7.35-7.45) ABG pCO2 (35-45) mmHg ABG pO2 (83-108) mmHg ABG HCO3 (21-25) mmol/L ABG Total CO2 (19-24) mmol/L ABG O2 Saturation (94-97) % Sodium (137-145) mmol/L Chloride (98-107) mmol/L Carbon Dioxide (22-30) mmol/L BUN (7-17) mg/dL Glucose (74-99) mg/dL POC Glucose (mg/dL) (75-99) mg/dL Plasma Lactic Acid Joshua 5.2 H* (0.7-2.0) mmol/L Total Bilirubin (0.2-1.3) mg/dL AST (14-36) U/L ALT (9-52) U/L Alkaline Phosphatase (38-126) U/L CK-MB (CK-2) (0.0-2.4) ng/mL Troponin I (0.000-0.034) ng/mL Total Protein (6.3-8.2) g/dL HDL Cholesterol (40-60) mg/dL Urine Appearance Cloudy H (Clear) Ur Specific [place] (1.001-1.035) Urine Protein 1+ H (Negative) Urine Glucose (UA) Trace H (Negative) Urine Ketones 1+ H (Negative) Urine Blood Small H (Negative) Urine Bilirubin 1+ H (Negative) Ur Leukocyte Esterase Large H (Negative) Urine RBC 11 H (0-5) /hpf Urine WBC 81 H (0-5) /hpf Urine WBC Clumps (None) /hpf Ur Squamous Epith Cells (0-4) /hpf Urine Bacteria Rare H (None) /hpf Hyaline Casts 25 H (0-2) /lpf Urine Mucus Rare H (None) /hpf 04/07/18 04/07/18 04/08/18 Range/Units 20:25 21:25 00:55 WBC (3.8-10.6) k/uL MCV (80.0-100.0) fL MCH (25.0-35.0) pg MCHC (31.0-37.0) g/dL Neutrophils # (1.3-7.7) k/uL PT (9.0-12.0) sec INR (<1.2) ABG pH (7.35-7.45) ABG pCO2 (35-45) mmHg ABG pO2 (83-108) mmHg ABG HCO3 (21-25) mmol/L ABG Total CO2 (19-24) mmol/L ABG O2 Saturation (94-97) % Sodium (137-145) mmol/L Chloride (98-107) mmol/L Carbon Dioxide (22-30) mmol/L BUN (7-17) mg/dL Glucose (74-99) mg/dL POC Glucose (mg/dL) (75-99) mg/dL Plasma Lactic Acid Joshua 4.4 H* (0.7-2.0) mmol/L Total Bilirubin (0.2-1.3) mg/dL AST (14-36) U/L ALT (9-52) U/L Alkaline Phosphatase (38-126) U/L CK-MB (CK-2) (0.0-2.4) ng/mL Troponin I 0.238 H* (0.000-0.034) ng/mL Total Protein (6.3-8.2) g/dL HDL Cholesterol 20 L (40-60) mg/dL Urine Appearance (Clear) Ur Specific [place] (1.001-1.035) Urine Protein (Negative) Urine Glucose (UA) (Negative) Urine Ketones (Negative) Urine Blood (Negative) Urine Bilirubin (Negative) Ur Leukocyte Esterase (Negative) Urine RBC (0-5) /hpf Urine WBC (0-5) /hpf Urine WBC Clumps (None) /hpf Ur Squamous Epith Cells (0-4) /hpf Urine Bacteria (None) /hpf Hyaline Casts (0-2) /lpf Urine Mucus (None) /hpf 04/08/18 04/08/18 04/08/18 Range/Units 02:56 03:26 04:42 WBC 11.7 H (3.8-10.6) k/uL MCV (80.0-100.0) fL MCH 24.7 L (25.0-35.0) pg MCHC 30.2 L (31.0-37.0) g/dL Neutrophils # 9.4 H (1.3-7.7) k/uL PT (9.0-12.0) sec INR (<1.2) ABG pH (7.35-7.45) ABG pCO2 (35-45) mmHg ABG pO2 (83-108) mmHg ABG HCO3 (21-25) mmol/L ABG Total CO2 (19-24) mmol/L ABG O2 Saturation (94-97) % Sodium (137-145) mmol/L Chloride (98-107) mmol/L Carbon Dioxide (22-30) mmol/L BUN (7-17) mg/dL Glucose (74-99) mg/dL POC Glucose (mg/dL) 134 H (75-99) mg/dL Plasma Lactic Acid Joshua (0.7-2.0) mmol/L Total Bilirubin (0.2-1.3) mg/dL AST (14-36) U/L ALT (9-52) U/L Alkaline Phosphatase (38-126) U/L CK-MB (CK-2) (0.0-2.4) ng/mL Troponin I (0.000-0.034) ng/mL Total Protein (6.3-8.2) g/dL HDL Cholesterol (40-60) mg/dL Urine Appearance (Clear) Ur Specific [place] >1.050 H (1.001-1.035) Urine Protein 1+ H (Negative) Urine Glucose (UA) (Negative) Urine Ketones (Negative) Urine Blood Trace H (Negative) Urine Bilirubin (Negative) Ur Leukocyte Esterase (Negative) Urine RBC 6 H (0-5) /hpf Urine WBC 6 H (0-5) /hpf Urine WBC Clumps (None) /hpf Ur Squamous Epith Cells (0-4) /hpf Urine Bacteria (None) /hpf Hyaline Casts (0-2) /lpf Urine Mucus Rare H (None) /hpf 04/08/18 04/08/18 04/08/18 Range/Units 04:42 04:42 04:42 WBC (3.8-10.6) k/uL MCV (80.0-100.0) fL MCH (25.0-35.0) pg MCHC (31.0-37.0) g/dL Neutrophils # (1.3-7.7) k/uL PT 30.2 H (9.0-12.0) sec INR 3.4 H (<1.2) ABG pH (7.35-7.45) ABG pCO2 (35-45) mmHg ABG pO2 (83-108) mmHg ABG HCO3 (21-25) mmol/L ABG Total CO2 (19-24) mmol/L ABG O2 Saturation (94-97) % Sodium 135 L (137-145) mmol/L Chloride (98-107) mmol/L Carbon Dioxide 15 L (22-30) mmol/L BUN 39 H (7-17) mg/dL Glucose 137 H (74-99) mg/dL POC Glucose (mg/dL) (75-99) mg/dL Plasma Lactic Acid Joshua (0.7-2.0) mmol/L Total Bilirubin 3.3 H (0.2-1.3) mg/dL AST 2827 H (14-36) U/L ALT 1667 H (9-52) U/L Alkaline Phosphatase 235 H (38-126) U/L CK-MB (CK-2) 2.5 H (0.0-2.4) ng/mL Troponin I 0.213 H* (0.000-0.034) ng/mL Total Protein 6.2 L (6.3-8.2) g/dL HDL Cholesterol (40-60) mg/dL Urine Appearance (Clear) Ur Specific [place] (1.001-1.035) Urine Protein (Negative) Urine Glucose (UA) (Negative) Urine Ketones (Negative) Urine Blood (Negative) Urine Bilirubin (Negative) Ur Leukocyte Esterase (Negative) Urine RBC (0-5) /hpf Urine WBC (0-5) /hpf Urine WBC Clumps (None) /hpf Ur Squamous Epith Cells (0-4) /hpf Urine Bacteria (None) /hpf Hyaline Casts (0-2) /lpf Urine Mucus (None) /hpf 04/08/18 04/08/18 04/08/18 Range/Units 04:42 05:15 05:30 WBC (3.8-10.6) k/uL MCV (80.0-100.0) fL MCH (25.0-35.0) pg MCHC (31.0-37.0) g/dL Neutrophils # (1.3-7.7) k/uL PT (9.0-12.0) sec INR (<1.2) ABG pH (7.35-7.45) ABG pCO2 (35-45) mmHg ABG pO2 (83-108) mmHg ABG HCO3 (21-25) mmol/L ABG Total CO2 (19-24) mmol/L ABG O2 Saturation (94-97) % Sodium (137-145) mmol/L Chloride (98-107) mmol/L Carbon Dioxide (22-30) mmol/L BUN (7-17) mg/dL Glucose (74-99) mg/dL POC Glucose (mg/dL) 135 H (75-99) mg/dL Plasma Lactic Acid Joshua 7.6 H* (0.7-2.0) mmol/L Total Bilirubin (0.2-1.3) mg/dL AST (14-36) U/L ALT (9-52) U/L Alkaline Phosphatase (38-126) U/L CK-MB (CK-2) (0.0-2.4) ng/mL Troponin I (0.000-0.034) ng/mL Total Protein (6.3-8.2) g/dL HDL Cholesterol (40-60) mg/dL Urine Appearance Cloudy H (Clear) Ur Specific [place] 1.043 H (1.001-1.035) Urine Protein 1+ H (Negative) Urine Glucose (UA) (Negative) Urine Ketones Trace H (Negative) Urine Blood Moderate H (Negative) Urine Bilirubin 1+ H (Negative) Ur Leukocyte Esterase Large H (Negative) Urine RBC 64 H (0-5) /hpf Urine WBC 38 H (0-5) /hpf Urine WBC Clumps Many H (None) /hpf Ur Squamous Epith Cells 5 H (0-4) /hpf Urine Bacteria Rare H (None) /hpf Hyaline Casts (0-2) /lpf Urine Mucus Occasional H (None) /hpf 04/08/18 04/08/18 04/08/18 Range/Units 05:35 08:24 12:08 WBC (3.8-10.6) k/uL MCV (80.0-100.0) fL MCH (25.0-35.0) pg MCHC (31.0-37.0) g/dL Neutrophils # (1.3-7.7) k/uL PT (9.0-12.0) sec INR (<1.2) ABG pH 7.25 L (7.35-7.45) ABG pCO2 31 L (35-45) mmHg ABG pO2 397 H (83-108) mmHg ABG HCO3 14 L (21-25) mmol/L ABG Total CO2 15 L (19-24) mmol/L ABG O2 Saturation 98.6 H (94-97) % Sodium (137-145) mmol/L Chloride (98-107) mmol/L Carbon Dioxide (22-30) mmol/L BUN (7-17) mg/dL Glucose (74-99) mg/dL POC Glucose (mg/dL) 233 H (75-99) mg/dL Plasma Lactic Acid Joshua 5.9 H* (0.7-2.0) mmol/L Total Bilirubin (0.2-1.3) mg/dL AST (14-36) U/L ALT (9-52) U/L Alkaline Phosphatase (38-126) U/L CK-MB (CK-2) (0.0-2.4) ng/mL Troponin I (0.000-0.034) ng/mL Total Protein (6.3-8.2) g/dL HDL Cholesterol (40-60) mg/dL Urine Appearance (Clear) Ur Specific [place] (1.001-1.035) Urine Protein (Negative) Urine Glucose (UA) (Negative) Urine Ketones (Negative) Urine Blood (Negative) Urine Bilirubin (Negative) Ur Leukocyte Esterase (Negative) Urine RBC (0-5) /hpf Urine WBC (0-5) /hpf Urine WBC Clumps (None) /hpf Ur Squamous Epith Cells (0-4) /hpf Urine Bacteria (None) /hpf Hyaline Casts (0-2) /lpf Urine Mucus (None) /hpf 04/08/18 04/08/18 04/08/18 Range/Units 13:27 14:44 15:53 WBC (3.8-10.6) k/uL MCV (80.0-100.0) fL MCH (25.0-35.0) pg MCHC (31.0-37.0) g/dL Neutrophils # (1.3-7.7) k/uL PT 27.5 H (9.0-12.0) sec INR 3.1 H (<1.2) ABG pH (7.35-7.45) ABG pCO2 (35-45) mmHg ABG pO2 (83-108) mmHg ABG HCO3 (21-25) mmol/L ABG Total CO2 (19-24) mmol/L ABG O2 Saturation (94-97) % Sodium (137-145) mmol/L Chloride (98-107) mmol/L Carbon Dioxide (22-30) mmol/L BUN (7-17) mg/dL Glucose (74-99) mg/dL POC Glucose (mg/dL) 252 H 275 H (75-99) mg/dL Plasma Lactic Acid Joshua (0.7-2.0) mmol/L Total Bilirubin (0.2-1.3) mg/dL AST (14-36) U/L ALT (9-52) U/L Alkaline Phosphatase (38-126) U/L CK-MB (CK-2) (0.0-2.4) ng/mL Troponin I (0.000-0.034) ng/mL Total Protein (6.3-8.2) g/dL HDL Cholesterol (40-60) mg/dL Urine Appearance (Clear) Ur Specific [place] (1.001-1.035) Urine Protein (Negative) Urine Glucose (UA) (Negative) Urine Ketones (Negative) Urine Blood (Negative) Urine Bilirubin (Negative) Ur Leukocyte Esterase (Negative) Urine RBC (0-5) /hpf Urine WBC (0-5) /hpf Urine WBC Clumps (None) /hpf Ur Squamous Epith Cells (0-4) /hpf Urine Bacteria (None) /hpf Hyaline Casts (0-2) /lpf Urine Mucus (None) /hpf Microbiology - Last 24 Hours (Table) 04/08/18 05:30 Urine Culture - Preliminary Urine,Catheterized 04/08/18 06:01 Sputum Culture - Preliminary Sputum 04/07/18 20:25 Urine Culture - Preliminary Urine,Voided Laboratory Results WBC 11.7 k/uL (3.8-10.6) H 04/08/18 04:42 RBC 4.71 m/uL (3.80-5.40) 04/08/18 04:42 Hgb 11.6 gm/dL (11.4-16.0) 04/08/18 04:42 Hct 38.6 % (34.0-46.0) 04/08/18 04:42 MCV 81.8 fL (80.0-100.0) 04/08/18 04:42 MCH 24.7 pg (25.0-35.0) L 04/08/18 04:42 MCHC 30.2 g/dL (31.0-37.0) L 04/08/18 04:42 RDW 14.7 % (11.5-15.5) 04/08/18 04:42 Plt Count 187 k/uL (150-450) 04/08/18 04:42 Neutrophils % 81 % 04/08/18 04:42 Lymphocytes % 10 % 04/08/18 04:42 Monocytes % 7 % 04/08/18 04:42 Eosinophils % 0 % 04/08/18 04:42 Basophils % 0 % 04/08/18 04:42 Neutrophils # 9.4 k/uL (1.3-7.7) H 04/08/18 04:42 Lymphocytes # 1.2 k/uL (1.0-4.8) 04/08/18 04:42 Monocytes # 0.8 k/uL (0-1.0) 04/08/18 04:42 Eosinophils # 0.0 k/uL (0-0.7) 04/08/18 04:42 Basophils # 0.0 k/uL (0-0.2) 04/08/18 04:42 Hypochromasia Marked 04/08/18 04:42 Poikilocytosis Slight 04/07/18 20:25 PT 27.5 sec (9.0-12.0) H 04/08/18 14:44 INR 3.1 (<1.2) H 04/08/18 14:44 APTT 24.9 sec (22.0-30.0) 04/08/18 04:42 Sample Site oneill 04/08/18 05:35 ABG pH 7.25 (7.35-7.45) L 04/08/18 05:35 ABG pCO2 31 mmHg (35-45) L 04/08/18 05:35 ABG pO2 397 mmHg (83-108) H 04/08/18 05:35 ABG HCO3 14 mmol/L (21-25) L 04/08/18 05:35 ABG Total CO2 15 mmol/L (19-24) L 04/08/18 05:35 ABG O2 Saturation 98.6 % (94-97) H 04/08/18 05:35 ABG Base Excess -13.6 mmol/L 04/08/18 05:35 Des Test Yes 04/08/18 05:35 FiO2 100 % 04/08/18 05:35 Sodium 135 mmol/L (137-145) L 04/08/18 04:42 Potassium 4.7 mmol/L (3.5-5.1) 04/08/18 04:42 Chloride 102 mmol/L (98-107) 04/08/18 04:42 Carbon Dioxide 15 mmol/L (22-30) L 04/08/18 04:42 Anion Gap 18 mmol/L 04/08/18 04:42 BUN 39 mg/dL (7-17) H 04/08/18 04:42 Creatinine 0.99 mg/dL (0.52-1.04) 04/08/18 04:42 Est GFR (CKD-EPI)AfAm 67 (>60 ml/min/1.73 sqM) 04/08/18 04:42 Est GFR (CKD-EPI)NonAf 58 (>60 ml/min/1.73 sqM) 04/08/18 04:42 Glucose 137 mg/dL (74-99) H 04/08/18 04:42 POC Glucose (mg/dL) 275 mg/dL (75-99) H 04/08/18 15:53 POC Glu Overhead [employer] ID [place], [place] 04/08/18 15:53 Lactic Ac Sepsis Rflx Y 04/08/18 05:08 Plasma Lactic Acid Joshua 5.9 mmol/L (0.7-2.0) H* 04/08/18 08:24 Calcium 9.0 mg/dL (8.4-10.2) 04/08/18 04:42 Phosphorus 2.5 mg/dL (2.5-4.5) 04/07/18 20:25 Magnesium 1.6 mg/dL (1.6-2.3) 04/07/18 20:25 Total Bilirubin 3.3 mg/dL (0.2-1.3) H 04/08/18 04:42 AST 2827 U/L (14-36) H 04/08/18 04:42 ALT 1667 U/L (9-52) H 04/08/18 04:42 Alkaline Phosphatase 235 U/L (38-126) H 04/08/18 04:42 Ammonia <9 umol/L (<30) 04/08/18 04:42 Total Creatine Kinase 104 U/L (30-135) 04/08/18 04:42 CK-MB (CK-2) 2.5 ng/mL (0.0-2.4) H 04/08/18 04:42 CK-MB (CK-2) Rel Index 2.4 04/08/18 04:42 Troponin I 0.213 ng/mL (0.000-0.034) H* 04/08/18 04:42 Total Protein 6.2 g/dL (6.3-8.2) L 04/08/18 04:42 Albumin 3.5 g/dL (3.5-5.0) 04/08/18 04:42 Triglycerides 105 mg/dL (<150) 04/07/18 21:25 Cholesterol 97 mg/dL (<200) 04/07/18 21: LDL Cholesterol, Calc 56 mg/dL (0-99) 04/07/18 21: HDL Cholesterol 20 mg/dL (40-60) L 04/07/18 21:25 Lipase 263 U/L (23-300) 04/07/18 21:25 Urine Color Yellow 04/08/18 05:30 Urine Appearance Cloudy (Clear) H 04/08/18 05:30 Urine pH 5.5 (5.0-8.0) 04/08/18 05:30 Ur Specific [place] 1.043 (1.001-1.035) H 04/08/18 05:30 Urine Protein 1+ (Negative) H 04/08/18 05:30 Urine Glucose (UA) Negative (Negative) 04/08/18 05:30 Urine Ketones Trace (Negative) H 04/08/18 05:30 Urine Blood Moderate (Negative) H 04/08/18 05:30 Urine Nitrite Negative (Negative) 04/08/18 05:30 Urine Bilirubin 1+ (Negative) H 04/08/18 05:30 Urine Urobilinogen 4.0 mg/dL (<2.0) 04/08/18 05:30 Ur Leukocyte Esterase Large (Negative) H 04/08/18 05:30 Urine RBC 64 /hpf (0-5) H 04/08/18 05:30 Urine WBC 38 /hpf (0-5) H 04/08/18 05:30 Urine WBC Clumps Many /hpf (None) H 04/08/18 05:30 Ur Squamous Epith Cells 5 /hpf (0-4) H 04/08/18 05:30 Urine Bacteria Rare /hpf (None) H 04/08/18 05:30 Hyaline Casts 25 /lpf (0-2) H 04/07/18 20:25 Urine Mucus Occasional /hpf (None) H 04/08/18 05:30 Urine Opiates Screen Not Detected (NotDetected) 04/08/18 02:56 Ur Oxycodone Screen Not Detected (NotDetected) 04/08/18 02:56 Urine Methadone Screen Not Detected (NotDetected) 04/08/18 02:56 Ur Propoxyphene Screen Not Detected (NotDetected) 04/08/18 02:56 Acetaminophen <10.0 ug/mL 04/07/18 20:25 Ur Barbiturates Screen Not Detected (NotDetected) 04/08/18 02:56 U Tricyclic Antidepress Not Detected (NotDetected) 04/08/18 02:56 Ur Phencyclidine Scrn Not Detected (NotDetected) 04/08/18 02:56 Ur Amphetamines Screen Not Detected (NotDetected) 04/08/18 02:56 U Methamphetamines Scrn Not Detected (NotDetected) 04/08/18 02:56 U Benzodiazepines Scrn Not Detected (NotDetected) 04/08/18 02:56 Urine Cocaine Screen Not Detected (NotDetected) 04/08/18 02:56 U Marijuana (THC) Screen Not Detected (NotDetected) 04/08/18 02:56 Assessment and Plan Plan: 1. Sepsis with altered organ failure including acute hypoxemic respiratory failure, shock liver, hypoperfusion related to sepsis, lactic acidosis urinary tract infection seems to be the primary source, patient was in consultation by multiple specialists including critical care medicine, neurology, might need infectious disease depending on clinical outcomes, Rocephin 1 g daily IV, pancultures obtained 2. Congestive heart failure, Lasix IV 80 mg every 12 hours Acute on chronic CK D stage II, monitor for renal hypoperfusion related to hypovolemia, maintain fluid resuscitation, 3. Elevated troponin most likely secondary to septic shock, cardiology is consulted, echocardiogram requested 4. CAD post CABGand stent placements with ischemic cardiopathy post AICD. continue risk modifications,beta blockers would be continued with parameters on holding metoprolol, lisinopril and Imdur is on hold 5. Acute liver failure possibly secondary to septic shock against passive CHF, patient also has underlying coagulopathy, patient has had also weight loss for the past few months, other labs include JAMMIE, and CA 19 CEA AFP, GI is on consult. Prior history of cholecystectomy, hepatitis panel requested 6. Severe PAD post evaluation by vascular surgery status post recent endovascular placement of aortic stent for occlusive disease of the aorta, left iliac stent, and fem-fem bypass with great saphenous vein at [facility]. Continue Pletal 100 mg orally twice every day. 7. Carotid artery disease status post carotid endarterectomies. We will restart once stable following :aspirin, Plavix, Lipitor for secondary prevention. 8. Ucontrolled diabetes mellitus type 2 with PVD complications, neuropathy, currently on insulin correctional scale while nothing by mouth on a vent. home meds was on Lantus 10 units daily NovoLog scale with 4 units pre-meal 3 times a day, on trulicity. along with the Humalog per sliding scale. Continue BGM before each meal and bedtime. 7. Hypertension and hypertensive cardio vascular disease. lisinopril on hold secondary to hypotension, Imdur and hold, metoprolol will be held based on systolic blood pressure less than 100 IV Cardizem per cardiology 8. Hyperlipidemia. Hold patient on Lipitor 80 mg orally once every day. Dietary acute liver failure 9. History of left subclavian stenosis. Post stenting. Stable at this time. 10. History of GERD. IV Protonix daily is on Prevacid daily 11. Vitamin D deficiency. Hold patient on vitamin D 1000 units once every day. 12. Depression. Continue Cymbalta 60 mg orally once every day. 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 14. 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 15 History of left subclavianstenosis status post stenting 16 spinal stenosis L3-L4, L4-L5, severe R L3-L4 area with moderate severe spinal stenosis posterior disc bulging with facet arthropathy, based on CAT scan 09/20/2017physical therapy, might need consult with Dr. Crocker DVT prophylaxis. GI prophylaxis. Continue PPI. 15. Admit to inpatient. Estimated length of stay 2 midnights. 16. Patient is full code. 17. Autonomic dysfunction Recurrent falls, physical therapy and occupational therapy to see the patient when stabilized
[2018-04-08] MEDS ORDERED: MIDODRINE 5 MG TAB PO SCH (17:00)
[2018-04-08 20:05] LABS: Glucose,Whole Blood 255 mg/dL (75-99)
[2018-04-08] MEDS: INSULIN ASPART 100 UNIT/ML 1 ML 10 ML VIAL SQ SCH (20:55)
[2018-04-08] MEDS: FUROSEMIDE 10 MG/ML 10 ML VIAL IV SCH (21:04)
[2018-04-09 00:12] LABS: Glucose,Whole Blood 236 mg/dL (75-99)
[2018-04-09] MEDS: INSULIN ASPART 100 UNIT/ML 1 ML 10 ML VIAL SQ SCH ×2 (00:15→04:30)
[2018-04-09] MEDS: IPRATROPIUM-ALBUTEROL 3 ML NEB INHALATION SCH ×7 (00:18→22:59)
[2018-04-09] MEDS: DILTIAZEM 50 MG in SODIUM CHLORIDE 0.9% 40 ML IV SCH ×3 (01:15→12:19)
[2018-04-09 02:59] LABS: Cancer Antigen 19-9 18.3 U/mL (0.0-34.9)
[2018-04-09 04:12] LABS: Hemoglobin A1C 7.1 % (4.0-6.0)
[2018-04-09 04:13] LABS: Glucose,Whole Blood 272 mg/dL (75-99)
[2018-04-09 04:15] LABS: Hepatitis A Antibody IgM Non-Reactive (Non-Reactive); Hepatitis B Core IgM Non-Reactive (Non-Reactive)
[2018-04-09] MEDS ORDERED: INSULIN REGULAR BOLUS (FROM DRIP BAG) IV PRN (04:20)
[2018-04-09 04:46] LABS: Albumin 2.6 g/dL (3.5-5.0); Calcium 8.2 mg/dL (8.4-10.2); Magnesium 1.4 mg/dL (1.6-2.3); Potassium 2.9 mmol/L (3.5-5.1); Total Bilirubin 1.9 mg/dL (0.2-1.3); Total Protein 4.9 g/dL (6.3-8.2)
[2018-04-09 04:47] LABS: HCT 31.7 % (34.0-46.0); HGB 10.1 gm/dL (11.4-16.0); Hypochromasia Moderate; MCH 24.7 pg (25.0-35.0); MCHC 31.8 g/dL (31.0-37.0); MCV 77.9 fL (80.0-100.0); Mean Platelet Volume 9.6; Platelet Count 129 k/uL (150-450); Poikilocytosis Slight; RBC 4.07 m/uL (3.80-5.40); WBC 8.7 k/uL (3.8-10.6)
[2018-04-09 04:48] LABS: INR 2.3 (<1.2)
[2018-04-09 04:50] LABS: Glucose,Whole Blood 262 mg/dL (75-99)
[2018-04-09] MEDS: INSULIN REGULAR 100 UNIT in SODIUM CHLORIDE 0.9% 100 ML IV SCH (04:52)
[2018-04-09 05:01] LABS: Gliadin AB IgA, Unit 1.5 U/mL
[2018-04-09 05:39] LABS: Glucose,Whole Blood 264 mg/dL (75-99)
[2018-04-09] MEDS: PROPOFOL 1,000 MG in EMPTY BAG 1 BAG IV SCH (05:39)
[2018-04-09] MEDS ORDERED: Potassium Replacement Protocol 1 EACH MISC MISCELLANE PRN (05:46)
[2018-04-09] MEDS ORDERED: Magnesium Replacement Protocol 1 EACH MISC MISCELLANE PRN (05:46)
[2018-04-09 06:03] LABS: ABG Base Excess 7.6 mmol/L; ABG HCO3 29 mmol/L (21-25); ABG Oxygen Saturation 97.4 % (94-97); ABG PCO2 30 mmHg (35-45); ABG PO2 113 mmHg (83-108); ABG TCO2 30 mmol/L (19-24)
[2018-04-09] MEDS: DEXTROSE 5% IN WATER 1,000 ML with SODIUM BICARB (1 MEQ/ML) 150 ML IV SCH (06:16)
[2018-04-09 06:43] LABS: Glucose,Whole Blood 215 mg/dL (75-99)
[2018-04-09] MEDS: MAGNESIUM SULFATE-D5W PMX 1 GM in DEXTROSE/WATER 1 100ML.BAG IVPB SCH ×3 (06:45→09:04)
[2018-04-09] MEDS: POTASSIUM BICARBONATE/CIT AC 20 MEQ TABLET.EFF NG-TUBE SCH ×4 (06:45→15:03)
--- NOTE | 2018-04-09 07:10 | XR ---
EXAMINATION TYPE: XR chest 1V portable DATE OF EXAM: 04/09/2018 COMPARISON: 04/08/2018 HISTORY: SOB, Follow Up FINDINGS: Indwelling tubes and catheters are unchanged. No change in bibasilar opacities. There is improved pulmonary venous congestion. Stable appearance of the cardio-mediastinal structures at this time. Pleural effusion unchanged. IMPRESSION: 1. Pulmonary venous congestion otherwise Stable portable chest. Clinical correlation and follow up until resolution is recommended.
--- NOTE | 2018-04-09 07:36 | OP ---
OPERATIVE REPORT OPERATION: Placement of a left radial arterial line. PREOPERATIVE DIAGNOSIS: Acute hypoxic respiratory failure. POSTOPERATIVE DIAGNOSIS: Acute hypoxic respiratory failure. ANESTHESIA: None deployed. PROCEDURE: The patient was placed in the supine position, the left wrist was prepared in a sterile fashion and drapes were applied. The left radial artery was palpated, cannulated, and a guidewire was placed. A Cook catheter was inserted over the guidewire, and the guidewire was removed. Good blood flow and good waveform were noted. No evidence of any immediate complications. The line was secured using 3.0 silk sutures. MMODL / IJN: [id number] /
[2018-04-09 08:28] LABS: Glucose,Whole Blood 211 mg/dL (75-99)
[2018-04-09] MEDS: METOPROLOL TARTRATE 25 MG TAB PO SCH ×4 (09:05→21:50)
[2018-04-09] MEDS: CHLORHEXIDINE GLUCONATE 15 ML CUP MUCOUS MEM SCH ×2 (09:05→22:02)
[2018-04-09] MEDS: PANTOPRAZOLE 40 MG/10 ML VIAL IVP SCH (09:05)
[2018-04-09] MEDS: DULoxetine HCL 60 MG CAPSULE.DR PO SCH (09:05)
[2018-04-09] MEDS: ENOXAPARIN 30 MG/0.3 ML SYRINGE SQ SCH (09:05)
[2018-04-09] MEDS: FUROSEMIDE 10 MG/ML 10 ML VIAL IV SCH ×2 (09:05→21:50)
[2018-04-09 09:11] LABS: Glucose,Whole Blood 171 mg/dL (75-99)
--- NOTE | 2018-04-09 10:14 | P.PN ---
Subjective Progress Note Date: 04/09/18 Principal diagnosis: Acute hypoxic respiratory failure requiring intubation and mechanical ventilation. This is a 73-year-old female with history of multiple medical problems including coronary artery disease, ischemic cardiomyopathy, peripheral vessel occlusive disease with bilateral carotid endarterectomy, CABG, subclavian stent placement and multiple peripheral stents placed in the past, patient obviously has severe vasculopathy. Severe peripheral vessel occlusive disease involving lower extremities. Previous AICD placement 4 severe ischemic cardiomyopathy. Patient was last admitted to [facility] about 3 months ago, at that time she was admitted with recurrent syncope and multiple falls secondary to recurrent syncope. Patient was seen by many consultants during the last admission, and she was eventually discharged home on 12/29/2017. During that admission the patient had tilt table test that showed orthostatic drop in blood pressure without any symptoms. Patient was placed on Florinef by cardiology. Last night the patient presented to the ER with altered mental status, and according to the family she was not acting appropriately, she was confused, and there was questionable right-sided weakness noted by EMS upon arrival. Workup in the ER included CT of the brain, CT of the abdomen and pelvis, chest x-ray, CT angiogram of the brain, EKG, workup was basically nondiagnostic except for the chest x-ray showing some evidence of pulmonary edema. Her liver enzymes were noted to be significantly elevated. With significantly elevated transaminases, and total bilirubin was 3.3. Her urinalysis showed evidence of pyuria and bacteriuria, and wild in the ER, just before transferring the patient to the ICU, patient deteriorated, and her respiration became agonal. Patient was intubated by the ER physician, and transferred to the ICU. I saw the patient in the ICU, presently sedated, on propofol at 30 mcg/kg/m, she is on mechanical ventilation with tidal volume of 400, assist control rate of 20 FiO2 45% and PEEP of 5. Her peak airway pressure is 28, and plateau pressure is 14. Patient is not responsive to any stimuli. Her pupils seem to be pinpoint. ABG post intubation showed it be O2 of 397 pCO2 of 31, pH of 7.5. Apparently the patient was developing significant metabolic acidosis, could be related to global hypoperfusion could also be related to sepsis, assuming the most likely source would be the urine. Her initial lactic acid was 7.6, follow- up lactic acid post fluid boluses of 2 L, came back down to 5.9. Patient was reevaluated today on 04/09/2018, remains on mechanical ventilation, and her ventilator settings are assist control rate of 16 but I cut it down to 14, tidal volume of 400, FiO2 45%, and PEEP is 5. Patient remains on Cardizem drip, and I have discontinued her bicarb drip. Remains on propofol at 50 mcg/kg /m. Patient remains unresponsive to any deep painful stimuli, even after stopping propofol, patient was noted to grimace only to deep painful stimuli. Labs were reviewed her ABG showed a pO2 of 113 pCO2 of 30 and pH of 7.60. Hence I discontinued sodium bicarb drip, and I adjusted the ventilator settings to a lower assist control rate of 14. Advised the nurses to hold propofol, and I would like to assess her mental status off propofol. Her pupils are pinpoint , hence I recommended a neurological evaluation on this patient. She may have sustained some encephalopathy/anoxic brain injury. Objective - Vital Signs Vital signs: Vital Signs Temp 97.4 F L 04/09/18 04:00 Pulse 71 04/09/18 09:15 Resp 15 04/09/18 07:00 BP 124/65 04/09/18 02:00 Pulse Ox 100 04/09/18 07:00 Intake & Output 04/08/18 04/09/18 04/09/18 18:59 06:59 18:59 Intake Total 372.549 3333.319 35.874 Output Total 1010 1015 150 Balance -190.000 383.319 -114.126 Weight 58.967 kg 59.9 kg Intake: IV 590 665 5 Dextrose 5% in Water 1, 550 550 000 ml @ 50 mls/hr IV . Q23H [facility]E with Sodium Bicarb (1 Meq/ml) 150 ml Rx#:[id number] Diltiazem 50 mg In Sodium 40 115 5 Chloride 0.9% 40 ml @ 5 MG/HR 5 mls/hr IV .Q10H NOE Rx#:[id number] Intake, IV Titration 170.000 423.319 10.874 Amount Diltiazem 50 mg In Sodium 137.834 Chloride 0.9% 40 ml @ 5 MG/HR 5 mls/hr IV .Q10H [facility] Rx#:[id number] Insulin Regular 100 unit 11.211 10.874 In Sodium Chloride 0.9% 100 ml @ Per Protocol IV .Q0M [facility]E Rx#:[id number] Phytonadione 10 mg In 50 10 Sodium Chloride 0.9% 50 ml @ 100 mls/hr IVPB Q24H [facility] Rx#:[id number] Propofol 1,000 mg In 100.000 264.274 Empty Bag 1 bag @ Titrate IV .Q0M NOE Rx#: [id number] Sodium Chloride 0.9% 1, 20 000 ml @ 20 mls/hr IV . Q24H [facility] Rx#:[id number] Tube Feeding 30 220 20 Other 30 90 Output: Urine 1010 1015 150 Other: Voiding Method Indwelling Catheter Indwelling Catheter ABP, PAP, CO, CI - Last Documented Arterial Blood Pressure 146/59 - Exam Physical Exam: Revealed a 73-year-old female sedated, on mechanical ventilation , grimaces to deep painful stimuli, pupils are pinpoint. Head: Atraumatic, normocephalic. Dry mucous membranes noted. HEENT:[Neck is supple.] [No neck masses.] [No thyromegaly.] [No JVD.] Positive icterus. dry mucous membranes. Endotracheal tube and orogastric tube are intact. Chest: [Crackles and rhonchi noted bilaterally, symmetrical expansion, no chest wall tenderness. Cardiac Exam: [Normal S1 and S2, no S3 gallop, no murmur.] Abdomen: [Soft, nontender, no megaly, no rebound, no guarding, normal bowel sounds.] Extremities: [No clubbing, no edema, no cyanosis.] Diminished distal pulses bilaterally. Neurological Exam: Cannot be assessed, patient is sedated, presently unresponsive to painful stimuli. Pupils are pinpoint. Grimaces only to deep painful stimuli. However she is on propofol which I would hold temporarily. Psychiatric: Cannot be assessed. Skin: No rashes. - Labs CBC & Chem 7: 04/09/18 04:13 04/09/18 04:13 Labs: Abnormal Lab Results - Last 24 Hours (Table) 04/08/18 04/08/18 04/08/18 Range/Units 12:08 13:27 14:44 Hgb (11.4-16.0) gm/dL Hct (34.0-46.0) % MCV (80.0-100.0) fL MCH (25.0-35.0) pg Plt Count (150-450) k/uL PT 27.5 H (9.0-12.0) sec INR 3.1 H (<1.2) ABG pH (7.35-7.45) ABG pCO2 (35-45) mmHg ABG pO2 (83-108) mmHg ABG HCO3 (21-25) mmol/L ABG Total CO2 (19-24) mmol/L ABG O2 Saturation (94-97) % Sodium (137-145) mmol/L Potassium (3.5-5.1) mmol/L Chloride (98-107) mmol/L BUN (7-17) mg/dL Creatinine (0.52-1.04) mg/dL Glucose (74-99) mg/dL POC Glucose (mg/dL) 233 H 252 H (75-99) mg/dL Hemoglobin A1c (4.0-6.0) % Calcium (8.4-10.2) mg/dL Phosphorus (2.5-4.5) mg/dL Magnesium (1.6-2.3) mg/dL Total Bilirubin (0.2-1.3) mg/dL AST (14-36) U/L ALT (9-52) U/L Alkaline Phosphatase (38-126) U/L Total Protein (6.3-8.2) g/dL Albumin (3.5-5.0) g/dL 04/08/18 04/08/18 04/08/18 Range/Units 15:53 16:15 20:03 Hgb (11.4-16.0) gm/dL Hct (34.0-46.0) % MCV (80.0-100.0) fL MCH (25.0-35.0) pg Plt Count (150-450) k/uL PT (9.0-12.0) sec INR (<1.2) ABG pH (7.35-7.45) ABG pCO2 (35-45) mmHg ABG pO2 (83-108) mmHg ABG HCO3 (21-25) mmol/L ABG Total CO2 (19-24) mmol/L ABG O2 Saturation (94-97) % Sodium (137-145) mmol/L Potassium (3.5-5.1) mmol/L Chloride (98-107) mmol/L BUN (7-17) mg/dL Creatinine (0.52-1.04) mg/dL Glucose (74-99) mg/dL POC Glucose (mg/dL) 275 H 255 H (75-99) mg/dL Hemoglobin A1c 7.1 H (4.0-6.0) % Calcium (8.4-10.2) mg/dL Phosphorus (2.5-4.5) mg/dL Magnesium (1.6-2.3) mg/dL Total Bilirubin (0.2-1.3) mg/dL AST (14-36) U/L ALT (9-52) U/L Alkaline Phosphatase (38-126) U/L Total Protein (6.3-8.2) g/dL Albumin (3.5-5.0) g/dL 04/09/18 04/09/18 04/09/18 Range/Units 00:10 04:12 04:13 Hgb 10.1 L (11.4-16.0) gm/dL Hct 31.7 L (34.0-46.0) % MCV 77.9 L (80.0-100.0) fL MCH 24.7 L (25.0-35.0) pg Plt Count 129 L (150-450) k/uL PT (9.0-12.0) sec INR (<1.2) ABG pH (7.35-7.45) ABG pCO2 (35-45) mmHg ABG pO2 (83-108) mmHg ABG HCO3 (21-25) mmol/L ABG Total CO2 (19-24) mmol/L ABG O2 Saturation (94-97) % Sodium (137-145) mmol/L Potassium (3.5-5.1) mmol/L Chloride (98-107) mmol/L BUN (7-17) mg/dL Creatinine (0.52-1.04) mg/dL Glucose (74-99) mg/dL POC Glucose (mg/dL) 236 H 272 H (75-99) mg/dL Hemoglobin A1c (4.0-6.0) % Calcium (8.4-10.2) mg/dL Phosphorus (2.5-4.5) mg/dL Magnesium (1.6-2.3) mg/dL Total Bilirubin (0.2-1.3) mg/dL AST (14-36) U/L ALT (9-52) U/L Alkaline Phosphatase (38-126) U/L Total Protein (6.3-8.2) g/dL Albumin (3.5-5.0) g/dL 04/09/18 04/09/18 04/09/18 Range/Units 04:13 04:13 04:13 Hgb (11.4-16.0) gm/dL Hct (34.0-46.0) % MCV (80.0-100.0) fL MCH (25.0-35.0) pg Plt Count (150-450) k/uL PT 21.0 H (9.0-12.0) sec INR 2.3 H (<1.2) ABG pH (7.35-7.45) ABG pCO2 (35-45) mmHg ABG pO2 (83-108) mmHg ABG HCO3 (21-25) mmol/L ABG Total CO2 (19-24) mmol/L ABG O2 Saturation (94-97) % Sodium 133 L (137-145) mmol/L Potassium 2.9 L (3.5-5.1) mmol/L Chloride 97 L (98-107) mmol/L BUN 46 H (7-17) mg/dL Creatinine 1.13 H (0.52-1.04) mg/dL Glucose 251 H (74-99) mg/dL POC Glucose (mg/dL) (75-99) mg/dL Hemoglobin A1c (4.0-6.0) % Calcium 8.2 L (8.4-10.2) mg/dL Phosphorus 2.3 L (2.5-4.5) mg/dL Magnesium 1.4 L (1.6-2.3) mg/dL Total Bilirubin 1.9 H (0.2-1.3) mg/dL AST 2107 H (14-36) U/L ALT 1471 H (9-52) U/L Alkaline Phosphatase 178 H (38-126) U/L Total Protein 4.9 L (6.3-8.2) g/dL Albumin 2.6 L (3.5-5.0) g/dL 04/09/18 04/09/18 04/09/18 Range/Units 04:49 05:36 06:00 Hgb (11.4-16.0) gm/dL Hct (34.0-46.0) % MCV (80.0-100.0) fL MCH (25.0-35.0) pg Plt Count (150-450) k/uL PT (9.0-12.0) sec INR (<1.2) ABG pH 7.60 H* (7.35-7.45) ABG pCO2 30 L (35-45) mmHg ABG pO2 113 H (83-108) mmHg ABG HCO3 29 H (21-25) mmol/L ABG Total CO2 30 H (19-24) mmol/L ABG O2 Saturation 97.4 H (94-97) % Sodium (137-145) mmol/L Potassium (3.5-5.1) mmol/L Chloride (98-107) mmol/L BUN (7-17) mg/dL Creatinine (0.52-1.04) mg/dL Glucose (74-99) mg/dL POC Glucose (mg/dL) 262 H 264 H (75-99) mg/dL Hemoglobin A1c (4.0-6.0) % Calcium (8.4-10.2) mg/dL Phosphorus (2.5-4.5) mg/dL Magnesium (1.6-2.3) mg/dL Total Bilirubin (0.2-1.3) mg/dL AST (14-36) U/L ALT (9-52) U/L Alkaline Phosphatase (38-126) U/L Total Protein (6.3-8.2) g/dL Albumin (3.5-5.0) g/dL 04/09/18 04/09/18 04/09/18 Range/Units 06:42 08:25 09:09 Hgb (11.4-16.0) gm/dL Hct (34.0-46.0) % MCV (80.0-100.0) fL MCH (25.0-35.0) pg Plt Count (150-450) k/uL PT (9.0-12.0) sec INR (<1.2) ABG pH (7.35-7.45) ABG pCO2 (35-45) mmHg ABG pO2 (83-108) mmHg ABG HCO3 (21-25) mmol/L ABG Total CO2 (19-24) mmol/L ABG O2 Saturation (94-97) % Sodium (137-145) mmol/L Potassium (3.5-5.1) mmol/L Chloride (98-107) mmol/L BUN (7-17) mg/dL Creatinine (0.52-1.04) mg/dL Glucose (74-99) mg/dL POC Glucose (mg/dL) 215 H 211 H 171 H (75-99) mg/dL Hemoglobin A1c (4.0-6.0) % Calcium (8.4-10.2) mg/dL Phosphorus (2.5-4.5) mg/dL Magnesium (1.6-2.3) mg/dL Total Bilirubin (0.2-1.3) mg/dL AST (14-36) U/L ALT (9-52) U/L Alkaline Phosphatase (38-126) U/L Total Protein (6.3-8.2) g/dL Albumin (3.5-5.0) g/dL Microbiology - Last 24 Hours (Table) 04/07/18 20:25 Blood Culture - Preliminary Blood No Growth after 24 hours 04/07/18 20:25 Urine Culture - Preliminary Urine,Voided Gram Neg Bacilli 04/08/18 06:01 Gram Stain - Preliminary Sputum Sputum Culture - Preliminary 04/08/18 Unknown Urine Culture - Preliminary Urine,Catheterized 04/08/18 05:30 Urine Culture - Preliminary Urine,Catheterized Assessment and Plan Assessment: Impression: 1 acute hypoxic respiratory failure secondary to congestive heart failure, systolic in nature patient is known to have history of ischemic cardiomyopathy. And LV dysfunction. Chest x-ray today continues to show pulmonary venous congestion and possibly left-sided pleural effusion. 2 acute urinary tract infection, strongly suspect sepsis secondary to UTI. 3 acute shock liver with elevated transaminases most likely secondary to hypoperfusion. 4 coronary artery disease and previous CABG with stent placements and ischemic cardiomyopathy post-AICD. 5 severe peripheral artery disease and multiple endovascular placement of stents including aortic stent left iliac femoral-femoral bypass surgery and great saphenous vein at [facility]. 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 14 history of recurrent episodes of syncope secondary to orthostatic hypotension. 15 history of mixed hyperlipidemia. Recommendation: Continue ventilatory support, discontinue sodium bicarb, continue nutritional support, initiated neurological consultation, continue GI and DVT prophylaxis, patient remains critically ill, I am mostly concerned about the possibility of underlying anoxic brain injury. That is yet to be determined. Continue empiric antibiotics for presumptive urinary tract infection. Continue bronchodilators. Continue Cardizem and the rate could be cut down to 5 mg per hour. Continue cardiac meds. Continue to monitor liver enzymes, they seem to be trending down. Address electrolytes on a daily basis, monitor renal status daily. We'll continue to follow. Critical care time is 34 minutes Time with Patient: Greater than 30
[2018-04-09 11:01] LABS: Glucose,Whole Blood 175 mg/dL (75-99)
[2018-04-09 11:53] LABS: Glucose,Whole Blood 169 mg/dL (75-99)
[2018-04-09] MEDS: GABAPENTIN 100 MG CAP PO SCH ×2 (12:19→18:03)
--- NOTE | 2018-04-09 12:45 | PN ---
PROGRESS NOTE HISTORY: Ms. Colon is a 73-year-old female, known history of severe ischemic cardiomyopathy, history of peripheral disease, coronary bypass grafting, peripheral vessel disease, who presented with symptoms of respiratory failure with congestive heart failure and systolic dysfunction as well as urinary tract infection. She remains intubated and sedated. Hemodynamically she is stable. There is no evidence of ventricular ectopic activity. She continues to be on Cardizem drip. She is on unresponsive to stimulation. She continues to be on the IV Cardizem, Plavix 75 mg daily, furosemide 80 mg IV every 12 hours, metoprolol tartrate 25 mg twice a day. PHYSICAL EXAMINATION: Blood pressure running in the 115s with a heart in the 80s. Lungs clear anteriorly. Heart S1 and S2 with a systolic murmur, no diastolic murmur, no rub. Abdomen is soft. Positive bowel sounds. No organomegaly. Extremities, no significant edema. Neurologically she is unresponsive. LAB DATA: Revealed pH 7.6, pCO2 of 30, PO2 of 113. BUN and creatinine 46 and 1.13. Her AST is 2107, ALT 1471. Her INR is 2.3. IMPRESSION: 1. Respiratory failure with a combination of congestive heart failure, probably on the basis of systolic dysfunction with some element of infectious process. 2. Possible anoxic encephalopathy. 3. History of severe ischemic cardiomyopathy. 4. History of coronary artery bypass grafting and ICD implantation. 5. Peripheral vascular disease. 6. Shock liver. 7. Renal failure. RECOMMENDATIONS: From the cardiac standpoint, I will stop the IV Cardizem and increase the dose of her beta adilia because of her cardiomyopathy. We will follow her blood pressure and depending on that we will adjust her medical regimen. MMODL / IJN: [id number] /
--- NOTE | 2018-04-09 12:50 | P.PN ---
Subjective Progress Note Date: 04/09/18 This is a 73-year-old female one of Dr. Latha Amezcua with a previous medical history significant for coronary artery disease status post coronary artery bypass graft with ischemic cardio myopathy and percutaneous coronary intervention and a total of 4 stents placement last one was put in the LAD back in November 2014, AICD placement, cardiomyopathy EF 43%, CABG with ischemic heart disease, patent HA, saphenous vein graft to RCA, 100% occluded circumflex with collaterals, recent echocardiogram revealed echo 20-25% with severe global hypokinesia, moderate MR, moderate pulmonary hypertension October 2017 echocardiogram.history of left subclavian stenosis status post stenting, carotid artery disease status post bilateral carotid endarterectomies, severe peripheral arterial occlusive disease, vasculitis , severe PAD with recent endovascular placement of aortic stent for occlusive disease of the aorta, left iliac stent, fem-fem bypass with greater saphenous vein at [facility]. Goldie at [facility], her arterial ulcers in the legs have since then resolved after vascular intervention. She has a tilt table positive test with drop on systolic blood pressure, required florinef Patient complained of early satiety, bloating, weight loss, was seen in the office and was prescribed Reglan, no antibiotic was given, patient now comes in with increasing fatigue, started getting around the house, altered mentation, no melena hematochezia, no diarrhea, has chills, she comes in septic, she got into respiratory failure, 4 hours after initial ER evaluation, requiring intubation. In the emergency room. Her liver function tests in December were normal, however on presentation, ammonia was 9 troponin 0.2 lactic acid 5.2 BUN 43 creatinine 0.9 bilirubin 2.5 AST 3607 ALT 2075, the basic count 10.2 INR 2.4 patient is not on any anticoagulation at home urinalysis shows significant pyuria of 81 with many WBC clumping noted cloudy urine specific gravity of 1.043 , urine drug screen negative.. CAT scan of the abdomen shows moderate L3-L4 bony spinal stenosis, sigmoid diverticulosis without diverticulitis, mild ascites, decreased density lower lobe right kidney related to renal ischemia and no evidence of renal mass patchy atelectasis lung bases prior cholecystectomy no mesenteric edema Patient currently is in ICU, sedated, mechanical ventilation tidal volume 400 assist control 20 FiO2 45% with PEEP of 5 patient is not responsive to any stimuli, follows in the ICU by multiple specialists including bin worker Dr. Madrid, cardiology, GI, services 04/09: Patient continues to be in ICU, sedated, mechanical ventilation tidal volume 400 assist control 20, FiO2 45% with a PEEP of 5. Patient is not responsive to any stimuli. Liver enzymes are improving. Patient continues to be intubated and sedated. There was noted hemiparesis of the left arm which is new. Hemoglobin is 10.1, platelets 129 INR 2.3, ABG pH 7.6, potassium 2.9, chloride 97 BUN 46 creatinine 1.13, AST 2107, ALT 1471, alkaline phosphatase 178. Urinary output 50-70 mL per hour. Objective - Vital Signs Vital signs: Vital Signs Temp 97.4 F L 04/09/18 08:00 Pulse 80 04/09/18 11:42 Resp 18 04/09/18 11:00 BP 115/62 04/09/18 11:00 Pulse Ox 100 04/09/18 11:00 Intake & Output 04/08/18 04/09/18 04/09/18 18:59 06:59 18:59 Intake Total 054.131 6158.319 350.874 Output Total 1010 1015 775 Balance -190.000 383.319 -424.126 Weight 58.967 kg 59.9 kg Intake: IV 590 665 45 0.9 KVO 40 Dextrose 5% in Water 1, 550 550 000 ml @ 50 mls/hr IV . Q23H NOE with Sodium Bicarb (1 Meq/ml) 150 ml Rx#:[id number] Diltiazem 50 mg In Sodium 40 115 5 Chloride 0.9% 40 ml @ 5 MG/HR 5 mls/hr IV .Q10H NOE Rx#:[id number] Intake, IV Titration 170.000 423.319 10.874 Amount Diltiazem 50 mg In Sodium 137.834 Chloride 0.9% 40 ml @ 5 MG/HR 5 mls/hr IV .Q10H NOE Rx#:[id number] Insulin Regular 100 unit 11. 10.874 In Sodium Chloride 0.9% 100 ml @ Per Protocol IV .Q0M NOE Rx#:[id number] Phytonadione 10 mg In 50 10 Sodium Chloride 0.9% 50 ml @ 100 mls/hr IVPB Q24H NOE Rx#:[id number] Propofol 1,000 mg In 100.000 264.274 Empty Bag 1 bag @ Titrate IV .Q0M [facility] Rx#: [id number] Sodium Chloride 0.9% 1, 20 000 ml @ 20 mls/hr IV . Q24H [facility] Rx#:[id number] Tube Feeding 30 220 115 Other 30 90 180 Output: Urine 1010 1015 775 Other: Voiding Method Indwelling Catheter Indwelling Catheter Indwelling Catheter ABP, PAP, CO, CI - Last Documented Arterial Blood Pressure 143/58 - Constitutional General appearance: Present: average body habitus, no acute distress - EENT Eyes: Present: anicteric sclerae, PERRLA, normal appearance - Neck Neck: Present: normal ROM - Respiratory Respiratory: bilateral: CTA, negative: diminished, dullness, rales, rhonchi, wheezing - Cardiovascular Rhythm: regular Heart sounds: normal: S1, S2 Abnormal Heart Sounds: Present: systolic murmur - Gastrointestinal General gastrointestinal: Present: decreased bowel sounds, soft - Integumentary Integumentary: Present: decreased turgor, normal - Musculoskeletal Musculoskeletal Comment(s): Unable to obtain patient sedated on a vent - Labs CBC & Chem 7: 04/09/18 04:13 04/09/18 04:13 Labs: Abnormal Lab Results - Last 24 Hours (Table) 04/08/18 04/08/18 04/08/18 Range/Units 13:27 14:44 15:53 Hgb (11.4-16.0) gm/dL Hct (34.0-46.0) % MCV (80.0-100.0) fL MCH (25.0-35.0) pg Plt Count (150-450) k/uL PT 27.5 H (9.0-12.0) sec INR 3.1 H (<1.2) ABG pH (7.35-7.45) ABG pCO2 (35-45) mmHg ABG pO2 (83-108) mmHg ABG HCO3 (21-25) mmol/L ABG Total CO2 (19-24) mmol/L ABG O2 Saturation (94-97) % Sodium (137-145) mmol/L Potassium (3.5-5.1) mmol/L Chloride (98-107) mmol/L BUN (7-17) mg/dL Creatinine (0.52-1.04) mg/dL Glucose (74-99) mg/dL POC Glucose (mg/dL) 252 H 275 H (75-99) mg/dL Hemoglobin A1c (4.0-6.0) % Calcium (8.4-10.2) mg/dL Phosphorus (2.5-4.5) mg/dL Magnesium (1.6-2.3) mg/dL Total Bilirubin (0.2-1.3) mg/dL AST (14-36) U/L ALT (9-52) U/L Alkaline Phosphatase (38-126) U/L Total Protein (6.3-8.2) g/dL Albumin (3.5-5.0) g/dL 04/08/18 04/08/18 04/09/18 Range/Units 16:15 20:03 00:10 Hgb (11.4-16.0) gm/dL Hct (34.0-46.0) % MCV (80.0-100.0) fL MCH (25.0-35.0) pg Plt Count (150-450) k/uL PT (9.0-12.0) sec INR (<1.2) ABG pH (7.35-7.45) ABG pCO2 (35-45) mmHg ABG pO2 (83-108) mmHg ABG HCO3 (21-25) mmol/L ABG Total CO2 (19-24) mmol/L ABG O2 Saturation (94-97) % Sodium (137-145) mmol/L Potassium (3.5-5.1) mmol/L Chloride (98-107) mmol/L BUN (7-17) mg/dL Creatinine (0.52-1.04) mg/dL Glucose (74-99) mg/dL POC Glucose (mg/dL) 255 H 236 H (75-99) mg/dL Hemoglobin A1c 7.1 H (4.0-6.0) % Calcium (8.4-10.2) mg/dL Phosphorus (2.5-4.5) mg/dL Magnesium (1.6-2.3) mg/dL Total Bilirubin (0.2-1.3) mg/dL AST (14-36) U/L ALT (9-52) U/L Alkaline Phosphatase (38-126) U/L Total Protein (6.3-8.2) g/dL Albumin (3.5-5.0) g/dL 04/09/18 04/09/18 04/09/18 Range/Units 04:12 04:13 04:13 Hgb 10.1 L (11.4-16.0) gm/dL Hct 31.7 L (34.0-46.0) % MCV 77.9 L (80.0-100.0) fL MCH 24.7 L (25.0-35.0) pg Plt Count 129 L (150-450) k/uL PT 21.0 H (9.0-12.0) sec INR 2.3 H (<1.2) ABG pH (7.35-7.45) ABG pCO2 (35-45) mmHg ABG pO2 (83-108) mmHg ABG HCO3 (21-25) mmol/L ABG Total CO2 (19-24) mmol/L ABG O2 Saturation (94-97) % Sodium (137-145) mmol/L Potassium (3.5-5.1) mmol/L Chloride (98-107) mmol/L BUN (7-17) mg/dL Creatinine (0.52-1.04) mg/dL Glucose (74-99) mg/dL POC Glucose (mg/dL) 272 H (75-99) mg/dL Hemoglobin A1c (4.0-6.0) % Calcium (8.4-10.2) mg/dL Phosphorus (2.5-4.5) mg/dL Magnesium (1.6-2.3) mg/dL Total Bilirubin (0.2-1.3) mg/dL AST (14-36) U/L ALT (9-52) U/L Alkaline Phosphatase (38-126) U/L Total Protein (6.3-8.2) g/dL Albumin (3.5-5.0) g/dL 04/09/18 04/09/18 04/09/18 Range/Units 04:13 04:13 04:49 Hgb (11.4-16.0) gm/dL Hct (34.0-46.0) % MCV (80.0-100.0) fL MCH (25.0-35.0) pg Plt Count (150-450) k/uL PT (9.0-12.0) sec INR (<1.2) ABG pH (7.35-7.45) ABG pCO2 (35-45) mmHg ABG pO2 (83-108) mmHg ABG HCO3 (21-25) mmol/L ABG Total CO2 (19-24) mmol/L ABG O2 Saturation (94-97) % Sodium 133 L (137-145) mmol/L Potassium 2.9 L (3.5-5.1) mmol/L Chloride 97 L (98-107) mmol/L BUN 46 H (7-17) mg/dL Creatinine 1.13 H (0.52-1.04) mg/dL Glucose 251 H (74-99) mg/dL POC Glucose (mg/dL) 262 H (75-99) mg/dL Hemoglobin A1c (4.0-6.0) % Calcium 8.2 L (8.4-10.2) mg/dL Phosphorus 2.3 L (2.5-4.5) mg/dL Magnesium 1.4 L (1.6-2.3) mg/dL Total Bilirubin 1.9 H (0.2-1.3) mg/dL AST 2107 H (14-36) U/L ALT 1471 H (9-52) U/L Alkaline Phosphatase 178 H (38-126) U/L Total Protein 4.9 L (6.3-8.2) g/dL Albumin 2.6 L (3.5-5.0) g/dL 04/09/18 04/09/18 04/09/18 Range/Units 05:36 06:00 06:42 Hgb (11.4-16.0) gm/dL Hct (34.0-46.0) % MCV (80.0-100.0) fL MCH (25.0-35.0) pg Plt Count (150-450) k/uL PT (9.0-12.0) sec INR (<1.2) ABG pH 7.60 H* (7.35-7.45) ABG pCO2 30 L (35-45) mmHg ABG pO2 113 H (83-108) mmHg ABG HCO3 29 H (21-25) mmol/L ABG Total CO2 30 H (19-24) mmol/L ABG O2 Saturation 97.4 H (94-97) % Sodium (137-145) mmol/L Potassium (3.5-5.1) mmol/L Chloride (98-107) mmol/L BUN (7-17) mg/dL Creatinine (0.52-1.04) mg/dL Glucose (74-99) mg/dL POC Glucose (mg/dL) 264 H 215 H (75-99) mg/dL Hemoglobin A1c (4.0-6.0) % Calcium (8.4-10.2) mg/dL Phosphorus (2.5-4.5) mg/dL Magnesium (1.6-2.3) mg/dL Total Bilirubin (0.2-1.3) mg/dL AST (14-36) U/L ALT (9-52) U/L Alkaline Phosphatase (38-126) U/L Total Protein (6.3-8.2) g/dL Albumin (3.5-5.0) g/dL 04/09/18 04/09/18 04/09/18 Range/Units 08:25 09:09 10:59 Hgb (11.4-16.0) gm/dL Hct (34.0-46.0) % MCV (80.0-100.0) fL MCH (25.0-35.0) pg Plt Count (150-450) k/uL PT (9.0-12.0) sec INR (<1.2) ABG pH (7.35-7.45) ABG pCO2 (35-45) mmHg ABG pO2 (83-108) mmHg ABG HCO3 (21-25) mmol/L ABG Total CO2 (19-24) mmol/L ABG O2 Saturation (94-97) % Sodium (137-145) mmol/L Potassium (3.5-5.1) mmol/L Chloride (98-107) mmol/L BUN (7-17) mg/dL Creatinine (0.52-1.04) mg/dL Glucose (74-99) mg/dL POC Glucose (mg/dL) 211 H 171 H 175 H (75-99) mg/dL Hemoglobin A1c (4.0-6.0) % Calcium (8.4-10.2) mg/dL Phosphorus (2.5-4.5) mg/dL Magnesium (1.6-2.3) mg/dL Total Bilirubin (0.2-1.3) mg/dL AST (14-36) U/L ALT (9-52) U/L Alkaline Phosphatase (38-126) U/L Total Protein (6.3-8.2) g/dL Albumin (3.5-5.0) g/dL 04/09/18 Range/Units 11:51 Hgb (11.4-16.0) gm/dL Hct (34.0-46.0) % MCV (80.0-100.0) fL MCH (25.0-35.0) pg Plt Count (150-450) k/uL PT (9.0-12.0) sec INR (<1.2) ABG pH (7.35-7.45) ABG pCO2 (35-45) mmHg ABG pO2 (83-108) mmHg ABG HCO3 (21-25) mmol/L ABG Total CO2 (19-24) mmol/L ABG O2 Saturation (94-97) % Sodium (137-145) mmol/L Potassium (3.5-5.1) mmol/L Chloride (98-107) mmol/L BUN (7-17) mg/dL Creatinine (0.52-1.04) mg/dL Glucose (74-99) mg/dL POC Glucose (mg/dL) 169 H (75-99) mg/dL Hemoglobin A1c (4.0-6.0) % Calcium (8.4-10.2) mg/dL Phosphorus (2.5-4.5) mg/dL Magnesium (1.6-2.3) mg/dL Total Bilirubin (0.2-1.3) mg/dL AST (14-36) U/L ALT (9-52) U/L Alkaline Phosphatase (38-126) U/L Total Protein (6.3-8.2) g/dL Albumin (3.5-5.0) g/dL Microbiology - Last 24 Hours (Table) 04/08/18 08:24 Blood Culture - Preliminary Blood No Growth after 24 hours 04/07/18 20:25 Blood Culture - Preliminary Blood No Growth after 24 hours 04/07/18 20:25 Urine Culture - Preliminary Urine,Voided Gram Neg Bacilli 04/08/18 06:01 Gram Stain - Preliminary Sputum Sputum Culture - Preliminary 04/08/18 Unknown Urine Culture - Preliminary Urine,Catheterized 04/08/18 05:30 Urine Culture - Preliminary Urine,Catheterized Assessment and Plan Plan: 1. Sepsis with altered organ failure including acute hypoxemic respiratory failure, shock liver, hypoperfusion related to sepsis, lactic acidosis urinary tract infection seems to be the primary source, patient was in consultation by multiple specialists including critical care medicine, neurology, might need infectious disease depending on clinical outcomes, Rocephin 1 g daily IV, pancultures obtained. 2. Congestive heart failure, Lasix IV 80 mg every 12 hours Acute on chronic CK D stage II, monitor for renal hypoperfusion related to hypovolemia, maintain fluid resuscitation, 3. Elevated troponin most likely secondary to septic shock, cardiology is consulted, echocardiogram requested 4. CAD post CABGand stent placements with ischemic cardiopathy post AICD. continue risk modifications,beta blockers would be continued with parameters on holding metoprolol, lisinopril and Imdur is on hold. 5. Acute liver failure possibly secondary to septic shock against passive CHF, patient also has underlying coagulopathy, patient has had also weight loss for the past few months, other labs include JAMMIE, and CA 19 CEA AFP, GI is on consult. Prior history of cholecystectomy, hepatitis panel requested 6. Severe PAD post evaluation by vascular surgery status post recent endovascular placement of aortic stent for occlusive disease of the aorta, left iliac stent, and fem-fem bypass with great saphenous vein at [facility]. Continue Pletal 100 mg orally twice every day. 7. Carotid artery disease status post carotid endarterectomies. Continue aspirin 81 mg daily and Plavix 75 mg daily as a liver enzymes show improvement. We will restart once stable following: Lipitor for secondary prevention. 8. Ucontrolled diabetes mellitus type 2 with PVD complications, neuropathy, currently on insulin correctional scale while nothing by mouth on a vent. home meds was on Lantus 10 units daily NovoLog scale with 4 units pre-meal 3 times a day, on trulicity. along with the Humalog per sliding scale. Continue BGM before each meal and bedtime. 7. Hypertension and hypertensive cardio vascular disease. lisinopril on hold secondary to hypotension, Imdur and hold, metoprolol will be held based on systolic blood pressure less than 100 IV Cardizem per cardiology 8. Hyperlipidemia. Hold patient on Lipitor 80 mg orally once every day. Dietary acute liver failure 9. History of left subclavian stenosis. Post stenting. Stable at this time. 10. History of GERD. IV Protonix daily is on Prevacid daily 11. Vitamin D deficiency. Hold patient on vitamin D 1000 units once every day. 12. Depression. Continue Cymbalta 60 mg orally once every day. 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 Gabapentin 100 mg 3 times a day 14. 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 15 History of left subclavianstenosis status post stenting 16 spinal stenosis L3-L4, L4-L5, severe R L3-L4 area with moderate severe spinal stenosis posterior disc bulging with facet arthropathy, based on CAT scan 09/20/2017physical therapy, might need consult with Dr. Crocker DVT prophylaxis. GI prophylaxis. Continue PPI. 15. Admit to inpatient. Estimated length of stay 2 midnights. 16. Patient is full code. 17. Autonomic dysfunction Recurrent falls, physical therapy and occupational therapy to see the patient when stabilized 18. Hemiparesis left arm, CT of the brain without contrast. Impression and plan of care have been directed as dictated by the signing physician. Oly Reed nurse practitioner acting as scribe for signing physician.
[2018-04-09 13:14] LABS: Glucose,Whole Blood 198 mg/dL (75-99)
[2018-04-09 14:15] LABS: Glucose,Whole Blood 177 mg/dL (75-99)
--- NOTE | 2018-04-09 14:23 | CT ---
EXAMINATION TYPE: CT brain wo con DATE OF EXAM: 04/09/2018 HISTORY: Hemiparesis CT DLP: 1094.4 mGycm. Automated Exposure Control for Dose Reduction was Utilized. TECHNIQUE: CT scan of the head is performed without contrast. COMPARISON: CT brain from yesterday and older studies. FINDINGS: There is no acute intracranial hemorrhage or midline shift identified. There is new marke d areas of borrero-white matter blurring and involving bilateral frontal lobes with additional area of i nvolvement extending to the right parietal-occipital region. Sulcal effacement is seen. There is back ground diffuse cerebral atrophy and chronic small vessel ischemic change noted. The globes are intac t and the visualized sinuses are clear. There is partial visualization of new endotracheal and orog astric tubes. IMPRESSION: There is evolving new acute large right-sided infarct involving frontal parietal region w ith occipital extension. There is new evolving smaller but moderate size acute infarct left frontal lobe. A B[place] level critical message alert has been initiated for Audra Mcginnis via the [employer] on 04/09/2018 2:21 PM. This message alert has been sent to Audra Mcginnis via t he preferences provided by the clinician for the receipt of Radiology Critical Findings. Message ID [id number].
[2018-04-09 15:04] LABS: Glucose,Whole Blood 159 mg/dL (75-99)
[2018-04-09 15:57] LABS: Glucose,Whole Blood 132 mg/dL (75-99)
[2018-04-09] MEDS: PHYTONADIONE 10 MG in SODIUM CHLORIDE 0.9% 50 ML IVPB SCH (16:59)
[2018-04-09 17:12] LABS: Glucose,Whole Blood 146 mg/dL (75-99)
[2018-04-09 17:57] LABS: Glucose,Whole Blood 121 mg/dL (75-99)
[2018-04-09] MEDS ORDERED: POTASSIUM BICARBONATE/CIT AC 20 MEQ TABLET.EFF NG-TUBE SCH (19:00)
[2018-04-09 19:02] LABS: Glucose,Whole Blood 159 mg/dL (75-99)
[2018-04-09] MEDS ORDERED: DEXAMETHASONE SOD PHOSPHATE 10 MG/ML 1 ML VIAL IV STA (19:20)
[2018-04-09 20:04] LABS: Glucose,Whole Blood 170 mg/dL (75-99)
[2018-04-09 21:00] LABS: Glucose,Whole Blood 185 mg/dL (75-99)
[2018-04-09 21:59] LABS: Glucose,Whole Blood 192 mg/dL (75-99)
[2018-04-09 23:05] LABS: Glucose,Whole Blood 268 mg/dL (75-99)
[2018-04-10 00:10] LABS: Glucose,Whole Blood 260 mg/dL (75-99)
[2018-04-10 01:06] LABS: Glucose,Whole Blood 230 mg/dL (75-99)
[2018-04-10 02:10] LABS: Glucose,Whole Blood 219 mg/dL (75-99)
[2018-04-10 03:07] LABS: Glucose,Whole Blood 226 mg/dL (75-99)
[2018-04-10] MEDS: IPRATROPIUM-ALBUTEROL 3 ML NEB INHALATION SCH ×6 (03:14→23:25)
[2018-04-10] MEDS: INSULIN REGULAR 100 UNIT in SODIUM CHLORIDE 0.9% 100 ML IV SCH (03:33)
[2018-04-10] MEDS: DEXTROSE 5% IN WATER 1,000 ML with SODIUM BICARB (1 MEQ/ML) 150 ML IV SCH (03:35)
[2018-04-10] MEDS: DEXAMETHASONE SOD PHOSPHATE 4 MG/ML 1 ML VIAL IV SCH ×3 (03:37→20:12)
[2018-04-10 04:11] LABS: Glucose,Whole Blood 269 mg/dL (75-99)
[2018-04-10 04:25] LABS: HCT 37.8 % (34.0-46.0); HGB 11.8 gm/dL (11.4-16.0); Hypochromasia Moderate; MCH 24.8 pg (25.0-35.0); MCHC 31.3 g/dL (31.0-37.0); Mean Platelet Volume 9.7; Platelet Count 133 k/uL (150-450); Poikilocytosis Slight; RBC 4.78 m/uL (3.80-5.40); RDW 15.2 % (11.5-15.5); WBC 10.4 k/uL (3.8-10.6)
[2018-04-10 04:32] LABS: Prothrombin Time 18.3 sec (9.0-12.0)
[2018-04-10 04:42] LABS: Albumin 2.8 g/dL (3.5-5.0); Calcium 8.6 mg/dL (8.4-10.2); Magnesium 2.1 mg/dL (1.6-2.3); Phosphorus 2.9 mg/dL (2.5-4.5); Potassium 5.6 mmol/L (3.5-5.1); Total Bilirubin 1.6 mg/dL (0.2-1.3); Total Protein 5.3 g/dL (6.3-8.2)
[2018-04-10 05:07] LABS: Glucose,Whole Blood 231 mg/dL (75-99)
[2018-04-10 06:09] LABS: Glucose,Whole Blood 234 mg/dL (75-99)
[2018-04-10] MEDS: FUROSEMIDE 10 MG/ML 10 ML VIAL IV SCH ×2 (06:59→20:12)
[2018-04-10 07:04] LABS: Glucose,Whole Blood 207 mg/dL (75-99)
[2018-04-10 07:34] LABS: ABG Base Excess 7.8 mmol/L; ABG HCO3 29 mmol/L (21-25); ABG Oxygen Saturation 96.6 % (94-97); ABG PCO2 30 mmHg (35-45); ABG PO2 99 mmHg (83-108); ABG TCO2 30 mmol/L (19-24)
--- NOTE | 2018-04-10 07:38 | XR ---
EXAMINATION TYPE: XR chest 1V portable DATE OF EXAM: 04/10/2018 COMPARISON: 04/09/2018 INDICATION: Tube placement, difficulty breathing TECHNIQUE: Single frontal view of the chest is obtained. FINDINGS: The heart size is enlarged. The pulmonary vasculature is normal. Small left pleural effusion is present. A very minimal right pleural effusion is not excluded. Endotracheal tube is present with the tip above the shannan. Nasogastric tube transverses the thorax t he tip in left upper quadrant of the abdomen. Electronic device overlies left chest. EKG leads overlie the chest. IMPRESSION: 1. Small left pleural effusion. 2. Lines and catheters discussed above.
--- NOTE | 2018-04-10 07:52 | CONS ---
CONSULTATION DATE OF CONSULTATION: 04/09/2018 CHIEF COMPLAINT: Anoxic brain injury. HISTORY OF PRESENT ILLNESS: Mrs Colon is a 73-year-old, female, who is being evaluated by the neurology service per the request of Dr. Madrid for possible anoxic brain injury. The patient was brought into [facility] Emergency Room with the main complaints of abdominal pain and weakness. While in the emergency room, she developed acute hypoxic respiratory failure. According to the nursing staff, CPR was done for approximately 45 minutes. The patient was intubated. The patient has multiple comorbidities including ischemic cardiomyopathy with coronary artery disease, and peripheral vessel occlusive disease with multiple stent placements. A CT scan of the brain was done, which showed evidence of an old ischemic stroke involving the left occipital lobe along with generalized atrophy. 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 Her CBC showed anemia with a hemoglobin of 10.1 and hematocrit of 31%. She also had thrombocytopenia at 129,000. The patient developed acute hepatic and renal failure as well as her BUN and creatinine are 46 and 1.13 and her AST was 2107 and ALT of 1471. Her hepatitis panel was negative. Her urinalysis showed 38 WBCs with large leukocyte esterase and negative nitrites. Initially, the patient was sedated after being intubated, but propofol was held for the past 6 hours prior to my evaluation. The patient remains unresponsive to any verbal or painful stimuli. PAST MEDICAL HISTORY: Coronary artery disease, peripheral vascular disease, angina, heart failure, stroke, diabetes, gastroesophageal reflux disease, dyslipidemia, hypertension, myocardial infarction, cardiomyopathy, arthritis, history of polio, cataracts, coronary artery stent placement, peripheral artery stent placement, pacemaker implant, appendectomy, C- section, coronary artery bypass grafting, cholecystectomy, hysterectomy. SOCIAL HISTORY: There is no history of any tobacco, alcohol or drug use. FAMILY HISTORY: Positive for cancer, hypertension, and heart disease. HOME MEDICATIONS: Reviewed in the chart. ALLERGIES: ADHESIVE TAPE, CODEINE, PERSANTINE, LATEX, METFORMIN. REVIEW OF SYSTEMS: Unable to obtain as patient is intubated and unresponsive. PHYSICAL EXAM: Vital signs show a temperature of 97.4, pulse 71, respirations 14, blood pressure 126/67. GENERAL APPEARANCE: The patient is a well-developed, elderly female who is intubated and unresponsive at this time. HEENT: Normocephalic atraumatic, no obvious facial asymmetry is seen. Endotracheal tube is intact. NECK: Supple. With no masses felt. CARDIOVASCULAR: Regular rate and rhythm. ABDOMEN: Slightly distended. EXTREMITIES: Showed no edema or clubbing. Gangrenous changes are seen in the left 3rd toe. NEUROLOGICAL EXAM: The patient is unresponsive to any verbal or painful stimuli involving all 4 extremities and sternal rub. Plantar reflex showed silent toes bilaterally. Andrew response was negative in bilateral upper extremities. Brainstem reflexes showed absent corneal reflex and oculocephalic reflex. Pupils are pin point and sluggishly reactive to light. Gag reflex is present. Extremities are flaccid bilaterally. No tremors or seizure-like activity is seen. No obvious facial asymmetry is noticed. IMPRESSION: 1. Anoxic brain injury. 2. Acute hypoxic encephalopathy. 3. Respiratory failure. 4. 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 5. History of ischemic stroke. 6. Cardiomyopathy. 7. Peripheral vascular disease. RECOMMENDATION: The patient has been off of sedation for several hours now and she remains unresponsive to any verbal or painful stimuli. There is significant concern for severe anoxic brain injury. Given the patient's multiple comorbidities and advanced age, she is more susceptible to anoxic brain injury. At this time, only a gag reflex is present from brainstem reflexes, which is a poor prognosis. She also has multiple organ failure. I will order a serum ammonia level, EEG, and a repeat CT scan of the brain. Continue neuro checks. I will continue to follow with you. Further recommendations to follow. Thank you for allowing me to participate in the care of your patient. If you have any questions, please feel free to contact me. MMODL / IJN: [id number] /
[2018-04-10 07:59] LABS: Glucose,Whole Blood 201 mg/dL (75-99)
[2018-04-10 08:59] LABS: Glucose,Whole Blood 196 mg/dL (75-99)
[2018-04-10 10:09] LABS: Glucose,Whole Blood 208 mg/dL (75-99)
[2018-04-10] MEDS: ENOXAPARIN 30 MG/0.3 ML SYRINGE SQ SCH (10:15)
[2018-04-10] MEDS: DULoxetine HCL 60 MG CAPSULE.DR PO SCH (10:15)
[2018-04-10] MEDS: CHLORHEXIDINE GLUCONATE 15 ML CUP MUCOUS MEM SCH ×2 (10:15→20:12)
[2018-04-10] MEDS: ASPIRIN 81 MG PO SCH (10:15)
[2018-04-10] MEDS: GABAPENTIN 100 MG CAP PO SCH ×3 (10:15→18:23)
[2018-04-10] MEDS: CLOPIDOGREL 75 MG TAB PO SCH (10:15)
[2018-04-10] MEDS: PANTOPRAZOLE 40 MG/10 ML VIAL IVP SCH (10:15)
[2018-04-10] MEDS: METOPROLOL TARTRATE 25 MG TAB PO SCH ×4 (10:16→21:28)
[2018-04-10 10:33] VITALS: BMI 24.6
--- NOTE | 2018-04-10 12:07 | PN ---
PROGRESS NOTE Mrs. Colon is a 73-year-old female with known history of coronary artery disease, history of severe ischemic cardiomyopathy, peripheral vascular disease who presented with respiratory failure and urinary tract infection. She remains intubated and sedated. Hemodynamically, she is stable. She is not responding to verbal or painful stimuli. She underwent a brain CT yesterday that revealed evolving large right-sided infarct involving the frontal parietal region. She continues to be at this time on Plavix, dexamethasone, Lasix 80 mg IV q.12 hours, metoprolol tartrate 25 mg 4 times a day. PHYSICAL EXAMINATION: Blood pressure 120/60 with the heart rate in the 90s. LUNGS: Clear anteriorly. HEART: Regular rate and rhythm. S1, S2. No S3. No rub appreciated. ABDOMEN: Soft. Positive bowel sounds. EXTREMITIES: No significant edema. LAB DATA: Lab data revealed BUN and creatinine 56 and 1.0. Her AST is 1451, which is improving compared with her presentation. Her hemoglobin is 11.8. Her INR is 2.0. IMPRESSION: 1. Large cerebrovascular accident. 2. Acute respiratory failure. 3. Severe ischemic cardiomyopathy. 4. Peripheral vascular disease. 5. Shock liver. 6. History of ICD implantation and coronary artery bypass grafting. 7. Renal failure, improving. RECOMMENDATION: We will continue supportive care. Unfortunately prognosis is quite guarded in view of the results of the CAT scan. We will await the input of the neurology service. VIC / JUAN MIGUEL: [id number] /
[2018-04-10 12:13] LABS: Glucose,Whole Blood 195 mg/dL (75-99)
--- NOTE | 2018-04-10 12:27 | P.PN ---
Subjective Progress Note Date: 04/10/18 Principal diagnosis: Acute hypoxic respiratory failure requiring intubation and mechanical ventilation. This is a 73-year-old female with history of multiple medical problems including coronary artery disease, ischemic cardiomyopathy, peripheral vessel occlusive disease with bilateral carotid endarterectomy, CABG, subclavian stent placement and multiple peripheral stents placed in the past, patient obviously has severe vasculopathy. Severe peripheral vessel occlusive disease involving lower extremities. Previous AICD placement 4 severe ischemic cardiomyopathy. Patient was last admitted to [facility] about 3 months ago, at that time she was admitted with recurrent syncope and multiple falls secondary to recurrent syncope. Patient was seen by many consultants during the last admission, and she was eventually discharged home on 12/29/2017. During that admission the patient had tilt table test that showed orthostatic drop in blood pressure without any symptoms. Patient was placed on Florinef by cardiology. Last night the patient presented to the ER with altered mental status, and according to the family she was not acting appropriately, she was confused, and there was questionable right-sided weakness noted by EMS upon arrival. Workup in the ER included CT of the brain, CT of the abdomen and pelvis, chest x-ray, CT angiogram of the brain, EKG, workup was basically nondiagnostic except for the chest x-ray showing some evidence of pulmonary edema. Her liver enzymes were noted to be significantly elevated. With significantly elevated transaminases, and total bilirubin was 3.3. Her urinalysis showed evidence of pyuria and bacteriuria, and wild in the ER, just before transferring the patient to the ICU, patient deteriorated, and her respiration became agonal. Patient was intubated by the ER physician, and transferred to the ICU. I saw the patient in the ICU, presently sedated, on propofol at 30 mcg/kg/m, she is on mechanical ventilation with tidal volume of 400, assist control rate of 20 FiO2 45% and PEEP of 5. Her peak airway pressure is 28, and plateau pressure is 14. Patient is not responsive to any stimuli. Her pupils seem to be pinpoint. ABG post intubation showed it be O2 of 397 pCO2 of 31, pH of 7.5. Apparently the patient was developing significant metabolic acidosis, could be related to global hypoperfusion could also be related to sepsis, assuming the most likely source would be the urine. Her initial lactic acid was 7.6, follow- up lactic acid post fluid boluses of 2 L, came back down to 5.9. Patient was reevaluated today on 04/09/2018, remains on mechanical ventilation, and her ventilator settings are assist control rate of 16 but I cut it down to 14, tidal volume of 400, FiO2 45%, and PEEP is 5. Patient remains on Cardizem drip, and I have discontinued her bicarb drip. Remains on propofol at 50 mcg/kg /m. Patient remains unresponsive to any deep painful stimuli, even after stopping propofol, patient was noted to grimace only to deep painful stimuli. Labs were reviewed her ABG showed a pO2 of 113 pCO2 of 30 and pH of 7.60. Hence I discontinued sodium bicarb drip, and I adjusted the ventilator settings to a lower assist control rate of 14. Advised the nurses to hold propofol, and I would like to assess her mental status off propofol. Her pupils are pinpoint , hence I recommended a neurological evaluation on this patient. She may have sustained some encephalopathy/anoxic brain injury. Reevaluated today on 04/10/2018, patient remains in the ICU on mechanical ventilation, her ventilator settings are assist control rate of 12, tidal volume of 400, FiO2 of 45%, and PEEP of 5. Patient remains unresponsive to any painful stimuli. Pupils remained pinpoint. All her labs were reviewed including ABG, showed a pO2 of 99 pCO2 of 30 0 pH of 7.60 reflecting a picture of combined metabolic and respiratory alkalosis. Electrolytes are relatively normal potassium is 5.2. Profile is about the same with a BUN of [address] of the brain done yesterday showed evolving new acute right sided infarct involving frontal parietal region with occipital extension and new evolving smaller but moderate-sized acute infarct left frontal lobe. Neurology is aware of the findings, not recommending any treatment, did not recommend any anticoagulation therapy at this point yet. Chest x-ray this morning showed adequate placement of lines and catheters, small left pleural effusion is noted. Otherwise the chest x-ray is unremarkable. Objective - Vital Signs Vital signs: Vital Signs Temp 98.0 F 04/10/18 12:00 Pulse 93 04/10/18 12:00 Resp 23 04/10/18 12:00 BP 106/66 04/10/18 12:00 Pulse Ox 99 04/10/18 12:00 Intake & Output 04/09/18 04/10/18 04/10/18 18:59 06:59 18:59 Intake Total 1272.498 638.962 408.382 Output Total 1445 475 160 Balance -172.502 163.962 248.382 Weight 61.1 kg 61.1 kg Intake: IV 575 120 110 0.9 KVO 220 120 110 Diltiazem 50 mg In Sodium 5 Chloride 0.9% 40 ml @ 5 MG/HR 5 mls/hr IV .Q10H NOE Rx#:[id number] Magnesium Sulfate-D5w Pmx 300 1 gm In Dextrose/Water 1 100ml.bag @ 100 mls/hr IVPB Q1H NOE Rx#: [id number] Phytonadione 10 mg In 50 Sodium Chloride 0.9% 50 ml @ 100 mls/hr IVPB Q24H NOE Rx#:[id number] Intake, IV Titration 37.498 38.962 18.382 Amount Insulin Regular 100 unit 37.498 38.962 18.382 In Sodium Chloride 0.9% 100 ml @ Per Protocol IV .Q0M NOE Rx#:[id number] Tube Feeding 360 420 280 Other 300 60 Output: Urine 1445 475 160 Other: Voiding Method Indwelling Catheter Indwelling Catheter Indwelling Catheter ABP, PAP, CO, CI - Last Documented Arterial Blood Pressure 80/62 - Exam Physical Exam: Revealed a 73-year-old female sedated, on mechanical ventilation , no responses noted to any deep painful stimuli. Head: Atraumatic, normocephalic. Dry mucous membranes noted. HEENT:[Neck is supple.] [No neck masses.] [No thyromegaly.] [No JVD.] Positive icterus. dry mucous membranes. Endotracheal tube and orogastric tube are intact. Chest: [Crackles and rhonchi noted bilaterally, symmetrical expansion, no chest wall tenderness. Cardiac Exam: [Normal S1 and S2, no S3 gallop, no murmur.] Abdomen: [Soft, nontender, no megaly, no rebound, no guarding, normal bowel sounds.] Extremities: [No clubbing, no edema, no cyanosis.] Diminished distal pulses bilaterally. Neurological Exam: Unresponsive to any deep painful stimuli, patient is not on any sedatives, has been off propofol since yesterday. Psychiatric: Cannot be assessed. Unresponsive. Skin: No rashes. - Labs CBC & Chem 7: 04/10/18 04:07 04/10/18 04:07 Labs: Abnormal Lab Results - Last 24 Hours (Table) 04/09/18 04/09/18 04/09/18 Range/Units 13:10 13:13 14:13 MCV (80.0-100.0) fL MCH (25.0-35.0) pg Plt Count (150-450) k/uL PT (9.0-12.0) sec INR (<1.2) ABG pH (7.35-7.45) ABG pCO2 (35-45) mmHg ABG HCO3 (21-25) mmol/L ABG Total CO2 (19-24) mmol/L Sodium (137-145) mmol/L Potassium 3.3 L (3.5-5.1) mmol/L Chloride (98-107) mmol/L Carbon Dioxide (22-30) mmol/L BUN (7-17) mg/dL Creatinine (0.52-1.04) mg/dL Glucose (74-99) mg/dL POC Glucose (mg/dL) 198 H 177 H (75-99) mg/dL Total Bilirubin (0.2-1.3) mg/dL AST (14-36) U/L ALT (9-52) U/L Alkaline Phosphatase (38-126) U/L Ammonia (<30) umol/L Total Protein (6.3-8.2) g/dL Albumin (3.5-5.0) g/dL 04/09/18 04/09/18 04/09/18 Range/Units 15:03 15:56 17:10 MCV (80.0-100.0) fL MCH (25.0-35.0) pg Plt Count (150-450) k/uL PT (9.0-12.0) sec INR (<1.2) ABG pH (7.35-7.45) ABG pCO2 (35-45) mmHg ABG HCO3 (21-25) mmol/L ABG Total CO2 (19-24) mmol/L Sodium (137-145) mmol/L Potassium (3.5-5.1) mmol/L Chloride (98-107) mmol/L Carbon Dioxide (22-30) mmol/L BUN (7-17) mg/dL Creatinine (0.52-1.04) mg/dL Glucose (74-99) mg/dL POC Glucose (mg/dL) 159 H 132 H (75-99) mg/dL Total Bilirubin (0.2-1.3) mg/dL AST (14-36) U/L ALT (9-52) U/L Alkaline Phosphatase (38-126) U/L Ammonia 30 H (<30) umol/L Total Protein (6.3-8.2) g/dL Albumin (3.5-5.0) g/dL 04/09/18 04/09/18 04/09/18 Range/Units 17:10 17:56 19:01 MCV (80.0-100.0) fL MCH (25.0-35.0) pg Plt Count (150-450) k/uL PT (9.0-12.0) sec INR (<1.2) ABG pH (7.35-7.45) ABG pCO2 (35-45) mmHg ABG HCO3 (21-25) mmol/L ABG Total CO2 (19-24) mmol/L Sodium (137-145) mmol/L Potassium (3.5-5.1) mmol/L Chloride (98-107) mmol/L Carbon Dioxide (22-30) mmol/L BUN (7-17) mg/dL Creatinine (0.52-1.04) mg/dL Glucose (74-99) mg/dL POC Glucose (mg/dL) 146 H 121 H 159 H (75-99) mg/dL Total Bilirubin (0.2-1.3) mg/dL AST (14-36) U/L ALT (9-52) U/L Alkaline Phosphatase (38-126) U/L Ammonia (<30) umol/L Total Protein (6.3-8.2) g/dL Albumin (3.5-5.0) g/dL 04/09/18 04/09/18 04/09/18 Range/Units 20:02 20:59 21:57 MCV (80.0-100.0) fL MCH (25.0-35.0) pg Plt Count (150-450) k/uL PT (9.0-12.0) sec INR (<1.2) ABG pH (7.35-7.45) ABG pCO2 (35-45) mmHg ABG HCO3 (21-25) mmol/L ABG Total CO2 (19-24) mmol/L Sodium (137-145) mmol/L Potassium (3.5-5.1) mmol/L Chloride (98-107) mmol/L Carbon Dioxide (22-30) mmol/L BUN (7-17) mg/dL Creatinine (0.52-1.04) mg/dL Glucose (74-99) mg/dL POC Glucose (mg/dL) 170 H 185 H 192 H (75-99) mg/dL Total Bilirubin (0.2-1.3) mg/dL AST (14-36) U/L ALT (9-52) U/L Alkaline Phosphatase (38-126) U/L Ammonia (<30) umol/L Total Protein (6.3-8.2) g/dL Albumin (3.5-5.0) g/dL 04/09/18 04/10/18 04/10/18 Range/Units 23:03 00:07 00:08 MCV (80.0-100.0) fL MCH (25.0-35.0) pg Plt Count (150-450) k/uL PT (9.0-12.0) sec INR (<1.2) ABG pH (7.35-7.45) ABG pCO2 (35-45) mmHg ABG HCO3 (21-25) mmol/L ABG Total CO2 (19-24) mmol/L Sodium (137-145) mmol/L Potassium 5.2 H (3.5-5.1) mmol/L Chloride (98-107) mmol/L Carbon Dioxide (22-30) mmol/L BUN (7-17) mg/dL Creatinine (0.52-1.04) mg/dL Glucose (74-99) mg/dL POC Glucose (mg/dL) 268 H 260 H (75-99) mg/dL Total Bilirubin (0.2-1.3) mg/dL AST (14-36) U/L ALT (9-52) U/L Alkaline Phosphatase (38-126) U/L Ammonia (<30) umol/L Total Protein (6.3-8.2) g/dL Albumin (3.5-5.0) g/dL 04/10/18 04/10/18 04/10/18 Range/Units 01:05 02:07 03:06 MCV (80.0-100.0) fL MCH (25.0-35.0) pg Plt Count (150-450) k/uL PT (9.0-12.0) sec INR (<1.2) ABG pH (7.35-7.45) ABG pCO2 (35-45) mmHg ABG HCO3 (21-25) mmol/L ABG Total CO2 (19-24) mmol/L Sodium (137-145) mmol/L Potassium (3.5-5.1) mmol/L Chloride (98-107) mmol/L Carbon Dioxide (22-30) mmol/L BUN (7-17) mg/dL Creatinine (0.52-1.04) mg/dL Glucose (74-99) mg/dL POC Glucose (mg/dL) 230 H 219 H 226 H (75-99) mg/dL Total Bilirubin (0.2-1.3) mg/dL AST (14-36) U/L ALT (9-52) U/L Alkaline Phosphatase (38-126) U/L Ammonia (<30) umol/L Total Protein (6.3-8.2) g/dL Albumin (3.5-5.0) g/dL 04/10/18 04/10/18 04/10/18 Range/Units 04:07 04:07 04:07 MCV 79.0 L (80.0-100.0) fL MCH 24.8 L (25.0-35.0) pg Plt Count 133 L (150-450) k/uL PT 18.3 H (9.0-12.0) sec INR 2.0 H (<1.2) ABG pH (7.35-7.45) ABG pCO2 (35-45) mmHg ABG HCO3 (21-25) mmol/L ABG Total CO2 (19-24) mmol/L Sodium 136 L (137-145) mmol/L Potassium 5.6 H (3.5-5.1) mmol/L Chloride 96 L (98-107) mmol/L Carbon Dioxide 31 H (22-30) mmol/L BUN 56 H (7-17) mg/dL Creatinine 1.10 H (0.52-1.04) mg/dL Glucose 241 H (74-99) mg/dL POC Glucose (mg/dL) (75-99) mg/dL Total Bilirubin 1.6 H (0.2-1.3) mg/dL AST 1451 H (14-36) U/L ALT 1424 H (9-52) U/L Alkaline Phosphatase 275 H (38-126) U/L Ammonia (<30) umol/L Total Protein 5.3 L (6.3-8.2) g/dL Albumin 2.8 L (3.5-5.0) g/dL 04/10/18 04/10/18 04/10/18 Range/Units 04:09 05:05 06:08 MCV (80.0-100.0) fL MCH (25.0-35.0) pg Plt Count (150-450) k/uL PT (9.0-12.0) sec INR (<1.2) ABG pH (7.35-7.45) ABG pCO2 (35-45) mmHg ABG HCO3 (21-25) mmol/L ABG Total CO2 (19-24) mmol/L Sodium (137-145) mmol/L Potassium (3.5-5.1) mmol/L Chloride (98-107) mmol/L Carbon Dioxide (22-30) mmol/L BUN (7-17) mg/dL Creatinine (0.52-1.04) mg/dL Glucose (74-99) mg/dL POC Glucose (mg/dL) 269 H 231 H 234 H (75-99) mg/dL Total Bilirubin (0.2-1.3) mg/dL AST (14-36) U/L ALT (9-52) U/L Alkaline Phosphatase (38-126) U/L Ammonia (<30) umol/L Total Protein (6.3-8.2) g/dL Albumin (3.5-5.0) g/dL 04/10/18 04/10/18 04/10/18 Range/Units 07:02 07:30 07:57 MCV (80.0-100.0) fL MCH (25.0-35.0) pg Plt Count (150-450) k/uL PT (9.0-12.0) sec INR (<1.2) ABG pH 7.60 H* (7.35-7.45) ABG pCO2 30 L (35-45) mmHg ABG HCO3 29 H (21-25) mmol/L ABG Total CO2 30 H (19-24) mmol/L Sodium (137-145) mmol/L Potassium (3.5-5.1) mmol/L Chloride (98-107) mmol/L Carbon Dioxide (22-30) mmol/L BUN (7-17) mg/dL Creatinine (0.52-1.04) mg/dL Glucose (74-99) mg/dL POC Glucose (mg/dL) 207 H 201 H (75-99) mg/dL Total Bilirubin (0.2-1.3) mg/dL AST (14-36) U/L ALT (9-52) U/L Alkaline Phosphatase (38-126) U/L Ammonia (<30) umol/L Total Protein (6.3-8.2) g/dL Albumin (3.5-5.0) g/dL 04/10/18 04/10/18 04/10/18 Range/Units 08:58 10:07 12:10 MCV (80.0-100.0) fL MCH (25.0-35.0) pg Plt Count (150-450) k/uL PT (9.0-12.0) sec INR (<1.2) ABG pH (7.35-7.45) ABG pCO2 (35-45) mmHg ABG HCO3 (21-25) mmol/L ABG Total CO2 (19-24) mmol/L Sodium (137-145) mmol/L Potassium (3.5-5.1) mmol/L Chloride (98-107) mmol/L Carbon Dioxide (22-30) mmol/L BUN (7-17) mg/dL Creatinine (0.52-1.04) mg/dL Glucose (74-99) mg/dL POC Glucose (mg/dL) 196 H 208 H 195 H (75-99) mg/dL Total Bilirubin (0.2-1.3) mg/dL AST (14-36) U/L ALT (9-52) U/L Alkaline Phosphatase (38-126) U/L Ammonia (<30) umol/L Total Protein (6.3-8.2) g/dL Albumin (3.5-5.0) g/dL Microbiology - Last 24 Hours (Table) 04/08/18 08:24 Blood Culture - Preliminary Blood No Growth after 48 hours 04/08/18 06:01 Gram Stain - Final Sputum Sputum Culture - Final 04/07/18 20:25 Urine Culture - Final Urine,Voided Escherichia coli 04/07/18 20:25 Blood Culture - Preliminary Blood No Growth after 48 hours 04/08/18 Unknown Urine Culture - Final Urine,Catheterized 04/08/18 05:30 Urine Culture - Final Urine,Catheterized Assessment and Plan Assessment: Impression: 1 acute hypoxic respiratory failure secondary to congestive heart failure, systolic in nature patient is known to have history of ischemic cardiomyopathy. And LV dysfunction. Chest x-ray today continues to show pulmonary venous congestion and possibly left-sided pleural effusion. 2 acute urinary tract infection, strongly suspect sepsis secondary to UTI. 3 acute shock liver with elevated transaminases most likely secondary to hypoperfusion. 4 coronary artery disease and previous CABG with stent placements and ischemic cardiomyopathy post-AICD. 5 severe peripheral artery disease and multiple endovascular placement of stents including aortic stent left iliac femoral-femoral bypass surgery and great saphenous vein at [facility]. 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 14 history of recurrent episodes of syncope secondary to orthostatic hypotension. 15 history of mixed hyperlipidemia. 16 acute CVA with significantly abnormal CT of the brain involving right hemisphere and left frontal lobe. Recommendation: Continue for now ventilatory support, family was updated on her condition, and on the new findings on the CT of the brain. Her and her daughter clearly expressed her wishes and her previously expressed wishes as no resuscitation, no CPR if her heart is to stop. They will meet among themselves, and likely discuss with the neurologist that prognostic picture, and if it seems to be hopeless and poor quality of life, they would likely proceed to comfort care measures. And terminal weaning. This will be decided upon hopefully sometime today or in the next 24 hours. Some other family members are coming out of town. In the meantime we'll continue supportive care measures, continue ventilatory support, nutritional support, hemodynamic support, GI and DVT prophylaxis, patient remains critically ill. Critical care time is 40 minutes. Time with Patient: Greater than 30
[2018-04-10 13:06] LABS: Glucose,Whole Blood 189 mg/dL (75-99)
[2018-04-10 14:07] LABS: Glucose,Whole Blood 209 mg/dL (75-99)
[2018-04-10 15:20] LABS: Glucose,Whole Blood 185 mg/dL (75-99)
[2018-04-10 16:12] LABS: Glucose,Whole Blood 210 mg/dL (75-99)
--- NOTE | 2018-04-10 16:18 | P.PN ---
Subjective Progress Note Date: 04/10/18 This is a 73-year-old female one of Dr. Latha Amezcua with a previous medical history significant for coronary artery disease status post coronary artery bypass graft with ischemic cardio myopathy and percutaneous coronary intervention and a total of 4 stents placement last one was put in the LAD back in November 2014, AICD placement, cardiomyopathy EF 43%, CABG with ischemic heart disease, patent HA, saphenous vein graft to RCA, 100% occluded circumflex with collaterals, recent echocardiogram revealed echo 20-25% with severe global hypokinesia, moderate MR, moderate pulmonary hypertension October 2017 echocardiogram.history of left subclavian stenosis status post stenting, carotid artery disease status post bilateral carotid endarterectomies, severe peripheral arterial occlusive disease, vasculitis , severe PAD with recent endovascular placement of aortic stent for occlusive disease of the aorta, left iliac stent, fem-fem bypass with greater saphenous vein at [facility]. Goldie at [facility], her arterial ulcers in the legs have since then resolved after vascular intervention. She has a tilt table positive test with drop on systolic blood pressure, required florinef Patient complained of early satiety, bloating, weight loss, was seen in the office and was prescribed Reglan, no antibiotic was given, patient now comes in with increasing fatigue, started getting around the house, altered mentation, no melena hematochezia, no diarrhea, has chills, she comes in septic, she got into respiratory failure, 4 hours after initial ER evaluation, requiring intubation. In the emergency room. Her liver function tests in December were normal, however on presentation, ammonia was 9 troponin 0.2 lactic acid 5.2 BUN 43 creatinine 0.9 bilirubin 2.5 AST 3607 ALT 2075, the basic count 10.2 INR 2.4 patient is not on any anticoagulation at home urinalysis shows significant pyuria of 81 with many WBC clumping noted cloudy urine specific gravity of 1.043 , urine drug screen negative.. CAT scan of the abdomen shows moderate L3-L4 bony spinal stenosis, sigmoid diverticulosis without diverticulitis, mild ascites, decreased density lower lobe right kidney related to renal ischemia and no evidence of renal mass patchy atelectasis lung bases prior cholecystectomy no mesenteric edema Patient currently is in ICU, sedated, mechanical ventilation tidal volume 400 assist control 20 FiO2 45% with PEEP of 5 patient is not responsive to any stimuli, follows in the ICU by multiple specialists including electric motors salesperson Dr. [place], cardiology, GI, services 04/09: Patient continues to be in ICU, sedated, mechanical ventilation tidal volume 400 assist control 20, FiO2 45% with a PEEP of 5. Patient is not responsive to any stimuli. Liver enzymes are improving. Patient continues to be intubated and sedated. There was noted hemiparesis of the left arm which is new. Hemoglobin is 10.1, platelets 129 INR 2.3, ABG pH 7.6, potassium 2.9, chloride 97 BUN 46 creatinine 1.13, AST 2107, ALT 1471, alkaline phosphatase 178. Urinary output 50-70 mL per hour. 04/10- CAT scan of the brain shows a new acute large right-sided infarct involving frontoparietal region with occipital extension. New evolving smaller but moderate-sized acute infarct left frontal lobe. Chest x-ray shows small left pleural effusion. Multiple family members are at the bedside. Patient has been made DO NOT RESUSCITATE. Patient has been off propofol for 24 hours and is unresponsive. They have a family member driving from [place] and son coming from [facility] and they are planning to make her comfort care only at that time. Review Of Systems: Unable to be obtained as patient is intubated Objective - Vital Signs Vital signs: Vital Signs Temp 98.0 F 04/10/18 04:00 Pulse 91 04/10/18 08:10 Resp 24 04/10/18 07:00 BP 101/68 04/10/18 07:00 Pulse Ox 96 04/10/18 07:00 Intake & Output 04/09/18 04/10/18 04/10/18 18:59 06:59 18:59 Intake Total 1272.498 638.962 54.763 Output Total 1445 475 30 Balance -172.502 163.962 24.763 Weight 61.1 kg Intake: IV 575 120 10 0.9 KVO 220 120 10 Diltiazem 50 mg In Sodium 5 Chloride 0.9% 40 ml @ 5 MG/HR 5 mls/hr IV .Q10H [facility] Rx#:[id number] Magnesium Sulfate-D5w Pmx 300 1 gm In Dextrose/Water 1 100ml.bag @ 100 mls/hr IVPB Q1H [facility] Rx#: [id number] Phytonadione 10 mg In 50 Sodium Chloride 0.9% 50 ml @ 100 mls/hr IVPB Q24H [facility] Rx#:[id number] Intake, IV Titration 37.498 38.962 9.763 Amount Insulin Regular 100 unit 37.498 38.962 9.763 In Sodium Chloride 0.9% 100 ml @ Per Protocol IV .Q0M [facility] Rx#:[id number] Tube Feeding 360 420 35 Other 300 60 Output: Urine 1445 475 30 Other: Voiding Method Indwelling Catheter Indwelling Catheter ABP, PAP, CO, CI - Last Documented Arterial Blood Pressure 91/60 - Exam General appearance: Present: average body habitus, no acute distress. Patient appears to be comfortable. - EENT Eyes: Present: anicteric sclerae, PERRLA, normal appearance - Neck Neck: Present: normal ROM - Respiratory Respiratory: bilateral: CTA, negative: diminished, dullness, rales, rhonchi, wheezing - Cardiovascular Rhythm: regular Heart sounds: normal: S1, S2 Abnormal Heart Sounds: Present: systolic murmur - Gastrointestinal General gastrointestinal: Present: decreased bowel sounds, soft - Integumentary Integumentary: Present: decreased turgor, normal - Musculoskeletal Musculoskeletal Comment(s): Unable to obtain patient on a vent - Labs CBC & Chem 7: 04/10/18 04:07 04/10/18 04:07 Labs: Abnormal Lab Results - Last 24 Hours (Table) 04/09/18 04/09/18 04/09/18 Range/Units 09:09 10:59 11:51 MCV (80.0-100.0) fL MCH (25.0-35.0) pg Plt Count (150-450) k/uL PT (9.0-12.0) sec INR (<1.2) ABG pH (7.35-7.45) ABG pCO2 (35-45) mmHg ABG HCO3 (21-25) mmol/L ABG Total CO2 (19-24) mmol/L Sodium (137-145) mmol/L Potassium (3.5-5.1) mmol/L Chloride (98-107) mmol/L Carbon Dioxide (22-30) mmol/L BUN (7-17) mg/dL Creatinine (0.52-1.04) mg/dL Glucose (74-99) mg/dL POC Glucose (mg/dL) 171 H 175 H 169 H (75-99) mg/dL Total Bilirubin (0.2-1.3) mg/dL AST (14-36) U/L ALT (9-52) U/L Alkaline Phosphatase (38-126) U/L Ammonia (<30) umol/L Total Protein (6.3-8.2) g/dL Albumin (3.5-5.0) g/dL 04/09/18 04/09/18 04/09/18 Range/Units 13:10 13:13 14:13 MCV (80.0-100.0) fL MCH (25.0-35.0) pg Plt Count (150-450) k/uL PT (9.0-12.0) sec INR (<1.2) ABG pH (7.35-7.45) ABG pCO2 (35-45) mmHg ABG HCO3 (21-25) mmol/L ABG Total CO2 (19-24) mmol/L Sodium (137-145) mmol/L Potassium 3.3 L (3.5-5.1) mmol/L Chloride (98-107) mmol/L Carbon Dioxide (22-30) mmol/L BUN (7-17) mg/dL Creatinine (0.52-1.04) mg/dL Glucose (74-99) mg/dL POC Glucose (mg/dL) 198 H 177 H (75-99) mg/dL Total Bilirubin (0.2-1.3) mg/dL AST (14-36) U/L ALT (9-52) U/L Alkaline Phosphatase (38-126) U/L Ammonia (<30) umol/L Total Protein (6.3-8.2) g/dL Albumin (3.5-5.0) g/dL 04/09/18 04/09/18 04/09/18 Range/Units 15:03 15:56 17:10 MCV (80.0-100.0) fL MCH (25.0-35.0) pg Plt Count (150-450) k/uL PT (9.0-12.0) sec INR (<1.2) ABG pH (7.35-7.45) ABG pCO2 (35-45) mmHg ABG HCO3 (21-25) mmol/L ABG Total CO2 (19-24) mmol/L Sodium (137-145) mmol/L Potassium (3.5-5.1) mmol/L Chloride (98-107) mmol/L Carbon Dioxide (22-30) mmol/L BUN (7-17) mg/dL Creatinine (0.52-1.04) mg/dL Glucose (74-99) mg/dL POC Glucose (mg/dL) 159 H 132 H (75-99) mg/dL Total Bilirubin (0.2-1.3) mg/dL AST (14-36) U/L ALT (9-52) U/L Alkaline Phosphatase (38-126) U/L Ammonia 30 H (<30) umol/L Total Protein (6.3-8.2) g/dL Albumin (3.5-5.0) g/dL 04/09/18 04/09/18 04/09/18 Range/Units 17:10 17:56 19:01 MCV (80.0-100.0) fL MCH (25.0-35.0) pg Plt Count (150-450) k/uL PT (9.0-12.0) sec INR (<1.2) ABG pH (7.35-7.45) ABG pCO2 (35-45) mmHg ABG HCO3 (21-25) mmol/L ABG Total CO2 (19-24) mmol/L Sodium (137-145) mmol/L Potassium (3.5-5.1) mmol/L Chloride (98-107) mmol/L Carbon Dioxide (22-30) mmol/L BUN (7-17) mg/dL Creatinine (0.52-1.04) mg/dL Glucose (74-99) mg/dL POC Glucose (mg/dL) 146 H 121 H 159 H (75-99) mg/dL Total Bilirubin (0.2-1.3) mg/dL AST (14-36) U/L ALT (9-52) U/L Alkaline Phosphatase (38-126) U/L Ammonia (<30) umol/L Total Protein (6.3-8.2) g/dL Albumin (3.5-5.0) g/dL 04/09/18 04/09/18 04/09/18 Range/Units 20:02 20:59 21:57 MCV (80.0-100.0) fL MCH (25.0-35.0) pg Plt Count (150-450) k/uL PT (9.0-12.0) sec INR (<1.2) ABG pH (7.35-7.45) ABG pCO2 (35-45) mmHg ABG HCO3 (21-25) mmol/L ABG Total CO2 (19-24) mmol/L Sodium (137-145) mmol/L Potassium (3.5-5.1) mmol/L Chloride (98-107) mmol/L Carbon Dioxide (22-30) mmol/L BUN (7-17) mg/dL Creatinine (0.52-1.04) mg/dL Glucose (74-99) mg/dL POC Glucose (mg/dL) 170 H 185 H 192 H (75-99) mg/dL Total Bilirubin (0.2-1.3) mg/dL AST (14-36) U/L ALT (9-52) U/L Alkaline Phosphatase (38-126) U/L Ammonia (<30) umol/L Total Protein (6.3-8.2) g/dL Albumin (3.5-5.0) g/dL 04/09/18 04/10/18 04/10/18 Range/Units 23:03 00:07 00:08 MCV (80.0-100.0) fL MCH (25.0-35.0) pg Plt Count (150-450) k/uL PT (9.0-12.0) sec INR (<1.2) ABG pH (7.35-7.45) ABG pCO2 (35-45) mmHg ABG HCO3 (21-25) mmol/L ABG Total CO2 (19-24) mmol/L Sodium (137-145) mmol/L Potassium 5.2 H (3.5-5.1) mmol/L Chloride (98-107) mmol/L Carbon Dioxide (22-30) mmol/L BUN (7-17) mg/dL Creatinine (0.52-1.04) mg/dL Glucose (74-99) mg/dL POC Glucose (mg/dL) 268 H 260 H (75-99) mg/dL Total Bilirubin (0.2-1.3) mg/dL AST (14-36) U/L ALT (9-52) U/L Alkaline Phosphatase (38-126) U/L Ammonia (<30) umol/L Total Protein (6.3-8.2) g/dL Albumin (3.5-5.0) g/dL 04/10/18 04/10/18 04/10/18 Range/Units 01:05 02:07 03:06 MCV (80.0-100.0) fL MCH (25.0-35.0) pg Plt Count (150-450) k/uL PT (9.0-12.0) sec INR (<1.2) ABG pH (7.35-7.45) ABG pCO2 (35-45) mmHg ABG HCO3 (21-25) mmol/L ABG Total CO2 (19-24) mmol/L Sodium (137-145) mmol/L Potassium (3.5-5.1) mmol/L Chloride (98-107) mmol/L Carbon Dioxide (22-30) mmol/L BUN (7-17) mg/dL Creatinine (0.52-1.04) mg/dL Glucose (74-99) mg/dL POC Glucose (mg/dL) 230 H 219 H 226 H (75-99) mg/dL Total Bilirubin (0.2-1.3) mg/dL AST (14-36) U/L ALT (9-52) U/L Alkaline Phosphatase (38-126) U/L Ammonia (<30) umol/L Total Protein (6.3-8.2) g/dL Albumin (3.5-5.0) g/dL 04/10/18 04/10/18 04/10/18 Range/Units 04:07 04:07 04:07 MCV 79.0 L (80.0-100.0) fL MCH 24.8 L (25.0-35.0) pg Plt Count 133 L (150-450) k/uL PT 18.3 H (9.0-12.0) sec INR 2.0 H (<1.2) ABG pH (7.35-7.45) ABG pCO2 (35-45) mmHg ABG HCO3 (21-25) mmol/L ABG Total CO2 (19-24) mmol/L Sodium 136 L (137-145) mmol/L Potassium 5.6 H (3.5-5.1) mmol/L Chloride 96 L (98-107) mmol/L Carbon Dioxide 31 H (22-30) mmol/L BUN 56 H (7-17) mg/dL Creatinine 1.10 H (0.52-1.04) mg/dL Glucose 241 H (74-99) mg/dL POC Glucose (mg/dL) (75-99) mg/dL Total Bilirubin 1.6 H (0.2-1.3) mg/dL AST 1451 H (14-36) U/L ALT 1424 H (9-52) U/L Alkaline Phosphatase 275 H (38-126) U/L Ammonia (<30) umol/L Total Protein 5.3 L (6.3-8.2) g/dL Albumin 2.8 L (3.5-5.0) g/dL 04/10/18 04/10/18 04/10/18 Range/Units 04:09 05:05 06:08 MCV (80.0-100.0) fL MCH (25.0-35.0) pg Plt Count (150-450) k/uL PT (9.0-12.0) sec INR (<1.2) ABG pH (7.35-7.45) ABG pCO2 (35-45) mmHg ABG HCO3 (21-25) mmol/L ABG Total CO2 (19-24) mmol/L Sodium (137-145) mmol/L Potassium (3.5-5.1) mmol/L Chloride (98-107) mmol/L Carbon Dioxide (22-30) mmol/L BUN (7-17) mg/dL Creatinine (0.52-1.04) mg/dL Glucose (74-99) mg/dL POC Glucose (mg/dL) 269 H 231 H 234 H (75-99) mg/dL Total Bilirubin (0.2-1.3) mg/dL AST (14-36) U/L ALT (9-52) U/L Alkaline Phosphatase (38-126) U/L Ammonia (<30) umol/L Total Protein (6.3-8.2) g/dL Albumin (3.5-5.0) g/dL 04/10/18 04/10/18 04/10/18 Range/Units 07:02 07:30 07:57 MCV (80.0-100.0) fL MCH (25.0-35.0) pg Plt Count (150-450) k/uL PT (9.0-12.0) sec INR (<1.2) ABG pH 7.60 H* (7.35-7.45) ABG pCO2 30 L (35-45) mmHg ABG HCO3 29 H (21-25) mmol/L ABG Total CO2 30 H (19-24) mmol/L Sodium (137-145) mmol/L Potassium (3.5-5.1) mmol/L Chloride (98-107) mmol/L Carbon Dioxide (22-30) mmol/L BUN (7-17) mg/dL Creatinine (0.52-1.04) mg/dL Glucose (74-99) mg/dL POC Glucose (mg/dL) 207 H 201 H (75-99) mg/dL Total Bilirubin (0.2-1.3) mg/dL AST (14-36) U/L ALT (9-52) U/L Alkaline Phosphatase (38-126) U/L Ammonia (<30) umol/L Total Protein (6.3-8.2) g/dL Albumin (3.5-5.0) g/dL Microbiology - Last 24 Hours (Table) 04/08/18 06:01 Gram Stain - Final Sputum Sputum Culture - Final 04/07/18 20:25 Urine Culture - Final Urine,Voided Escherichia coli 04/07/18 20:25 Blood Culture - Preliminary Blood No Growth after 48 hours 04/08/18 Unknown Urine Culture - Final Urine,Catheterized 04/08/18 05:30 Urine Culture - Final Urine,Catheterized 04/08/18 08:24 Blood Culture - Preliminary Blood No Growth after 24 hours Assessment and Plan Plan: 1. Sepsis with altered organ failure including acute hypoxemic respiratory failure, shock liver, hypoperfusion related to sepsis, lactic acidosis, urinary tract infection seems to be the primary source, patient was in consultation by multiple specialists including critical care medicine, neurology, might need infectious disease depending on clinical outcomes. Continue IV antibiotics, DuoNeb treatments. Cultures in progress. 2. Acute on chronic systolic heart failure, Lasix IV 80 mg every 12 hours 3. Acute on chronic CKD stage II 4. Elevated troponin most likely secondary to septic shock, cardiology is consulted, echocardiogram requested 5. CAD post CABGand stent placements with ischemic cardiopathy post AICD. Continue aspirin, Plavix, Lopressor.. 6. Acute liver failure possibly secondary to septic shock against passive CHF, patient also has underlying coagulopathy, patient has had also weight loss for the past few months, other labs include JAMMIE, and CA 19 CEA AFP, GI is on consult. Prior history of cholecystectomy. 7. Severe PAD post evaluation by vascular surgery status post recent endovascular placement of aortic stent for occlusive disease of the aorta, left iliac stent, and fem-fem bypass with great saphenous vein at [facility]. Continue Plavix. 8. Carotid artery disease status post carotid endarterectomies. Continue aspirin 81 mg daily and Plavix 75 mg daily. No statin due to shock liver. 9. Ucontrolled diabetes mellitus type 2 with PVD complications, diabetic neuropathy, continue insulin drip. 10. Hypertension and hypertensive cardio vascular disease. lisinopril on hold secondary to hypotension, Imdur and hold, metoprolol will be held based on systolic blood pressure less than 100. 11. Hyperlipidemia. Hold patient on Lipitor 80 mg orally once every day. 12. History of left subclavian stenosis. Post stenting. Stable at this time. 13. History of GERD. IV Protonix 14. Vitamin D deficiency. Hold patient on vitamin D 1000 units once every day. 15. Recurrent Depression. Continue Cymbalta 60 mg orally once every day. 16. Post polio. 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 Gabapentin 100 mg 3 times a day 17. 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 18. History of left subclavianstenosis status post stenting 19. spinal stenosis L3-L4, L4-L5, severe R L3-L4 area with moderate severe spinal stenosis posterior disc bulging with facet arthropathy, based on CAT scan 09/20/2017physical therapy, might need consult with Dr. Crocker 20. DVT prophylaxis. 21. GI prophylaxis. Continue PPI. 22. Autonomic dysfunction Recurrent falls, physical therapy and occupational therapy to see the patient when stabilized 23. Acute right sided infarct in the frontal parietal region with occipital extension. Plan is for terminal wean. CODE STATUS no code Discharge plan: Terminal wean once family members arrive from out of state. Impression and plan of care have been directed as dictated by the signing physician. Edie Martinez nurse practitioner acting as scribe for signing physician.
[2018-04-10] MEDS: PHYTONADIONE 10 MG in SODIUM CHLORIDE 0.9% 50 ML IVPB SCH (17:05)
[2018-04-10 17:22] LABS: Glucose,Whole Blood 188 mg/dL (75-99)
--- NOTE | 2018-04-10 17:47 | P.PN ---
Subjective Progress Note Date: 04/10/18 Principal diagnosis: Anoxic Brain Injury Neurology is following on a 73 year old female for anoxic brain injury. she was brought to the emergency room with complaints of abdominal pain and weakness. Patient developed acute hypoxic respiratory failure, CPR was done for approximately 45 minutes. Patient was intubated. Patient has multiple medical comorbidities including ischemic cardiomyopathy, coronary artery disease, peripheral vessel occlusive disease with multiple stent placements. CT of brain was done which showed evidence of old ischemic stroke involving left occipital lobe along with generalized atrophy. 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 Urinalysis showed 38 WBCs with large leukocyte esterase and negative nitrites. Patient was intubated after being sedated with propofol was held for 6 hours initially for a neurological evaluation by supervising physician on . Today, patient is intubated on a ventilator and not sedated at this time. Patient is unresponsive to any painful stimuli. Pupils are pinpoint. CT of the brain yesterday revealed new acute right-sided infarct involving the frontal parietal region with occipital extension and new evolving smaller but moderate sized acute left frontal lobe infarct. Patient was placed on Decadron by supervising physician. Objective - Vital Signs Vital signs: Vital Signs Temp 98.0 F 04/10/18 12:00 Pulse 91 04/10/18 16:16 Resp 23 04/10/18 15:00 BP 104/65 04/10/18 15:00 Pulse Ox 97 04/10/18 15:00 Intake & Output 04/09/18 04/10/18 04/10/18 18:59 06:59 18:59 Intake Total 1272.498 638.962 664.996 Output Total 1445 475 280 Balance -172.502 163.962 384.996 Weight 61.1 kg 61.1 kg Intake: IV 575 120 170 0.9 KVO 220 120 170 Diltiazem 50 mg In Sodium 5 Chloride 0.9% 40 ml @ 5 MG/HR 5 mls/hr IV .Q10H NOE Rx#:[id number] Magnesium Sulfate-D5w Pmx 300 1 gm In Dextrose/Water 1 100ml.bag @ 100 mls/hr IVPB Q1H NOE Rx#: [id number] Phytonadione 10 mg In 50 Sodium Chloride 0.9% 50 ml @ 100 mls/hr IVPB Q24H NOE Rx#:[id number] Intake, IV Titration 37.498 38.962 39.996 Amount Insulin Regular 100 unit 37.498 38.962 39.996 In Sodium Chloride 0.9% 100 ml @ Per Protocol IV .Q0M NOE Rx#:[id number] Tube Feeding 360 420 455 Other 300 60 Output: Urine 1445 475 280 Other: Voiding Method Indwelling Catheter Indwelling Catheter Indwelling Catheter ABP, PAP, CO, CI - Last Documented Arterial Blood Pressure 87/62 - Exam he is unresponsive to any verbal or painful stimuli involving all 4 extremities and sternal rub. Patient is silent toes bilaterally. Andrew sign is negative bilateral upper extremities. Brainstem reflexes showed absent corneal reflex and oculocephalic reflex consistent with testing yesterday. Extremities are flaccid bilaterally. No tremors or seizure-like activity observed. No obvious facial asymmetry. - Labs CBC & Chem 7: 04/10/18 04:07 04/10/18 04:07 Labs: Abnormal Lab Results - Last 24 Hours (Table) 04/09/18 04/09/18 04/09/18 Range/Units 17:10 17:56 19:01 MCV (80.0-100.0) fL MCH (25.0-35.0) pg Plt Count (150-450) k/uL PT (9.0-12.0) sec INR (<1.2) ABG pH (7.35-7.45) ABG pCO2 (35-45) mmHg ABG HCO3 (21-25) mmol/L ABG Total CO2 (19-24) mmol/L Sodium (137-145) mmol/L Potassium (3.5-5.1) mmol/L Chloride (98-107) mmol/L Carbon Dioxide (22-30) mmol/L BUN (7-17) mg/dL Creatinine (0.52-1.04) mg/dL Glucose (74-99) mg/dL POC Glucose (mg/dL) 121 H 159 H (75-99) mg/dL Total Bilirubin (0.2-1.3) mg/dL AST (14-36) U/L ALT (9-52) U/L Alkaline Phosphatase (38-126) U/L Ammonia 30 H (<30) umol/L Total Protein (6.3-8.2) g/dL Albumin (3.5-5.0) g/dL 04/09/18 04/09/18 04/09/18 Range/Units 20:02 20:59 21:57 MCV (80.0-100.0) fL MCH (25.0-35.0) pg Plt Count (150-450) k/uL PT (9.0-12.0) sec INR (<1.2) ABG pH (7.35-7.45) ABG pCO2 (35-45) mmHg ABG HCO3 (21-25) mmol/L ABG Total CO2 (19-24) mmol/L Sodium (137-145) mmol/L Potassium (3.5-5.1) mmol/L Chloride (98-107) mmol/L Carbon Dioxide (22-30) mmol/L BUN (7-17) mg/dL Creatinine (0.52-1.04) mg/dL Glucose (74-99) mg/dL POC Glucose (mg/dL) 170 H 185 H 192 H (75-99) mg/dL Total Bilirubin (0.2-1.3) mg/dL AST (14-36) U/L ALT (9-52) U/L Alkaline Phosphatase (38-126) U/L Ammonia (<30) umol/L Total Protein (6.3-8.2) g/dL Albumin (3.5-5.0) g/dL 04/09/18 04/10/18 04/10/18 Range/Units 23:03 00:07 00:08 MCV (80.0-100.0) fL MCH (25.0-35.0) pg Plt Count (150-450) k/uL PT (9.0-12.0) sec INR (<1.2) ABG pH (7.35-7.45) ABG pCO2 (35-45) mmHg ABG HCO3 (21-25) mmol/L ABG Total CO2 (19-24) mmol/L Sodium (137-145) mmol/L Potassium 5.2 H (3.5-5.1) mmol/L Chloride (98-107) mmol/L Carbon Dioxide (22-30) mmol/L BUN (7-17) mg/dL Creatinine (0.52-1.04) mg/dL Glucose (74-99) mg/dL POC Glucose (mg/dL) 268 H 260 H (75-99) mg/dL Total Bilirubin (0.2-1.3) mg/dL AST (14-36) U/L ALT (9-52) U/L Alkaline Phosphatase (38-126) U/L Ammonia (<30) umol/L Total Protein (6.3-8.2) g/dL Albumin (3.5-5.0) g/dL 04/10/18 04/10/18 04/10/18 Range/Units 01:05 02:07 03:06 MCV (80.0-100.0) fL MCH (25.0-35.0) pg Plt Count (150-450) k/uL PT (9.0-12.0) sec INR (<1.2) ABG pH (7.35-7.45) ABG pCO2 (35-45) mmHg ABG HCO3 (21-25) mmol/L ABG Total CO2 (19-24) mmol/L Sodium (137-145) mmol/L Potassium (3.5-5.1) mmol/L Chloride (98-107) mmol/L Carbon Dioxide (22-30) mmol/L BUN (7-17) mg/dL Creatinine (0.52-1.04) mg/dL Glucose (74-99) mg/dL POC Glucose (mg/dL) 230 H 219 H 226 H (75-99) mg/dL Total Bilirubin (0.2-1.3) mg/dL AST (14-36) U/L ALT (9-52) U/L Alkaline Phosphatase (38-126) U/L Ammonia (<30) umol/L Total Protein (6.3-8.2) g/dL Albumin (3.5-5.0) g/dL 04/10/18 04/10/18 04/10/18 Range/Units 04:07 04:07 04:07 MCV 79.0 L (80.0-100.0) fL MCH 24.8 L (25.0-35.0) pg Plt Count 133 L (150-450) k/uL PT 18.3 H (9.0-12.0) sec INR 2.0 H (<1.2) ABG pH (7.35-7.45) ABG pCO2 (35-45) mmHg ABG HCO3 (21-25) mmol/L ABG Total CO2 (19-24) mmol/L Sodium 136 L (137-145) mmol/L Potassium 5.6 H (3.5-5.1) mmol/L Chloride 96 L (98-107) mmol/L Carbon Dioxide 31 H (22-30) mmol/L BUN 56 H (7-17) mg/dL Creatinine 1.10 H (0.52-1.04) mg/dL Glucose 241 H (74-99) mg/dL POC Glucose (mg/dL) (75-99) mg/dL Total Bilirubin 1.6 H (0.2-1.3) mg/dL AST 1451 H (14-36) U/L ALT 1424 H (9-52) U/L Alkaline Phosphatase 275 H (38-126) U/L Ammonia (<30) umol/L Total Protein 5.3 L (6.3-8.2) g/dL Albumin 2.8 L (3.5-5.0) g/dL 04/10/18 04/10/18 04/10/18 Range/Units 04:09 05:05 06:08 MCV (80.0-100.0) fL MCH (25.0-35.0) pg Plt Count (150-450) k/uL PT (9.0-12.0) sec INR (<1.2) ABG pH (7.35-7.45) ABG pCO2 (35-45) mmHg ABG HCO3 (21-25) mmol/L ABG Total CO2 (19-24) mmol/L Sodium (137-145) mmol/L Potassium (3.5-5.1) mmol/L Chloride (98-107) mmol/L Carbon Dioxide (22-30) mmol/L BUN (7-17) mg/dL Creatinine (0.52-1.04) mg/dL Glucose (74-99) mg/dL POC Glucose (mg/dL) 269 H 231 H 234 H (75-99) mg/dL Total Bilirubin (0.2-1.3) mg/dL AST (14-36) U/L ALT (9-52) U/L Alkaline Phosphatase (38-126) U/L Ammonia (<30) umol/L Total Protein (6.3-8.2) g/dL Albumin (3.5-5.0) g/dL 04/10/18 04/10/18 04/10/18 Range/Units 07:02 07:30 07:57 MCV (80.0-100.0) fL MCH (25.0-35.0) pg Plt Count (150-450) k/uL PT (9.0-12.0) sec INR (<1.2) ABG pH 7.60 H* (7.35-7.45) ABG pCO2 30 L (35-45) mmHg ABG HCO3 29 H (21-25) mmol/L ABG Total CO2 30 H (19-24) mmol/L Sodium (137-145) mmol/L Potassium (3.5-5.1) mmol/L Chloride (98-107) mmol/L Carbon Dioxide (22-30) mmol/L BUN (7-17) mg/dL Creatinine (0.52-1.04) mg/dL Glucose (74-99) mg/dL POC Glucose (mg/dL) 207 H 201 H (75-99) mg/dL Total Bilirubin (0.2-1.3) mg/dL AST (14-36) U/L ALT (9-52) U/L Alkaline Phosphatase (38-126) U/L Ammonia (<30) umol/L Total Protein (6.3-8.2) g/dL Albumin (3.5-5.0) g/dL 04/10/18 04/10/18 04/10/18 Range/Units 08:58 10:07 12:10 MCV (80.0-100.0) fL MCH (25.0-35.0) pg Plt Count (150-450) k/uL PT (9.0-12.0) sec INR (<1.2) ABG pH (7.35-7.45) ABG pCO2 (35-45) mmHg ABG HCO3 (21-25) mmol/L ABG Total CO2 (19-24) mmol/L Sodium (137-145) mmol/L Potassium (3.5-5.1) mmol/L Chloride (98-107) mmol/L Carbon Dioxide (22-30) mmol/L BUN (7-17) mg/dL Creatinine (0.52-1.04) mg/dL Glucose (74-99) mg/dL POC Glucose (mg/dL) 196 H 208 H 195 H (75-99) mg/dL Total Bilirubin (0.2-1.3) mg/dL AST (14-36) U/L ALT (9-52) U/L Alkaline Phosphatase (38-126) U/L Ammonia (<30) umol/L Total Protein (6.3-8.2) g/dL Albumin (3.5-5.0) g/dL 04/10/18 04/10/18 04/10/18 Range/Units 13:05 14:05 15:18 MCV (80.0-100.0) fL MCH (25.0-35.0) pg Plt Count (150-450) k/uL PT (9.0-12.0) sec INR (<1.2) ABG pH (7.35-7.45) ABG pCO2 (35-45) mmHg ABG HCO3 (21-25) mmol/L ABG Total CO2 (19-24) mmol/L Sodium (137-145) mmol/L Potassium (3.5-5.1) mmol/L Chloride (98-107) mmol/L Carbon Dioxide (22-30) mmol/L BUN (7-17) mg/dL Creatinine (0.52-1.04) mg/dL Glucose (74-99) mg/dL POC Glucose (mg/dL) 189 H 209 H 185 H (75-99) mg/dL Total Bilirubin (0.2-1.3) mg/dL AST (14-36) U/L ALT (9-52) U/L Alkaline Phosphatase (38-126) U/L Ammonia (<30) umol/L Total Protein (6.3-8.2) g/dL Albumin (3.5-5.0) g/dL 04/10/18 04/10/18 Range/Units 16:10 17:21 MCV (80.0-100.0) fL MCH (25.0-35.0) pg Plt Count (150-450) k/uL PT (9.0-12.0) sec INR (<1.2) ABG pH (7.35-7.45) ABG pCO2 (35-45) mmHg ABG HCO3 (21-25) mmol/L ABG Total CO2 (19-24) mmol/L Sodium (137-145) mmol/L Potassium (3.5-5.1) mmol/L Chloride (98-107) mmol/L Carbon Dioxide (22-30) mmol/L BUN (7-17) mg/dL Creatinine (0.52-1.04) mg/dL Glucose (74-99) mg/dL POC Glucose (mg/dL) 210 H 188 H (75-99) mg/dL Total Bilirubin (0.2-1.3) mg/dL AST (14-36) U/L ALT (9-52) U/L Alkaline Phosphatase (38-126) U/L Ammonia (<30) umol/L Total Protein (6.3-8.2) g/dL Albumin (3.5-5.0) g/dL Microbiology - Last 24 Hours (Table) 04/08/18 08:24 Blood Culture - Preliminary Blood No Growth after 48 hours 04/08/18 06:01 Gram Stain - Final Sputum Sputum Culture - Final 04/07/18 20:25 Urine Culture - Final Urine,Voided Escherichia coli 04/07/18 20:25 Blood Culture - Preliminary Blood No Growth after 48 hours 04/08/18 Unknown Urine Culture - Final Urine,Catheterized 04/08/18 05:30 Urine Culture - Final Urine,Catheterized Assessment and Plan (1) Anoxia Current Visit: Yes Status: Acute Code(s): R09.02 - HYPOXEMIA SNOMED Code(s ): 05833952 (2) Hypoxic encephalopathy Current Visit: Yes Status: Acute Code(s): G93.1 - ANOXIC BRAIN DAMAGE, NOT ELSEWHERE CLASSIFIED SNOMED Code(s): 391409802 (3) Cardiomyopathy Current Visit: Yes Status: Acute Code(s): I42.9 - CARDIOMYOPATHY, UNSPECIFIED SNOMED Code(s): 23919417 (4) Altered mental status Current Visit: Yes Status: Acute Code(s): R41.82 - ALTERED MENTAL STATUS, UNSPECIFIED SNOMED Code(s): 908831625 (5) Respiratory failure Current Visit: Yes Status: Acute Code(s): J96.90 - RESPIRATORY FAILURE, UNSP , UNSP W HYPOXIA OR HYPERCAPNIA SNOMED Code(s): 018998305 Plan: Based on diagnostic workup, imaging findings, patient's response to ongoing treatment efforts highly recommend discussion with family regarding goals of care. No further treatment recommendations at this time. Further recommendations pending results of EEG. EEG has been taken, awaiting results. Neurology will provide updates as needed or warranted. I have discussed the plan of care with the physician prior to implementation and he agrees with the plan as implemented.
[2018-04-10 18:05] LABS: Glucose,Whole Blood 200 mg/dL (75-99)
[2018-04-10 19:33] LABS: Glucose,Whole Blood 175 mg/dL (75-99)
[2018-04-10 20:09] LABS: Glucose,Whole Blood 190 mg/dL (75-99)
[2018-04-10 21:12] LABS: Glucose,Whole Blood 154 mg/dL (75-99)
[2018-04-10 22:05] LABS: Glucose,Whole Blood 182 mg/dL (75-99)
[2018-04-10 23:05] LABS: Glucose,Whole Blood 192 mg/dL (75-99)
[2018-04-11 00:04] LABS: Glucose,Whole Blood 214 mg/dL (75-99)
[2018-04-11] MEDS: DEXTROSE 5% IN WATER 1,000 ML with SODIUM BICARB (1 MEQ/ML) 150 ML IV SCH (00:09)
[2018-04-11 01:06] LABS: Glucose,Whole Blood 217 mg/dL (75-99)
[2018-04-11] MEDS: INSULIN REGULAR 100 UNIT in SODIUM CHLORIDE 0.9% 100 ML IV SCH ×2 (01:40→23:51)
[2018-04-11 02:10] LABS: Glucose,Whole Blood 220 mg/dL (75-99)
[2018-04-11 03:03] LABS: Glucose,Whole Blood 204 mg/dL (75-99)
[2018-04-11] MEDS: IPRATROPIUM-ALBUTEROL 3 ML NEB INHALATION SCH ×6 (03:54→22:57)
[2018-04-11 04:04] LABS: Glucose,Whole Blood 237 mg/dL (75-99)
[2018-04-11] MEDS: DEXAMETHASONE SOD PHOSPHATE 4 MG/ML 1 ML VIAL IV SCH ×3 (04:16→20:59)
[2018-04-11 05:08] LABS: Glucose,Whole Blood 235 mg/dL (75-99)
[2018-04-11 05:12] LABS: HCT 36.6 % (34.0-46.0); HGB 11.6 gm/dL (11.4-16.0); Hypochromasia Moderate; MCH 24.3 pg (25.0-35.0); MCHC 31.6 g/dL (31.0-37.0); Mean Platelet Volume 10.4; Microcytosis Slight; Platelet Count 111 k/uL (150-450); Poikilocytosis Slight; RBC 4.75 m/uL (3.80-5.40); RDW 15.3 % (11.5-15.5); WBC 13.1 k/uL (3.8-10.6)
[2018-04-11 05:29] LABS: Albumin 2.7 g/dL (3.5-5.0); Calcium 8.7 mg/dL (8.4-10.2); Magnesium 1.8 mg/dL (1.6-2.3); Phosphorus 3.5 mg/dL (2.5-4.5); Potassium 4.4 mmol/L (3.5-5.1); Total Bilirubin 1.6 mg/dL (0.2-1.3); Total Protein 5.3 g/dL (6.3-8.2)
[2018-04-11] MEDS ORDERED: Magnesium Replacement Protocol 1 EACH MISC MISCELLANE PRN (06:12)
[2018-04-11 06:13] LABS: Glucose,Whole Blood 202 mg/dL (75-99)
[2018-04-11] MEDS: MAGNESIUM SULFATE-D5W PMX 1 GM in DEXTROSE/WATER 1 100ML.BAG IVPB SCH ×2 (06:26→08:16)
[2018-04-11 07:07] LABS: Glucose,Whole Blood 196 mg/dL (75-99)
--- NOTE | 2018-04-11 07:48 | XR ---
EXAMINATION TYPE: XR chest 1V portable DATE OF EXAM: 04/11/2018 CLINICAL HISTORY: Difficulty breathing progress study. TECHNIQUE: Single AP portable semiupright view of the chest is obtained. COMPARISON: Chest x-ray from one day earlier and older studies. FINDINGS: An endotracheal tube and orogastric tube are stable in appearance. There is persistent car diomegaly with single lead pacemaker/AICD. Post CABG changes with mediastinal clips and sternal wires is redemonstrated. There is background chronic emphysematous change with small left pleural effusion . There is patchy right medial basilar atelectasis and/or infiltrate. Osseous structures are deminera lized. Cholecystectomy clips are noted. IMPRESSION: Overall stable findings, cardiomegaly and chronic emphysematous change with small left pleural effusion and patchy medial right basilar atelectasis and/or infiltrate all redemonstrated.
[2018-04-11] MEDS: ENOXAPARIN 30 MG/0.3 ML SYRINGE SQ SCH (08:16)
[2018-04-11] MEDS: CHLORHEXIDINE GLUCONATE 15 ML CUP MUCOUS MEM SCH ×2 (08:16→20:59)
[2018-04-11] MEDS: FUROSEMIDE 10 MG/ML 10 ML VIAL IV SCH ×2 (08:16→20:59)
[2018-04-11] MEDS: DULoxetine HCL 60 MG CAPSULE.DR PO SCH (08:16)
[2018-04-11] MEDS: GABAPENTIN 100 MG CAP PO SCH ×3 (08:16→17:56)
[2018-04-11] MEDS: CLOPIDOGREL 75 MG TAB PO SCH (08:16)
[2018-04-11] MEDS: ASPIRIN 81 MG PO SCH (08:16)
[2018-04-11] MEDS: PANTOPRAZOLE 40 MG/10 ML VIAL IVP SCH (08:17)
[2018-04-11] MEDS: METOPROLOL TARTRATE 25 MG TAB PO SCH ×4 (08:17→20:59)
--- NOTE | 2018-04-11 08:44 | PN ---
PROGRESS NOTE Mrs. Colon is a 73 -year-old female who presented with a known history of coronary artery disease, ischemic cardiomyopathy, peripheral artery disease who presented with respiratory failure. She is intubated, was found to have large cerebrovascular accident on the CT scan. She remains intubated, unresponsive. Hemodynamically stable. She has been followed by the Neurology Service. There is no evidence of tachycardia or bradycardia. At this point, hemodynamically she is stable. She continues to be on aspirin 81 mg daily, Plavix 75 mg daily, furosemide 80 mg IV every 12 hours, metoprolol tartrate 25 mg 4 times a day. PHYSICAL EXAMINATION: Blood pressure 139/60 with a heart rate in the 90s. LUNGS: Clear anteriorly. HEART: Regular rate and rhythm S1, S2. No S3. No rub appreciated. ABDOMEN: Soft. No organomegaly. EXTREMITIES: No significant edema. LAB DATA: Lab data revealed a BUN and creatinine of 81, and 0.128, potassium 11.6. Her ALT 654, ALT of 944. IMPRESSION: 1. Large cerebrovascular accident. Neurologically unresponsive. 2. Acute respiratory failure. 3. Severe ischemic cardiomyopathy. 4. Peripheral vascular disease. 5. Shock liver. 6. Status post ICD implantation. 7. Coronary artery disease with coronary artery bypass grafting. RECOMMENDATION: From the cardiac standpoint, we will continue current therapy. Patient's prognosis is very poor. We will await the neurology input. VIC / JUAN MIGUEL: [id number] /
[2018-04-11 09:17] LABS: Glucose,Whole Blood 211 mg/dL (75-99)
[2018-04-11 10:17] LABS: Glucose,Whole Blood 193 mg/dL (75-99)
--- NOTE | 2018-04-11 10:53 | EEG ---
ELECTROENCEPHALOGRAM REPORT DATE OF SERVICE: 04/09/2018 REASON FOR TESTING: Altered mental status. DESCRIPTION OF THE PROCEDURE: This EEG was performed using a 21 channel digital electroencephalograph, following international 10-20 system. DESCRIPTION OF THE RECORDING: From the beginning of the tracing, the background rhythm was mostly consisting of 7 Hz theta frequency in the posterior occipital leads. Occasional slowing into the delta range is seen. Occasional muscle artifacts are noticed. Photic stimulation was performed with no driving response seen. No pathological waves were elicited. More muscle artifacts are seen later in the tracing. Hyperventilation was not performed. Her EKG lead showed a regular rate and rhythm. INTERPRETATION: This EEG is abnormal due to the presence of generalized slowing of the background rhythm, mostly in the theta range and occasionally into the delta range. This is consistent with moderate encephalopathy. No epileptiform discharges were seen. The absence of epileptiform discharges does not rule out the diagnosis of epilepsy; therefore clinical correlation is recommended. MMNEREIDA / IJN: [id number] /
[2018-04-11 11:06] LABS: Glucose,Whole Blood 169 mg/dL (75-99)
--- NOTE | 2018-04-11 11:09 | P.PN ---
Subjective Progress Note Date: 04/11/18 Principal diagnosis: Acute hypoxic respiratory failure requiring intubation and mechanical ventilation. This is a 73-year-old female with history of multiple medical problems including coronary artery disease, ischemic cardiomyopathy, peripheral vessel occlusive disease with bilateral carotid endarterectomy, CABG, subclavian stent placement and multiple peripheral stents placed in the past, patient obviously has severe vasculopathy. Severe peripheral vessel occlusive disease involving lower extremities. Previous AICD placement 4 severe ischemic cardiomyopathy. Patient was last admitted to [facility] about 3 months ago, at that time she was admitted with recurrent syncope and multiple falls secondary to recurrent syncope. Patient was seen by many consultants during the last admission, and she was eventually discharged home on 12/29/2017. During that admission the patient had tilt table test that showed orthostatic drop in blood pressure without any symptoms. Patient was placed on Florinef by cardiology. Last night the patient presented to the ER with altered mental status, and according to the family she was not acting appropriately, she was confused, and there was questionable right-sided weakness noted by EMS upon arrival. Workup in the ER included CT of the brain, CT of the abdomen and pelvis, chest x-ray, CT angiogram of the brain, EKG, workup was basically nondiagnostic except for the chest x-ray showing some evidence of pulmonary edema. Her liver enzymes were noted to be significantly elevated. With significantly elevated transaminases, and total bilirubin was 3.3. Her urinalysis showed evidence of pyuria and bacteriuria, and wild in the ER, just before transferring the patient to the ICU, patient deteriorated, and her respiration became agonal. Patient was intubated by the ER physician, and transferred to the ICU. I saw the patient in the ICU, presently sedated, on propofol at 30 mcg/kg/m, she is on mechanical ventilation with tidal volume of 400, assist control rate of 20 FiO2 45% and PEEP of 5. Her peak airway pressure is 28, and plateau pressure is 14. Patient is not responsive to any stimuli. Her pupils seem to be pinpoint. ABG post intubation showed it be O2 of 397 pCO2 of 31, pH of 7.5. Apparently the patient was developing significant metabolic acidosis, could be related to global hypoperfusion could also be related to sepsis, assuming the most likely source would be the urine. Her initial lactic acid was 7.6, follow- up lactic acid post fluid boluses of 2 L, came back down to 5.9. Patient was reevaluated today on 04/09/2018, remains on mechanical ventilation, and her ventilator settings are assist control rate of 16 but I cut it down to 14, tidal volume of 400, FiO2 45%, and PEEP is 5. Patient remains on Cardizem drip, and I have discontinued her bicarb drip. Remains on propofol at 50 mcg/kg /m. Patient remains unresponsive to any deep painful stimuli, even after stopping propofol, patient was noted to grimace only to deep painful stimuli. Labs were reviewed her ABG showed a pO2 of 113 pCO2 of 30 and pH of 7.60. Hence I discontinued sodium bicarb drip, and I adjusted the ventilator settings to a lower assist control rate of 14. Advised the nurses to hold propofol, and I would like to assess her mental status off propofol. Her pupils are pinpoint , hence I recommended a neurological evaluation on this patient. She may have sustained some encephalopathy/anoxic brain injury. Reevaluated today on 04/10/2018, patient remains in the ICU on mechanical ventilation, her ventilator settings are assist control rate of 12, tidal volume of 400, FiO2 of 45%, and PEEP of 5. Patient remains unresponsive to any painful stimuli. Pupils remained pinpoint. All her labs were reviewed including ABG, showed a pO2 of 99 pCO2 of 30 0 pH of 7.60 reflecting a picture of combined metabolic and respiratory alkalosis. Electrolytes are relatively normal potassium is 5.2. Profile is about the same with a BUN of [address] of the brain done yesterday showed evolving new acute right sided infarct involving frontal parietal region with occipital extension and new evolving smaller but moderate-sized acute infarct left frontal lobe. Neurology is aware of the findings, not recommending any treatment, did not recommend any anticoagulation therapy at this point yet. Chest x-ray this morning showed adequate placement of lines and catheters, small left pleural effusion is noted. Otherwise the chest x-ray is unremarkable. Patient was reevaluated today on 04/07/2018, remains on mechanical ventilation, her ventilator settings are unchanged. Patient is unresponsive to any stimuli. Her CT of the brain was reviewed, and family was made aware of the findings of the CT of the brain. As a matter of fact the family was also made aware of the overall prognostic picture, and at this point the patient remains DO NOT RESUSCITATE, we will likely consider terminal weaning, however the family is waiting for other family members to come out of state. The overall neurological picture is not promising, and patient remains unresponsive whatsoever. No ABG was done today. Her other labs were reviewed including her CBC and basic metabolic profile renal profile is a bit worse with a BUN of 81 creatinine of 1.28. Objective - Vital Signs Vital signs: Vital Signs Temp 98.6 F 04/11/18 08:00 Pulse 88 04/11/18 11:04 Resp 22 04/11/18 10:00 BP 104/71 04/11/18 10:00 Pulse Ox 97 04/11/18 10:00 Intake & Output 04/10/18 04/11/18 04/11/18 18:59 06:59 18:59 Intake Total 759.996 822.297 420.688 Output Total 415 900 315 Balance 344.996 -77.703 105.688 Weight 61.1 kg 62.6 kg Intake: IV 230 130 240 0.9 KVO 230 130 40 Magnesium Sulfate-D5w Pmx 200 1 gm In Dextrose/Water 1 100ml.bag @ 100 mls/hr IVPB Q1H NOE Rx#: [id number] Intake, IV Titration 39.996 147.297 25.688 Amount Insulin Regular 100 unit 39.996 47.297 25.688 In Sodium Chloride 0.9% 100 ml @ Per Protocol IV .Q0M NOE Rx#:[id number] Magnesium Sulfate-D5w Pmx 100 1 gm In Dextrose/Water 1 100ml.bag @ 100 mls/hr IVPB Q1H NOE Rx#: [id number] Tube Feeding 490 455 105 Other 90 50 Output: Urine 415 900 315 Other: Voiding Method Indwelling Catheter Indwelling Catheter Indwelling Catheter ABP, PAP, CO, CI - Last Documented Arterial Blood Pressure 71/62 - Exam Physical Exam: Revealed a 73-year-old female sedated, on mechanical ventilation , no responses noted to any deep painful stimuli. Head: Atraumatic, normocephalic. Dry mucous membranes noted. HEENT:[Neck is supple.] [No neck masses.] [No thyromegaly.] [No JVD.] Positive icterus. dry mucous membranes. Endotracheal tube and orogastric tube are intact. Chest: [Crackles and rhonchi noted bilaterally, symmetrical expansion, no chest wall tenderness. Cardiac Exam: [Normal S1 and S2, no S3 gallop, no murmur.] Abdomen: [Soft, nontender, no megaly, no rebound, no guarding, normal bowel sounds.] Extremities: [No clubbing, no edema, no cyanosis.] Diminished distal pulses bilaterally. Neurological Exam: Unresponsive to any deep painful stimuli, patient is not on any sedatives, has been off propofol since yesterday. Psychiatric: Unresponsive. Skin: No rashes. - Labs CBC & Chem 7: 04/11/18 04:17 04/11/18 04:17 Labs: Abnormal Lab Results - Last 24 Hours (Table) 04/10/18 04/10/18 04/10/18 Range/Units 12:10 13:05 14:05 WBC (3.8-10.6) k/uL MCV (80.0-100.0) fL MCH (25.0-35.0) pg Plt Count (150-450) k/uL Chloride (98-107) mmol/L BUN (7-17) mg/dL Creatinine (0.52-1.04) mg/dL Glucose (74-99) mg/dL POC Glucose (mg/dL) 195 H 189 H 209 H (75-99) mg/dL Total Bilirubin (0.2-1.3) mg/dL AST (14-36) U/L ALT (9-52) U/L Alkaline Phosphatase (38-126) U/L Total Protein (6.3-8.2) g/dL Albumin (3.5-5.0) g/dL 04/10/18 04/10/18 04/10/18 Range/Units 15:18 16:10 17:21 WBC (3.8-10.6) k/uL MCV (80.0-100.0) fL MCH (25.0-35.0) pg Plt Count (150-450) k/uL Chloride (98-107) mmol/L BUN (7-17) mg/dL Creatinine (0.52-1.04) mg/dL Glucose (74-99) mg/dL POC Glucose (mg/dL) 185 H 210 H 188 H (75-99) mg/dL Total Bilirubin (0.2-1.3) mg/dL AST (14-36) U/L ALT (9-52) U/L Alkaline Phosphatase (38-126) U/L Total Protein (6.3-8.2) g/dL Albumin (3.5-5.0) g/dL 04/10/18 04/10/18 04/10/18 Range/Units 18:04 19:31 20:08 WBC (3.8-10.6) k/uL MCV (80.0-100.0) fL MCH (25.0-35.0) pg Plt Count (150-450) k/uL Chloride (98-107) mmol/L BUN (7-17) mg/dL Creatinine (0.52-1.04) mg/dL Glucose (74-99) mg/dL POC Glucose (mg/dL) 200 H 175 H 190 H (75-99) mg/dL Total Bilirubin (0.2-1.3) mg/dL AST (14-36) U/L ALT (9-52) U/L Alkaline Phosphatase (38-126) U/L Total Protein (6.3-8.2) g/dL Albumin (3.5-5.0) g/dL 04/10/18 04/10/18 04/10/18 Range/Units 21:11 22:04 23:03 WBC (3.8-10.6) k/uL MCV (80.0-100.0) fL MCH (25.0-35.0) pg Plt Count (150-450) k/uL Chloride (98-107) mmol/L BUN (7-17) mg/dL Creatinine (0.52-1.04) mg/dL Glucose (74-99) mg/dL POC Glucose (mg/dL) 154 H 182 H 192 H (75-99) mg/dL Total Bilirubin (0.2-1.3) mg/dL AST (14-36) U/L ALT (9-52) U/L Alkaline Phosphatase (38-126) U/L Total Protein (6.3-8.2) g/dL Albumin (3.5-5.0) g/dL 04/11/18 04/11/18 04/11/18 Range/Units 00:02 01:04 02:08 WBC (3.8-10.6) k/uL MCV (80.0-100.0) fL MCH (25.0-35.0) pg Plt Count (150-450) k/uL Chloride (98-107) mmol/L BUN (7-17) mg/dL Creatinine (0.52-1.04) mg/dL Glucose (74-99) mg/dL POC Glucose (mg/dL) 214 H 217 H 220 H (75-99) mg/dL Total Bilirubin (0.2-1.3) mg/dL AST (14-36) U/L ALT (9-52) U/L Alkaline Phosphatase (38-126) U/L Total Protein (6.3-8.2) g/dL Albumin (3.5-5.0) g/dL 04/11/18 04/11/18 04/11/18 Range/Units 03:01 04:02 04:17 WBC 13.1 H (3.8-10.6) k/uL MCV 77.0 L (80.0-100.0) fL MCH 24.3 L (25.0-35.0) pg Plt Count 111 L (150-450) k/uL Chloride (98-107) mmol/L BUN (7-17) mg/dL Creatinine (0.52-1.04) mg/dL Glucose (74-99) mg/dL POC Glucose (mg/dL) 204 H 237 H (75-99) mg/dL Total Bilirubin (0.2-1.3) mg/dL AST (14-36) U/L ALT (9-52) U/L Alkaline Phosphatase (38-126) U/L Total Protein (6.3-8.2) g/dL Albumin (3.5-5.0) g/dL 04/11/18 04/11/18 04/11/18 Range/Units 04:17 05:06 06:11 WBC (3.8-10.6) k/uL MCV (80.0-100.0) fL MCH (25.0-35.0) pg Plt Count (150-450) k/uL Chloride 96 L (98-107) mmol/L BUN 81 H (7-17) mg/dL Creatinine 1.28 H (0.52-1.04) mg/dL Glucose 220 H (74-99) mg/dL POC Glucose (mg/dL) 235 H 202 H (75-99) mg/dL Total Bilirubin 1.6 H (0.2-1.3) mg/dL AST 654 H (14-36) U/L ALT 944 H (9-52) U/L Alkaline Phosphatase 229 H (38-126) U/L Total Protein 5.3 L (6.3-8.2) g/dL Albumin 2.7 L (3.5-5.0) g/dL 04/11/18 04/11/18 04/11/18 Range/Units 07:06 09:15 10:15 WBC (3.8-10.6) k/uL MCV (80.0-100.0) fL MCH (25.0-35.0) pg Plt Count (150-450) k/uL Chloride (98-107) mmol/L BUN (7-17) mg/dL Creatinine (0.52-1.04) mg/dL Glucose (74-99) mg/dL POC Glucose (mg/dL) 196 H 211 H 193 H (75-99) mg/dL Total Bilirubin (0.2-1.3) mg/dL AST (14-36) U/L ALT (9-52) U/L Alkaline Phosphatase (38-126) U/L Total Protein (6.3-8.2) g/dL Albumin (3.5-5.0) g/dL 04/11/18 Range/Units 11:05 WBC (3.8-10.6) k/uL MCV (80.0-100.0) fL MCH (25.0-35.0) pg Plt Count (150-450) k/uL Chloride (98-107) mmol/L BUN (7-17) mg/dL Creatinine (0.52-1.04) mg/dL Glucose (74-99) mg/dL POC Glucose (mg/dL) 169 H (75-99) mg/dL Total Bilirubin (0.2-1.3) mg/dL AST (14-36) U/L ALT (9-52) U/L Alkaline Phosphatase (38-126) U/L Total Protein (6.3-8.2) g/dL Albumin (3.5-5.0) g/dL Microbiology - Last 24 Hours (Table) 04/08/18 08:24 Blood Culture - Preliminary Blood No Growth after 72 hours 04/07/18 20:25 Blood Culture - Preliminary Blood No Growth after 72 hours 04/08/18 06:01 Gram Stain - Final Sputum Sputum Culture - Final Assessment and Plan Assessment: Impression: 1 acute hypoxic respiratory failure secondary to congestive heart failure, systolic in nature patient is known to have history of ischemic cardiomyopathy. And LV dysfunction. Chest x-ray today continues to show pulmonary venous congestion and possibly left-sided pleural effusion. 2 acute urinary tract infection, strongly suspect sepsis secondary to UTI. 3 acute shock liver with elevated transaminases most likely secondary to hypoperfusion. 4 coronary artery disease and previous CABG with stent placements and ischemic cardiomyopathy post-AICD. 5 severe peripheral artery disease and multiple endovascular placement of stents including aortic stent left iliac femoral-femoral bypass surgery and great saphenous vein at [facility]. 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 14 history of recurrent episodes of syncope secondary to orthostatic hypotension. 15 history of mixed hyperlipidemia. 16 acute CVA with significantly abnormal CT of the brain involving right hemisphere and left frontal lobe. Recommendation: Continue present supportive care measures, we will approach the family on a daily basis regarding her overall poor neurological picture and severe anoxic brain injury as well as the new findings on the CT of the brain. Quality of life would be the main concern, and I believe the family is very much inclined to consider terminal weaning and comfort care measures once other family members become available out of state. Prognosis remains extremely poor and guarded. Critical care time is 32 minutes Time with Patient: Greater than 30
[2018-04-11 13:02] LABS: Glucose,Whole Blood 149 mg/dL (75-99)
[2018-04-11 14:56] LABS: Glucose,Whole Blood 150 mg/dL (75-99)
[2018-04-11 16:18] LABS: Glucose,Whole Blood 149 mg/dL (75-99)
[2018-04-11 17:08] LABS: Glucose,Whole Blood 152 mg/dL (75-99)
[2018-04-11 18:00] LABS: Glucose,Whole Blood 149 mg/dL (75-99)
--- NOTE | 2018-04-11 18:38 | P.PN ---
Subjective Progress Note Date: 04/11/18 This is a 73-year-old female one of Dr. Latha Amezcua with a previous medical history significant for coronary artery disease status post coronary artery bypass graft with ischemic cardio myopathy and percutaneous coronary intervention and a total of 4 stents placement last one was put in the LAD back in November 2014, AICD placement, cardiomyopathy EF 43%, CABG with ischemic heart disease, patent HA, saphenous vein graft to RCA, 100% occluded circumflex with collaterals, recent echocardiogram revealed echo 20-25% with severe global hypokinesia, moderate MR, moderate pulmonary hypertension October 2017 echocardiogram.history of left subclavian stenosis status post stenting, carotid artery disease status post bilateral carotid endarterectomies, severe peripheral arterial occlusive disease, vasculitis , severe PAD with recent endovascular placement of aortic stent for occlusive disease of the aorta, left iliac stent, fem-fem bypass with greater saphenous vein at [facility]. Goldie at [facility], her arterial ulcers in the legs have since then resolved after vascular intervention. She has a tilt table positive test with drop on systolic blood pressure, required florinef Patient complained of early satiety, bloating, weight loss, was seen in the office and was prescribed Reglan, no antibiotic was given, patient now comes in with increasing fatigue, started getting around the house, altered mentation, no melena hematochezia, no diarrhea, has chills, she comes in septic, she got into respiratory failure, 4 hours after initial ER evaluation, requiring intubation. In the emergency room. Her liver function tests in December were normal, however on presentation, ammonia was 9 troponin 0.2 lactic acid 5.2 BUN 43 creatinine 0.9 bilirubin 2.5 AST 3607 ALT 2075, the basic count 10.2 INR 2.4 patient is not on any anticoagulation at home urinalysis shows significant pyuria of 81 with many WBC clumping noted cloudy urine specific gravity of 1.043 , urine drug screen negative.. CAT scan of the abdomen shows moderate L3-L4 bony spinal stenosis, sigmoid diverticulosis without diverticulitis, mild ascites, decreased density lower lobe right kidney related to renal ischemia and no evidence of renal mass patchy atelectasis lung bases prior cholecystectomy no mesenteric edema Patient currently is in ICU, sedated, mechanical ventilation tidal volume 400 assist control 20 FiO2 45% with PEEP of 5 patient is not responsive to any stimuli, follows in the ICU by multiple specialists including loan services professional Dr. Madrid, cardiology, GI, services 04/09: Patient continues to be in ICU, sedated, mechanical ventilation tidal volume 400 assist control 20, FiO2 45% with a PEEP of 5. Patient is not responsive to any stimuli. Liver enzymes are improving. Patient continues to be intubated and sedated. There was noted hemiparesis of the left arm which is new. Hemoglobin is 10.1, platelets 129 INR 2.3, ABG pH 7.6, potassium 2.9, chloride 97 BUN 46 creatinine 1.13, AST 2107, ALT 1471, alkaline phosphatase 178. Urinary output 50-70 mL per hour. 04/10- CAT scan of the brain shows a new acute large right-sided infarct involving frontoparietal region with occipital extension. New evolving smaller but moderate-sized acute infarct left frontal lobe. Chest x-ray shows small left pleural effusion. Multiple family members are at the bedside. Patient has been made DO NOT RESUSCITATE. Patient has been off propofol for 24 hours and is unresponsive. They have a family member driving from [place] and son coming from [facility] and they are planning to make her comfort care only at that time. 04/11: Results of CAT scan of the brain discussed with family. Family is waiting for family members to come from out of state to see patient prior to terminal wean. discussed that potentially terminal wean will occur Friday evening or Friday morning once family arrives. We will continue to make patient comfortable at this time. Questions answered. Review Of Systems: Unable to be obtained as patient is intubated Objective - Vital Signs Vital signs: Vital Signs Temp 97.8 F 04/11/18 16:00 Pulse 83 04/11/18 18:00 Resp 21 04/11/18 18:00 BP 97/78 04/11/18 18:00 Pulse Ox 97 04/11/18 18:00 Intake & Output 04/10/18 04/11/18 04/11/18 18:59 06:59 18:59 Intake Total 759.996 822.297 847.639 Output Total 415 900 815 Balance 344.996 -77.703 32.639 Weight 61.1 kg 62.6 kg Intake: IV 230 130 320 0.9 KVO 230 130 120 Magnesium Sulfate-D5w Pmx 200 1 gm In Dextrose/Water 1 100ml.bag @ 100 mls/hr IVPB Q1H NOE Rx#: [id number] Intake, IV Titration 39.996 147.297 37.639 Amount Insulin Regular 100 unit 39.996 47.297 37.639 In Sodium Chloride 0.9% 100 ml @ Per Protocol IV .Q0M ONE Rx#:[id number] Magnesium Sulfate-D5w Pmx 100 1 gm In Dextrose/Water 1 100ml.bag @ 100 mls/hr IVPB Q1H NOE Rx#: [id number] Tube Feeding 490 455 350 Other 90 140 Output: Urine 415 900 815 Other: Voiding Method Indwelling Catheter Indwelling Catheter Indwelling Catheter ABP, PAP, CO, CI - Last Documented Arterial Blood Pressure 71/62 - Constitutional Constitutional Comment(s): Patient appears comfortable General appearance: Present: average body habitus, no acute distress - EENT Eyes: Present: abnormal pupil ([place]) - Neck Neck: Absent: lymphadenopathy - Respiratory Respiratory: bilateral: CTA, negative: diminished, dullness, rales, rhonchi, wheezing - Cardiovascular Rhythm: regular Heart sounds: normal: S1, S2 Abnormal Heart Sounds: Present: systolic murmur - Gastrointestinal General gastrointestinal: Present: decreased bowel sounds, soft - Integumentary Integumentary: Present: decreased turgor, pale - Neurologic Neurologic Comment(s): Negative babinski sign, no response to painful stimuli - Musculoskeletal Musculoskeletal Comment(s): No response to painful stimuli - Labs CBC & Chem 7: 04/11/18 04:17 04/11/18 04:17 Labs: Abnormal Lab Results - Last 24 Hours (Table) 04/10/18 04/10/18 04/10/18 Range/Units 19:31 20:08 21:11 WBC (3.8-10.6) k/uL MCV (80.0-100.0) fL MCH (25.0-35.0) pg Plt Count (150-450) k/uL Chloride (98-107) mmol/L BUN (7-17) mg/dL Creatinine (0.52-1.04) mg/dL Glucose (74-99) mg/dL POC Glucose (mg/dL) 175 H 190 H 154 H (75-99) mg/dL Total Bilirubin (0.2-1.3) mg/dL AST (14-36) U/L ALT (9-52) U/L Alkaline Phosphatase (38-126) U/L Total Protein (6.3-8.2) g/dL Albumin (3.5-5.0) g/dL 04/10/18 04/10/18 04/11/18 Range/Units 22:04 23:03 00:02 WBC (3.8-10.6) k/uL MCV (80.0-100.0) fL MCH (25.0-35.0) pg Plt Count (150-450) k/uL Chloride (98-107) mmol/L BUN (7-17) mg/dL Creatinine (0.52-1.04) mg/dL Glucose (74-99) mg/dL POC Glucose (mg/dL) 182 H 192 H 214 H (75-99) mg/dL Total Bilirubin (0.2-1.3) mg/dL AST (14-36) U/L ALT (9-52) U/L Alkaline Phosphatase (38-126) U/L Total Protein (6.3-8.2) g/dL Albumin (3.5-5.0) g/dL 04/11/18 04/11/18 04/11/18 Range/Units 01:04 02:08 03:01 WBC (3.8-10.6) k/uL MCV (80.0-100.0) fL MCH (25.0-35.0) pg Plt Count (150-450) k/uL Chloride (98-107) mmol/L BUN (7-17) mg/dL Creatinine (0.52-1.04) mg/dL Glucose (74-99) mg/dL POC Glucose (mg/dL) 217 H 220 H 204 H (75-99) mg/dL Total Bilirubin (0.2-1.3) mg/dL AST (14-36) U/L ALT (9-52) U/L Alkaline Phosphatase (38-126) U/L Total Protein (6.3-8.2) g/dL Albumin (3.5-5.0) g/dL 04/11/18 04/11/18 04/11/18 Range/Units 04:02 04:17 04:17 WBC 13.1 H (3.8-10.6) k/uL MCV 77.0 L (80.0-100.0) fL MCH 24.3 L (25.0-35.0) pg Plt Count 111 L (150-450) k/uL Chloride 96 L (98-107) mmol/L BUN 81 H (7-17) mg/dL Creatinine 1.28 H (0.52-1.04) mg/dL Glucose 220 H (74-99) mg/dL POC Glucose (mg/dL) 237 H (75-99) mg/dL Total Bilirubin 1.6 H (0.2-1.3) mg/dL AST 654 H (14-36) U/L ALT 944 H (9-52) U/L Alkaline Phosphatase 229 H (38-126) U/L Total Protein 5.3 L (6.3-8.2) g/dL Albumin 2.7 L (3.5-5.0) g/dL 04/11/18 04/11/18 04/11/18 Range/Units 05:06 06:11 07:06 WBC (3.8-10.6) k/uL MCV (80.0-100.0) fL MCH (25.0-35.0) pg Plt Count (150-450) k/uL Chloride (98-107) mmol/L BUN (7-17) mg/dL Creatinine (0.52-1.04) mg/dL Glucose (74-99) mg/dL POC Glucose (mg/dL) 235 H 202 H 196 H (75-99) mg/dL Total Bilirubin (0.2-1.3) mg/dL AST (14-36) U/L ALT (9-52) U/L Alkaline Phosphatase (38-126) U/L Total Protein (6.3-8.2) g/dL Albumin (3.5-5.0) g/dL 04/11/18 04/11/18 04/11/18 Range/Units 09:15 10:15 11:05 WBC (3.8-10.6) k/uL MCV (80.0-100.0) fL MCH (25.0-35.0) pg Plt Count (150-450) k/uL Chloride (98-107) mmol/L BUN (7-17) mg/dL Creatinine (0.52-1.04) mg/dL Glucose (74-99) mg/dL POC Glucose (mg/dL) 211 H 193 H 169 H (75-99) mg/dL Total Bilirubin (0.2-1.3) mg/dL AST (14-36) U/L ALT (9-52) U/L Alkaline Phosphatase (38-126) U/L Total Protein (6.3-8.2) g/dL Albumin (3.5-5.0) g/dL 04/11/18 04/11/18 04/11/18 Range/Units 13:00 14:53 16:16 WBC (3.8-10.6) k/uL MCV (80.0-100.0) fL MCH (25.0-35.0) pg Plt Count (150-450) k/uL Chloride (98-107) mmol/L BUN (7-17) mg/dL Creatinine (0.52-1.04) mg/dL Glucose (74-99) mg/dL POC Glucose (mg/dL) 149 H 150 H 149 H (75-99) mg/dL Total Bilirubin (0.2-1.3) mg/dL AST (14-36) U/L ALT (9-52) U/L Alkaline Phosphatase (38-126) U/L Total Protein (6.3-8.2) g/dL Albumin (3.5-5.0) g/dL 04/11/18 04/11/18 Range/Units 17:06 17:59 WBC (3.8-10.6) k/uL MCV (80.0-100.0) fL MCH (25.0-35.0) pg Plt Count (150-450) k/uL Chloride (98-107) mmol/L BUN (7-17) mg/dL Creatinine (0.52-1.04) mg/dL Glucose (74-99) mg/dL POC Glucose (mg/dL) 152 H 149 H (75-99) mg/dL Total Bilirubin (0.2-1.3) mg/dL AST (14-36) U/L ALT (9-52) U/L Alkaline Phosphatase (38-126) U/L Total Protein (6.3-8.2) g/dL Albumin (3.5-5.0) g/dL Microbiology - Last 24 Hours (Table) 04/08/18 08:24 Blood Culture - Preliminary Blood No Growth after 72 hours 04/07/18 20:25 Blood Culture - Preliminary Blood No Growth after 72 hours Assessment and Plan Plan: 1. Sepsis with altered organ failure including acute hypoxemic respiratory failure, shock liver, hypoperfusion related to sepsis, lactic acidosis urinary tract infection seems to be the primary source, patient was in consultation by multiple specialists including critical care medicine, neurology, Rocephin 1 g daily IV, pancultures obtained. To be terminally weaned 2. Congestive heart failure, Lasix IV 80 mg every 12 hours Acute on chronic CK D stage II, monitor for renal hypoperfusion related to hypovolemia, maintain fluid resuscitation, 3. Elevated troponin most likely secondary to septic shock, cardiology is consulted, echocardiogram borderline concentric left ventricular hypertrophy. Overall ventricular systolic function is severely impaired with an EF of less than 20% 4. CAD post CABGand stent placements with ischemic cardiopathy post AICD. continue risk modifications,beta blockers would be continued with parameters on holding metoprolol, lisinopril and Imdur is on hold. 5. Acute liver failure possibly secondary to septic shock against passive CHF, patient also has underlying coagulopathy, patient has had also weight loss for the past few months, other labs include JAMMIE, and CA 19 CEA AFP, GI is on consult. Prior history of cholecystectomy, hepatitis panel reviewed 6. Severe PAD post evaluation by vascular surgery status post recent endovascular placement of aortic stent for occlusive disease of the aorta, left iliac stent, and fem-fem bypass with great saphenous vein at [facility]. Continue Pletal 100 mg orally twice every day. 7. Carotid artery disease status post carotid endarterectomies. Continue aspirin 81 mg daily and Plavix 75 mg daily as a liver enzymes show improvement. We will restart once stable following: Lipitor for secondary prevention. 8. Ucontrolled diabetes mellitus type 2 with PVD complications, neuropathy, currently on insulin correctional scale while nothing by mouth on a vent. home meds was on Lantus 10 units daily NovoLog scale with 4 units pre-meal 3 times a day, on trulicity. along with the Humalog per sliding scale. Continue BGM before each meal and bedtime. 7. Hypertension and hypertensive cardio vascular disease. lisinopril on hold secondary to hypotension, Imdur and hold, metoprolol will be held based on systolic blood pressure less than 100 IV Cardizem per cardiology 8. Hyperlipidemia. Hold patient on Lipitor 80 mg orally once every day. Dietary acute liver failure 9. History of left subclavian stenosis. Post stenting. Stable at this time. 10. History of GERD. IV Protonix daily is on Prevacid daily 11. Vitamin D deficiency. Hold patient on vitamin D 1000 units once every day. 12. Depression. Continue Cymbalta 60 mg orally once every day. 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 Gabapentin 100 mg 3 times a day 14. 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 15 History of left subclavianstenosis status post stenting 16 spinal stenosis L3-L4, L4-L5, severe R L3-L4 area with moderate severe spinal stenosis posterior disc bulging with facet arthropathy, based on CAT scan 09/20/2017physical therapy, might need consult with Dr. Crocker DVT prophylaxis. GI prophylaxis. Continue PPI. 15. Admit to inpatient. Estimated length of stay 2 midnights. 16. Patient is full code. 17. Autonomic dysfunction Recurrent falls, physical therapy and occupational therapy to see the patient when stabilized 18. Hemiparesis left arm, CT of the brain without contrast. Impression and plan of care have been directed as dictated by the signing physician. Oly Reed nurse practitioner acting as scribe for signing physician.
[2018-04-11 18:56] LABS: Glucose,Whole Blood 165 mg/dL (75-99)
[2018-04-11 19:57] LABS: Glucose,Whole Blood 167 mg/dL (75-99)
[2018-04-11 21:16] LABS: Glucose,Whole Blood 155 mg/dL (75-99)
[2018-04-11 21:54] LABS: Glucose,Whole Blood 179 mg/dL (75-99)
[2018-04-11 23:06] LABS: Glucose,Whole Blood 162 mg/dL (75-99)
[2018-04-11 23:44] LABS: Glucose,Whole Blood 181 mg/dL (75-99)
[2018-04-12 01:01] LABS: Glucose,Whole Blood 182 mg/dL (75-99)
[2018-04-12] MEDS: DEXTROSE 5% IN WATER 1,000 ML with SODIUM BICARB (1 MEQ/ML) 150 ML IV SCH (01:50)
[2018-04-12 02:26] LABS: Glucose,Whole Blood 162 mg/dL (75-99)
[2018-04-12 03:07] LABS: Glucose,Whole Blood 170 mg/dL (75-99)
[2018-04-12] MEDS: IPRATROPIUM-ALBUTEROL 3 ML NEB INHALATION SCH ×6 (03:51→23:42)
[2018-04-12 04:04] LABS: Glucose,Whole Blood 166 mg/dL (75-99)
[2018-04-12] MEDS: DEXAMETHASONE SOD PHOSPHATE 4 MG/ML 1 ML VIAL IV SCH ×3 (04:29→20:57)
[2018-04-12 04:57] LABS: Glucose,Whole Blood 159 mg/dL (75-99)
[2018-04-12 05:02] LABS: Albumin 2.6 g/dL (3.5-5.0); Calcium 8.6 mg/dL (8.4-10.2); Magnesium 2.1 mg/dL (1.6-2.3); Phosphorus 4.1 mg/dL (2.5-4.5); Potassium 4.4 mmol/L (3.5-5.1); Total Bilirubin 1.5 mg/dL (0.2-1.3); Total Protein 5.2 g/dL (6.3-8.2)
[2018-04-12 05:09] LABS: HCT 36.8 % (34.0-46.0); HGB 11.4 gm/dL (11.4-16.0); Hypochromasia Marked; MCH 24.6 pg (25.0-35.0); MCV 79.5 fL (80.0-100.0); Mean Platelet Volume 10.1; Poikilocytosis Slight; RBC 4.63 m/uL (3.80-5.40); RDW 15.1 % (11.5-15.5); WBC 12.6 k/uL (3.8-10.6)
[2018-04-12 05:12] LABS: Platelet Count 95 k/uL (150-450)
[2018-04-12 05:53] LABS: Glucose,Whole Blood 156 mg/dL (75-99)
--- NOTE | 2018-04-12 07:25 | XR ---
EXAMINATION TYPE: XR chest 1V portable DATE OF EXAM: 04/12/2018 COMPARISON: 04/11/2018 HISTORY: SOB, Follow Up FINDINGS: Indwelling tubes and catheters are unchanged. No change in bibasilar opacities. Stable appearance of the cardio-mediastinal structures at this time. IMPRESSION: 1. Stable portable chest. Clinical correlation and follow up until resolution is recommended.
[2018-04-12 08:18] LABS: Glucose,Whole Blood 207 mg/dL (75-99)
[2018-04-12] MEDS: METOPROLOL TARTRATE 25 MG TAB PO SCH ×4 (08:26→20:58)
[2018-04-12] MEDS: CHLORHEXIDINE GLUCONATE 15 ML CUP MUCOUS MEM SCH ×2 (08:26→20:58)
[2018-04-12] MEDS: ENOXAPARIN 30 MG/0.3 ML SYRINGE SQ SCH (08:26)
[2018-04-12] MEDS: ASPIRIN 81 MG PO SCH (08:26)
[2018-04-12] MEDS: GABAPENTIN 100 MG CAP PO SCH ×3 (08:27→17:16)
[2018-04-12] MEDS: DULoxetine HCL 60 MG CAPSULE.DR PO SCH (08:27)
[2018-04-12] MEDS: PANTOPRAZOLE 40 MG/10 ML VIAL IVP SCH (08:27)
[2018-04-12] MEDS: CLOPIDOGREL 75 MG TAB PO SCH (08:27)
[2018-04-12] MEDS: FUROSEMIDE 10 MG/ML 10 ML VIAL IV SCH (08:27)
--- NOTE | 2018-04-12 09:45 | PN ---
PROGRESS NOTE Mrs. Colon is a 73-year-old female who has a history of coronary artery disease, ischemic cardiomyopathy, peripheral vascular disease who had respiratory failure and was found to have a large cerebrovascular accident. She remains intubated, unresponsive. Awaiting the input of the family regarding her long-term treatment and her code status. There is no new changes from the cardiac standpoint. Her blood pressure has been stable. She has no evidence of bradycardia or tachycardia. She continues to be on Plavix 75 mg daily, aspirin 81 mg daily, Lasix 80 mg twice a day, IV metoprolol tartrate 25 mg 4 times a day. PHYSICAL EXAMINATION: Blood pressure 115/60 with a heart in 90s. LUNGS: Clear anteriorly. HEART: Regular rate and rhythm S1, S2. No S3. No rub appreciated. ABDOMEN: Soft. Positive bowel sounds. No organomegaly. EXTREMITIES: No significant edema. IMPRESSION: 1. Respiratory failure. 2. Cerebrovascular accident. Neurological unresponsive. 3. Severe ischemic cardiomyopathy. 4. Peripheral vascular disease. 5. Status post ICD implantation. 6. Status post coronary artery bypass grafting. RECOMMENDATION: From the cardiac standpoint, the prognosis remains quite poor. We will await family decision regarding further course of treatment. From the cardiac standpoint, there is no changes. MMODL / IJN: [id number] /
[2018-04-12 10:07] LABS: Glucose,Whole Blood 171 mg/dL (75-99)
[2018-04-12 11:08] LABS: Glucose,Whole Blood 168 mg/dL (75-99)
[2018-04-12 12:20] LABS: Glucose,Whole Blood 157 mg/dL (75-99)
[2018-04-12 13:04] LABS: Glucose,Whole Blood 163 mg/dL (75-99)
--- NOTE | 2018-04-12 13:41 | P.PN ---
Subjective Progress Note Date: 04/12/18 Principal diagnosis: Acute hypoxic respiratory failure requiring intubation and mechanical ventilation. This is a 73-year-old female with history of multiple medical problems including coronary artery disease, ischemic cardiomyopathy, peripheral vessel occlusive disease with bilateral carotid endarterectomy, CABG, subclavian stent placement and multiple peripheral stents placed in the past, patient obviously has severe vasculopathy. Severe peripheral vessel occlusive disease involving lower extremities. Previous AICD placement 4 severe ischemic cardiomyopathy. Patient was last admitted to [facility] about 3 months ago, at that time she was admitted with recurrent syncope and multiple falls secondary to recurrent syncope. Patient was seen by many consultants during the last admission, and she was eventually discharged home on 12/29/2017. During that admission the patient had tilt table test that showed orthostatic drop in blood pressure without any symptoms. Patient was placed on Florinef by cardiology. Last night the patient presented to the ER with altered mental status, and according to the family she was not acting appropriately, she was confused, and there was questionable right-sided weakness noted by EMS upon arrival. Workup in the ER included CT of the brain, CT of the abdomen and pelvis, chest x-ray, CT angiogram of the brain, EKG, workup was basically nondiagnostic except for the chest x-ray showing some evidence of pulmonary edema. Her liver enzymes were noted to be significantly elevated. With significantly elevated transaminases, and total bilirubin was 3.3. Her urinalysis showed evidence of pyuria and bacteriuria, and wild in the ER, just before transferring the patient to the ICU, patient deteriorated, and her respiration became agonal. Patient was intubated by the ER physician, and transferred to the ICU. I saw the patient in the ICU, presently sedated, on propofol at 30 mcg/kg/m, she is on mechanical ventilation with tidal volume of 400, assist control rate of 20 FiO2 45% and PEEP of 5. Her peak airway pressure is 28, and plateau pressure is 14. Patient is not responsive to any stimuli. Her pupils seem to be pinpoint. ABG post intubation showed it be O2 of 397 pCO2 of 31, pH of 7.5. Apparently the patient was developing significant metabolic acidosis, could be related to global hypoperfusion could also be related to sepsis, assuming the most likely source would be the urine. Her initial lactic acid was 7.6, follow- up lactic acid post fluid boluses of 2 L, came back down to 5.9. Patient was reevaluated today on 04/09/2018, remains on mechanical ventilation, and her ventilator settings are assist control rate of 16 but I cut it down to 14, tidal volume of 400, FiO2 45%, and PEEP is 5. Patient remains on Cardizem drip, and I have discontinued her bicarb drip. Remains on propofol at 50 mcg/kg /m. Patient remains unresponsive to any deep painful stimuli, even after stopping propofol, patient was noted to grimace only to deep painful stimuli. Labs were reviewed her ABG showed a pO2 of 113 pCO2 of 30 and pH of 7.60. Hence I discontinued sodium bicarb drip, and I adjusted the ventilator settings to a lower assist control rate of 14. Advised the nurses to hold propofol, and I would like to assess her mental status off propofol. Her pupils are pinpoint , hence I recommended a neurological evaluation on this patient. She may have sustained some encephalopathy/anoxic brain injury. Reevaluated today on 04/10/2018, patient remains in the ICU on mechanical ventilation, her ventilator settings are assist control rate of 12, tidal volume of 400, FiO2 of 45%, and PEEP of 5. Patient remains unresponsive to any painful stimuli. Pupils remained pinpoint. All her labs were reviewed including ABG, showed a pO2 of 99 pCO2 of 30 0 pH of 7.60 reflecting a picture of combined metabolic and respiratory alkalosis. Electrolytes are relatively normal potassium is 5.2. Profile is about the same with a BUN of [address] of the brain done yesterday showed evolving new acute right sided infarct involving frontal parietal region with occipital extension and new evolving smaller but moderate-sized acute infarct left frontal lobe. Neurology is aware of the findings, not recommending any treatment, did not recommend any anticoagulation therapy at this point yet. Chest x-ray this morning showed adequate placement of lines and catheters, small left pleural effusion is noted. Otherwise the chest x-ray is unremarkable. Patient was reevaluated today on 04/11/2018, remains on mechanical ventilation, her ventilator settings are unchanged. Patient is unresponsive to any stimuli. Her CT of the brain was reviewed, and family was made aware of the findings of the CT of the brain. As a matter of fact the family was also made aware of the overall prognostic picture, and at this point the patient remains DO NOT RESUSCITATE, we will likely consider terminal weaning, however the family is waiting for other family members to come out of state. The overall neurological picture is not promising, and patient remains unresponsive whatsoever. No ABG was done today. Her other labs were reviewed including her CBC and basic metabolic profile renal profile is a bit worse with a BUN of 81 creatinine of 1.28. Reevaluated today on 04/12/2018, patient is basically about the same. Remains on mechanical ventilation, ventilator settings are basically the same, not requiring any sedatives, not requiring any norepinephrine. Patient remains unresponsive to deep painful stimuli, at times may open eyes with deep painful stimuli. Patient is overriding the ventilatory septic rate. Breathing about 26 /m. WBC count is 12.6 hemoglobin is 11.4 no ABG done today. Lites are normal BUN is 101 creatinine is 1.15. Hence we'll increase her IV fluids since the picture seems to be more of a prerenal picture. I have also discontinued the sodium bicarb drip, and will place the patient on 0.9 normal saline at 75 mL per hour. Patient remains on Decadron 4 mg IV push every 8 hours as ordered by neurology. Objective - Vital Signs Vital signs: Vital Signs Temp 97.7 F 04/12/18 12:00 Pulse 101 H 04/12/18 13:00 Resp 22 04/12/18 13:00 BP 82/61 04/12/18 13:00 Pulse Ox 97 04/12/18 13:00 Intake & Output 04/11/18 04/12/18 04/12/18 18:59 06:59 18:59 Intake Total 913.466 535.268 450.633 Output Total 865 1035 905 Balance 48.466 -499.732 -454.367 Weight 59.5 kg Intake: IV 330 110 70 0.9 KVO 130 110 70 Magnesium Sulfate-D5w Pmx 200 1 gm In Dextrose/Water 1 100ml.bag @ 100 mls/hr IVPB Q1H NOE Rx#: [id number] Intake, IV Titration 58.466 45.268 35.633 Amount Insulin Regular 100 unit 58.466 45.268 35.633 In Sodium Chloride 0.9% 100 ml @ Per Protocol IV .Q0M NOE Rx#:[id number] Tube Feeding 385 350 245 Other 140 30 100 Output: Urine 865 1035 905 Other: Voiding Method Indwelling Catheter Indwelling Catheter Indwelling Catheter ABP, PAP, CO, CI - Last Documented Arterial Blood Pressure 71/62 - Exam Physical Exam: Revealed a 73-year-old female sedated, on mechanical ventilation , no responses noted to any deep painful stimuli. Head: Atraumatic, normocephalic. Dry mucous membranes noted. HEENT:[Neck is supple.] [No neck masses.] [No thyromegaly.] [No JVD.] Positive icterus. dry mucous membranes. Endotracheal tube and orogastric tube are intact. Chest: [Crackles and rhonchi noted bilaterally, symmetrical expansion, no chest wall tenderness. Cardiac Exam: [Normal S1 and S2, no S3 gallop, no murmur.] Abdomen: [Soft, nontender, no megaly, no rebound, no guarding, normal bowel sounds.] Extremities: [No clubbing, no edema, no cyanosis.] Diminished distal pulses bilaterally. Neurological Exam: Unresponsive to any deep painful stimuli, patient is off propofol. Psychiatric: Unresponsive. Skin: No rashes. - Labs CBC & Chem 7: 04/12/18 04:33 04/12/18 04:33 Labs: Abnormal Lab Results - Last 24 Hours (Table) 04/11/18 04/11/18 04/11/18 Range/Units 14:53 16:16 17:06 WBC (3.8-10.6) k/uL MCV (80.0-100.0) fL MCH (25.0-35.0) pg Plt Count (150-450) k/uL Chloride (98-107) mmol/L Carbon Dioxide (22-30) mmol/L BUN (7-17) mg/dL Creatinine (0.52-1.04) mg/dL Glucose (74-99) mg/dL POC Glucose (mg/dL) 150 H 149 H 152 H (75-99) mg/dL Total Bilirubin (0.2-1.3) mg/dL AST (14-36) U/L ALT (9-52) U/L Alkaline Phosphatase (38-126) U/L Total Protein (6.3-8.2) g/dL Albumin (3.5-5.0) g/dL 04/11/18 04/11/18 04/11/18 Range/Units 17:59 18:54 19:55 WBC (3.8-10.6) k/uL MCV (80.0-100.0) fL MCH (25.0-35.0) pg Plt Count (150-450) k/uL Chloride (98-107) mmol/L Carbon Dioxide (22-30) mmol/L BUN (7-17) mg/dL Creatinine (0.52-1.04) mg/dL Glucose (74-99) mg/dL POC Glucose (mg/dL) 149 H 165 H 167 H (75-99) mg/dL Total Bilirubin (0.2-1.3) mg/dL AST (14-36) U/L ALT (9-52) U/L Alkaline Phosphatase (38-126) U/L Total Protein (6.3-8.2) g/dL Albumin (3.5-5.0) g/dL 04/11/18 04/11/18 04/11/18 Range/Units 21:15 21:53 23:03 WBC (3.8-10.6) k/uL MCV (80.0-100.0) fL MCH (25.0-35.0) pg Plt Count (150-450) k/uL Chloride (98-107) mmol/L Carbon Dioxide (22-30) mmol/L BUN (7-17) mg/dL Creatinine (0.52-1.04) mg/dL Glucose (74-99) mg/dL POC Glucose (mg/dL) 155 H 179 H 162 H (75-99) mg/dL Total Bilirubin (0.2-1.3) mg/dL AST (14-36) U/L ALT (9-52) U/L Alkaline Phosphatase (38-126) U/L Total Protein (6.3-8.2) g/dL Albumin (3.5-5.0) g/dL 04/11/18 04/12/18 04/12/18 Range/Units 23:42 01:00 02:25 WBC (3.8-10.6) k/uL MCV (80.0-100.0) fL MCH (25.0-35.0) pg Plt Count (150-450) k/uL Chloride (98-107) mmol/L Carbon Dioxide (22-30) mmol/L BUN (7-17) mg/dL Creatinine (0.52-1.04) mg/dL Glucose (74-99) mg/dL POC Glucose (mg/dL) 181 H 182 H 162 H (75-99) mg/dL Total Bilirubin (0.2-1.3) mg/dL AST (14-36) U/L ALT (9-52) U/L Alkaline Phosphatase (38-126) U/L Total Protein (6.3-8.2) g/dL Albumin (3.5-5.0) g/dL 04/12/18 04/12/18 04/12/18 Range/Units 03:06 04:02 04:33 WBC 12.6 H (3.8-10.6) k/uL MCV 79.5 L (80.0-100.0) fL MCH 24.6 L (25.0-35.0) pg Plt Count 95 L (150-450) k/uL Chloride (98-107) mmol/L Carbon Dioxide (22-30) mmol/L BUN (7-17) mg/dL Creatinine (0.52-1.04) mg/dL Glucose (74-99) mg/dL POC Glucose (mg/dL) 170 H 166 H (75-99) mg/dL Total Bilirubin (0.2-1.3) mg/dL AST (14-36) U/L ALT (9-52) U/L Alkaline Phosphatase (38-126) U/L Total Protein (6.3-8.2) g/dL Albumin (3.5-5.0) g/dL 04/12/18 04/12/18 04/12/18 Range/Units 04:33 04:55 05:52 WBC (3.8-10.6) k/uL MCV (80.0-100.0) fL MCH (25.0-35.0) pg Plt Count (150-450) k/uL Chloride 97 L (98-107) mmol/L Carbon Dioxide 33 H (22-30) mmol/L BUN 101 H* (7-17) mg/dL Creatinine 1.15 H (0.52-1.04) mg/dL Glucose 158 H (74-99) mg/dL POC Glucose (mg/dL) 159 H 156 H (75-99) mg/dL Total Bilirubin 1.5 H (0.2-1.3) mg/dL AST 248 H (14-36) U/L ALT 637 H (9-52) U/L Alkaline Phosphatase 175 H (38-126) U/L Total Protein 5.2 L (6.3-8.2) g/dL Albumin 2.6 L (3.5-5.0) g/dL 04/12/18 04/12/18 04/12/18 Range/Units 08:16 10:06 11:06 WBC (3.8-10.6) k/uL MCV (80.0-100.0) fL MCH (25.0-35.0) pg Plt Count (150-450) k/uL Chloride (98-107) mmol/L Carbon Dioxide (22-30) mmol/L BUN (7-17) mg/dL Creatinine (0.52-1.04) mg/dL Glucose (74-99) mg/dL POC Glucose (mg/dL) 207 H 171 H 168 H (75-99) mg/dL Total Bilirubin (0.2-1.3) mg/dL AST (14-36) U/L ALT (9-52) U/L Alkaline Phosphatase (38-126) U/L Total Protein (6.3-8.2) g/dL Albumin (3.5-5.0) g/dL 04/12/18 04/12/18 Range/Units 12:19 13:03 WBC (3.8-10.6) k/uL MCV (80.0-100.0) fL MCH (25.0-35.0) pg Plt Count (150-450) k/uL Chloride (98-107) mmol/L Carbon Dioxide (22-30) mmol/L BUN (7-17) mg/dL Creatinine (0.52-1.04) mg/dL Glucose (74-99) mg/dL POC Glucose (mg/dL) 157 H 163 H (75-99) mg/dL Total Bilirubin (0.2-1.3) mg/dL AST (14-36) U/L ALT (9-52) U/L Alkaline Phosphatase (38-126) U/L Total Protein (6.3-8.2) g/dL Albumin (3.5-5.0) g/dL Microbiology - Last 24 Hours (Table) 11/21/18 08:24 Blood Culture - Preliminary Blood No Growth after 96 hours 04/07/18 20:25 Blood Culture - Preliminary Blood No Growth after 96 hours Assessment and Plan Assessment: Impression: 1 acute hypoxic respiratory failure secondary to congestive heart failure, systolic in nature patient is known to have history of ischemic cardiomyopathy. And LV dysfunction. Chest x-ray today showed a small left pleural effusion. 2 acute urinary tract infection, strongly suspect sepsis secondary to UTI. Urine culture is positive for E. coli. Patient remains on antibiotics. On Rocephin. 3 acute shock liver with elevated transaminases most likely secondary to hypoperfusion. 4 coronary artery disease and previous CABG with stent placements and ischemic cardiomyopathy post-AICD. 5 severe peripheral artery disease and multiple endovascular placement of stents including aortic stent left iliac femoral-femoral bypass surgery and great saphenous vein at [facility]. 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 14 history of recurrent episodes of syncope secondary to orthostatic hypotension. 15 history of mixed hyperlipidemia. 16 acute CVA with significantly abnormal CT of the brain involving right hemisphere and left frontal lobe. Recommendation: Continue present supportive care measures, family has been approached regarding seriously considering comfort care measures, still undecided, I believe they're waiting for more family members to get to see her, and they're coming from out of state. In the meantime continue DO NOT RESUSCITATE CODE STATUS, continue supportive care measures, overall prognostic picture is very poor. Critical care time is 33 minutes Time with Patient: Greater than 30
[2018-04-12 14:17] LABS: Glucose,Whole Blood 184 mg/dL (75-99)
[2018-04-12] MEDS: SODIUM CHLORIDE 0.9% 1,000 ML IV SCH (14:17)
[2018-04-12 15:12] LABS: Glucose,Whole Blood 155 mg/dL (75-99)
[2018-04-12 16:05] LABS: Glucose,Whole Blood 150 mg/dL (75-99)
--- NOTE | 2018-04-12 17:07 | P.PN ---
Subjective This is a 73-year-old female one of Dr. Latha Amezcua with a previous medical history significant for coronary artery disease status post coronary artery bypass graft with ischemic cardio myopathy and percutaneous coronary intervention and a total of 4 stents placement last one was put in the LAD back in November 2014, AICD placement, cardiomyopathy EF 43%, CABG with ischemic heart disease, patent HA, saphenous vein graft to RCA, 100% occluded circumflex with collaterals, recent echocardiogram revealed echo 20-25% with severe global hypokinesia, moderate MR, moderate pulmonary hypertension October 2017 echocardiogram.history of left subclavian stenosis status post stenting, carotid artery disease status post bilateral carotid endarterectomies, severe peripheral arterial occlusive disease, vasculitis , severe PAD with recent endovascular placement of aortic stent for occlusive disease of the aorta, left iliac stent, fem-fem bypass with greater saphenous vein at [facility]. Goldie at [facility], her arterial ulcers in the legs have since then resolved after vascular intervention. She has a tilt table positive test with drop on systolic blood pressure, required florinef Patient complained of early satiety, bloating, weight loss, was seen in the office and was prescribed Reglan, no antibiotic was given, patient now comes in with increasing fatigue, started getting around the house, altered mentation, no melena hematochezia, no diarrhea, has chills, she comes in septic, she got into respiratory failure, 4 hours after initial ER evaluation, requiring intubation. In the emergency room. Her liver function tests in December were normal, however on presentation, ammonia was 9 troponin 0.2 lactic acid 5.2 BUN 43 creatinine 0.9 bilirubin 2.5 AST 3607 ALT 2075, the basic count 10.2 INR 2.4 patient is not on any anticoagulation at home urinalysis shows significant pyuria of 81 with many WBC clumping noted cloudy urine specific gravity of 1.043 , urine drug screen negative.. CAT scan of the abdomen shows moderate L3-L4 bony spinal stenosis, sigmoid diverticulosis without diverticulitis, mild ascites, decreased density lower lobe right kidney related to renal ischemia and no evidence of renal mass patchy atelectasis lung bases prior cholecystectomy no mesenteric edema Patient currently is in ICU, sedated, mechanical ventilation tidal volume 400 assist control 20 FiO2 45% with PEEP of 5 patient is not responsive to any stimuli, follows in the ICU by multiple specialists including capacitor tester Dr. Madrid, cardiology, GI, services 04/09: Patient continues to be in ICU, sedated, mechanical ventilation tidal volume 400 assist control 20, FiO2 45% with a PEEP of 5. Patient is not responsive to any stimuli. Liver enzymes are improving. Patient continues to be intubated and sedated. There was noted hemiparesis of the left arm which is new. Hemoglobin is 10.1, platelets 129 INR 2.3, ABG pH 7.6, potassium 2.9, chloride 97 BUN 46 creatinine 1.13, AST 2107, ALT 1471, alkaline phosphatase 178. Urinary output 50-70 mL per hour. 04/10- CAT scan of the brain shows a new acute large right-sided infarct involving frontoparietal region with occipital extension. New evolving smaller but moderate-sized acute infarct left frontal lobe. Chest x-ray shows small left pleural effusion. Multiple family members are at the bedside. Patient has been made DO NOT RESUSCITATE. Patient has been off propofol for 24 hours and is unresponsive. They have a family member driving from [place] and son coming from [facility] and they are planning to make her comfort care only at that time. 04/11: Results of CAT scan of the brain discussed with family. Family is waiting for family members to come from out of state to see patient prior to terminal wean. discussed that potentially terminal wean will occur Friday evening or Friday morning once family arrives. We will continue to make patient comfortable at this time. Questions answered. 04/12: Patient is resting and appears comfortable. There has been no change in responsiveness. Propofol has been DC'd and morphine has been given for agitation and pain. The plan is continue to have a terminal wean possibly Friday night or Friday. Review Of Systems: Unable to be obtained as patient is intubated Objective - Vital Signs Vital signs: Vital Signs Temp 97.8 F 04/12/18 16:00 Pulse 100 04/12/18 16:00 Resp 23 04/12/18 16:00 BP 95/73 04/12/18 16:00 Pulse Ox 99 04/12/18 16:00 Intake & Output 04/11/18 04/12/18 04/12/18 18:59 06:59 18:59 Intake Total 913.466 535.268 708.169 Output Total 865 1035 1190 Balance 48.466 -499.732 -481.831 Weight 59.5 kg Intake: IV 330 110 180 0.9 KVO 130 110 80 Magnesium Sulfate-D5w Pmx 200 1 gm In Dextrose/Water 1 100ml.bag @ 100 mls/hr IVPB Q1H NOE Rx#: [id number] Sodium Chloride 0.9% 1, 100 000 ml @ 75 mls/hr IV . [id number] NOE Rx#:[id number] Intake, IV Titration 58.466 45.268 48.169 Amount Insulin Regular 100 unit 58.466 45.268 48.169 In Sodium Chloride 0.9% 100 ml @ Per Protocol IV .Q0M NOE Rx#:[id number] Tube Feeding 385 350 350 Other 140 30 130 Output: Urine 865 1035 1190 Other: Voiding Method Indwelling Catheter Indwelling Catheter Indwelling Catheter ABP, PAP, CO, CI - Last Documented Arterial Blood Pressure 71/62 - Constitutional General appearance: Present: average body habitus, no acute distress - EENT Eyes: Present: abnormal pupil ([place]) - Neck Neck: Absent: lymphadenopathy, rigidity - Respiratory Respiratory: bilateral: CTA, negative: diminished, dullness, rales, rhonchi, wheezing - Cardiovascular Rhythm: regular Heart sounds: normal: S1, S2 Abnormal Heart Sounds: Present: systolic murmur - Gastrointestinal General gastrointestinal: Present: decreased bowel sounds, soft - Integumentary Integumentary: Present: decreased turgor, pale. Absent: rash - Neurologic Neurologic Comment(s): Negative babinski sign, no response to painful stimuli - Musculoskeletal Musculoskeletal Comment(s): No response to painful stimuli - Labs CBC & Chem 7: 04/12/18 04:33 04/12/18 04:33 Labs: Abnormal Lab Results - Last 24 Hours (Table) 04/11/18 04/11/18 04/11/18 Range/Units 17:06 17:59 18:54 WBC (3.8-10.6) k/uL MCV (80.0-100.0) fL MCH (25.0-35.0) pg Plt Count (150-450) k/uL Chloride (98-107) mmol/L Carbon Dioxide (22-30) mmol/L BUN (7-17) mg/dL Creatinine (0.52-1.04) mg/dL Glucose (74-99) mg/dL POC Glucose (mg/dL) 152 H 149 H 165 H (75-99) mg/dL Total Bilirubin (0.2-1.3) mg/dL AST (14-36) U/L ALT (9-52) U/L Alkaline Phosphatase (38-126) U/L Total Protein (6.3-8.2) g/dL Albumin (3.5-5.0) g/dL 04/11/18 04/11/18 04/11/18 Range/Units 19:55 21:15 21:53 WBC (3.8-10.6) k/uL MCV (80.0-100.0) fL MCH (25.0-35.0) pg Plt Count (150-450) k/uL Chloride (98-107) mmol/L Carbon Dioxide (22-30) mmol/L BUN (7-17) mg/dL Creatinine (0.52-1.04) mg/dL Glucose (74-99) mg/dL POC Glucose (mg/dL) 167 H 155 H 179 H (75-99) mg/dL Total Bilirubin (0.2-1.3) mg/dL AST (14-36) U/L ALT (9-52) U/L Alkaline Phosphatase (38-126) U/L Total Protein (6.3-8.2) g/dL Albumin (3.5-5.0) g/dL 04/11/18 04/11/18 04/12/18 Range/Units 23:03 23:42 01:00 WBC (3.8-10.6) k/uL MCV (80.0-100.0) fL MCH (25.0-35.0) pg Plt Count (150-450) k/uL Chloride (98-107) mmol/L Carbon Dioxide (22-30) mmol/L BUN (7-17) mg/dL Creatinine (0.52-1.04) mg/dL Glucose (74-99) mg/dL POC Glucose (mg/dL) 162 H 181 H 182 H (75-99) mg/dL Total Bilirubin (0.2-1.3) mg/dL AST (14-36) U/L ALT (9-52) U/L Alkaline Phosphatase (38-126) U/L Total Protein (6.3-8.2) g/dL Albumin (3.5-5.0) g/dL 04/12/18 04/12/18 04/12/18 Range/Units 02:25 03:06 04:02 WBC (3.8-10.6) k/uL MCV (80.0-100.0) fL MCH (25.0-35.0) pg Plt Count (150-450) k/uL Chloride (98-107) mmol/L Carbon Dioxide (22-30) mmol/L BUN (7-17) mg/dL Creatinine (0.52-1.04) mg/dL Glucose (74-99) mg/dL POC Glucose (mg/dL) 162 H 170 H 166 H (75-99) mg/dL Total Bilirubin (0.2-1.3) mg/dL AST (14-36) U/L ALT (9-52) U/L Alkaline Phosphatase (38-126) U/L Total Protein (6.3-8.2) g/dL Albumin (3.5-5.0) g/dL 04/12/18 04/12/18 04/12/18 Range/Units 04:33 04:33 04:55 WBC 12.6 H (3.8-10.6) k/uL MCV 79.5 L (80.0-100.0) fL MCH 24.6 L (25.0-35.0) pg Plt Count 95 L (150-450) k/uL Chloride 97 L (98-107) mmol/L Carbon Dioxide 33 H (22-30) mmol/L BUN 101 H* (7-17) mg/dL Creatinine 1.15 H (0.52-1.04) mg/dL Glucose 158 H (74-99) mg/dL POC Glucose (mg/dL) 159 H (75-99) mg/dL Total Bilirubin 1.5 H (0.2-1.3) mg/dL AST 248 H (14-36) U/L ALT 637 H (9-52) U/L Alkaline Phosphatase 175 H (38-126) U/L Total Protein 5.2 L (6.3-8.2) g/dL Albumin 2.6 L (3.5-5.0) g/dL 04/12/18 04/12/1818 Range/Units 05:52 08:16 10:06 WBC (3.8-10.6) k/uL MCV (80.0-100.0) fL MCH (25.0-35.0) pg Plt Count (150-450) k/uL Chloride (98-107) mmol/L Carbon Dioxide (22-30) mmol/L BUN (7-17) mg/dL Creatinine (0.52-1.04) mg/dL Glucose (74-99) mg/dL POC Glucose (mg/dL) 156 H 207 H 171 H (75-99) mg/dL Total Bilirubin (0.2-1.3) mg/dL AST (14-36) U/L ALT (9-52) U/L Alkaline Phosphatase (38-126) U/L Total Protein (6.3-8.2) g/dL Albumin (3.5-5.0) g/dL 04/12/18 04/12/18 04/12/18 Range/Units 11:06 12:19 13:03 WBC (3.8-10.6) k/uL MCV (80.0-100.0) fL MCH (25.0-35.0) pg Plt Count (150-450) k/uL Chloride (98-107) mmol/L Carbon Dioxide (22-30) mmol/L BUN (7-17) mg/dL Creatinine (0.52-1.04) mg/dL Glucose (74-99) mg/dL POC Glucose (mg/dL) 168 H 157 H 163 H (75-99) mg/dL Total Bilirubin (0.2-1.3) mg/dL AST (14-36) U/L ALT (9-52) U/L Alkaline Phosphatase (38-126) U/L Total Protein (6.3-8.2) g/dL Albumin (3.5-5.0) g/dL 04/12/18 04/12/18 04/12/18 Range/Units 14:16 15:11 16:03 WBC (3.8-10.6) k/uL MCV (80.0-100.0) fL MCH (25.0-35.0) pg Plt Count (150-450) k/uL Chloride (98-107) mmol/L Carbon Dioxide (22-30) mmol/L BUN (7-17) mg/dL Creatinine (0.52-1.04) mg/dL Glucose (74-99) mg/dL POC Glucose (mg/dL) 184 H 155 H 150 H (75-99) mg/dL Total Bilirubin (0.2-1.3) mg/dL AST (14-36) U/L ALT (9-52) U/L Alkaline Phosphatase (38-126) U/L Total Protein (6.3-8.2) g/dL Albumin (3.5-5.0) g/dL Microbiology - Last 24 Hours (Table) 04/08/18 08:24 Blood Culture - Preliminary Blood No Growth after 96 hours 04/07/18 20:25 Blood Culture - Preliminary Blood No Growth after 96 hours Assessment and Plan Plan: 1. Sepsis with altered organ failure including acute hypoxemic respiratory failure, shock liver, hypoperfusion related to sepsis, lactic acidosis urinary tract infection seems to be the primary source, patient was in consultation by multiple specialists including critical care medicine, neurology, Rocephin 1 g daily IV, pancultures obtained. To be terminally weaned 2. Congestive heart failure, Lasix IV 80 mg every 12 hours Acute on chronic CK D stage II, monitor for renal hypoperfusion related to hypovolemia, maintain fluid resuscitation, 3. Elevated troponin most likely secondary to septic shock, cardiology is consulted, echocardiogram borderline concentric left ventricular hypertrophy. Overall ventricular systolic function is severely impaired with an EF of less than 20% 4. CAD post CABGand stent placements with ischemic cardiopathy post AICD. continue risk modifications,beta blockers would be continued with parameters on holding metoprolol, lisinopril and Imdur is on hold. 5. Acute liver failure possibly secondary to septic shock against passive CHF, patient also has underlying coagulopathy, patient has had also weight loss for the past few months, other labs include JAMMIE, and CA 19 CEA AFP, GI is on consult. Prior history of cholecystectomy, hepatitis panel reviewed 6. Severe PAD post evaluation by vascular surgery status post recent endovascular placement of aortic stent for occlusive disease of the aorta, left iliac stent, and fem-fem bypass with great saphenous vein at [facility]. Continue Pletal 100 mg orally twice every day. 7. Carotid artery disease status post carotid endarterectomies. Continue aspirin 81 mg daily and Plavix 75 mg daily as a liver enzymes show improvement. We will restart once stable following: Lipitor for secondary prevention. 8. Ucontrolled diabetes mellitus type 2 with PVD complications, neuropathy, currently on insulin correctional scale while nothing by mouth on a vent. home meds was on Lantus 10 units daily NovoLog scale with 4 units pre-meal 3 times a day, on trulicity. along with the Humalog per sliding scale. Continue BGM before each meal and bedtime. 7. Hypertension and hypertensive cardio vascular disease. lisinopril on hold secondary to hypotension, Imdur and hold, metoprolol will be held based on systolic blood pressure less than 100 IV Cardizem per cardiology 8. Hyperlipidemia. Hold patient on Lipitor 80 mg orally once every day. Dietary acute liver failure 9. History of left subclavian stenosis. Post stenting. Stable at this time. 10. History of GERD. IV Protonix daily is on Prevacid daily 11. Vitamin D deficiency. Hold patient on vitamin D 1000 units once every day. 12. Depression. Continue Cymbalta 60 mg orally once every day. 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 Gabapentin 100 mg 3 times a day 14. 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 15 History of left subclavianstenosis status post stenting 16 spinal stenosis L3-L4, L4-L5, severe R L3-L4 area with moderate severe spinal stenosis posterior disc bulging with facet arthropathy, based on CAT scan 09/20/2017physical therapy, might need consult with Dr. Crocker DVT prophylaxis. GI prophylaxis. Continue PPI. 15. Admit to inpatient. Estimated length of stay 2 midnights. 16. Patient is DO NOT RESUSCITATE. 17. Autonomic dysfunction Recurrent falls, physical therapy and occupational therapy to see the patient when stabilized 18. Hemiparesis left arm, CT of the brain without contrast. Impression and plan of care have been directed as dictated by the signing physician. Oly Reed nurse practitioner acting as scribe for signing physician.
[2018-04-12 17:16] LABS: Glucose,Whole Blood 181 mg/dL (75-99)
[2018-04-12 18:08] LABS: Glucose,Whole Blood 201 mg/dL (75-99)
[2018-04-12 19:02] LABS: Glucose,Whole Blood 181 mg/dL (75-99)
[2018-04-12 20:02] LABS: Glucose,Whole Blood 145 mg/dL (75-99)
[2018-04-12 21:09] LABS: Glucose,Whole Blood 127 mg/dL (75-99)
[2018-04-12] MEDS: INSULIN REGULAR 100 UNIT in SODIUM CHLORIDE 0.9% 100 ML IV SCH (21:11)
[2018-04-12 22:03] LABS: Glucose,Whole Blood 141 mg/dL (75-99)
[2018-04-12] MEDS ORDERED: MIDAZOLAM 2 MG/2 ML VIAL IV STA (23:06)
[2018-04-12] MEDS ORDERED: PROPOFOL 1,000 MG in EMPTY BAG 1 BAG IV SCH (23:15)
[2018-04-12 23:24] LABS: Glucose,Whole Blood 151 mg/dL (75-99)
--- NOTE | 2018-04-12 23:55 | XR ---
EXAMINATION TYPE: XR chest 1V portable DATE OF EXAM: 04/12/2018 COMPARISON: Today HISTORY: Check tube placement TECHNIQUE: Single frontal view of the chest is obtained. FINDINGS: Endotracheal tube is 4.3 cm from the shannan. There is small left pleural effusion. There i s mild infiltrate in the medial right lower lobe. There is nasogastric tube in good position. There i s left axillary pacemaker with the lead tip in right ventricle. There is no gross heart failure. IMPRESSION: There is decreased left pleural effusion compared to exam this morning. Endotracheal tub e in good position. Stable mild right lower lobe pneumonia. No heart failure seen.
[2018-04-13 00:01] LABS: Glucose,Whole Blood 144 mg/dL (75-99)
[2018-04-13 02:19] LABS: Glucose,Whole Blood 139 mg/dL (75-99)
[2018-04-13] MEDS: SODIUM CHLORIDE 0.9% 1,000 ML IV SCH (02:47)
[2018-04-13 02:59] LABS: Glucose,Whole Blood 108 mg/dL (75-99)
[2018-04-13] MEDS: DEXAMETHASONE SOD PHOSPHATE 4 MG/ML 1 ML VIAL IV SCH ×2 (03:03→11:56)
[2018-04-13] MEDS: IPRATROPIUM-ALBUTEROL 3 ML NEB INHALATION SCH ×3 (03:10→10:39)
[2018-04-13 04:56] LABS: ABG Base Excess 11.8 mmol/L; ABG HCO3 34 mmol/L (21-25); ABG Oxygen Saturation 97.7 % (94-97); ABG PCO2 35 mmHg (35-45); ABG PO2 122 mmHg (83-108); ABG TCO2 35 mmol/L (19-24)
[2018-04-13 04:59] LABS: ABG PH 7.59 (7.35-7.45)
[2018-04-13 05:12] LABS: Glucose,Whole Blood 201 mg/dL (75-99)
[2018-04-13 06:26] LABS: Glucose,Whole Blood 227 mg/dL (75-99)
[2018-04-13 06:56] LABS: HCT 35.6 % (34.0-46.0); HGB 11.1 gm/dL (11.4-16.0); Hypochromasia Marked; MCH 24.1 pg (25.0-35.0); MCHC 31.1 g/dL (31.0-37.0); MCV 77.4 fL (80.0-100.0); Mean Platelet Volume 9.8; Microcytosis Slight; Poikilocytosis Slight; RDW 15.3 % (11.5-15.5); WBC 11.4 k/uL (3.8-10.6)
[2018-04-13 06:59] LABS: Platelet Count 84 k/uL (150-450)
[2018-04-13 07:04] LABS: Glucose,Whole Blood 243 mg/dL (75-99)
[2018-04-13 07:17] LABS: Albumin 2.6 g/dL (3.5-5.0); Calcium 8.6 mg/dL (8.4-10.2); Magnesium 1.8 mg/dL (1.6-2.3); Phosphorus 3.9 mg/dL (2.5-4.5); Potassium 4.6 mmol/L (3.5-5.1); Total Bilirubin 1.9 mg/dL (0.2-1.3); Total Protein 5.1 g/dL (6.3-8.2)
[2018-04-13 08:01] VITALS: TEMP 98.8
[2018-04-13] MEDS: CHLORHEXIDINE GLUCONATE 15 ML CUP MUCOUS MEM SCH (08:02)
[2018-04-13] MEDS: ENOXAPARIN 30 MG/0.3 ML SYRINGE SQ SCH (08:04)
[2018-04-13] MEDS: PANTOPRAZOLE 40 MG/10 ML VIAL IVP SCH (08:06)
[2018-04-13] MEDS: CLOPIDOGREL 75 MG TAB PO SCH (08:06)
[2018-04-13] MEDS: METOPROLOL TARTRATE 25 MG TAB PO SCH ×2 (08:06→11:56)
[2018-04-13] MEDS: GABAPENTIN 100 MG CAP PO SCH ×2 (08:06→11:56)
[2018-04-13] MEDS: ASPIRIN 81 MG PO SCH (08:06)
[2018-04-13] MEDS: DULoxetine HCL 60 MG CAPSULE.DR PO SCH (08:06)
[2018-04-13 08:12] LABS: Glucose,Whole Blood 253 mg/dL (75-99)
[2018-04-13 09:06] LABS: Glucose,Whole Blood 238 mg/dL (75-99)
--- NOTE | 2018-04-13 09:33 | P.PN ---
Subjective Progress Note Date: 04/13/18 Principal diagnosis: CVA, mental status changes, respiratory failure, sepsis Progress note dated 04/13/2018 This is a 73-year-old female who was admitted back on April 07 with a diagnosis of CVA, mental status changes, respiratory failure and sepsis. The patient was intubated on April 08. She remains on the ventilator and apparently shows no progress to extubation. The patient remains on the mechanical ventilator and apparently she does not respond to any sort of purposeful weight. Her vent settings include the volume assist control mode rate of 12, tidal volume 400, FiO2 45% to be dropped to 40% and PEEP of 5. Blood gases show a PaO2 of 122 a PaCO2 of 35 and a pH of 7.59. This blood gases consistent with a respiratory and metabolic alkalosis. I've asked the nurses to stop the propofol which is running at 15 mics per kilogram per minute. The patient's on insulin drip at 7.5 units an hour and saline at 75 mL an hour. The patient's also receiving vital high protein at 35 with a goal of 35 mL an hour. She is a DO NOT RESUSCITATE and apparently the family is considering comfort measures on this patient. It seems appropriate. The patient's microbiologic studies show E. coli in the urine. In addition, chest x -ray shows evidence of a left pleural effusion and infiltrate and/or atelectasis at the right lung base. The brain CT done on April 09 shows evidence of an evolving new acute large right-sided infarct involving the frontoparietal region with occipital extension. There is a new evolving smaller but moderate-sized acute infarct in the left frontal lobe. Objective - Vital Signs Vital signs: Vital Signs Temp 98.8 F 04/13/18 08:00 Pulse 90 04/13/18 09:00 Resp 23 04/13/18 09:00 BP 124/58 04/13/18 09:00 Pulse Ox 100 04/13/18 09:00 Intake & Output 04/12/18 04/13/18 04/13/18 18:59 06:59 18:59 Intake Total 994.640 2520.585 189.045 Output Total 1345 840 250 Balance -418.616 684.585 -60.955 Weight 58.6 kg Intake: IV 280 825 150 0.9 KVO 80 Sodium Chloride 0.9% 1, 200 825 150 000 ml @ 75 mls/hr IV . [id number] NOE Rx#:[id number] Intake, IV Titration 56.384 54.585 4.045 Amount Insulin Regular 100 unit 56.384 54.585 4.045 In Sodium Chloride 0.9% 100 ml @ Per Protocol IV .Q0M NOE Rx#:[id number] Tube Feeding 420 555 35 Other 170 90 Output: Urine 1345 840 250 Other: Voiding Method Indwelling Catheter Indwelling Catheter Indwelling Catheter ABP, PAP, CO, CI - Last Documented Arterial Blood Pressure 71/62 - Exam No acute distress, sedated, on propofol, but an orally placed endotracheal tube and NG tube. Her exam is significantly limited both by her sedation and CVA. HEENT examination is grossly unremarkable. Mucous membranes are moist. Neck supple. Full range of motion. No adenopathy thyromegaly or neck vein distention. Cardiovascular examination reveals regular rhythm rate. S1-S2 normal. No S3 or S4. No discernible murmur noted. Heart sounds are distant. Lungs reveal scattered bilateral rhonchi. Breath sounds equal. No crackles. No wheezes. Abdomen soft without bowel sounds. No masses or obvious tenderness. Extremities are intact. No cyanosis clubbing or edema. Skin is without rash or lesion. Neurologic examination could not be assessed. - Labs CBC & Chem 7: 04/13/18 06:43 04/13/18 06:43 Labs: Abnormal Lab Results - Last 24 Hours (Table) 04/12/18 04/12/18 04/12/18 Range/Units 10:06 11:06 12:19 WBC (3.8-10.6) k/uL Hgb (11.4-16.0) gm/dL MCV (80.0-100.0) fL MCH (25.0-35.0) pg Plt Count (150-450) k/uL ABG pH (7.35-7.45) ABG pO2 (83-108) mmHg ABG HCO3 (21-25) mmol/L ABG Total CO2 (19-24) mmol/L ABG O2 Saturation (94-97) % BUN (7-17) mg/dL Glucose (74-99) mg/dL POC Glucose (mg/dL) 171 H 168 H 157 H (75-99) mg/dL Total Bilirubin (0.2-1.3) mg/dL AST (14-36) U/L ALT (9-52) U/L Alkaline Phosphatase (38-126) U/L Total Protein (6.3-8.2) g/dL Albumin (3.5-5.0) g/dL 04/12/18 04/12/18 04/12/18 Range/Units 13:03 14:16 15:11 WBC (3.8-10.6) k/uL Hgb (11.4-16.0) gm/dL MCV (80.0-100.0) fL MCH (25.0-35.0) pg Plt Count (150-450) k/uL ABG pH (7.35-7.45) ABG pO2 (83-108) mmHg ABG HCO3 (21-25) mmol/L ABG Total CO2 (19-24) mmol/L ABG O2 Saturation (94-97) % BUN (7-17) mg/dL Glucose (74-99) mg/dL POC Glucose (mg/dL) 163 H 184 H 155 H (75-99) mg/dL Total Bilirubin (0.2-1.3) mg/dL AST (14-36) U/L ALT (9-52) U/L Alkaline Phosphatase (38-126) U/L Total Protein (6.3-8.2) g/dL Albumin (3.5-5.0) g/dL 04/12/18 04/12/18 04/12/18 Range/Units 16:03 17:14 18:07 WBC (3.8-10.6) k/uL Hgb (11.4-16.0) gm/dL MCV (80.0-100.0) fL MCH (25.0-35.0) pg Plt Count (150-450) k/uL ABG pH (7.35-7.45) ABG pO2 (83-108) mmHg ABG HCO3 (21-25) mmol/L ABG Total CO2 (19-24) mmol/L ABG O2 Saturation (94-97) % BUN (7-17) mg/dL Glucose (74-99) mg/dL POC Glucose (mg/dL) 150 H 181 H 201 H (75-99) mg/dL Total Bilirubin (0.2-1.3) mg/dL AST (14-36) U/L ALT (9-52) U/L Alkaline Phosphatase (38-126) U/L Total Protein (6.3-8.2) g/dL Albumin (3.5-5.0) g/dL 04/12/18 04/12/18 04/12/18 Range/Units 19:01 19:57 21:08 WBC (3.8-10.6) k/uL Hgb (11.4-16.0) gm/dL MCV (80.0-100.0) fL MCH (25.0-35.0) pg Plt Count (150-450) k/uL ABG pH (7.35-7.45) ABG pO2 (83-108) mmHg ABG HCO3 (21-25) mmol/L ABG Total CO2 (19-24) mmol/L ABG O2 Saturation (94-97) % BUN (7-17) mg/dL Glucose (74-99) mg/dL POC Glucose (mg/dL) 181 H 145 H 127 H (75-99) mg/dL Total Bilirubin (0.2-1.3) mg/dL AST (14-36) U/L ALT (9-52) U/L Alkaline Phosphatase (38-126) U/L Total Protein (6.3-8.2) g/dL Albumin (3.5-5.0) g/dL 04/12/18 04/12/18 04/12/18 Range/Units 22:02 23:23 23:58 WBC (3.8-10.6) k/uL Hgb (11.4-16.0) gm/dL MCV (80.0-100.0) fL MCH (25.0-35.0) pg Plt Count (150-450) k/uL ABG pH (7.35-7.45) ABG pO2 (83-108) mmHg ABG HCO3 (21-25) mmol/L ABG Total CO2 (19-24) mmol/L ABG O2 Saturation (94-97) % BUN (7-17) mg/dL Glucose (74-99) mg/dL POC Glucose (mg/dL) 141 H 151 H 144 H (75-99) mg/dL Total Bilirubin (0.2-1.3) mg/dL AST (14-36) U/L ALT (9-52) U/L Alkaline Phosphatase (38-126) U/L Total Protein (6.3-8.2) g/dL Albumin (3.5-5.0) g/dL 04/13/18 04/13/18 04/13/18 Range/Units 02:16 02:54 04:50 WBC (3.8-10.6) k/uL Hgb (11.4-16.0) gm/dL MCV (80.0-100.0) fL MCH (25.0-35.0) pg Plt Count (150-450) k/uL ABG pH 7.59 H* (7.35-7.45) ABG pO2 122 H (83-108) mmHg ABG HCO3 34 H (21-25) mmol/L ABG Total CO2 35 H (19-24) mmol/L ABG O2 Saturation 97.7 H (94-97) % BUN (7-17) mg/dL Glucose (74-99) mg/dL POC Glucose (mg/dL) 139 H 108 H (75-99) mg/dL Total Bilirubin (0.2-1.3) mg/dL AST (14-36) U/L ALT (9-52) U/L Alkaline Phosphatase (38-126) U/L Total Protein (6.3-8.2) g/dL Albumin (3.5-5.0) g/dL 04/13/18 04/13/18 04/13/18 Range/Units 05:10 06:25 06:43 WBC 11.4 H (3.8-10.6) k/uL Hgb 11.1 L (11.4-16.0) gm/dL MCV 77.4 L (80.0-100.0) fL MCH 24.1 L (25.0-35.0) pg Plt Count 84 L (150-450) k/uL ABG pH (7.35-7.45) ABG pO2 (83-108) mmHg ABG HCO3 (21-25) mmol/L ABG Total CO2 (19-24) mmol/L ABG O2 Saturation (94-97) % BUN (7-17) mg/dL Glucose (74-99) mg/dL POC Glucose (mg/dL) 201 H 227 H (75-99) mg/dL Total Bilirubin (0.2-1.3) mg/dL AST (14-36) U/L ALT (9-52) U/L Alkaline Phosphatase (38-126) U/L Total Protein (6.3-8.2) g/dL Albumin (3.5-5.0) g/dL 04/13/18 04/13/18 04/13/18 Range/Units 06:43 07:02 08:10 WBC (3.8-10.6) k/uL Hgb (11.4-16.0) gm/dL MCV (80.0-100.0) fL MCH (25.0-35.0) pg Plt Count (150-450) k/uL ABG pH (7.35-7.45) ABG pO2 (83-108) mmHg ABG HCO3 (21-25) mmol/L ABG Total CO2 (19-24) mmol/L ABG O2 Saturation (94-97) % BUN 103 H* (7-17) mg/dL Glucose 295 H (74-99) mg/dL POC Glucose (mg/dL) 243 H 253 H (75-99) mg/dL Total Bilirubin 1.9 H (0.2-1.3) mg/dL AST 120 H (14-36) U/L ALT 430 H (9-52) U/L Alkaline Phosphatase 150 H (38-126) U/L Total Protein 5.1 L (6.3-8.2) g/dL Albumin 2.6 L (3.5-5.0) g/dL 04/13/18 Range/Units 09:04 WBC (3.8-10.6) k/uL Hgb (11.4-16.0) gm/dL MCV (80.0-100.0) fL MCH (25.0-35.0) pg Plt Count (150-450) k/uL ABG pH (7.35-7.45) ABG pO2 (83-108) mmHg ABG HCO3 (21-25) mmol/L ABG Total CO2 (19-24) mmol/L ABG O2 Saturation (94-97) % BUN (7-17) mg/dL Glucose (74-99) mg/dL POC Glucose (mg/dL) 238 H (75-99) mg/dL Total Bilirubin (0.2-1.3) mg/dL AST (14-36) U/L ALT (9-52) U/L Alkaline Phosphatase (38-126) U/L Total Protein (6.3-8.2) g/dL Albumin (3.5-5.0) g/dL Microbiology - Last 24 Hours (Table) 04/07/18 20:25 Blood Culture - Preliminary Blood No Growth after 120 hours 04/08/18 08:24 Blood Culture - Preliminary Blood No Growth after 96 hours Assessment and Plan Assessment: Assessment Acute hypoxemic respiratory failure secondary to CVA, mental status changes, and respiratory failure along with sepsis, with intubation on April 08. Systolic congestive heart failure Acute bilateral evolving ischemic CVAs Acute urinary tract infection secondary to Escherichia coli Acute shock liver CAD with previous bypass grafting and stent placements and status post AICD placement Severe peripheral artery disease Status post endovascular placement of stents including aortic stent left iliac stent and femoral-femoral bypass surgery Severe carotid artery disease and previous carotid endarterectomy. History of hypertension Chronic kidney disease, stage II Diabetes mellitus with diabetic peripheral neuropathy History of subclavian stenosis, status post stenting History of depression Post polio syndrome History of spinal stenosis History of recurrent episodes of syncope secondary to orthostatic hypotension Hyperlipidemia Plan: Plan dated 04/13/2018 The patient's vent settings and blood gases were reviewed. The FiO2 could be turned down to 40%. I've asked the nurses to stop the propofol. She remains on insulin drip at 7.5 units an hour and a saline IV at 75 mL an hour. She is a DO NOT RESUSCITATE patient and she remains on vital high protein at 35 which is goal. Looking at her most recent brain scan, she has significant ischemic infarcts bilaterally more so on the right side than on the left side. Her mental status is very poor and off sedation, she is unresponsive. We will talk to the family about comfort measures. I think that's appropriate given the patient's multiple medical problems and severe current situation. Current x- ray and microbiology is reviewed. White count is 11.4, hemoglobin 0.1, hematocrit 35.6 and platelet count 84,000. BUN is 103 with a creatinine of 0.89. Sodium potassium chloride and CO2 are all normal. Anion gap is 10. Her total bilirubin is 1.9. AST is 120 ALT 430 and alkaline phosphatase 150. Critical care time is 36 minutes. Time with Patient: Greater than 30
[2018-04-13 10:02] LABS: Glucose,Whole Blood 206 mg/dL (75-99)
[2018-04-13 11:11] LABS: Glucose,Whole Blood 141 mg/dL (75-99)
[2018-04-13 12:14] LABS: Glucose,Whole Blood 131 mg/dL (75-99)
[2018-04-13 20:10] VITALS: BP 132/83; PULSE 91; RESP 22
--- NOTE | 2018-04-15 14:03 | P.DS ---
Providers Date of admission: 04/07/18 23:31 Expected date of discharge: 04/13/18 Attending physician: Audra Mcginnis Consults: 04/07/18 23:33 Consult Physician Routine Consulting Provider: Matt Dixon Consult Reason/Comments: shockLiver Do you want consulting provider notified?: Yes Consult Physician Routine Consulting Provider: Dieter Chavira Consult Reason/Comments: cad Do you want consulting provider notified?: Yes Consult Physician Routine Consulting Provider: Lashaun Nelson Consult Reason/Comments: ams Do you want consulting provider notified?: Yes 04/08/18 00:15 Consult Physician Routine Consulting Provider: Wei Duncan Consult Reason/Comments: icu Do you want consulting provider notified?: Yes 04/08/18 02:51 Consult Physician Stat Consulting Provider: Nikita Madrid Consult Reason/Comments: lactic acidosis, altered Do you want consulting provider notified?: Already Contacted 04/09/18 09:52 Consult Physician Urgent Consulting Provider: Lashaun Nelson Consult Reason/Comments: anoxic brain injury Do you want consulting provider notified?: Yes Primary care physician: Vladimir [facility] Course: This is a 73-year-old female one of Dr. Latha Amezcua with a previous medical history significant for coronary artery disease status post coronary artery bypass graft with ischemic cardio myopathy and percutaneous coronary intervention and a total of 4 stents placement last one was put in the LAD back in November 2014, AICD placement, cardiomyopathy EF 43%, CABG with ischemic heart disease, patent HA, saphenous vein graft to RCA, 100% occluded circumflex with collaterals, recent echocardiogram revealed echo 20-25% with severe global hypokinesia, moderate MR, moderate pulmonary hypertension October 2017 echocardiogram.history of left subclavian stenosis status post stenting, carotid artery disease status post bilateral carotid endarterectomies, severe peripheral arterial occlusive disease, vasculitis , severe PAD with recent endovascular placement of aortic stent for occlusive disease of the aorta, left iliac stent, fem-fem bypass with greater saphenous vein at [facility]. Goldie at [facility], her arterial ulcers in the legs have since then resolved after vascular intervention. She has a tilt table positive test with drop on systolic blood pressure, required florinef Patient complained of early satiety, bloating, weight loss, was seen in the office and was prescribed Reglan, no antibiotic was given, patient now comes in with increasing fatigue, started getting around the house, altered mentation, no melena hematochezia, no diarrhea, has chills, she comes in septic, she got into respiratory failure, 4 hours after initial ER evaluation, requiring intubation. In the emergency room. Her liver function tests in December were normal, however on presentation, ammonia was 9 troponin 0.2 lactic acid 5.2 BUN 43 creatinine 0.9 bilirubin 2.5 AST 3607 ALT 2075, the basic count 10.2 INR 2.4 patient is not on any anticoagulation at home urinalysis shows significant pyuria of 81 with many WBC clumping noted cloudy urine specific gravity of 1.043 , urine drug screen negative.. CAT scan of the abdomen shows moderate L3-L4 bony spinal stenosis, sigmoid diverticulosis without diverticulitis, mild ascites, decreased density lower lobe right kidney related to renal ischemia and no evidence of renal mass patchy atelectasis lung bases prior cholecystectomy no mesenteric edema Patient currently is in ICU, sedated, mechanical ventilation tidal volume 400 assist control 20 FiO2 45% with PEEP of 5 patient is not responsive to any stimuli, follows in the ICU by multiple specialists including automatic buffing wheel former Dr. Madrid, cardiology, GI, services 04/09: Patient continues to be in ICU, sedated, mechanical ventilation tidal volume 400 assist control 20, FiO2 45% with a PEEP of 5. Patient is not responsive to any stimuli. Liver enzymes are improving. Patient continues to be intubated and sedated. There was noted hemiparesis of the left arm which is new. Hemoglobin is 10.1, platelets 129 INR 2.3, ABG pH 7.6, potassium 2.9, chloride 97 BUN 46 creatinine 1.13, AST 2107, ALT 1471, alkaline phosphatase 178. Urinary output 50-70 mL per hour. 04/10- CAT scan of the brain shows a new acute large right-sided infarct involving frontoparietal region with occipital extension. New evolving smaller but moderate-sized acute infarct left frontal lobe. Chest x-ray shows small left pleural effusion. Multiple family members are at the bedside. Patient has been made DO NOT RESUSCITATE. Patient has been off propofol for 24 hours and is unresponsive. They have a family member driving from [place] and son coming from [facility] and they are planning to make her comfort care only at that time. 04/11: Results of CAT scan of the brain discussed with family. Family is waiting for family members to come from out of state to see patient prior to terminal wean. discussed that potentially terminal wean will occur Friday evening or Friday once family arrives. We will continue to make patient comfortable at this time. Questions answered. 04/12: Patient is resting and appears comfortable. There has been no change in responsiveness. Propofol has been DC'd and morphine has been given for agitation and pain. The plan is continue to have a terminal wean possibly Friday night or Friday. 04/13: Patient remains intubated and on mechanical ventilation. She is unresponsive. No change in condition. Awaiting family arrival this evening for terminal wean and patient will be transitioned to inpatient hospice. Late on the evening of April 13, patient was extubated once family arrived and changed over to hospice GIP care with comfort care only. Patient on April 14. Please see nursing documentation for details. Discharge diagnoses: 1. Acute bilateral evolving ischemic CVAs -- preliminary cause of 2. Acute anoxic encephalopathySepsis with multiorgan failure including acute hypoxemic respiratory failure, shock liver, hypoperfusion related to sepsis, lactic acidosis E. coli urinary tract infection seems to be the primary source 3. Acute on chronic systolic heart failure. 4. Acute renal failure on chronic CKD stage II 5. Elevated troponin most likely secondary to septic shock 6. CAD post CABG and stent placements with ischemic cardiopathy post AICD. 7. Acute liver failure possibly secondary to septic shock against passive CHF, patient also has underlying coagulopathy 8. Severe PAD post evaluation by vascular surgery status post recent endovascular placement of aortic stent for occlusive disease of the aorta, left iliac stent, and fem-fem bypass with great saphenous vein at [facility]. 9. Carotid artery disease status post carotid endarterectomies. 10. Ucontrolled diabetes mellitus type 2 with hyperglycemia and PVD, neuropathy 11. Hypertension and hypertensive cardiovascular disease. 12. Hyperlipidemia. 13. History of left subclavian stenosis. 14. History of GERD. 15. Vitamin D deficiency. 16. Recurrent Depression. 17. Post polio. 18. 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 19. History of left subclavianstenosis status post stenting 20. Spinal stenosis L3-L4, L4-L5, severe R L3-L4 area with moderate severe spinal stenosis posterior disc bulging with facet arthropathy 21. Autonomic dysfunction with recurrent falls 22. Hemiparesis left arm Plan: Transition to inpatient hospice Impression and plan of care have been directed as dictated by the signing physician. Edie Martinez nurse practitioner acting as scribe for signing physician. Patient Condition at Discharge: Undetermined Plan - Discharge Summary New Discharge Prescriptions: No Action Clopidogrel [Plavix] 75 mg PO DAILY@0900 Lansoprazole [Prevacid] 30 mg PO DAILY@0900 DULoxetine HCL [Cymbalta] 60 mg PO DAILY@0900 Multivitamins, Thera [Multivitamin (formulary)] 1 tab PO DAILY@0900 Ubidecarenone [Co Q-10] 400 mg PO DAILY@0900 Nitroglycerin Sl Tabs [Nitrostat] 0.4 mg SUBLINGUAL Q5M PRN PRN Reason: Chest Pain Bifidobacterium Infantis [Align] 4 mg PO DAILY@0900 Lifitegrast [Xiidra] 1 drop BOTH EYES BID Dulaglutide [Trulicity] 0.75 mg SQ WE Ketorolac 0.5% Ophth Soln [Acular 0.5%] 1 drops LEFT EYE BID INSULIN LISPRO (humaLOG) [humaLOG] 4 units SQ AC-TID@,, Insulin Glargine [Lantus] 10 units SQ HS@2100 INSULIN LISPRO (humaLOG) [humaLOG] See Protocol SQ ACHS Gabapentin [Neurontin] 100 mg PO TID@0900,1200,1700 Fenofibrate [Lofibra] 160 mg PO DAILY@0900 Calcium Carbonate 648mg 648 mg PO BID@ Midodrine [ProAmatine] 10 mg PO TID@0800,1300,1700 #180 tab Acetaminophen/Diphenhydramine [Tylenol PM 500-25mg] 1 - 2 tab PO HS Aspirin EC [Ecotrin Low Dose] 81 mg PO DAILY Atorvastatin [Lipitor] 80 mg PO HS Cholecalciferol (Vitamin D3) [Vitamin D3] 2,000 unit PO DAILY Lisinopril [Zestril] 5 mg PO DAILY Spironolactone [Aldactone] 25 mg PO DAILY Discharge Medication List Clopidogrel [Plavix] 75 mg PO DAILY@0900 11/22/14 [History] DULoxetine HCL [Cymbalta] 60 mg PO DAILY@0900 09/17/17 [History] Lansoprazole [Prevacid] 30 mg PO DAILY@89902/02/17 [History] Multivitamins, Thera [Multivitamin (formulary)] 1 tab PO DAILY@89906/16/17 [ History] Ubidecarenone [Co Q-10] 400 mg PO DAILY@89906/16/17 [History] Bifidobacterium Infantis [Align] 4 mg PO DAILY@89909/18/17 [History] Nitroglycerin Sl Tabs [Nitrostat] 0.4 mg SUBLINGUAL Q5M PRN 09/18/17 [History] Calcium Carbonate 648mg 648 mg PO BID@10/31/17 [History] Dulaglutide [Trulicity] 0.75 mg SQ WE 10/31/17 [History] Fenofibrate [Lofibra] 160 mg PO DAILY@89910/31/17 [History] Gabapentin [Neurontin] 100 mg PO TID@0900,1200,1700 10/31/17 [History] INSULIN LISPRO (humaLOG) [humaLOG] 4 units SQ AC-TID@,,17 10/31/17 [History] INSULIN LISPRO (humaLOG) [humaLOG] See Protocol SQ ACHS 10/31/17 [History] Insulin Glargine [Lantus] 10 units SQ HS@2100 10/31/17 [History] Ketorolac 0.5% Ophth Soln [Acular 0.5%] 1 drops LEFT EYE BID 10/31/17 [History] Lifitegrast [Xiidra] 1 drop BOTH EYES BID 10/31/17 [History] Midodrine [ProAmatine] 10 mg PO TID@0800,1300,1700 #180 tab 12/22/17 [Rx] Acetaminophen/Diphenhydramine [Tylenol PM 500-25mg] 1 - 2 tab PO HS 04/07/18 [ History] Aspirin EC [Ecotrin Low Dose] 81 mg PO DAILY 04/07/18 [History] Atorvastatin [Lipitor] 80 mg PO HS 04/07/18 [History] Cholecalciferol (Vitamin D3) [Vitamin D3] 2,000 unit PO DAILY 04/07/18 [History] Lisinopril [Zestril] 5 mg PO DAILY 04/07/18 [History] Spironolactone [Aldactone] 25 mg PO DAILY 04/07/18 [History] Follow up Appointment(s)/Referral(s): Vladimir Azul MD [Primary Care Provider] - 1-2 days Discharge Disposition: DISCH TO [facility]
== END 2018-04-13 21:21 | disposition hospice, home (50) | DRG 870 ==
LOC: EC 20:17 → 2SICU 23:31
PROVIDERS: ADMIT Family Medicine; ATTEND Family Medicine
PROC: 03HY32Z Insertion of Monitoring Device into Upper Artery, Percutaneous Approach (ICD-10-PCS; principal; 2018-04-07)
PROC: 5A1955Z Respiratory Ventilation, Greater than 96 Consecutive Hours (ICD-10-PCS; 2018-04-08)
PROC: 0BH17EZ Insertion of Endotracheal Airway into Trachea, Via Natural or Artificial Opening (ICD-10-PCS; 2018-04-08)
DX: A41.51 Sepsis due to Escherichia coli [E. coli] (principal); K72.00 Acute and subacute hepatic failure without coma; J96.01 Acute respiratory failure with hypoxia; J96.02 Acute respiratory failure with hypercapnia; R65.21 Severe sepsis with septic shock; I50.23 Acute on chronic systolic (congestive) heart failure; I63.9 Cerebral infarction, unspecified; R57.0 Cardiogenic shock; N39.0 Urinary tract infection, site not specified; E87.4 Mixed disorder of acid-base balance; I13.0 Hypertensive heart and chronic kidney disease with heart failure and stage 1 through stage 4 chronic kidney disease, or unspecified chronic kidney disease; F05 Delirium due to known physiological condition; G93.1 Anoxic brain damage, not elsewhere classified; R18.8 Other ascites; G81.91 Hemiplegia, unspecified affecting right dominant side; N18.2 Chronic kidney disease, stage 2 (mild); Z66 Do not resuscitate; I25.5 Ischemic cardiomyopathy; Z95.810 Presence of automatic (implantable) cardiac defibrillator; I25.10 Atherosclerotic heart disease of native coronary artery without angina pectoris; Z95.1 Presence of aortocoronary bypass graft; E11.42 Type 2 diabetes mellitus with diabetic polyneuropathy; E11.22 Type 2 diabetes mellitus with diabetic chronic kidney disease; F32.9 Major depressive disorder, single episode, unspecified; D63.1 Anemia in chronic kidney disease; E11.43 Type 2 diabetes mellitus with diabetic autonomic (poly)neuropathy; E11.51 Type 2 diabetes mellitus with diabetic peripheral angiopathy without gangrene; E55.9 Vitamin D deficiency, unspecified; E78.2 Mixed hyperlipidemia; I25.2 Old myocardial infarction; K21.9 Gastro-esophageal reflux disease without esophagitis; G14 Postpolio syndrome; Z51.5 Encounter for palliative care; Z79.02 Long term (current) use of antithrombotics/antiplatelets; Z79.899 Other long term (current) drug therapy; Z79.4 Long term (current) use of insulin; Z79.82 Long term (current) use of aspirin; Z91.040 Latex allergy status; Z88.5 Allergy status to narcotic agent; Z88.8 Allergy status to other drugs, medicaments and biological substances; Z91.048 Other nonmedicinal substance allergy status; M19.90 Unspecified osteoarthritis, unspecified site; Z90.49 Acquired absence of other specified parts of digestive tract; Z90.710 Acquired absence of both cervix and uterus; Z80.8 Family history of malignant neoplasm of other organs or systems; Z82.49 Family history of ischemic heart disease and other diseases of the circulatory system; Z95.5 Presence of coronary angioplasty implant and graft; Z95.820 Peripheral vascular angioplasty status with implants and grafts; Z98.42 Cataract extraction status, left eye; F41.9 Anxiety disorder, unspecified; M48.061 Spinal stenosis, lumbar region without neurogenic claudication; M46.96 Unspecified inflammatory spondylopathy, lumbar region; R74.8 Abnormal levels of other serum enzymes; I65.21 Occlusion and stenosis of right carotid artery; I65.01 Occlusion and stenosis of right vertebral artery; D69.6 Thrombocytopenia, unspecified; I27.20 Pulmonary hypertension, unspecified; K57.30 Diverticulosis of large intestine without perforation or abscess without bleeding; R29.6 Repeated falls; R29.715 NIHSS score 15; Z86.73 Personal history of transient ischemic attack (TIA), and cerebral infarction without residual deficits
CPT/HCPCS: 31500; 36415; 36600; 70450; 70496; 70498; 71045; 74176; 80053; 80061; 80074; 80306; 81001; 82105; 82140; 82378; 82533; 82550; 82553; 82805; 83036; 83516; 83520; 83605; 83690; 83735; 84100; 84132; 84484; 85025; 85027; 85610; 85730; 86038; 86301; 87040; 87070; 87077; 87086; 87186; 87205; 93005; 93306; 94002; 94003; 94640; 95816; 96361; 96365; 96367; 96375; 99291

== ENCOUNTER 2018-04-13 12:23 | Inpatient (IN) | payer MEDICAID ==
[2018-04-13] MEDS ORDERED: LORazepam 2 MG/ML INJ IV PRN (12:29)
[2018-04-13] MEDS ORDERED: MORPHINE SULFATE 2 MG/ML SYRINGE IV PRN (12:29)
[2018-04-13] MEDS ORDERED: ATROPINE OPHTH SOLN 1% 5ML BTL SUBLINGUAL PRN (12:29)
[2018-04-13] MEDS ORDERED: ONDANSETRON 4 MG/2 ML VIAL IVP PRN (12:29)
[2018-04-13] MEDS ORDERED: ACETAMINOPHEN SUPPOSITORY 650 MG SUPP RECTAL PRN (12:29)
[2018-04-13] MEDS ORDERED: SCOPOLAMINE 1.5MG/72HR PATCH TRANSDERM SCH (12:30)
[2018-04-13] MEDS: MORPHINE SULFATE (100 MG/2 ML) 100 MG in SODIUM CHLORIDE 0.9% 100 ML IV SCH (21:42)
[2018-04-14] MEDS: MORPHINE SULFATE (100 MG/2 ML) 100 MG in SODIUM CHLORIDE 0.9% 100 ML IV SCH ×2 (06:19→17:54)
[2018-04-14 14:47] VITALS: RESP 3
[2018-04-14 17:07] VITALS: PULSE 108
== END 2018-04-14 22:54 | disposition expired | DRG 951 ==
LOC: 2SICU 21:22 → 3NMEDONC 04-14 18:25
PROVIDERS: ADMIT Family Medicine; ATTEND Family Medicine
DX: Z51.5 Encounter for palliative care (principal); I63.9 Cerebral infarction, unspecified; I50.23 Acute on chronic systolic (congestive) heart failure; A41.9 Sepsis, unspecified organism; R65.21 Severe sepsis with septic shock; K72.00 Acute and subacute hepatic failure without coma; G81.91 Hemiplegia, unspecified affecting right dominant side; I13.0 Hypertensive heart and chronic kidney disease with heart failure and stage 1 through stage 4 chronic kidney disease, or unspecified chronic kidney disease; G93.1 Anoxic brain damage, not elsewhere classified; N17.9 Acute kidney failure, unspecified; F33.9 Major depressive disorder, recurrent, unspecified; N39.0 Urinary tract infection, site not specified; E11.22 Type 2 diabetes mellitus with diabetic chronic kidney disease; E11.65 Type 2 diabetes mellitus with hyperglycemia; E11.51 Type 2 diabetes mellitus with diabetic peripheral angiopathy without gangrene; E11.40 Type 2 diabetes mellitus with diabetic neuropathy, unspecified; I25.5 Ischemic cardiomyopathy; Z66 Do not resuscitate; I25.10 Atherosclerotic heart disease of native coronary artery without angina pectoris; N18.2 Chronic kidney disease, stage 2 (mild); E78.5 Hyperlipidemia, unspecified; E55.9 Vitamin D deficiency, unspecified; M48.061 Spinal stenosis, lumbar region without neurogenic claudication; F45.8 Other somatoform disorders; Z95.1 Presence of aortocoronary bypass graft; Z95.5 Presence of coronary angioplasty implant and graft; Z95.828 Presence of other vascular implants and grafts; Z86.79 Personal history of other diseases of the circulatory system; Z86.12 Personal history of poliomyelitis